=== PATIENT | female | born 1935 | race African-American/Black ===

== ENCOUNTER 2016-10-02 09:14 | Emergency (ER) | payer OTHER, MEDICARE ==
[~2016-10-02] VITALS: Ht 154.9 cm; Wt 81.2 kg
[~2016-10-02 09:14] MED LIST: AMLO10TA2 PO; ASPI81TA2 PO; ATOR20TA PO; CARV3.122 PO; CLOP75TA27 PO; Cefpodoxime Proxetil PO; ESOM40CA25 PO; FOLI0.8T3 PO; FURO-68 PO; FURO-69 PO; HYDR-971 PO; HYDR100T24 PO; INSU100I13 SQ; LEVO75TA PO; LOSA100T2 PO; METH4TAB2 PO; METO-269 PO; ORPH100T PO; OXYC-323 PO; PANT40TA3 PO; SERT25TA4 PO; SEVE800T9 PO; TRAZ50TA15 PO
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
[2016-10-02 09:47] VITALS: BP 191/69
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
[2016-10-02] MEDS ORDERED: DIAZ5TAB PO (10:21)
== END 2016-10-02 10:50 | disposition home or self-care (01) ==
LOC: ER 09:14
DX: S16.1XXA Strain of muscle, fascia and tendon at neck level, initial encounter (principal); S20.211A Contusion of right front wall of thorax, initial encounter; S09.90XA Unspecified injury of head, initial encounter; E11.22 Type 2 diabetes mellitus with diabetic chronic kidney disease; I13.0 Hypertensive heart and chronic kidney disease with heart failure and stage 1 through stage 4 chronic kidney disease, or unspecified chronic kidney disease; N18.9 Chronic kidney disease, unspecified; I50.9 Heart failure, unspecified; E89.0 Postprocedural hypothyroidism; K21.9 Gastro-esophageal reflux disease without esophagitis; Z99.2 Dependence on renal dialysis; Z86.73 Personal history of transient ischemic attack (TIA), and cerebral infarction without residual deficits; V49.60XA Unspecified car occupant injured in collision with unspecified motor vehicles in traffic accident, initial encounter; Y93.89 Activity, other specified; Y92.410 Unspecified street and highway as the place of occurrence of the external cause; Y99.8 Other external cause status
CPT/HCPCS: 70450; 70486; 71010; 72125; 99284-25

== ENCOUNTER 2016-10-29 11:35 | Emergency (ER) | payer MEDICARE, OTHER ==
[~2016-10-29] VITALS: Ht 154.9 cm; Wt 80.7 kg
[~2016-10-29 11:35] MED LIST changes: +ASPI-630 PO; -ASPI81TA2 PO; -CLOP75TA27 PO; +CLOP75TA57 PO; +DIAZ5TAB PO
--- NOTE | 2016-10-29 12:28 | PHYS DOC ---
Past Medical History Past Medical History: Cancer, CHF, CVA, Diabetes-Type II, GERD, Hypertension, Hypothyroid, Renal Failure, Additional Disease, Other Additional Past Medical Histor: Breast cancer, dialysis T- Past Surgical History: Cancer Surgery, Cholecystectomy, Hysterectomy, Other Additional Past Surgical Histo: Fistula RUE, Bilateral mastectomy, THYROIDECTOMY, HERNIA Alcohol Use: None Drug Use: None Adult General Chief Complaint Chief Complaint: MECHANICAL FALL HPI HPI Patient is a 81 year old and [place] female who presents with a fall. She has a past medical history of Cancer, CHF, CVA, Diabetes-Type II, GERD, Hypertension , Hypothyroid, Renal Failure, Additional Disease, Other Review of Systems Review of Systems Constitutional: Denies fever or chills [] Eyes: Denies change in visual acuity, redness, or eye pain [] HENT: Denies nasal congestion or sore throat [] Respiratory: Denies cough or shortness of breath [] Cardiovascular: No additional information not addressed in HPI [] GI: Denies abdominal pain, nausea, vomiting, bloody stools or diarrhea [] : Denies dysuria or hematuria [] Musculoskeletal: Denies back pain or joint pain [] Integument: Denies rash or skin lesions [] Neurologic: Denies headache, focal weakness or sensory changes [] Endocrine: Denies polyuria or polydipsia [] Allergies Allergies Allergies Coded Allergies Type Severity Reaction Last Updated Verified No Known Drug Allergies 04/13/14 No Physical Exam Physical Exam Constitutional: Well developed, well nourished, no acute distress, non-toxic appearance. [] HENT: Normocephalic, atraumatic, bilateral external ears normal, oropharynx moist, no oral exudates, nose normal. [] Eyes: PERRLA, EOMI, conjunctiva normal, no discharge. [] Neck: Cervical collar in place no stridor. [] Cardiovascular:Heart rate regular rhythm, no murmur [] Lungs & Thorax: Bilateral breath sounds clear to auscultation [] Abdomen: Bowel sounds normal, soft, no tenderness, no masses, no pulsatile masses. [] Skin: Warm, dry, no erythema, no rash. [] Back: No tenderness, no CVA tenderness. [] Extremities: Palpation of the right knee with mild effusion noted, tender palpation over the left hip, no cyanosis, no clubbing, ROM intact, no edema. [] Neurologic: Alert and oriented X 3, normal motor function, normal sensory function, no focal deficits noted. [] Psychologic: Affect normal, judgement normal, mood normal. [] Current Patient Data Vital Signs Vital Signs Date Time Temp Pulse Resp B/P (MAP) Pulse Ox O2 Delivery O2 Flow Rate FiO2 10/29/16 14:09 68 18 173/82 (112) 97 Room Air 10/29/16 11:35 98.4 98.4 EKG EKG [] Radiology/Procedures Radiology/Procedures [facility] [address] [place] [address] IMAGING REPORT Signed PATIENT: BRANT HALL ACCOUNT: [id number] : 1935 LOCATION: ER AGE: 81 SEX: F EXAM STATUS: REG ER ORD. PHYSICIAN: KVNG ALLRED MD REASON: fall PROCEDURE: CT HEAD AND CERVICAL SPINE WO Indication fall. Pain. Injury to the head and neck. Noncontrast images of the head were obtained. The cervical spine was also evaluated. Images of the cervical spine were reformatted in the coronal and sagittal planes. Note is made of similar imaging 10/02/2016. CT head: Findings No acute calvarial finding is seen. The visualized paranasal sinuses are unremarkable. There is no subdural or epidural hematoma. Lucency in the left deep white matter compatible with an old insult is noted appearing similar. No mass or midline shift is seen. There is no hemorrhage. Acute finding or significant change when compared to the prior study is not seen. CT cervical spine: Findings. The lung apices are clear. A vascular stent is noted. There are occasional nodules in the right lobe of the thyroid appearing similar to the previous exam. A definite significant soft tissue finding is not seen. Review of axial images is negative with regards to fracture. Some degenerative changes are noted. Reformatted images show no fracture but confirm modest degenerative change. IMPRESSION: Spondylitic changes in the cervical spine. No fracture seen. No acute intracranial finding is seen PQRS Compliance Statement: One or more of the following individualized dose reduction techniques were utilized for this examination: 1. Automated exposure control 2. Adjustment of the mA and/or kV according to patient size 3. Use of iterative reconstruction technique DICTATED and SIGNED BY: POWER CARLIN MD DATE: 10/29/16 1307 CC: KVNG ALLRED MD; NICHOLAS FAIRCHILD MD ~ [id number] [place], [place] [id number] IMAGING REPORT Signed PATIENT: BRANT HALL ACCOUNT: [id number] : 1935 LOCATION: ER AGE: 81 SEX: F EXAM STATUS: REG ER ORD. PHYSICIAN: KVNG ALLRED MD REASON: fall PROCEDURE: LUMBAR SPINE 2-3V Indication fall, pain. AP and lateral views of the lumbar spine were obtained as well as a and coned-down view targeted to the lumbosacral junction. There is probable bony demineralization. No acute finding in the lumbar spine is seen. There are some facet degenerative changes. There is a probable hemangioma at L2. Vascular calcification is noted. Significant degenerative changes noted associated with the left hip IMPRESSION: No acute finding in the lumbar spine DICTATED and SIGNED BY: POWER CARLIN MD DATE: 10/29/16 1407 CC: KVNG ALLRED MD; NICHOLAS FAIRCHILD MD ~ [address] [id number] IMAGING REPORT Signed PATIENT: BRANT HALL ACCOUNT: [id number] : 1935 LOCATION: ER AGE: 81 SEX: F EXAM STATUS: REG ER ORD. PHYSICIAN: KVNG ALLRED MD REASON: fall PROCEDURE: THORACIC SPINE 3V Indication pain. AP and lateral views of the thoracic spine were obtained as well as a swimmer's There are some mild degenerative changes in the thoracic spine.. No acute finding is apparent. Vascular stent is noted in the right hemithorax. There is generalized cardiomegaly. IMPRESSION: No acute finding DICTATED and SIGNED BY: POWER CARLIN MD DATE: 10/29/16 1410 CC: KVNG ALLRED MD; NICHOLAS FAIRCHILD MD ~ [address] [id number] IMAGING REPORT Signed PATIENT: BRANT HALL ACCOUNT: [id number] : 1935 LOCATION: ER AGE: 81 SEX: F EXAM STATUS: PRE ER ORD. PHYSICIAN: KVNG ALLRED MD REASON: fall PROCEDURE: KNEE RIGHT 4V Indication fall, pain. AP oblique and lateral views of the right knee were obtained as well as a sunrise view. There is some medial joint space compartment narrowing. There is probable chondrocalcinosis. There is slight patellofemoral narrowing. Soft tissue swelling above the knee is noted and there is a probable small joint effusion. An acute bony finding is not seen. IMPRESSION: Chronic changes. No acute bony finding seen DICTATED and SIGNED BY: POWER CARLIN MD DATE: 10/29/16 1302 CC: KVNG ALLRED MD; NICHOLAS FAIRCHILD MD ~ [id number] [place] [address] IMAGING REPORT Signed PATIENT: BRANT HALL ACCOUNT: [id number] : 1935 LOCATION: ER AGE: 81 SEX: F EXAM STATUS: REG ER ORD. PHYSICIAN: KVNG ALLRED MD REASON: fall PROCEDURE: HIP LEFT 2V WITH PELVIS Indication fall. Pain. An AP view of the pelvis was obtained as well as individual AP and frog leg views of the left hip. There are some degenerative changes involving both hips manifested as medial joint space compartment narrowing. Some cystic degeneration is noted associated with the acetabulum of the left hip. No acute bony finding is seen IMPRESSION: No acute bony finding DICTATED and SIGNED BY: POWER CARLIN MD DATE: 10/29/161316 CC: KVNG ALLRED MD; NICHOLAS FAIRCHILD MD ~ Impressions: Neck sprain Closed head injury Right knee pain Muscle skeletal back pain Course & Med Decision Making Course & Med Decision Making Pertinent Labs and Imaging studies reviewed. (See chart for details) CT scan of her head neck and plain films of her pelvis, left hip, right knee, thoracic and lumbar spines did not show anything fracture or displaced. Patient being discharged with tramadol rate she was able to ambulate around the department. Return precautions given she is agreeable to the plan and being discharged in stable condition this time with her daughter. Dragon Disclaimer Dragon Disclaimer This electronic medical record was generated, in whole or in part, using a voice recognition dictation system. Departure Departure Impression: Primary Impression: Cervical strain Disposition: 01 HOME, SELF-CARE Condition: STABLE Referrals: NICHOLAS FAIRCHILD MD (PCP) Patient Instructions: Back Pain, Adult, [id number] Additional Instructions: The CAT scans and x-rays not show any broken. Your being discharged home. You can use tramadol as needed for pain. You can also tried Tylenol as well. Return ER for severe pain, confusion or other concerns. Scripts Tramadol Hcl (TRAMADOL HCL) 50 Mg Tablet 1 TAB PO PRN Q6HRS Y for PAIN, #20 TAB Prov: KVNG ALLRED MD 10/29/16 Problem Qualifiers Primary Impression: Cervical strain Encounter type: initial encounter Qualified Codes: S16.1XXA - Strain of muscle, fascia and tendon at neck level, initial encounter KVNG ALLRED MD Oct 29, 2016 12:28
--- NOTE | 2016-10-29 13:06 | RAD ---
Indication fall, pain. AP oblique and lateral views of the right knee were obtained as well as a sunrise view. There is some medial joint space compartment narrowing. There is probable chondrocalcinosis. There is slight patellofemoral narrowing. Soft tissue swelling above the knee is noted and there is a probable small joint effusion. An acute bony finding is not seen. IMPRESSION: Chronic changes. No acute bony finding seen
--- NOTE | 2016-10-29 13:19 | RAD ---
Indication fall. Pain. Injury to the head and neck. Noncontrast images of the head were obtained. The cervical spine was also evaluated. Images of the cervical spine were reformatted in the coronal and sagittal planes. Note is made of similar imaging 10/02/2016. CT head: Findings No acute calvarial finding is seen. The visualized paranasal sinuses are unremarkable. There is no subdural or epidural hematoma. Lucency in the left deep white matter compatible with an old insult is noted appearing similar. No mass or midline shift is seen. There is no hemorrhage. Acute finding or significant change when compared to the prior study is not seen. CT cervical spine: Findings. The lung apices are clear. A vascular stent is noted. There are occasional nodules in the right lobe of the thyroid appearing similar to the previous exam. A definite significant soft tissue finding is not seen. Review of axial images is negative with regards to fracture. Some degenerative changes are noted. Reformatted images show no fracture but confirm modest degenerative change. IMPRESSION: Spondylitic changes in the cervical spine. No fracture seen. No acute intracranial finding is seen PQRS Compliance Statement: One or more of the following individualized dose reduction techniques were utilized for this examination: 1. Automated exposure control 2. Adjustment of the mA and/or kV according to patient size 3. Use of iterative reconstruction technique
--- NOTE | 2016-10-29 13:21 | RAD ---
Indication fall. Pain. An AP view of the pelvis was obtained as well as individual AP and frog leg views of the left hip. There are some degenerative changes involving both hips manifested as medial joint space compartment narrowing. Some cystic degeneration is noted associated with the acetabulum of the left hip. No acute bony finding is seen IMPRESSION: No acute bony finding
--- NOTE | 2016-10-29 14:12 | RAD ---
Indication fall, pain. AP and lateral views of the lumbar spine were obtained as well as a and coned-down view targeted to the lumbosacral junction. There is probable bony demineralization. No acute finding in the lumbar spine is seen. There are some facet degenerative changes. There is a probable hemangioma at L2. Vascular calcification is noted. Significant degenerative changes noted associated with the left hip IMPRESSION: No acute finding in the lumbar spine
--- NOTE | 2016-10-29 14:14 | RAD ---
Indication pain. AP and lateral views of the thoracic spine were obtained as well as a swimmer's There are some mild degenerative changes in the thoracic spine.. No acute finding is apparent. Vascular stent is noted in the right hemithorax. There is generalized cardiomegaly. IMPRESSION: No acute finding
[2016-10-29] MEDS ORDERED: TRAM50TA PO (14:55)
[2016-10-29 15:03] VITALS: BP 168/71
== END 2016-10-29 15:14 | disposition home or self-care (01) ==
LOC: ER 11:35
DX: S16.1XXA Strain of muscle, fascia and tendon at neck level, initial encounter (principal); M25.552 Pain in left hip; M25.461 Effusion, right knee; M54.6 Pain in thoracic spine; M54.5 Low back pain; E11.22 Type 2 diabetes mellitus with diabetic chronic kidney disease; I13.0 Hypertensive heart and chronic kidney disease with heart failure and stage 1 through stage 4 chronic kidney disease, or unspecified chronic kidney disease; N18.9 Chronic kidney disease, unspecified; I50.9 Heart failure, unspecified; E89.0 Postprocedural hypothyroidism; K21.9 Gastro-esophageal reflux disease without esophagitis; Z99.2 Dependence on renal dialysis; Z90.49 Acquired absence of other specified parts of digestive tract; Z90.710 Acquired absence of both cervix and uterus; Z90.13 Acquired absence of bilateral breasts and nipples; Z86.73 Personal history of transient ischemic attack (TIA), and cerebral infarction without residual deficits; W18.39XA Other fall on same level, initial encounter; Y93.89 Activity, other specified; Y92.89 Other specified places as the place of occurrence of the external cause; Y99.8 Other external cause status
CPT/HCPCS: 70450; 72072; 72100; 72125; 73502; 73564; 99284-25

== ENCOUNTER 2016-11-01 21:44 | Emergency (ER) | payer MEDICARE, OTHER ==
[~2016-11-01] VITALS: Ht 154.9 cm; Wt 80.7 kg
[~2016-11-01 21:44] MED LIST changes: +TRAM50TA PO
[2016-11-01 22:37] LABS: BASO % 1 % (0-3); EOS % 4 % (0-3); HEMATOCRIT 35.7 % (36.0-47.0); HEMOGLOBIN 11.7 g/dL (12.0-15.5); LYMPH # 0.8 x10^3/uL (1.0-4.8); LYMPH % 13 % (24-48); MEAN CORPUSCULAR HEMOGLOBIN 33 pg (25-35); MEAN CORPUSCULAR HGB CONC 33 g/dL (31-37); MEAN CORPUSCULAR VOLUME 101 fL (79-100); MONO % 16 % (0-9); NEUT % 67 % (31-73); PLATELET COUNT 204 x10^3/uL (140-400); RED BLOOD COUNT 3.54 x10^6/uL (3.50-5.40); RED CELL DISTRIBUTION WIDTH 15.7 % (11.5-14.5); WHITE BLOOD COUNT 6.6 x10^3/uL (4.0-11.0)
[2016-11-01 22:44] LABS: INR 1.1 (0.8-1.1); PROTHROMBIN TIME PATIENT 13.6 SEC (11.7-14.0)
[2016-11-01 23:30] LABS: CALCIUM 8.1 mg/dL (8.5-10.1); CREATININE 7.4 mg/dL (0.6-1.0); GFR 6.4; POTASSIUM 4.3 mmol/L (3.5-5.1)
[2016-11-01 23:36] LABS: ALBUMIN 3.4 g/dL (3.4-5.0); ALBUMIN/GLOBULIN RATIO 0.9 (1.0-1.7); TOTAL BILIRUBIN 0.7 mg/dL (0.2-1.0); TOTAL PROTEIN 7.4 g/dL (6.4-8.2)
--- NOTE | 2016-11-01 23:51 | RAD ---
Examination: Ultrasound right upper extremity venous duplex HISTORY: History of right hand swelling COMPARISON: None TECHNIQUE: Grayscale, color Doppler 2D, spectral waveform analysis of the right upper extremity venous system performed. FINDINGS: The visualized internal jugular vein, subclavian vein, axillary vein, brachial vein, basilic vein, cephalic, radial and ulnar veins are patent. Patent appearing dialysis graft with the proximal anastomosis, mid graft, distal graft demonstrating vascular flow within. 2 areas of mild aneurysmal dilatation identified , one measuring 1.2 cm in the mid graft region and another in the measuring 1.1 cm in the distal graft region. IMPRESSION: 1. No evidence of deep venous thrombosis. 2. Patent dialysis graft. 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 Electronically signed by: Jacob Pearce MD (11/01/2016 11:47 PM)
[2016-11-02 00:40] VITALS: BP 183/77
--- NOTE | 2016-11-02 00:48 | PHYS DOC ---
Past Medical History Past Medical History: Cancer, CHF, CVA, Diabetes-Type II, GERD, Hypertension, Hypothyroid, Renal Failure, Additional Disease, Other Additional Past Medical Histor: Breast cancer, dialysis Past Surgical History: Cancer Surgery, Cholecystectomy, Hysterectomy, Other Additional Past Surgical Histo: Fistula RUE, Bilateral mastectomy, THYROIDECTOMY, HERNIA Alcohol Use: None Drug Use: None Adult General Chief Complaint Chief Complaint: MULTIPLE COMPLAINTS HPI HPI Patient is a 81 year old female with a history significant for hypertension, diabetes, CHF, PE, TIA who presents here today secondary to right upper extremity and right lower 70 swelling that started approximately 7:30 PM. Patient denies any fevers shakes chills nausea vomiting diarrhea chest pain. Patient reports that she is feeling short of breath however this is not new for her. Patient reports she gets dialyzed every Sunday and Sunday. Patient reports her primary care doctor is Dr. pickard, patient's kidney doctor Dr. Fuller. Patient's physical exam was significant for swelling to her right upper extremity. Patient graft had a positive bruit and thrill. Patient is neurovascularly intact. Patient's pulses were intact. Patient had good capillary refill. Sensation was intact. A Shantz lower 70 has actually no new edema. Patient does have edema to her knee which she reports this is chronic. Patient's labs were within normal limits. Patient's ultrasound which revealed no DVT. I discussed the case with Dr. Greene who is on-call for Dr. Fuller and he feels that the patient likely has central venous stenosis. Patient reports she has a history of central venous stenosis in the past and feels that this is likely what is going on currently. He has recommended that we discharge her to home and to follow-up as scheduled tomorrow for dialysis and they will schedule her as an outpatient for management of her central venous stenosis. Assessment and plan a 81-year-old female with a history significant for end- stage renal disease who has a graft in her right upper extremity presents here today with right upper ext edema. Case was discussed with her tablet repair to feel that the patient is stable to be discharged home and treated with her dialysis tomorrow at which time they will schedule her for outpatient procedure to correct the central venous stenosis that is likely the cause of her edema. Review of Systems Review of Systems Constitutional: Denies fever or chills [] Eyes: Denies change in visual acuity, redness, or eye pain [] All other review systems are negative except as documented in the history of present illness portion. Allergies Allergies Allergies Coded Allergies Type Severity Reaction Last Updated Verified No Known Drug Allergies 04/13/14 No Physical Exam Physical Exam Constitutional: Well developed, well nourished, no acute distress, non-toxic appearance. [] HENT: Normocephalic, atraumatic, bilateral external ears normal, oropharynx moist, no oral exudates, nose normal. [] Eyes: PERRLA, EOMI, conjunctiva normal, no discharge. [] Neck: Normal range of motion, no tenderness, supple, no stridor. [] Cardiovascular:Heart rate regular rhythm, Lungs & Thorax: Bilateral breath sounds clear to auscultation [] Abdomen: Bowel sounds normal, soft, no tenderness, no masses, no pulsatile masses. [] Skin: Warm, dry, no erythema, no rash. [] Back: No tenderness, no CVA tenderness. [] Extremities: See above. Neurologic: Alert and oriented X 3, normal motor function, normal sensory function, no focal deficits noted. [] Psychologic: Affect normal, judgement normal, mood normal. [] Current Patient Data Vital Signs Vital Signs Date Time Temp Pulse Resp B/P (MAP) Pulse Ox O2 Delivery O2 Flow Rate FiO2 11/02/16 00:03 70 162/77 (105) 98 Room Air 11/01/16 23:00 18 11/01/16 21:53 99.2 99.2 Lab Values Laboratory Tests Test 11/01/16 22:25 11/01/16 22:45 White Blood Count 6.6 x10^3/uL (4.0-11.0) Red Blood Count 3.54 x10^6/uL (3.50-5.40) Hemoglobin 11.7 g/dL (12.0-15.5) L Hematocrit 35.7 % (36.0-47.0) L Mean Corpuscular Volume 101 fL (79-100) H Mean Corpuscular Hemoglobin 33 pg (25-35) Mean Corpuscular Hemoglobin Concent 33 g/dL (31-37) Red Cell Distribution Width 15.7 % (11.5-14.5) H Platelet Count 204 x10^3/uL (140-400) Neutrophils (%) (Auto) 67 % (31-73) Lymphocytes (%) (Auto) 13 % (24-48) L Monocytes (%) (Auto) 16 % (0-9) H Eosinophils (%) (Auto) 4 % (0-3) H Basophils (%) (Auto) 1 % (0-3) Neutrophils # (Auto) 4.5 x10^3uL (1.8-7.7) Lymphocytes # (Auto) 0.8 x10^3/uL (1.0-4.8) L Monocytes # (Auto) 1.0 x10^3/uL (0.0-1.1) Eosinophils # (Auto) 0.2 x10^3/uL (0.0-0.7) Basophils # (Auto) 0.0 x10^3/uL (0.0-0.2) Prothrombin Time 13.6 SEC (11.7-14.0) Prothrombin Time INR 1.1 (0.8-1.1) Sodium Level 139 mmol/L (136-145) Potassium Level 4.3 mmol/L (3.5-5.1) Chloride Level 104 mmol/L (98-107) Carbon Dioxide Level 25 mmol/L (21-32) Anion Gap 10 (6-14) Blood Urea Nitrogen 39 mg/dL (7-20) H Creatinine 7.4 mg/dL (0.6-1.0) H Estimated GFR (Cockcroft-Gault) 6.4 BUN/Creatinine Ratio 5 (6-20) L Glucose Level 94 mg/dL (70-99) Calcium Level 8.1 mg/dL (8.5-10.1) L Total Bilirubin 0.7 mg/dL (0.2-1.0) Aspartate Amino Transferase (AST) 9 U/L (15-37) L Alanine Aminotransferase (ALT) 9 U/L (14-59) L Alkaline Phosphatase 120 U/L (46-116) H Total Protein 7.4 g/dL (6.4-8.2) Albumin 3.4 g/dL (3.4-5.0) Albumin/Globulin Ratio 0.9 (1.0-1.7) L Laboratory Tests 11/01/16 22:25 Laboratory Tests 11/01/16 22:45 EKG EKG [] Radiology/Procedures Radiology/Procedures [] Course & Med Decision Making Course & Med Decision Making Pertinent Labs and Imaging studies reviewed. (See chart for details) [] Dragon Disclaimer Dragon Disclaimer This electronic medical record was generated, in whole or in part, using a voice recognition dictation system. Departure Departure Impression: Primary Impression: Renal failure Additional Impression: Arm edema Referrals: NICHOLAS PICKARD MD (PCP) Patient Instructions: Kidney Failure Additional Instructions: Please make sure you go to dialysis tomorrow and they will schedule you as an outpatient for treatment of your central venous stenosis of your right upper extremity. Problem Qualifiers FRANCY RIVERS MD Nov 02, 2016 00:48
--- NOTE | 2016-11-02 00:51 | ACF ---
Admission Forms Criteria RENAL FAILURE, ACUTE Clinical Indications for Admission to Inpatient Care ( Place 'X' for any and all applicable criteria): Admission is indicated for ALL (if I & II) or III of the following [A](2)(3)(4)( 5)(6)(7): [X]I. Acute renal failure as indicated by ANY ONE of the following: [ ]a) A 3-fold rise in serum creatinine from baseline [X]b) Serum creatinine greater than 4 mg/dL (354 micromoles/L) with an acute rise greater than 0.5 mg/dL (44.2 micromoles/L) [ ]c) Reduction of more than 75% in estimated glomerular filtration rate from baseline [ ]d) Estimated glomerular filtration rate less than 35 mL/min/1.73m2 (0.59mL/sec/1.73m2)in a child up to 18 years of age [ ]e) Anuria indicated by ALL of the following: [ ]i) Adequate volume status [ ]ii) Cessation of urine output indicated by ANY ONE of the following: [ ]1) Urine output less than 0.3 mL/kg/hr for 24 hours [ ]2) Anuria (urine output less than 0.1 mL/kg/ hr) for 12 hours [X] II. Renal failure cannot be managed in an outpatient setting or observational care setting as indicating by ANY ONE of the following: [ ]a) Altered mental status that is severe or persistent [ ]b) Volume overload or Respiratory distress (eg, clinically significant pulmonary edema) that is severe or persistent [ ]c) Cardiac arrhythmias of immediate concern [ ]d) Hemodynamic instability [ ]e) Clinically significant electrolyte abnormality that requires inpatient care (eg, hyperkalemia with severe ECG findings)[B] [ ]f) Clinically significant metabolic abnormality (eg, acidosis) that is severe or persistent [ ]g) Acute treatment of renal failure (eg, renal replacement therapy) not feasible or appropriate in observational care setting [ ]h) Clinical situation too unstable or uncertain (eg, inadequate urine output, ongoing decline in renal function, etiology unclear) [ ]i) Necessary support and caregiver ability to comply with outpatient treatment cannot be arranged in observation care timeframe (eg, within 24 hours) [ ]j) Other significant finding or clinical condition judged not to be within scope of observation care [ ]III.General contraindications and/or Inappropriate clinical situations for Observational Care in patients with Acute Renal Failure, when ANY ONE of the following is required: [ ]a) Prediction of prolongation of LOS based on ANY ONE of the following may be considered as a contraindication for observational care 2, 3, 4, 5, 6, 7, 8 , 9, 10, 11 [ ]i) Age > 65 yrs. [ ]ii) Patient arriving by ambulance [ ]iii) Patient with high acuity [ ]iv) Patient requiring vital sign monitoring [ ]v) Patient on IV medication [ ]b) Systolic blood pressures 180mmHg 3,12 [ ]c) Patient with altered mental status including delirium and other alteration of consciousness, (3) [ ]d) Patient whose discharge disposition will be to a residential home or rehabilitation home should not be managed in Emergency Department Observation Unit. CMS rule requires 3 days hospital stay before such placement.3,13 [ ]e) Patient with failure to thrive due to broad array of etiologies 3, 16,17 [ ]f) Inability to ambulate 3,14 Extended stay beyond goal length of stay may be needed for(13) [ ]a) Continuing uremic complications [ ]b) Care for comorbidities [ ]c) acute renal failure [ ]d) Need for dialysis The original [employer] content created by [employer] has been revised. The portions of the content which have been revised are identified through the use of italic text or in bold, and [facility] has neither reviewed nor approved the modified material. All other unmodified content is copyright [employer]. Please see references footnoted in the original [facility] edition 2016 Admission Criteria Met?: Yes RIN BEE Nov 02, 2016 00:51
--- NOTE | 2016-11-02 08:43 | EKG ---
[facility] [address] [place] [address] Test Date: 2016-11-01 Test Time: 22:16:21 Pat Name: BRANT HALL Department: Room: Gender: F [employer]eles[employer] Manager: : [id number] Requested By: FRANCY RIVERS Order Number: [id number] Reading MD: Bam Shaffer Measurements Intervals Gaston Rate: 70 P: 0 MT: 186 QRS: -13 QRSD: 96 T: 140 QT: 408 QTc: 443 Interpretive Statements SINUS RHYTHM Electronically Signed On 11-02-2016 11:15:25 CDT by Bam Shaffer
== END 2016-11-02 00:55 | disposition home or self-care (01) ==
LOC: ER 21:44
DX: I13.2 Hypertensive heart and chronic kidney disease with heart failure and with stage 5 chronic kidney disease, or end stage renal disease (principal); I50.9 Heart failure, unspecified; E11.22 Type 2 diabetes mellitus with diabetic chronic kidney disease; N18.6 End stage renal disease; R60.9 Edema, unspecified; E89.0 Postprocedural hypothyroidism; K21.9 Gastro-esophageal reflux disease without esophagitis; Z99.2 Dependence on renal dialysis; Z90.49 Acquired absence of other specified parts of digestive tract; Z90.710 Acquired absence of both cervix and uterus; Z86.73 Personal history of transient ischemic attack (TIA), and cerebral infarction without residual deficits; Z90.13 Acquired absence of bilateral breasts and nipples; Z86.711 Personal history of pulmonary embolism
CPT/HCPCS: 36415; 80053; 85027; 85610; 93005; 93971; 99285-25

== ENCOUNTER 2017-01-23 11:18 | Emergency (ER) | payer MEDICARE, OTHER ==
[~2017-01-23] VITALS: Ht 154.9 cm; Wt 84.8 kg
[2017-01-23] MEDS ORDERED: ACETAMINOPHEN 500 MG TABLET PO ONE (12:15)
--- NOTE | 2017-01-23 12:23 | ED.ADGEN ---
Past Medical History Past Medical History: Cancer, CHF, CVA, Diabetes-Type II, GERD, Hypertension, Hypothyroid, Renal Failure, Additional Disease, Other Additional Past Medical Histor: Breast cancer, dialysis T--SUN Past Surgical History: Cancer Surgery, Cholecystectomy, Hysterectomy, Other Additional Past Surgical Histo: Fistula RUE, Bilateral mastectomy, THYROIDECTOMY, HERNIA Alcohol Use: None Drug Use: None Adult General Chief Complaint Chief Complaint: DIALYSIS PROBLEM HPI HPI Patient is a 81 year old woman, history of end-stage renal disease and hemodialysis, CVA, CHF, hypertension, who presents to the emergency department from her dialysis center with a complaint of bleeding from her dialysis graft. Patient states that she had almost complete session of dialysis, as as regularly scheduled, however after her dialysis was completed she had persistent bleeding. Patient states that she was bleeding for an hour, states that "there was a lot of blood". She states that usually she does not have issues with bleeding. Patient is on aspirin and Plavix. She denies any recent medication changes, additional medications or missed doses of medication. She states she is expressing a mild frontal headache at this time, denies any lightheadedness or dizziness, any chest pain or shortness breath, any nausea or vomiting, any weakness, numbness, tingling or other complaints. Patient had a clamp applied at the dialysis center, and was brought to the ED for additional evaluation. Review of Systems Review of Systems Constitutional: Denies fever or chills. [] Eyes: Denies change in visual acuity. [] HENT: Denies nasal congestion or sore throat. [] Respiratory: Denies cough or shortness of breath. [] Cardiovascular: Denies chest pain or edema. Bleeding from AV graft in the right upper extremity. [] GI: Denies abdominal pain, nausea, vomiting, bloody stools or diarrhea. [] : Denies dysuria. [] Musculoskeletal: Denies back pain or joint pain. [] Integument: Denies rash. [] Neurologic: Denies headache, focal weakness or sensory changes. [] Endocrine: Denies polyuria or polydipsia. [] Lymphatic: Denies swollen glands. [] Psychiatric: Denies depression or anxiety. [] Current Medications Current Medications Current Medications Medications (Trade) Dose Ordered Sig/Sahil Start Time Stop Time Status Last Admin Dose Admin Acetaminophen (Tylenol) 1,000 mg 1X ONCE 01/23/17 12:15 01/23/17 12:16 DC 01/23/17 13:04 1,000 MG Amlodipine Besylate (Norvasc) 10 mg 1X ONCE 01/23/17 13:15 01/23/17 13:16 DC Cellulose 1 each 1X ONCE 01/23/17 13:15 01/23/17 13:16 DC 01/23/17 13:28 1 EACH Hydralazine HCl (Apresoline) 100 mg 1X ONCE 01/23/17 13:15 01/23/17 13:16 DC 01/23/17 13:26 100 MG Losartan Potassium (Cozaar) 100 mg 1X ONCE 01/23/17 13:15 01/23/17 13:16 DC 01/23/17 13:24 100 MG Allergies Allergies Allergies Coded Allergies Type Severity Reaction Last Updated Verified No Known Drug Allergies 04/13/14 No Physical Exam Physical Exam Constitutional: Well developed, well nourished, no acute distress, non-toxic appearance. [] HENT: Normocephalic, atraumatic, bilateral external ears normal, oropharynx moist, no oral exudates, nose normal. [] Eyes: PERRLA, EOMI, conjunctiva normal, no discharge. [] Neck: Normal range of motion, no tenderness, supple, no stridor. [] Cardiovascular:Heart rate regular rhythm, no murmur, S1, S2, rubs or gallops. [] Lungs & Thorax: Diminished breath sounds at bases bilaterally, no wheezing, rhonchi, rales. No chest or crepitus or tenderness. \\ Abdomen: Bowel sounds normal, soft, no tenderness, no masses, no pulsatile masses. [] Skin: Warm, dry, no erythema, no rash. [] Back: No tenderness, no CVA tenderness. [] Extremities: Patient with a right upper extremity AV graft, with a good thrill, with clamp in place over the upper aspect. No tenderness, no cyanosis, no clubbing, ROM intact, no edema. Negative Primo's sign.[] Neurologic: Alert and oriented X 3, normal motor function, normal sensory function, no focal deficits noted. [] Psychologic: Affect normal, judgement normal, mood normal. [] Current Patient Data Vital Signs Vital Signs Date Time Temp Pulse Resp B/P (MAP) Pulse Ox O2 Delivery O2 Flow Rate FiO2 9/5/17 14:16 62 168/77 (107) 100 Room Air 01/23/17 12:45 98.1 16 98.1 Lab Values Laboratory Tests Test 01/23/17 12:25 01/23/17 13:10 POC Hemoglobin 13.6 g/dL (12-15) POC Hematocrit 40 % (36-40) POC Sodium 135 mmol/L (135-145) POC Potassium 3.8 mmol/L (3.5-5.0) POC Chloride 100 mmol/L (98-110) POC Total CO2 22 mmol/L (23-32) L Anion Gap 18 mmol/L (6-14) H POC Blood Urea Nitrogen 17 mg/dL (8-26) POC Creatinine 4.4 mg/dL (0.5-1.4) H Glucose Level 164 mg/dL (70-99) H POC Ionized Calcium (Vicki) 1.06 mmol/L (1.13-1.32) L Glucose (Fingerstick) 133 mg/dL (70-99) H Laboratory Tests 01/23/17 12:25 EKG EKG Not indicated. Radiology/Procedures Radiology/Procedures Not indicated.[] Course & Med Decision Making Course & Med Decision Making Pertinent Labs and Imaging studies reviewed. (See chart for details) When clamp removed patient noted to have a small using from the needlestick site on the upper aspect of her AV graft. Dressing was reapplied, when it was removed for a recheck Dat 20 minutes later, with no further bleeding at this point. Surgicel was a placed in the area, and tape was placed over the area. Patient was observed for another 25 minutes emergency department without any further bleeding. Patient with hemolytic of 13.6, which are lites within normal limits on her i-STAT in the ED. This is more than 2 and half hours out from onset of bleeding. She was ambulating without difficulty, no lightheadedness or dizziness, and stated that she had a headache, but it was resolved after receiving Tylenol and eating a meal in the ED. Discussed with patient concerning symptoms that prompt return, patient to leave the dressing in place until tomorrow, and then to remove carefully. Patient to continue with her regular scheduled medications and dialysis follow-up. Patient discharged home with clear and detailed instructions and return precautions as stated with plan as above. Dragon Disclaimer Dragon Disclaimer This electronic medical record was generated, in whole or in part, using a voice recognition dictation system. Departure Impression: Primary Impression: AV graft malfunction Disposition: 01 HOME, SELF-CARE Condition: IMPROVED JABIER QUIROGA DO Jan 23, 2017 12:23
[2017-01-23 12:32] LABS: POTASSIUM ISTAT 3.8 mmol/L (3.5-5.0)
[2017-01-23] MEDS ORDERED: SURGICEL FIBRILLAR 1X2 EACH. TP ONE (13:15)
[2017-01-23] MEDS ORDERED: LOSARTAN POTASSIUM 50 MG TABLET. PO ONE (13:15)
[2017-01-23] MEDS ORDERED: amLODIPine BESYLATE 5 MG TABLET PO ONE (13:15)
[2017-01-23 14:16] VITALS: BP 168/77
== END 2017-01-23 14:29 | disposition home or self-care (01) ==
LOC: ER 11:18
DX: T82.9XXA Unspecified complication of cardiac and vascular prosthetic device, implant and graft, initial encounter (principal); K21.9 Gastro-esophageal reflux disease without esophagitis; I13.2 Hypertensive heart and chronic kidney disease with heart failure and with stage 5 chronic kidney disease, or end stage renal disease; E11.22 Type 2 diabetes mellitus with diabetic chronic kidney disease; I50.9 Heart failure, unspecified; N18.6 End stage renal disease; Z99.2 Dependence on renal dialysis; Z86.73 Personal history of transient ischemic attack (TIA), and cerebral infarction without residual deficits; E03.9 Hypothyroidism, unspecified; Z90.710 Acquired absence of both cervix and uterus; Z90.49 Acquired absence of other specified parts of digestive tract; Z79.82 Long term (current) use of aspirin; Z79.02 Long term (current) use of antithrombotics/antiplatelets; Z85.3 Personal history of malignant neoplasm of breast; Z90.13 Acquired absence of bilateral breasts and nipples; Y92.89 Other specified places as the place of occurrence of the external cause
CPT/HCPCS: 80047; 82962; 99284

== ENCOUNTER 2017-02-10 16:15 | Inpatient (IN) | payer MEDICARE, OTHER ==
[~2017-02-10] VITALS: Ht 154.9 cm; Wt 79.0 kg
--- NOTE | 2017-02-10 17:33 | RAD ---
History: Abdominal distention for 2 days, breast cancer. Comparison: None. Technique: CT of the abdomen and pelvis was performed without intravenous or oral contrast. Exposure: One or more of the following individualized dose reduction techniques were utilized for this examination: 1. Automated exposure control 2. Adjustment of the mA and/or kV according to patient size 3. Use of iterative reconstruction technique Findings: Evaluation of solid organs is limited by lack of intravenous contrast. Evaluation of enteric structures may be limited by lack of oral contrast. Mild body wall edema is seen. Images of lower chest demonstrate enlargement of cardiac chambers. Coronary artery calcifications are seen. No focal hepatic mass is identified. Spleen and pancreas are unremarkable. Gallbladder is absent. Aortic atherosclerosis is seen. Both kidneys appear atrophic. Both kidneys demonstrate low-density lesions, not adequately characterized on this examination, statistically should be cysts. Left kidney demonstrates nonobstructive nephrolithiasis. There is also a focus of gas involving left renal collecting system. Small amount of gas is seen in the urinary bladder. No bowel obstruction or inflammation is identified. Small umbilical hernia containing fat is seen. No free air or free fluid is seen in the abdomen or pelvis. Degenerative changes are present in the spine. Impression: 1. Small amount of gas is seen involving the left renal collecting system. There is also gas involving the urinary bladder. This may be iatrogenic if there is a history of a recent bladder catheterization. If not appropriate history, gas-forming infection is possible. 2. No evidence of bowel obstruction. 3. Mild body wall edema. Enlargement of cardiac chambers. Electronically signed by: Osito Arguello MD (02/10/2017 5:30 PM) [id number]
--- NOTE | 2017-02-10 17:44 | PHYS DOC ---
Past Medical History Past Medical History: Cancer, CHF, CVA, Diabetes-Type II, GERD, Hypertension, Hypothyroid, Renal Failure, Additional Disease, Other Additional Past Medical Histor: Breast cancer, dialysis T- Past Surgical History: Cancer Surgery, Cholecystectomy, Hysterectomy, Other Additional Past Surgical Histo: Fistula RUE, Bilateral mastectomy, THYROIDECTOMY, HERNIA Alcohol Use: None Drug Use: None Adult General Chief Complaint Chief Complaint: UPPER EXTREMITY PAIN HPI HPI 81-year-old female presenting to the emergency department today with pain in her right upper extremity associated swelling. The pain is generalized throughout her arm and is a throbbing sensation. She also has epigastric abdominal pain that is nonradiating moderate intermittent and without alleviating or exacerbating factors. She has a history of breast cancer status post bilateral mastectomies end-stage renal disease type 2 diabetes hypertension. Review of systems is negative for shortness of breath chest pain nausea vomiting diaphoresis fevers or chills. All other review of systems is negative unless otherwise noted in history of present illness. ED course: 81-year-old female presenting with epigastric abdominal pain and right upper extremity swelling and pain. Triage vital signs afebrile with normal heart rate. Blood pressure elevated. Pertinent physical exam findings show soft nontender abdomen that is not tympanic to percussion. Negative McBurney's point. Negative Murray sign. EKG ordered along with blood work, CT of the abdomen pelvis along with ultrasound of her right upper extremity. Review of Systems Review of Systems SEE ABOVE. Current Medications Current Medications Current Medications Medications (Trade) Dose Ordered Sig/[facility] Start Time Stop Time Status Last Admin Dose Admin Hydromorphone HCl (Dilaudid) 0.5 mg PRN Q30MIN PRN 02/10/17 17:45 02/10/17 18:44 0.5 MG Labetalol HCl (Normodyne) 20 mg 1X ONCE 02/10/17 17:45 02/10/17 17:46 DC 02/10/17 18:51 20 MG Ondansetron HCl (Zofran) 4 mg 1X ONCE 02/10/17 17:45 02/10/17 17:46 DC 02/10/17 18:44 4 MG Allergies Allergies Allergies Coded Allergies Type Severity Reaction Last Updated Verified No Known Drug Allergies 04/13/14 No Physical Exam Physical Exam SEE ABOVE Constitutional: Well developed, well nourished, no acute distress, non-toxic appearance. [] HENT: Normocephalic, atraumatic, bilateral external ears normal, oropharynx moist, no oral exudates, nose normal. [] Eyes: PERRLA, EOMI, conjunctiva normal, no discharge. [] Neck: Normal range of motion, no tenderness, supple, no stridor. [] Cardiovascular:Heart rate regular rhythm, no murmur [] Lungs & Thorax: Bilateral breath sounds clear to auscultation [] Abdomen: Bowel sounds normal, soft, no tenderness, no masses, no pulsatile masses. [] SEE ABOVE Skin: Warm, dry, no erythema, no rash. [] Back: No tenderness, no CVA tenderness. [] Extremities: No tenderness, no cyanosis, no clubbing, ROM intact, no edema. [] Patient's right upper extremity is swollen with palpable pulse distally. Dialysis fistula present with a thrill upon palpation. Neurologic: Alert and oriented X 3, normal motor function, normal sensory function, no focal deficits noted. [] Psychologic: Affect normal, judgement normal, mood normal. [] Current Patient Data Vital Signs Vital Signs Date Time Temp Pulse Resp B/P (MAP) Pulse Ox O2 Delivery O2 Flow Rate FiO2 02/10/17 18:51 77 185/147 02/10/17 18:44 16 100 Room Air 02/10/17 16:25 98.1 98.1 Lab Values Laboratory Tests Test 02/10/17 17:58 02/10/17 18:15 White Blood Count 10.4 x10^3/uL (4.0-11.0) Red Blood Count 3.44 x10^6/uL (3.50-5.40) L Hemoglobin 11.2 g/dL (12.0-15.5) L Hematocrit 34.6 % (36.0-47.0) L Mean Corpuscular Volume 101 fL (79-100) H Mean Corpuscular Hemoglobin 33 pg (25-35) Mean Corpuscular Hemoglobin Concent 32 g/dL (31-37) Red Cell Distribution Width 15.8 % (11.5-14.5) H Platelet Count 184 x10^3/uL (140-400) Neutrophils (%) (Auto) 85 % (31-73) H Lymphocytes (%) (Auto) 5 % (24-48) L Monocytes (%) (Auto) 9 % (0-9) Eosinophils (%) (Auto) 1 % (0-3) Basophils (%) (Auto) 1 % (0-3) Neutrophils # (Auto) 8.9 x10^3uL (1.8-7.7) H Lymphocytes # (Auto) 0.5 x10^3/uL (1.0-4.8) L Monocytes # (Auto) 1.0 x10^3/uL (0.0-1.1) Eosinophils # (Auto) 0.1 x10^3/uL (0.0-0.7) Basophils # (Auto) 0.1 x10^3/uL (0.0-0.2) Segmented Neutrophils % 78 % (35-66) H Band Neutrophils % 7 % (0-9) Lymphocytes % 7 % (24-48) L Monocytes % 8 % (0-10) Toxic Granulation Slight Platelet Estimate Adequate (ADEQUATE) Sodium Level 133 mmol/L (136-145) L Potassium Level 3.9 mmol/L (3.5-5.1) Chloride Level 98 mmol/L (98-107) Carbon Dioxide Level 23 mmol/L (21-32) Anion Gap 12 (6-14) Blood Urea Nitrogen 17 mg/dL (7-20) Creatinine 3.8 mg/dL (0.6-1.0) H Estimated GFR (Cockcroft-Gault) 13.8 Glucose Level 181 mg/dL (70-99) H Calcium Level 9.0 mg/dL (8.5-10.1) Total Bilirubin 0.6 mg/dL (0.2-1.0) Direct Bilirubin 0.2 mg/dL (0.0-0.2) Aspartate Amino Transferase (AST) 13 U/L (15-37) L Alanine Aminotransferase (ALT) 6 U/L (14-59) L Alkaline Phosphatase 110 U/L (46-116) Troponin I Quantitative 0.117 ng/mL (0.000-0.055) Total Protein 7.8 g/dL (6.4-8.2) Albumin 3.7 g/dL (3.4-5.0) Lipase 225 U/L (73-393) Urine Collection Type U cath Urine Color Dk yellow Urine Clarity Turbid Urine pH 6.0 Urine Specific [place] 1.015 Urine Protein >=300 mg/dL (NEG-TRACE) Urine Glucose (UA) Negative mg/dL (NEG) Urine Ketones (Stick) Trace mg/dL (NEG) Urine Blood Negative (NEG) Urine Nitrite Negative (NEG) Urine Bilirubin Small (NEG) Urine Urobilinogen Dipstick 0.2 mg/dL (0.2 mg/dL) Urine Leukocyte Esterase Large (NEG) Urine RBC 1-2 /HPF (0-2) Urine WBC Tntc /HPF (0-4) Urine Squamous Epithelial Cells Few /LPF Urine Transitional Epithelial Cells Occ /LPF Urine Bacteria Many /HPF (0-FEW) Urine Mucus Marked /LPF Laboratory Tests 02/10/17 17:58 Laboratory Tests 02/10/17 17:58 EKG EKG [] Radiology/Procedures Radiology/Procedures [] Course & Med Decision Making Course & Med Decision Making Pertinent Labs and Imaging studies reviewed. (See chart for details) []81-year-old female who presents to the ER today secondary to right upper extremity edema at the area of her dialysis shunt. Patient also complaining of abdominal pain. Patient had a CT scan of her abdomen which revealed a small amount of gas seen involving the left renal collecting system. There is also gas involving the urinary bladder. This may be iatrogenic if there is a recent history of bladder catheterization if not appropriate history the gas forming infection was possible. Patient had a UA obtained which showed numerous to count WBCs and bacteria. Given the abdominal pain, patient's age and comorbidities, the CT report, and the abnormal urinalysis the patient will be admitted for aggressive IV antibiotics. Patient is a patient of Dr. pickard and Dr. Shipman. Dragon Disclaimer Dragon Disclaimer This electronic medical record was generated, in whole or in part, using a voice recognition dictation system. Departure Departure Impression: Primary Impression: Swelling of right hand Additional Impressions: End stage renal disease Urinary tract infection Disposition: ADMITTED INPATIENT Admitting Physician: Morgan Contreras Condition: STABLE Referrals: NICHOLAS PICKARD MD (PCP) Problem Qualifiers NAA JAIN MD Feb 10, 2017 17:44 FRANCY RIVERS MD Feb 10, 2017 19:31
[2017-02-10] MEDS ORDERED: HYDROmorphone 2 MG/ML VIAL IV PRN (17:45)
[2017-02-10] MEDS ORDERED: ONDANSETRON PF 4 MG/2 ML VIAL. IV ONE (17:45)
[2017-02-10] MEDS ORDERED: LABETALOL 20 MG/4 ML DISP.SYRIN. IVP ONE (17:45)
[2017-02-10 18:11] LABS: BASO # 0.1 x10^3/uL (0.0-0.2); BASO % 1 % (0-3); EOS % 1 % (0-3); HEMATOCRIT 34.6 % (36.0-47.0); HEMOGLOBIN 11.2 g/dL (12.0-15.5); LYMPH # 0.5 x10^3/uL (1.0-4.8); LYMPH % 5 % (24-48); MEAN CORPUSCULAR HEMOGLOBIN 33 pg (25-35); MEAN CORPUSCULAR HGB CONC 32 g/dL (31-37); MEAN CORPUSCULAR VOLUME 101 fL (79-100); MONO % 9 % (0-9); NEUT % 85 % (31-73); PLATELET COUNT 184 x10^3/uL (140-400); RED BLOOD COUNT 3.44 x10^6/uL (3.50-5.40); RED CELL DISTRIBUTION WIDTH 15.8 % (11.5-14.5); WHITE BLOOD COUNT 10.4 x10^3/uL (4.0-11.0)
[2017-02-10 18:20] LABS: CREATININE 3.8 mg/dL (0.6-1.0); GFR 13.8; POTASSIUM 3.9 mmol/L (3.5-5.1)
[2017-02-10 18:24] LABS: BILIRUBIN,URINE SMALL (NEG); GLUCOSE,URINE NEGATIVE (NEG); NITRITE,URINE NEGATIVE (NEG); PROTEIN,URINE >=300 mg/dL (NEG-TRACE); UROBILINOGEN,URINE 0.2 mg/dL (0.2 mg/dL)
[2017-02-10 18:26] LABS: DIRECT BILIRUBIN 0.2 mg/dL (0.0-0.2); TOTAL BILIRUBIN 0.6 mg/dL (0.2-1.0); TOTAL PROTEIN 7.8 g/dL (6.4-8.2)
[2017-02-10 18:35] LABS: ALBUMIN 3.7 g/dL (3.4-5.0)
[2017-02-10 18:36] LABS: BACTERIA,URINE MANY /HPF (0-FEW); SQUAMOUS EPITHELIAL CELL,UR FEW /LPF; WBC,URINE TNTC /HPF (0-4)
--- NOTE | 2017-02-10 18:36 | RAD ---
Right upper extremity venous duplex study 02/10/2017 CLINICAL HISTORY: Right arm swelling. TECHNIQUE: Using a combination real-time ultrasound imaging and color-flow and pulse Doppler imaging techniques along with graded compression and augmentation, duplex evaluation of the major venous structures of the right upper extremity was performed. Multiple images were obtained. FINDINGS: There is no sonographic evidence of thrombosis involving the visualized venous structures of the right upper extremity. A patent dialysis graft is seen in the right forearm. IMPRESSION: There is no sonographic evidence of venous thrombosis involving the visualized venous structures of the right upper extremity. Electronically signed by: Marquis Flanagan MD (02/10/2017 6:32 PM) [facility]
[2017-02-10 19:00] LABS: PLT ESTIMATE ADEQUATE (ADEQUATE); TOXIC GRANULATION SLIGHT
[2017-02-10] MEDS ORDERED: PIP/TAZO PER PHARMACY MC PRN (19:15)
[2017-02-10] MEDS ORDERED: PIPERACILLIN/TAZOBACTAM 2.25 GM in IV NORMAL SALINE 50ML 50 ML IV ONE (19:30)
[2017-02-10] MEDS ORDERED: ONDANSETRON PF 4 MG/2 ML VIAL. IV PRN (19:45)
[2017-02-10] MEDS ORDERED: ACETAMINOPHEN 325 MG TABLET. PO PRN (19:45)
[2017-02-10 21:00] VITALS: BP 165/75
[2017-02-10 23:48] VITALS: BP 170/78
[2017-02-11 03:40] VITALS: BP 154/66
[2017-02-11 05:20] LABS: BASO % 0 % (0-3); EOS % 1 % (0-3); HEMATOCRIT 33.4 % (36.0-47.0); HEMOGLOBIN 11.1 g/dL (12.0-15.5); LYMPH # 0.6 x10^3/uL (1.0-4.8); LYMPH % 6 % (24-48); MEAN CORPUSCULAR HEMOGLOBIN 33 pg (25-35); MEAN CORPUSCULAR HGB CONC 33 g/dL (31-37); MEAN CORPUSCULAR VOLUME 99 fL (79-100); MONO % 10 % (0-9); NEUT % 82 % (31-73); PLATELET COUNT 194 x10^3/uL (140-400); RED BLOOD COUNT 3.36 x10^6/uL (3.50-5.40); RED CELL DISTRIBUTION WIDTH 15.7 % (11.5-14.5)
[2017-02-11] MEDS ORDERED: PIPERACILLIN/TAZOBACTAM 2.25 GM in IV NORMAL SALINE 50ML 50 ML IV SCH (06:00)
[2017-02-11 07:00] VITALS: BP 170/76
[2017-02-11] MEDS ORDERED: oxyCODONE/APAP 5/325 1 TAB TABLET PO PRN (10:30)
[2017-02-11] MEDS ORDERED: traZODone 50 MG TABLET. PO PRN (10:30)
--- NOTE | 2017-02-11 10:41 | PDOC ---
Provider Note Provider Note [id number] XIAO MCINTYRE MD Feb 11, 2017 10:41
--- NOTE | 2017-02-11 10:41 | RAD ---
AP portable chest radiograph 02/10/2017 Clinical History: Chest pain and swelling. An AP portable erect digital radiograph of the chest was obtained. Comparison study is dated 10/02/2016. A stent overlies the expected location of the right brachiocephalic vein. The cardiac silhouette is mildly enlarged. The thoracic aorta is tortuous. Atherosclerotic calcification of the thoracic aorta is seen. No acute pulmonary infiltrate is seen. No pleural effusion or pneumothorax is noted. Degenerative changes are seen involving the thoracic spine and both shoulders. Impression: Mild cardiomegaly. No acute pulmonary infiltrate is seen.
[2017-02-11 11:00] VITALS: BP 173/77
[2017-02-11] MEDS ORDERED: INSULIN DETEMIR 300 UNITS/3 ML INSULN.PEN. SQ SCH (11:00)
--- NOTE | 2017-02-11 12:14 | EKG ---
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
--- NOTE | 2017-02-11 12:23 | PDOC2 ---
CONSULT Date of Consult Date of Consult DATE: 02/11/17 TIME: 12:23 Reason for Consult Reason for Consult: Slightly elevated troponin level Referring Physician Referring Physician: Dr. Dougherty Identification/Chief Complaint Chief Complaint Right arm swelling and pain Problems: Source Source: Chart review, Patient History of Present Illness Reason for Visit: 81-year-old female with history of end-stage renal disease on hemodialysis presented with right upper extremity swelling and pain and is presently being worked up by nephrology for central venous stenosis. Cardiology has been consulted for slightly elevated troponin level. Patient denied any chest pain, orthopnea/PND, palpitations or syncope. She also denied any previous history of coronary artery disease. Past Medical History Cardiovascular: CHF, HTN CENTRAL NERVOUS SYSTEM: TIA GI: GERD Heme/Onc: Cancer Hepatobiliary: No pertinent hx Psych: Depression Musculoskeletal: Osteoarthritis Rheumatologic: No pertinent hx Infectious disease: No pertinent hx Renal/: Chronic renal failure Endocrine: Diabetes Past Surgical History Past Surgical History: Appendectomy, Cholecystectomy, Cataract Removal, Mastectomy, Hysterectomy, Other Family History Family History: No Significant, Hypertension Social History ALCOHOL: none Drugs: None Lives: Alone Current Problem List Problem List Problems Medical Problems: (1) End stage renal disease Status: Acute (2) Swelling of right hand Status: Acute (3) Urinary tract infection Status: Acute Current Medications Current Medications Current Medications Hydromorphone HCl (Dilaudid) 0.5 mg PRN Q30MIN PRN IV SEVERE PAIN Last administered on 02/10/17 18:44; Start 02/10/17 at 17:45 Ondansetron HCl (Zofran) 4 mg 1X ONCE IV Last administered on 02/10/17 18:44 ; Start 02/10/17 at 17:45; Stop 02/10/17 at 17:46; Status DC Labetalol HCl (Normodyne) 20 mg 1X ONCE IVP Last administered on 02/10/17 18: 51; Start 02/10/17 at 17:45; Stop 02/10/17 at 17:46; Status DC Piperacillin Sod/ Tazobactam Sod (Zosyn Per Pharmacy) 1 each PRN DAILY PRN MC SEE COMMENTS; Start 02/10/17 at 19:15 Piperacillin Sod/ Tazobactam Sod 2.25 gm/Sodium Chloride 50 ml @ 100 mls/hr 1X ONCE IV Last administered on 9/23/17at 19:34; Start 02/10/17 at 19:30; Stop 02/10/17 at 19:59; Status DC Ondansetron HCl (Zofran) 4 mg PRN Q8HRS PRN IV NAUSEA/VOMITING; Start 02/10/17 at 19:45; Stop 02/11/17 at 19:44 Acetaminophen (Tylenol) 650 mg PRN Q4HRS PRN PO FEVER; Start 02/10/17 at 19:45 ; Stop 02/11/17 at 19:44 Piperacillin Sod/ Tazobactam Sod 2.25 gm/Sodium Chloride 50 ml @ 100 mls/hr Q8HRS IV Last administered on 02/11/17t 06:42; Start 02/11/17 at 06:00; Stop at 10:43; Status DC Amlodipine Besylate (Norvasc) 10 mg DAILY PO ; Start 02/11/17 at 11:00 Aspirin (Children'S Aspirin) 81 mg DAILY PO ; Start 02/11/17 at 11:00 Atorvastatin Calcium (Lipitor) 20 mg HS PO ; Start 02/11/17 at 21:00 Carvedilol (Coreg) 3.125 mg BIDWMEALS PO ; Start 02/11/17 at 11:00 Clopidogrel Bisulfate (Plavix) 75 mg DAILY PO ; Start 02/11/17 at 11:00 Vitamin B Complex/ Vitamin C (Johana-Manuel) 1 tab DAILY PO ; Start 02/11/17 at 11: 00 Furosemide (Lasix) 40 mg DAILY PO ; Start 02/11/17 at 11:00 Levothyroxine Sodium (Synthroid) 75 mcg DAILYAC PO ; Start 02/11/17 at 11:00 Oxycodone/ Acetaminophen (Percocet 5/325) 1 tab PRN Q6HRS PRN PO MODERATE PAIN ; Start 02/11/17 at 10:30 Sertraline HCl (Zoloft) 25 mg DAILY PO ; Start 02/11/17 at 11:00 Sevelamer Carbonate (Renvela) 800 mg TIDAC PO ; Start 02/11/17 at 11:30 Tramadol HCl (Ultram) 50 mg PRN Q6HRS PRN PO PAIN; Start 02/11/17 at 10:30 Trazodone HCl (Desyrel) 50 mg PRN QHS PRN PO INSOMNIA; Start 02/11/17 at 10:30 Pantoprazole Sodium (Protonix) 40 mg DAILYAC PO ; Start 02/11/17 at 11:30 Hydralazine HCl (Apresoline) 100 mg TID PO ; Start 02/11/17 at 14:00 Insulin Detemir (Levemir) 30 units [id number] SQ ; Start 02/11/17 at 11:00; Stop 02/11/17 at 11:00; Status DC Losartan Potassium (Cozaar) 100 mg DAILY PO ; Start 02/11/17 at 11:00 Piperacillin Sod/ Tazobactam Sod 2.25 gm/Sodium Chloride 50 ml @ 100 mls/hr [id number] IV ; Start 02/11/17 at 18:00 Insulin Detemir (Levemir) 20 units DAILYWBKFT SQ ; Start 02/12/17 at 08:00 Active Scripts Active Tramadol Hcl 50 Mg Tablet 1 Tab PO PRN Q6HRS PRN Trazodone Hcl 50 Mg Tablet 50 Mg PO PRN QHS PRN 30 Days Sertraline Hcl 25 Mg Tablet 25 Mg PO DAILY 30 Days Carvedilol 3.125 Mg Tablet 3.125 Mg PO BIDWMEALS 30 Days Percocet 5-325 Mg Tablet (Oxycodone/Acetaminophen) 1 Each Tablet 1-2 Tab PO Q4- 6HRS Reported Lipitor (Atorvastatin Calcium) 20 Mg Tablet 20 Mg PO HS Amlodipine Besylate 10 Mg Tablet 10 Mg PO DAILY Plavix (Clopidogrel Bisulfate) 75 Mg Tablet 75 Mg PO DAILY Aspirin 81 Mg Tab.chew 81 Mg PO DAILY Synthroid (Levothyroxine Sodium) 75 Mcg Tablet 75 Mcg PO DAILYAC Cozaar (Losartan Potassium) 100 Mg Tablet 100 Mg PO DAILY Renvela (Sevelamer Carbonate) 800 Mg Tablet 800 Mg PO TIDAC Nephro-Manuel Tablet (Folic Acid/Vitamin B Comp W-C) 0.8 Mg Tablet 0.8 Mg PO DAILY Esomeprazole Capsule (Esomeprazole Strontium) 40 Mg Capsule.dr 40 Mg PO DAILYAC Hydralazine Hcl 100 Mg Tablet 100 Mg PO TID Lasix (Furosemide) 40 Mg Tablet 40 Mg PO DAILY Lantus Solostar (Insulin Glargine,Hum.rec.anlog) 100 Unit/1 Ml Insuln.pen 30 Unit SQ DAILYWBKFT Allergies Allergies: Coded Allergies: No Known Drug Allergies (Unverified , 04/13/14) ROS PSYCHOLOGICAL ROS: No: Hallucinations Eyes: No Loss of vision HEENT: No: Epistaxis Respiratory: No: Hemoptysis, Shortness of breath Gastrointestinal: No Vomiting, No Diarrhea Musculoskeletal: Yes Other (right upper extremity swelling and pain) Neurological: No Confusion, No Seizures Skin: No Rash Physical Exam General: Alert, Oriented X3 HEENT: Atraumatic, PERRLA Lungs: Clear to auscultation Heart: Regular rate Abdomen: Soft, No tenderness Extremities: Other (mild RUE edema) Psych/Mental Status: Mood NL Vitals VITALS Vital Signs Date Time Temp Pulse Resp B/P (MAP) Pulse Ox O2 Delivery O2 Flow Rate FiO2 02/11/17 11:00 98.4 76 20 173/77 (109) 97 Room Air 98.4 Labs Labs Laboratory Tests Test 02/10/17 17:58 02/10/17 18:15 02/10/17 22:00 02/11/17 04:00 White Blood Count 10.4 x10^3/uL (4.0-11.0) 10.0 x10^3/uL (4.0-11.0) Red Blood Count 3.44 x10^6/uL (3.50-5.40) 3.36 x10^6/uL (3.50-5.40) Hemoglobin 11.2 g/dL (12.0-15.5) 11.1 g/dL (12.0-15.5) Hematocrit 34.6 % (36.0-47.0) 33.4 % (36.0-47.0) Mean Corpuscular Volume 101 fL (79-100) 99 fL (79-100) Mean Corpuscular Hemoglobin 33 pg (25-35) 33 pg (25-35) Mean Corpuscular Hemoglobin Concent 32 g/dL (31-37) 33 g/dL (31-37) Red Cell Distribution Width 15.8 % (11.5-14.5) 15.7 % (11.5-14.5) Platelet Count 184 x10^3/uL (140-400) 194 x10^3/uL (140-400) Neutrophils (%) (Auto) 85 % (31-73) 82 % (31-73) Lymphocytes (%) (Auto) 5 % (24-48) 6 % (24-48) Monocytes (%) (Auto) 9 % (0-9) 10 % (0-9) Eosinophils (%) (Auto) 1 % (0-3) 1 % (0-3) Basophils (%) (Auto) 1 % (0-3) 0 % (0-3) Neutrophils # (Auto) 8.9 x10^3uL (1.8-7.7) 8.2 x10^3uL (1.8-7.7) Lymphocytes # (Auto) 0.5 x10^3/uL (1.0-4.8) 0.6 x10^3/uL (1.0-4.8) Monocytes # (Auto) 1.0 x10^3/uL (0.0-1.1) 1.0 x10^3/uL (0.0-1.1) Eosinophils # (Auto) 0.1 x10^3/uL (0.0-0.7) 0.1 x10^3/uL (0.0-0.7) Basophils # (Auto) 0.1 x10^3/uL (0.0-0.2) 0.0 x10^3/uL (0.0-0.2) Segmented Neutrophils % 78 % (35-66) Band Neutrophils % 7 % (0-9) Lymphocytes % 7 % (24-48) Monocytes % 8 % (0-10) Toxic Granulation Slight Platelet Estimate Adequate (ADEQUATE) Sodium Level 133 mmol/L (136-145) Potassium Level 3.9 mmol/L (3.5-5.1) Chloride Level 98 mmol/L (98-107) Carbon Dioxide Level 23 mmol/L (21-32) Anion Gap 12 (6-14) Blood Urea Nitrogen 17 mg/dL (7-20) Creatinine 3.8 mg/dL (0.6-1.0) Estimated GFR (Cockcroft-Gault) 13.8 Glucose Level 181 mg/dL (70-99) Calcium Level 9.0 mg/dL (8.5-10.1) Total Bilirubin 0.6 mg/dL (0.2-1.0) Direct Bilirubin 0.2 mg/dL (0.0-0.2) Aspartate Amino Transf (AST/SGOT) 13 U/L (15-37) Alanine Aminotransferase (ALT/SGPT) 6 U/L (14-59) Alkaline Phosphatase 110 U/L (46-116) Troponin I Quantitative 0.117 ng/mL (0.000-0.055) 0.118 ng/mL (0.000-0.055) 0.150 ng/mL (0.000-0.055) Total Protein 7.8 g/dL (6.4-8.2) Albumin 3.7 g/dL (3.4-5.0) Lipase 225 U/L (73-393) Urine Collection Type U cath Urine Color Dk yellow Urine Clarity Turbid Urine pH 6.0 Urine Specific [place] 1.015 Urine Protein >=300 mg/dL (NEG-TRACE) Urine Glucose (UA) Negative mg/dL (NEG) Urine Ketones (Stick) Trace mg/dL (NEG) Urine Blood Negative (NEG) Urine Nitrite Negative (NEG) Urine Bilirubin Small (NEG) Urine Urobilinogen Dipstick 0.2 mg/dL (0.2 mg/dL) Urine Leukocyte Esterase Large (NEG) Urine RBC 1-2 /HPF (0-2) Urine WBC Tntc /HPF (0-4) Urine Squamous Epithelial Cells Few /LPF Urine Transitional Epithelial Cells Occ /LPF Urine Bacteria Many /HPF (0-FEW) Urine Mucus Marked /LPF Lactic Acid Level 1.5 mmol/L (0.4-2.0) Test 02/11/17 07:16 02/11/17 11:47 Glucose (Fingerstick) 110 mg/dL (70-99) 159 mg/dL (70-99) Laboratory Tests Test 02/10/17 17:58 02/10/17 18:15 02/10/17 22:00 02/11/17 04:00 White Blood Count 10.4 x10^3/uL (4.0-11.0) 10.0 x10^3/uL (4.0-11.0) Red Blood Count 3.44 x10^6/uL (3.50-5.40) 3.36 x10^6/uL (3.50-5.40) Hemoglobin 11.2 g/dL (12.0-15.5) 11.1 g/dL (12.0-15.5) Hematocrit 34.6 % (36.0-47.0) 33.4 % (36.0-47.0) Mean Corpuscular Volume 101 fL (79-100) 99 fL (79-100) Mean Corpuscular Hemoglobin 33 pg (25-35) 33 pg (25-35) Mean Corpuscular Hemoglobin Concent 32 g/dL (31-37) 33 g/dL (31-37) Red Cell Distribution Width 15.8 % (11.5-14.5) 15.7 % (11.5-14.5) Platelet Count 184 x10^3/uL (140-400) 194 x10^3/uL (140-400) Neutrophils (%) (Auto) 85 % (31-73) 82 % (31-73) Lymphocytes (%) (Auto) 5 % (24-48) 6 % (24-48) Monocytes (%) (Auto) 9 % (0-9) 10 % (0-9) Eosinophils (%) (Auto) 1 % (0-3) 1 % (0-3) Basophils (%) (Auto) 1 % (0-3) 0 % (0-3) Neutrophils # (Auto) 8.9 x10^3uL (1.8-7.7) 8.2 x10^3uL (1.8-7.7) Lymphocytes # (Auto) 0.5 x10^3/uL (1.0-4.8) 0.6 x10^3/uL (1.0-4.8) Monocytes # (Auto) 1.0 x10^3/uL (0.0-1.1) 1.0 x10^3/uL (0.0-1.1) Eosinophils # (Auto) 0.1 x10^3/uL (0.0-0.7) 0.1 x10^3/uL (0.0-0.7) Basophils # (Auto) 0.1 x10^3/uL (0.0-0.2) 0.0 x10^3/uL (0.0-0.2) Segmented Neutrophils % 78 % (35-66) Band Neutrophils % 7 % (0-9) Lymphocytes % 7 % (24-48) Monocytes % 8 % (0-10) Toxic Granulation Slight Platelet Estimate Adequate (ADEQUATE) Sodium Level 133 mmol/L (136-145) Potassium Level 3.9 mmol/L (3.5-5.1) Chloride Level 98 mmol/L (98-107) Carbon Dioxide Level 23 mmol/L (21-32) Anion Gap 12 (6-14) Blood Urea Nitrogen 17 mg/dL (7-20) Creatinine 3.8 mg/dL (0.6-1.0) Estimated GFR (Cockcroft-Gault) 13.8 Glucose Level 181 mg/dL (70-99) Calcium Level 9.0 mg/dL (8.5-10.1) Total Bilirubin 0.6 mg/dL (0.2-1.0) Direct Bilirubin 0.2 mg/dL (0.0-0.2) Aspartate Amino Transf (AST/SGOT) 13 U/L (15-37) Alanine Aminotransferase (ALT/SGPT) 6 U/L (14-59) Alkaline Phosphatase 110 U/L (46-116) Troponin I Quantitative 0.117 ng/mL (0.000-0.055) 0.118 ng/mL (0.000-0.055) 0.150 ng/mL (0.000-0.055) Total Protein 7.8 g/dL (6.4-8.2) Albumin 3.7 g/dL (3.4-5.0) Lipase 225 U/L (73-393) Urine Collection Type U cath Urine Color Dk yellow Urine Clarity Turbid Urine pH 6.0 Urine Specific [place] 1.015 Urine Protein >=300 mg/dL (NEG-TRACE) Urine Glucose (UA) Negative mg/dL (NEG) Urine Ketones (Stick) Trace mg/dL (NEG) Urine Blood Negative (NEG) Urine Nitrite Negative (NEG) Urine Bilirubin Small (NEG) Urine Urobilinogen Dipstick 0.2 mg/dL (0.2 mg/dL) Urine Leukocyte Esterase Large (NEG) Urine RBC 1-2 /HPF (0-2) Urine WBC Tntc /HPF (0-4) Urine Squamous Epithelial Cells Few /LPF Urine Transitional Epithelial Cells Occ /LPF Urine Bacteria Many /HPF (0-FEW) Urine Mucus Marked /LPF Lactic Acid Level 1.5 mmol/L (0.4-2.0) Test 02/11/17 07:16 02/11/17 11:47 Glucose (Fingerstick) 110 mg/dL (70-99) 159 mg/dL (70-99) Assessment/Plan Assessment/Plan 1. Slightly elevated troponin level most probably secondary to demand ischemia from combination of uncontrolled hypertension and renal insufficiency. Patient denied any chest pain and EKG without acute changes. Doubt ACS. Lexiscan nuclear stress test in November 2015 did not show any significant ischemia. 2-D echo at that time showed LVEF 45-50% with severe pulmonary hypertension. We will repeat 2-D echocardiogram to rule out any wall motion abnormalities. 2. Accelerated hypertension: Resume home medications and titrate for better control 3. UTI/sepsis: Continue intravenous antibiotics 4. Right upper extremity edema and pain: Plan for fistulogram to rule out central venous stenosis per nephrology 5. Hyperlipidemia: Continue statin therapy 6. Hypothyroidism: Continue levothyroxine 7. Diabetes mellitus type 2: Treated per IM 8. End-stage renal disease: Hemodialysis per nephrology team Thank you for your consultation AGA LIU MD Feb 11, 2017 12:23
[2017-02-11] MEDS: SERTRALINE 25 MG TABLET. PO SCH (13:25)
[2017-02-11] MEDS: ASPIRIN CHEWABLE 81 MG TABLET. PO SCH (13:26)
[2017-02-11] MEDS: CLOPIDOGREL BISULFATE 75 MG TABLET PO SCH (13:26)
[2017-02-11] MEDS: LOSARTAN POTASSIUM 50 MG TABLET. PO SCH (13:26)
[2017-02-11] MEDS: SEVELAMER CARBONATE 800 MG TABLET. PO SCH ×2 (13:26→17:16)
[2017-02-11] MEDS: FOLIC/VIT B COMP W-C (RENAL) TABLET. PO SCH (13:26)
[2017-02-11] MEDS: PANTOPRAZOLE 40 MG TABLET.DR. PO SCH (13:26)
[2017-02-11] MEDS: CARVEDILOL 3.125 MG TABLET. PO SCH ×2 (13:26→17:16)
[2017-02-11] MEDS: LEVOTHYROXINE 75 MCG TABLET PO SCH (13:27)
[2017-02-11] MEDS: FUROSEMIDE 40 MG TABLET. PO SCH (13:27)
[2017-02-11] MEDS: amLODIPine BESYLATE 10 MG TABLET PO SCH (13:31)
--- NOTE | 2017-02-11 14:42 | PDOC2 ---
CONSULT Date of Consult Date of Consult DATE: 02/11/17 TIME: 14:36 Reason for Consult Reason for Consult: ESRD Referring Physician Referring Physician: CM Identification/Chief Complaint Chief Complaint RIGHT ARM EDEMA AND PAIN Problems: Source Source: Chart review, Patient History of Present Illness Reason for Visit: THIS IS A VERY PLEASANT 81 YR OLD ADMITTED WITH CHIEF COMPLAINT OF RIGHT ARM EDEMA HER RIGHT ARM ALSO HURTS AND BUT SHE HAS NOT NOTED ANY FEVER OR WARMTH OR REDNESS. SHE HAS AN AV FISTULA IN THE RIGHT ARM AN ACCESS FOR HER DIALYSIS WHICH SHE DOES OP ON TTS. LABS ARE C/W ESRD. SHE IS ALSO NOTED TO HAVE AN UTI AND INCREASED TROPONIN LEVELS. HE LAST OP HD WAS YESTERDAY. Past Medical History Cardiovascular: CHF, HTN CENTRAL NERVOUS SYSTEM: TIA GI: GERD Heme/Onc: Anemia NOS, Cancer Hepatobiliary: No pertinent hx Psych: Depression Musculoskeletal: Osteoarthritis Rheumatologic: No pertinent hx Infectious disease: No pertinent hx Renal/: Chronic renal failure Endocrine: Diabetes, Hyperparathyroidism Past Surgical History Past Surgical History: Appendectomy, Cholecystectomy, Cataract Removal, Mastectomy, Hysterectomy, Other Family History Family History: No Significant, Hypertension Social History ALCOHOL: none Drugs: None Lives: Alone Current Problem List Problem List Problems Medical Problems: (1) End stage renal disease Status: Acute (2) Swelling of right hand Status: Acute (3) Urinary tract infection Status: Acute Current Medications Current Medications Current Medications Hydromorphone HCl (Dilaudid) 0.5 mg PRN Q30MIN PRN IV SEVERE PAIN Last administered on 02/10/17 18:44; Start 02/10/17 at 17:45 Ondansetron HCl (Zofran) 4 mg 1X ONCE IV Last administered on 02/10/17 18:44 ; Start 02/10/17 at 17:45; Stop 02/10/17 at 17:46; Status DC Labetalol HCl (Normodyne) 20 mg 1X ONCE IVP Last administered on 02/10/17 18: 51; Start 02/10/17 at 17:45; Stop 02/10/17 at 17:46; Status DC Piperacillin Sod/ Tazobactam Sod (Zosyn Per Pharmacy) 1 each PRN DAILY PRN MC SEE COMMENTS; Start 02/10/17 at 19:15 Piperacillin Sod/ Tazobactam Sod 2.25 gm/Sodium Chloride 50 ml @ 100 mls/hr 1X ONCE IV Last administered on 02/10/17 19:34; Start 02/10/17 at 19:30; Stop 02/10/17 at 19:59; Status DC Ondansetron HCl (Zofran) 4 mg PRN Q8HRS PRN IV NAUSEA/VOMITING Last administered on 02/11/17 13:23; Start 02/10/17 at 19:45; Stop 02/11/17 at 19:44 Acetaminophen (Tylenol) 650 mg PRN Q4HRS PRN PO FEVER; Start 02/10/17 at 19:45 ; Stop 02/11/17 at 19:44 Piperacillin Sod/ Tazobactam Sod 2.25 gm/Sodium Chloride 50 ml @ 100 mls/hr Q8HRS IV Last administered on 02/11/17 06:42; Start 02/11/17 at 06:00; Stop at 10:43; Status DC Amlodipine Besylate (Norvasc) 10 mg DAILY PO Last administered on 02/11/17 13: 31; Start 02/11/17 at 11:00 Aspirin (Children'S Aspirin) 81 mg DAILY PO Last administered on 02/11/17 13: 26; Start 02/11/17 at 11:00 Atorvastatin Calcium (Lipitor) 20 mg HS PO ; Start 02/11/17 at 21:00 Carvedilol (Coreg) 3.125 mg BIDWMEALS PO Last administered on 02/11/17 13:26; Start 02/11/17 at 11:00 Clopidogrel Bisulfate (Plavix) 75 mg DAILY PO Last administered on 02/11/17 13 :26; Start 02/11/17 at 11:00 Vitamin B Complex/ Vitamin C (Johana-Manuel) 1 tab DAILY PO Last administered on 13:26; Start 02/11/17 at 11:00 Furosemide (Lasix) 40 mg DAILY PO Last administered on 02/11/17 13:27; Start 02/11/17 at 11:00 Levothyroxine Sodium (Synthroid) 75 mcg DAILYAC PO Last administered on 13:27; Start 02/11/17 at 11:00 Oxycodone/ Acetaminophen (Percocet 5/325) 1 tab PRN Q6HRS PRN PO MODERATE PAIN ; Start 02/11/17 at 10:30 Sertraline HCl (Zoloft) 25 mg DAILY PO Last administered on 02/11/17 13:25; Start 02/11/17 at 11:00 Sevelamer Carbonate (Renvela) 800 mg TIDAC PO Last administered on 02/11/17 13 :26; Start 02/11/17 at 11:30 Tramadol HCl (Ultram) 50 mg PRN Q6HRS PRN PO PAIN; Start 02/11/17 at 10:30 Trazodone HCl (Desyrel) 50 mg PRN QHS PRN PO INSOMNIA; Start 02/11/17 at 10:30 Pantoprazole Sodium (Protonix) 40 mg DAILYAC PO Last administered on 02/11/17 13:26; Start 02/11/17 at 11:30 Hydralazine HCl (Apresoline) 100 mg TID PO Last administered on 02/11/17 13:33 ; Start 02/11/17 at 14:00 Insulin Detemir (Levemir) 30 units DAILYWBKFT SQ ; Start 02/11/17 at 11:00; Stop 02/11/17 at 11:00; Status DC Losartan Potassium (Cozaar) 100 mg DAILY PO Last administered on 02/11/17 13: 26; Start 02/11/17 at 11:00 Piperacillin Sod/ Tazobactam Sod 2.25 gm/Sodium Chloride 50 ml @ 100 mls/hr [id number] IV ; Start 02/11/17 at 18:00 Insulin Detemir (Levemir) 20 units DAILYWBKFT SQ ; Start 02/12/17 at 08:00 Active Scripts Active Tramadol Hcl 50 Mg Tablet 1 Tab PO PRN Q6HRS PRN Trazodone Hcl 50 Mg Tablet 50 Mg PO PRN QHS PRN 30 Days Sertraline Hcl 25 Mg Tablet 25 Mg PO DAILY 30 Days Carvedilol 3.125 Mg Tablet 3.125 Mg PO BIDWMEALS 30 Days Percocet 5-325 Mg Tablet (Oxycodone/Acetaminophen) 1 Each Tablet 1-2 Tab PO Q4- 6HRS Reported Lipitor (Atorvastatin Calcium) 20 Mg Tablet 20 Mg PO HS Amlodipine Besylate 10 Mg Tablet 10 Mg PO DAILY Plavix (Clopidogrel Bisulfate) 75 Mg Tablet 75 Mg PO DAILY Aspirin 81 Mg Tab.chew 81 Mg PO DAILY Synthroid (Levothyroxine Sodium) 75 Mcg Tablet 75 Mcg PO DAILYAC Cozaar (Losartan Potassium) 100 Mg Tablet 100 Mg PO DAILY Renvela (Sevelamer Carbonate) 800 Mg Tablet 800 Mg PO TIDAC Nephro-Manuel Tablet (Folic Acid/Vitamin B Comp W-C) 0.8 Mg Tablet 0.8 Mg PO DAILY Esomeprazole Capsule (Esomeprazole Strontium) 40 Mg Capsule.dr 40 Mg PO DAILYAC Hydralazine Hcl 100 Mg Tablet 100 Mg PO TID Lasix (Furosemide) 40 Mg Tablet 40 Mg PO DAILY Lantus Solostar (Insulin Glargine,Hum.rec.anlog) 100 Unit/1 Ml Insuln.pen 30 Unit SQ DAILYWBKFT Allergies Allergies: Coded Allergies: No Known Drug Allergies (Unverified , 04/13/14) ROS General: YES: Fatigue PSYCHOLOGICAL ROS: YES: Anxiety Eyes: Yes Decreased vision HEENT: YES: Heacaches Respiratory: YES: Cough Cardiovascular: yes Edema Gastrointestinal: Yes Constipation Genitourinary: YES Other (ANURIA) Musculoskeletal: Yes Muscular Weakness, Yes Other (RIGHT ARM SWELLING) Skin: Yes Dry Skin Physical Exam General: Alert, Oriented X3, Cooperative, No acute distress HEENT: Atraumatic, PERRLA, EOMI, Mucous membr. moist/pink Lungs: Clear to auscultation Heart: Regular rate, Normal S1, Normal S2 Abdomen: Normal bowel sounds, Soft, No tenderness Extremities: No clubbing, Other (RIGHT ARM EDEMA. BB FISTULA HAS A GOOD THRILL AND BRUIT BUT PULSATILE IN CHARACTER. NO WARMTH OR ERYTHEMA NOTED) Skin: No rashes, No significant lesion Neuro: Normal speech Psych/Mental Status: Mental status NL, Mood NL MUSCULOSKELETAL: No deformity Vitals VITALS Vital Signs Date Time Temp Pulse Resp B/P (MAP) Pulse Ox O2 Delivery O2 Flow Rate FiO2 02/11/17 13:33 76 173/77 02/11/17 11:00 98.4 20 97 Room Air 98.4 Labs Labs Laboratory Tests Test 02/10/17 17:58 02/10/17 18:15 02/10/17 22:00 02/11/17 04:00 White Blood Count 10.4 x10^3/uL (4.0-11.0) 10.0 x10^3/uL (4.0-11.0) Red Blood Count 3.44 x10^6/uL (3.50-5.40) 3.36 x10^6/uL (3.50-5.40) Hemoglobin 11.2 g/dL (12.0-15.5) 11.1 g/dL (12.0-15.5) Hematocrit 34.6 % (36.0-47.0) 33.4 % (36.0-47.0) Mean Corpuscular Volume 101 fL (79-100) 99 fL (79-100) Mean Corpuscular Hemoglobin 33 pg (25-35) 33 pg (25-35) Mean Corpuscular Hemoglobin Concent 32 g/dL (31-37) 33 g/dL (31-37) Red Cell Distribution Width 15.8 % (11.5-14.5) 15.7 % (11.5-14.5) Platelet Count 184 x10^3/uL (140-400) 194 x10^3/uL (140-400) Neutrophils (%) (Auto) 85 % (31-73) 82 % (31-73) Lymphocytes (%) (Auto) 5 % (24-48) 6 % (24-48) Monocytes (%) (Auto) 9 % (0-9) 10 % (0-9) Eosinophils (%) (Auto) 1 % (0-3) 1 % (0-3) Basophils (%) (Auto) 1 % (0-3) 0 % (0-3) Neutrophils # (Auto) 8.9 x10^3uL (1.8-7.7) 8.2 x10^3uL (1.8-7.7) Lymphocytes # (Auto) 0.5 x10^3/uL (1.0-4.8) 0.6 x10^3/uL (1.0-4.8) Monocytes # (Auto) 1.0 x10^3/uL (0.0-1.1) 1.0 x10^3/uL (0.0-1.1) Eosinophils # (Auto) 0.1 x10^3/uL (0.0-0.7) 0.1 x10^3/uL (0.0-0.7) Basophils # (Auto) 0.1 x10^3/uL (0.0-0.2) 0.0 x10^3/uL (0.0-0.2) Segmented Neutrophils % 78 % (35-66) Band Neutrophils % 7 % (0-9) Lymphocytes % 7 % (24-48) Monocytes % 8 % (0-10) Toxic Granulation Slight Platelet Estimate Adequate (ADEQUATE) Sodium Level 133 mmol/L (136-145) Potassium Level 3.9 mmol/L (3.5-5.1) Chloride Level 98 mmol/L (98-107) Carbon Dioxide Level 23 mmol/L (21-32) Anion Gap 12 (6-14) Blood Urea Nitrogen 17 mg/dL (7-20) Creatinine 3.8 mg/dL (0.6-1.0) Estimated GFR (Cockcroft-Gault) 13.8 Glucose Level 181 mg/dL (70-99) Calcium Level 9.0 mg/dL (8.5-10.1) Total Bilirubin 0.6 mg/dL (0.2-1.0) Direct Bilirubin 0.2 mg/dL (0.0-0.2) Aspartate Amino Transf (AST/SGOT) 13 U/L (15-37) Alanine Aminotransferase (ALT/SGPT) 6 U/L (14-59) Alkaline Phosphatase 110 U/L (46-116) Troponin I Quantitative 0.117 ng/mL (0.000-0.055) 0.118 ng/mL (0.000-0.055) 0.150 ng/mL (0.000-0.055) Total Protein 7.8 g/dL (6.4-8.2) Albumin 3.7 g/dL (3.4-5.0) Lipase 225 U/L (73-393) Urine Collection Type U cath Urine Color Dk yellow Urine Clarity Turbid Urine pH 6.0 Urine Specific [place] 1.015 Urine Protein >=300 mg/dL (NEG-TRACE) Urine Glucose (UA) Negative mg/dL (NEG) Urine Ketones (Stick) Trace mg/dL (NEG) Urine Blood Negative (NEG) Urine Nitrite Negative (NEG) Urine Bilirubin Small (NEG) Urine Urobilinogen Dipstick 0.2 mg/dL (0.2 mg/dL) Urine Leukocyte Esterase Large (NEG) Urine RBC 1-2 /HPF (0-2) Urine WBC Tntc /HPF (0-4) Urine Squamous Epithelial Cells Few /LPF Urine Transitional Epithelial Cells Occ /LPF Urine Bacteria Many /HPF (0-FEW) Urine Mucus Marked /LPF Lactic Acid Level 1.5 mmol/L (0.4-2.0) Test 02/11/17 07:16 02/11/17 11:47 Glucose (Fingerstick) 110 mg/dL (70-99) 159 mg/dL (70-99) Laboratory Tests Test 02/10/17 17:58 02/10/17 18:15 02/10/17 22:00 02/11/17 04:00 White Blood Count 10.4 x10^3/uL (4.0-11.0) 10.0 x10^3/uL (4.0-11.0) Red Blood Count 3.44 x10^6/uL (3.50-5.40) 3.36 x10^6/uL (3.50-5.40) Hemoglobin 11.2 g/dL (12.0-15.5) 11.1 g/dL (12.0-15.5) Hematocrit 34.6 % (36.0-47.0) 33.4 % (36.0-47.0) Mean Corpuscular Volume 101 fL (79-100) 99 fL (79-100) Mean Corpuscular Hemoglobin 33 pg (25-35) 33 pg (25-35) Mean Corpuscular Hemoglobin Concent 32 g/dL (31-37) 33 g/dL (31-37) Red Cell Distribution Width 15.8 % (11.5-14.5) 15.7 % (11.5-14.5) Platelet Count 184 x10^3/uL (140-400) 194 x10^3/uL (140-400) Neutrophils (%) (Auto) 85 % (31-73) 82 % (31-73) Lymphocytes (%) (Auto) 5 % (24-48) 6 % (24-48) Monocytes (%) (Auto) 9 % (0-9) 10 % (0-9) Eosinophils (%) (Auto) 1 % (0-3) 1 % (0-3) Basophils (%) (Auto) 1 % (0-3) 0 % (0-3) Neutrophils # (Auto) 8.9 x10^3uL (1.8-7.7) 8.2 x10^3uL (1.8-7.7) Lymphocytes # (Auto) 0.5 x10^3/uL (1.0-4.8) 0.6 x10^3/uL (1.0-4.8) Monocytes # (Auto) 1.0 x10^3/uL (0.0-1.1) 1.0 x10^3/uL (0.0-1.1) Eosinophils # (Auto) 0.1 x10^3/uL (0.0-0.7) 0.1 x10^3/uL (0.0-0.7) Basophils # (Auto) 0.1 x10^3/uL (0.0-0.2) 0.0 x10^3/uL (0.0-0.2) Segmented Neutrophils % 78 % (35-66) Band Neutrophils % 7 % (0-9) Lymphocytes % 7 % (24-48) Monocytes % 8 % (0-10) Toxic Granulation Slight Platelet Estimate Adequate (ADEQUATE) Sodium Level 133 mmol/L (136-145) Potassium Level 3.9 mmol/L (3.5-5.1) Chloride Level 98 mmol/L (98-107) Carbon Dioxide Level 23 mmol/L (21-32) Anion Gap 12 (6-14) Blood Urea Nitrogen 17 mg/dL (7-20) Creatinine 3.8 mg/dL (0.6-1.0) Estimated GFR (Cockcroft-Gault) 13.8 Glucose Level 181 mg/dL (70-99) Calcium Level 9.0 mg/dL (8.5-10.1) Total Bilirubin 0.6 mg/dL (0.2-1.0) Direct Bilirubin 0.2 mg/dL (0.0-0.2) Aspartate Amino Transf (AST/SGOT) 13 U/L (15-37) Alanine Aminotransferase (ALT/SGPT) 6 U/L (14-59) Alkaline Phosphatase 110 U/L (46-116) Troponin I Quantitative 0.117 ng/mL (0.000-0.055) 0.118 ng/mL (0.000-0.055) 0.150 ng/mL (0.000-0.055) Total Protein 7.8 g/dL (6.4-8.2) Albumin 3.7 g/dL (3.4-5.0) Lipase 225 U/L (73-393) Urine Collection Type U cath Urine Color Dk yellow Urine Clarity Turbid Urine pH 6.0 Urine Specific [place] 1.015 Urine Protein >=300 mg/dL (NEG-TRACE) Urine Glucose (UA) Negative mg/dL (NEG) Urine Ketones (Stick) Trace mg/dL (NEG) Urine Blood Negative (NEG) Urine Nitrite Negative (NEG) Urine Bilirubin Small (NEG) Urine Urobilinogen Dipstick 0.2 mg/dL (0.2 mg/dL) Urine Leukocyte Esterase Large (NEG) Urine RBC 1-2 /HPF (0-2) Urine WBC Tntc /HPF (0-4) Urine Squamous Epithelial Cells Few /LPF Urine Transitional Epithelial Cells Occ /LPF Urine Bacteria Many /HPF (0-FEW) Urine Mucus Marked /LPF Lactic Acid Level 1.5 mmol/L (0.4-2.0) Test 02/11/17 07:16 02/11/17 11:47 Glucose (Fingerstick) 110 mg/dL (70-99) 159 mg/dL (70-99) Assessment/Plan Assessment/Plan IMP ESRD - TTS ANEMIA DM II HTN UTI RIGHT ARM EDEMA HX OF RIGHT ARM BB FISTULA-IT HAS A DIMINISHED THRILL AND BRUIT AND PULSATILE IN CHARACTER PLAN HD TTS ANTIBIOTICS WILL ASK IR TO DO A FISTULOGRAM AND INTERVENTION NEEDED 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
[2017-02-11 15:00] VITALS: BP 168/71
[2017-02-11] MEDS: PIPERACILLIN/TAZOBACTAM 2.25 GM in IV NORMAL SALINE 50ML 50 ML IV SCH (17:18)
[2017-02-11 19:50] VITALS: BP 139/60
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
[2017-02-11] MEDS: ATORVASTATIN CALCIUM 20 MG TABLET PO SCH (21:18)
[2017-02-11 23:30] VITALS: BP 153/75
[2017-02-12] VITALS (11 sets, daily range): BP systolic 121–184; BP diastolic 53–90
[2017-02-12] MEDS: PIPERACILLIN/TAZOBACTAM 2.25 GM in IV NORMAL SALINE 50ML 50 ML IV SCH ×2 (06:31→17:20)
[2017-02-12] MEDS: traMADol 50 MG TABLET PO PRN (07:16)
[2017-02-12] MEDS: SEVELAMER CARBONATE 800 MG TABLET. PO SCH ×3 (07:30→17:19)
[2017-02-12] MEDS: INSULIN DETEMIR 300 UNITS/3 ML INSULN.PEN. SQ SCH (08:00)
[2017-02-12] MEDS: LEVOTHYROXINE 75 MCG TABLET PO SCH (08:31)
[2017-02-12 08:57] LABS: INR 1.1 (0.8-1.1); PROTHROMBIN TIME PATIENT 13.3 SEC (11.7-14.0)
--- NOTE | 2017-02-12 10:11 | PDOC ---
ALEX MENDOZA [employer] RE[employer] 02/12/17 1011: CARDIO Progress Notes Date and Time Date of Service 02/12/17 Time of Evaluation 1030 Subjective Subjective: No Chest Pain, No shortness of breath, No Palpitations Vitals Vitals Vital Signs Date Time Temp Pulse Resp B/P (MAP) Pulse Ox O2 Delivery O2 Flow Rate FiO2 02/12/17 08:15 Room Air 02/12/17 07:00 98.5 76 20 151/76 (101) 99 98.5 Weight Weight [ ] Laboratory Labs Laboratory Tests Test 02/11/17 11:47 02/11/17 16:38 02/11/17 20:48 02/12/17 08:20 Glucose (Fingerstick) 159 mg/dL (70-99) 160 mg/dL (70-99) 193 mg/dL (70-99) 217 mg/dL (70-99) Test 02/12/17 08:30 Prothrombin Time 13.3 SEC (11.7-14.0) Prothromb Time International Ratio 1.1 (0.8-1.1) Microbiology Micro Microbiology 02/10/17 Blood Culture - Preliminary, Resulted NO GROWTH AFTER 1 DAY 02/10/17 Urine Culture - Preliminary, Resulted 02/10/17 Urine Culture Result 1 (MAYKEL) - Preliminary, Resulted Physical Exam HEENT: Neck Supple W Full Motion Chest: Symmetric LUNGS: Clear to Auscultation Heart: S1S2, RRR, murmurs (2/6 systolic murmur ) Extremities: Other (RUE edema ) Neurology: alert, oriented, follow commands Assessment Assessment 1. Slightly elevated troponin level; highest 0.150. Most probably demand ischemia related to accelerated HTN and RI. CP free and EKG without acute changes. Doubt ACS. Lexiscan MPI 11/2015 without any significant ischemia. Echo at that time showed LVEF 45-50% with severe pulmonary hypertension. Repeat echo pending to r/o WMA. Further recommendations pending diagnostics. 2. Accelerated hypertension: better controlled with resumption of home antiHTN therapy. Will increase coreg to 6.25mg. 3. UTI/sepsis: Continue intravenous antibiotics 4. Right upper extremity edema and pain: Plan for fistulogram to rule out central venous stenosis per nephrology 5. Hyperlipidemia: check lipids. Continue statin therapy 6. Hypothyroidism: Continue levothyroxine 7. Diabetes mellitus type 2: Treated per IM 8. End-stage renal disease: Hemodialysis per nephrology team AGA LIU MD 02/12/17 2014: CARDIO Progress Notes Assessment Assessment Patient seen and examined. Agree with PANEL MONITOR's assessment and plan. 2D echo showed EF 40-45%, PSAP 50 mm Hg BP better controlled Continue abx for UTI/sepsis HD per nephrology team ALEX MENDOZA APRN Feb 12, 2017 10:11 AGA LIU MD Feb 12, 2017 20:14
--- NOTE | 2017-02-12 11:34 | PDOC ---
Renal-Progress Notes Subjective Notes Notes RIGHT ARM FEELS A BIT BETTER BUT STILL SWOLLEN History of Present Illness Hx of present illness STABLE Vitals Vitals Vital Signs Date Time Temp Pulse Resp B/P (MAP) Pulse Ox O2 Delivery O2 Flow Rate FiO2 02/12/17 11:00 98.3 72 20 165/77 (106) 98 Room Air 98.3 Weight Weight [ ] Labs Labs Laboratory Tests Test 02/11/17 11:47 02/11/17 16:38 02/11/17 20:48 02/12/17 08:20 Glucose (Fingerstick) 159 mg/dL (70-99) 160 mg/dL (70-99) 193 mg/dL (70-99) 217 mg/dL (70-99) Test 02/12/17 08:30 02/12/17 11:19 Prothrombin Time 13.3 SEC (11.7-14.0) Prothromb Time International Ratio 1.1 (0.8-1.1) Glucose (Fingerstick) 169 mg/dL (70-99) Micro Micro Microbiology 02/10/17 Blood Culture - Preliminary, Resulted NO GROWTH AFTER 1 DAY 02/10/17 Urine Culture - Preliminary, Resulted 02/10/17 Urine Culture Result 1 (MAYKEL) - Preliminary, Resulted Review of Systems Constitutional: yes: weakness, alert, oriented Ears/Nose/Throat: Yes: no symptom reported Eyes: Yes: no symptom reported Pulmonary: Yes no symptom reported Cardiovascular: Yes no symptom reported Gastrointestional: Yes: no symptom reported Genitourinary: Yes: no symptom reported Musculoskeletal: Yes: muscle pain, other (RIGHT ARM PAIN) Skin: Yes no symptom reported Psychiatric/Neurological: Yes: no symptom reported Endocrine: Yes: no symptom reported Physical Exam General Appearance: no apparent distress Skin: warm Respiratory: bilateral CTA Heart: S1S2 Abdomen: soft, bowel sounds present Genitourinary: bladder flat Extremities: pulses present Neurology: alert, oriented Musculoskeletal: Osteoarthritis Assessment Assessment IMP RIGHT ARM EDEMA-SUSPECT CENTRAL VENOUS STENOSIS ANEMIA UTI ESRD HTN-LABILE PLAN CARDIOLOGY EVAL HD TOMORROW IR EVALUATION START [facility] IN AM JAVID BLANCHARD MD Feb 12, 2017 11:33
--- NOTE | 2017-02-12 12:08 | CARD ---
APPROVED REPORT EXAM: Two-dimensional and M-mode echocardiogram with Doppler and color Doppler. Other Information Quality : GoodHR: 81bpm Rhythm : NSR INDICATION Elevated troponin 2D DIMENSIONS RVDd3.5 (2.9-3.5cm)Left Atrium(2D)4.4 (1.6-4.0cm) IVSd1.5 (0.7-1.1cm)Aortic Root(2D)3.0 (2.0-3.7cm) LVDd4.6 (3.9-5.9cm)LVOT Diameter2.0 (1.8-2.4cm) PWd1.2 (0.7-1.1cm)LVDs3.8 (2.5-4.0cm) FS (%) 17.1 %SV34.8 ml M-Mode DIMENSIONS LVDd6.35 (4.0-5.6cm)FS (%) 24 % LVDs4.82 (2.0-3.8cm)ESV(Teich)108.8 ml LVEF(%)47 (>50%) Aortic Valve AoV Peak Stephen.164.7cm/sAoV VTI33.2cm AO Peak GR.10.8mmHgLVOT Peak Stephen.86.6cm/s AO Mean GR.6mmHgAVA (VMAX)1.73cm2 AI P 1/2 Fizc864nb Mitral Valve MV E Rbdcqyfe054.1cm/sMV DECEL QISV858ae MV A Mwbyrwtm705.6cm/sE/A Ratio0.9 MV A Xzldjsou42me Pulmonary Valve PV Peak Txetwiqv418.8cm/s Tricuspid Valve TR P. Bovtpuko568ku/sTR Peak Gr.53mmHg Pulmonary Vein S1 Qqvofmem11.1cm/sD2 Cgwywkuz71.6cm/s PVa mmwwswdp76krug LEFT VENTRICLE The left ventricle is normal size. There is mild asymmetric left ventricular hypertrophy. Left ventri daniela systolic function is mildly impaired. The Ejection Fraction is 40-45%. There is mild global hypok inesis of the left ventricle. Transmitral Doppler flow pattern is Grade I-abnormal relaxation pattern . No left ventricle thrombus noted on this study. RIGHT VENTRICLE The right ventricle is normal size. There is normal right ventricular wall thickness. The right ventr icular systolic function is normal. ATRIA The left atrium is mild to moderately dilated. The right atrium size is normal. The interatrial septu m is intact with no evidence for an atrial septal defect or patent foramen ovale as noted on 2-D or D oppler imaging. AORTIC VALVE The aortic valve is mildly sclerotic. The aortic valve is trileaflet. Doppler and Color Flow revealed mild to moderate aortic regurgitation. There is no significant aortic valvular stenosis. MITRAL VALVE Mitral annular calcification is mild. The mitral valve leaflets are thickened. There is no evidence o f mitral valve prolapse. There is no mitral valve stenosis. Doppler and Color Flow revealed mild to m oderate mitral regurgitation. TRICUSPID VALVE Doppler and Color Flow revealed moderate tricuspid regurgitation. The pulmonary artery systolic press ure is estimated at 50 mmHg. PULMONIC VALVE The pulmonic valve is not well visualized but appears to open adequately. Doppler and Color Flow reve aled mild pulmonic valvular regurgitation. There is no pulmonic valvular stenosis by spectral Doppler . GREAT VESSELS The aortic root is normal in size. The ascending aorta is normal in size. The pulmonary artery is nor mal. The IVC is normal in size and collapses >50% with inspiration. PERICARDIAL EFFUSION There is no evidence of significant pericardial effusion. Critical Notification Critical Value: No <Conclusion> The left ventricle is normal size. Left ventricle systolic function is mildly impaired. The Ejection Fraction is 40-45%. There is mild asymmetric left ventricular hypertrophy. There is mild global hypokinesis of the left ventricle. The left atrium is mild to moderately dilated. There is no significant aortic valvular stenosis. Doppler and Color Flow revealed mild to moderate aortic regurgitation. Doppler and Color Flow revealed mild to moderate mitral regurgitation. Doppler and Color Flow revealed moderate tricuspid regurgitation. The pulmonary artery systolic pressure is estimated at 50 mmHg.
[2017-02-12] MEDS ORDERED: IODIXANOL 320 MG/ML 100 ML VIAL. ONE (13:30)
[2017-02-12] MEDS ORDERED: LIDOCAINE 1% / SOD BICARB 8.4% 20 ML VIAL. IJ ONE ×2 (13:30→14:30)
[2017-02-12] MEDS ORDERED: fentaNYL PF VIAL 100 MCG/2 ML VIAL ONE (13:39)
[2017-02-12] MEDS ORDERED: MIDAZOLAM HCL/PF 2 MG/2 ML VIAL. ONE (13:40)
--- NOTE | 2017-02-12 13:52 | PDOC ---
SUBJECTIVE Subjective feels ok , still swelling arm OBJECTIVE Vital Signs Vital Signs Date Time Temp Pulse Resp B/P (MAP) Pulse Ox O2 Delivery O2 Flow Rate FiO2 02/12/17 11:00 98.3 72 20 165/77 (106) 98 Room Air 98.3 02/12/17 08:15 Room Air 02/12/17 07:16 Room Air 02/12/17 07:00 98.5 76 20 151/76 (101) 99 98.5 02/12/17 03:35 98.0 76 18 153/67 (95) 97 Room Air 98.0 02/11/17 23:30 98.5 81 20 153/75 (101) 96 Room Air 98.5 02/11/17 21:19 71 139/60 02/11/17 20:00 Room Air 02/11/17 19:50 98.3 71 18 139/60 (86) 97 Room Air 98.3 02/11/17 17:16 79 168/71 02/11/17 15:00 98.5 79 18 168/71 (103) 95 Room Air 98.5 PHYSICAL EXAM Physical Exam AXOX3 lungs fairly clear heart RRR abd soft and none tender + BS ext no E ASSESSMENT/PLAN Assessment/Plan 1. Slightly elevated troponin level; echo pending and cardiology following 2. Accelerated hypertension: coreg was increased to 6.25mg today 3. UTI/sepsis: Continue intravenous antibiotics 4. Right upper extremity edema and pain: for fistulogram to rule out central venous stenosis 5. Hyperlipidemia: Continue statin therapy 6. Hypothyroidism: Continue levothyroxine 7. Diabetes mellitus type 2: fair control 8. End-stage renal disease: on Hemodialysis Problems: COMMENT Lab Laboratory Tests Test 02/11/17 16:38 02/11/17 20:48 02/12/17 08:20 02/12/17 08:30 Glucose (Fingerstick) 160 mg/dL (70-99) 193 mg/dL (70-99) 217 mg/dL (70-99) Prothrombin Time 13.3 SEC (11.7-14.0) Prothromb Time International Ratio 1.1 (0.8-1.1) Test 02/12/17 11:19 Glucose (Fingerstick) 169 mg/dL (70-99) BRENDA PABON MD Feb 12, 2017 13:52
[2017-02-12] MEDS ORDERED: HEPARIN for IV BOLUS 10,000 UNIT/10 ML VIAL. ONE (14:06)
[2017-02-12] MEDS ORDERED: HEPARIN for IV BOLUS 10,000 UNIT/10 ML VIAL. IV ONE (14:30)
[2017-02-12] MEDS ORDERED: MIDAZOLAM HCL/PF 2 MG/2 ML VIAL. IV ONE (14:30)
[2017-02-12] MEDS ORDERED: fentaNYL PF VIAL 100 MCG/2 ML VIAL IV ONE (14:30)
[2017-02-12] MEDS ORDERED: IODIXANOL 320 MG/ML 100 ML VIAL. IART ONE (14:30)
[2017-02-12] MEDS: PANTOPRAZOLE 40 MG TABLET.DR. PO SCH (15:00)
[2017-02-12] MEDS: FUROSEMIDE 40 MG TABLET. PO SCH (15:00)
[2017-02-12] MEDS: amLODIPine BESYLATE 10 MG TABLET PO SCH (15:01)
[2017-02-12] MEDS: FOLIC/VIT B COMP W-C (RENAL) TABLET. PO SCH (15:01)
[2017-02-12] MEDS: ASPIRIN CHEWABLE 81 MG TABLET. PO SCH (15:01)
[2017-02-12] MEDS: SERTRALINE 25 MG TABLET. PO SCH (15:01)
[2017-02-12] MEDS: LOSARTAN POTASSIUM 50 MG TABLET. PO SCH (15:01)
--- NOTE | 2017-02-12 15:39 | RAD ---
Right upper extremity fistulogram, balloon venoplasty of right innominate vein in-stent stenosis. 02/12/2017 Indication: 81-year-old female with right upper extremity AV graft with recurrent arm swelling. History of right innominate vein stenting status post prior balloon venoplasty of in stent stenosis. Discussion: The risks and benefits of the procedure were discussed with the patient. Informed consent was obtained. The right upper extremity was prepped and draped using maximal sterile barrier technique. 1% lidocaine was administered for local anesthesia. The right upper extremity AV graft was accessed using micropuncture technique under direct ultrasound visualization. Reference images were saved to the medical record. A fistulogram was were performed demonstrating a high-grade in-stent stenosis/near occlusion in the right innominate vein stent. Filling of multiple venous collaterals is noted in the neck and upper chest. The remainder of the graft is patent. 2 Aneurysms noted within the graft at the site of prior access similar to prior study. The arterial-graft anastomosis is patent.035 guidewire was advanced centrally. A 7 German vascular sheath was placed. Stenosis was traversed using an angled Glidewire. A Singh catheter was advanced into the inferior vena cava. The Glidewire was exchanged for an Amplatz wire. Over this wire, balloon dilatation of this in-stent stenosis performed with an 8, and subsequently a 10 mm high pressure balloon. Repeat venograms were performed demonstrating significantly improved morphology and flow through the stenosis. Some residual stenosis was noted however flow is brisk, and all of the previously seen venous collaterals were no longer visualized. The sheath was removed over a pursestring suture. Manual pressure was held. Sterile dressing was applied. No immediate complications were identified. Fluoroscopy time: 5.1 minutes Dose area product: 67 Gycm2 The procedures performed under conscious sedation including continuous cardiopulmonary monitoring via dedicated sedation nurse. 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 This is successfully treated with balloon angioplasty.
[2017-02-12] MEDS: CLOPIDOGREL BISULFATE 75 MG TABLET PO SCH (17:19)
[2017-02-12] MEDS: CARVEDILOL 6.25 MG TABLET. PO SCH (17:20)
[2017-02-12] MEDS: ATORVASTATIN CALCIUM 20 MG TABLET PO SCH (20:52)
[2017-02-13] MEDS: traMADol 50 MG TABLET PO PRN (01:24)
[2017-02-13 03:00] VITALS: BP 158/67
[2017-02-13] MEDS: PIPERACILLIN/TAZOBACTAM 2.25 GM in IV NORMAL SALINE 50ML 50 ML IV SCH (06:06)
[2017-02-13 07:00] VITALS: BP 164/72
[2017-02-13] MEDS: SEVELAMER CARBONATE 800 MG TABLET. PO SCH ×4 (07:30→17:07)
[2017-02-13] MEDS ORDERED: MORPHINE SULFATE 4 MG/ML DISP.SYRIN. IV ONE (07:45)
[2017-02-13] MEDS: INSULIN DETEMIR 300 UNITS/3 ML INSULN.PEN. SQ SCH ×2 (08:00→18:11)
[2017-02-13 08:11] LABS: HEMATOCRIT 33.4 % (36.0-47.0); HEMOGLOBIN 10.7 g/dL (12.0-15.5); RED BLOOD COUNT 3.32 x10^6/uL (3.50-5.40); RED CELL DISTRIBUTION WIDTH 15.3 % (11.5-14.5); WHITE BLOOD COUNT 11.3 x10^3/uL (4.0-11.0)
[2017-02-13 08:17] LABS: CALCIUM 8.3 mg/dL (8.5-10.1); CREATININE 7.8 mg/dL (0.6-1.0); POTASSIUM 5.5 mmol/L (3.5-5.1)
[2017-02-13 08:23] LABS: CHOLESTEROL/HDL RATIO 1.5
--- NOTE | 2017-02-13 09:51 | PDOC ---
SUBJECTIVE Subjective C/O R hip pain seen in dialysis, pain seem severe with minimal movement OBJECTIVE Vital Signs Vital Signs Date Time Temp Pulse Resp B/P (MAP) Pulse Ox O2 Delivery O2 Flow Rate FiO2 02/13/17 08:00 Room Air 02/13/17 07:59 Room Air 02/13/17 07:00 98.2 74 18 164/72 (102) 97 Room Air 98.2 02/13/17 03:00 98.4 74 20 158/67 (97) 96 Room Air 98.4 02/13/17 01:24 Room Air 02/12/17 23:00 98.2 72 20 121/53 (75) 98 Room Air 98.2 02/12/17 20:53 70 141/62 02/12/17 20:00 Room Air 02/12/17 19:25 98.2 70 20 141/62 (88) 98 Room Air 98.2 02/12/17 17:20 78 172/90 02/12/17 16:15 78 18 172/90 (117) 100 Room Air 02/12/17 15:45 76 18 174/86 (115) 100 Room Air 02/12/17 15:30 78 18 172/76 (108) 100 Room Air 02/12/17 15:15 78 18 175/82 (113) 100 Room Air 02/12/17 15:01 75 184/80 02/12/17 15:01 75 184/80 02/12/17 15:00 75 184/80 02/12/17 14:55 98.1 77 18 181/78 (112) 100 Room Air 98.1 02/12/17 14:48 18 96 Room Air 02/12/17 14:33 75 21 100 Nasal Cannula 2.0 02/12/17 11:00 98.3 72 20 165/77 (106) 98 Room Air 98.3 PHYSICAL EXAM Physical Exam arm swelling improved pain with right hip movement ASSESSMENT/PLAN Assessment/Plan 1- 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 successfully treated with balloon angioplasty. 2-right hip pain without trauma will obtain x ray 3. Slightly elevated troponin level, echo noted 3. Accelerated hypertension: improved 4. UTI/sepsis: to Augmentin per sensitivity 5. Hyperlipidemia: Continue statin therapy 6. Hypothyroidism: Continue levothyroxine 7. Diabetes mellitus type 2: fair control 8. End-stage renal disease: on Hemodialysis Problems: COMMENT Lab Laboratory Tests Test 02/12/17 11:19 02/12/17 16:14 02/12/17 20:36 02/13/17 07:14 Glucose (Fingerstick) 169 mg/dL (70-99) 220 mg/dL (70-99) 256 mg/dL (70-99) 144 mg/dL (70-99) Test 02/13/17 07:50 White Blood Count 11.3 x10^3/uL (4.0-11.0) Red Blood Count 3.32 x10^6/uL (3.50-5.40) Hemoglobin 10.7 g/dL (12.0-15.5) Hematocrit 33.4 % (36.0-47.0) Mean Corpuscular Volume 101 fL (79-100) Mean Corpuscular Hemoglobin 32 pg (25-35) Mean Corpuscular Hemoglobin Concent 32 g/dL (31-37) Red Cell Distribution Width 15.3 % (11.5-14.5) Platelet Count 204 x10^3/uL (140-400) Sodium Level 131 mmol/L (136-145) Potassium Level 5.5 mmol/L (3.5-5.1) Chloride Level 96 mmol/L (98-107) Carbon Dioxide Level 20 mmol/L (21-32) Anion Gap 15 (6-14) Blood Urea Nitrogen 46 mg/dL (7-20) Creatinine 7.8 mg/dL (0.6-1.0) Estimated GFR (Cockcroft-Gault) 6.0 Glucose Level 158 mg/dL (70-99) Calcium Level 8.3 mg/dL (8.5-10.1) Triglycerides Level 67 mg/dL (0-150) Cholesterol Level 114 mg/dL (0-200) LDL Cholesterol, Calculated 26 mg/dL (0-100) VLDL Cholesterol, Calculated 13 mg/dL (0-40) Non-HDL Cholesterol Calculated 39 mg/dL (0-129) HDL Cholesterol 75 mg/dL (40-60) Cholesterol/HDL Ratio 1.5 BRENDA PABON MD Feb 13, 2017 09:51
--- NOTE | 2017-02-13 11:53 | PDOC ---
Renal-Progress Notes Subjective Notes Notes SOME RIGHT HIP PAIN, DOING OK OTHERWISE History of Present Illness Hx of present illness BETTER Vitals Vitals Vital Signs Date Time Temp Pulse Resp B/P (MAP) Pulse Ox O2 Delivery O2 Flow Rate FiO2 02/13/17 08:00 Room Air 02/13/17 07:00 98.2 74 18 164/72 (102) 97 98.2 02/12/17 14:33 2.0 Weight Weight [ ] Labs Labs Laboratory Tests Test 02/12/17 16:14 02/12/17 20:36 02/13/17 07:14 02/13/17 07:50 Glucose (Fingerstick) 220 mg/dL (70-99) 256 mg/dL (70-99) 144 mg/dL (70-99) White Blood Count 11.3 x10^3/uL (4.0-11.0) Red Blood Count 3.32 x10^6/uL (3.50-5.40) Hemoglobin 10.7 g/dL (12.0-15.5) Hematocrit 33.4 % (36.0-47.0) Mean Corpuscular Volume 101 fL (79-100) Mean Corpuscular Hemoglobin 32 pg (25-35) Mean Corpuscular Hemoglobin Concent 32 g/dL (31-37) Red Cell Distribution Width 15.3 % (11.5-14.5) Platelet Count 204 x10^3/uL (140-400) Sodium Level 131 mmol/L (136-145) Potassium Level 5.5 mmol/L (3.5-5.1) Chloride Level 96 mmol/L (98-107) Carbon Dioxide Level 20 mmol/L (21-32) Anion Gap 15 (6-14) Blood Urea Nitrogen 46 mg/dL (7-20) Creatinine 7.8 mg/dL (0.6-1.0) Estimated GFR (Cockcroft-Gault) 6.0 Glucose Level 158 mg/dL (70-99) Calcium Level 8.3 mg/dL (8.5-10.1) Triglycerides Level 67 mg/dL (0-150) Cholesterol Level 114 mg/dL (0-200) LDL Cholesterol, Calculated 26 mg/dL (0-100) VLDL Cholesterol, Calculated 13 mg/dL (0-40) Non-HDL Cholesterol Calculated 39 mg/dL (0-129) HDL Cholesterol 75 mg/dL (40-60) Cholesterol/HDL Ratio 1.5 Micro Micro Microbiology 02/10/17 Blood Culture - Preliminary, Resulted NO GROWTH AFTER 2 DAYS 02/10/17 Urine Culture - Final, Complete 02/10/17 Urine Culture Result 1 (MAYKEL) - Final, Complete 02/10/17 Antimicrobic Susceptibility - Final, Complete Review of Systems Constitutional: yes: weakness, alert, oriented Ears/Nose/Throat: Yes: no symptom reported Eyes: Yes: no symptom reported Pulmonary: Yes no symptom reported Cardiovascular: Yes no symptom reported Gastrointestional: Yes: no symptom reported Genitourinary: Yes: no symptom reported Musculoskeletal: Yes: muscle pain, other Skin: Yes no symptom reported Psychiatric/Neurological: Yes: no symptom reported Endocrine: Yes: no symptom reported Physical Exam General Appearance: no apparent distress Skin: warm Respiratory: bilateral CTA Heart: S1S2 Abdomen: soft, bowel sounds present Genitourinary: bladder flat Extremities: pulses present Neurology: alert, oriented, follow commands Musculoskeletal: Osteoarthritis Assessment Assessment IMP RIGHT ARM 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
[2017-02-13] MEDS: amLODIPine BESYLATE 10 MG TABLET PO SCH (12:28)
[2017-02-13] MEDS: FUROSEMIDE 40 MG TABLET. PO SCH (12:28)
[2017-02-13] MEDS: ASPIRIN CHEWABLE 81 MG TABLET. PO SCH (12:29)
[2017-02-13] MEDS: CARVEDILOL 6.25 MG TABLET. PO SCH ×2 (12:29→17:07)
[2017-02-13] MEDS: LEVOTHYROXINE 75 MCG TABLET PO SCH (12:29)
[2017-02-13] MEDS: SERTRALINE 25 MG TABLET. PO SCH (12:29)
[2017-02-13] MEDS: PANTOPRAZOLE 40 MG TABLET.DR. PO SCH (12:29)
[2017-02-13] MEDS: LOSARTAN POTASSIUM 50 MG TABLET. PO SCH (12:30)
[2017-02-13] MEDS: FOLIC/VIT B COMP W-C (RENAL) TABLET. PO SCH (12:30)
[2017-02-13] MEDS: AMOXICILLIN/K CLAV 500/125MG TABLET. PO SCH ×2 (12:30→21:01)
[2017-02-13 15:06] VITALS: BP 131/89
--- NOTE | 2017-02-13 15:28 | RAD ---
Examination: 2 views of the right hip History: History of right hip pain Comparison: None available Findings Moderate to severe joint space loss identified in the right hip joint. Faint lucent line identified in the femoral head seen on the crosstable lateral view is probably artifactual and less likely a fracture. Impression: 1. Severe degenerative disease right hip joint. Faint lucent line identified in the femoral head seen on the crosstable lateral view is probably artifactual due to osteophytes and less likely a fracture. If there is pain consider CT or MRI for further evaluation.
[2017-02-13] MEDS ORDERED: DEXTROSE 50% 25 GM / 50ML DISP.SYRIN. IV PRN (18:15)
[2017-02-13 19:00] VITALS: BP 157/68
[2017-02-13] MEDS: ATORVASTATIN CALCIUM 20 MG TABLET PO SCH (21:01)
[2017-02-13] MEDS: CLOPIDOGREL BISULFATE 75 MG TABLET PO SCH (21:01)
[2017-02-13 23:00] VITALS: BP 161/63
[2017-02-14 03:00] VITALS: BP 141/60
[2017-02-14 07:00] VITALS: BP 176/76
[2017-02-14] MEDS: SEVELAMER CARBONATE 800 MG TABLET. PO SCH ×3 (07:52→17:14)
[2017-02-14] MEDS: LEVOTHYROXINE 75 MCG TABLET PO SCH (07:52)
[2017-02-14] MEDS: PANTOPRAZOLE 40 MG TABLET.DR. PO SCH (07:52)
--- NOTE | 2017-02-14 08:58 | PDOC ---
SUBJECTIVE Subjective still with significant pain R hip, xray noted will obtain MRI OBJECTIVE Vital Signs Vital Signs Date Time Temp Pulse Resp B/P (MAP) Pulse Ox O2 Delivery O2 Flow Rate FiO2 02/14/17 07:00 97.8 75 19 176/76 (109) 98 Room Air 97.8 02/14/17 03:00 98.2 73 18 141/60 (87) 98 98.2 02/13/17 23:00 97.9 74 20 161/63 (95) 100 97.9 02/13/17 21:02 73 157/68 02/13/17 20:00 Room Air 02/13/17 19:00 98.0 73 20 157/68 (97) 97 Room Air 98.0 02/13/17 17:07 76 131/89 02/13/17 15:06 98.0 76 20 131/89 (103) 95 Room Air 98.0 02/13/17 12:30 74 164/72 02/13/17 12:29 74 164/72 02/13/17 12:29 74 164/72 02/13/17 12:28 74 164/72 PHYSICAL EXAM Physical Exam arm swelling better still R hip pain with movement otherwise no change ASSESSMENT/PLAN Assessment/Plan 1- 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 successfully treated with balloon angioplasty. 2-right hip pain without trauma will obtain MRI , ortho consult 3. Slightly elevated troponin level, echo noted 3. Accelerated hypertension: improved 4. UTI/sepsis: to Augmentin per sensitivity 5. Hyperlipidemia: Continue statin therapy 6. Hypothyroidism: Continue levothyroxine 7. Diabetes mellitus type 2: fair control 8. End-stage renal disease: on Hemodialysis Problems: COMMENT Lab Laboratory Tests Test 02/13/17 16:57 02/13/17 20:46 02/14/17 07:16 02/14/17 08:09 Glucose (Fingerstick) 215 mg/dL (70-99) 224 mg/dL (70-99) 58 mg/dL (70-99) 84 mg/dL (70-99) BRENDA PABON MD Feb 14, 2017 08:58
[2017-02-14] MEDS: FUROSEMIDE 40 MG TABLET. PO SCH (09:12)
[2017-02-14] MEDS: CARVEDILOL 6.25 MG TABLET. PO SCH (09:12)
[2017-02-14] MEDS: AMOXICILLIN/K CLAV 500/125MG TABLET. PO SCH ×2 (09:13→21:01)
[2017-02-14] MEDS: amLODIPine BESYLATE 10 MG TABLET PO SCH (09:13)
[2017-02-14] MEDS: ASPIRIN CHEWABLE 81 MG TABLET. PO SCH (09:13)
[2017-02-14] MEDS: CLOPIDOGREL BISULFATE 75 MG TABLET PO SCH (09:13)
[2017-02-14] MEDS: FOLIC/VIT B COMP W-C (RENAL) TABLET. PO SCH (09:13)
[2017-02-14] MEDS: SERTRALINE 25 MG TABLET. PO SCH (09:13)
[2017-02-14] MEDS: LOSARTAN POTASSIUM 50 MG TABLET. PO SCH (09:14)
[2017-02-14] MEDS: POLYETHYLENE GLYCOL 3350 17 GM PACKET. PO SCH ×2 (09:41→21:00)
[2017-02-14 11:17] VITALS: BP 176/67
--- NOTE | 2017-02-14 12:14 | PDOC ---
Renal-Progress Notes Subjective Notes Notes CONTINUES TO HAVE HIP PAIN History of Present Illness Hx of present illness STABLE Vitals Vitals Vital Signs Date Time Temp Pulse Resp B/P (MAP) Pulse Ox O2 Delivery O2 Flow Rate FiO2 02/14/17 11:17 98.1 75 18 176/67 (103) 97 Room Air 98.1 Weight Weight [ ] Labs Labs Laboratory Tests Test 02/13/17 16:57 02/13/17 20:46 02/14/17 07:16 02/14/17 08:09 Glucose (Fingerstick) 215 mg/dL (70-99) 224 mg/dL (70-99) 58 mg/dL (70-99) 84 mg/dL (70-99) Micro Micro Microbiology 02/10/17 Blood Culture - Preliminary, Resulted NO GROWTH AFTER 3 DAYS 02/10/17 Urine Culture - Final, Complete 02/10/17 Urine Culture Result 1 (MAYKEL) - Final, Complete 02/10/17 Antimicrobic Susceptibility - Final, Complete Review of Systems Constitutional: yes: weakness, alert, oriented Ears/Nose/Throat: Yes: no symptom reported Eyes: Yes: no symptom reported Pulmonary: Yes no symptom reported Cardiovascular: Yes no symptom reported Gastrointestional: Yes: no symptom reported Genitourinary: Yes: no symptom reported Musculoskeletal: Yes: muscle pain, other Skin: Yes no symptom reported Psychiatric/Neurological: Yes: no symptom reported Endocrine: Yes: no symptom reported Physical Exam General Appearance: no apparent distress Skin: warm Respiratory: bilateral CTA Heart: S1S2 Abdomen: soft, bowel sounds present Genitourinary: bladder flat Extremities: pulses present Neurology: alert, oriented, follow commands Musculoskeletal: Osteoarthritis Assessment Assessment IMP RIGHT 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
[2017-02-14] MEDS: INSULIN DETEMIR 300 UNITS/3 ML INSULN.PEN. SQ SCH (12:36)
--- NOTE | 2017-02-14 14:44 | RAD ---
MR of the musculoskeletal pelvis Indication: PELVIC PAIN, RIGHT HIP PAIN, RECENT FALLS, NO SX HX, NO PRIORS Technique: Standard multiplanar sequences are obtained with a large [id number], through the musculoskeletal pelvis. Study is not protocoled for examination of intrapelvic soft tissue structures. Findings: Bones: No acute fracture, aggressive bone destruction, or acute bone marrow edema. No femoral head osteonecrosis. Hips: Moderate primary osteoarthritis bilaterally. Trace fluid at both hips, slightly greater on the right. Sacroiliac joints: Intact Pubic symphysis: Intact Major tendon attachments: Bilateral gluteus minimus and medius tendinosis. No acute rupture of the major tendon insertion. Muscles: Mild intramuscular edema bilaterally, particularly the proximal adductors and pectineus, and obturator externus. Lower lumbar spine: Poorly visualized, but there is evidence of degenerative spondylosis. Impression: 1. No evidence of acute fracture. 2. Mild intramuscular edema or strain about both hips. 3. Bilateral hip osteoarthritis. 4. Gluteus minimus and medius tendinosis bilaterally. Electronically signed by: Osito Ochoa MD (02/14/2017 2:40 PM) [facility]
[2017-02-14 15:34] VITALS: BP 162/71
[2017-02-14] MEDS: CARVEDILOL 12.5 MG TABLET. PO SCH (17:14)
--- NOTE | 2017-02-14 18:11 | PDOC ---
PROGRESS NOTES Subjective Subjective Problems overnight: Right hip pain with movement Objective Vital Signs Vital Signs Date Time Temp Pulse Resp B/P (MAP) Pulse Ox O2 Delivery O2 Flow Rate FiO2 02/14/17 17:14 71 162/71 02/14/17 15:34 98.2 96 Room Air 98.2 02/14/17 11:17 18 02/12/17 14:33 2.0 Physical Exam No pain with weightbearing through an extended extremity mainly on movement of the right hip Labs Laboratory Tests Test 02/12/17 20:36 02/13/17 07:14 02/13/17 07:50 02/13/17 16:57 Glucose (Fingerstick) 256 mg/dL (70-99) 144 mg/dL (70-99) 215 mg/dL (70-99) White Blood Count 11.3 x10^3/uL (4.0-11.0) Red Blood Count 3.32 x10^6/uL (3.50-5.40) Hemoglobin 10.7 g/dL (12.0-15.5) Hematocrit 33.4 % (36.0-47.0) Mean Corpuscular Volume 101 fL (79-100) Mean Corpuscular Hemoglobin 32 pg (25-35) Mean Corpuscular Hemoglobin Concent 32 g/dL (31-37) Red Cell Distribution Width 15.3 % (11.5-14.5) Platelet Count 204 x10^3/uL (140-400) Sodium Level 131 mmol/L (136-145) Potassium Level 5.5 mmol/L (3.5-5.1) Chloride Level 96 mmol/L (98-107) Carbon Dioxide Level 20 mmol/L (21-32) Anion Gap 15 (6-14) Blood Urea Nitrogen 46 mg/dL (7-20) Creatinine 7.8 mg/dL (0.6-1.0) Estimated GFR (Cockcroft-Gault) 6.0 Glucose Level 158 mg/dL (70-99) Calcium Level 8.3 mg/dL (8.5-10.1) Triglycerides Level 67 mg/dL (0-150) Cholesterol Level 114 mg/dL (0-200) LDL Cholesterol, Calculated 26 mg/dL (0-100) VLDL Cholesterol, Calculated 13 mg/dL (0-40) Non-HDL Cholesterol Calculated 39 mg/dL (0-129) HDL Cholesterol 75 mg/dL (40-60) Cholesterol/HDL Ratio 1.5 Test 02/13/17 20:46 02/14/17 07:16 02/14/17 08:09 02/14/17 12:30 Glucose (Fingerstick) 224 mg/dL (70-99) 58 mg/dL (70-99) 84 mg/dL (70-99) 177 mg/dL (70-99) Test 02/14/17 17:12 Glucose (Fingerstick) 212 mg/dL (70-99) Laboratory Tests Test 02/13/17 20:46 02/14/17 07:16 02/14/17 08:09 02/14/17 12:30 Glucose (Fingerstick) 224 mg/dL (70-99) 58 mg/dL (70-99) 84 mg/dL (70-99) 177 mg/dL (70-99) Test 02/14/17 17:12 Glucose (Fingerstick) 212 mg/dL (70-99) Imaging MRI shows no evidence of fracture only moderate degenerative change which is likewise seen on AP lateral plain x-rays of the right hip Assessment Assessment Right hip pain and degenerative joint disease Problems: Plan Plan of Care Symptomatic management of right hip pain possible injection and pain clinic if persistent as opposed to any prospective operative intervention LORIE MARLOW MD Feb 14, 2017 18:11
[2017-02-14 19:00] VITALS: BP 135/51
[2017-02-14] MEDS: ATORVASTATIN CALCIUM 20 MG TABLET PO SCH (21:01)
[2017-02-14 23:00] VITALS: BP 144/66
[2017-02-15 03:00] VITALS: BP 162/63
[2017-02-15 05:01] LABS: HEMATOCRIT 31.6 % (36.0-47.0); HEMOGLOBIN 10.4 g/dL (12.0-15.5); RED BLOOD COUNT 3.18 x10^6/uL (3.50-5.40); RED CELL DISTRIBUTION WIDTH 15.5 % (11.5-14.5)
[2017-02-15 05:16] LABS: CALCIUM 8.2 mg/dL (8.5-10.1); CREATININE 6.7 mg/dL (0.6-1.0); GFR 7.2; POTASSIUM 4.2 mmol/L (3.5-5.1)
[2017-02-15] MEDS: LEVOTHYROXINE 75 MCG TABLET PO SCH (06:19)
[2017-02-15] MEDS: PANTOPRAZOLE 40 MG TABLET.DR. PO SCH (06:19)
[2017-02-15] MEDS: SEVELAMER CARBONATE 800 MG TABLET. PO SCH ×3 (07:30→17:10)
[2017-02-15] MEDS ORDERED: IV NORMAL SALINE 1000ML BAG 1,000 ML IV PRN (08:47)
[2017-02-15] MEDS ORDERED: DIALYSIS PATIENT. MC PRN (09:00)
[2017-02-15] MEDS: POLYETHYLENE GLYCOL 3350 17 GM PACKET. PO SCH ×2 (09:00→20:09)
--- NOTE | 2017-02-15 09:53 | PDOC ---
SUBJECTIVE Subjective still in lots of pain R hip, MRI without fracture , ortho consult noted OBJECTIVE Vital Signs Vital Signs Date Time Temp Pulse Resp B/P (MAP) Pulse Ox O2 Delivery O2 Flow Rate FiO2 02/15/17 03:00 98.1 71 20 162/63 (96) 95 Room Air 98.1 02/14/17 23:00 97.9 70 20 144/66 (92) 95 Room Air 97.9 02/14/17 21:02 70 130/51 02/14/17 20:00 Room Air 02/14/17 19:00 98.1 74 20 135/51 (79) 100 Room Air 98.1 02/14/17 17:14 71 162/71 02/14/17 15:34 98.2 71 162/71 (101) 96 Room Air 98.2 02/14/17 15:07 71 162/71 02/14/17 11:17 98.1 75 18 176/67 (103) 97 Room Air 98.1 PHYSICAL EXAM Physical Exam still with hip pain with minimal movement or palpation, less swelling arm rest of exam stable ASSESSMENT/PLAN Assessment/Plan 1- 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 successfully treated with balloon angioplasty. 2-right hip pain appreciate ortho consult will proceed with hip injection she is still in significant pain 3. Slightly elevated troponin level, echo noted 3. Accelerated hypertension: improved 4. UTI/sepsis: to Augmentin per sensitivity 5. Hyperlipidemia: Continue statin therapy 6. Hypothyroidism: Continue levothyroxine 7. Diabetes mellitus type 2: fair control will monitor after steroids 8. End-stage renal disease: on Hemodialysis Problems: COMMENT Lab Laboratory Tests Test 02/14/17 12:30 02/14/17 17:12 02/15/17 03:59 02/15/17 04:28 Glucose (Fingerstick) 177 mg/dL (70-99) 212 mg/dL (70-99) 54 mg/dL (70-99) White Blood Count 8.0 x10^3/uL (4.0-11.0) Red Blood Count 3.18 x10^6/uL (3.50-5.40) Hemoglobin 10.4 g/dL (12.0-15.5) Hematocrit 31.6 % (36.0-47.0) Mean Corpuscular Volume 99 fL (79-100) Mean Corpuscular Hemoglobin 33 pg (25-35) Mean Corpuscular Hemoglobin Concent 33 g/dL (31-37) Red Cell Distribution Width 15.5 % (11.5-14.5) Platelet Count 165 x10^3/uL (140-400) Sodium Level 134 mmol/L (136-145) Potassium Level 4.2 mmol/L (3.5-5.1) Chloride Level 96 mmol/L (98-107) Carbon Dioxide Level 28 mmol/L (21-32) Anion Gap 10 (6-14) Blood Urea Nitrogen 33 mg/dL (7-20) Creatinine 6.7 mg/dL (0.6-1.0) Estimated GFR (Cockcroft-Gault) 7.2 Glucose Level 73 mg/dL (70-99) Calcium Level 8.2 mg/dL (8.5-10.1) Test 02/15/17 04:38 Glucose (Fingerstick) 82 mg/dL (70-99) BRENDA PABON MD Feb 15, 2017 09:52
[2017-02-15 11:25] VITALS: BP 168/78
--- NOTE | 2017-02-15 11:40 | PDOC ---
Renal-Progress Notes Subjective Notes Notes CONTINUES TO HAVE HIP PAIN History of Present Illness Hx of present illness STABLE Vitals Vitals Vital Signs Date Time Temp Pulse Resp B/P (MAP) Pulse Ox O2 Delivery O2 Flow Rate FiO2 02/15/17 03:00 98.1 71 20 162/63 (96) 95 Room Air 98.1 Weight Weight [ ] Labs Labs Laboratory Tests Test 02/14/17 12:30 02/14/17 17:12 02/15/17 03:59 02/15/17 04:28 Glucose (Fingerstick) 177 mg/dL (70-99) 212 mg/dL (70-99) 54 mg/dL (70-99) White Blood Count 8.0 x10^3/uL (4.0-11.0) Red Blood Count 3.18 x10^6/uL (3.50-5.40) Hemoglobin 10.4 g/dL (12.0-15.5) Hematocrit 31.6 % (36.0-47.0) Mean Corpuscular Volume 99 fL (79-100) Mean Corpuscular Hemoglobin 33 pg (25-35) Mean Corpuscular Hemoglobin Concent 33 g/dL (31-37) Red Cell Distribution Width 15.5 % (11.5-14.5) Platelet Count 165 x10^3/uL (140-400) Sodium Level 134 mmol/L (136-145) Potassium Level 4.2 mmol/L (3.5-5.1) Chloride Level 96 mmol/L (98-107) Carbon Dioxide Level 28 mmol/L (21-32) Anion Gap 10 (6-14) Blood Urea Nitrogen 33 mg/dL (7-20) Creatinine 6.7 mg/dL (0.6-1.0) Estimated GFR (Cockcroft-Gault) 7.2 Glucose Level 73 mg/dL (70-99) Calcium Level 8.2 mg/dL (8.5-10.1) Test 02/15/17 04:38 02/15/17 11:24 Glucose (Fingerstick) 82 mg/dL (70-99) 104 mg/dL (70-99) Micro Micro Microbiology 02/10/17 Blood Culture - Preliminary, Resulted NO GROWTH AFTER 4 DAYS 02/10/17 Urine Culture - Final, Complete 02/10/17 Urine Culture Result 1 (MAYKEL) - Final, Complete 02/10/17 Antimicrobic Susceptibility - Final, Complete Review of Systems Constitutional: yes: weakness, alert, oriented Ears/Nose/Throat: Yes: no symptom reported Eyes: Yes: no symptom reported Pulmonary: Yes no symptom reported Cardiovascular: Yes no symptom reported Gastrointestional: Yes: no symptom reported Genitourinary: Yes: no symptom reported Musculoskeletal: Yes: muscle pain, other Skin: Yes no symptom reported Psychiatric/Neurological: Yes: no symptom reported Endocrine: Yes: no symptom reported Physical Exam General Appearance: no apparent distress Skin: warm Respiratory: bilateral CTA Heart: S1S2 Abdomen: soft, bowel sounds present Genitourinary: bladder flat Extremities: pulses present Neurology: alert, oriented, follow commands Musculoskeletal: Osteoarthritis Assessment Assessment IMP RIGHT ARM EDEMA-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
[2017-02-15] MEDS: CLOPIDOGREL BISULFATE 75 MG TABLET PO SCH (12:01)
[2017-02-15] MEDS: LOSARTAN POTASSIUM 50 MG TABLET. PO SCH (12:01)
[2017-02-15] MEDS: ASPIRIN CHEWABLE 81 MG TABLET. PO SCH (12:02)
[2017-02-15] MEDS: FUROSEMIDE 40 MG TABLET. PO SCH (12:02)
[2017-02-15] MEDS: CARVEDILOL 12.5 MG TABLET. PO SCH ×2 (12:02→17:11)
[2017-02-15] MEDS: AMOXICILLIN/K CLAV 500/125MG TABLET. PO SCH ×2 (12:03→21:30)
[2017-02-15] MEDS: FOLIC/VIT B COMP W-C (RENAL) TABLET. PO SCH (12:03)
[2017-02-15] MEDS: SERTRALINE 25 MG TABLET. PO SCH (12:03)
[2017-02-15] MEDS: amLODIPine BESYLATE 10 MG TABLET PO SCH (12:03)
[2017-02-15] MEDS: INSULIN DETEMIR 300 UNITS/3 ML INSULN.PEN. SQ SCH (12:10)
[2017-02-15 14:30] VITALS: BP 138/57
[2017-02-15 19:00] VITALS: BP 145/49
[2017-02-15] MEDS: ATORVASTATIN CALCIUM 20 MG TABLET PO SCH (21:30)
[2017-02-15 23:03] VITALS: BP 108/52
[2017-02-16 03:00] VITALS: BP 143/58
[2017-02-16] MEDS: PANTOPRAZOLE 40 MG TABLET.DR. PO SCH (06:11)
[2017-02-16] MEDS: LEVOTHYROXINE 75 MCG TABLET PO SCH (06:11)
[2017-02-16 07:00] VITALS: BP 140/71
[2017-02-16] MEDS: SEVELAMER CARBONATE 800 MG TABLET. PO SCH ×3 (07:53→17:29)
[2017-02-16] MEDS: INSULIN DETEMIR 300 UNITS/3 ML INSULN.PEN. SQ SCH (07:58)
[2017-02-16] MEDS: FUROSEMIDE 40 MG TABLET. PO SCH (08:17)
[2017-02-16] MEDS: SERTRALINE 25 MG TABLET. PO SCH (08:17)
[2017-02-16] MEDS: FOLIC/VIT B COMP W-C (RENAL) TABLET. PO SCH (08:17)
[2017-02-16] MEDS: ASPIRIN CHEWABLE 81 MG TABLET. PO SCH (08:17)
[2017-02-16] MEDS: AMOXICILLIN/K CLAV 500/125MG TABLET. PO SCH ×2 (08:17→21:42)
[2017-02-16] MEDS: CLOPIDOGREL BISULFATE 75 MG TABLET PO SCH (08:17)
[2017-02-16] MEDS: CARVEDILOL 12.5 MG TABLET. PO SCH ×2 (08:18→17:29)
[2017-02-16] MEDS: LOSARTAN POTASSIUM 50 MG TABLET. PO SCH (08:19)
[2017-02-16] MEDS: amLODIPine BESYLATE 10 MG TABLET PO SCH (08:19)
[2017-02-16] MEDS: POLYETHYLENE GLYCOL 3350 17 GM PACKET. PO SCH ×2 (08:28→21:43)
--- NOTE | 2017-02-16 09:25 | PDOC ---
SUBJECTIVE Subjective feels better today, has been up with PT , does not have help at home OBJECTIVE Vital Signs Vital Signs Date Time Temp Pulse Resp B/P (MAP) Pulse Ox O2 Delivery O2 Flow Rate FiO2 02/16/17 08:19 70 140/71 02/16/17 08:19 70 140/71 02/16/17 08:18 70 140/71 02/16/17 08:18 70 140/71 02/16/17 07:00 98.7 70 18 140/71 (94) 100 Room Air 98.7 02/16/17 03:00 98.1 72 16 143/58 (86) 100 Room Air 98.1 02/15/17 23:03 98.2 71 16 108/52 (70) 100 Room Air 98.2 02/15/17 21:31 69 141/53 02/15/17 20:00 Room Air 02/15/17 19:00 98.2 72 16 145/49 (81) 94 Room Air 98.2 02/15/17 17:11 72 138/57 02/15/17 14:30 98.7 72 18 138/57 (84) 98 Room Air 98.7 02/15/17 12:03 70 141/53 02/15/17 12:02 70 141/53 02/15/17 12:01 70 141/53 02/15/17 12:01 70 141/53 02/15/17 11:25 97.9 75 18 168/78 (108) 100 Room Air 97.9 PHYSICAL EXAM Physical Exam stable ASSESSMENT/PLAN Assessment/Plan 1- 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 successfully treated with balloon angioplasty. 2-right hip pain appreciate ortho consult 3. Slightly elevated troponin level, echo noted 3. Accelerated hypertension: improved 4. UTI/sepsis: to Augmentin per sensitivity 5. Hyperlipidemia: Continue statin therapy 6. Hypothyroidism: Continue levothyroxine 7. Diabetes mellitus type 2: fair control will monitor after steroids 8. End-stage renal disease: on Hemodialysis increase activity, hip injection today and home after dialysis in AM Problems: COMMENT Lab Laboratory Tests Test 02/15/17 11:24 02/15/17 16:34 02/15/17 21:10 02/16/17 07:56 Glucose (Fingerstick) 104 mg/dL (70-99) 252 mg/dL (70-99) 240 mg/dL (70-99) 110 mg/dL (70-99) BRENDA PABON MD Feb 16, 2017 09:25
[2017-02-16 11:00] VITALS: BP 100/63
--- NOTE | 2017-02-16 12:34 | PDOC ---
Renal-Progress Notes Subjective Notes Notes TRYING TO WALK History of Present Illness Hx of present illness BETTER Vitals Vitals Vital Signs Date Time Temp Pulse Resp B/P (MAP) Pulse Ox O2 Delivery O2 Flow Rate FiO2 02/16/17 11:00 98.7 67 18 100/63 (75) 99 Room Air 98.7 02/16/17 08:00 2.0 Weight Weight [ ] Labs Labs Laboratory Tests Test 02/15/17 16:34 02/15/17 21:10 02/16/17 07:56 02/16/17 10:50 Glucose (Fingerstick) 252 mg/dL (70-99) 240 mg/dL (70-99) 110 mg/dL (70-99) 195 mg/dL (70-99) Micro Micro Microbiology 02/10/17 Blood Culture - Final, Complete NO GROWTH AFTER 5 DAYS 02/10/17 Urine Culture - Final, Complete 02/10/17 Urine Culture Result 1 (MAYKEL) - Final, Complete 02/10/17 Antimicrobic Susceptibility - Final, Complete Review of Systems Constitutional: yes: weakness, alert, oriented Ears/Nose/Throat: Yes: no symptom reported Eyes: Yes: no symptom reported Pulmonary: Yes no symptom reported Cardiovascular: Yes no symptom reported Gastrointestional: Yes: no symptom reported Genitourinary: Yes: no symptom reported Musculoskeletal: Yes: muscle pain, other Skin: Yes no symptom reported Psychiatric/Neurological: Yes: no symptom reported Endocrine: Yes: no symptom reported Physical Exam General Appearance: no apparent distress Skin: warm Respiratory: bilateral CTA Heart: S1S2 Abdomen: soft, bowel sounds present Genitourinary: bladder flat Extremities: pulses present Neurology: alert, oriented, follow commands Musculoskeletal: Osteoarthritis Assessment Assessment IMP RIGHT ARM EDEMA-BETTER 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
[2017-02-16 14:44] VITALS: BP 132/58
[2017-02-16 19:00] VITALS: BP 136/69
[2017-02-16] MEDS: ATORVASTATIN CALCIUM 20 MG TABLET PO SCH (21:42)
[2017-02-16 23:00] VITALS: BP 136/89
[2017-02-17 03:00] VITALS: BP 132/66
[2017-02-17 05:07] LABS: HEMOGLOBIN 9.9 g/dL (12.0-15.5); RED BLOOD COUNT 3.03 x10^6/uL (3.50-5.40); RED CELL DISTRIBUTION WIDTH 14.8 % (11.5-14.5); WHITE BLOOD COUNT 6.2 x10^3/uL (4.0-11.0)
[2017-02-17 05:08] LABS: CALCIUM 8.5 mg/dL (8.5-10.1); CREATININE 6.4 mg/dL (0.6-1.0); GFR 7.6
[2017-02-17] MEDS: PANTOPRAZOLE 40 MG TABLET.DR. PO SCH (06:08)
[2017-02-17] MEDS: LEVOTHYROXINE 75 MCG TABLET PO SCH (06:09)
[2017-02-17] MEDS: SEVELAMER CARBONATE 800 MG TABLET. PO SCH ×2 (07:59→12:13)
[2017-02-17] MEDS: INSULIN DETEMIR 300 UNITS/3 ML INSULN.PEN. SQ SCH (08:01)
[2017-02-17] MEDS: AMOXICILLIN/K CLAV 500/125MG TABLET. PO SCH (08:04)
[2017-02-17] MEDS: FOLIC/VIT B COMP W-C (RENAL) TABLET. PO SCH (08:04)
[2017-02-17] MEDS: CLOPIDOGREL BISULFATE 75 MG TABLET PO SCH (08:05)
[2017-02-17] MEDS: ASPIRIN CHEWABLE 81 MG TABLET. PO SCH (08:05)
[2017-02-17] MEDS: POLYETHYLENE GLYCOL 3350 17 GM PACKET. PO SCH (09:00)
--- NOTE | 2017-02-17 11:37 | PDOC ---
Renal-Progress Notes Subjective Notes Notes FEELING BETTER History of Present Illness Hx of present illness STABLE Vitals Vitals Vital Signs Date Time Temp Pulse Resp B/P (MAP) Pulse Ox O2 Delivery O2 Flow Rate FiO2 02/17/17 11:00 off unit 02/17/17 03:00 98.4 69 18 132/66 (88) 98 98.4 02/16/17 08:00 2.0 Weight Weight [ ] Labs Labs Laboratory Tests Test 02/16/17 16:30 02/16/17 20:11 02/17/17 04:20 02/17/17 07:54 Glucose (Fingerstick) 283 mg/dL (70-99) 273 mg/dL (70-99) 155 mg/dL (70-99) White Blood Count 6.2 x10^3/uL (4.0-11.0) Red Blood Count 3.03 x10^6/uL (3.50-5.40) Hemoglobin 9.9 g/dL (12.0-15.5) Hematocrit 30.0 % (36.0-47.0) Mean Corpuscular Volume 99 fL (79-100) Mean Corpuscular Hemoglobin 33 pg (25-35) Mean Corpuscular Hemoglobin Concent 33 g/dL (31-37) Red Cell Distribution Width 14.8 % (11.5-14.5) Platelet Count 156 x10^3/uL (140-400) Sodium Level 133 mmol/L (136-145) Potassium Level 5.0 mmol/L (3.5-5.1) Chloride Level 96 mmol/L (98-107) Carbon Dioxide Level 30 mmol/L (21-32) Anion Gap 7 (6-14) Blood Urea Nitrogen 35 mg/dL (7-20) Creatinine 6.4 mg/dL (0.6-1.0) Estimated GFR (Cockcroft-Gault) 7.6 Glucose Level 148 mg/dL (70-99) Calcium Level 8.5 mg/dL (8.5-10.1) Micro Micro Microbiology 02/10/17 Blood Culture - Final, Complete NO GROWTH AFTER 5 DAYS 02/10/17 Urine Culture - Final, Complete 02/10/17 Urine Culture Result 1 (MAYKEL) - Final, Complete 02/10/17 Antimicrobic Susceptibility - Final, Complete Review of Systems Constitutional: yes: weakness, alert, oriented Ears/Nose/Throat: Yes: no symptom reported Eyes: Yes: no symptom reported Pulmonary: Yes no symptom reported Cardiovascular: Yes no symptom reported Gastrointestional: Yes: no symptom reported Genitourinary: Yes: no symptom reported Musculoskeletal: Yes: muscle pain, other Skin: Yes no symptom reported Psychiatric/Neurological: Yes: no symptom reported Endocrine: Yes: no symptom reported Physical Exam General Appearance: no apparent distress Skin: warm Respiratory: bilateral CTA Heart: S1S2 Abdomen: soft, bowel sounds present Genitourinary: bladder flat Extremities: pulses present Neurology: alert, oriented, follow commands Musculoskeletal: Osteoarthritis Assessment Assessment IMP RIGHT ARM EDEMA-BETTER 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
[2017-02-17] MEDS ORDERED: CARV3.122 PO (11:49)
[2017-02-17] MEDS ORDERED: INSU100I13 SQ (11:49)
[2017-02-17] MEDS ORDERED: AMOX1TAB10 PO (11:49)
--- NOTE | 2017-02-17 11:58 | PDOC ---
SUBJECTIVE Subjective seen in dialysis doing well OBJECTIVE Vital Signs Vital Signs Date Time Temp Pulse Resp B/P (MAP) Pulse Ox O2 Delivery O2 Flow Rate FiO2 02/17/17 11:00 off unit 02/17/17 09:26 off unit 02/17/17 07:00 off unit 02/17/17 03:00 98.4 69 18 132/66 (88) 98 Room Air 98.4 02/16/17 23:00 97.5 63 18 136/89 (105) 96 Room Air 97.5 02/16/17 21:43 64 144/52 02/16/17 20:00 Room Air 02/16/17 19:00 98.8 66 18 136/69 (91) 98 Room Air 98.8 02/16/17 17:29 78 132/58 02/16/17 14:48 78 132/58 02/16/17 14:44 98.3 78 20 132/58 (82) 98 Room Air 98.3 PHYSICAL EXAM Physical Exam lungs clear hip better ASSESSMENT/PLAN Assessment/Plan home today after dialysis. Problems: COMMENT Lab Laboratory Tests Test 02/16/17 16:30 02/16/17 20:11 02/17/17 04:20 02/17/17 07:54 Glucose (Fingerstick) 283 mg/dL (70-99) 273 mg/dL (70-99) 155 mg/dL (70-99) White Blood Count 6.2 x10^3/uL (4.0-11.0) Red Blood Count 3.03 x10^6/uL (3.50-5.40) Hemoglobin 9.9 g/dL (12.0-15.5) Hematocrit 30.0 % (36.0-47.0) Mean Corpuscular Volume 99 fL (79-100) Mean Corpuscular Hemoglobin 33 pg (25-35) Mean Corpuscular Hemoglobin Concent 33 g/dL (31-37) Red Cell Distribution Width 14.8 % (11.5-14.5) Platelet Count 156 x10^3/uL (140-400) Sodium Level 133 mmol/L (136-145) Potassium Level 5.0 mmol/L (3.5-5.1) Chloride Level 96 mmol/L (98-107) Carbon Dioxide Level 30 mmol/L (21-32) Anion Gap 7 (6-14) Blood Urea Nitrogen 35 mg/dL (7-20) Creatinine 6.4 mg/dL (0.6-1.0) Estimated GFR (Cockcroft-Gault) 7.6 Glucose Level 148 mg/dL (70-99) Calcium Level 8.5 mg/dL (8.5-10.1) BRENDA PABON MD Feb 17, 2017 11:58
--- NOTE | 2017-02-17 12:04 | PDOC3 ---
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 successfully treated with balloon angioplasty. 2- acute on chronic right hip pain due to DJD and sprain 3. Slightly elevated troponin level, none specific 3. Accelerated hypertension: improved 4. UTI/sepsis: on Augmentin per sensitivity 3 more daysfor total of 10 5. Hyperlipidemia: Continue statin therapy 6. Hypothyroidism: Continue levothyroxine 7. Diabetes mellitus type 2: fair control 8. End-stage renal disease: on Hemodialysis Problems Medical Problems: (1) End stage renal disease Status: Acute (2) Swelling of right hand Status: Acute (3) Urinary tract infection Status: Acute CONSULTS Renal, interventional radiology, Cardiology, Ortho, Physical Therapy Procedures CXR, CT abd and pelvis, venous US upper ext, venogram and balloon venoplasty of innominate vein, hip xray, pelvis MRI Brief Hospital Course Ms. Doyle is a 81 old [sex] who presented with [ ] Disposition/Orders: D/C to Home CONDITION AT DISCHARGE: Improved Diet: Renal, Consistent Carbohydrate Scheduled Amlodipine Besylate (Amlodipine Besylate), 10 MG PO DAILY, (Reported) Aspirin (Aspirin), 81 MG PO DAILY, (Reported) Atorvastatin Calcium (Lipitor), 20 MG PO HS, (Reported) Carvedilol (Carvedilol), 3.125 MG PO BIDWMEALS Clopidogrel Bisulfate (Plavix), 75 MG PO DAILY, (Reported) Esomeprazole Strontium (Esomeprazole Capsule), 40 MG PO DAILYAC, (Reported) Folic Acid/Vitamin B Comp W-C (Nephro-Manuel Tablet), 0.8 MG PO DAILY, (Reported) Furosemide (Lasix), 40 MG PO DAILY, (Reported) Hydralazine Hcl (Hydralazine Hcl), 100 MG PO TID, (Reported) Insulin Glargine,Hum.rec.anlog (Lantus Solostar), 30 UNIT SQ DAILYWBKFT, ( Reported) Levothyroxine Sodium (Synthroid), 75 MCG PO DAILYAC, (Reported) Losartan Potassium (Cozaar), 100 MG PO DAILY, (Reported) Oxycodone/Apap 5-325 (Percocet 5-325 Mg Tablet), 1-2 TAB PO Q4-6HRS Sertraline Hcl (Sertraline Hcl), 25 MG PO DAILY Sevelamer Carbonate (Renvela), 800 MG PO TIDAC, (Reported) Scheduled PRN Tramadol Hcl (Tramadol Hcl), 1 TAB PO PRN Q6HRS PRN for PAIN Trazodone Hcl (Trazodone Hcl), 50 MG PO PRN QHS PRN for INSOMNIA FOLLOW UP APPOINTMENT: Dr. Reed 1 week Time Spent Total time spent with patient [] minutes for coordination of care, counseling, and education. BRENDA PABON MD Feb 17, 2017 12:04
[2017-02-17] MEDS: SERTRALINE 25 MG TABLET. PO SCH (12:19)
[2017-02-17] MEDS: CARVEDILOL 12.5 MG TABLET. PO SCH (12:19)
[2017-02-17 12:20] VITALS: BP 170/71
[2017-02-17] MEDS: LOSARTAN POTASSIUM 50 MG TABLET. PO SCH (12:20)
[2017-02-17] MEDS: amLODIPine BESYLATE 10 MG TABLET PO SCH (12:20)
[2017-02-17] MEDS: FUROSEMIDE 40 MG TABLET. PO SCH (12:20)
== END 2017-02-17 14:00 | disposition home or self-care (01) | DRG 853 ==
LOC: ER 16:15 → 2 NORTH 19:13 → 5 NORTH 02-14 16:42
PROVIDERS: ADMIT Internal Medicine; ATTEND Internal Medicine
PROC: 5A1D60Z (ICD-10-PCS; principal; 2017-02-11)
PROC: 05733ZZ Dilation of Right Innominate Vein, Percutaneous Approach (ICD-10-PCS; 2017-02-12)
DX: A41.9 Sepsis, unspecified organism (principal); N18.6 End stage renal disease; I13.2 Hypertensive heart and chronic kidney disease with heart failure and with stage 5 chronic kidney disease, or end stage renal disease; I24.8 Other forms of acute ischemic heart disease; E11.22 Type 2 diabetes mellitus with diabetic chronic kidney disease; I42.9 Cardiomyopathy, unspecified; T82.856A Stenosis of peripheral vascular stent, initial encounter; I87.1 Compression of vein; N39.0 Urinary tract infection, site not specified; I27.2 Other secondary pulmonary hypertension; D64.9 Anemia, unspecified; E03.9 Hypothyroidism, unspecified; E78.5 Hyperlipidemia, unspecified; G89.29 Other chronic pain; I50.9 Heart failure, unspecified; K21.9 Gastro-esophageal reflux disease without esophagitis; M16.10 Unilateral primary osteoarthritis, unspecified hip; E21.3 Hyperparathyroidism, unspecified; F32.9 Major depressive disorder, single episode, unspecified; R09.89 Other specified symptoms and signs involving the circulatory and respiratory systems; Z82.49 Family history of ischemic heart disease and other diseases of the circulatory system; Z85.3 Personal history of malignant neoplasm of breast; Z86.73 Personal history of transient ischemic attack (TIA), and cerebral infarction without residual deficits; Z90.710 Acquired absence of both cervix and uterus; Z90.13 Acquired absence of bilateral breasts and nipples; Z99.2 Dependence on renal dialysis; Z98.49 Cataract extraction status, unspecified eye
CPT/HCPCS: 36415; 36901; 36907; 71010; 72195; 73502; 74176; 76937; 80048; 80061; 80076; 81001; 82962; 83605; 83690; 84484; 85007; 85025; 85027; 85610; 87040; 87086; 87186; 93005; 93306; 93971; 96374; 96375; 99152; 99153; C1758; C1769; C1892; C1894; J1170; J1644; J1815; J2250; J2270; J2405; J2543; J3010; J3490; 97116; 97530; 99285-25

== ENCOUNTER 2017-02-20 04:35 | Inpatient (IN) | payer MEDICARE, OTHER ==
[~2017-02-20] VITALS: Ht 154.9 cm; Wt 83.5 kg
[~2017-02-20 04:35] MED LIST changes: +AMOX1TAB10 PO
--- NOTE | 2017-02-20 04:59 | PHYS DOC ---
Past Medical History Past Medical History: Cancer, CHF, CVA, Diabetes-Type II, GERD, Hypertension, Hypothyroid, Renal Failure, Additional Disease, Other Additional Past Medical Histor: Breast cancer, dialysis Past Surgical History: Cancer Surgery, Cholecystectomy, Hysterectomy, Other Additional Past Surgical Histo: Fistula RUE, Bilateral mastectomy, THYROIDECTOMY, HERNIA Alcohol Use: None Drug Use: None Adult General Chief Complaint Chief Complaint: SHORTNESS OF BREATH HPI HPI Patient is a 81 year old female with a history of end-stage renal disease with dialysis Sunday and Sunday. Presents with complaints of shortness of air that is been going on for several days, patient denies any chest pain, neck pain, abdominal pain fevers, rashes, sick contacts, cough. Patient denies any dysuria symptoms Review of Systems Review of Systems Constitutional: Denies fever or chills [] Eyes: Denies change in visual acuity, redness, or eye pain [] HENT: Denies nasal congestion or sore throat [] Respiratory: Denies cough. Yes to shortness of breath Cardiovascular: No chest pain GI: Denies abdominal pain, nausea, vomiting, bloody stools or diarrhea [] : Denies dysuria or hematuria [] Musculoskeletal: Denies back pain or joint pain [] Integument: Denies rash or skin lesions [] Neurologic: Denies headache, focal weakness or sensory changes [] Allergies Allergies Allergies Coded Allergies Type Severity Reaction Last Updated Verified No Known Drug Allergies 04/13/14 No Physical Exam Physical Exam Constitutional: Well developed, well nourished, no acute distress, non-toxic appearance. [] HENT: Normocephalic, atraumatic, oropharynx moist, no oral exudates, nose normal. [] Eyes: PERRLA, EOMI, conjunctiva normal, no discharge. [] Neck: Normal range of motion, no tenderness, supple, no stridor. [] Cardiovascular:Heart rate regular rhythm, no murmur [] Lungs & Thorax: Bilateral breath sounds clear to auscultation [] Abdomen: Bowel sounds normal, soft, no tenderness, no masses, no pulsatile masses. [] Skin: Warm, dry, no erythema, no rash. [] Back: No tenderness, no CVA tenderness. [] Extremities: No tenderness, no cyanosis, no DVT, ROM intact, no edema. Fistula and right upper arm with no signs of infection or thrombus, palpable thrill Neurologic: Alert and oriented X 3, normal motor function, no focal deficits noted. [] Psychologic: Affect normal, judgement normal, mood normal. [] Current Patient Data Vital Signs Vital Signs Date Time Temp Pulse Resp B/P (MAP) Pulse Ox O2 Delivery O2 Flow Rate FiO2 02/20/17 04:54 98.1 78 20 201/83 (122) 97 Room Air 98.1 Lab Values Laboratory Tests Test 02/20/17 05:18 White Blood Count 10.2 x10^3/uL (4.0-11.0) Red Blood Count 3.00 x10^6/uL (3.50-5.40) L Hemoglobin 9.8 g/dL (12.0-15.5) L Hematocrit 29.6 % (36.0-47.0) L Mean Corpuscular Volume 99 fL (79-100) Mean Corpuscular Hemoglobin 33 pg (25-35) Mean Corpuscular Hemoglobin Concent 33 g/dL (31-37) Red Cell Distribution Width 14.2 % (11.5-14.5) Platelet Count 156 x10^3/uL (140-400) Neutrophils (%) (Auto) 86 % (31-73) H Lymphocytes (%) (Auto) 4 % (24-48) L Monocytes (%) (Auto) 8 % (0-9) Eosinophils (%) (Auto) 2 % (0-3) Basophils (%) (Auto) 1 % (0-3) Neutrophils # (Auto) 8.7 x10^3uL (1.8-7.7) H Lymphocytes # (Auto) 0.4 x10^3/uL (1.0-4.8) L Monocytes # (Auto) 0.8 x10^3/uL (0.0-1.1) Eosinophils # (Auto) 0.2 x10^3/uL (0.0-0.7) Basophils # (Auto) 0.1 x10^3/uL (0.0-0.2) Platelet Estimate Pending Sodium Level 143 mmol/L (136-145) Potassium Level 5.2 mmol/L (3.5-5.1) H Chloride Level 103 mmol/L (98-107) Carbon Dioxide Level 30 mmol/L (21-32) Anion Gap 10 (6-14) Blood Urea Nitrogen 43 mg/dL (7-20) H Creatinine 7.8 mg/dL (0.6-1.0) H Estimated GFR (Cockcroft-Gault) 6.0 Glucose Level 59 mg/dL (70-99) L Calcium Level 9.3 mg/dL (8.5-10.1) Magnesium Level 2.4 mg/dL (1.8-2.4) Total Bilirubin 0.7 mg/dL (0.2-1.0) Direct Bilirubin 0.2 mg/dL (0.0-0.2) Aspartate Amino Transferase (AST) 19 U/L (15-37) Alanine Aminotransferase (ALT) 13 U/L (14-59) L Alkaline Phosphatase 80 U/L (46-116) Troponin I Quantitative 0.094 ng/mL (0.000-0.055) Total Protein 7.5 g/dL (6.4-8.2) Albumin 3.7 g/dL (3.4-5.0) Laboratory Tests 02/20/17 05:18 Laboratory Tests 02/20/17 05:18 EKG EKG 0438 A1, no STEMI, sinus rhythm[] Radiology/Procedures Radiology/Procedures One view portable chest x-ray read by me. Heart size is normal. No acute infiltrate is noted. No effusion. There may be some hilar fullness and vascular cephalization consistent with fluid overload/pulmonary edema.[] Course & Med Decision Making Course & Med Decision Making Pertinent Labs and Imaging studies reviewed. (See chart for details) Labs pending. Patient will be signed out to Dr. Mcdonald for final disposition pending reevaluation labs Labs evaluated. Troponin is slightly elevated, which is usual for her. I did note that her hemoglobin is usually in the mid 11 range and has drifted down to today 9.8. This may be dilutional. Chest x-ray does show some fluid in the lungs. Her potassium is mildly elevated but this will be taken care of with dialysis and does not currently require treatment. I visited the patient. Although her pulse ox is 100% on room air currently, the patient appears to be dyspneic at rest on the cart. Patient states that she has had extremity edema and she feels like she is in congestive heart failure. The patient has not had dialysis since Saturday 02/17. She makes a small amount of urine. I believe she is fluid overloaded. With her history of dyspnea with very mild exertion and even currently dyspnea at rest, I don't believe she is appropriate for discharge, we will admit her for dialysis today and reevaluate after she has dialysis. Patient is agreeable to that plan. I discussed the case with Dr. Contreras, who will admit the patient. I wrote bridge orders. I notified nephrology. [] Dragon Disclaimer Dragon Disclaimer This electronic medical record was generated, in whole or in part, using a voice recognition dictation system. Departure Departure Impression: Primary Impression: Congestive heart failure Additional Impressions: Dyspnea Elevated troponin Anemia Hyperkalemia Disposition: ADMITTED INPATIENT Admitting Physician: Morgan Contreras Condition: STABLE Referrals: NICHOLAS FAIRCHILD MD (PCP) Problem Qualifiers Isaías OLGUIN MD Feb 20, 2017 04:59 AYE MCDONALD MD Feb 20, 2017 06:26
[2017-02-20 05:34] LABS: BASO # 0.1 x10^3/uL (0.0-0.2); BASO % 1 % (0-3); EOS % 2 % (0-3); HEMATOCRIT 29.6 % (36.0-47.0); HEMOGLOBIN 9.8 g/dL (12.0-15.5); LYMPH # 0.4 x10^3/uL (1.0-4.8); LYMPH % 4 % (24-48); MEAN CORPUSCULAR HEMOGLOBIN 33 pg (25-35); MEAN CORPUSCULAR HGB CONC 33 g/dL (31-37); MEAN CORPUSCULAR VOLUME 99 fL (79-100); MONO % 8 % (0-9); NEUT % 86 % (31-73); PLATELET COUNT 156 x10^3/uL (140-400); RED CELL DISTRIBUTION WIDTH 14.2 % (11.5-14.5); WHITE BLOOD COUNT 10.2 x10^3/uL (4.0-11.0)
[2017-02-20 05:46] LABS: CALCIUM 9.3 mg/dL (8.5-10.1); CREATININE 7.8 mg/dL (0.6-1.0); POTASSIUM 5.2 mmol/L (3.5-5.1)
[2017-02-20 05:51] LABS: ALBUMIN 3.7 g/dL (3.4-5.0); DIRECT BILIRUBIN 0.2 mg/dL (0.0-0.2); MAGNESIUM 2.4 mg/dL (1.8-2.4); TOTAL BILIRUBIN 0.7 mg/dL (0.2-1.0); TOTAL PROTEIN 7.5 g/dL (6.4-8.2)
--- NOTE | 2017-02-20 07:01 | EKG ---
[facility] [address] [place] [address] Test Date: 2017-02-20 Test Time: 04:38:23 Pat Name: BRANT HALL Department: Room: 442 Gender: F [employer]: : 1935 Requested By: Isaías OLGIUN Order Number: [id number] Reading MD: Billy Bone Measurements Intervals Burton Rate: 81 P: 90 IA: 130 QRS: 6 QRSD: 84 T: -57 QT: 358 QTc: 416 Interpretive Statements SINUS RHYTHM LEFT VENTRICULAR HYPERTROPHY WITH STRAIN PATTERN Electronically Signed On 03-14-2017 16:02:28 CDT by Billy Bone
--- NOTE | 2017-02-20 07:20 | RAD ---
Portable chest, 02/20/2017: History: Dyspnea Comparison is made to a study from 02/10/2017. There are vascular stents projected over the right innominate vein region. The heart is enlarged. There is calcific plaquing and tortuosity of the thoracic aorta. The pulmonary vascularity is prominent. There is loss of vascular margination suggesting mild parahilar-perivascular pulmonary edema. There is no evidence of pleural fluid. IMPRESSION: Mild congestive heart failure.
[2017-02-20 08:37] LABS: % EOS 3 % (0-5); PLT ESTIMATE ADEQUATE (ADEQUATE)
[2017-02-20] MEDS ORDERED: IV NORMAL SALINE 1000ML BAG 1,000 ML IV PRN ×2 (08:49)
[2017-02-20] MEDS ORDERED: DIALYSIS PATIENT. MC PRN ×2 (09:00)
--- NOTE | 2017-02-20 09:12 | PDOC1 ---
History and Physical Date of Admission Date of Admission 02/20/17 Identification/Chief Complaint Chief Complaint SOB Problems: Source Source: Chart review, Patient History of Present Illness History of Present Illness Patient is a 81 year old female with a history of end-stage renal disease with dialysis Sunday and Sunday. Presents with complaints of shortness of air that is been going on for several days, patient denies any chest pain, neck pain, abdominal pain fevers, rashes, sick contacts, cough. Patient denies any dysuria symptoms , was discharged recently after several days hospitalization of arm swelling due to vein obstruction s/p angioplasty on plavix then developed hip pain , she has not missed dialysis and did not have SOB during recent admit Past Medical History Cardiovascular: CHF, HTN CENTRAL NERVOUS SYSTEM: TIA GI: GERD Heme/Onc: Anemia NOS, Cancer Hepatobiliary: No pertinent hx Psych: Depression Rheumatologic: No pertinent hx Infectious disease: No pertinent hx Renal/: Chronic renal failure Endocrine: Diabetes, Hyperparathyroidism Past Surgical History Past Surgical History: Appendectomy, Cholecystectomy, Cataract Removal, Mastectomy, Hysterectomy, Other Family History Family History: No Significant, Hypertension Social History Smoke: No ALCOHOL: none Drugs: None Current Problem List Problem List Problems Medical Problems: (1) Anemia Status: Acute (2) Congestive heart failure Status: Acute (3) Dyspnea Status: Acute (4) Elevated troponin Status: Acute (5) Hyperkalemia Status: Acute Current Medications Current Medications Current Medications Medications (Trade) Dose Ordered Sig/Sahil Start Time Stop Time Status Last Admin Dose Admin Dextrose (Dextrose 50%-Water Syringe) 12.5 gm PRN Q15MIN PRN 02/20/17 08:15 Info (PHARMACY MONITORING -- do not chart) 1 each PRN DAILY PRN 02/20/17 09:00 UNV Sodium Chloride 1,000 ml @ 400 mls/hr Q2H30M PRN 02/20/17 08:49 02/20/17 20:48 UNV Allergies Allergies Allergies Coded Allergies Type Severity Reaction Last Updated Verified No Known Drug Allergies 04/13/14 No ROS Review of System CONSTITUTIONAL: No fever or chills EYES: No recent changes SKIN: No rash or itching CARDIOVASCULAR: No chest pain, syncope, palpitations, or edema RESPIRATORY: +SOB , NO cough GASTROINTESTINAL: No nausea, vomiting or abdominal pain NEUROLOGICAL: No headaches or weakness ENDOCRINE: No cold or heat intolerance GENITOURINARY: No urgency or frequency of urination MUSCULOSKELETAL: usual back pain and joint pain LYMPHATICS: No enlarged lymph nodes PSYCHIATRIC: No anxiety or depression Physical Exam Physical Exam GEN.: No apparent distress. Alert and oriented. HEENT: Head is normocephalic, atraumatic NECK: Supple. LUNGS: few rales biaterally HEART: RRR, . Peripheral pulses intact ABDOMEN: Soft, nontender. Positive bowel sounds. EXTREMITIES: Without any cyanosis. NEUROLOGIC: Normal speech, normal tone PSYCHIATRIC: Normal affect, normal mood. SKIN: No ulcerations Vitals Vitals Vital Signs Date Time Temp Pulse Resp B/P (MAP) Pulse Ox O2 Delivery O2 Flow Rate FiO2 02/20/17 06:30 80 202/87 (125) 96 Room Air 02/20/17 05:45 19 02/20/17 04:54 98.1 98.1 Labs Labs Laboratory Tests Test 02/20/17 05:18 White Blood Count 10.2 x10^3/uL (4.0-11.0) Red Blood Count 3.00 x10^6/uL (3.50-5.40) Hemoglobin 9.8 g/dL (12.0-15.5) Hematocrit 29.6 % (36.0-47.0) Mean Corpuscular Volume 99 fL (79-100) Mean Corpuscular Hemoglobin 33 pg (25-35) Mean Corpuscular Hemoglobin Concent 33 g/dL (31-37) Red Cell Distribution Width 14.2 % (11.5-14.5) Platelet Count 156 x10^3/uL (140-400) Neutrophils (%) (Auto) 86 % (31-73) Lymphocytes (%) (Auto) 4 % (24-48) Monocytes (%) (Auto) 8 % (0-9) Eosinophils (%) (Auto) 2 % (0-3) Basophils (%) (Auto) 1 % (0-3) Neutrophils # (Auto) 8.7 x10^3uL (1.8-7.7) Lymphocytes # (Auto) 0.4 x10^3/uL (1.0-4.8) Monocytes # (Auto) 0.8 x10^3/uL (0.0-1.1) Eosinophils # (Auto) 0.2 x10^3/uL (0.0-0.7) Basophils # (Auto) 0.1 x10^3/uL (0.0-0.2) Segmented Neutrophils % 88 % (35-66) Lymphocytes % 2 % (24-48) Monocytes % 7 % (0-10) Eosinophils % 3 % (0-5) Platelet Estimate Adequate (ADEQUATE) Sodium Level 143 mmol/L (136-145) Potassium Level 5.2 mmol/L (3.5-5.1) Chloride Level 103 mmol/L (98-107) Carbon Dioxide Level 30 mmol/L (21-32) Anion Gap 10 (6-14) Blood Urea Nitrogen 43 mg/dL (7-20) Creatinine 7.8 mg/dL (0.6-1.0) Estimated GFR (Cockcroft-Gault) 6.0 Glucose Level 59 mg/dL (70-99) Calcium Level 9.3 mg/dL (8.5-10.1) Magnesium Level 2.4 mg/dL (1.8-2.4) Total Bilirubin 0.7 mg/dL (0.2-1.0) Direct Bilirubin 0.2 mg/dL (0.0-0.2) Aspartate Amino Transf (AST/SGOT) 19 U/L (15-37) Alanine Aminotransferase (ALT/SGPT) 13 U/L (14-59) Alkaline Phosphatase 80 U/L (46-116) Troponin I Quantitative 0.094 ng/mL (0.000-0.055) Total Protein 7.5 g/dL (6.4-8.2) Albumin 3.7 g/dL (3.4-5.0) Laboratory Tests Test 02/20/17 05:18 White Blood Count 10.2 x10^3/uL (4.0-11.0) Red Blood Count 3.00 x10^6/uL (3.50-5.40) Hemoglobin 9.8 g/dL (12.0-15.5) Hematocrit 29.6 % (36.0-47.0) Mean Corpuscular Volume 99 fL (79-100) Mean Corpuscular Hemoglobin 33 pg (25-35) Mean Corpuscular Hemoglobin Concent 33 g/dL (31-37) Red Cell Distribution Width 14.2 % (11.5-14.5) Platelet Count 156 x10^3/uL (140-400) Neutrophils (%) (Auto) 86 % (31-73) Lymphocytes (%) (Auto) 4 % (24-48) Monocytes (%) (Auto) 8 % (0-9) Eosinophils (%) (Auto) 2 % (0-3) Basophils (%) (Auto) 1 % (0-3) Neutrophils # (Auto) 8.7 x10^3uL (1.8-7.7) Lymphocytes # (Auto) 0.4 x10^3/uL (1.0-4.8) Monocytes # (Auto) 0.8 x10^3/uL (0.0-1.1) Eosinophils # (Auto) 0.2 x10^3/uL (0.0-0.7) Basophils # (Auto) 0.1 x10^3/uL (0.0-0.2) Segmented Neutrophils % 88 % (35-66) Lymphocytes % 2 % (24-48) Monocytes % 7 % (0-10) Eosinophils % 3 % (0-5) Platelet Estimate Adequate (ADEQUATE) Sodium Level 143 mmol/L (136-145) Potassium Level 5.2 mmol/L (3.5-5.1) Chloride Level 103 mmol/L (98-107) Carbon Dioxide Level 30 mmol/L (21-32) Anion Gap 10 (6-14) Blood Urea Nitrogen 43 mg/dL (7-20) Creatinine 7.8 mg/dL (0.6-1.0) Estimated GFR (Cockcroft-Gault) 6.0 Glucose Level 59 mg/dL (70-99) Calcium Level 9.3 mg/dL (8.5-10.1) Magnesium Level 2.4 mg/dL (1.8-2.4) Total Bilirubin 0.7 mg/dL (0.2-1.0) Direct Bilirubin 0.2 mg/dL (0.0-0.2) Aspartate Amino Transf (AST/SGOT) 19 U/L (15-37) Alanine Aminotransferase (ALT/SGPT) 13 U/L (14-59) Alkaline Phosphatase 80 U/L (46-116) Troponin I Quantitative 0.094 ng/mL (0.000-0.055) Total Protein 7.5 g/dL (6.4-8.2) Albumin 3.7 g/dL (3.4-5.0) VTE Prophylaxis Ordered VTE Prophylaxis Devices: Yes VTE Pharmacological Prophylaxi: Yes Assessment/Plan Assessment/Plan 1- SOB liely volume overload 2-anemia worse than usual check guaiac and iron studies 3-elevated troponin ask C.V to see her and recheck echo 4-ESRD on dialysis 5-DM II with hypoglycemia 6-DJD and osteoarthritis 7-hyperkalemia for dialysis today BRENDA PABON MD Feb 20, 2017 09:12
[2017-02-20] MEDS ORDERED: traZODone 50 MG TABLET. PO PRN (09:15)
[2017-02-20] MEDS ORDERED: traMADol 50 MG TABLET PO PRN (09:15)
[2017-02-20] MEDS: DEXTROSE 50% 25 GM / 50ML DISP.SYRIN. IV PRN ×2 (09:17→14:31)
[2017-02-20] MEDS ORDERED: DEXTROSE 50% 25 GM / 50ML DISP.SYRIN. IV PRN (09:30)
[2017-02-20] MEDS ORDERED: INSULIN DETEMIR 300 UNITS/3 ML INSULN.PEN. SQ SCH (10:00)
--- NOTE | 2017-02-20 11:29 | PDOC ---
Renal-Progress Notes Subjective Notes Notes SOB-JUST DISCHARGED SAT. NOW BACK IN WITH SOB History of Present Illness Hx of present illness ABOVE Vitals Vitals Vital Signs Date Time Temp Pulse Resp B/P (MAP) Pulse Ox O2 Delivery O2 Flow Rate FiO2 02/20/17 06:30 80 202/87 (125) 96 Room Air 02/20/17 05:45 19 02/20/17 04:54 98.1 98.1 Weight Weight [ ] Labs Labs Laboratory Tests Test 02/20/17 05:18 02/20/17 07:52 02/20/17 09:32 White Blood Count 10.2 x10^3/uL (4.0-11.0) Red Blood Count 3.00 x10^6/uL (3.50-5.40) Hemoglobin 9.8 g/dL (12.0-15.5) Hematocrit 29.6 % (36.0-47.0) Mean Corpuscular Volume 99 fL (79-100) Mean Corpuscular Hemoglobin 33 pg (25-35) Mean Corpuscular Hemoglobin Concent 33 g/dL (31-37) Red Cell Distribution Width 14.2 % (11.5-14.5) Platelet Count 156 x10^3/uL (140-400) Neutrophils (%) (Auto) 86 % (31-73) Lymphocytes (%) (Auto) 4 % (24-48) Monocytes (%) (Auto) 8 % (0-9) Eosinophils (%) (Auto) 2 % (0-3) Basophils (%) (Auto) 1 % (0-3) Neutrophils # (Auto) 8.7 x10^3uL (1.8-7.7) Lymphocytes # (Auto) 0.4 x10^3/uL (1.0-4.8) Monocytes # (Auto) 0.8 x10^3/uL (0.0-1.1) Eosinophils # (Auto) 0.2 x10^3/uL (0.0-0.7) Basophils # (Auto) 0.1 x10^3/uL (0.0-0.2) Segmented Neutrophils % 88 % (35-66) Lymphocytes % 2 % (24-48) Monocytes % 7 % (0-10) Eosinophils % 3 % (0-5) Platelet Estimate Adequate (ADEQUATE) Sodium Level 143 mmol/L (136-145) Potassium Level 5.2 mmol/L (3.5-5.1) Chloride Level 103 mmol/L (98-107) Carbon Dioxide Level 30 mmol/L (21-32) Anion Gap 10 (6-14) Blood Urea Nitrogen 43 mg/dL (7-20) Creatinine 7.8 mg/dL (0.6-1.0) Estimated GFR (Cockcroft-Gault) 6.0 Glucose Level 59 mg/dL (70-99) Calcium Level 9.3 mg/dL (8.5-10.1) Magnesium Level 2.4 mg/dL (1.8-2.4) Total Bilirubin 0.7 mg/dL (0.2-1.0) Direct Bilirubin 0.2 mg/dL (0.0-0.2) Aspartate Amino Transf (AST/SGOT) 19 U/L (15-37) Alanine Aminotransferase (ALT/SGPT) 13 U/L (14-59) Alkaline Phosphatase 80 U/L (46-116) Troponin I Quantitative 0.094 ng/mL (0.000-0.055) Total Protein 7.5 g/dL (6.4-8.2) Albumin 3.7 g/dL (3.4-5.0) Glucose (Fingerstick) 42 mg/dL (70-99) 146 mg/dL (70-99) Review of Systems Constitutional: yes: weakness, alert, oriented Ears/Nose/Throat: Yes: no symptom reported Eyes: Yes: no symptom reported Pulmonary: Yes dyspnea Cardiovascular: Yes orthopnea Gastrointestional: Yes: no symptom reported Genitourinary: Yes: no symptom reported Musculoskeletal: Yes: no symptom reported Skin: Yes no symptom reported Psychiatric/Neurological: Yes: no symptom reported Endocrine: Yes: no symptom reported Hematologic/Lymphatic: Yes: no symptom reported Physical Exam General Appearance: mild distress Skin: warm Respiratory: decreased breath sounds Heart: S1S2, RRR Abdomen: soft, bowel sounds present Genitourinary: bladder flat, no mass Extremities: pulses present, no edema, atrophy Neurology: alert, oriented Musculoskeletal: Osteoarthritis Assessment Assessment IMP VOLUME OVERLOAD CHF ESRD ANEMIA HTN DM II 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
[2017-02-20] MEDS: INSULIN ASPART 300 UNITS/3 ML INSULN.PEN SQ SCH ×2 (12:00→17:42)
--- NOTE | 2017-02-20 13:09 | PDOC2 ---
VEDA SPRING REFERENCE INVESTIGATOR 02/20/17 1309: CARDIAC CONSULT DATE OF CONSULT Date of Consult DATE: 02/20/17 TIME: 12:51 REASON FOR CONSULT Reason for Consult: SOA REFERRING PHYSICIAN Referring Physician: Diane SOURCE Source: Chart review, Patient HISTORY OF PRESENT ILLNESS HISTORY OF PRESENT ILLNESS This is a pleasant 81 yo female admitted for complains of SOA. Upon admission she was noted with elevated BP and acute CHF which is what she had on her recent admission. She is compliant with her medications and HD. SBP at home was in the 140s. Reports that her SOA started again Sunday and it has progressed. Presently feeling a little better after HD but her BP is elevated citing she has not taken her meds today. 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 FAMILY HISTORY Family History: Hypertension SOCIAL HISTORY Smoke: No ALCOHOL: none Drugs: None CURRENT MEDICATIONS CURRENT MEDICATIONS Current Medications Medications (Trade) Dose Ordered Sig/Sahil Route PRN Reason Start Time Stop Time Status Last Admin Dose Admin Dextrose (Dextrose 50%-Water Syringe) 12.5 gm PRN Q15MIN PRN IV SEE COMMENTS 02/20/17 08:15 02/20/17 09:17 ALLERGIES ALLERGIES: Coded Allergies: No Known Drug Allergies (Unverified , 04/13/14) ROS Review of System 14 point ROS evaluated with pertinent positives noted per HPI PHYSICAL EXAM General: Alert, Oriented X3, Cooperative, No acute distress HEENT: Atraumatic, Mucous membr. moist/pink Lungs: Clear to auscultation, Normal air movement Heart: Regular rate (SR), Normal S1, Normal S2, Other (2/6 systolic murmur to LLS) Abdomen: Soft, No tenderness Extremities: No cyanosis, Other (1+ bilateral LE pitting edema) Skin: No breakdown, No significant lesion Neuro: Normal speech, Sensation intact Psych/Mental Status: Mental status NL, Mood NL MUSCULOSKELETAL: Osteoarthritic changes both hands VITALS VITALS Vital Signs Date Time Temp Pulse Resp B/P (MAP) Pulse Ox O2 Delivery O2 Flow Rate FiO2 02/20/17 06:30 80 202/87 (125) 96 Room Air 02/20/17 05:45 19 02/20/17 04:54 98.1 98.1 LABS Lab: Laboratory Tests Test 02/20/17 05:18 02/20/17 07:52 02/20/17 09:32 White Blood Count 10.2 x10^3/uL (4.0-11.0) Red Blood Count 3.00 x10^6/uL (3.50-5.40) Hemoglobin 9.8 g/dL (12.0-15.5) Hematocrit 29.6 % (36.0-47.0) Mean Corpuscular Volume 99 fL (79-100) Mean Corpuscular Hemoglobin 33 pg (25-35) Mean Corpuscular Hemoglobin Concent 33 g/dL (31-37) Red Cell Distribution Width 14.2 % (11.5-14.5) Platelet Count 156 x10^3/uL (140-400) Neutrophils (%) (Auto) 86 % (31-73) Lymphocytes (%) (Auto) 4 % (24-48) Monocytes (%) (Auto) 8 % (0-9) Eosinophils (%) (Auto) 2 % (0-3) Basophils (%) (Auto) 1 % (0-3) Neutrophils # (Auto) 8.7 x10^3uL (1.8-7.7) Lymphocytes # (Auto) 0.4 x10^3/uL (1.0-4.8) Monocytes # (Auto) 0.8 x10^3/uL (0.0-1.1) Eosinophils # (Auto) 0.2 x10^3/uL (0.0-0.7) Basophils # (Auto) 0.1 x10^3/uL (0.0-0.2) Segmented Neutrophils % 88 % (35-66) Lymphocytes % 2 % (24-48) Monocytes % 7 % (0-10) Eosinophils % 3 % (0-5) Platelet Estimate Adequate (ADEQUATE) Sodium Level 143 mmol/L (136-145) Potassium Level 5.2 mmol/L (3.5-5.1) Chloride Level 103 mmol/L (98-107) Carbon Dioxide Level 30 mmol/L (21-32) Anion Gap 10 (6-14) Blood Urea Nitrogen 43 mg/dL (7-20) Creatinine 7.8 mg/dL (0.6-1.0) Estimated GFR (Cockcroft-Gault) 6.0 Glucose Level 59 mg/dL (70-99) Calcium Level 9.3 mg/dL (8.5-10.1) Magnesium Level 2.4 mg/dL (1.8-2.4) Total Bilirubin 0.7 mg/dL (0.2-1.0) Direct Bilirubin 0.2 mg/dL (0.0-0.2) Aspartate Amino Transf (AST/SGOT) 19 U/L (15-37) Alanine Aminotransferase (ALT/SGPT) 13 U/L (14-59) Alkaline Phosphatase 80 U/L (46-116) Troponin I Quantitative 0.094 ng/mL (0.000-0.055) Total Protein 7.5 g/dL (6.4-8.2) Albumin 3.7 g/dL (3.4-5.0) Glucose (Fingerstick) 42 mg/dL (70-99) 146 mg/dL (70-99) ECHOCARDIOGRAM ECHOCARDIOGRAM <Conclusion> The left ventricle is normal size. Left ventricle systolic function is mildly impaired. The Ejection Fraction is 40-45%. There is mild asymmetric left ventricular hypertrophy. There is mild global hypokinesis of the left ventricle. The left atrium is mild to moderately dilated. There is no significant aortic valvular stenosis. Doppler and Color Flow revealed mild to moderate aortic regurgitation. Doppler and Color Flow revealed mild to moderate mitral regurgitation. Doppler and Color Flow revealed moderate tricuspid regurgitation. The pulmonary artery systolic pressure is estimated at 50 mmHg. DATE: 02/12/17 1207 STRESS TEST STRESS TEST Conclusion 1. Regadenoson cardioisotope stress test did not show any evidence of ischemia or infarct. 2. Mild global left ventricular systolic dysfunction with ejection fraction calculated at 48%. 3. Low to intermediate risk for cardiac events. DATE: 12/01/15 1349 ASSESSMENT/PLAN ASSESSMENT/PLAN 1. Accelerated HTN 2. Acute on chronic diastolic/systolic CHF: refractory due to labile BP as well as possible episodes of hypoglycemic reactions but could not completely rule out ischemic process 3. DM2: noted with hypoglycemic reaction 4. HLP 5. Hypothyroidism 6. ESRD 7. Elevated troponin: initial at 0.09, possibly demand mediated but with his refractory CHF. EKG SR without acute changes, CP free 8. CAD; with possible PCI >5 yrs ago in [place]. Recommendations 1. Resume home BP meds and will adjust as warranted. Labetolol x1. 2. Trend troponin. Avoid hypoglycemic reaction 3. Continue with secondary prevention. 4. Given her refractory CHF and likely CAD with possible PCI in the past would recommend LHC 5. Discussed between repeating MPI vs LHC. Risks and benefits discussed and agreeable to proceed with LHC. Problems: AGA LIU MD 02/20/17 4485: CARDIAC CONSULT ALLERGIES ALLERGIES: Coded Allergies: No Known Drug Allergies (Unverified , 04/13/14) ASSESSMENT/PLAN ASSESSMENT/PLAN Patient seen and examined. Agree with ORACLE APPLICATION ARCHITECT's assessment and plan. Continue fluid removal with hemodialysis for acute on chronic systolic heart failure Resume home antihypertensive medications and titrate for better blood pressure control Agree with cardiac cath for tomorrow to rule out ischemic etiology for her CHF Thank you for your consultation. Problems: VEDA SPRING APRN Feb 20, 2017 13:09 AGA LIU MD Feb 20, 2017 17:45
[2017-02-20] MEDS ORDERED: LABETALOL 20 MG/4 ML DISP.SYRIN. IVP ONE (13:45)
[2017-02-20 14:00] VITALS: BP 179/74
[2017-02-20] MEDS ORDERED: IV DEXTROSE 5% - 0.9 % NACL 1,000 ML IV SCH (14:15)
[2017-02-20] MEDS: PANTOPRAZOLE 40 MG TABLET.DR. PO SCH (14:29)
[2017-02-20] MEDS: SERTRALINE 25 MG TABLET. PO SCH (14:29)
[2017-02-20] MEDS: SEVELAMER CARBONATE 800 MG TABLET. PO SCH ×2 (14:29→17:40)
[2017-02-20] MEDS: CLOPIDOGREL BISULFATE 75 MG TABLET PO SCH (14:30)
[2017-02-20] MEDS: ASPIRIN CHEWABLE 81 MG TABLET. PO SCH (14:31)
[2017-02-20] MEDS: amLODIPine BESYLATE 10 MG TABLET PO SCH (14:31)
[2017-02-20] MEDS: FOLIC/VIT B COMP W-C (RENAL) TABLET. PO SCH (14:31)
[2017-02-20] MEDS: LEVOTHYROXINE 75 MCG TABLET PO SCH (14:32)
[2017-02-20] MEDS: FUROSEMIDE 40 MG TABLET. PO SCH (14:32)
[2017-02-20] MEDS: CARVEDILOL 3.125 MG TABLET. PO SCH ×2 (14:32→17:00)
[2017-02-20] MEDS: LOSARTAN POTASSIUM 50 MG TABLET. PO SCH (14:33)
[2017-02-20 14:40] LABS: FOLATE 10.01 ng/ml (3.2-20.0)
[2017-02-20 14:45] LABS: % SAT IRON 30 % (15-34); IRON,SERUM 54 ug/dL (50-170)
[2017-02-20 19:45] VITALS: BP 129/58
[2017-02-20] MEDS: ATORVASTATIN CALCIUM 20 MG TABLET PO SCH (20:59)
[2017-02-20] MEDS ORDERED: DARBEPOETIN ALFA 60 MCG/0.3 ML DISP.SYRIN. SQ SCH (21:00)
[2017-02-20 23:41] VITALS: BP 140/70
[2017-02-21] VITALS (13 sets, daily range): BP systolic 128–171; BP diastolic 55–77
[2017-02-21] MEDS: oxyCODONE/APAP 5/325 1 TAB TABLET PO PRN ×2 (01:26→16:58)
[2017-02-21 06:15] LABS: HEMATOCRIT 28.6 % (36.0-47.0); HEMOGLOBIN 9.5 g/dL (12.0-15.5); RED BLOOD COUNT 2.89 x10^6/uL (3.50-5.40); RED CELL DISTRIBUTION WIDTH 14.9 % (11.5-14.5); WHITE BLOOD COUNT 7.7 x10^3/uL (4.0-11.0)
[2017-02-21 06:33] LABS: ALBUMIN 3.2 g/dL (3.4-5.0); ALBUMIN/GLOBULIN RATIO 0.8 (1.0-1.7); CALCIUM 8.8 mg/dL (8.5-10.1); CREATININE 5.3 mg/dL (0.6-1.0); GFR 9.4; POTASSIUM 5.1 mmol/L (3.5-5.1); TOTAL BILIRUBIN 0.8 mg/dL (0.2-1.0); TOTAL PROTEIN 7.3 g/dL (6.4-8.2)
[2017-02-21] MEDS: PANTOPRAZOLE 40 MG TABLET.DR. PO SCH (07:30)
[2017-02-21] MEDS: SEVELAMER CARBONATE 800 MG TABLET. PO SCH ×3 (07:30→16:55)
[2017-02-21] MEDS: INSULIN ASPART 300 UNITS/3 ML INSULN.PEN SQ SCH ×3 (08:00→17:30)
[2017-02-21] MEDS: FOLIC/VIT B COMP W-C (RENAL) TABLET. PO SCH ×2 (08:30→16:56)
[2017-02-21] MEDS: amLODIPine BESYLATE 10 MG TABLET PO SCH (08:31)
[2017-02-21] MEDS: LOSARTAN POTASSIUM 50 MG TABLET. PO SCH (08:32)
[2017-02-21] MEDS: SERTRALINE 25 MG TABLET. PO SCH (08:33)
[2017-02-21] MEDS: LEVOTHYROXINE 75 MCG TABLET PO SCH (08:33)
[2017-02-21] MEDS: CARVEDILOL 3.125 MG TABLET. PO SCH ×2 (08:33→17:57)
[2017-02-21] MEDS: CLOPIDOGREL BISULFATE 75 MG TABLET PO SCH (09:00)
--- NOTE | 2017-02-21 09:13 | PDOC ---
SUBJECTIVE Subjective better but still SOB , not back to baseline yet OBJECTIVE Vital Signs Vital Signs Date Time Temp Pulse Resp B/P (MAP) Pulse Ox O2 Delivery O2 Flow Rate FiO2 02/21/17 08:42 78 171/77 02/21/17 08:33 78 171/77 02/21/17 08:32 78 171/77 02/21/17 08:31 78 171/77 02/21/17 07:00 98.1 78 18 171/77 (108) 96 Room Air 98.1 02/21/17 03:38 98.4 76 18 133/60 (84) 95 Room Air 98.4 02/21/17 02:26 Room Air 02/20/17 23:41 98.7 76 18 140/70 (93) 97 Room Air 98.7 02/20/17 20:59 76 129/58 02/20/17 20:00 Nasal Cannula 02/20/17 19:45 99.6 76 18 129/58 (81) 97 Room Air 99.6 02/20/17 14:33 78 179/74 02/20/17 14:32 78 179/74 02/20/17 14:32 78 179/74 02/20/17 14:31 78 179/74 02/20/17 14:00 96.9 78 18 179/74 (109) 100 Nasal Cannula 2.0 96.9 PHYSICAL EXAM Physical Exam heart RRR abd soft and none tender lungs few scattered rales ext no edema ASSESSMENT/PLAN Assessment/Plan for left heart cath today, no further hypoglycemia , insulin on hold, will D/C D5W continue to monitor BS Problems: COMMENT Lab Laboratory Tests Test 02/20/17 09:32 02/20/17 13:50 02/20/17 13:53 02/20/17 15:26 Glucose (Fingerstick) 146 mg/dL (70-99) 48 mg/dL (70-99) 238 mg/dL (70-99) Iron Level 54 ug/dL (50-170) Total Iron Binding Capacity 178 ug/dL (250-450) Iron Saturation 30 % (15-34) Ferritin 1939 ng/mL (8-252) Troponin I Quantitative 0.122 ng/mL (0.000-0.055) Vitamin B12 Level 643 pg/mL (247-911) Serum Folate 10.01 ng/ml (3.2-20.0) Test 02/20/17 16:26 02/20/17 17:34 02/20/17 21:27 02/20/17 21:50 Glucose (Fingerstick) 277 mg/dL (70-99) 217 mg/dL (70-99) Magnesium Level 2.2 mg/dL (1.8-2.4) Troponin I Quantitative 0.120 ng/mL (0.000-0.055) Test 02/21/17 05:20 02/21/17 07:06 White Blood Count 7.7 x10^3/uL (4.0-11.0) Red Blood Count 2.89 x10^6/uL (3.50-5.40) Hemoglobin 9.5 g/dL (12.0-15.5) Hematocrit 28.6 % (36.0-47.0) Mean Corpuscular Volume 99 fL (79-100) Mean Corpuscular Hemoglobin 33 pg (25-35) Mean Corpuscular Hemoglobin Concent 33 g/dL (31-37) Red Cell Distribution Width 14.9 % (11.5-14.5) Platelet Count 140 x10^3/uL (140-400) Sodium Level 138 mmol/L (136-145) Potassium Level 5.1 mmol/L (3.5-5.1) Chloride Level 103 mmol/L (98-107) Carbon Dioxide Level 30 mmol/L (21-32) Anion Gap 5 (6-14) Blood Urea Nitrogen 29 mg/dL (7-20) Creatinine 5.3 mg/dL (0.6-1.0) Estimated GFR (Cockcroft-Gault) 9.4 BUN/Creatinine Ratio 5 (6-20) Glucose Level 178 mg/dL (70-99) Calcium Level 8.8 mg/dL (8.5-10.1) Total Bilirubin 0.8 mg/dL (0.2-1.0) Aspartate Amino Transf (AST/SGOT) 20 U/L (15-37) Alanine Aminotransferase (ALT/SGPT) 16 U/L (14-59) Alkaline Phosphatase 80 U/L (46-116) Troponin I Quantitative 0.112 ng/mL (0.000-0.055) Total Protein 7.3 g/dL (6.4-8.2) Albumin 3.2 g/dL (3.4-5.0) Albumin/Globulin Ratio 0.8 (1.0-1.7) Glucose (Fingerstick) 183 mg/dL (70-99) BRENDA PABON MD Feb 21, 2017 09:12
--- NOTE | 2017-02-21 09:23 | PDOC ---
MODERATE SEDATION ASSESSMENT RISKS/ALTERNATIVES Risks/Alternatives Risks and alternatives of this type of sedation and procedure discussed with: RISK/ALTERNATIVES: Patient H & P ON CHART H & P H & P on chart and reviewed for co-morbid conditions and appropriate labs. H&P ON CHART: Yes STATUS PREG STATUS ASSESSED: Yes MEDS/ALLERGIES REVIEWED Meds/Allergies Reviewed Medications and Allergies including time and route of recently administered narcotics and sedatives. MEDS/ALLERGIES REVIEWED: Yes ASA RATING ASA RATING: II AIRWAY ASSESSMENT Airway Assessment Airway patency, oral function limitations, presence of caps, crowns, dentures, partials, and ability to extend neck assessed. AIRWAY ASSESSMENT: Yes MALLAMPATI SCORE MALLAMPATI SCORE: II PRE-SEDATION ASSESSMENT PRE-SEDATION ASSESSMENT: Yes BRIDGETT SALINAS MD Feb 21, 2017 09:23
[2017-02-21] MEDS ORDERED: IODIXANOL 320 MG/ML 100 ML VIAL. ONE (09:29)
[2017-02-21] MEDS ORDERED: LIDOCAINE 2% 20 ML VIAL. ONE (09:30)
[2017-02-21] MEDS ORDERED: HEPARIN for ARTERIAL LINE 1,500 ML ONE (09:30)
[2017-02-21] MEDS ORDERED: MIDAZOLAM HCL/PF 2 MG/2 ML VIAL. ONE (09:45)
[2017-02-21] MEDS ORDERED: fentaNYL PF VIAL 100 MCG/2 ML VIAL ONE (09:46)
[2017-02-21] MEDS ORDERED: NITROGLYCERIN OINT 1 GM PACKET. ONE (09:59)
[2017-02-21] MEDS ORDERED: NITROGLYCERIN OINT 1 GM PACKET. TP ONE (10:00)
[2017-02-21] MEDS ORDERED: IODIXANOL 320 MG/ML 100 ML VIAL. IART ONE (10:15)
[2017-02-21] MEDS ORDERED: MIDAZOLAM HCL/PF 2 MG/2 ML VIAL. IV ONE (10:15)
[2017-02-21] MEDS ORDERED: fentaNYL PF VIAL 100 MCG/2 ML VIAL IV ONE (10:15)
[2017-02-21] MEDS ORDERED: LIDOCAINE 2% 20 ML VIAL. IJ ONE (10:15)
[2017-02-21] MEDS ORDERED: BIVALIRUDIN 250 MG VIAL. IV ONE ×2 (10:23→10:45)
[2017-02-21] MEDS ORDERED: CLOPIDOGREL BISULFATE 75 MG TABLET PO ONE (10:45)
[2017-02-21] MEDS ORDERED: NITROGLYCERIN 200 MCG/2 ML SYRINGE FOR CATH/VASC LAB. ICAR ONE (10:45)
[2017-02-21] MEDS ORDERED: IV NORMAL SALINE 1000ML BAG 1,000 ML IV SCH (11:03)
[2017-02-21] MEDS ORDERED: NITROGLYCERIN SUBLINGUAL 0.4 MG BOTTLE OF 25. SL PRN (11:15)
[2017-02-21] MEDS ORDERED: 0.9 % SODIUM CHLORIDE 10 ML DISP.SYRIN. IV PRN (11:15)
[2017-02-21] MEDS ORDERED: ACETAMINOPHEN 325 MG TABLET. PO PRN (11:15)
[2017-02-21] MEDS ORDERED: LIDOCAINE 2% 100 MG/5 ML SYRINGE. IV PRN (11:15)
[2017-02-21] MEDS ORDERED: ATROPINE 0.5 MG/5 ML DISP.SYRIN. IV PRN (11:15)
[2017-02-21] MEDS ORDERED: fentaNYL PF VIAL 100 MCG/2 ML VIAL IV PRN (11:15)
[2017-02-21] MEDS ORDERED: AMIODARONE 150 MG in IV DEXTROSE 5% 100 ML IV PRN (11:15)
--- NOTE | 2017-02-21 11:51 | PDOC ---
Renal-Progress Notes Subjective Notes Notes NONE History of Present Illness Hx of present illness NO CHANGE Vitals Vitals Vital Signs Date Time Temp Pulse Resp B/P (MAP) Pulse Ox O2 Delivery O2 Flow Rate FiO2 02/21/17 11:41 97.8 75 16 140/60 (86) 93 Room Air 97.8 02/21/17 11:04 2.0 Weight Weight [ ] Labs Labs Laboratory Tests Test 02/20/17 13:50 02/20/17 13:53 02/20/17 15:26 02/20/17 16:26 Iron Level 54 ug/dL (50-170) Total Iron Binding Capacity 178 ug/dL (250-450) Iron Saturation 30 % (15-34) Ferritin 1939 ng/mL (8-252) Troponin I Quantitative 0.122 ng/mL (0.000-0.055) Vitamin B12 Level 643 pg/mL (247-911) Serum Folate 10.01 ng/ml (3.2-20.0) Glucose (Fingerstick) 48 mg/dL (70-99) 238 mg/dL (70-99) 277 mg/dL (70-99) Test 02/20/17 17:34 02/20/17 21:27 02/20/17 21:50 02/21/17 05:20 Magnesium Level 2.2 mg/dL (1.8-2.4) Glucose (Fingerstick) 217 mg/dL (70-99) Troponin I Quantitative 0.120 ng/mL (0.000-0.055) 0.112 ng/mL (0.000-0.055) White Blood Count 7.7 x10^3/uL (4.0-11.0) Red Blood Count 2.89 x10^6/uL (3.50-5.40) Hemoglobin 9.5 g/dL (12.0-15.5) Hematocrit 28.6 % (36.0-47.0) Mean Corpuscular Volume 99 fL (79-100) Mean Corpuscular Hemoglobin 33 pg (25-35) Mean Corpuscular Hemoglobin Concent 33 g/dL (31-37) Red Cell Distribution Width 14.9 % (11.5-14.5) Platelet Count 140 x10^3/uL (140-400) Sodium Level 138 mmol/L (136-145) Potassium Level 5.1 mmol/L (3.5-5.1) Chloride Level 103 mmol/L (98-107) Carbon Dioxide Level 30 mmol/L (21-32) Anion Gap 5 (6-14) Blood Urea Nitrogen 29 mg/dL (7-20) Creatinine 5.3 mg/dL (0.6-1.0) Estimated GFR (Cockcroft-Gault) 9.4 BUN/Creatinine Ratio 5 (6-20) Glucose Level 178 mg/dL (70-99) Calcium Level 8.8 mg/dL (8.5-10.1) Total Bilirubin 0.8 mg/dL (0.2-1.0) Aspartate Amino Transf (AST/SGOT) 20 U/L (15-37) Alanine Aminotransferase (ALT/SGPT) 16 U/L (14-59) Alkaline Phosphatase 80 U/L (46-116) Total Protein 7.3 g/dL (6.4-8.2) Albumin 3.2 g/dL (3.4-5.0) Albumin/Globulin Ratio 0.8 (1.0-1.7) Test 02/21/17 07:06 Glucose (Fingerstick) 183 mg/dL (70-99) Review of Systems Constitutional: yes: weakness, alert, oriented Ears/Nose/Throat: Yes: no symptom reported Eyes: Yes: no symptom reported Pulmonary: Yes dyspnea Cardiovascular: Yes orthopnea Gastrointestional: Yes: no symptom reported Genitourinary: Yes: no symptom reported Musculoskeletal: Yes: no symptom reported Skin: Yes no symptom reported Psychiatric/Neurological: Yes: no symptom reported Endocrine: Yes: no symptom reported Hematologic/Lymphatic: Yes: no symptom reported Physical Exam General Appearance: mild distress Skin: warm Respiratory: decreased breath sounds Heart: S1S2, RRR Abdomen: soft, bowel sounds present Genitourinary: bladder flat, no mass Extremities: pulses present, no edema, atrophy Neurology: alert, oriented Musculoskeletal: Osteoarthritis Assessment Assessment IMP CAD-OSTIAL LESION ON LHC VOLUME OVERLOAD CHF ESRD ANEMIA HTN DM II 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
--- NOTE | 2017-02-21 12:09 | EKG ---
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
--- NOTE | 2017-02-21 14:11 | CARD ---
APPROVED REPORT Procedures Left heart catheterization. Selective coronary angiogram. Bare metal stent to the ostium of the right coronary artery. The patient is an 81-year-old female with a history of coronary artery disease. Patient has had multi ple admissions for heart failure and remains on hemodialysis for end-stage renal disease. Catheteriza tion was recommended secondary to recurrent episodes of heart failure and atypical chest pain. Risks and benefits were discussed with the patient. She has agreed to proceed. After informed consent was obtained the patient was brought to the heart catheterization lab. The are a of the right femoral artery was prepared in the usual manner with Betadine, sterile draping and loc al anesthetic. An 18-gauge needle was used to enter the right femoral artery, a wire placed and a 6 F rench sheath placed over the wire. A 6 Serbian JL4 diagnostic catheter was used to engage the left cor onary system and sequential injections in various views were obtained. A 6 Serbian Santiago diagnostic catheter attempted to engage the right coronary artery but had significant damping and was removed. A 6 Serbian JR4 diagnostic catheter was then used for an ostial injection of the right coronary artery which showed a greater than 80-85% lesion. This catheter was removed. A pigtail catheter was advance d to the ascending aorta and the left ventricle. Pressures were obtained. No left ventricular was pe rformed. Pullback pressures were measured. The catheter was removed. After review of the patient's co ronary anatomy it was found that she had an ostial right coronary artery lesion. We proceeded to rev ascularize the lesion. Angiomax as per protocol was administered. A 6 Serbian JR4 guide with side holes was used to engage th e right coronary system. 2000 mics of intracoronary nitroglycerin were administered with no resolutio n of the patient's lesion. The lesion was crossed with a PT choice wire. Predilation was with a 2.5 x 15 trek balloon with one inflation at 6 chaparro for 12 seconds. A 3.0 x 12 [employer] vision bare metal s tent was then deployed initially with one inflation at 16 chaparro for 15 seconds. Then a more proximal an d then a ostial root inflation was performed at 17 chaparro for 5 seconds each. Residual lesion was 0%. T he wire and guiding system were removed from the patient. Injection of the sheath showed normal plac ement. The sheath was removed and sealed with an Angio-Seal product. The patient was then moved to [facility] in stable condition. Findings. Hemodynamics. LV pressure 140/26, aortic root pressure of 146/90. Coronaries. Left main. The left main was a normal-size vessel with no lesions. Left anterior descending. The LAD was a moderate-sized vessel with normal distribution. It had a mid 10% lesion and a distal 10% lesion. There was also vascular blushing in the area of the septum with p robable arteriovenous shunting. Left circumflex. The left circumflex was nondominant. It has a mid 15% lesion and distal small vessel disease. Right coronary artery. Right coronary was a dominant vessel. It had an ostial greater than 80% lesion and a distal 15% lesion. <Conclusion> Severe single-vessel coronary artery disease with an ostial greater than 80% right coronary lesion. Successful bare metal stenting of the ostial lesion. Mild coronary artery disease in the left system. Vascular blushing in the area of the septum with probable arteriovenous shunting.
[2017-02-21] MEDS: ASPIRIN CHEWABLE 81 MG TABLET. PO SCH (16:54)
[2017-02-21] MEDS: FUROSEMIDE 40 MG TABLET. PO SCH (16:58)
[2017-02-21] MEDS: ATORVASTATIN CALCIUM 20 MG TABLET PO SCH (21:58)
[2017-02-22 02:43] VITALS: BP 163/82
[2017-02-22] MEDS: oxyCODONE/APAP 5/325 1 TAB TABLET PO PRN (03:32)
[2017-02-22 05:08] LABS: HEMATOCRIT 27.9 % (36.0-47.0); RED BLOOD COUNT 2.79 x10^6/uL (3.50-5.40); RED CELL DISTRIBUTION WIDTH 14.6 % (11.5-14.5); WHITE BLOOD COUNT 7.4 x10^3/uL (4.0-11.0)
[2017-02-22 05:44] LABS: CALCIUM 8.8 mg/dL (8.5-10.1); CREATININE 6.7 mg/dL (0.6-1.0); GFR 7.2; POTASSIUM 5.4 mmol/L (3.5-5.1)
[2017-02-22] MEDS: LEVOTHYROXINE 75 MCG TABLET PO SCH (06:19)
--- NOTE | 2017-02-22 06:59 | EKG ---
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
[2017-02-22 07:00] VITALS: BP 155/71
[2017-02-22] MEDS ORDERED: CLOPIDOGREL BISULFATE 75 MG TABLET PO SCH (08:00)
[2017-02-22] MEDS: PANTOPRAZOLE 40 MG TABLET.DR. PO SCH (08:36)
[2017-02-22] MEDS: SEVELAMER CARBONATE 800 MG TABLET. PO SCH ×3 (08:36→16:30)
[2017-02-22] MEDS: FUROSEMIDE 40 MG TABLET. PO SCH (08:46)
[2017-02-22] MEDS: ASPIRIN CHEWABLE 81 MG TABLET. PO SCH (08:47)
[2017-02-22] MEDS: CLOPIDOGREL BISULFATE 75 MG TABLET PO SCH (08:47)
[2017-02-22] MEDS: SERTRALINE 25 MG TABLET. PO SCH (08:47)
[2017-02-22] MEDS: INSULIN ASPART 300 UNITS/3 ML INSULN.PEN SQ SCH ×3 (08:52→17:00)
[2017-02-22] MEDS: amLODIPine BESYLATE 10 MG TABLET PO SCH (09:00)
[2017-02-22] MEDS: LOSARTAN POTASSIUM 50 MG TABLET. PO SCH (09:00)
--- NOTE | 2017-02-22 09:11 | PDOC ---
SUBJECTIVE Subjective episode of left flank pain this AM , feels better now, cath noted OBJECTIVE Vital Signs Vital Signs Date Time Temp Pulse Resp B/P (MAP) Pulse Ox O2 Delivery O2 Flow Rate FiO2 02/22/17 07:00 98.8 73 24 155/71 (99) 96 Room Air 98.8 02/22/17 04:35 18 97 Room Air 02/22/17 03:32 20 97 Room Air 02/22/17 02:43 98.6 77 20 163/82 (109) 97 Room Air 98.6 02/21/17 22:49 98.6 70 20 134/60 (84) 95 Room Air 98.6 02/21/17 21:59 74 128/55 02/21/17 20:00 Room Air 02/21/17 19:55 98.7 74 128/55 (79) 96 Room Air 98.7 02/21/17 17:58 3.0 02/21/17 17:57 73 148/70 02/21/17 16:58 18 100 Room Air 02/21/17 16:55 73 148/70 02/21/17 15:17 98.4 71 18 148/70 (96) 93 Nasal Cannula 3.0 98.4 02/21/17 14:17 72 140/60 (86) Nasal Cannula 3.0 02/21/17 13:45 72 140/64 (89) Nasal Cannula 3.0 02/21/17 13:17 72 137/63 (87) Nasal Cannula 3.0 02/21/17 12:47 72 18 148/61 (90) Nasal Cannula 3.0 02/21/17 12:17 72 18 154/74 (100) 98 Nasal Cannula 3.0 02/21/17 12:02 77 148/72 (97) 95 Nasal Cannula 3.0 02/21/17 11:47 75 02/21/17 11:41 97.8 75 16 140/60 (86) 93 Room Air 97.8 02/21/17 11:31 74 02/21/17 11:04 75 21 97 Nasal Cannula 2.0 02/21/17 11:01 17 95 Nasal Cannula 2.0 02/21/17 10:00 80 171/79 PHYSICAL EXAM Physical Exam lungs clear heart RRR abd soft ext no edema ASSESSMENT/PLAN Assessment/Plan for dialysis today , if no further problems or pain home after dialysis, decrease lantus dose to 4 units only due to hypoglycemia and f/u soon in the office Problems: COMMENT Lab Laboratory Tests Test 02/21/17 17:15 02/21/17 21:56 02/22/17 04:30 02/22/17 07:58 Glucose (Fingerstick) 176 mg/dL (70-99) 195 mg/dL (70-99) 171 mg/dL (70-99) White Blood Count 7.4 x10^3/uL (4.0-11.0) Red Blood Count 2.79 x10^6/uL (3.50-5.40) Hemoglobin 9.0 g/dL (12.0-15.5) Hematocrit 27.9 % (36.0-47.0) Mean Corpuscular Volume 100 fL (79-100) Mean Corpuscular Hemoglobin 32 pg (25-35) Mean Corpuscular Hemoglobin Concent 32 g/dL (31-37) Red Cell Distribution Width 14.6 % (11.5-14.5) Platelet Count 140 x10^3/uL (140-400) Sodium Level 135 mmol/L (136-145) Potassium Level 5.4 mmol/L (3.5-5.1) Chloride Level 99 mmol/L (98-107) Carbon Dioxide Level 28 mmol/L (21-32) Anion Gap 8 (6-14) Blood Urea Nitrogen 37 mg/dL (7-20) Creatinine 6.7 mg/dL (0.6-1.0) Estimated GFR (Cockcroft-Gault) 7.2 Glucose Level 171 mg/dL (70-99) Calcium Level 8.8 mg/dL (8.5-10.1) BRENDA PABON MD Feb 22, 2017 09:11
--- NOTE | 2017-02-22 09:35 | PDOC3 ---
Discharge Summary* Date of Admission: Feb 20, 2017 Date of Discharge: Feb 22, 2017 Admitting Diagnosis Problems Medical Problems: (1) Anemia Status: Acute (2) Congestive heart failure Status: Acute (3) Dyspnea Status: Acute (4) Elevated troponin Status: Acute (5) Hyperkalemia Status: Acute Problems: Final Diagnosis 1. Acute on chronic diastolic/systolic CHF: 2-accelerated HTN 3. DM2: noted with hypoglycemic reaction decreased insulin 4. HLP 5. Hypothyroidism 6. ESRD 7. anemia 8. CAD S/P stent to ostial right coronary artery 9-DJD and hip pain Problems Medical Problems: (1) Anemia Status: Acute (2) Congestive heart failure Status: Acute (3) Dyspnea Status: Acute (4) Elevated troponin Status: Acute (5) Hyperkalemia Status: Acute CONSULTS Cardiology, Nephrology Procedures CXR, Cardiac cath and bare metal placed to right coronary artery ostial lesion 80% to 0 Brief Hospital Course Ms. Doyle is a 81 old [sex] who presented with [ ] Disposition/Orders: D/C to Home w/ HH CONDITION AT DISCHARGE: Improved Diet: Cardiac, Consistent Carbohydrate Scheduled Amlodipine Besylate (Amlodipine Besylate), 10 MG PO DAILY, (Reported) Amoxicillin/Potassium Clav (Amox Tr-K Clv 500-125 Mg Tab), 1 TAB PO BID Aspirin (Aspirin), 81 MG PO DAILY, (Reported) Atorvastatin Calcium (Lipitor), 20 MG PO HS, (Reported) Carvedilol (Carvedilol), 6.25 MG PO BIDWMEALS Clopidogrel Bisulfate (Plavix), 75 MG PO DAILY, (Reported) Esomeprazole Strontium (Esomeprazole Capsule), 40 MG PO DAILYAC, (Reported) Folic Acid/Vitamin B Comp W-C (Nephro-Manuel Tablet), 0.8 MG PO DAILY, (Reported) Furosemide (Lasix), 40 MG PO DAILY, (Reported) Hydralazine Hcl (Hydralazine Hcl), 100 MG PO TID, (Reported) Insulin Glargine,Hum.rec.anlog (Lantus Solostar), 20 UNIT SQ DAILYWBKFT Levothyroxine Sodium (Synthroid), 75 MCG PO DAILYAC, (Reported) Losartan Potassium (Cozaar), 100 MG PO DAILY, (Reported) Oxycodone/Apap 5-325 (Percocet 5-325 Mg Tablet), 1-2 TAB PO Q4-6HRS Sertraline Hcl (Sertraline Hcl), 25 MG PO DAILY Sevelamer Carbonate (Renvela), 800 MG PO TIDAC, (Reported) Scheduled PRN Tramadol Hcl (Tramadol Hcl), 1 TAB PO PRN Q6HRS PRN for PAIN Trazodone Hcl (Trazodone Hcl), 50 MG PO PRN QHS PRN for INSOMNIA FOLLOW UP APPOINTMENT: Dr. Reed in 1 week bring BS readings, take lantus only 4 units at HS, F/U CV 4 weeks Time Spent Total time spent with patient [] minutes for coordination of care, counseling, and education. BRENDA PABON MD Feb 22, 2017 09:35
[2017-02-22] MEDS ORDERED: INSU100I13 SQ (09:36)
--- NOTE | 2017-02-22 10:04 | PDOC ---
VEDA SPRING REPOSSESSOR 02/22/17 1004: CARDIO Progress Notes Date and Time Date of Service 02/22/2017 Time of Evaluation 0940 Subjective Subjective: No Chest Pain, No shortness of breath, No Palpitations, Other ( feels much better today) Vitals Vitals Vital Signs Date Time Temp Pulse Resp B/P (MAP) Pulse Ox O2 Delivery O2 Flow Rate FiO2 02/22/17 07:00 98.8 73 24 155/71 (99) 96 Room Air 98.8 02/21/17 17:58 3.0 Weight Weight [ ] Laboratory Labs Laboratory Tests Test 02/21/17 17:15 02/21/17 21:56 02/22/17 04:30 02/22/17 07:58 Glucose (Fingerstick) 176 mg/dL (70-99) 195 mg/dL (70-99) 171 mg/dL (70-99) White Blood Count 7.4 x10^3/uL (4.0-11.0) Red Blood Count 2.79 x10^6/uL (3.50-5.40) Hemoglobin 9.0 g/dL (12.0-15.5) Hematocrit 27.9 % (36.0-47.0) Mean Corpuscular Volume 100 fL (79-100) Mean Corpuscular Hemoglobin 32 pg (25-35) Mean Corpuscular Hemoglobin Concent 32 g/dL (31-37) Red Cell Distribution Width 14.6 % (11.5-14.5) Platelet Count 140 x10^3/uL (140-400) Sodium Level 135 mmol/L (136-145) Potassium Level 5.4 mmol/L (3.5-5.1) Chloride Level 99 mmol/L (98-107) Carbon Dioxide Level 28 mmol/L (21-32) Anion Gap 8 (6-14) Blood Urea Nitrogen 37 mg/dL (7-20) Creatinine 6.7 mg/dL (0.6-1.0) Estimated GFR (Cockcroft-Gault) 7.2 Glucose Level 171 mg/dL (70-99) Calcium Level 8.8 mg/dL (8.5-10.1) Review of Systems Constitutional: yes: weakness, alert, oriented Pulmonary: Yes dyspnea Physical Exam HEENT: Neck Supple W Full Motion Chest: Symmetric LUNGS: Clear to Auscultation Heart: S1S2, RRR (SR) Abdomen: Soft N/T Extremities: No Calf Tenderness, Other (trace-1+ bilateral LE edema) Neurology: alert, oriented, follow commands Other Exams right groin arteriotomy site intact, no swelling or erythema, neurovascular status to bilateral LE intact. Assessment Assessment 1. Accelerated HTN: much better controlled 2. Acute on chronic diastolic/systolic CHF: refractory with contributing ischemic process. Presently compensated 3. CAD; S/P PCI/BMS to RCA 4. DM2/HLP 5. Hypothyroidism 6. ESRD Recommendations 1. Continue with secondary prevention. DAPT with ASA/plavix. Avoid nexium or prilosec/omeprazole 2. Avoid hypoglycemic reaction. Encouraged cardiac rehab. Follow up in office in 4 weeks 3. Fluid off loading per HD 4. PT to see pt and provide exercise program prior to DC. Post cath instructions reviewed. AGA LIU MD 02/22/17 3552: CARDIO Progress Notes Assessment Assessment Patient seen and examined. Agree with LINOLEUM LAYER HELPER's assessment and plan. s/p PCI/stent to RCA, presently chest pain-free. Blood pressure better controlled. Continue hemodialysis per nephrology team. Follow-up with her office in 1 month. VEDA SPRING APRN Feb 22, 2017 10:04 AGA LIU MD Feb 22, 2017 17:08
[2017-02-22 11:00] VITALS: BP 170/79
--- NOTE | 2017-02-22 11:38 | PDOC ---
Renal-Progress Notes Subjective Notes Notes FEELING BETTER History of Present Illness Hx of present illness STABLE Vitals Vitals Vital Signs Date Time Temp Pulse Resp B/P (MAP) Pulse Ox O2 Delivery O2 Flow Rate FiO2 02/22/17 07:50 Room Air 02/22/17 07:00 98.8 73 24 155/71 (99) 96 98.8 02/21/17 17:58 3.0 Weight Weight [ ] Labs Labs Laboratory Tests Test 02/21/17 17:15 02/21/17 21:56 02/22/17 04:30 02/22/17 07:58 Glucose (Fingerstick) 176 mg/dL (70-99) 195 mg/dL (70-99) 171 mg/dL (70-99) White Blood Count 7.4 x10^3/uL (4.0-11.0) Red Blood Count 2.79 x10^6/uL (3.50-5.40) Hemoglobin 9.0 g/dL (12.0-15.5) Hematocrit 27.9 % (36.0-47.0) Mean Corpuscular Volume 100 fL (79-100) Mean Corpuscular Hemoglobin 32 pg (25-35) Mean Corpuscular Hemoglobin Concent 32 g/dL (31-37) Red Cell Distribution Width 14.6 % (11.5-14.5) Platelet Count 140 x10^3/uL (140-400) Sodium Level 135 mmol/L (136-145) Potassium Level 5.4 mmol/L (3.5-5.1) Chloride Level 99 mmol/L (98-107) Carbon Dioxide Level 28 mmol/L (21-32) Anion Gap 8 (6-14) Blood Urea Nitrogen 37 mg/dL (7-20) Creatinine 6.7 mg/dL (0.6-1.0) Estimated GFR (Cockcroft-Gault) 7.2 Glucose Level 171 mg/dL (70-99) Calcium Level 8.8 mg/dL (8.5-10.1) Review of Systems Constitutional: yes: weakness, alert, oriented Pulmonary: Yes dyspnea Physical Exam General Appearance: mild distress Skin: warm Respiratory: decreased breath sounds Heart: S1S2, RRR Abdomen: soft, bowel sounds present Genitourinary: bladder flat, no mass Extremities: pulses present, no edema, atrophy Neurology: alert, oriented, follow commands Musculoskeletal: Osteoarthritis Assessment Assessment IMP CAD-OSTIAL LESION ON LHC VOLUME OVERLOAD CHF ESRD ANEMIA HTN DM II 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
[2017-02-22 12:26] VITALS: BP 170/79
[2017-02-22] MEDS: CARVEDILOL 3.125 MG TABLET. PO SCH ×2 (12:26→17:00)
[2017-02-22] MEDS ORDERED: IV NORMAL SALINE 1000ML BAG 1,000 ML IV PRN (12:33)
[2017-02-22] MEDS ORDERED: ALBUMIN HUMAN 25% 200 ML IV PRN (12:45)
[2017-02-22] MEDS ORDERED: DIALYSIS PATIENT. MC PRN (12:45)
[2017-02-22] MEDS ORDERED: diphenhydrAMINE 50 MG/ML VIAL IV PRN ×2 (12:45)
== END 2017-02-22 18:15 | disposition home or self-care (01) | DRG 248 ==
LOC: ER 04:35 → 4 NORTH 06:15 → 2 NORTH 02-21 11:13
PROVIDERS: ADMIT Internal Medicine; ATTEND Internal Medicine
PROC: 02703DZ Dilation of Coronary Artery, One Artery with Intraluminal Device, Percutaneous Approach (ICD-10-PCS; principal; 2017-02-21)
PROC: B2111ZZ Fluoroscopy of Multiple Coronary Arteries using Low Osmolar Contrast (ICD-10-PCS; 2017-02-21)
PROC: 4A023N7 Measurement of Cardiac Sampling and Pressure, Left Heart, Percutaneous Approach (ICD-10-PCS; 2017-02-21)
PROC: 5A1D70Z Performance of Urinary Filtration, Intermittent, Less than 6 Hours Per Day (ICD-10-PCS; 2017-02-21)
PROC: 4A023N7 Measurement of Cardiac Sampling and Pressure, Left Heart, Percutaneous Approach (ICD-10-PCS; 2017-02-21)
DX: I50.43 Acute on chronic combined systolic (congestive) and diastolic (congestive) heart failure (principal); N18.6 End stage renal disease; E11.22 Type 2 diabetes mellitus with diabetic chronic kidney disease; E11.649 Type 2 diabetes mellitus with hypoglycemia without coma; I13.2 Hypertensive heart and chronic kidney disease with heart failure and with stage 5 chronic kidney disease, or end stage renal disease; D64.9 Anemia, unspecified; E03.9 Hypothyroidism, unspecified; E78.5 Hyperlipidemia, unspecified; E87.5 Hyperkalemia; I25.10 Atherosclerotic heart disease of native coronary artery without angina pectoris; K21.9 Gastro-esophageal reflux disease without esophagitis; M19.90 Unspecified osteoarthritis, unspecified site; Z82.49 Family history of ischemic heart disease and other diseases of the circulatory system; Z86.73 Personal history of transient ischemic attack (TIA), and cerebral infarction without residual deficits; Z95.5 Presence of coronary angioplasty implant and graft; Z99.2 Dependence on renal dialysis; E21.3 Hyperparathyroidism, unspecified; F32.9 Major depressive disorder, single episode, unspecified; Z85.9 Personal history of malignant neoplasm, unspecified; Z90.49 Acquired absence of other specified parts of digestive tract; Z90.710 Acquired absence of both cervix and uterus; Z90.13 Acquired absence of bilateral breasts and nipples; Z98.49 Cataract extraction status, unspecified eye; Z90.89 Acquired absence of other organs
CPT/HCPCS: 36415; 71010; 80048; 80053; 80076; 82607; 82728; 82746; 82962; 83540; 83550; 83735; 84484; 85007; 85025; 85027; 92928; 93005; 93458; 99152; 99153; C1725; C1769; C1771; C1877; C1887; C1892; G0269; J0583; J0881; J1644; J1815; J2250; J3010; J3490; J7042; 99285-25; J2001

== ENCOUNTER 2017-04-19 10:36 | Emergency (ER) | payer MEDICARE, OTHER ==
[~2017-04-19] VITALS: Ht 154.9 cm; Wt 78.5 kg
[2017-04-19] MEDS ORDERED: DIPHTH,PERTUSS(ACELL),TET TOX 0.5 ML DISP.SYRIN. VAX IM ONE (11:30)
--- NOTE | 2017-04-19 12:01 | RAD ---
Left knee, 3 views, 04/19/2017: History: Fall, pain No acute fracture or dislocation is identified. There is joint space narrowing with mild marginal spurring and subchondral sclerosis.. There is extensive chondrocalcinosis. There are mild degenerative changes at the patellofemoral articulation. There is a suggestion of a small joint effusion. Moderate subcutaneous is present anteriorly. Arterial calcifications are evident. IMPRESSION: 1. Moderate degenerative change with chondrocalcinosis. 2. No acute bony abnormality is detected.
--- NOTE | 2017-04-19 12:06 | RAD ---
Right wrist, 3 views, 04/19/2017: History: Fall, pain The bony structures are demineralized. There is moderate degenerative change at the radiocarpal articulation with chondrocalcinosis. There are mild degenerative changes at the first and second MCP joints and the IP joint of the thumb. Mild deformity of the fifth metacarpal is compatible with old trauma. No acute fracture or dislocation is identified. Arterial calcifications are present. IMPRESSION: 1. Demineralization. 2. Moderate degenerative changes. 3. No acute bony abnormality is detected.
--- NOTE | 2017-04-19 12:19 | RAD ---
CT of the head without contrast, 04/19/2017: History: Fall, pain, facial injury Comparison is made to a study from 10/29/2016. The ventricles are within normal limits in size. There is no shift of the midline structures. There is no evidence of acute intracranial hemorrhage or mass effect. There is a small unchanged lucency along the lateral aspect of the left basal ganglia compatible with an old infarct. No abnormal extra-axial fluid collection or mass is seen. IMPRESSION: No acute intracranial abnormality is detected. CT of the facial bones without contrast, 04/19/2017: Noncontrast scans were obtained with multiplanar reconstructions produced. No fracture is identified. The paranasal sinuses are clear. The orbital contents are unremarkable. IMPRESSION: No acute facial bone abnormality is detected. PQRS Compliance Statement: One or more of the following individualized dose reduction techniques were utilized for this examination: 1. Automated exposure control 2. Adjustment of the mA and/or kV according to patient size 3. Use of iterative reconstruction technique
--- NOTE | 2017-04-19 13:34 | RAD ---
CT cervical spine without IV contrast Indication: Trauma Technique: CT cervical spine without IV contrast with multiplanar reformats. Comparison: Previous study from 10/29/2016 Findings: There is straightening of the cervical spine which may be secondary to muscle spasm or positioning. No compression deformities. Atlantoaxial joint interval is preserved. The facet joints are in normal anatomic alignment. No acute fractures. There is multilevel intervertebral disc space narrowing with endplate sclerosis and small anterior and posterior osteophyte formation compatible with degenerative disc disease. No cervical adenopathy. 1.3 cm hypoattenuating right thyroid nodule. Mild bilateral atherosclerotic disease of the carotid bulbs, right more than left. Prevertebral soft tissues are within normal limits. Impression: 1. No acute fractures. 2. Multilevel degenerative disc disease with facet arthropathy. 3. Right thyroid lobe nodule. Nonemergent ultrasound thyroid may be obtained for further evaluation. PQRS Compliance Statement: One or more of the following individualized dose reduction techniques were utilized for this examination: 1. Automated exposure control 2. Adjustment of the mA and/or kV according to patient size 3. Use of iterative reconstruction technique
[2017-04-19 13:50] VITALS: BP 170/72
--- NOTE | 2017-04-19 14:11 | PHYS DOC ---
Past Medical History Past Medical History: Cancer, CHF, CVA, Diabetes-Type II, GERD, Hypertension, Hypothyroid, Renal Failure, TIA, Additional Disease, Other Additional Past Medical Histor: Breast cancer, dialysis T- Past Surgical History: Cancer Surgery, Cholecystectomy, Hysterectomy, Other Additional Past Surgical Histo: Fistula RUE, Bilateral mastectomy, THYROIDECTOMY, HERNIA Alcohol Use: None Drug Use: None Adult General Chief Complaint Chief Complaint: MECHANICAL FALL HPI HPI Patient is a 81 year old female with history of hypertension, diabetes type 2, CVA, renal insufficiency, who presents today complaining of falling yesterday at [employer]. She states she was stepping off a curb when she tripped and fell. Patient denies any loss of consciousness. She states she has a broken tooth, lip bruising, right wrist pain, left knee pain, and her neck feels uncomfortable. Patient denies any loss of consciousness when she fell. Review of Systems Review of Systems Constitutional: Denies fever or chills [] Eyes: Denies change in visual acuity, redness, or eye pain [] HENT: Lower lip bruising. Denies nasal congestion or sore throat [] Respiratory: Denies cough or shortness of breath [] Cardiovascular: No additional information not addressed in HPI [] GI: Denies abdominal pain, nausea, vomiting, bloody stools or diarrhea [] : Denies dysuria or hematuria [] Musculoskeletal: Neck discomfort, right wrist pain, left knee pain. Integument: Denies rash or skin lesions [] Neurologic: Denies headache, focal weakness or sensory changes [] All other systems were reviewed and found to be within normal limits, except as documented in this note. Current Medications Current Medications Current Medications Medications (Trade) Dose Ordered Sig/Sahil Start Time Stop Time Status Last Admin Dose Admin Diphtheria/ Tetanus/Acell Pertussis (Boostrix) 0.5 ml ONCE ONCE 04/19/17 11:30 04/19/17 11:31 DC 04/19/17 11:30 0.5 ML Allergies Allergies Allergies Coded Allergies Type Severity Reaction Last Updated Verified No Known Drug Allergies 04/13/14 No Physical Exam Physical Exam Constitutional: Well developed, well nourished, no acute distress, non-toxic appearance. [] HENT: Normocephalic, atraumatic, bilateral external ears normal, oropharynx moist, no oral exudates, nose normal. Lower right lip with bruising. Tooth #8 with a tiny fracture at the tip of the tooth. Eyes: PERRLA, EOMI, conjunctiva normal, no discharge. [] Neck: Normal range of motion, no tenderness, supple, no stridor. [] Cardiovascular:Heart rate regular rhythm, no murmur [] Lungs & Thorax: Bilateral breath sounds clear to auscultation [] Abdomen: Bowel sounds normal, soft, no tenderness, no masses, no pulsatile masses. [] Skin: Warm, dry, no erythema, no rash. [] Back: No tenderness, no CVA tenderness. [] Extremities: Right wrist with no obvious deformity. Tenderness on the dorsal aspect of the wrist, no scaphoid tenderness. Full range of motion to the right wrist. Adequate radial medial and ulnar sensation to the right hand. +2 right radial pulse. Cap refill less than 2 seconds the right upper extremity. Left knee with no obvious deformity. Tenderness diffusely throughout the knee. Slightly Limited range of motion to the knee but mostly due to age. +2 left pedal pulse. Cap refill less than 2 seconds the left toes. Neurologic: Alert and oriented X 3, normal motor function, normal sensory function, no focal deficits noted. [] Psychologic: Affect normal, judgement normal, mood normal. [] Current Patient Data Vital Signs Vital Signs Date Time Temp Pulse Resp B/P (MAP) Pulse Ox O2 Delivery O2 Flow Rate FiO2 04/19/17 13:50 78 98 04/19/17 11:04 98.6 18 174/74 (107) Room Air 98.6 EKG EKG [] Radiology/Procedures Radiology/Procedures []PROCEDURE: CT CERVICAL SPINE WO CONTRAST CT cervical spine without IV contrast Indication: Trauma Technique: CT cervical spine without IV contrast with multiplanar reformats. Comparison: Previous study from 10/29/2016 Findings: There is straightening of the cervical spine which may be secondary to muscle spasm or positioning. No compression deformities. Atlantoaxial joint interval is preserved. The facet joints are in normal anatomic alignment. No acute fractures. There is multilevel intervertebral disc space narrowing with endplate sclerosis and small anterior and posterior osteophyte formation compatible with degenerative disc disease. No cervical adenopathy. 1.3 cm hypoattenuating right thyroid nodule. Mild bilateral atherosclerotic disease of the carotid bulbs, right more than left. Prevertebral soft tissues are within normal limits. Impression: 1. No acute fractures. 2. Multilevel degenerative disc disease with facet arthropathy. 3. Right thyroid lobe nodule. Nonemergent ultrasound thyroid may be obtained for further evaluation. PQRS Compliance Statement: One or more of the following individualized dose reduction techniques were utilized for this examination: 1. Automated exposure control 2. Adjustment of the mA and/or kV according to patient size 3. Use of iterative reconstruction technique DICTATED and SIGNED BY: ALLISON FERNANDEZ DO DATE: 04/19/17 2121 CC: GUILLAUME LEWIS APRN; NON,STAFF; NICHOLAS FAIRCHILD MD ~ Course & Med Decision Making Course & Med Decision Making Pertinent Labs and Imaging studies reviewed. (See chart for details) Patient is in the ED with multiple pain complaints after falling yesterday. She is complaining of right wrist pain, left knee pain, lower lip bruising, broken tooth. CT of the head and face and neck were negative for any acute findings as interpreted by radiologist. X-rays of the left knee and right wrist were negative for any acute findings but noted for arthritis. Right thyroid lobe nodule noted on CT of cervical spine. Nonemergent ultrasound thyroid recommended as outpatient. Patient provided information to f/u with Dr. Fairchild for this. Will be discharged with instructions to follow-up with her orthopedic doctor. Provided return precautions and discharged in stable condition. Dragon Disclaimer Dragon Disclaimer This electronic medical record was generated, in whole or in part, using a voice recognition dictation system. Departure Departure Impression: Primary Impression: Fall from standing Additional Impressions: Facial contusion Tooth fracture Wrist sprain Left knee sprain Disposition: 01 HOME, SELF-CARE Condition: STABLE Referrals: NICHOLAS FAIRCHILD MD (PCP) LORIE MARLOW MD follow up in one week Patient Instructions: Arthritis, Degenerative-Brief, Contusion, Fall Prevention and Home Safety, Joint Sprain Additional Instructions: You were seen after falling yesterday. Your CT of the head face and neck are negative for any acute findings. Your x-rays of the left knee and right wrist are negative for any acute findings. Ice elevate the affected areas. Follow-up with the provided orthopedic doctor as well as your own primary care doctor in one week. Apply Neosporin to the bruised area on your lip. Return to the ED at any point you have concerning symptoms. You received a tetanus shot in the ED today. Your CT was noted for a Right thyroid lobe nodule. Nonemergent ultrasound thyroid may be obtained for further evaluation as out patient. Problem Qualifiers Primary Impression: Fall from standing Encounter type: initial encounter Qualified Codes: W19.XXXA - Unspecified fall, initial encounter Additional Impressions: Facial contusion Encounter type: initial encounter Qualified Codes: S00.83XA - Contusion of other part of head, initial encounter Tooth fracture Encounter type: initial encounter Fracture type: closed Qualified Codes: S02.5XXA - Fracture of tooth (traumatic), initial encounter for closed fracture Wrist sprain Encounter type: initial encounter Laterality: right Qualified Codes: S63.501A - Unspecified sprain of right wrist, initial encounter Left knee sprain Encounter type: initial encounter Involved ligament of knee: unspecified ligament Qualified Codes: S83.92XA - Sprain of unspecified site of left knee, initial encounter GUILLAUME LEWIS APRN Apr 19, 2017 14:11
== END 2017-04-19 14:25 | disposition home or self-care (01) ==
LOC: ER 10:36
DX: S02.5XXA Fracture of tooth (traumatic), initial encounter for closed fracture (principal); S83.92XA Sprain of unspecified site of left knee, initial encounter; S63.501A Unspecified sprain of right wrist, initial encounter; S00.83XA Contusion of other part of head, initial encounter; S00.531A Contusion of lip, initial encounter; M54.2 Cervicalgia; I13.0 Hypertensive heart and chronic kidney disease with heart failure and stage 1 through stage 4 chronic kidney disease, or unspecified chronic kidney disease; E11.22 Type 2 diabetes mellitus with diabetic chronic kidney disease; N18.9 Chronic kidney disease, unspecified; I50.9 Heart failure, unspecified; E89.0 Postprocedural hypothyroidism; K21.9 Gastro-esophageal reflux disease without esophagitis; Z90.13 Acquired absence of bilateral breasts and nipples; Z99.2 Dependence on renal dialysis; Z90.49 Acquired absence of other specified parts of digestive tract; Z86.73 Personal history of transient ischemic attack (TIA), and cerebral infarction without residual deficits; Z90.710 Acquired absence of both cervix and uterus; W01.0XXA Fall on same level from slipping, tripping and stumbling without subsequent striking against object, initial encounter; Y93.89 Activity, other specified; Y92.89 Other specified places as the place of occurrence of the external cause; Y99.8 Other external cause status
CPT/HCPCS: 70450; 70486; 72125; 73110; 73562; 90471; 90715; 99284-25

== ENCOUNTER 2017-05-01 14:41 | Emergency (ER) | payer MEDICARE, OTHER ==
[~2017-05-01] VITALS: Ht 154.9 cm; Wt 78.5 kg
--- NOTE | 2017-05-01 15:40 | PHYS DOC ---
Past Medical History Past Medical History: Cancer, CHF, CVA, Diabetes-Type II, GERD, Hypertension, Hypothyroid, Renal Failure, TIA, Additional Disease, Other Additional Past Medical Histor: Breast cancer, dialysis T- Past Surgical History: Cancer Surgery, Cholecystectomy, Hysterectomy, Other Additional Past Surgical Histo: Graft RUE, Bilateral mastectomy, THYROIDECTOMY , HERNIA Alcohol Use: None Drug Use: None Adult General Chief Complaint Chief Complaint: MECHANICAL FALL HPI HPI Patient is a 81 year old female who fell yesterday denies loss of consciousness but may have hit her head she thinks she may have gotten or had a low blood sugar at the time complaining of minimal pain to the left knee, right forearm right ribs. History of end-stage renal disease on dialysis and was dialyzed earlier today Review of Systems Review of Systems Constitutional: Denies fever or chills [] Eyes: Denies change in visual acuity, redness, or eye pain [] HENT: Denies nasal congestion or sore throat [] Respiratory: Denies cough or shortness of breath [] Cardiovascular: No additional information not addressed in HPI [] GI: Denies abdominal pain, nausea, vomiting, bloody stools or diarrhea [] : Denies dysuria or hematuria [] Musculoskeletal: Denies back pain or joint pain [] Integument: Denies rash or skin lesions [] Neurologic: Denies headache, focal weakness or sensory changes [] Endocrine: Denies polyuria or polydipsia [] All other systems were reviewed and found to be within normal limits, except as documented in this note. Allergies Allergies Allergies Coded Allergies Type Severity Reaction Last Updated Verified No Known Drug Allergies 04/13/14 No Physical Exam Physical Exam Constitutional: Well-developed well-nourished no acute distress, non-toxic appearance. [] HENT: Normocephalic, atraumatic, bilateral external ears normal, oropharynx moist, no oral exudates, nose normal. No external signs of trauma on the head exam [] Eyes: PERRLA, EOMI, conjunctiva normal, no discharge. [] Neck: Normal range of motion, no tenderness, supple, no stridor. No midline tenderness of the cervical spine; no midline tenderness to thoracic or lumbar spine[] Cardiovascular:Heart rate regular rhythm, no murmur [] Lungs & Thorax: Bilateral breath sounds clear to auscultation [questionable right rib tenderness] Abdomen: Bowel sounds normal, soft, no tenderness, no masses, no pulsatile masses. Skin: Warm, dry, no erythema, no rash. [] Back: No tenderness, no CVA tenderness. [] Extremities: No tenderness, no cyanosis, no clubbing, ROM intact, no edema. Tenderness to anterior left knee with no swelling or ecchymosis full range of motion able to do straight leg raises and mild tenderness to the right forearm but no swelling or deformity noted neurovascularly intact. Neurologic: Alert and oriented 4, normal motor and sensory function[] Psychologic: Affect normal, judgement normal, mood normal. [] Current Patient Data Vital Signs Vital Signs Date Time Temp Pulse Resp B/P (MAP) Pulse Ox O2 Delivery O2 Flow Rate FiO2 05/01/17 17:04 84 20 98 05/01/17 15:13 98.2 166/81 (109) Room Air 98.2 Lab Values Laboratory Tests Test 05/01/17 16:21 POC Hemoglobin 12.9 g/dL (12-15) POC Hematocrit 38 % (36-40) POC Sodium 142 mmol/L (135-145) POC Potassium 3.6 mmol/L (3.5-5.0) POC Chloride 106 mmol/L (98-110) POC Total CO2 24 mmol/L (23-32) Anion Gap 16 mmol/L (6-14) H POC Blood Urea Nitrogen 12 mg/dL (8-26) POC Creatinine 3.5 mg/dL (0.5-1.4) H Glucose Level 63 mg/dL (70-99) L POC Ionized Calcium (Vicki) 1.06 mmol/L (1.13-1.32) L Laboratory Tests 05/01/17 16:21 EKG EKG [] Radiology/Procedures Radiology/Procedures CT head negative for intracranial bleed per radiology report X-ray ribs chest x-ray no acute fracture pneumothorax radiology report reviewed Forearm x-ray negative for fracture dislocation radiology report reviewed Left knee x-ray[ negative for fracture or dislocation radiology report reviewed] Course & Med Decision Making Course & Med Decision Making Pertinent Labs and Imaging studies reviewed. (See chart for details) [ Dragon Disclaimer Dragon Disclaimer This electronic medical record was generated, in whole or in part, using a voice recognition dictation system. Departure Departure Impression: Primary Impression: Left knee sprain Additional Impressions: Closed head injury Fall End stage renal disease Disposition: HOME, SELF-CARE Condition: IMPROVED Referrals: NICHOLAS FAIRCHILD MD (PCP) Problem Qualifiers ARIELLE OGLESBY MD May 01, 2017 15:40
--- NOTE | 2017-05-01 16:06 | RAD ---
CT of the head without contrast, 05/01/2017: History: Fall, head injury Comparison is made to a study from 04/19/2017. There is mild cerebral atrophy. There is an unchanged small lucency along the lateral aspect of the left basal ganglia extending into the centrum semiovale, compatible with old infarct. The ventricles are within normal limits in size. There is no shift of the midline structures. There is no evidence of acute intracranial hemorrhage or mass effect. IMPRESSION: No acute intracranial abnormality is detected. PQRS Compliance Statement: One or more of the following individualized dose reduction techniques were utilized for this examination: 1. Automated exposure control 2. Adjustment of the mA and/or kV according to patient size 3. Use of iterative reconstruction technique
[2017-05-01 16:26] LABS: POTASSIUM ISTAT 3.6 mmol/L (3.5-5.0)
--- NOTE | 2017-05-01 16:31 | RAD ---
Indication: Pain after fall today. Technique: 2 views of the right forearm are submitted for review. No comparison is available. Findings: No fracture or osseous lesion is apparent. There is diffuse soft tissue swelling. There are vascular calcifications. Proximal radius is not well evaluated, given superimposition on the ulna. If there is concern for radial head fracture, elbow radiographs would be recommended. Impression: Soft tissue swelling. Negative for fracture.
--- NOTE | 2017-05-01 16:33 | RAD ---
Indication: Fall today, syncope. Technique: Right rib series with PA chest radiograph contains 4 images. Comparison chest radiograph is from February 20, 2017. Findings: The heart is enlarged. There is atheromatous disease in the thoracic aorta. Right subclavian stent is noted. There is no pneumothorax or pleural fluid. There is no airspace disease. A displaced rib fracture is not identified. There is bone demineralization diffusely limiting evaluation. Impression: Negative for displaced rib fracture. Cardiomegaly.
--- NOTE | 2017-05-01 16:34 | RAD ---
Indication: Fall today, pain Technique: 3 views of the left knee are submitted for review. No comparison is available. Findings: There is no fracture or dislocation. There is no joint effusion or soft tissue swelling. There is chondrocalcinosis. There is mild medial and lateral compartment narrowing. There is medial compartment spurring. There are vascular calcifications. Impression: Negative for fracture. Degenerative changes.
[2017-05-01 17:04] VITALS: BP 177/90
== END 2017-05-01 17:23 | disposition home or self-care (01) ==
LOC: ER 14:41
DX: S83.92XA Sprain of unspecified site of left knee, initial encounter (principal); S09.90XA Unspecified injury of head, initial encounter; M79.631 Pain in right forearm; I13.2 Hypertensive heart and chronic kidney disease with heart failure and with stage 5 chronic kidney disease, or end stage renal disease; N18.6 End stage renal disease; I50.9 Heart failure, unspecified; E11.22 Type 2 diabetes mellitus with diabetic chronic kidney disease; K21.9 Gastro-esophageal reflux disease without esophagitis; E89.0 Postprocedural hypothyroidism; Z86.73 Personal history of transient ischemic attack (TIA), and cerebral infarction without residual deficits; Z90.13 Acquired absence of bilateral breasts and nipples; Z90.49 Acquired absence of other specified parts of digestive tract; Z99.2 Dependence on renal dialysis; Z90.710 Acquired absence of both cervix and uterus; W18.39XA Other fall on same level, initial encounter; Y93.89 Activity, other specified; Y92.89 Other specified places as the place of occurrence of the external cause; Y99.8 Other external cause status
CPT/HCPCS: 36415; 70450; 71101; 73090; 73562; 80047; 85014; 85018; 99284-25

== ENCOUNTER 2017-05-02 10:18 | Inpatient (IN) | payer MEDICARE, OTHER ==
[~2017-05-02] VITALS: Ht 154.9 cm; Wt 80.3 kg
[2017-05-02] MEDS ORDERED: IV DEXTROSE 10% 1,000 ML IV ONE (10:45)
[2017-05-02] MEDS ORDERED: IV NORMAL SALINE 1000ML BAG 1,000 ML IV SCH ×2 (10:56→12:30)
[2017-05-02] MEDS ORDERED: 0.9 % SODIUM CHLORIDE 10 ML DISP.SYRIN. IV PRN (11:00)
[2017-05-02 11:13] LABS: BASO % 0 % (0-3); EOS % 1 % (0-3); HEMATOCRIT 36.9 % (36.0-47.0); HEMOGLOBIN 11.8 g/dL (12.0-15.5); LYMPH # 0.5 x10^3/uL (1.0-4.8); LYMPH % 5 % (24-48); MEAN CORPUSCULAR HEMOGLOBIN 32 pg (25-35); MEAN CORPUSCULAR HGB CONC 32 g/dL (31-37); MEAN CORPUSCULAR VOLUME 100 fL (79-100); MONO % 10 % (0-9); NEUT % 84 % (31-73); PLATELET COUNT 210 x10^3/uL (140-400); RED BLOOD COUNT 3.68 x10^6/uL (3.50-5.40); RED CELL DISTRIBUTION WIDTH 16.4 % (11.5-14.5); WHITE BLOOD COUNT 8.7 x10^3/uL (4.0-11.0)
--- NOTE | 2017-05-02 11:13 | PHYS DOC ---
Past Medical History Past Medical History: Cancer, CHF, CVA, Diabetes-Type II, GERD, Hypertension, Hypothyroid, Renal Failure, TIA, Additional Disease, Other Additional Past Medical Histor: Breast cancer, dialysis T- Past Surgical History: Cancer Surgery, Cholecystectomy, Hysterectomy, Other Additional Past Surgical Histo: Graft RUE, Bilateral mastectomy, THYROIDECTOMY , HERNIA Alcohol Use: None Drug Use: None Adult General Chief Complaint Chief Complaint: WEAKNESS/GENERALIZED HPI HPI Patient is a pleasant 81-year-old female who lives by her self and has a history of diabetes, end-stage renal disease, hypertension, breast cancer, hyperlipidemia, as, TIA, prior CVA, who presents with a near-syncopal episode/ fall injuring her face and her right ribs. This is now the second time she's been seen in our ER in the last 2 days. She fell last night and was seen here in the ER and disposition back home. This morning she was getting up again and fell forward this time injuring her bottom right lip. She still complains of right flank pain. She was very weak and dizzy when she fell and she was on the floor for approximate 4 hours before she was able to reach a phone call EMS. Upon EMS arrival they noted her Accu-Chek was 47 although patient was still mentating they attempted to feed her oral glucose challenge as well as a sandwich. Patient denies any chest pain, denies any abdominal pain, denies any focal neurologic deficits or weakness, just generalized fatigue and not feeling well along with flank pain is worse with breathing and movement and direct pressure over her lower abdomen on the right. Fevers, chills, vision changes or problems speaking. She only uses 20 units of Lantus daily regardless of her sugar levels. Since she lives alone she does her own meal preparation. Dr. Restrepo is her PCP, Dr. Contreras as her admitting physician she also sees Dr. Fuller and Dr. Greene for her nephrology issues Review of Systems Review of Systems Constitutional: Denies fever or chills [] Eyes: Denies change in visual acuity, redness, or eye pain [] HENT: Denies nasal congestion or sore throat [] Respiratory: Denies cough or shortness of breath [] Cardiovascular: No additional information not addressed in HPI [] GI: sHe does have complaint of right flank pain which she struck herself earlier in the lower abdomen with no nausea no vomiting no diarrhea no bloody stools. : Denies dysuria or hematuria [] Musculoskeletal: Patient is injured her back multiple times but nothing on this particular event. Integument: Denies rash or skin lesions [] Neurologic: Denies headache, focal weakness or sensory changes he says she generally feels weak with no specific focal neurologic deficit without[] Endocrine: Denies polyuria or polydipsia [] All other systems were reviewed and found to be within normal limits, except as documented in this note. Current Medications Current Medications Current Medications Medications (Trade) Dose Ordered Sig/Sahil Start Time Stop Time Status Last Admin Dose Admin Dextrose 1,000 ml @ 200 mls/hr 1X ONCE 05/02/17 10:45 05/02/17 15:44 05/02/17 10:58 200 MLS/HR Sodium Chloride (Normal Saline Flush) 10 ml QSHIFT PRN 05/02/17 11:00 Allergies Allergies Allergies Coded Allergies Type Severity Reaction Last Updated Verified No Known Drug Allergies 04/13/14 No Physical Exam Physical Exam Other vital signs on the chart patient noted to be hypertensive other than normal. Constitutional: Well developed, well nourished, he is uncomfortable complaining of right lower abdomen pain which is not new this is imaging treated yesterday patient is nondiaphoretic he's Wilow night 3[] HENT: Normocephalic, atraumatic, bilateral external ears normal, oropharynx dry mucous membranes, well fluctuated 3 mm lip laceration on the inside a right lower no active bleeding no active foreign body dentition is intact lip no oral exudates, nose normal. [] Eyes: PERRLA, EOMI, conjunctiva normal, no discharge. [] Neck: Normal range of motion, no tenderness, supple, no stridor. She has no midline tenderness to palpation [] Cardiovascular:Heart rate regular rhythm, no murmur [] Lungs & Thorax: Bilateral breath sounds clear to auscultation [] Abdomen: She has normoactive bowel sounds her abdomen is soft she is obese she has tenderness in the right lower flank area with no obvious signs of ecchymosis or trauma. Negative Ramirez Perez sign, negative Murray's or McBurney' s point tenderness palpation.[] Skin: Warm, dry, no erythema, no rash. [] Back: She has diffuse tenderness throughout her mid and lower back no midline tenderness no obvious signs of trauma Extremities: No tenderness, no cyanosis, no clubbing, ROM intact, no edema. [] Neurologic: Alert and oriented X 3, normal motor function, normal sensory function, no focal deficits noted. [] Psychologic: Affect normal, judgement normal, mood normal. [] Current Patient Data Vital Signs Vital Signs Date Time Temp Pulse Resp B/P (MAP) Pulse Ox O2 Delivery O2 Flow Rate FiO2 05/02/17 10:30 97.5 76 20 163/96 (118) 95 Room Air 97.5 Lab Values Laboratory Tests Test 05/02/17 10:25 05/02/17 11:00 05/02/17 12:09 Glucose (Fingerstick) 43 mg/dL (70-99) *L 138 mg/dL (70-99) H White Blood Count 8.7 x10^3/uL (4.0-11.0) Red Blood Count 3.68 x10^6/uL (3.50-5.40) Hemoglobin 11.8 g/dL (12.0-15.5) L Hematocrit 36.9 % (36.0-47.0) Mean Corpuscular Volume 100 fL (79-100) Mean Corpuscular Hemoglobin 32 pg (25-35) Mean Corpuscular Hemoglobin Concent 32 g/dL (31-37) Red Cell Distribution Width 16.4 % (11.5-14.5) H Platelet Count 210 x10^3/uL (140-400) Neutrophils (%) (Auto) 84 % (31-73) H Lymphocytes (%) (Auto) 5 % (24-48) L Monocytes (%) (Auto) 10 % (0-9) H Eosinophils (%) (Auto) 1 % (0-3) Basophils (%) (Auto) 0 % (0-3) Neutrophils # (Auto) 7.3 x10^3uL (1.8-7.7) Lymphocytes # (Auto) 0.5 x10^3/uL (1.0-4.8) L Monocytes # (Auto) 0.9 x10^3/uL (0.0-1.1) Eosinophils # (Auto) 0.1 x10^3/uL (0.0-0.7) Basophils # (Auto) 0.0 x10^3/uL (0.0-0.2) Sodium Level 143 mmol/L (136-145) Potassium Level 3.9 mmol/L (3.5-5.1) Chloride Level 105 mmol/L (98-107) Carbon Dioxide Level 22 mmol/L (21-32) Anion Gap 16 (6-14) H Blood Urea Nitrogen 21 mg/dL (7-20) H Creatinine 5.0 mg/dL (0.6-1.0) H Estimated GFR (Cockcroft-Gault) 10.1 Glucose Level 60 mg/dL (70-99) L Lactic Acid Level 1.3 mmol/L (0.4-2.0) Calcium Level 8.5 mg/dL (8.5-10.1) Magnesium Level 1.9 mg/dL (1.8-2.4) Total Bilirubin 0.6 mg/dL (0.2-1.0) Direct Bilirubin 0.3 mg/dL (0.0-0.2) H Aspartate Amino Transferase (AST) 22 U/L (15-37) Alanine Aminotransferase (ALT) 11 U/L (14-59) L Alkaline Phosphatase 98 U/L (46-116) Ammonia 12 mcmol/L (11-34) Creatine Kinase 90 U/L (26-192) Creatine Kinase MB (Mass) 2.9 ng/mL (0.0-3.6) Creatine Kinase MB Relative Index 3.2 % (0-4) Troponin I Quantitative 0.087 ng/mL (0.000-0.055) FN-Oij-H-Type Natriuretic Peptide > 43967 pg/mL (0-449) H Total Protein 7.6 g/dL (6.4-8.2) Albumin 3.3 g/dL (3.4-5.0) L Lipase 64 U/L (73-393) L Thyroid Stimulating Hormone (TSH) 3.206 uIU/mL (0.358-3.74) Laboratory Tests 05/02/17 11:00 Laboratory Tests 05/02/17 11:00 EKG EKG []EKG timed 10:29 AM read by me 10:30 AM 05/02/2017 demonstrates heart rate of 79 there's a P wave there were QRS is normal sinus rhythm there is normal PA interval 172, QRS width of 80 which is normal, QTC of 453 which is normal. Patient has not specific ST segment T-wave in flattening in the lateral leads which may represent ischemia or strain. Radiology/Procedures Radiology/Procedures [] [address] [place] [address] IMAGING REPORT Signed PATIENT: BRANT HALL ACCOUNT: [id number] : 1935 LOCATION: ER AGE: 81 SEX: F EXAM STATUS: REG ER ORD. PHYSICIAN: BECKA BORREGO MD REASON: weakness PROCEDURE: PORTABLE CHEST 1V Indication: Weakness, hypoglycemia. Fall yesterday. Technique: Upright portable chest radiograph was obtained. Comparison study is from one day earlier. Findings: The lungs are clear. The heart is upper limits of normal in size. Pulmonary vasculature may be mildly cephalized although this could be accentuated by portable technique. There is atheromatous disease in the thoracic aorta. Stent again is noted. Leads overlie the patient. Impression: Borderline cardiomegaly. There may be mild vascular congestion. DICTATED and SIGNED BY: MIRIAM AVILA MD DATE: 05/02/17 112 CC: BECKA BORREGO MD; NICHOLAS FAIRCHILD MD ~ IMAGING REPORT Signed PATIENT: BRANT HALL ACCOUNT: [id number] : 1935 LOCATION: ER AGE: 81 SEX: F EXAM STATUS: REG ER ORD. PHYSICIAN: BECKA BORREGO MD REASON: weakness and fall PROCEDURE: CT HEAD WO CONTRAST CT of the head without contrast, 05/02/2017: History: Fall, head injury Comparison is made to yesterday's study. A small old infarct is again noted along the lateral aspect of the left basal ganglia. The ventricles are within normal limits in size. There is no shift of the midline structures. There is no evidence of acute intracranial hemorrhage or mass effect. IMPRESSION: No acute intracranial abnormality is detected. PQRS Compliance Statement: One or more of the following individualized dose reduction techniques were utilized for this examination: 1. Automated exposure control 2. Adjustment of the mA and/or kV according to patient size 3. Use of iterative reconstruction technique DICTATED and SIGNED BY: ARETHA WAYNE MD DATE: 05/02/17 4836 CC: BECKA BORREGO MD; NICHOLAS FAIRCHILD MD ~ Course & Med Decision Making Course & Med Decision Making Pertinent Labs and Imaging studies reviewed. (See chart for details) []Patient presents with near syncope a fall from standing and hypoglycemia. Patient been seen multiple times in the ER for similar symptoms. Patient says she's had multiple evaluations to include a CAT scan yesterday her abdomen and pelvis ruling out any cutting intra-abdominal catastrophe. Patient may be from overuse of Lantus that she uses for her hyperglycemia. Patient but she lives alone does not eat well on occasion. Patient says she felt dizzy and fell forward. She denies any headache, focal neurologic deficits, shortness of breath or belly pain. Fingerstick glucose on arrival was 43. This is despite a glucose challenge and. Percentage in route. Patient was immediately given D10 at approximately 2 mL an hour to help provide her sugar bolus before she eats food. Patient in fluids given despite being on dialysis verbally completed yesterday. Patient had a CAT scan of the head, chest x-ray completed will attempt to look for her abdominal pelvis CT from yesterday. Impression to EKG was read and demonstrates some questionable ischemia in the lateral leads. Patient again is not having shortness breath or chest pain but may be contributing to her syncope. Patient did have an elevated proBNP greater than 15,000, troponin was also elevated at 0.087. This may be related to her creatinine which is greater than 5. At this point patient will be admitted to the hospital for continued management of her hypoglycemia. Diesel Engine Tester note: dr. Contreras discussed 11:39 AM Diesel Engine Tester called at of the service 11:45 AM Consult called back at Discussed the case I presented and they agreed with admission. Time of acceptance 11:45 AM "I have assessed this patient clinically and believe that their condition requires an admission to the hospital. After consulting the admitting physician about this case, they have asked that I admit this patient to their service as an inpatient based on the clinical presentation and my impression." Discussed hypogastric events likely low related to her Lantus we will hold and placed on a sliding scale this time. We also discussed positive troponin need for cardiology intervention, and continued management of her near syncope. I did attempt to locate CT scan abdomen and pelvis completed yesterday. This is reported to me by patient been force I was unable to discover any studies done on her with that regard. Travel completed today to ensure that there seem is not from some intra-abdominal catastrophe or bleeding. at this point patient will be brought in for rule out RI process, near-syncope evaluation, and treatment of her hyperglycemia. History: History, ST segment changes on EKG and risk factors and will troponin patient will be admitted to the hospital for continued evaluation. Highly suspicious 2 points moderately suspicious 1. slightly suspicious 0 point EKG: ST segment depression 2. nonspecific repolarization disturbance 1. normal 0 point Age: Greater than 65 2 points, 65-45 1., less than 45 years old 0 points Risk factors:> 3 risk factors 2 points, 1-2 risk factors one point, no risk factors 0 point Troponin: > 2 times normal 2 points, 1-2 times normal 1., normal limits 0 point Total score: Score % pts MACE/n MACE Policy 0-3 32% 1.9% 0.05% Discharge 4-6 51% 413/3136 13% 1.3% Observation Risk management 7-10 17% 518/1045 50% 2.8% Observation Treatment, CAG I spent approximately 45-50 minutes working and engaged directly in the patient care providing critical care evaluation this includes but not limited to time spent engaged in work directly related to the individual patients care. I spent time at the bedside, reviewing test results, discussing the case with staff, documenting the medical record and time spent with EMS discussing specific treatment issues when the patient presented and during his evaluation. Dragon Disclaimer Dragon Disclaimer This electronic medical record was generated, in whole or in part, using a voice recognition dictation system. Departure Departure Impression: Primary Impression: Fall from standing Additional Impressions: Syncope End stage renal disease Elevated troponin Abdominal wall contusion Hypoglycemia associated with diabetes Disposition: 09 ADMITTED INPATIENT Admitting Physician: Morgan Contreras Condition: GUARDED Referrals: NICHOLAS FAIRCHILD MD (PCP) Problem Qualifiers BECKA BORREGO MD May 02, 2017 11:13
--- NOTE | 2017-05-02 11:27 | RAD ---
Indication: Weakness, hypoglycemia. Fall yesterday. Technique: Upright portable chest radiograph was obtained. Comparison study is from one day earlier. Findings: The lungs are clear. The heart is upper limits of normal in size. Pulmonary vasculature may be mildly cephalized although this could be accentuated by portable technique. There is atheromatous disease in the thoracic aorta. Stent again is noted. Leads overlie the patient. Impression: Borderline cardiomegaly. There may be mild vascular congestion.
[2017-05-02 11:28] LABS: CALCIUM 8.5 mg/dL (8.5-10.1); GFR 10.1; POTASSIUM 3.9 mmol/L (3.5-5.1)
[2017-05-02 11:33] LABS: ALBUMIN 3.3 g/dL (3.4-5.0); DIRECT BILIRUBIN 0.3 mg/dL (0.0-0.2); MAGNESIUM 1.9 mg/dL (1.8-2.4); TOTAL BILIRUBIN 0.6 mg/dL (0.2-1.0); TOTAL PROTEIN 7.6 g/dL (6.4-8.2)
[2017-05-02 11:44] LABS: CKMB MASS 2.9 ng/mL (0.0-3.6); CREATINE KINASE 90 U/L (26-192)
--- NOTE | 2017-05-02 12:02 | RAD ---
CT of the head without contrast, 05/02/2017: History: Fall, head injury Comparison is made to yesterday's study. A small old infarct is again noted along the lateral aspect of the left basal ganglia. The ventricles are within normal limits in size. There is no shift of the midline structures. There is no evidence of acute intracranial hemorrhage or mass effect. IMPRESSION: No acute intracranial abnormality is detected. PQRS Compliance Statement: One or more of the following individualized dose reduction techniques were utilized for this examination: 1. Automated exposure control 2. Adjustment of the mA and/or kV according to patient size 3. Use of iterative reconstruction technique
[2017-05-02] MEDS ORDERED: IV NORMAL SALINE 1000ML BAG 1,000 ML IV STA (12:13)
[2017-05-02] MEDS ORDERED: fentaNYL PF VIAL 100 MCG/2 ML VIAL IV PRN (12:15)
[2017-05-02] MEDS ORDERED: ACETAMINOPHEN 325 MG TABLET. PO PRN (12:15)
[2017-05-02] MEDS ORDERED: ONDANSETRON PF 4 MG/2 ML VIAL. IV PRN (12:15)
--- NOTE | 2017-05-02 12:42 | EKG ---
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
--- NOTE | 2017-05-02 13:15 | RAD ---
CT of the abdomen and pelvis without contrast 05/02/2017 Indication: Right flank pain following fall Comparison study: CT of the abdomen and pelvis without contrast February 10, 2017. Technique: Multidetector CT imaging of the abdomen and pelvis was performed without the administration of IV contrast. Findings: Partially visualized lung bases demonstrate a small right pleural effusion and possible trace left effusion versus minimal atelectasis. Mild under lying atelectasis is noted on the right as well. The density is less than be expected for hemorrhage. There are probable nondisplaced fractures involving the posterior lateral right 10th and 11th ribs. The liver is grossly unremarkable. No perihepatic fluid is seen. Spleen is unremarkable. Mildly nodular appearance of the left adrenal gland is similar to comparison study. Renal atrophy and multifocal cysts/masses noted. The appearance is similar to comparison study. Some cysts are noted to be high attenuation likely reflect hemorrhagic cysts. There is a small amount of gas in the renal collecting system on the left. Gas is noted in the bladder. Correlate with recent catheterization. The appearance of the kidneys is similar to prior exam. No perinephric hematoma is identified. There is no evidence of bowel obstruction. No evidence of acute inflammatory change involving the visualized bowel is seen. Small bowel hernia again noted. Degenerative changes of the visualized thoracic and lumbosacral spine are stable. Likely hemangiomas within the L2 and T9 vertebral bodies are similar. Impression: 1. Probable nondisplaced fractures of the right 10th and 11th ribs. 2. Small right pleural effusion. 3. Gas in the bladder and left renal collecting system. The appearance is similar prior exam. Correlate with recent catheterization. Infection involving a gas forming organism or enteric fistula is considered less likely but not completely excluded
[2017-05-02 13:35] VITALS: BP 93/74
--- NOTE | 2017-05-02 14:23 | PDOC2 ---
ALEX MENDOZA POKER MACHINE ATTENDANT 05/02/17 1423: CARDIAC CONSULT DATE OF CONSULT Date of Consult DATE: 05/02/17 TIME: 14:04 REASON FOR CONSULT Reason for Consult: Elevated Troponin Syncope REFERRING PHYSICIAN Referring Physician: Dr. Gaitan SOURCE Source: Chart review, Patient HISTORY OF PRESENT ILLNESS HISTORY OF PRESENT ILLNESS This is an 81 yo female who presented secondary to fall. Patient reports multiple falls recently. Was seen in the ED and discharged home yesterday due to fall. In the middle of the night, patient go out of bed to use the restroom. Reports simply falling and was unable to catch herself. Denies any dizziness/ lightheadedness, chest pain, palpitations. Was on the floor for nearly 4 hours trying the get herself up. Eventually was able to get herself up to the edge of the bed to called for help. No LOC associated with these falls. Does report so LE edema yesterday evening and SOA today. Reports compliance with medications and HD (, , ). No recent fevers/illness. 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 in-stent stenosis of the right innominate vein, s/p PCI/stent to the RCA FAMILY HISTORY Family History: Hypertension SOCIAL HISTORY Social History Smoke: No ALCOHOL: none Drugs: None Lives: Alone CURRENT MEDICATIONS CURRENT MEDICATIONS Current Medications Medications (Trade) Dose Ordered Sig/Sahil Route PRN Reason Start Time Stop Time Status Last Admin Dose Admin Dextrose 1,000 ml @ 200 mls/hr 1X ONCE IV 05/02/17 10:45 05/02/17 15:44 05/02/17 10:58 Sodium Chloride 1,000 ml @ 1,000 mls/hr Q1H IV 05/02/17 10:56 05/02/17 11:55 DC 05/02/17 12:29 ALLERGIES ALLERGIES: Coded Allergies: No Known Drug Allergies (Unverified , 04/13/14) ROS Review of System 14 point ROS conducted with pertinent positives noted above in HPI. PHYSICAL EXAM General: Alert, Oriented X3, Cooperative, mild distress HEENT: Atraumatic, Mucous membr. moist/pink Lungs: Other (diminished throughout ) Heart: Regular rate, Normal S1, Normal S2 Abdomen: Soft, No tenderness Extremities: Other (trace bilateral LE edema ) Skin: No significant lesion Neuro: Normal speech, Sensation intact Psych/Mental Status: Mental status NL, Mood NL MUSCULOSKELETAL: Osteoarthritic changes both hands VITALS VITALS Vital Signs Date Time Temp Pulse Resp B/P (MAP) Pulse Ox O2 Delivery O2 Flow Rate FiO2 05/02/17 12:55 80 18 90 05/02/17 10:30 97.5 163/96 (118) Room Air 97.5 LABS Lab: Laboratory Tests Test 05/02/17 10:25 05/02/17 11:00 05/02/17 12:09 Glucose (Fingerstick) 43 mg/dL (70-99) 138 mg/dL (70-99) White Blood Count 8.7 x10^3/uL (4.0-11.0) Red Blood Count 3.68 x10^6/uL (3.50-5.40) Hemoglobin 11.8 g/dL (12.0-15.5) Hematocrit 36.9 % (36.0-47.0) Mean Corpuscular Volume 100 fL (79-100) Mean Corpuscular Hemoglobin 32 pg (25-35) Mean Corpuscular Hemoglobin Concent 32 g/dL (31-37) Red Cell Distribution Width 16.4 % (11.5-14.5) Platelet Count 210 x10^3/uL (140-400) Neutrophils (%) (Auto) 84 % (31-73) Lymphocytes (%) (Auto) 5 % (24-48) Monocytes (%) (Auto) 10 % (0-9) Eosinophils (%) (Auto) 1 % (0-3) Basophils (%) (Auto) 0 % (0-3) Neutrophils # (Auto) 7.3 x10^3uL (1.8-7.7) Lymphocytes # (Auto) 0.5 x10^3/uL (1.0-4.8) Monocytes # (Auto) 0.9 x10^3/uL (0.0-1.1) Eosinophils # (Auto) 0.1 x10^3/uL (0.0-0.7) Basophils # (Auto) 0.0 x10^3/uL (0.0-0.2) Sodium Level 143 mmol/L (136-145) Potassium Level 3.9 mmol/L (3.5-5.1) Chloride Level 105 mmol/L (98-107) Carbon Dioxide Level 22 mmol/L (21-32) Anion Gap 16 (6-14) Blood Urea Nitrogen 21 mg/dL (7-20) Creatinine 5.0 mg/dL (0.6-1.0) Estimated GFR (Cockcroft-Gault) 10.1 Glucose Level 60 mg/dL (70-99) Lactic Acid Level 1.3 mmol/L (0.4-2.0) Calcium Level 8.5 mg/dL (8.5-10.1) Magnesium Level 1.9 mg/dL (1.8-2.4) Total Bilirubin 0.6 mg/dL (0.2-1.0) Direct Bilirubin 0.3 mg/dL (0.0-0.2) Aspartate Amino Transf (AST/SGOT) 22 U/L (15-37) Alanine Aminotransferase (ALT/SGPT) 11 U/L (14-59) Alkaline Phosphatase 98 U/L (46-116) Ammonia 12 mcmol/L (11-34) Creatine Kinase 90 U/L (26-192) Creatine Kinase MB (Mass) 2.9 ng/mL (0.0-3.6) Creatine Kinase MB Relative Index 3.2 % (0-4) Troponin I Quantitative 0.087 ng/mL (0.000-0.055) KO-Roz-Y-Type Natriuretic Peptide > 48334 pg/mL (0-449) Total Protein 7.6 g/dL (6.4-8.2) Albumin 3.3 g/dL (3.4-5.0) Lipase 64 U/L (73-393) Thyroid Stimulating Hormone (TSH) 3.206 uIU/mL (0.358-3.74) ECHOCARDIOGRAM ECHOCARDIOGRAM <Conclusion> The left ventricle is normal size. Left ventricle systolic function is mildly impaired. The Ejection Fraction is 40-45%. There is mild asymmetric left ventricular hypertrophy. There is mild global hypokinesis of the left ventricle. The left atrium is mild to moderately dilated. There is no significant aortic valvular stenosis. Doppler and Color Flow revealed mild to moderate aortic regurgitation. Doppler and Color Flow revealed mild to moderate mitral regurgitation. Doppler and Color Flow revealed moderate tricuspid regurgitation. The pulmonary artery systolic pressure is estimated at 50 mmHg. DATE: 02/12/17 1207 HEART CATH HEART CATH Findings. Hemodynamics. LV pressure 140/26, aortic root pressure of 146/90. Coronaries. Left main. The left main was a normal-size vessel with no lesions. Left anterior descending. The LAD was a moderate-sized vessel with normal distribution. It had a mid 10% lesion and a distal 10% lesion. There was also vascular blushing in the area of the septum with probable arteriovenous shunting. Left circumflex. The left circumflex was nondominant. It has a mid 15% lesion and distal small vessel disease. Right coronary artery. Right coronary was a dominant vessel. It had an ostial greater than 80% lesion and a distal 15% lesion. <Conclusion> Severe single-vessel coronary artery disease with an ostial greater than 80% right coronary lesion. Successful bare metal stenting of the ostial lesion. Mild coronary artery disease in the left system. Vascular blushing in the area of the septum with probable arteriovenous shunting. DATE: 02/21/17 1410 ASSESSMENT/PLAN ASSESSMENT/PLAN 1. Fall, near syncope sustaining right rib fractures. etiology unclear. Suspect due to weakness/debility 2. CAD s/p recent PCI/BMS to RCA; stable. CP free 3. 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 NT Pro BNP >35 ,000. CXR with vascular congestion 4. Mild troponin elevation; most probably demand ischemia in the setting of fall and CKD 5. Hypertension; controlled 6. Hyperlipidemia; LDL 26 (01/2017) 7. Diabetes, II with hypoglycemia upon arrival 8. ESRD on HD 9. Hypothyroidism; TSH WNL Recommendations Trend troponin Resume secondary prevention measures Fluid offloading via HD per nephrology Monitor telemetry for presence or significant arrhythmias Check orthos Problems: BRIDGETT SALINAS MD 05/02/17 1611: CARDIAC CONSULT ALLERGIES ALLERGIES: Coded Allergies: No Known Drug Allergies (Unverified , 04/13/14) ASSESSMENT/PLAN ASSESSMENT/PLAN Discussed with our nurse practitioner. Progressive weakness with fall as above. Near syncopal episode. Rhythm stable. Continue telemetry. Monitoring lab. Coronary artery disease. Recent bare metal stent to the right coronary artery. No chest pain. No acute EKG changes. Continue present treatment. Acute on chronic mixed heart failure. Fluid management as per hemodialysis. Continue baseline medications. End-stage renal disease. Hemodialysis as per the renal service. Diabetes mellitus as per the hospitalist service. Controlled hypertension. Minimally elevated troponin. No acute EKG changes. Will trend lab. Thank you for allowing us to participate in the care of your patient. Problems: ALEX MENDOZA APRN May 02, 2017 14:23 BRIDGETT SALINAS MD May 02, 2017 16:11
[2017-05-02 16:16] VITALS: BP 153/91
[2017-05-02] MEDS ORDERED: FUROSEMIDE 40 MG/4 ML VIAL. IVP ONE (16:30)
[2017-05-02] MEDS: SEVELAMER CARBONATE 800 MG TABLET. PO SCH (17:43)
[2017-05-02 19:41] VITALS: BP 106/70
[2017-05-02 23:35] VITALS: BP 158/71
[2017-05-02 23:37] VITALS: BP 151/75
[2017-05-03 03:57] VITALS: BP 141/72
[2017-05-03 07:05] VITALS: BP 143/72
[2017-05-03] MEDS: SEVELAMER CARBONATE 800 MG TABLET. PO SCH ×3 (08:46→18:04)
--- NOTE | 2017-05-03 08:56 | PDOC1 ---
History and Physical Date of Admission Date of Admission 04/02/17 Identification/Chief Complaint Chief Complaint hypoglycemia Problems: Source Source: Chart review, Patient History of Present Illness History of Present Illness Patient is a pleasant 81-year-old female who lives by her self and has a history of diabetes, end-stage renal disease, hypertension, breast cancer, hyperlipidemia, as, TIA, prior CVA, who presents with a near-syncopal episode/ fall injuring her face and her right ribs. This is now the second time she's been seen in our ER in the last 2 days. She fell last night and was seen here in the ER and discharged back home. This morning she was getting up again and fell forward this time injuring her bottom right lip. She still complains of right flank pain. She was very weak and dizzy when she fell and she was on the floor for approximate 4 hours before she was able to reach a phone call EMS. Upon EMS arrival they noted her Accu-Chek was 47 although patient was still mentating they attempted to feed her oral glucose challenge as well as a sandwich. Patient denies any chest pain, denies any abdominal pain, denies any focal neurologic deficits or weakness, just generalized fatigue and not feeling well along with flank pain is worse with breathing and movement and direct pressure over her lower abdomen on the right. NO Fevers, chills, vision changes or problems speaking. She only uses 20 units of Lantus daily regardless of her sugar levels. Since she lives alone she does her own meal preparation. Past Medical History Cardiovascular: CHF, HTN CENTRAL NERVOUS SYSTEM: TIA GI: GERD Heme/Onc: Anemia NOS, Cancer Hepatobiliary: No pertinent hx Psych: Depression Rheumatologic: No pertinent hx Infectious disease: No pertinent hx Renal/: Chronic renal failure Endocrine: Diabetes, Hyperparathyroidism Past Surgical History Past Surgical History: Appendectomy, Cholecystectomy, Cataract Removal, Mastectomy, Hysterectomy, Other Family History Family History: Hypertension Social History Smoke: No ALCOHOL: none Drugs: None Current Problem List Problem List Problems Medical Problems: (1) Abdominal wall contusion Status: Acute (2) Elevated troponin Status: Acute (3) End stage renal disease Status: Acute (4) Fall from standing Status: Acute (5) Hypoglycemia associated with diabetes Status: Acute (6) Syncope Status: Acute Current Medications Current Medications Current Medications Medications (Trade) Dose Ordered Sig/Sahil Start Time Stop Time Status Last Admin Dose Admin Acetaminophen (Tylenol) 650 mg PRN Q4HRS PRN 05/02/17 12:15 05/03/17 12:14 Dextrose 1,000 ml @ 200 mls/hr 1X ONCE 05/02/17 10:45 05/02/17 15:44 DC 05/02/17 10:58 200 MLS/HR Fentanyl Citrate (Fentanyl 2ml Vial) 50 mcg PRN Q1HR PRN 05/02/17 12:15 05/03/17 12:14 05/02/17 23:11 50 MCG Furosemide (Lasix) 40 mg 1X ONCE 05/02/17 16:30 05/02/17 16:31 DC 05/02/17 16:52 40 MG Ondansetron HCl (Zofran) 4 mg PRN Q8HRS PRN 05/02/17 12:15 05/03/17 12:14 Sevelamer Carbonate (Renvela) 800 mg TIDAC 05/02/17 17:00 05/03/17 08:46 800 MG Sodium Chloride 1,000 ml @ 1,000 mls/hr Q1H 05/02/17 12:30 05/02/17 13:29 DC Sodium Chloride (Normal Saline Flush) 10 ml QSHIFT PRN 05/02/17 11:00 Allergies Allergies Allergies Coded Allergies Type Severity Reaction Last Updated Verified No Known Drug Allergies 04/13/14 No ROS Review of System CONSTITUTIONAL: No fever or chills EYES: No recent changes SKIN: No rash or itching CARDIOVASCULAR: No chest pain, syncope, palpitations, or edema RESPIRATORY: mild SOB no cough GASTROINTESTINAL: No nausea, vomiting or abdominal pain NEUROLOGICAL: No headaches + weakness ENDOCRINE: No cold or heat intolerance GENITOURINARY: No urgency or frequency of urination MUSCULOSKELETAL: has back pain and right flank pain LYMPHATICS: No enlarged lymph nodes Physical Exam Physical Exam GEN.: No apparent distress. Alert and oriented. HEENT: Head is normocephalic, atraumatic NECK: Supple. LUNGS: Clear to auscultation. HEART: RRR, S1, S2 present. Peripheral pulses intact ABDOMEN: Soft, nontender. Positive bowel sounds. EXTREMITIES: Without any cyanosis. RUE with swelling and pain NEUROLOGIC: Normal speech, normal tone PSYCHIATRIC: Normal affect, normal mood. Vitals Vitals Vital Signs Date Time Temp Pulse Resp B/P (MAP) Pulse Ox O2 Delivery O2 Flow Rate FiO2 05/03/17 08:05 Nasal Cannula 2.0 05/03/17 07:05 98.5 68 18 143/72 (95) 100 98.5 Labs Labs Laboratory Tests Test 05/02/17 10:25 05/02/17 11:00 05/02/17 12:09 05/02/17 16:30 Glucose (Fingerstick) 43 mg/dL (70-99) 138 mg/dL (70-99) 120 mg/dL (70-99) White Blood Count 8.7 x10^3/uL (4.0-11.0) Red Blood Count 3.68 x10^6/uL (3.50-5.40) Hemoglobin 11.8 g/dL (12.0-15.5) Hematocrit 36.9 % (36.0-47.0) Mean Corpuscular Volume 100 fL (79-100) Mean Corpuscular Hemoglobin 32 pg (25-35) Mean Corpuscular Hemoglobin Concent 32 g/dL (31-37) Red Cell Distribution Width 16.4 % (11.5-14.5) Platelet Count 210 x10^3/uL (140-400) Neutrophils (%) (Auto) 84 % (31-73) Lymphocytes (%) (Auto) 5 % (24-48) Monocytes (%) (Auto) 10 % (0-9) Eosinophils (%) (Auto) 1 % (0-3) Basophils (%) (Auto) 0 % (0-3) Neutrophils # (Auto) 7.3 x10^3uL (1.8-7.7) Lymphocytes # (Auto) 0.5 x10^3/uL (1.0-4.8) Monocytes # (Auto) 0.9 x10^3/uL (0.0-1.1) Eosinophils # (Auto) 0.1 x10^3/uL (0.0-0.7) Basophils # (Auto) 0.0 x10^3/uL (0.0-0.2) Sodium Level 143 mmol/L (136-145) Potassium Level 3.9 mmol/L (3.5-5.1) Chloride Level 105 mmol/L (98-107) Carbon Dioxide Level 22 mmol/L (21-32) Anion Gap 16 (6-14) Blood Urea Nitrogen 21 mg/dL (7-20) Creatinine 5.0 mg/dL (0.6-1.0) Estimated GFR (Cockcroft-Gault) 10.1 Glucose Level 60 mg/dL (70-99) Lactic Acid Level 1.3 mmol/L (0.4-2.0) Calcium Level 8.5 mg/dL (8.5-10.1) Magnesium Level 1.9 mg/dL (1.8-2.4) Total Bilirubin 0.6 mg/dL (0.2-1.0) Direct Bilirubin 0.3 mg/dL (0.0-0.2) Aspartate Amino Transf (AST/SGOT) 22 U/L (15-37) Alanine Aminotransferase (ALT/SGPT) 11 U/L (14-59) Alkaline Phosphatase 98 U/L (46-116) Ammonia 12 mcmol/L (11-34) Creatine Kinase 90 U/L (26-192) Creatine Kinase MB (Mass) 2.9 ng/mL (0.0-3.6) Creatine Kinase MB Relative Index 3.2 % (0-4) Troponin I Quantitative 0.087 ng/mL (0.000-0.055) UT-Zfa-Y-Type Natriuretic Peptide > 40962 pg/mL (0-449) Total Protein 7.6 g/dL (6.4-8.2) Albumin 3.3 g/dL (3.4-5.0) Lipase 64 U/L (73-393) Thyroid Stimulating Hormone (TSH) 3.206 uIU/mL (0.358-3.74) Test 05/02/17 18:30 05/02/17 21:02 05/03/17 00:30 05/03/17 07:00 Troponin I Quantitative 0.111 ng/mL (0.000-0.055) 0.114 ng/mL (0.000-0.055) Glucose (Fingerstick) 88 mg/dL (70-99) 70 mg/dL (70-99) Laboratory Tests Test 05/02/17 10:25 05/02/17 11:00 05/02/17 12:09 05/02/17 16:30 Glucose (Fingerstick) 43 mg/dL (70-99) 138 mg/dL (70-99) 120 mg/dL (70-99) White Blood Count 8.7 x10^3/uL (4.0-11.0) Red Blood Count 3.68 x10^6/uL (3.50-5.40) Hemoglobin 11.8 g/dL (12.0-15.5) Hematocrit 36.9 % (36.0-47.0) Mean Corpuscular Volume 100 fL (79-100) Mean Corpuscular Hemoglobin 32 pg (25-35) Mean Corpuscular Hemoglobin Concent 32 g/dL (31-37) Red Cell Distribution Width 16.4 % (11.5-14.5) Platelet Count 210 x10^3/uL (140-400) Neutrophils (%) (Auto) 84 % (31-73) Lymphocytes (%) (Auto) 5 % (24-48) Monocytes (%) (Auto) 10 % (0-9) Eosinophils (%) (Auto) 1 % (0-3) Basophils (%) (Auto) 0 % (0-3) Neutrophils # (Auto) 7.3 x10^3uL (1.8-7.7) Lymphocytes # (Auto) 0.5 x10^3/uL (1.0-4.8) Monocytes # (Auto) 0.9 x10^3/uL (0.0-1.1) Eosinophils # (Auto) 0.1 x10^3/uL (0.0-0.7) Basophils # (Auto) 0.0 x10^3/uL (0.0-0.2) Sodium Level 143 mmol/L (136-145) Potassium Level 3.9 mmol/L (3.5-5.1) Chloride Level 105 mmol/L (98-107) Carbon Dioxide Level 22 mmol/L (21-32) Anion Gap 16 (6-14) Blood Urea Nitrogen 21 mg/dL (7-20) Creatinine 5.0 mg/dL (0.6-1.0) Estimated GFR (Cockcroft-Gault) 10.1 Glucose Level 60 mg/dL (70-99) Lactic Acid Level 1.3 mmol/L (0.4-2.0) Calcium Level 8.5 mg/dL (8.5-10.1) Magnesium Level 1.9 mg/dL (1.8-2.4) Total Bilirubin 0.6 mg/dL (0.2-1.0) Direct Bilirubin 0.3 mg/dL (0.0-0.2) Aspartate Amino Transf (AST/SGOT) 22 U/L (15-37) Alanine Aminotransferase (ALT/SGPT) 11 U/L (14-59) Alkaline Phosphatase 98 U/L (46-116) Ammonia 12 mcmol/L (11-34) Creatine Kinase 90 U/L (26-192) Creatine Kinase MB (Mass) 2.9 ng/mL (0.0-3.6) Creatine Kinase MB Relative Index 3.2 % (0-4) Troponin I Quantitative 0.087 ng/mL (0.000-0.055) JJ-Dnu-W-Type Natriuretic Peptide > 84516 pg/mL (0-449) Total Protein 7.6 g/dL (6.4-8.2) Albumin 3.3 g/dL (3.4-5.0) Lipase 64 U/L (73-393) Thyroid Stimulating Hormone (TSH) 3.206 uIU/mL (0.358-3.74) Test 05/02/17 18:30 05/02/17 21:02 05/03/17 00:30 05/03/17 07:00 Troponin I Quantitative 0.111 ng/mL (0.000-0.055) 0.114 ng/mL (0.000-0.055) Glucose (Fingerstick) 88 mg/dL (70-99) 70 mg/dL (70-99) VTE Prophylaxis Ordered VTE Prophylaxis Devices: Yes VTE Pharmacological Prophylaxi: Yes Assessment/Plan Assessment/Plan 1- Hypoglycemia hold insulin 2-elevated troponin possibly nonespecific 3-swelling LUE will get venous doppler 4-ESRD on dialysis 5-CAD/HTN 6-right side pain and fall no evidence of Fx so far BRENDA PABON MD May 03, 2017 08:56
[2017-05-03] MEDS ORDERED: traZODone 50 MG TABLET. PO PRN (09:00)
[2017-05-03] MEDS ORDERED: traMADol 50 MG TABLET PO PRN (09:00)
[2017-05-03] MEDS ORDERED: oxyCODONE/APAP 5/325 1 TAB TABLET PO PRN (09:15)
[2017-05-03] MEDS: oxyCODONE/APAP 5/325 1 TAB TABLET PO PRN ×2 (09:35→20:13)
[2017-05-03] MEDS: SERTRALINE 25 MG TABLET. PO SCH (10:23)
[2017-05-03] MEDS: PANTOPRAZOLE 40 MG TABLET.DR. PO SCH (10:23)
[2017-05-03] MEDS: FUROSEMIDE 40 MG TABLET. PO SCH (10:23)
[2017-05-03] MEDS: LEVOTHYROXINE 75 MCG TABLET PO SCH (10:23)
[2017-05-03] MEDS: FOLIC/VIT B COMP W-C (RENAL) TABLET. PO SCH (10:23)
[2017-05-03] MEDS: ASPIRIN CHEWABLE 81 MG TABLET. PO SCH (10:23)
[2017-05-03] MEDS: CLOPIDOGREL BISULFATE 75 MG TABLET PO SCH (10:23)
[2017-05-03] MEDS: amLODIPine BESYLATE 10 MG TABLET PO SCH (10:30)
[2017-05-03] MEDS: CARVEDILOL 6.25 MG TABLET. PO SCH ×2 (10:30→18:04)
[2017-05-03] MEDS: LOSARTAN POTASSIUM 50 MG TABLET. PO SCH (10:31)
[2017-05-03 10:51] VITALS: BP 145/58
--- NOTE | 2017-05-03 11:08 | RAD ---
Right upper extremity venous ultrasound, 05/03/2017: History: Right arm inflammation and pain, dialysis fistula Duplex evaluation of the deep veins in the right upper extremity was performed including grayscale, color-flow and spectral Doppler analysis. The right internal jugular, subclavian, axillary, brachial, cephalic, ulnar and radial veins are all patent. There is a dialysis fistula in the upper arm which is widely patent. It runs from the brachial artery superiorly connecting into the axillary vein. The axillary vein is dilated. The shunt is likely constructed from a segment of the basilic vein. A normal basilic vein was not evident in the upper arm. IMPRESSION: 1. No evidence of deep vein thrombosis in the right upper extremity. 2. Patent dialysis fistula in the right upper arm.
--- NOTE | 2017-05-03 12:38 | PDOC2 ---
CONSULT Date of Consult Date of Consult DATE: 05/03/17 TIME: 12:34 Reason for Consult Reason for Consult: ESRD Referring Physician Referring Physician: CM Identification/Chief Complaint Chief Complaint CONFUSION AND FALL Problems: Source Source: Chart review, Patient History of Present Illness Reason for Visit: THIS IS AN 81 YR OLD HERE WITH A FALL AND CONFUSION AND NOTED TO BE HYPOGLYCEMIC. SHE HAS ESRD AND IS ON OP HD ON TTS. LABS ARE C/W ESRD. ESRD DUE TO HTN AND DM. NO OTHER HX. CURRENTLY ANURIC Past Medical History Cardiovascular: CHF, HTN CENTRAL NERVOUS SYSTEM: TIA GI: GERD Heme/Onc: Anemia NOS, Cancer Hepatobiliary: No pertinent hx Psych: Depression Musculoskeletal: Osteoarthritis Rheumatologic: No pertinent hx Infectious disease: No pertinent hx Renal/: Chronic renal failure Endocrine: Diabetes, Hyperparathyroidism Past Surgical History Past Surgical History: Appendectomy, Cholecystectomy, Cataract Removal, Mastectomy, Hysterectomy, Other Family History Family History: Hypertension Social History No ALCOHOL: none Drugs: None Lives: Alone Current Problem List Problem List Problems Medical Problems: (1) Abdominal wall contusion Status: Acute (2) Elevated troponin Status: Acute (3) End stage renal disease Status: Acute (4) Fall from standing Status: Acute (5) Hypoglycemia associated with diabetes Status: Acute (6) Syncope Status: Acute Current Medications Current Medications Current Medications Dextrose 1,000 ml @ 200 mls/hr 1X ONCE IV Last administered on 05/02/17 10: 58; Start 05/02/17 at 10:45; Stop 05/02/17 at 15:44; Status DC Sodium Chloride 1,000 ml @ 1,000 mls/hr Q1H IV Last administered on 12:29; Start 05/02/17 at 10:56; Stop 05/02/17 at 11:55; Status DC Sodium Chloride (Normal Saline Flush) 10 ml QSHIFT PRN IV AFTER MEDS AND BLOOD DRAWS; Start 05/02/17 at 11:00 Ondansetron HCl (Zofran) 4 mg PRN Q8HRS PRN IV NAUSEA/VOMITING; Start at 12:15; Stop 05/03/17 at 12:14; Status DC Fentanyl Citrate (Fentanyl 2ml Vial) 50 mcg PRN Q1HR PRN IV PAIN Last administered on 05/02/17 23:11; Start 05/02/17 at 12:15; Stop 05/03/17 at 12 :14; Status DC Sodium Chloride 1,000 ml 1213 STAT IV ; Start 05/02/17 at 12:13; Stop at 12:14; Status UNV Acetaminophen (Tylenol) 650 mg PRN Q4HRS PRN PO FEVER; Start 05/02/17 at 12:15 ; Stop 05/03/17 at 12:14; Status DC Sodium Chloride 1,000 ml @ 1,000 mls/hr Q1H IV ; Start 05/02/17 at 12:30; Stop 05/02/17 at 13:29; Status DC Furosemide (Lasix) 40 mg 1X ONCE IVP Last administered on 05/02/17 16:52; Start 05/02/17 at 16:30; Stop 05/02/17 at 16:31; Status DC Sevelamer Carbonate (Renvela) 800 mg TIDAC PO Last administered on 05/03/17 12:24; Start 05/02/17 at 17:00 Amlodipine Besylate (Norvasc) 10 mg DAILY PO Last administered on 05/03/17 10 :30; Start 05/03/17 at 10:00 Aspirin (Children'S Aspirin) 81 mg DAILY PO Last administered on 05/03/17 10: 23; Start 05/03/17 at 10:00 Atorvastatin Calcium (Lipitor) 20 mg HS PO ; Start 05/03/17 at 21:00 Carvedilol (Coreg) 6.25 mg BIDWMEALS PO Last administered on 05/03/17 10:30; Start 05/03/17 at 10:00 Clopidogrel Bisulfate (Plavix) 75 mg DAILY PO Last administered on 05/03/17 10:23; Start 05/03/17 at 10:00 Vitamin B Complex/ Vitamin C (Johana-Manuel) 1 tab DAILY PO Last administered on 10:23; Start 05/03/17 at 10:00 Furosemide (Lasix) 40 mg DAILY PO Last administered on 05/03/17 10:23; Start 05/03/17 at 10:00 Levothyroxine Sodium (Synthroid) 75 mcg DAILYAC PO Last administered on 10:23; Start 05/03/17 at 10:00 Oxycodone/ Acetaminophen (Percocet 5/325) 2 tab PRN Q4HRS PRN PO PAIN Last administered on 05/03/17 09:35; Start 05/03/17 at 09:00 Sertraline HCl (Zoloft) 25 mg DAILY PO Last administered on 05/03/17 10:23; Start 05/03/17 at 10:00 Tramadol HCl (Ultram) 50 mg PRN Q6HRS PRN PO PAIN Last administered on 12:26; Start 05/03/17 at 09:00 Trazodone HCl (Desyrel) 50 mg PRN QHS PRN PO INSOMNIA; Start 05/03/17 at 09:00 Pantoprazole Sodium (Protonix) 40 mg DAILYAC PO Last administered on 10:23; Start 05/03/17 at 10:00 Hydralazine HCl (Apresoline) 100 mg TID PO Last administered on 05/03/17 10: 29; Start 05/03/17 at 10:00 Losartan Potassium (Cozaar) 100 mg DAILY PO Last administered on 05/03/17 10: 31; Start 05/03/17 at 10:00 Oxycodone/ Acetaminophen (Percocet 5/325) 1 tab PRN Q4HRS PRN PO PAIN; Start 05/03/17 at 09:15 Active Scripts Active Lantus Solostar (Insulin Glargine,Hum.rec.anlog) 100 Unit/1 Ml Insuln.pen 4 Unit SQ HS 30 Days Carvedilol 3.125 Mg Tablet 6.25 Mg PO BIDWMEALS 30 Days Tramadol Hcl 50 Mg Tablet 1 Tab PO PRN Q6HRS PRN Trazodone Hcl 50 Mg Tablet 50 Mg PO PRN QHS PRN 30 Days Sertraline Hcl 25 Mg Tablet 25 Mg PO DAILY 30 Days Percocet 5-325 Mg Tablet (Oxycodone/Acetaminophen) 1 Each Tablet 1-2 Tab PO Q4- 6HRS Reported Lipitor (Atorvastatin Calcium) 20 Mg Tablet 20 Mg PO HS Amlodipine Besylate 10 Mg Tablet 10 Mg PO DAILY Plavix (Clopidogrel Bisulfate) 75 Mg Tablet 75 Mg PO DAILY Aspirin 81 Mg Tab.chew 81 Mg PO DAILY Synthroid (Levothyroxine Sodium) 75 Mcg Tablet 75 Mcg PO DAILYAC Cozaar (Losartan Potassium) 100 Mg Tablet 100 Mg PO DAILY Renvela (Sevelamer Carbonate) 800 Mg Tablet 800 Mg PO TIDAC Nephro-Manuel Tablet (Folic Acid/Vitamin B Comp W-C) 0.8 Mg Tablet 0.8 Mg PO DAILY Esomeprazole Capsule (Esomeprazole Strontium) 40 Mg Capsule.dr 40 Mg PO DAILYAC Hydralazine Hcl 100 Mg Tablet 100 Mg PO TID Lasix (Furosemide) 40 Mg Tablet 40 Mg PO DAILY Allergies Allergies: Coded Allergies: No Known Drug Allergies (Unverified , 04/13/14) ROS General: YES: Fatigue, Malaise, Appetite PSYCHOLOGICAL ROS: YES: Anxiety Eyes: Yes Decreased vision HEENT: YES: Heacaches Respiratory: YES: Cough, Shortness of breath Cardiovascular: yes Lt Headedness Gastrointestinal: Yes Constipation Genitourinary: YES Other (ANURIA) Musculoskeletal: Yes Muscular Weakness Neurological: Yes Confusion, Yes Dizziness, Yes Gait Disturbance, Yes Weakness Skin: Yes Dry Skin Physical Exam General: Alert, Oriented X3 HEENT: PERRLA Lungs: Clear to auscultation Heart: Regular rate, Normal S2 Abdomen: Normal bowel sounds, Soft Extremities: No clubbing, No cyanosis Skin: No rashes, No breakdown Neuro: Normal speech, Sensation intact, Cranial nerves 3-12 NL Psych/Mental Status: Mental status NL, Mood NL MUSCULOSKELETAL: No joint tenderness, Other (RIGHT CHEST WALL PAIN) Vitals VITALS Vital Signs Date Time Temp Pulse Resp B/P (MAP) Pulse Ox O2 Delivery O2 Flow Rate FiO2 05/03/17 12:27 95 Nasal Cannula 2.0 05/03/17 10:51 97.9 86 20 145/58 (87) 97.9 Labs Labs Laboratory Tests Test 05/02/17 10:25 05/02/17 11:00 05/02/17 12:09 05/02/17 16:30 Glucose (Fingerstick) 43 mg/dL (70-99) 138 mg/dL (70-99) 120 mg/dL (70-99) White Blood Count 8.7 x10^3/uL (4.0-11.0) Red Blood Count 3.68 x10^6/uL (3.50-5.40) Hemoglobin 11.8 g/dL (12.0-15.5) Hematocrit 36.9 % (36.0-47.0) Mean Corpuscular Volume 100 fL (79-100) Mean Corpuscular Hemoglobin 32 pg (25-35) Mean Corpuscular Hemoglobin Concent 32 g/dL (31-37) Red Cell Distribution Width 16.4 % (11.5-14.5) Platelet Count 210 x10^3/uL (140-400) Neutrophils (%) (Auto) 84 % (31-73) Lymphocytes (%) (Auto) 5 % (24-48) Monocytes (%) (Auto) 10 % (0-9) Eosinophils (%) (Auto) 1 % (0-3) Basophils (%) (Auto) 0 % (0-3) Neutrophils # (Auto) 7.3 x10^3uL (1.8-7.7) Lymphocytes # (Auto) 0.5 x10^3/uL (1.0-4.8) Monocytes # (Auto) 0.9 x10^3/uL (0.0-1.1) Eosinophils # (Auto) 0.1 x10^3/uL (0.0-0.7) Basophils # (Auto) 0.0 x10^3/uL (0.0-0.2) Sodium Level 143 mmol/L (136-145) Potassium Level 3.9 mmol/L (3.5-5.1) Chloride Level 105 mmol/L (98-107) Carbon Dioxide Level 22 mmol/L (21-32) Anion Gap 16 (6-14) Blood Urea Nitrogen 21 mg/dL (7-20) Creatinine 5.0 mg/dL (0.6-1.0) Estimated GFR (Cockcroft-Gault) 10.1 Glucose Level 60 mg/dL (70-99) Lactic Acid Level 1.3 mmol/L (0.4-2.0) Calcium Level 8.5 mg/dL (8.5-10.1) Magnesium Level 1.9 mg/dL (1.8-2.4) Total Bilirubin 0.6 mg/dL (0.2-1.0) Direct Bilirubin 0.3 mg/dL (0.0-0.2) Aspartate Amino Transf (AST/SGOT) 22 U/L (15-37) Alanine Aminotransferase (ALT/SGPT) 11 U/L (14-59) Alkaline Phosphatase 98 U/L (46-116) Ammonia 12 mcmol/L (11-34) Creatine Kinase 90 U/L (26-192) Creatine Kinase MB (Mass) 2.9 ng/mL (0.0-3.6) Creatine Kinase MB Relative Index 3.2 % (0-4) Troponin I Quantitative 0.087 ng/mL (0.000-0.055) FV-Kyz-R-Type Natriuretic Peptide > 05832 pg/mL (0-449) Total Protein 7.6 g/dL (6.4-8.2) Albumin 3.3 g/dL (3.4-5.0) Lipase 64 U/L (73-393) Thyroid Stimulating Hormone (TSH) 3.206 uIU/mL (0.358-3.74) Test 05/02/17 18:30 05/02/17 21:02 05/03/17 00:30 05/03/17 07:00 Troponin I Quantitative 0.111 ng/mL (0.000-0.055) 0.114 ng/mL (0.000-0.055) Glucose (Fingerstick) 88 mg/dL (70-99) 70 mg/dL (70-99) Test 05/03/17 11:28 Glucose (Fingerstick) 188 mg/dL (70-99) Laboratory Tests Test 05/02/17 16:30 05/02/17 18:30 05/02/17 21:02 05/03/17 00:30 Glucose (Fingerstick) 120 mg/dL (70-99) 88 mg/dL (70-99) Troponin I Quantitative 0.111 ng/mL (0.000-0.055) 0.114 ng/mL (0.000-0.055) Test 05/03/17 07:00 05/03/17 11:28 Glucose (Fingerstick) 70 mg/dL (70-99) 188 mg/dL (70-99) Assessment/Plan Assessment/Plan IMP ESRD ANEMIA DM II HTN HYPOGLYCEMIA MET ENCEPHALOPATHY RIB FX PLAN HD TODAY UF TO JAVID PARRA MD May 03, 2017 12:37
[2017-05-03] MEDS ORDERED: IV NORMAL SALINE 1000ML BAG 1,000 ML IV PRN ×2 (13:11)
[2017-05-03] MEDS ORDERED: DIALYSIS PATIENT. MC PRN (13:15)
[2017-05-03] MEDS ORDERED: LABETALOL 20 MG/4 ML DISP.SYRIN. IVP PRN (13:15)
[2017-05-03] MEDS ORDERED: diphenhydrAMINE 50 MG/ML VIAL IV PRN ×2 (13:15)
[2017-05-03] MEDS ORDERED: ACETAMINOPHEN 500 MG TABLET PO PRN (13:15)
--- NOTE | 2017-05-03 15:36 | PDOC ---
CARDIO Progress Notes Date and Time Date of Service 05/03/2017 Time of Evaluation 1520 Subjective Subjective: No Chest Pain, No shortness of breath, No Palpitations, Other ( feels better today) Vitals Vitals Vital Signs Date Time Temp Pulse Resp B/P (MAP) Pulse Ox O2 Delivery O2 Flow Rate FiO2 05/03/17 14:58 95 Nasal Cannula 2.0 05/03/17 10:51 97.9 86 20 145/58 (87) 97.9 Weight Weight [ ] Input and Output Intake and Output Intake and Output 05/03/17 07:00 Intake Total 1040 ml Output Total 0 ml Balance 1040 ml Intake Oral 540 ml IV Total 500 ml Output Urine Total 0 ml # Voids 3 Laboratory Labs Laboratory Tests Test 05/02/17 16:30 05/02/17 18:30 05/02/17 21:02 05/03/17 00:30 Glucose (Fingerstick) 120 mg/dL (70-99) 88 mg/dL (70-99) Troponin I Quantitative 0.111 ng/mL (0.000-0.055) 0.114 ng/mL (0.000-0.055) Test 05/03/17 07:00 05/03/17 11:28 Glucose (Fingerstick) 70 mg/dL (70-99) 188 mg/dL (70-99) Microbiology Micro Microbiology 05/02/17 Blood Culture - Preliminary, Resulted NO GROWTH AFTER 1 DAY Physical Exam HEENT: Neck Supple W Full Motion Chest: Symmetric LUNGS: Other (basilar crackles) Heart: S1S2, RRR (SR no significant ectopies) Abdomen: Soft N/T Extremities: No Calf Tenderness, Other (trace LE edema. 3+ RUE edema 1+ LUE) Neurology: alert, oriented, follow commands Assessment Assessment 1. Fall, near syncope sustaining right rib fractures. likely from hypoglycemic reaction 2. CAD s/p recent PCI/BMS to RCA; stable. CP free 3. 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 multifactorial. appears compensated 4. Metabolic encephalopathy 4. Mild troponin elevation; peaked at 0.1, type 2 demand mediated due to hypoglycemia, CHF, and underlying ESRD. 5. HTN: controlled 6. HLP 7. DM2 8. ESRD on HD today Recommendations 1. Secondary prevention measures. Avoid hypoglycemia 2. Fluid offloading via HD per nephrology 3. Check orthostatic readings 4. F/U in office in 4 weeks VEDA SPRING APRN May 03, 2017 15:36
--- NOTE | 2017-05-03 16:15 | RAD ---
Indication: Right shoulder pain and inflammation, recent fall. Technique: 3 views of the right shoulder are submitted for review. No comparison is available. Findings: No fracture or dislocation is identified. There is mild osteoarthritis. There is soft tissue swelling. Impression: Negative for fracture. If further workup is required or if concern for rotator cuff injury, consider MRI.
[2017-05-03 19:25] VITALS: BP 132/58
[2017-05-03] MEDS: ATORVASTATIN CALCIUM 20 MG TABLET PO SCH (20:12)
[2017-05-03 23:25] VITALS: BP 97/58
[2017-05-04 03:25] VITALS: BP 130/57
[2017-05-04 04:30] LABS: HEMATOCRIT 31.7 % (36.0-47.0); HEMOGLOBIN 10.3 g/dL (12.0-15.5); RED BLOOD COUNT 3.18 x10^6/uL (3.50-5.40); RED CELL DISTRIBUTION WIDTH 15.7 % (11.5-14.5); WHITE BLOOD COUNT 7.4 x10^3/uL (4.0-11.0)
[2017-05-04 04:48] LABS: CREATININE 3.5 mg/dL (0.6-1.0); GFR 15.2; POTASSIUM 3.9 mmol/L (3.5-5.1)
[2017-05-04 07:00] VITALS: BP 149/61
[2017-05-04] MEDS: FUROSEMIDE 40 MG TABLET. PO SCH (07:44)
[2017-05-04] MEDS: FOLIC/VIT B COMP W-C (RENAL) TABLET. PO SCH (07:44)
[2017-05-04] MEDS: SERTRALINE 25 MG TABLET. PO SCH (07:44)
[2017-05-04] MEDS: LEVOTHYROXINE 75 MCG TABLET PO SCH (07:45)
[2017-05-04] MEDS: SEVELAMER CARBONATE 800 MG TABLET. PO SCH ×3 (07:45→16:03)
[2017-05-04] MEDS: amLODIPine BESYLATE 10 MG TABLET PO SCH (07:45)
[2017-05-04] MEDS: ASPIRIN CHEWABLE 81 MG TABLET. PO SCH (07:45)
[2017-05-04] MEDS: PANTOPRAZOLE 40 MG TABLET.DR. PO SCH (07:45)
[2017-05-04] MEDS: CLOPIDOGREL BISULFATE 75 MG TABLET PO SCH (07:45)
[2017-05-04] MEDS: LOSARTAN POTASSIUM 50 MG TABLET. PO SCH (07:46)
[2017-05-04] MEDS: CARVEDILOL 6.25 MG TABLET. PO SCH ×2 (07:46→16:00)
--- NOTE | 2017-05-04 09:20 | PDOC ---
SUBJECTIVE Subjective looks better, still not feeling good and in pain OBJECTIVE Vital Signs Vital Signs Date Time Temp Pulse Resp B/P (MAP) Pulse Ox O2 Delivery O2 Flow Rate FiO2 05/04/17 07:47 79 149/61 05/04/17 07:46 79 149/61 05/04/17 07:46 79 149/61 05/04/17 07:45 79 149/61 05/04/17 07:34 Nasal Cannula 2.0 05/04/17 07:00 97.9 79 18 149/61 (90) 97 Nasal Cannula 3.0 97.9 05/04/17 03:25 98.0 75 18 130/57 (81) 98 Room Air 98.0 05/03/17 23:25 98.6 80 18 97/58 (71) 91 Room Air 98.6 05/03/17 22:16 Nasal Cannula 2.0 05/03/17 20:13 Nasal Cannula 2.0 05/03/17 20:12 85 121/69 05/03/17 20:00 Nasal Cannula 2.0 05/03/17 19:25 97.4 82 18 132/58 (82) 99 Room Air 97.4 05/03/17 18:04 85 121/69 05/03/17 14:58 95 Nasal Cannula 2.0 05/03/17 12:27 95 05/03/17 12:26 95 Nasal Cannula 2.0 05/03/17 10:51 97.9 86 20 145/58 (87) 95 Room Air 97.9 05/03/17 10:31 68 143/72 05/03/17 10:30 68 143/72 05/03/17 10:30 68 143/72 05/03/17 10:29 68 143/72 05/03/17 09:35 95 Nasal Cannula 2.0 I & O Intake and Output 05/04/17 07:00 Intake Total 1350 ml Balance 1350 ml Intake Oral 1350 ml PHYSICAL EXAM Physical Exam lungs better air movement heart RRR right side chest wall pain abd soft ext still edema RUE, minimal edema Lower ext ASSESSMENT/PLAN Assessment/Plan 1- Hypoglycemia hold insulin 2-elevated troponin : Mild ; most probably demand ischemia in the setting of fall and CKD 3-swelling LUE , venous doppler ok will elevate 4-ESRD on dialysis 5-CAD/HTN 6-right side pain and Fall, near syncope sustaining right rib fractures. Suspect due to weakness/debility 7. CAD s/p recent PCI/BMS to RCA; stable. 8. 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 NT Pro BNP >35 ,000. CXR with vascular congestion continue dialysis 9. Hyperlipidemia; LDL 26 (01/2017) 10. Diabetes, II with hypoglycemia upon arrival 11. Hypothyroidism; TSH WNL Dr. Dougherty will cover this weekend, may need SNU Problems: COMMENT Lab Laboratory Tests Test 05/03/17 11:02 05/03/17 11:28 05/03/17 20:59 05/04/17 03:35 Hepatitis B Surface Antibody Reactive (.) Glucose (Fingerstick) 188 mg/dL (70-99) 298 mg/dL (70-99) White Blood Count 7.4 x10^3/uL (4.0-11.0) Red Blood Count 3.18 x10^6/uL (3.50-5.40) Hemoglobin 10.3 g/dL (12.0-15.5) Hematocrit 31.7 % (36.0-47.0) Mean Corpuscular Volume 100 fL (79-100) Mean Corpuscular Hemoglobin 32 pg (25-35) Mean Corpuscular Hemoglobin Concent 32 g/dL (31-37) Red Cell Distribution Width 15.7 % (11.5-14.5) Platelet Count 173 x10^3/uL (140-400) Sodium Level 138 mmol/L (136-145) Potassium Level 3.9 mmol/L (3.5-5.1) Chloride Level 101 mmol/L (98-107) Carbon Dioxide Level 28 mmol/L (21-32) Anion Gap 9 (6-14) Blood Urea Nitrogen 16 mg/dL (7-20) Creatinine 3.5 mg/dL (0.6-1.0) Estimated GFR (Cockcroft-Gault) 15.2 Glucose Level 166 mg/dL (70-99) Calcium Level 8.0 mg/dL (8.5-10.1) Test 05/04/17 07:26 Glucose (Fingerstick) 128 mg/dL (70-99) BRENDA PABON MD May 04, 2017 09:20
[2017-05-04 11:00] VITALS: BP 115/52
--- NOTE | 2017-05-04 11:16 | PDOC ---
CARDIO Progress Notes Date and Time Date of Service 05/04/17 Time of Evaluation 1100 Subjective Subjective: No Chest Pain, No shortness of breath, No Palpitations, Other ( mild rib pain) Vitals Vitals Vital Signs Date Time Temp Pulse Resp B/P (MAP) Pulse Ox O2 Delivery O2 Flow Rate FiO2 05/04/17 11:00 98.0 80 18 115/52 (73) 94 Room Air 98.0 05/04/17 07:34 2.0 Weight Weight [ ] Input and Output Intake and Output Intake and Output 05/04/17 07:00 Intake Total 1350 ml Balance 1350 ml Intake Oral 1350 ml Laboratory Labs Laboratory Tests Test 05/03/17 11:28 05/03/17 20:59 05/04/17 03:35 05/04/17 07:26 Glucose (Fingerstick) 188 mg/dL (70-99) 298 mg/dL (70-99) 128 mg/dL (70-99) White Blood Count 7.4 x10^3/uL (4.0-11.0) Red Blood Count 3.18 x10^6/uL (3.50-5.40) Hemoglobin 10.3 g/dL (12.0-15.5) Hematocrit 31.7 % (36.0-47.0) Mean Corpuscular Volume 100 fL (79-100) Mean Corpuscular Hemoglobin 32 pg (25-35) Mean Corpuscular Hemoglobin Concent 32 g/dL (31-37) Red Cell Distribution Width 15.7 % (11.5-14.5) Platelet Count 173 x10^3/uL (140-400) Sodium Level 138 mmol/L (136-145) Potassium Level 3.9 mmol/L (3.5-5.1) Chloride Level 101 mmol/L (98-107) Carbon Dioxide Level 28 mmol/L (21-32) Anion Gap 9 (6-14) Blood Urea Nitrogen 16 mg/dL (7-20) Creatinine 3.5 mg/dL (0.6-1.0) Estimated GFR (Cockcroft-Gault) 15.2 Glucose Level 166 mg/dL (70-99) Calcium Level 8.0 mg/dL (8.5-10.1) Microbiology Micro Microbiology 05/02/17 Blood Culture - Preliminary, Resulted NO GROWTH AFTER 1 DAY Physical Exam HEENT: Neck Supple W Full Motion Chest: Symmetric LUNGS: Other (diminished bases) Heart: S1S2, RRR (SR no significant ectopies) Abdomen: Soft N/T Extremities: No Calf Tenderness, Other (trace LE edema. 2+ RUE edema 1+ LUE) Neurology: alert, oriented, follow commands Assessment Assessment 1. Fall, near syncope sustaining right rib fractures. 2. Mild troponin elevation; peaked at 0.1, most probable type 2 demand mediated due to hypoglycemia, CHF, and underlying ESRD. 3. 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 multifactorial. compensated 4. CAD s/p recent PCI/BMS to RCA; stable. CP free 4. Metabolic encephalopathy 5. HTN: controlled 6. HLP 7. DM2 8. ESRD on HD Recommendations 1. Continue secondary prevention measures. 2. Fluid offloading/management via HD as per nephrology 3. F/U in office in 4 weeks ALEX MENDOZA APRN May 04, 2017 11:16
--- NOTE | 2017-05-04 11:27 | PDOC ---
Renal-Progress Notes Subjective Notes Notes STILL SOME PAIN BUT BETTER History of Present Illness Hx of present illness STABLE Vitals Vitals Vital Signs Date Time Temp Pulse Resp B/P (MAP) Pulse Ox O2 Delivery O2 Flow Rate FiO2 05/04/17 11:00 98.0 80 18 115/52 (73) 94 Room Air 98.0 05/04/17 07:34 2.0 Weight Weight [ ] I.O. Intake and Output Intake and Output 05/04/17 06:59 Intake Total 1350 ml Balance 1350 ml Intake Oral 1350 ml Labs Labs Laboratory Tests Test 05/03/17 11:28 05/03/17 20:59 05/04/17 03:35 05/04/17 07:26 Glucose (Fingerstick) 188 mg/dL (70-99) 298 mg/dL (70-99) 128 mg/dL (70-99) White Blood Count 7.4 x10^3/uL (4.0-11.0) Red Blood Count 3.18 x10^6/uL (3.50-5.40) Hemoglobin 10.3 g/dL (12.0-15.5) Hematocrit 31.7 % (36.0-47.0) Mean Corpuscular Volume 100 fL (79-100) Mean Corpuscular Hemoglobin 32 pg (25-35) Mean Corpuscular Hemoglobin Concent 32 g/dL (31-37) Red Cell Distribution Width 15.7 % (11.5-14.5) Platelet Count 173 x10^3/uL (140-400) Sodium Level 138 mmol/L (136-145) Potassium Level 3.9 mmol/L (3.5-5.1) Chloride Level 101 mmol/L (98-107) Carbon Dioxide Level 28 mmol/L (21-32) Anion Gap 9 (6-14) Blood Urea Nitrogen 16 mg/dL (7-20) Creatinine 3.5 mg/dL (0.6-1.0) Estimated GFR (Cockcroft-Gault) 15.2 Glucose Level 166 mg/dL (70-99) Calcium Level 8.0 mg/dL (8.5-10.1) Micro Micro Microbiology 05/02/17 Blood Culture - Preliminary, Resulted NO GROWTH AFTER 1 DAY Review of Systems Constitutional: yes: weakness, alert, oriented Ears/Nose/Throat: Yes: no symptom reported Eyes: Yes: no symptom reported Pulmonary: Yes no symptom reported Cardiovascular: Yes no symptom reported Gastrointestional: Yes: constipation Genitourinary: Yes: no symptom reported Musculoskeletal: Yes: other (RIGHT SIDED CHEST WALL PAIN) Skin: Yes no symptom reported Psychiatric/Neurological: Yes: no symptom reported Physical Exam General Appearance: no apparent distress Skin: warm Respiratory: bilateral CTA Heart: S1S2 Abdomen: soft, bowel sounds present Genitourinary: bladder flat Neurology: alert, oriented, follow commands Assessment Assessment IMP ESRD ANEMIA DM II HTN HYPOGLYCEMIA ENCEPHALOPATHY-RESOLVED RIGHT SIDED RIB FX ELEVATED TROPONIN PLAN HD TOMORROW SU[facility] CARDIOLOGY JAVID MASSEY MD May 04, 2017 11:27
[2017-05-04 15:00] VITALS: BP 123/57
[2017-05-04] MEDS: ONDANSETRON PF 4 MG/2 ML VIAL. IV PRN ×2 (17:26→21:26)
[2017-05-04 19:38] VITALS: BP 140/60
[2017-05-04] MEDS: ATORVASTATIN CALCIUM 20 MG TABLET PO SCH (21:25)
[2017-05-04] MEDS: oxyCODONE/APAP 5/325 1 TAB TABLET PO PRN (21:26)
[2017-05-04 23:56] VITALS: BP 131/53
[2017-05-05 03:50] VITALS: BP 130/58
[2017-05-05] MEDS: PANTOPRAZOLE 40 MG TABLET.DR. PO SCH (06:52)
[2017-05-05] MEDS: LEVOTHYROXINE 75 MCG TABLET PO SCH (06:52)
[2017-05-05 07:00] VITALS: BP 127/62
[2017-05-05] MEDS: SEVELAMER CARBONATE 800 MG TABLET. PO SCH ×5 (07:30→16:37)
[2017-05-05] MEDS: CARVEDILOL 6.25 MG TABLET. PO SCH ×2 (08:00→16:37)
[2017-05-05] MEDS ORDERED: DIALYSIS PATIENT. MC PRN (08:30)
[2017-05-05] MEDS ORDERED: cloNIDine HCL 0.1 MG TABLET PO PRN (08:30)
[2017-05-05] MEDS ORDERED: diphenhydrAMINE 50 MG/ML VIAL IV PRN ×2 (08:30)
[2017-05-05] MEDS ORDERED: ALBUMIN HUMAN 25% 200 ML IV PRN (08:30)
[2017-05-05] MEDS ORDERED: ACETAMINOPHEN 500 MG TABLET PO PRN (08:30)
[2017-05-05] MEDS ORDERED: IV NORMAL SALINE 1000ML BAG 1,000 ML IV PRN ×2 (08:30)
[2017-05-05] MEDS ORDERED: LABETALOL 20 MG/4 ML DISP.SYRIN. IVP PRN (08:30)
[2017-05-05] MEDS: ASPIRIN CHEWABLE 81 MG TABLET. PO SCH (08:50)
[2017-05-05] MEDS: LOSARTAN POTASSIUM 50 MG TABLET. PO SCH (08:50)
[2017-05-05] MEDS: amLODIPine BESYLATE 10 MG TABLET PO SCH (08:51)
[2017-05-05] MEDS: FUROSEMIDE 40 MG TABLET. PO SCH (08:51)
[2017-05-05] MEDS: SERTRALINE 25 MG TABLET. PO SCH (08:51)
[2017-05-05] MEDS: FOLIC/VIT B COMP W-C (RENAL) TABLET. PO SCH (08:51)
[2017-05-05] MEDS: CLOPIDOGREL BISULFATE 75 MG TABLET PO SCH (08:51)
[2017-05-05] MEDS: oxyCODONE/APAP 5/325 1 TAB TABLET PO PRN (08:53)
--- NOTE | 2017-05-05 09:12 | PDOC ---
Provider Note Provider Note vss, no temp, hypoglycemia resolved off insulin- ckd same- in dialysis- for snu eval re weakness, pain, xr ok- meds same now XIAO MCINTYRE MD May 05, 2017 09:12
--- NOTE | 2017-05-05 11:01 | PDOC ---
PROGRESS NOTES Subjective Subjective SEEN IN FOLLOW UP OF ESRD Objective Objective Vital Signs Date Time Temp Pulse Resp B/P (MAP) Pulse Ox O2 Delivery O2 Flow Rate FiO2 05/05/17 08:53 Room Air 05/05/17 07:24 2.0 05/05/17 07:00 98.2 80 16 127/62 (83) 93 98.2 Intake and Output 05/05/17 07:00 Intake Total 600 ml Output Total 0 ml Balance 600 ml Intake Oral 600 ml Output Urine Total 0 ml Physical Exam Abdomen: Normal bowel sounds, Soft, No tenderness, No hepatosplenomegaly, No masses Heart: Regular rate, Normal S1, Normal S2, No murmurs, Gallops Extremities: No clubbing, No cyanosis, No edema, Normal pulses, No tenderness/ swelling General: Alert, Oriented X3, Cooperative, No acute distress Lungs: Clear to auscultation, Normal air movement Psych/Mental Status: Mental status NL, Mood NL Diagnosis RENAL FAILURE: ESRD Assessment Assessment Problems Medical Problems: (1) Abdominal wall contusion Status: Acute (2) Elevated troponin Status: Acute (3) End stage renal disease Status: Acute (4) Fall from standing Status: Acute (5) Hypoglycemia associated with diabetes Status: Acute (6) Syncope Status: Acute Plan Plan of Care SEEN ON DIALYSIS. NEEDS SOLUTE CLEARANCE AND EDEMA CONTROL. CONT TO WORK ON CAUSE OF FALLS. NEEDS SNU STAY WITH PT/OT. EPOGEN FOR ANEMIA Comment Review of Relevant I have reviewed the following items qing (where applicable) has been applied. Labs Laboratory Tests Test 05/03/17 11:02 05/03/17 11:28 05/03/17 20:59 05/04/17 03:35 Hepatitis B Surface Antibody Reactive (.) Glucose (Fingerstick) 188 mg/dL (70-99) 298 mg/dL (70-99) White Blood Count 7.4 x10^3/uL (4.0-11.0) Red Blood Count 3.18 x10^6/uL (3.50-5.40) Hemoglobin 10.3 g/dL (12.0-15.5) Hematocrit 31.7 % (36.0-47.0) Mean Corpuscular Volume 100 fL (79-100) Mean Corpuscular Hemoglobin 32 pg (25-35) Mean Corpuscular Hemoglobin Concent 32 g/dL (31-37) Red Cell Distribution Width 15.7 % (11.5-14.5) Platelet Count 173 x10^3/uL (140-400) Sodium Level 138 mmol/L (136-145) Potassium Level 3.9 mmol/L (3.5-5.1) Chloride Level 101 mmol/L (98-107) Carbon Dioxide Level 28 mmol/L (21-32) Anion Gap 9 (6-14) Blood Urea Nitrogen 16 mg/dL (7-20) Creatinine 3.5 mg/dL (0.6-1.0) Estimated GFR (Cockcroft-Gault) 15.2 Glucose Level 166 mg/dL (70-99) Calcium Level 8.0 mg/dL (8.5-10.1) Test 05/04/17 07:26 05/04/17 11:51 05/04/17 17:11 05/04/17 21:57 Glucose (Fingerstick) 128 mg/dL (70-99) 162 mg/dL (70-99) 173 mg/dL (70-99) 167 mg/dL (70-99) Test 05/05/17 08:28 Glucose (Fingerstick) 106 mg/dL (70-99) Laboratory Tests Test 05/04/17 11:51 05/04/17 17:11 05/04/17 21:57 05/05/17 08:28 Glucose (Fingerstick) 162 mg/dL (70-99) 173 mg/dL (70-99) 167 mg/dL (70-99) 106 mg/dL (70-99) Microbiology 05/02/17 Blood Culture - Preliminary, Resulted NO GROWTH AFTER 2 DAYS Medications Current Medications Dextrose 1,000 ml @ 200 mls/hr 1X ONCE IV Last administered on 05/02/17 10: 58; Start 05/02/17 at 10:45; Stop 05/02/17 at 15:44; Status DC Sodium Chloride 1,000 ml @ 1,000 mls/hr Q1H IV Last administered on 12:29; Start 05/02/17 at 10:56; Stop 05/02/17 at 11:55; Status DC Sodium Chloride (Normal Saline Flush) 10 ml QSHIFT PRN IV AFTER MEDS AND BLOOD DRAWS; Start 05/02/17 at 11:00 Ondansetron HCl (Zofran) 4 mg PRN Q8HRS PRN IV NAUSEA/VOMITING; Start at 12:15; Stop 05/03/17 at 12:14; Status DC Fentanyl Citrate (Fentanyl 2ml Vial) 50 mcg PRN Q1HR PRN IV PAIN Last administered on 05/02/17 23:11; Start 05/02/17 at 12:15; Stop 05/03/17 at 12 :14; Status DC Sodium Chloride 1,000 ml 1213 STAT IV ; Start 05/02/17 at 12:13; Stop at 12:14; Status UNV Acetaminophen (Tylenol) 650 mg PRN Q4HRS PRN PO FEVER; Start 05/02/17 at 12:15 ; Stop 05/03/17 at 12:14; Status DC Sodium Chloride 1,000 ml @ 1,000 mls/hr Q1H IV ; Start 05/02/17 at 12:30; Stop 05/02/17 at 13:29; Status DC Furosemide (Lasix) 40 mg 1X ONCE IVP Last administered on 05/02/17 16:52; Start 05/02/17 at 16:30; Stop 05/02/17 at 16:31; Status DC Sevelamer Carbonate (Renvela) 800 mg TIDAC PO Last administered on 05/05/17 08:52; Start 05/02/17 at 17:00 Amlodipine Besylate (Norvasc) 10 mg DAILY PO Last administered on 05/04/17 07 :45; Start 05/03/17 at 10:00 Aspirin (Children'S Aspirin) 81 mg DAILY PO Last administered on 05/04/17 07: 45; Start 05/03/17 at 10:00 Atorvastatin Calcium (Lipitor) 20 mg HS PO Last administered on 05/04/17 21: 25; Start 05/03/17 at 21:00 Carvedilol (Coreg) 6.25 mg BIDWMEALS PO Last administered on 05/04/17 07:46; Start 05/03/17 at 10:00 Clopidogrel Bisulfate (Plavix) 75 mg DAILY PO Last administered on 05/04/17 07:45; Start 05/03/17 at 10:00 Vitamin B Complex/ Vitamin C (Johana-Manuel) 1 tab DAILY PO Last administered on 07:44; Start 05/03/17 at 10:00 Furosemide (Lasix) 40 mg DAILY PO Last administered on 05/04/17 07:44; Start 05/03/17 at 10:00 Levothyroxine Sodium (Synthroid) 75 mcg DAILYAC PO Last administered on 07:45; Start 05/03/17 at 10:00 Oxycodone/ Acetaminophen (Percocet 5/325) 2 tab PRN Q4HRS PRN PO MODERATE - SEVERE PAIN Last administered on 05/05/17 08:53; Start 05/03/17 at 09:00 Sertraline HCl (Zoloft) 25 mg DAILY PO Last administered on 05/04/17 07:44; Start 05/03/17 at 10:00 Tramadol HCl (Ultram) 50 mg PRN Q6HRS PRN PO MILD PAIN Last administered on 12:26; Start 05/03/17 at 09:00 Trazodone HCl (Desyrel) 50 mg PRN QHS PRN PO INSOMNIA; Start 05/03/17 at 09:00 Pantoprazole Sodium (Protonix) 40 mg DAILYAC PO Last administered on 07:45; Start 05/03/17 at 10:00 Hydralazine HCl (Apresoline) 100 mg TID PO Last administered on 05/04/17 21: 26; Start 05/03/17 at 10:00 Losartan Potassium (Cozaar) 100 mg DAILY PO Last administered on 05/04/17 07: 46; Start 05/03/17 at 10:00 Oxycodone/ Acetaminophen (Percocet 5/325) 1 tab PRN Q4HRS PRN PO MODERATE - SEVERE PAIN; Start 05/03/17 at 09:15 Sodium Chloride 1,000 ml @ 1,000 mls/hr Q1H PRN IV hypotension; Start at 13:11; Stop 05/03/17 at 19:10; Status DC Acetaminophen (Tylenol) 500 mg 1X PRN PRN PO MILD PAIN / TEMP; Start 05/03/17 at 13:15; Stop 05/04/17 at 13:14; Status DC Diphenhydramine HCl (Benadryl) 25 mg 1X PRN PRN IV ITCHING; Start 05/03/17 at 13:15; Stop 05/04/17 at 13:14; Status DC Diphenhydramine HCl (Benadryl) 25 mg 1X PRN PRN IV ITCHING; Start 05/03/17 at 13:15; Stop 05/04/17 at 13:14; Status DC Labetalol HCl (Normodyne) 10 mg PRN Q1HR PRN IVP SBP > 180; Start 05/03/17 at 13:15; Stop 05/04/17 at 13:14; Status DC Sodium Chloride 1,000 ml @ 400 mls/hr Q2H30M PRN IV PATENCY; Start 05/03/17 at 13:11; Stop 05/04/17 at 01:10; Status DC Info (PHARMACY MONITORING -- do not chart) 1 each PRN DAILY PRN MC SEE COMMENTS ; Start 05/03/17 at 13:15 Ondansetron HCl (Zofran) 4 mg PRN Q6HRS PRN IV NAUSEA/VOMITING Last administered on 05/04/17t 21:26; Start 05/04/17 at 17:30 Sodium Chloride 1,000 ml @ 1,000 mls/hr Q1H PRN IV hypotension; Start at 08:30; Stop 05/05/17 at 14:29 Albumin Human 200 ml @ 200 mls/hr 1X PRN PRN IV Hypotension; Start 05/05/17 at 08:30; Stop 05/05/17 at 14:29 Acetaminophen (Tylenol) 500 mg 1X PRN PRN PO MILD PAIN / TEMP; Start 05/05/17 at 08:30; Stop 05/06/17 at 08:29 Diphenhydramine HCl (Benadryl) 25 mg 1X PRN PRN IV ITCHING; Start 05/05/17 at 08:30; Stop 05/06/17 at 08:29 Diphenhydramine HCl (Benadryl) 25 mg 1X PRN PRN IV ITCHING; Start 05/05/17 at 08:30; Stop 05/06/17 at 08:29 Labetalol HCl (Normodyne) 10 mg PRN Q1HR PRN IVP SBP > 180; Start 05/05/17 at 08:30; Stop 05/06/17 at 08:29 Clonidine HCl (Catapres) 0.1 mg 1X PRN PRN PO SBP > 180; Start 05/05/17 at 08: 30; Stop 05/06/17 at 08:29 Sodium Chloride 1,000 ml @ 400 mls/hr Q2H30M PRN IV PATENCY; Start 05/05/17 at 08:30; Stop 05/05/17 at 20:29 Info (PHARMACY MONITORING -- do not chart) 1 each PRN DAILY PRN MC SEE COMMENTS ; Start 05/05/17 at 08:30; Status UNV Active Scripts Active Lantus Solostar (Insulin Glargine,Hum.rec.anlog) 100 Unit/1 Ml Insuln.pen 4 Unit SQ HS 30 Days Carvedilol 3.125 Mg Tablet 6.25 Mg PO BIDWMEALS 30 Days Tramadol Hcl 50 Mg Tablet 1 Tab PO PRN Q6HRS PRN Trazodone Hcl 50 Mg Tablet 50 Mg PO PRN QHS PRN 30 Days Sertraline Hcl 25 Mg Tablet 25 Mg PO DAILY 30 Days Percocet 5-325 Mg Tablet (Oxycodone/Acetaminophen) 1 Each Tablet 1-2 Tab PO Q4- 6HRS Reported Lipitor (Atorvastatin Calcium) 20 Mg Tablet 20 Mg PO HS Amlodipine Besylate 10 Mg Tablet 10 Mg PO DAILY Plavix (Clopidogrel Bisulfate) 75 Mg Tablet 75 Mg PO DAILY Aspirin 81 Mg Tab.chew 81 Mg PO DAILY Synthroid (Levothyroxine Sodium) 75 Mcg Tablet 75 Mcg PO DAILYAC Cozaar (Losartan Potassium) 100 Mg Tablet 100 Mg PO DAILY Renvela (Sevelamer Carbonate) 800 Mg Tablet 800 Mg PO TIDAC Nephro-Manuel Tablet (Folic Acid/Vitamin B Comp W-C) 0.8 Mg Tablet 0.8 Mg PO DAILY Esomeprazole Capsule (Esomeprazole Strontium) 40 Mg Capsule.dr 40 Mg PO DAILYAC Hydralazine Hcl 100 Mg Tablet 100 Mg PO TID Lasix (Furosemide) 40 Mg Tablet 40 Mg PO DAILY Vitals/I & O Vital Sign - Last 24 Hours 05/04/17 05/04/17 05/04/17 05/04/17 12:19 15:00 16:00 19:38 Temp 98.0 97.5 98.0 97.5 Pulse 80 80 80 78 Resp 16 18 B/P (MAP) 115/52 123/57 (79) 123/57 140/60 (86) Pulse Ox 95 93 O2 Delivery Room Air Nasal Cannula O2 Flow Rate 3.0 05/04/17 05/04/17 05/04/17 05/04/17 20:00 21:26 21:26 22:47 Pulse 78 B/P (MAP) 140/60 O2 Delivery Nasal Cannula Room Air Room Air O2 Flow Rate 2.0 05/04/17 05/05/17 05/05/17 05/05/17 23:56 03:50 07:00 07:24 Temp 98.0 98.0 98.2 98.0 98.0 98.2 Pulse 79 78 80 Resp 18 18 16 B/P (MAP) 131/53 (79) 130/58 (82) 127/62 (83) Pulse Ox 100 100 93 O2 Delivery Room Air Room Air Room Air Nasal Cannula O2 Flow Rate 2.0 05/05/17 08:53 O2 Delivery Room Air Intake and Output 05/04/17 05/04/17 05/05/17 15:00 23:00 07:00 Intake Total 400 ml 200 ml Output Total 0 ml Balance 400 ml 200 ml NIKKI DECKER MD May 05, 2017 11:01
[2017-05-05 11:36] LABS: HEMATOCRIT 31.9 % (36.0-47.0); HEMOGLOBIN 10.3 g/dL (12.0-15.5); RED BLOOD COUNT 3.25 x10^6/uL (3.50-5.40); RED CELL DISTRIBUTION WIDTH 15.6 % (11.5-14.5); WHITE BLOOD COUNT 9.9 x10^3/uL (4.0-11.0)
[2017-05-05 11:48] LABS: CALCIUM 8.2 mg/dL (8.5-10.1); CREATININE 1.9 mg/dL (0.6-1.0); GFR 30.7; POTASSIUM 3.6 mmol/L (3.5-5.1)
[2017-05-05 15:00] VITALS: BP 134/67
[2017-05-05 19:00] VITALS: BP 138/66
[2017-05-05] MEDS: ATORVASTATIN CALCIUM 20 MG TABLET PO SCH (21:09)
[2017-05-05 23:49] VITALS: BP 139/59
[2017-05-06 03:41] VITALS: BP 140/64
--- NOTE | 2017-05-06 06:57 | PDOC ---
Provider Note Provider Note sleeping, bp good on mult meds- glucose better, labs same, creat 1.9 afte rdialysis- no new probs- rehab screen XIAO MCINTYRE MD May 06, 2017 06:57
[2017-05-06 07:00] VITALS: BP 150/61
[2017-05-06] MEDS: SEVELAMER CARBONATE 800 MG TABLET. PO SCH ×3 (07:30→17:13)
[2017-05-06] MEDS: FOLIC/VIT B COMP W-C (RENAL) TABLET. PO SCH (09:28)
[2017-05-06] MEDS: CLOPIDOGREL BISULFATE 75 MG TABLET PO SCH (09:29)
[2017-05-06] MEDS: ASPIRIN CHEWABLE 81 MG TABLET. PO SCH (09:29)
[2017-05-06] MEDS: LEVOTHYROXINE 75 MCG TABLET PO SCH (09:29)
[2017-05-06] MEDS: FUROSEMIDE 40 MG TABLET. PO SCH (09:29)
[2017-05-06] MEDS: LOSARTAN POTASSIUM 50 MG TABLET. PO SCH (09:30)
[2017-05-06] MEDS: PANTOPRAZOLE 40 MG TABLET.DR. PO SCH (09:30)
[2017-05-06] MEDS: CARVEDILOL 6.25 MG TABLET. PO SCH ×2 (09:30→17:13)
[2017-05-06] MEDS: SERTRALINE 25 MG TABLET. PO SCH (09:30)
[2017-05-06] MEDS: amLODIPine BESYLATE 10 MG TABLET PO SCH (09:31)
[2017-05-06 11:00] VITALS: BP 124/51
[2017-05-06 15:00] VITALS: BP 129/55
[2017-05-06 19:25] VITALS: BP 135/81
[2017-05-06] MEDS: ATORVASTATIN CALCIUM 20 MG TABLET PO SCH (21:39)
[2017-05-06 23:25] VITALS: BP 136/63
[2017-05-07 03:25] VITALS: BP 129/60
[2017-05-07 06:52] VITALS: BP 141/55
--- NOTE | 2017-05-07 07:58 | PDOC ---
Provider Note Provider Note bp good on current meds, vss, no temp- no new labs- cont same, placement - glucose ok off insulin XIAO MCINTYRE MD May 07, 2017 07:58
[2017-05-07] MEDS: SEVELAMER CARBONATE 800 MG TABLET. PO SCH ×3 (09:16→17:47)
[2017-05-07] MEDS: FOLIC/VIT B COMP W-C (RENAL) TABLET. PO SCH (09:17)
[2017-05-07] MEDS: CARVEDILOL 6.25 MG TABLET. PO SCH ×2 (09:17→17:50)
[2017-05-07] MEDS: LOSARTAN POTASSIUM 50 MG TABLET. PO SCH (09:17)
[2017-05-07] MEDS: amLODIPine BESYLATE 10 MG TABLET PO SCH (09:18)
[2017-05-07] MEDS: CLOPIDOGREL BISULFATE 75 MG TABLET PO SCH (09:19)
[2017-05-07] MEDS: FUROSEMIDE 40 MG TABLET. PO SCH (09:19)
[2017-05-07] MEDS: PANTOPRAZOLE 40 MG TABLET.DR. PO SCH (09:20)
[2017-05-07] MEDS: ASPIRIN CHEWABLE 81 MG TABLET. PO SCH (09:20)
[2017-05-07] MEDS: LEVOTHYROXINE 75 MCG TABLET PO SCH (09:20)
[2017-05-07] MEDS: SERTRALINE 25 MG TABLET. PO SCH (09:22)
[2017-05-07 10:46] VITALS: BP 149/62
[2017-05-07] MEDS ORDERED: MAGNESIUM SULFATE 2GM 50 ML IV PRN (13:30)
--- NOTE | 2017-05-07 13:35 | PDOC ---
SUBJECTIVE ROS ESRD - on HD TTSAt Rib pain remains bearable, now constipated and so got prune juice last pm - no BM yet CVS: no Orthopnea, no CP RESP: no SOB, no LEONARD GI: no Nausea, no Vomiting : no Dysuria, no Urgency OBJECTIVE Vital Signs Vital Signs Date Time Temp Pulse Resp B/P (MAP) Pulse Ox O2 Delivery O2 Flow Rate FiO2 05/07/17 11:05 Room Air 05/07/17 10:46 98.0 82 16 149/62 (91) 95 98.0 05/06/17 11:05 2.0 I & 0 Intake and Output 05/07/17 07:00 Intake Total 1000 ml Output Total 50 ml Balance 950 ml Intake Oral 1000 ml Urine/Stool Mix 50 ml # Bowel Movements 2 PHYSICAL EXAM Physical Exam GEN: Awake, Oriented x 3, In no distress EYES: Vision Unchanged, Conjunctiva Normal EN: No EN Drainage, Mucous Membranes moist NECK: no JVD, no JVP, Supple, no Thyromegaly CVS: S1S2, + Murmur, No Gallop, No Rub,++ Edema RESP: no Rales, no Rhonchi,no Acc. Muscle Use GI: BS + ve, NO Bruit, Non Tender, Non Distended : no CVA tenderness, no Suprapubic Tenderness DIAGNOSIS/ASSESSMENT Assessment & Plan ESRD: Current fluid and E-lyte status does not necessitate emergent need for dialysis. Will re-evaluate for dialysis in the am and continue on TTSat schedule. Constipation - choice of Laxative will depend on K levelsince she got prune juice last pm ANEMIA; Aranap as ordered, Transfuse with next HD as needed Edema - challenge EDW withHD in am HTN: Current BP meds as reviewed. See orders for changes. BONE & MINERAL: follow phos Discussed Plan of Care with family [] at bedside [] over the phone Problems: COMMENT/RELEVANT DATA Meds Current Medications Medications (Trade) Dose Ordered Sig/Sahil Start Time Stop Time Status Last Admin Dose Admin Acetaminophen (Tylenol) 500 mg 1X PRN PRN 05/05/17 08:30 05/06/17 08:29 DC Albumin Human 200 ml @ 200 mls/hr 1X PRN PRN 05/05/17 08:30 05/05/17 14:29 DC Amlodipine Besylate (Norvasc) 10 mg DAILY 05/03/17 10:00 05/07/17 09:18 10 MG Aspirin (Children'S Aspirin) 81 mg DAILY 05/03/17 10:00 05/07/17 09:20 81 MG Atorvastatin Calcium (Lipitor) 20 mg HS 05/03/17 21:00 05/06/17 21:39 20 MG Carvedilol (Coreg) 6.25 mg BIDWMEALS 05/03/17 10:00 05/07/17 09:17 6.25 MG Clonidine HCl (Catapres) 0.1 mg 1X PRN PRN 05/05/17 08:30 05/06/17 08:29 DC Clopidogrel Bisulfate (Plavix) 75 mg DAILY 05/03/17 10:00 05/07/17 09:19 75 MG Dextrose 1,000 ml @ 200 mls/hr 1X ONCE 05/02/17 10:45 05/02/17 15:44 DC 05/02/17 10:58 200 MLS/HR Diphenhydramine HCl (Benadryl) 25 mg 1X PRN PRN 05/05/17 08:30 05/06/17 08:29 DC Fentanyl Citrate (Fentanyl 2ml Vial) 50 mcg PRN Q1HR PRN 05/02/17 12:15 05/03/17 12:14 DC 05/02/17 23:11 50 MCG Furosemide (Lasix) 40 mg DAILY 05/03/17 10:00 05/07/17 09:19 40 MG Hydralazine HCl (Apresoline) 100 mg TID 05/03/17 10:00 05/07/17 09:19 100 MG Info (PHARMACY MONITORING -- do not chart) 1 each PRN DAILY PRN 05/05/17 08:30 UNV Labetalol HCl (Normodyne) 10 mg PRN Q1HR PRN 05/05/17 08:30 05/06/17 08:29 DC Levothyroxine Sodium (Synthroid) 75 mcg DAILYAC 05/03/17 10:00 05/07/17 09:20 75 MCG Losartan Potassium (Cozaar) 100 mg DAILY 05/03/17 10:00 05/07/17 09:17 100 MG Ondansetron HCl (Zofran) 4 mg PRN Q6HRS PRN 05/04/17 17:30 05/04/17 21:26 4 MG Oxycodone/ Acetaminophen (Percocet 5/325) 1 tab PRN Q4HRS PRN 05/03/17 09:15 05/06/17 09:29 1 TAB Pantoprazole Sodium (Protonix) 40 mg DAILYAC 05/03/17 10:00 05/07/17 09:20 40 MG Sertraline HCl (Zoloft) 25 mg DAILY 05/03/17 10:00 05/07/17 09:22 25 MG Sevelamer Carbonate (Renvela) 800 mg TIDAC 05/02/17 17:00 05/07/17 12:29 800 MG Sodium Chloride 1,000 ml @ 400 mls/hr Q2H30M PRN 05/05/17 08:30 05/05/17 20:29 DC Sodium Chloride (Normal Saline Flush) 10 ml QSHIFT PRN 05/02/17 11:00 Tramadol HCl (Ultram) 50 mg PRN Q6HRS PRN 05/03/17 09:00 05/03/17 12:26 50 MG Trazodone HCl (Desyrel) 50 mg PRN QHS PRN 05/03/17 09:00 Vitamin B Complex/ Vitamin C (Johana-Manuel) 1 tab DAILY 05/03/17 10:00 05/07/17 09:17 1 TAB Lab Laboratory Tests Test 05/06/17 17:33 05/06/17 21:39 05/07/17 07:05 05/07/17 12:06 Glucose (Fingerstick) 176 mg/dL (70-99) 134 mg/dL (70-99) 130 mg/dL (70-99) 241 mg/dL (70-99) GAMAL GOMES MD May 07, 2017 13:35
[2017-05-07] MEDS ORDERED: SORBITOL 70% 30 ML SOLUTION. PO PRN (13:45)
[2017-05-07] MEDS ORDERED: SODIUM POLYSTYRENE SULFONATE 15 GM/60 ML ORAL.SUSP. PO PRN (13:45)
[2017-05-07 15:00] VITALS: BP 131/56
[2017-05-07 15:00] LABS: CALCIUM 8.3 mg/dL (8.5-10.1); CREATININE 5.5 mg/dL (0.6-1.0); POTASSIUM 4.6 mmol/L (3.5-5.1)
[2017-05-07 19:55] VITALS: BP 128/84
[2017-05-07] MEDS: ATORVASTATIN CALCIUM 20 MG TABLET PO SCH (20:49)
[2017-05-07 23:21] VITALS: BP 127/91
[2017-05-08 03:14] VITALS: BP 119/59
[2017-05-08 04:49] LABS: ALBUMIN 2.4 g/dL (3.4-5.0); CREATININE 5.9 mg/dL (0.6-1.0); GFR 8.3; MAGNESIUM 2.1 mg/dL (1.8-2.4); PHOSPHORUS 2.6 mg/dL (2.6-4.7); POTASSIUM 4.5 mmol/L (3.5-5.1)
[2017-05-08 07:00] VITALS: BP 137/61
[2017-05-08] MEDS: CARVEDILOL 6.25 MG TABLET. PO SCH (08:00)
[2017-05-08] MEDS ORDERED: IV NORMAL SALINE 1000ML BAG 1,000 ML IV PRN (08:09)
[2017-05-08] MEDS ORDERED: diphenhydrAMINE 50 MG/ML VIAL IV PRN ×2 (08:15)
[2017-05-08] MEDS ORDERED: ACETAMINOPHEN 500 MG TABLET PO PRN (08:15)
[2017-05-08] MEDS ORDERED: ALBUMIN HUMAN 25% 200 ML IV PRN (08:15)
[2017-05-08] MEDS ORDERED: DIALYSIS PATIENT. MC PRN ×2 (08:15)
[2017-05-08] MEDS ORDERED: POLYETHYLENE GLYCOL 3350 17 GM PACKET. PO PRN (08:30)
[2017-05-08] MEDS ORDERED: MAGNESIUM HYDROXIDE 2,400 MG/30 ML ORAL.SUSP. PO PRN (08:30)
--- NOTE | 2017-05-08 08:31 | PDOC ---
SUBJECTIVE Subjective constipated , feels better in general , still weak to go home, BS ok without insulin OBJECTIVE Vital Signs Vital Signs Date Time Temp Pulse Resp B/P (MAP) Pulse Ox O2 Delivery O2 Flow Rate FiO2 05/08/17 07:00 98.1 74 18 137/61 (86) 96 Room Air 98.1 05/08/17 03:14 98.6 72 18 119/59 (79) 96 Room Air 98.6 05/07/17 23:21 98.2 72 16 127/91 (103) 93 Room Air 98.2 05/07/17 20:49 66 128/84 05/07/17 20:00 Room Air 05/07/17 19:55 97.8 66 18 128/84 (99) 100 Room Air 97.8 05/07/17 17:50 82 149/62 05/07/17 15:17 82 149/62 05/07/17 15:00 98.0 74 16 131/56 (81) 100 Room Air 98.0 05/07/17 11:05 Room Air 05/07/17 10:46 98.0 82 16 149/62 (91) 95 Room Air 98.0 05/07/17 09:19 77 141/55 05/07/17 09:18 77 141/55 05/07/17 09:17 77 141/55 05/07/17 09:17 77 141/55 I & O Intake and Output 05/08/17 07:00 Intake Total 1100 ml Balance 1100 ml Intake Oral 1100 ml # Voids 1 PHYSICAL EXAM Physical Exam lungs clear RUE decrease edema also less edema LE abd soft heart RRR ASSESSMENT/PLAN Assessment/Plan plan to transfer to [facility] when bed available Problems: COMMENT Lab Laboratory Tests Test 05/07/17 12:06 05/07/17 13:54 05/07/17 17:24 05/07/17 21:31 Glucose (Fingerstick) 241 mg/dL (70-99) 155 mg/dL (70-99) 158 mg/dL (70-99) Sodium Level 132 mmol/L (136-145) Potassium Level 4.6 mmol/L (3.5-5.1) Chloride Level 95 mmol/L (98-107) Carbon Dioxide Level 27 mmol/L (21-32) Anion Gap 10 (6-14) Blood Urea Nitrogen 33 mg/dL (7-20) Creatinine 5.5 mg/dL (0.6-1.0) Estimated GFR (Cockcroft-Gault) 9.0 Glucose Level 213 mg/dL (70-99) Calcium Level 8.3 mg/dL (8.5-10.1) Test 05/08/17 04:05 05/08/17 07:23 Hemoglobin 9.5 g/dL (12.0-15.5) Sodium Level 132 mmol/L (136-145) Potassium Level 4.5 mmol/L (3.5-5.1) Chloride Level 96 mmol/L (98-107) Carbon Dioxide Level 27 mmol/L (21-32) Anion Gap 9 (6-14) Blood Urea Nitrogen 38 mg/dL (7-20) Creatinine 5.9 mg/dL (0.6-1.0) Estimated GFR (Cockcroft-Gault) 8.3 Glucose Level 163 mg/dL (70-99) Calcium Level 8.0 mg/dL (8.5-10.1) Phosphorus Level 2.6 mg/dL (2.6-4.7) Magnesium Level 2.1 mg/dL (1.8-2.4) Albumin 2.4 g/dL (3.4-5.0) Glucose (Fingerstick) 131 mg/dL (70-99) BRENDA PABON MD May 08, 2017 08:31
[2017-05-08] MEDS: SEVELAMER CARBONATE 800 MG TABLET. PO SCH ×2 (08:32→14:10)
--- NOTE | 2017-05-08 08:36 | PDOC3 ---
*Discharge Summary* Date of Admission: May 02, 2017 Date of Discharge: May 08, 2017 Admitting Diagnosis Problems Medical Problems: (1) Abdominal wall contusion Status: Acute (2) Elevated troponin Status: Acute (3) End stage renal disease Status: Acute (4) Fall from standing Status: Acute (5) Hypoglycemia associated with diabetes Status: Acute (6) Syncope Status: Acute Problems: Final Diagnosis 1- Hypoglycemia , off insulin , BS ok 2-elevated troponin : Mild ; most probably demand ischemia in the setting of fall and CKD 3-swelling LUE , venous doppler continue elevation 4-ESRD on dialysis 5-CAD/HTN 6-right side pain and Fall, near syncope sustaining right rib fractures. Suspect due to weakness/debility 7. CAD s/p recent PCI/BMS to RCA; stable. 8. 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 NT Pro BNP >35 ,000. CXR with vascular congestion continue dialysis and fluid restriction 9. Hyperlipidemia; LDL 26 (01/2017) 10. Diabetes, II with hypoglycemia upon arrival 11. Hypothyroidism; TSH WNL 12-constipation improved Problems Medical Problems: (1) Abdominal wall contusion Status: Acute (2) Elevated troponin Status: Acute (3) End stage renal disease Status: Acute (4) Fall from standing Status: Acute (5) Hypoglycemia associated with diabetes Status: Acute (6) Syncope Status: Acute CONSULTS Nephrology, Cardiology Procedures CT head to evaluate fall neg, CT abd and pelvis, RUE venous doppler neg, R shoulder xray Brief Hospital Course Ms. Doyle is a 81 old [sex] who presented with [ ] Disposition/Orders: D/C to Another Facility CONDITION AT DISCHARGE: Improved Diet: Renal, Consistent Carbohydrate Home Meds Active Scripts Insulin Glargine,Hum.rec.anlog (LANTUS SOLOSTAR) 100 Unit/1 Ml Insuln.pen, 4 UNIT SQ HS for 30 Days, #1 SYR 5 Refills Prov:BRENDA PABON MD 02/22/17 Carvedilol (CARVEDILOL) 3.125 Mg Tablet, 6.25 MG PO BIDWMEALS for 30 Days, #120 TAB 6 Refills Prov:BRENDA PABON MD 02/17/17 Tramadol Hcl (TRAMADOL HCL) 50 Mg Tablet, 1 TAB PO PRN Q6HRS Y for PAIN, #20 TAB Prov:KVNG ALLRED MD 10/29/16 Trazodone Hcl (TRAZODONE HCL) 50 Mg Tablet, 50 MG PO PRN QHS Y for INSOMNIA for 30 Days, TAB 4 Refills Prov:BRENDA PABON MD 03/16/16 Sertraline Hcl (SERTRALINE HCL) 25 Mg Tablet, 25 MG PO DAILY for 30 Days, TAB 6 Refills Prov:BRENDA PABON MD 12/03/15 Oxycodone/Apap 5-325 (PERCOCET 5-325 MG TABLET) 1 Each Tablet, 1-2 TAB PO Q4- 6HRS, #40 TAB 0 Refills Prov:BYRON LAGUNA MD 04/17/14 Reported Medications Atorvastatin Calcium (LIPITOR) 20 Mg Tablet, 20 MG PO HS for FOR CHOLESTEROL, # 30 TAB 0 Refills 04/06/14 Amlodipine Besylate (AMLODIPINE BESYLATE) 10 Mg Tablet, 10 MG PO DAILY, TAB 03/05/14 Clopidogrel Bisulfate (PLAVIX) 75 Mg Tablet, 75 MG PO DAILY for TO PREVENT BLOOD CLOTS, #30 TAB 0 Refills 03/05/14 Aspirin (ASPIRIN) 81 Mg Tab.chew, 81 MG PO DAILY, TAB.CHEW 03/05/14 Levothyroxine Sodium (SYNTHROID) 75 Mcg Tablet, 75 MCG PO DAILYAC for THYROID SUPPLEMENT, #30 TAB 0 Refills 11/22/13 Losartan Potassium (COZAAR) 100 Mg Tablet, 100 MG PO DAILY, TAB 11/22/13 Sevelamer Carbonate (RENVELA) 800 Mg Tablet, 800 MG PO TIDAC 11/22/13 Folic Acid/Vitamin B Comp W-C (NEPHRO-GEETA TABLET) 0.8 Mg Tablet, 0.8 MG PO DAILY 11/22/13 Esomeprazole Strontium (ESOMEPRAZOLE CAPSULE) 40 Mg Capsule.dr, 40 MG PO DAILYAC , #30 CAP 0 Refills 11/22/13 Hydralazine Hcl (HYDRALAZINE HCL) 100 Mg Tablet, 100 MG PO TID, TAB 11/22/13 Furosemide (LASIX) 40 Mg Tablet, 40 MG PO DAILY, TAB 11/22/13 Scheduled Amlodipine Besylate (Amlodipine Besylate), 10 MG PO DAILY, (Reported) Aspirin (Aspirin), 81 MG PO DAILY, (Reported) Atorvastatin Calcium (Lipitor), 20 MG PO HS, (Reported) Carvedilol (Carvedilol), 6.25 MG PO BIDWMEALS Clopidogrel Bisulfate (Plavix), 75 MG PO DAILY, (Reported) Esomeprazole Strontium (Esomeprazole Capsule), 40 MG PO DAILYAC, (Reported) Folic Acid/Vitamin B Comp W-C (Nephro-Geeta Tablet), 0.8 MG PO DAILY, (Reported) Furosemide (Lasix), 40 MG PO DAILY, (Reported) Hydralazine Hcl (Hydralazine Hcl), 100 MG PO TID, (Reported) Insulin Glargine,Hum.rec.anlog (Lantus Solostar), 4 UNIT SQ HS Levothyroxine Sodium (Synthroid), 75 MCG PO DAILYAC, (Reported) Losartan Potassium (Cozaar), 100 MG PO DAILY, (Reported) Oxycodone/Apap 5-325 (Percocet 5-325 Mg Tablet), 1-2 TAB PO Q4-6HRS Sertraline Hcl (Sertraline Hcl), 25 MG PO DAILY Sevelamer Carbonate (Renvela), 800 MG PO TIDAC, (Reported) Scheduled PRN Tramadol Hcl (Tramadol Hcl), 1 TAB PO PRN Q6HRS PRN for PAIN Trazodone Hcl (Trazodone Hcl), 50 MG PO PRN QHS PRN for INSOMNIA FOLLOW UP APPOINTMENT: 1 week after SNU discharge Time Spent Total time spent with patient [] minutes for coordination of care, counseling, and education. BRENDA PABON MD May 08, 2017 08:36
--- NOTE | 2017-05-08 10:15 | PDOC ---
Dialysis Progress Note Dialysis Note Dialysis Note Seen on Hemodialysis, tolerating treatment Well Vitals on Hemodialysis: 127/55 74 afeb General Appearance: Awake: Alert Oriented x 3 Neck: No JVD or JVP Chest: CTA Cruz Heart: S1 S2 Abdomen - Soft NTND Extremities - No Edema ESRD : Dialysis as below F 180 NR 3.0 Hrs 3 K 2.5 Ca 140 Na 35 HC03 Qb 350 + Qd 500+ Heparin 0 Units Uf to 60kg as tolerated may give 25-50 gms of 25% Albumin if needed to maintain Hemodynamic stability Treatment plan reviewed and discussed with quill stripper Vitals Vital Signs Vital Signs Date Time Temp Pulse Resp B/P (MAP) Pulse Ox O2 Delivery O2 Flow Rate FiO2 05/08/17 07:00 98.1 74 18 137/61 (86) 96 Room Air 98.1 05/06/17 11:05 2.0 Labs Last Labs Laboratory Tests Test 05/06/17 12:07 05/06/17 17:33 05/06/17 21:39 05/07/17 07:05 Glucose (Fingerstick) 166 mg/dL (70-99) 176 mg/dL (70-99) 134 mg/dL (70-99) 130 mg/dL (70-99) Test 05/07/17 12:06 05/07/17 13:54 05/07/17 17:24 05/07/17 21:31 Glucose (Fingerstick) 241 mg/dL (70-99) 155 mg/dL (70-99) 158 mg/dL (70-99) Sodium Level 132 mmol/L (136-145) Potassium Level 4.6 mmol/L (3.5-5.1) Chloride Level 95 mmol/L (98-107) Carbon Dioxide Level 27 mmol/L (21-32) Anion Gap 10 (6-14) Blood Urea Nitrogen 33 mg/dL (7-20) Creatinine 5.5 mg/dL (0.6-1.0) Estimated GFR (Cockcroft-Gault) 9.0 Glucose Level 213 mg/dL (70-99) Calcium Level 8.3 mg/dL (8.5-10.1) Test 05/08/17 04:05 05/08/17 07:23 Hemoglobin 9.5 g/dL (12.0-15.5) Sodium Level 132 mmol/L (136-145) Potassium Level 4.5 mmol/L (3.5-5.1) Chloride Level 96 mmol/L (98-107) Carbon Dioxide Level 27 mmol/L (21-32) Anion Gap 9 (6-14) Blood Urea Nitrogen 38 mg/dL (7-20) Creatinine 5.9 mg/dL (0.6-1.0) Estimated GFR (Cockcroft-Gault) 8.3 Glucose Level 163 mg/dL (70-99) Calcium Level 8.0 mg/dL (8.5-10.1) Phosphorus Level 2.6 mg/dL (2.6-4.7) Magnesium Level 2.1 mg/dL (1.8-2.4) Albumin 2.4 g/dL (3.4-5.0) Glucose (Fingerstick) 131 mg/dL (70-99) Laboratory Tests Test 05/07/17 12:06 05/07/17 13:54 05/07/17 17:24 05/07/17 21:31 Glucose (Fingerstick) 241 mg/dL (70-99) 155 mg/dL (70-99) 158 mg/dL (70-99) Sodium Level 132 mmol/L (136-145) Potassium Level 4.6 mmol/L (3.5-5.1) Chloride Level 95 mmol/L (98-107) Carbon Dioxide Level 27 mmol/L (21-32) Anion Gap 10 (6-14) Blood Urea Nitrogen 33 mg/dL (7-20) Creatinine 5.5 mg/dL (0.6-1.0) Estimated GFR (Cockcroft-Gault) 9.0 Glucose Level 213 mg/dL (70-99) Calcium Level 8.3 mg/dL (8.5-10.1) Test 05/08/17 04:05 05/08/17 07:23 Hemoglobin 9.5 g/dL (12.0-15.5) Sodium Level 132 mmol/L (136-145) Potassium Level 4.5 mmol/L (3.5-5.1) Chloride Level 96 mmol/L (98-107) Carbon Dioxide Level 27 mmol/L (21-32) Anion Gap 9 (6-14) Blood Urea Nitrogen 38 mg/dL (7-20) Creatinine 5.9 mg/dL (0.6-1.0) Estimated GFR (Cockcroft-Gault) 8.3 Glucose Level 163 mg/dL (70-99) Calcium Level 8.0 mg/dL (8.5-10.1) Phosphorus Level 2.6 mg/dL (2.6-4.7) Magnesium Level 2.1 mg/dL (1.8-2.4) Albumin 2.4 g/dL (3.4-5.0) Glucose (Fingerstick) 131 mg/dL (70-99) Assessment Assessment Problems Medical Problems: (1) Abdominal wall contusion Status: Acute (2) Elevated troponin Status: Acute (3) End stage renal disease Status: Acute (4) Fall from standing Status: Acute (5) Hypoglycemia associated with diabetes Status: Acute (6) Syncope Status: Acute Problems: Plan Plan of Care Problems Medical Problems: (1) Abdominal wall contusion Status: Acute (2) Elevated troponin Status: Acute (3) End stage renal disease Status: Acute (4) Fall from standing Status: Acute (5) Hypoglycemia associated with diabetes Status: Acute (6) Syncope Status: Acute GAMAL GOMES MD May 08, 2017 10:15
[2017-05-08] MEDS: PANTOPRAZOLE 40 MG TABLET.DR. PO SCH (14:10)
[2017-05-08] MEDS: SERTRALINE 25 MG TABLET. PO SCH (14:11)
[2017-05-08] MEDS: CLOPIDOGREL BISULFATE 75 MG TABLET PO SCH (14:12)
[2017-05-08] MEDS: amLODIPine BESYLATE 10 MG TABLET PO SCH (14:13)
[2017-05-08] MEDS: FUROSEMIDE 40 MG TABLET. PO SCH (14:13)
[2017-05-08] MEDS: ASPIRIN CHEWABLE 81 MG TABLET. PO SCH (14:14)
[2017-05-08] MEDS: LOSARTAN POTASSIUM 50 MG TABLET. PO SCH (14:14)
[2017-05-08] MEDS: LEVOTHYROXINE 75 MCG TABLET PO SCH (14:14)
[2017-05-08] MEDS: FOLIC/VIT B COMP W-C (RENAL) TABLET. PO SCH (14:15)
[2017-05-08 14:17] VITALS: BP 122/49
== END 2017-05-08 18:30 | DRG 637 ==
LOC: ER 10:18 → 6 SOUTH 11:00
PROVIDERS: ADMIT Internal Medicine; ATTEND Internal Medicine
PROC: 5A1D70Z Performance of Urinary Filtration, Intermittent, Less than 6 Hours Per Day (ICD-10-PCS; 2017-05-03)
PROC: 5A1D70Z Performance of Urinary Filtration, Intermittent, Less than 6 Hours Per Day (ICD-10-PCS; principal; 2017-05-05)
PROC: 5A1D70Z Performance of Urinary Filtration, Intermittent, Less than 6 Hours Per Day (ICD-10-PCS; 2017-05-08)
DX: E11.649 Type 2 diabetes mellitus with hypoglycemia without coma (principal); I50.43 Acute on chronic combined systolic (congestive) and diastolic (congestive) heart failure; I13.2 Hypertensive heart and chronic kidney disease with heart failure and with stage 5 chronic kidney disease, or end stage renal disease; G93.41 Metabolic encephalopathy; N18.6 End stage renal disease; S22.41XA Multiple fractures of ribs, right side, initial encounter for closed fracture; I24.8 Other forms of acute ischemic heart disease; E11.22 Type 2 diabetes mellitus with diabetic chronic kidney disease; D64.9 Anemia, unspecified; E03.9 Hypothyroidism, unspecified; E78.5 Hyperlipidemia, unspecified; F32.9 Major depressive disorder, single episode, unspecified; M19.90 Unspecified osteoarthritis, unspecified site; R29.6 Repeated falls; I25.10 Atherosclerotic heart disease of native coronary artery without angina pectoris; W18.39XA Other fall on same level, initial encounter; K21.9 Gastro-esophageal reflux disease without esophagitis; K59.00 Constipation, unspecified; S30.1XXA Contusion of abdominal wall, initial encounter; Z82.49 Family history of ischemic heart disease and other diseases of the circulatory system; Z85.3 Personal history of malignant neoplasm of breast; Z86.73 Personal history of transient ischemic attack (TIA), and cerebral infarction without residual deficits; Z90.13 Acquired absence of bilateral breasts and nipples; Z90.710 Acquired absence of both cervix and uterus; Z95.5 Presence of coronary angioplasty implant and graft; Z99.2 Dependence on renal dialysis; Z90.49 Acquired absence of other specified parts of digestive tract; Z98.42 Cataract extraction status, left eye; Z98.41 Cataract extraction status, right eye; Y93.89 Activity, other specified; Y92.89 Other specified places as the place of occurrence of the external cause; Y99.8 Other external cause status
CPT/HCPCS: 36415; 70450; 71010; 71101; 73030; 73090; 73562; 74176; 80047; 80048; 80069; 80076; 82140; 82553; 82962; 83605; 83690; 83735; 83880; 84443; 84484; 85014; 85018; 85025; 85027; 86706; 87040; 87340; 93005; 93971; 96360; 96361; J1940; J2405; J3010; J7030; 99291-25

== ENCOUNTER 2017-05-17 11:10 | Emergency (ER) | payer MEDICARE, OTHER | END 2017-05-17 11:49 | disposition home or self-care (01) | LOC: ER 11:10 | DX: T82.838A Hemorrhage due to vascular prosthetic devices, implants and grafts, initial encounter (principal); I13.0 Hypertensive heart and chronic kidney disease with heart failure and stage 1 through stage 4 chronic kidney disease, or unspecified chronic kidney disease; E11.22 Type 2 diabetes mellitus with diabetic chronic kidney disease; N18.9 Chronic kidney disease, unspecified; I50.9 Heart failure, unspecified; K21.9 Gastro-esophageal reflux disease without esophagitis; E89.0 Postprocedural hypothyroidism; Z90.13 Acquired absence of bilateral breasts and nipples; Z99.2 Dependence on renal dialysis; Z86.73 Personal history of transient ischemic attack (TIA), and cerebral infarction without residual deficits; Z90.49 Acquired absence of other specified parts of digestive tract; Z90.710 Acquired absence of both cervix and uterus; Y84.1 Kidney dialysis as the cause of abnormal reaction of the patient, or of later complication, without mention of misadventure at the time of the procedure; Y92.89 Other specified places as the place of occurrence of the external cause | CPT/HCPCS: 99284 ==

== ENCOUNTER 2017-07-04 11:53 | Inpatient (IN) | payer MEDICARE, OTHER ==
[2017-07-04] MEDS: IPRATRPIUM/ALBUTEROL 0.5/2.5MG 3 ML NEBU. NEB (12:36)
[2017-07-04 13:16] LABS: ADD MAN DIFF? NO
[2017-07-04 13:19] LABS: BASO % 0 % (0-3); EOS # 0.1 x10^3/uL (0.0-0.7); EOS % 1 % (0-3); HEMATOCRIT 30.9 % (36.0-47.0); HEMOGLOBIN 10.2 g/dL (12.0-15.5); LYMPH # 0.5 x10^3/uL (1.0-4.8); LYMPH % 8 % (24-48); MEAN CORPUSCULAR HEMOGLOBIN 33 pg (25-35); MEAN CORPUSCULAR HGB CONC 33 g/dL (31-37); MEAN CORPUSCULAR VOLUME 100 fL (79-100); MONO # 1.1 x10^3/uL (0.0-1.1); MONO % 17 % (0-9); NEUT # 4.7 x10^3uL (1.8-7.7); NEUT % 74 % (31-73); PLATELET COUNT 200 x10^3/uL (140-400); RED CELL DISTRIBUTION WIDTH 17.1 % (11.5-14.5); WHITE BLOOD COUNT 6.4 x10^3/uL (4.0-11.0)
[2017-07-04 13:28] LABS: INR 1.1 (0.8-1.1); PARTIAL THROMBOPLASTIN TIME 25 SEC (24-38); PROTHROMBIN TIME PATIENT 13.6 SEC (11.7-14.0)
[2017-07-04 13:37] LABS: ANION GAP 13 (6-14); BLOOD UREA NITROGEN 32 mg/dL (7-20); BUN/CREATININE RATIO 5 (6-20); CALCIUM 8.4 mg/dL (8.5-10.1); CARBON DIOXIDE 22 mmol/L (21-32); CHLORIDE 102 mmol/L (98-107); CREATININE 5.9 mg/dL (0.6-1.0); GFR 8.3; GLUCOSE 140 mg/dL (70-99); SODIUM 137 mmol/L (136-145)
[2017-07-04 13:42] LABS: ALBUMIN 2.6 g/dL (3.4-5.0); ALBUMIN/GLOBULIN RATIO 0.6 (1.0-1.7); ALK PHOS 66 U/L (46-116); ALT (SGPT) 7 U/L (14-59); AST (SGOT) 10 U/L (15-37); MAGNESIUM 1.7 mg/dL (1.8-2.4); TOTAL BILIRUBIN 0.5 mg/dL (0.2-1.0); TOTAL PROTEIN 6.8 g/dL (6.4-8.2)
[2017-07-04 13:43] LABS: TROPONINI 0.052 ng/mL (0.000-0.055)
[2017-07-04 13:50] LABS: NT-PRO BNP > 35000 pg/mL (0-449)
[2017-07-04] MEDS: BENZONATATE 100 MG CAPSULE. PO (13:53)
[2017-07-04] MEDS: methylPREDNISolone SOD SUCC PF 125 MG/2 ML VIAL. IV (13:53)
[2017-07-04 13:57] LABS: INFLUENZA A PATIENT NEGATIVE (NEGATIVE); INFLUENZA B PATIENT NEGATIVE (NEGATIVE); OBC FLU VALID
[2017-07-04] MEDS ORDERED: ONDANSETRON PF 4 MG/2 ML VIAL. IV (14:00)
[2017-07-04] MEDS: AZITHROMYCIN 250 MG TABLET. PO (14:10)
[2017-07-04 16:36] LABS: POC GLUCOSE 142 mg/dL (70-99)
[2017-07-04] MEDS ORDERED: traMADol 50 MG TABLET PO (17:45)
[2017-07-04] MEDS ORDERED: traZODone 50 MG TABLET. PO (17:45)
[2017-07-04] MEDS: CARVEDILOL 3.125 MG TABLET. PO (18:00)
[2017-07-04] MEDS: ATORVASTATIN CALCIUM 20 MG TABLET PO (20:31)
[2017-07-04] MEDS: INSULIN DETEMIR 300 UNITS/3 ML INSULN.PEN. SQ (20:34)
[2017-07-05 01:41] LABS: POC GLUCOSE 194 mg/dL (70-99)
[2017-07-05 04:41] LABS: BASO % 0 % (0-3); EOS % 0 % (0-3); HEMATOCRIT 31.1 % (36.0-47.0); HEMOGLOBIN 10.4 g/dL (12.0-15.5); LYMPH # 0.2 x10^3/uL (1.0-4.8); LYMPH % 4 % (24-48); MEAN CORPUSCULAR HEMOGLOBIN 33 pg (25-35); MEAN CORPUSCULAR HGB CONC 33 g/dL (31-37); MEAN CORPUSCULAR VOLUME 99 fL (79-100); MONO # 0.3 x10^3/uL (0.0-1.1); MONO % 6 % (0-9); NEUT # 5.5 x10^3uL (1.8-7.7); NEUT % 90 % (31-73); PLATELET COUNT 219 x10^3/uL (140-400); RED BLOOD COUNT 3.14 x10^6/uL (3.50-5.40); RED CELL DISTRIBUTION WIDTH 16.9 % (11.5-14.5); WHITE BLOOD COUNT 6.1 x10^3/uL (4.0-11.0)
[2017-07-05 04:59] LABS: ADD MAN DIFF? YES
[2017-07-05 05:08] LABS: ANION GAP 14 (6-14); BLOOD UREA NITROGEN 37 mg/dL (7-20); CALCIUM 8.8 mg/dL (8.5-10.1); CARBON DIOXIDE 21 mmol/L (21-32); CHLORIDE 101 mmol/L (98-107); CREATININE 6.7 mg/dL (0.6-1.0); GFR 7.2; GLUCOSE 174 mg/dL (70-99); POTASSIUM 4.5 mmol/L (3.5-5.1); SODIUM 136 mmol/L (136-145)
[2017-07-05] MEDS: LEVOTHYROXINE 75 MCG TABLET PO (05:40)
[2017-07-05] MEDS: SEVELAMER CARBONATE 800 MG TABLET. PO ×5 (07:29→17:23)
[2017-07-05] MEDS: PANTOPRAZOLE 40 MG TABLET.DR. PO (07:29)
[2017-07-05 07:50] LABS: POC GLUCOSE 124 mg/dL (70-99)
[2017-07-05] MEDS: CARVEDILOL 3.125 MG TABLET. PO ×2 (08:00→17:23)
[2017-07-05] MEDS ORDERED: IV NORMAL SALINE 1000ML BAG 1,000 ML IV ×2 (08:05)
[2017-07-05] MEDS ORDERED: diphenhydrAMINE 50 MG/ML VIAL IV ×2 (08:15)
[2017-07-05] MEDS ORDERED: DIALYSIS PATIENT. MC (08:15)
[2017-07-05] MEDS ORDERED: ACETAMINOPHEN 500 MG TABLET PO (08:15)
[2017-07-05] MEDS: LOSARTAN POTASSIUM 50 MG TABLET. PO (09:00)
[2017-07-05] MEDS: CLOPIDOGREL BISULFATE 75 MG TABLET PO (09:00)
[2017-07-05] MEDS: amLODIPine BESYLATE 10 MG TABLET PO (09:00)
[2017-07-05] MEDS: SERTRALINE 25 MG TABLET. PO (09:00)
[2017-07-05] MEDS: FUROSEMIDE 40 MG TABLET. PO (09:00)
[2017-07-05] MEDS: ASPIRIN CHEWABLE 81 MG TABLET. PO (09:00)
[2017-07-05] MEDS: FOLIC/VIT B COMP W-C (RENAL) TABLET. PO (09:00)
[2017-07-05 10:11] LABS: % LYMPHS 5 % (24-48); % MONOS 5 % (0-10); % SEGS 90 % (35-66); PLT ESTIMATE ADEQUATE (ADEQUATE)
[2017-07-05 12:27] LABS: POC GLUCOSE 106 mg/dL (70-99)
[2017-07-05] MEDS ORDERED: LIDOCAINE WITH 8.4% SOD BICARB 3 ML DISP.SYRIN. (12:44)
[2017-07-05] MEDS ORDERED: IODIXANOL 320 MG/ML 100 ML VIAL. (12:44)
[2017-07-05] MEDS ORDERED: IODIXANOL 320MG/ML 50ML VIAL. (12:45)
[2017-07-05] MEDS: LIDOCAINE WITH 8.4% SOD BICARB 3 ML DISP.SYRIN. IJ (13:00)
[2017-07-05] MEDS: fentaNYL PF VIAL 100 MCG/2 ML VIAL IV (13:00)
[2017-07-05] MEDS ORDERED: CONTRAST GIVEN MC (13:00)
[2017-07-05] MEDS: IODIXANOL 320 MG/ML 100 ML VIAL. IART (13:00)
[2017-07-05] MEDS ORDERED: fentaNYL PF VIAL 100 MCG/2 ML VIAL (13:12)
[2017-07-05] MEDS ORDERED: MIDAZOLAM HCL/PF 2 MG/2 ML VIAL. (13:12)
[2017-07-05] MEDS: MIDAZOLAM HCL/PF 2 MG/2 ML VIAL. IV (13:21)
[2017-07-05] MEDS ORDERED: HEPARIN for IV BOLUS 10,000 UNIT/10 ML VIAL. (13:34)
[2017-07-05] MEDS: HEPARIN for IV BOLUS 10,000 UNIT/10 ML VIAL. IV (13:36)
[2017-07-05] MEDS ORDERED: hydrALAZINE 20 MG/ML VIAL. (13:52)
[2017-07-05] MEDS: cefTRIAXone IV Push 1 GM VIAL. IVP (14:22)
[2017-07-05 16:29] LABS: POC GLUCOSE 156 mg/dL (70-99)
[2017-07-05] MEDS: DARBEPOETIN ALFA 60 MCG/0.3 ML DISP.SYRIN. SQ (20:44)
[2017-07-05] MEDS: ATORVASTATIN CALCIUM 20 MG TABLET PO (20:45)
[2017-07-05] MEDS: INSULIN DETEMIR 300 UNITS/3 ML INSULN.PEN. SQ (20:57)
[2017-07-06] MEDS: LEVOTHYROXINE 75 MCG TABLET PO (05:40)
[2017-07-06 06:02] LABS: HEMATOCRIT 31.1 % (36.0-47.0); HEMOGLOBIN 10.3 g/dL (12.0-15.5); MEAN CORPUSCULAR HEMOGLOBIN 32 pg (25-35); MEAN CORPUSCULAR HGB CONC 33 g/dL (31-37); MEAN CORPUSCULAR VOLUME 97 fL (79-100); PLATELET COUNT 224 x10^3/uL (140-400); RED BLOOD COUNT 3.19 x10^6/uL (3.50-5.40); RED CELL DISTRIBUTION WIDTH 16.6 % (11.5-14.5); WHITE BLOOD COUNT 6.9 x10^3/uL (4.0-11.0)
[2017-07-06 06:24] LABS: ANION GAP 7 (6-14); BLOOD UREA NITROGEN 18 mg/dL (7-20); CALCIUM 8.2 mg/dL (8.5-10.1); CARBON DIOXIDE 31 mmol/L (21-32); CHLORIDE 101 mmol/L (98-107); CREATININE 4.3 mg/dL (0.6-1.0); GFR 11.9; GLUCOSE 54 mg/dL (70-99); POTASSIUM 3.7 mmol/L (3.5-5.1); SODIUM 139 mmol/L (136-145)
[2017-07-06 07:26] LABS: POC GLUCOSE 53 mg/dL (70-99)
[2017-07-06] MEDS ORDERED: DEXTROSE 50% 25 GM / 50ML DISP.SYRIN. IV ×3 (07:27→10:45)
[2017-07-06] MEDS: PANTOPRAZOLE 40 MG TABLET.DR. PO (07:31)
[2017-07-06] MEDS: SEVELAMER CARBONATE 800 MG TABLET. PO ×3 (07:35→17:22)
[2017-07-06 08:05] LABS: POC GLUCOSE 106 mg/dL (70-99)
[2017-07-06 09:20] LABS: HEP B SURFACE ABDY Reactive (.)
[2017-07-06] MEDS: CLOPIDOGREL BISULFATE 75 MG TABLET PO (09:30)
[2017-07-06] MEDS: ASPIRIN CHEWABLE 81 MG TABLET. PO (09:30)
[2017-07-06] MEDS: FUROSEMIDE 40 MG TABLET. PO (09:30)
[2017-07-06] MEDS: FOLIC/VIT B COMP W-C (RENAL) TABLET. PO (09:30)
[2017-07-06] MEDS: SERTRALINE 25 MG TABLET. PO (09:30)
[2017-07-06] MEDS: amLODIPine BESYLATE 10 MG TABLET PO (09:31)
[2017-07-06] MEDS: LOSARTAN POTASSIUM 50 MG TABLET. PO (09:32)
[2017-07-06] MEDS: CARVEDILOL 3.125 MG TABLET. PO ×2 (09:33→17:23)
[2017-07-06] MEDS: INSULIN ASPART 300 UNITS/3 ML INSULN.PEN SQ ×2 (11:49→17:00)
[2017-07-06] MEDS: cefTRIAXone IV Push 1 GM VIAL. IVP (14:19)
[2017-07-06 16:39] LABS: POC GLUCOSE 143 mg/dL (70-99)
[2017-07-06] MEDS: LACTOBACILLUS RHAMNOSUS GG 1 CAPSULE. PO (21:03)
[2017-07-06] MEDS: ATORVASTATIN CALCIUM 20 MG TABLET PO (21:03)
[2017-07-06 22:10] LABS: POC GLUCOSE 107 mg/dL (70-99)
[2017-07-06 22:17] LABS: POC GLUCOSE 173 mg/dL (70-99)
[2017-07-07] MEDS: LEVOTHYROXINE 75 MCG TABLET PO (07:30)
[2017-07-07] MEDS: PANTOPRAZOLE 40 MG TABLET.DR. PO (07:30)
[2017-07-07] MEDS: SEVELAMER CARBONATE 800 MG TABLET. PO ×3 (07:30→17:11)
[2017-07-07 07:49] LABS: POC GLUCOSE 121 mg/dL (70-99)
[2017-07-07] MEDS: INSULIN ASPART 300 UNITS/3 ML INSULN.PEN SQ ×3 (08:00→17:14)
[2017-07-07] MEDS ORDERED: IV NORMAL SALINE 1000ML BAG 1,000 ML IV ×2 (09:58)
[2017-07-07] MEDS ORDERED: ALBUMIN HUMAN 25% 200 ML IV (10:00)
[2017-07-07] MEDS ORDERED: DIALYSIS PATIENT. MC ×2 (10:00)
[2017-07-07] MEDS: FOLIC/VIT B COMP W-C (RENAL) TABLET. PO (13:00)
[2017-07-07] MEDS: ASPIRIN CHEWABLE 81 MG TABLET. PO (13:00)
[2017-07-07] MEDS: LOSARTAN POTASSIUM 50 MG TABLET. PO (13:01)
[2017-07-07] MEDS: SERTRALINE 25 MG TABLET. PO (13:02)
[2017-07-07] MEDS: CARVEDILOL 3.125 MG TABLET. PO ×2 (13:02→17:11)
[2017-07-07] MEDS: LACTOBACILLUS RHAMNOSUS GG 1 CAPSULE. PO ×2 (13:02→21:09)
[2017-07-07] MEDS: FUROSEMIDE 40 MG TABLET. PO (13:03)
[2017-07-07] MEDS: CLOPIDOGREL BISULFATE 75 MG TABLET PO (13:03)
[2017-07-07] MEDS: amLODIPine BESYLATE 10 MG TABLET PO (13:03)
[2017-07-07 13:05] LABS: POC GLUCOSE 105 mg/dL (70-99)
[2017-07-07] MEDS: cefTRIAXone IV Push 1 GM VIAL. IVP (13:37)
[2017-07-07 15:53] LABS: POC GLUCOSE 177 mg/dL (70-99)
[2017-07-07] MEDS: ATORVASTATIN CALCIUM 20 MG TABLET PO (21:09)
[2017-07-07 21:12] LABS: POC GLUCOSE 189 mg/dL (70-99)
[2017-07-08] MEDS: PANTOPRAZOLE 40 MG TABLET.DR. PO (06:21)
[2017-07-08] MEDS: LEVOTHYROXINE 75 MCG TABLET PO (06:21)
[2017-07-08] MEDS: INSULIN ASPART 300 UNITS/3 ML INSULN.PEN SQ ×3 (08:00→17:32)
[2017-07-08] MEDS: ASPIRIN CHEWABLE 81 MG TABLET. PO (08:06)
[2017-07-08] MEDS: amLODIPine BESYLATE 10 MG TABLET PO (08:07)
[2017-07-08] MEDS: LACTOBACILLUS RHAMNOSUS GG 1 CAPSULE. PO ×2 (08:07→21:15)
[2017-07-08] MEDS: CEFPODOXIME PROXETIL 100 MG TABLET. PO (08:07)
[2017-07-08] MEDS: CLOPIDOGREL BISULFATE 75 MG TABLET PO (08:07)
[2017-07-08] MEDS: SERTRALINE 25 MG TABLET. PO (08:08)
[2017-07-08] MEDS: FUROSEMIDE 40 MG TABLET. PO (08:08)
[2017-07-08] MEDS: SEVELAMER CARBONATE 800 MG TABLET. PO ×3 (08:08→17:28)
[2017-07-08] MEDS: FOLIC/VIT B COMP W-C (RENAL) TABLET. PO (08:08)
[2017-07-08 08:09] LABS: POC GLUCOSE 142 mg/dL (70-99)
[2017-07-08] MEDS: CARVEDILOL 3.125 MG TABLET. PO ×2 (08:09→17:28)
[2017-07-08] MEDS: LOSARTAN POTASSIUM 50 MG TABLET. PO (08:09)
[2017-07-08 11:00] LABS: POC GLUCOSE 223 mg/dL (70-99)
[2017-07-08] MEDS: oxyCODONE/APAP 5/325 1 TAB TABLET PO (13:45)
[2017-07-08 17:31] LABS: POC GLUCOSE 174 mg/dL (70-99)
[2017-07-08 20:58] LABS: POC GLUCOSE 165 mg/dL (70-99)
[2017-07-08] MEDS: ATORVASTATIN CALCIUM 20 MG TABLET PO (21:15)
[2017-07-09] MEDS: LEVOTHYROXINE 75 MCG TABLET PO (05:48)
[2017-07-09] MEDS: PANTOPRAZOLE 40 MG TABLET.DR. PO (05:48)
[2017-07-09] MEDS: oxyCODONE/APAP 5/325 1 TAB TABLET PO ×2 (05:49→18:34)
[2017-07-09 07:13] LABS: POC GLUCOSE 135 mg/dL (70-99)
[2017-07-09] MEDS: SEVELAMER CARBONATE 800 MG TABLET. PO ×3 (07:34→16:49)
[2017-07-09] MEDS: CARVEDILOL 3.125 MG TABLET. PO ×2 (07:34→16:50)
[2017-07-09] MEDS: INSULIN ASPART 300 UNITS/3 ML INSULN.PEN SQ ×3 (07:36→16:54)
[2017-07-09] MEDS: CEFPODOXIME PROXETIL 100 MG TABLET. PO (09:12)
[2017-07-09] MEDS: FOLIC/VIT B COMP W-C (RENAL) TABLET. PO (09:12)
[2017-07-09] MEDS: CLOPIDOGREL BISULFATE 75 MG TABLET PO (09:12)
[2017-07-09] MEDS: amLODIPine BESYLATE 10 MG TABLET PO (09:12)
[2017-07-09] MEDS: ASPIRIN CHEWABLE 81 MG TABLET. PO (09:12)
[2017-07-09] MEDS: LACTOBACILLUS RHAMNOSUS GG 1 CAPSULE. PO ×2 (09:12→21:06)
[2017-07-09] MEDS: SERTRALINE 25 MG TABLET. PO (09:12)
[2017-07-09] MEDS: LOSARTAN POTASSIUM 50 MG TABLET. PO (09:12)
[2017-07-09] MEDS: FUROSEMIDE 40 MG TABLET. PO (09:12)
[2017-07-09] MEDS ORDERED: MAGNESIUM SULFATE 2GM 50 ML IV (10:00)
[2017-07-09 11:47] LABS: POC GLUCOSE 151 mg/dL (70-99)
[2017-07-09 15:22] LABS: POC GLUCOSE 198 mg/dL (70-99)
[2017-07-09 16:38] LABS: POC GLUCOSE 172 mg/dL (70-99)
[2017-07-09 20:29] LABS: POC GLUCOSE 178 mg/dL (70-99)
[2017-07-09] MEDS: ATORVASTATIN CALCIUM 20 MG TABLET PO (21:06)
[2017-07-10 05:08] LABS: HEMOGLOBIN 10.3 g/dL (12.0-15.5)
[2017-07-10 05:58] LABS: ALBUMIN 2.6 g/dL (3.4-5.0); ANION GAP 11 (6-14); BLOOD UREA NITROGEN 29 mg/dL (7-20); CALCIUM 8.7 mg/dL (8.5-10.1); CARBON DIOXIDE 28 mmol/L (21-32); CHLORIDE 97 mmol/L (98-107); CREATININE 6.7 mg/dL (0.6-1.0); GFR 7.2; GLUCOSE 167 mg/dL (70-99); MAGNESIUM 1.7 mg/dL (1.8-2.4); PHOSPHORUS 2.1 mg/dL (2.6-4.7); POTASSIUM 4.1 mmol/L (3.5-5.1); SODIUM 136 mmol/L (136-145)
[2017-07-10] MEDS: PANTOPRAZOLE 40 MG TABLET.DR. PO (06:25)
[2017-07-10] MEDS: LEVOTHYROXINE 75 MCG TABLET PO (06:25)
[2017-07-10] MEDS: oxyCODONE/APAP 5/325 1 TAB TABLET PO (07:46)
[2017-07-10] MEDS: SEVELAMER CARBONATE 800 MG TABLET. PO ×2 (07:46→13:42)
[2017-07-10 07:51] LABS: POC GLUCOSE 141 mg/dL (70-99)
[2017-07-10] MEDS: CARVEDILOL 3.125 MG TABLET. PO (08:00)
[2017-07-10] MEDS: INSULIN ASPART 300 UNITS/3 ML INSULN.PEN SQ ×2 (08:00→12:00)
[2017-07-10] MEDS ORDERED: IV NORMAL SALINE 1000ML BAG 1,000 ML IV (08:21)
[2017-07-10] MEDS ORDERED: ACETAMINOPHEN 500 MG TABLET PO (08:30)
[2017-07-10] MEDS ORDERED: DIALYSIS PATIENT. MC ×2 (08:30)
[2017-07-10] MEDS ORDERED: ALBUMIN HUMAN 25% 200 ML IV (08:30)
[2017-07-10] MEDS ORDERED: diphenhydrAMINE 50 MG/ML VIAL IV ×2 (08:30)
[2017-07-10] MEDS: FOLIC/VIT B COMP W-C (RENAL) TABLET. PO (08:43)
[2017-07-10] MEDS: CEFPODOXIME PROXETIL 100 MG TABLET. PO (08:43)
[2017-07-10] MEDS: CLOPIDOGREL BISULFATE 75 MG TABLET PO (08:44)
[2017-07-10] MEDS: ASPIRIN CHEWABLE 81 MG TABLET. PO (08:44)
[2017-07-10] MEDS: LACTOBACILLUS RHAMNOSUS GG 1 CAPSULE. PO (08:44)
[2017-07-10] MEDS: SERTRALINE 25 MG TABLET. PO (08:44)
[2017-07-10 13:23] LABS: POC GLUCOSE 110 mg/dL (70-99)
[2017-07-10] MEDS: amLODIPine BESYLATE 10 MG TABLET PO (13:43)
[2017-07-10] MEDS: LOSARTAN POTASSIUM 50 MG TABLET. PO (13:43)
[2017-07-10] MEDS: FUROSEMIDE 40 MG TABLET. PO (13:44)
== END 2017-07-10 15:12 | DRG 252 ==
LOC: ER 11:53 → 5 NORTH 13:46
PROC: 5A1D70Z Performance of Urinary Filtration, Intermittent, Less than 6 Hours Per Day (ICD-10-PCS; principal; 2017-07-05)
PROC: 05733ZZ Dilation of Right Innominate Vein, Percutaneous Approach (ICD-10-PCS; 2017-07-05)
PROC: B51W1ZZ Fluoroscopy of Dialysis Shunt/Fistula using Low Osmolar Contrast (ICD-10-PCS; 2017-07-05)
PROC: 5A1D70Z Performance of Urinary Filtration, Intermittent, Less than 6 Hours Per Day (ICD-10-PCS; 2017-07-07)
PROC: 5A1D70Z Performance of Urinary Filtration, Intermittent, Less than 6 Hours Per Day (ICD-10-PCS; 2017-07-10)
DX: T82.858A Stenosis of other vascular prosthetic devices, implants and grafts, initial encounter (principal); J96.00 Acute respiratory failure, unspecified whether with hypoxia or hypercapnia; I13.2 Hypertensive heart and chronic kidney disease with heart failure and with stage 5 chronic kidney disease, or end stage renal disease; E11.22 Type 2 diabetes mellitus with diabetic chronic kidney disease; J45.901 Unspecified asthma with (acute) exacerbation; K21.9 Gastro-esophageal reflux disease without esophagitis; N18.6 End stage renal disease; I50.43 Acute on chronic combined systolic (congestive) and diastolic (congestive) heart failure; D64.9 Anemia, unspecified; E03.9 Hypothyroidism, unspecified; E21.3 Hyperparathyroidism, unspecified; E78.5 Hyperlipidemia, unspecified; I25.10 Atherosclerotic heart disease of native coronary artery without angina pectoris; J06.9 Acute upper respiratory infection, unspecified; F32.9 Major depressive disorder, single episode, unspecified; M17.10 Unilateral primary osteoarthritis, unspecified knee; Z82.49 Family history of ischemic heart disease and other diseases of the circulatory system; Z85.3 Personal history of malignant neoplasm of breast; Z86.73 Personal history of transient ischemic attack (TIA), and cerebral infarction without residual deficits; Z90.13 Acquired absence of bilateral breasts and nipples; Z90.710 Acquired absence of both cervix and uterus; Z95.5 Presence of coronary angioplasty implant and graft; Z99.2 Dependence on renal dialysis; Z90.49 Acquired absence of other specified parts of digestive tract
CPT/HCPCS: 36415; 36901; 36907; 71045; 73560; 76937; 80048; 80053; 80069; 82962; 83735; 83880; 84484; 85007; 85018; 85025; 85027; 85610; 85730; 86706; 87040; 87804; 87804-59; 93005; 93306; 94640; 96365; 96375; 97116-GP; 97161-GP; 99152; 99153; 99285; 99285-25; A4215; C1725; C1769; C1892; C1894; J0690; J0696; J0881; J1644; J1815; J2250; J2930; J3010; J7042; J7620; Q0144

== ENCOUNTER 2017-07-21 08:15 | Emergency (ER) | payer MEDICARE, OTHER ==
[2017-07-21 09:02] LABS: ADD MAN DIFF? NO
[2017-07-21 09:04] LABS: BASO % 1 % (0-3); EOS # 0.1 x10^3/uL (0.0-0.7); EOS % 1 % (0-3); HEMATOCRIT 36.4 % (36.0-47.0); HEMOGLOBIN 11.6 g/dL (12.0-15.5); LYMPH # 0.5 x10^3/uL (1.0-4.8); LYMPH % 7 % (24-48); MEAN CORPUSCULAR HEMOGLOBIN 32 pg (25-35); MEAN CORPUSCULAR HGB CONC 32 g/dL (31-37); MEAN CORPUSCULAR VOLUME 102 fL (79-100); MONO # 0.6 x10^3/uL (0.0-1.1); MONO % 9 % (0-9); NEUT # 5.7 x10^3uL (1.8-7.7); NEUT % 82 % (31-73); PLATELET COUNT 211 x10^3/uL (140-400); RED BLOOD COUNT 3.58 x10^6/uL (3.50-5.40); RED CELL DISTRIBUTION WIDTH 17.8 % (11.5-14.5); WHITE BLOOD COUNT 6.9 x10^3/uL (4.0-11.0)
[2017-07-21 09:13] LABS: ANION GAP 8 (6-14); BLOOD UREA NITROGEN 27 mg/dL (7-20); CALCIUM 9.1 mg/dL (8.5-10.1); CARBON DIOXIDE 23 mmol/L (21-32); CHLORIDE 104 mmol/L (98-107); CREATININE 5.1 mg/dL (0.6-1.0); GFR 9.8; GLUCOSE 216 mg/dL (70-99); SODIUM 135 mmol/L (136-145)
[2017-07-21 09:14] LABS: INR 1.1 (0.8-1.1); PARTIAL THROMBOPLASTIN TIME 28 SEC (24-38); PROTHROMBIN TIME PATIENT 13.5 SEC (11.7-14.0)
[2017-07-21 09:18] LABS: ALBUMIN 3.1 g/dL (3.4-5.0); ALK PHOS 90 U/L (46-116); ALT (SGPT) 11 U/L (14-59); AST (SGOT) 12 U/L (15-37); DIRECT BILIRUBIN 0.2 mg/dL (0.0-0.2); LIPASE 211 U/L (73-393); TOTAL BILIRUBIN 0.7 mg/dL (0.2-1.0); TOTAL PROTEIN 7.6 g/dL (6.4-8.2)
[2017-07-21] MEDS: MAG HYDROX/ALUMINUM HYD/SIMETH 30 ML ORAL.SUSP PO (09:18)
[2017-07-21 09:20] LABS: TROPONINI 0.032 ng/mL (0.000-0.055)
[2017-07-21] MEDS ORDERED: fentaNYL PF VIAL 100 MCG/2 ML VIAL IV (11:45)
[2017-07-21] MEDS ORDERED: FAMOTIDINE 20 MG TABLET. (11:58)
[2017-07-21] MEDS: FAMOTIDINE 20 MG TABLET. PO (12:02)
[2017-07-21] MEDS: FAMOTIDINE 20 MG/2 ML VIAL IVP (12:32)
== END 2017-07-21 12:15 | disposition home or self-care (01) ==
LOC: ER 08:15
DX: T82.310A Breakdown (mechanical) of aortic (bifurcation) graft (replacement), initial encounter (principal); I13.2 Hypertensive heart and chronic kidney disease with heart failure and with stage 5 chronic kidney disease, or end stage renal disease; N18.6 End stage renal disease; I50.9 Heart failure, unspecified; E11.22 Type 2 diabetes mellitus with diabetic chronic kidney disease; K21.9 Gastro-esophageal reflux disease without esophagitis; Z99.2 Dependence on renal dialysis; Z90.13 Acquired absence of bilateral breasts and nipples; Z86.73 Personal history of transient ischemic attack (TIA), and cerebral infarction without residual deficits; E03.9 Hypothyroidism, unspecified; Y82.8 Other medical devices associated with adverse incidents; Y92.89 Other specified places as the place of occurrence of the external cause
CPT/HCPCS: 36415; 80048; 80076; 83690; 84484; 85025; 85610; 85730; 86850; 86900; 86901; 99284

== ENCOUNTER 2017-09-27 09:40 | Inpatient (IN) | payer MEDICARE, OTHER ==
[2017-09-27 11:03] LABS: ADD MAN DIFF? NO
[2017-09-27 11:13] LABS: BASO % 0 % (0-3); EOS % 1 % (0-3); HEMATOCRIT 36.1 % (36.0-47.0); HEMOGLOBIN 11.9 g/dL (12.0-15.5); LYMPH # 0.5 x10^3/uL (1.0-4.8); LYMPH % 9 % (24-48); MEAN CORPUSCULAR HEMOGLOBIN 33 pg (25-35); MEAN CORPUSCULAR HGB CONC 33 g/dL (31-37); MEAN CORPUSCULAR VOLUME 100 fL (79-100); MONO # 0.7 x10^3/uL (0.0-1.1); MONO % 14 % (0-9); NEUT % 76 % (31-73); PLATELET COUNT 204 x10^3/uL (140-400); RED BLOOD COUNT 3.61 x10^6/uL (3.50-5.40); RED CELL DISTRIBUTION WIDTH 16.7 % (11.5-14.5); WHITE BLOOD COUNT 5.2 x10^3/uL (4.0-11.0)
[2017-09-27 11:20] LABS: ANION GAP 11 (6-14); BLOOD UREA NITROGEN 19 mg/dL (7-20); BUN/CREATININE RATIO 7 (6-20); CALCIUM 8.4 mg/dL (8.5-10.1); CARBON DIOXIDE 21 mmol/L (21-32); CHLORIDE 103 mmol/L (98-107); CREATININE 2.9 mg/dL (0.6-1.0); GFR 18.8; GLUCOSE 188 mg/dL (70-99); POTASSIUM 4.2 mmol/L (3.5-5.1); SODIUM 135 mmol/L (136-145)
[2017-09-27 11:30] LABS: ALBUMIN 3.4 g/dL (3.4-5.0); ALBUMIN/GLOBULIN RATIO 0.8 (1.0-1.7); ALK PHOS 110 U/L (46-116); ALT (SGPT) 23 U/L (14-59); AST (SGOT) 20 U/L (15-37); LIPASE 389 U/L (73-393); TOTAL BILIRUBIN 0.5 mg/dL (0.2-1.0); TOTAL PROTEIN 7.5 g/dL (6.4-8.2)
[2017-09-27] MEDS: MORPHINE SULFATE 4 MG/ML DISP.SYRIN. IV/SQ ×2 (11:38→12:45)
[2017-09-27] MEDS: IOHEXOL 300 MG/ML 100ML VIAL. IV (11:57)
[2017-09-27] MEDS: hydrALAZINE 20 MG/ML VIAL. IVP (12:46)
[2017-09-27] MEDS: MORPHINE SULFATE 4 MG/ML DISP.SYRIN. IV (15:00)
[2017-09-27] MEDS ORDERED: ONDANSETRON PF 4 MG/2 ML VIAL. (15:59)
[2017-09-27] MEDS: ONDANSETRON PF 4 MG/2 ML VIAL. IV ×2 (16:00→18:47)
[2017-09-27] MEDS ORDERED: ONDANSETRON PF 4 MG/2 ML VIAL. IV (16:00)
[2017-09-27 16:57] LABS: POC GLUCOSE 171 mg/dL (70-99)
[2017-09-27] MEDS ORDERED: traMADol 50 MG TABLET PO (18:30)
[2017-09-27] MEDS ORDERED: traZODone 50 MG TABLET. PO (18:30)
[2017-09-27 21:09] LABS: POC GLUCOSE 232 mg/dL (70-99)
[2017-09-27] MEDS: ATORVASTATIN CALCIUM 20 MG TABLET PO (21:09)
[2017-09-27] MEDS: INSULIN GLARGINE 300 UNITS/3 ML INSULN.PEN. SQ (21:13)
[2017-09-28 00:11] LABS: TROPONINI 0.095 ng/mL (0.000-0.055)
[2017-09-28] MEDS: LEVOTHYROXINE 75 MCG TABLET PO (06:09)
[2017-09-28] MEDS: PANTOPRAZOLE 40 MG TABLET.DR. PO (07:10)
[2017-09-28] MEDS: CARVEDILOL 6.25 MG TABLET. PO ×2 (08:00→17:16)
[2017-09-28] MEDS ORDERED: DEXTROSE 50% 25 GM / 50ML DISP.SYRIN. IV (08:04)
[2017-09-28] MEDS: SEVELAMER CARBONATE 800 MG TABLET. PO ×3 (08:07→17:16)
[2017-09-28] MEDS: DEXTROSE 50% 25 GM / 50ML DISP.SYRIN. IV ×3 (08:13→20:40)
[2017-09-28 08:21] LABS: POC GLUCOSE 58 mg/dL (70-99)
[2017-09-28 08:29] LABS: POC GLUCOSE 126 mg/dL (70-99)
[2017-09-28] MEDS: LOSARTAN POTASSIUM 50 MG TABLET. PO (08:32)
[2017-09-28] MEDS: amLODIPine BESYLATE 10 MG TABLET PO (08:32)
[2017-09-28] MEDS: FUROSEMIDE 40 MG TABLET. PO (08:32)
[2017-09-28] MEDS: ASPIRIN CHEWABLE 81 MG TABLET. PO (08:41)
[2017-09-28] MEDS: FOLIC/VIT B COMP W-C (RENAL) TABLET. PO (08:41)
[2017-09-28] MEDS: SERTRALINE 25 MG TABLET. PO (08:41)
[2017-09-28] MEDS: CLOPIDOGREL BISULFATE 75 MG TABLET PO (08:41)
[2017-09-28 12:01] LABS: POC GLUCOSE 108 mg/dL (70-99)
[2017-09-28 16:08] LABS: POC GLUCOSE 57 mg/dL (70-99)
[2017-09-28 16:22] LABS: POC GLUCOSE 92 mg/dL (70-99)
[2017-09-28] MEDS: INSULIN GLARGINE 300 UNITS/3 ML INSULN.PEN. SQ (20:34)
[2017-09-28] MEDS: ATORVASTATIN CALCIUM 20 MG TABLET PO (20:34)
[2017-09-28 20:38] LABS: POC GLUCOSE 68 mg/dL (70-99)
[2017-09-28 21:32] LABS: POC GLUCOSE 113 mg/dL (70-99)
[2017-09-29 05:21] LABS: BASO % 0 % (0-3); EOS # 0.1 x10^3/uL (0.0-0.7); EOS % 1 % (0-3); HEMATOCRIT 35.6 % (36.0-47.0); HEMOGLOBIN 11.7 g/dL (12.0-15.5); LYMPH # 0.3 x10^3/uL (1.0-4.8); LYMPH % 6 % (24-48); MEAN CORPUSCULAR HEMOGLOBIN 33 pg (25-35); MEAN CORPUSCULAR HGB CONC 33 g/dL (31-37); MEAN CORPUSCULAR VOLUME 100 fL (79-100); MONO # 0.7 x10^3/uL (0.0-1.1); MONO % 11 % (0-9); NEUT # 5.1 x10^3uL (1.8-7.7); NEUT % 82 % (31-73); PLATELET COUNT 189 x10^3/uL (140-400); RED BLOOD COUNT 3.55 x10^6/uL (3.50-5.40); WHITE BLOOD COUNT 6.2 x10^3/uL (4.0-11.0)
[2017-09-29 05:27] LABS: ADD MAN DIFF? YES
[2017-09-29 05:37] LABS: ANION GAP 11 (6-14); BLOOD UREA NITROGEN 36 mg/dL (7-20); CALCIUM 8.8 mg/dL (8.5-10.1); CARBON DIOXIDE 21 mmol/L (21-32); CHLORIDE 100 mmol/L (98-107); CREATININE 5.1 mg/dL (0.6-1.0); GFR 9.8; GLUCOSE 90 mg/dL (70-99); POTASSIUM 5.6 mmol/L (3.5-5.1); SODIUM 132 mmol/L (136-145)
[2017-09-29] MEDS: LEVOTHYROXINE 75 MCG TABLET PO (05:38)
[2017-09-29] MEDS ORDERED: IV NORMAL SALINE 1000ML BAG 1,000 ML IV ×2 (08:00)
[2017-09-29] MEDS: oxyCODONE/APAP 5/325 1 TAB TABLET PO ×3 (08:09→20:57)
[2017-09-29 08:37] LABS: POC GLUCOSE 82 mg/dL (70-99)
[2017-09-29] MEDS ORDERED: DIALYSIS PATIENT. MC (10:15)
[2017-09-29] MEDS: PANTOPRAZOLE 40 MG TABLET.DR. PO (10:44)
[2017-09-29] MEDS: CARVEDILOL 6.25 MG TABLET. PO ×2 (10:45→16:49)
[2017-09-29 11:40] LABS: % BANDS 3 % (0-9); % LYMPHS 6 % (24-48); % MONOS 10 % (0-10); % SEGS 81 % (35-66); ANISOCYTOSIS SLIGHT; PLT ESTIMATE ADEQUATE (ADEQUATE); POIKILOCYTOSIS SLIGHT
[2017-09-29 11:41] LABS: BURR CELLS FEW; OVALOCYTES FEW; POLYCHROMASIA SLIGHT
[2017-09-29] MEDS: SEVELAMER CARBONATE 800 MG TABLET. PO ×3 (12:00→16:49)
[2017-09-29] MEDS: FOLIC/VIT B COMP W-C (RENAL) TABLET. PO (12:01)
[2017-09-29] MEDS: amLODIPine BESYLATE 10 MG TABLET PO (12:02)
[2017-09-29] MEDS: LOSARTAN POTASSIUM 50 MG TABLET. PO (12:02)
[2017-09-29] MEDS: FUROSEMIDE 40 MG TABLET. PO (12:03)
[2017-09-29] MEDS: ASPIRIN CHEWABLE 81 MG TABLET. PO (12:03)
[2017-09-29] MEDS: SERTRALINE 25 MG TABLET. PO (12:03)
[2017-09-29] MEDS: CLOPIDOGREL BISULFATE 75 MG TABLET PO (12:03)
[2017-09-29 12:08] LABS: POC GLUCOSE 58 mg/dL (70-99)
[2017-09-29 17:12] LABS: POC GLUCOSE 215 mg/dL (70-99)
[2017-09-29 20:54] LABS: POC GLUCOSE 287 mg/dL (70-99)
[2017-09-29] MEDS: ATORVASTATIN CALCIUM 20 MG TABLET PO (20:57)
[2017-09-29] MEDS: INSULIN GLARGINE 300 UNITS/3 ML INSULN.PEN. SQ (21:01)
[2017-09-30] MEDS: LEVOTHYROXINE 75 MCG TABLET PO (05:44)
[2017-09-30 06:00] LABS: ADD MAN DIFF? NO
[2017-09-30 06:06] LABS: BASO % 1 % (0-3); EOS # 0.1 x10^3/uL (0.0-0.7); EOS % 2 % (0-3); HEMOGLOBIN 11.7 g/dL (12.0-15.5); LYMPH # 0.4 x10^3/uL (1.0-4.8); LYMPH % 8 % (24-48); MEAN CORPUSCULAR HEMOGLOBIN 33 pg (25-35); MEAN CORPUSCULAR HGB CONC 33 g/dL (31-37); MEAN CORPUSCULAR VOLUME 101 fL (79-100); MONO # 0.7 x10^3/uL (0.0-1.1); MONO % 14 % (0-9); NEUT # 3.9 x10^3uL (1.8-7.7); NEUT % 77 % (31-73); PLATELET COUNT 194 x10^3/uL (140-400); RED BLOOD COUNT 3.58 x10^6/uL (3.50-5.40); RED CELL DISTRIBUTION WIDTH 16.6 % (11.5-14.5)
[2017-09-30 06:18] LABS: ANION GAP 8 (6-14); BLOOD UREA NITROGEN 26 mg/dL (7-20); CARBON DIOXIDE 28 mmol/L (21-32); CHLORIDE 97 mmol/L (98-107); CREATININE 4.4 mg/dL (0.6-1.0); GFR 11.6; GLUCOSE 170 mg/dL (70-99); POTASSIUM 4.4 mmol/L (3.5-5.1); SODIUM 133 mmol/L (136-145)
[2017-09-30 07:25] LABS: POC GLUCOSE 150 mg/dL (70-99)
[2017-09-30] MEDS: ASPIRIN CHEWABLE 81 MG TABLET. PO (08:42)
[2017-09-30] MEDS: SEVELAMER CARBONATE 800 MG TABLET. PO ×3 (08:42→16:44)
[2017-09-30] MEDS: PANTOPRAZOLE 40 MG TABLET.DR. PO (08:43)
[2017-09-30] MEDS: CARVEDILOL 6.25 MG TABLET. PO ×2 (08:43→17:18)
[2017-09-30] MEDS: FOLIC/VIT B COMP W-C (RENAL) TABLET. PO (08:44)
[2017-09-30] MEDS: SERTRALINE 25 MG TABLET. PO (08:45)
[2017-09-30] MEDS: FUROSEMIDE 40 MG TABLET. PO (08:45)
[2017-09-30] MEDS: LOSARTAN POTASSIUM 50 MG TABLET. PO (08:45)
[2017-09-30] MEDS: CLOPIDOGREL BISULFATE 75 MG TABLET PO (08:46)
[2017-09-30] MEDS: amLODIPine BESYLATE 10 MG TABLET PO (09:39)
[2017-09-30 11:28] LABS: POC GLUCOSE 210 mg/dL (70-99)
[2017-09-30 13:46] LABS: LIPASE 276 U/L (73-393)
[2017-09-30 14:39] LABS: POC GLUCOSE 223 mg/dL (70-99)
[2017-09-30] MEDS ORDERED: DEXTROSE 50% 25 GM / 50ML DISP.SYRIN. IV (16:15)
[2017-09-30 16:19] LABS: POC GLUCOSE 179 mg/dL (70-99)
[2017-09-30] MEDS: INSULIN LISPRO 300 UNITS/3 ML INSULN.PEN. SQ (16:49)
[2017-09-30] MEDS ORDERED: diphenhydrAMINE 50 MG/ML VIAL IVP (17:00)
[2017-09-30] MEDS: diphenhydrAMINE HCL 25 MG CAPSULE PO (17:20)
[2017-09-30] MEDS: ATORVASTATIN CALCIUM 20 MG TABLET PO (20:36)
[2017-09-30] MEDS: INSULIN GLARGINE 300 UNITS/3 ML INSULN.PEN. SQ (20:39)
[2017-09-30 20:41] LABS: POC GLUCOSE 189 mg/dL (70-99)
[2017-10-01] MEDS: LEVOTHYROXINE 75 MCG TABLET PO (05:49)
[2017-10-01] MEDS: PANTOPRAZOLE 40 MG TABLET.DR. PO (05:49)
[2017-10-01 06:39] LABS: ADD MAN DIFF? NO
[2017-10-01 06:43] LABS: BASO % 1 % (0-3); EOS # 0.1 x10^3/uL (0.0-0.7); EOS % 1 % (0-3); HEMATOCRIT 35.8 % (36.0-47.0); HEMOGLOBIN 11.9 g/dL (12.0-15.5); LYMPH # 0.6 x10^3/uL (1.0-4.8); LYMPH % 9 % (24-48); MEAN CORPUSCULAR HEMOGLOBIN 33 pg (25-35); MEAN CORPUSCULAR HGB CONC 33 g/dL (31-37); MEAN CORPUSCULAR VOLUME 99 fL (79-100); MONO # 0.8 x10^3/uL (0.0-1.1); MONO % 11 % (0-9); NEUT # 5.3 x10^3uL (1.8-7.7); NEUT % 78 % (31-73); PLATELET COUNT 239 x10^3/uL (140-400); RED BLOOD COUNT 3.61 x10^6/uL (3.50-5.40); RED CELL DISTRIBUTION WIDTH 16.7 % (11.5-14.5); WHITE BLOOD COUNT 6.9 x10^3/uL (4.0-11.0)
[2017-10-01 06:58] LABS: ANION GAP 8 (6-14); BLOOD UREA NITROGEN 35 mg/dL (7-20); CARBON DIOXIDE 26 mmol/L (21-32); CHLORIDE 97 mmol/L (98-107); CREATININE 5.5 mg/dL (0.6-1.0); GLUCOSE 55 mg/dL (70-99); POTASSIUM 4.5 mmol/L (3.5-5.1); SODIUM 131 mmol/L (136-145)
[2017-10-01] MEDS: INSULIN LISPRO 300 UNITS/3 ML INSULN.PEN. SQ ×4 (07:59→17:00)
[2017-10-01] MEDS: SEVELAMER CARBONATE 800 MG TABLET. PO ×3 (08:00→17:09)
[2017-10-01] MEDS: CARVEDILOL 6.25 MG TABLET. PO ×2 (08:00→17:09)
[2017-10-01] MEDS ORDERED: DEXTROSE ORAL GEL 15 GM TUBE. (08:09)
[2017-10-01] MEDS: DEXTROSE ORAL GEL 15 GM TUBE. PO ×2 (08:10→08:31)
[2017-10-01 08:38] LABS: POC GLUCOSE 64 mg/dL (70-99)
[2017-10-01 08:48] LABS: POC GLUCOSE 80 mg/dL (70-99)
[2017-10-01 10:07] LABS: POC GLUCOSE 79 mg/dL (70-99)
[2017-10-01 11:17] LABS: POC GLUCOSE 101 mg/dL (70-99)
[2017-10-01 12:01] LABS: POC GLUCOSE 51 mg/dL (70-99)
[2017-10-01] MEDS: LOSARTAN POTASSIUM 50 MG TABLET. PO (15:21)
[2017-10-01] MEDS: CLOPIDOGREL BISULFATE 75 MG TABLET PO (15:22)
[2017-10-01] MEDS: amLODIPine BESYLATE 10 MG TABLET PO (15:22)
[2017-10-01] MEDS: ASPIRIN CHEWABLE 81 MG TABLET. PO (15:22)
[2017-10-01] MEDS: FOLIC/VIT B COMP W-C (RENAL) TABLET. PO (15:22)
[2017-10-01] MEDS: SERTRALINE 25 MG TABLET. PO (15:22)
[2017-10-01] MEDS: FUROSEMIDE 40 MG TABLET. PO (15:23)
[2017-10-01 17:16] LABS: POC GLUCOSE 81 mg/dL (70-99)
[2017-10-01] MEDS: ATORVASTATIN CALCIUM 20 MG TABLET PO (20:34)
[2017-10-01] MEDS: oxyCODONE/APAP 5/325 1 TAB TABLET PO (20:35)
[2017-10-01 20:48] LABS: POC GLUCOSE 130 mg/dL (70-99)
[2017-10-01] MEDS: INSULIN GLARGINE 300 UNITS/3 ML INSULN.PEN. SQ (21:00)
[2017-10-02] MEDS: oxyCODONE/APAP 5/325 1 TAB TABLET PO (02:35)
[2017-10-02] MEDS: PANTOPRAZOLE 40 MG TABLET.DR. PO (06:05)
[2017-10-02] MEDS: LEVOTHYROXINE 75 MCG TABLET PO (06:05)
[2017-10-02 06:12] LABS: ADD MAN DIFF? NO
[2017-10-02 06:16] LABS: BASO % 0 % (0-3); EOS # 0.1 x10^3/uL (0.0-0.7); EOS % 1 % (0-3); HEMATOCRIT 36.3 % (36.0-47.0); HEMOGLOBIN 12.1 g/dL (12.0-15.5); LYMPH # 0.4 x10^3/uL (1.0-4.8); LYMPH % 6 % (24-48); MEAN CORPUSCULAR HEMOGLOBIN 33 pg (25-35); MEAN CORPUSCULAR HGB CONC 33 g/dL (31-37); MEAN CORPUSCULAR VOLUME 99 fL (79-100); MONO # 0.8 x10^3/uL (0.0-1.1); MONO % 12 % (0-9); NEUT # 5.4 x10^3uL (1.8-7.7); NEUT % 81 % (31-73); PLATELET COUNT 213 x10^3/uL (140-400); RED BLOOD COUNT 3.68 x10^6/uL (3.50-5.40); RED CELL DISTRIBUTION WIDTH 16.4 % (11.5-14.5); WHITE BLOOD COUNT 6.7 x10^3/uL (4.0-11.0)
[2017-10-02 06:33] LABS: ALBUMIN 3.2 g/dL (3.4-5.0); ALBUMIN/GLOBULIN RATIO 0.8 (1.0-1.7); ALK PHOS 146 U/L (46-116); ALT (SGPT) 14 U/L (14-59); ANION GAP 9 (6-14); AST (SGOT) 17 U/L (15-37); BLOOD UREA NITROGEN 44 mg/dL (7-20); BUN/CREATININE RATIO 7 (6-20); CALCIUM 8.6 mg/dL (8.5-10.1); CARBON DIOXIDE 26 mmol/L (21-32); CHLORIDE 96 mmol/L (98-107); CREATININE 6.4 mg/dL (0.6-1.0); GFR 7.5; GLUCOSE 217 mg/dL (70-99); POTASSIUM 4.9 mmol/L (3.5-5.1); SODIUM 131 mmol/L (136-145); TOTAL BILIRUBIN 0.5 mg/dL (0.2-1.0); TOTAL PROTEIN 7.3 g/dL (6.4-8.2)
[2017-10-02] MEDS: SEVELAMER CARBONATE 800 MG TABLET. PO ×4 (07:38→17:14)
[2017-10-02] MEDS: CARVEDILOL 6.25 MG TABLET. PO ×2 (08:00→17:15)
[2017-10-02] MEDS: INSULIN LISPRO 300 UNITS/3 ML INSULN.PEN. SQ ×3 (08:00→17:00)
[2017-10-02 08:20] LABS: POC GLUCOSE 190 mg/dL (70-99)
[2017-10-02] MEDS ORDERED: IV NORMAL SALINE 1000ML BAG 1,000 ML IV (09:22)
[2017-10-02] MEDS ORDERED: DIALYSIS PATIENT. MC ×2 (09:30)
[2017-10-02] MEDS ORDERED: 0.9 % SODIUM CHLORIDE 10 ML DISP.SYRIN. IV ×2 (09:30)
[2017-10-02] MEDS: FOLIC/VIT B COMP W-C (RENAL) TABLET. PO (14:24)
[2017-10-02] MEDS: ASPIRIN CHEWABLE 81 MG TABLET. PO (14:26)
[2017-10-02] MEDS: LOSARTAN POTASSIUM 50 MG TABLET. PO (14:26)
[2017-10-02] MEDS: SERTRALINE 25 MG TABLET. PO (14:27)
[2017-10-02] MEDS: CLOPIDOGREL BISULFATE 75 MG TABLET PO (14:27)
[2017-10-02] MEDS: FUROSEMIDE 40 MG TABLET. PO (14:27)
[2017-10-02] MEDS: amLODIPine BESYLATE 10 MG TABLET PO (14:28)
[2017-10-02 15:27] LABS: POC GLUCOSE 117 mg/dL (70-99)
[2017-10-02] MEDS ORDERED: POLYETHYLENE GLYCOL 3350 17 GM PACKET. PO (16:30)
[2017-10-02 17:16] LABS: POC GLUCOSE 116 mg/dL (70-99)
[2017-10-02] MEDS: ATORVASTATIN CALCIUM 20 MG TABLET PO (20:07)
[2017-10-02 20:55] LABS: POC GLUCOSE 212 mg/dL (70-99)
[2017-10-02] MEDS: INSULIN GLARGINE 300 UNITS/3 ML INSULN.PEN. SQ (21:46)
[2017-10-03] MEDS: oxyCODONE/APAP 5/325 1 TAB TABLET PO ×3 (00:32→20:29)
[2017-10-03 04:13] LABS: ADD MAN DIFF? NO
[2017-10-03 04:17] LABS: BASO % 1 % (0-3); EOS # 0.1 x10^3/uL (0.0-0.7); EOS % 1 % (0-3); HEMATOCRIT 33.3 % (36.0-47.0); HEMOGLOBIN 11.3 g/dL (12.0-15.5); LYMPH # 0.5 x10^3/uL (1.0-4.8); LYMPH % 9 % (24-48); MEAN CORPUSCULAR HEMOGLOBIN 33 pg (25-35); MEAN CORPUSCULAR HGB CONC 34 g/dL (31-37); MEAN CORPUSCULAR VOLUME 98 fL (79-100); MONO # 0.7 x10^3/uL (0.0-1.1); MONO % 13 % (0-9); NEUT % 76 % (31-73); PLATELET COUNT 179 x10^3/uL (140-400); RED CELL DISTRIBUTION WIDTH 16.3 % (11.5-14.5); WHITE BLOOD COUNT 5.3 x10^3/uL (4.0-11.0)
[2017-10-03 05:01] LABS: ANION GAP 6 (6-14); BLOOD UREA NITROGEN 25 mg/dL (7-20); CALCIUM 8.2 mg/dL (8.5-10.1); CARBON DIOXIDE 30 mmol/L (21-32); CHLORIDE 99 mmol/L (98-107); CREATININE 4.3 mg/dL (0.6-1.0); GFR 11.9; GLUCOSE 117 mg/dL (70-99); POTASSIUM 4.4 mmol/L (3.5-5.1); SODIUM 135 mmol/L (136-145)
[2017-10-03] MEDS: LEVOTHYROXINE 75 MCG TABLET PO (06:00)
[2017-10-03] MEDS: INSULIN LISPRO 300 UNITS/3 ML INSULN.PEN. SQ ×3 (08:00→17:00)
[2017-10-03 08:20] LABS: POC GLUCOSE 54 mg/dL (70-99)
[2017-10-03 08:43] LABS: POC GLUCOSE 53 mg/dL (70-99)
[2017-10-03] MEDS: PANTOPRAZOLE 40 MG TABLET.DR. PO (08:44)
[2017-10-03] MEDS: SEVELAMER CARBONATE 800 MG TABLET. PO ×3 (08:44→17:00)
[2017-10-03] MEDS: DEXTROSE 50% 25 GM / 50ML DISP.SYRIN. IV (08:48)
[2017-10-03] MEDS: FOLIC/VIT B COMP W-C (RENAL) TABLET. PO (09:14)
[2017-10-03] MEDS: ASPIRIN CHEWABLE 81 MG TABLET. PO (09:15)
[2017-10-03] MEDS: amLODIPine BESYLATE 10 MG TABLET PO (09:15)
[2017-10-03] MEDS: CLOPIDOGREL BISULFATE 75 MG TABLET PO (09:15)
[2017-10-03] MEDS: FUROSEMIDE 40 MG TABLET. PO (09:15)
[2017-10-03] MEDS: SERTRALINE 25 MG TABLET. PO (09:15)
[2017-10-03] MEDS: CARVEDILOL 6.25 MG TABLET. PO ×2 (09:16→17:00)
[2017-10-03] MEDS: LOSARTAN POTASSIUM 50 MG TABLET. PO (09:16)
[2017-10-03 09:28] LABS: GLUCOSE 149 mg/dL (70-99)
[2017-10-03] MEDS: IV DEXTROSE 5% - 0.9 % NACL 1,000 ML IV (11:30)
[2017-10-03] MEDS: diphenhydrAMINE HCL 25 MG CAPSULE PO (12:10)
[2017-10-03 12:21] LABS: CA 19-9 44 U/mL (0-35)
[2017-10-03 17:03] LABS: POC GLUCOSE 92 mg/dL (70-99)
[2017-10-03 18:29] LABS: POC GLUCOSE 84 mg/dL (70-99)
[2017-10-03] MEDS: ATORVASTATIN CALCIUM 20 MG TABLET PO (20:29)
[2017-10-03 20:43] LABS: POC GLUCOSE 109 mg/dL (70-99)
[2017-10-03] MEDS: INSULIN GLARGINE 300 UNITS/3 ML INSULN.PEN. SQ (21:00)
[2017-10-04] MEDS: PANTOPRAZOLE 40 MG TABLET.DR. PO (05:33)
[2017-10-04] MEDS: LEVOTHYROXINE 75 MCG TABLET PO (05:33)
[2017-10-04 06:38] LABS: ADD MAN DIFF? NO
[2017-10-04 06:51] LABS: BASO % 0 % (0-3); EOS # 0.1 x10^3/uL (0.0-0.7); EOS % 1 % (0-3); HEMATOCRIT 34.1 % (36.0-47.0); HEMOGLOBIN 11.7 g/dL (12.0-15.5); LYMPH # 0.4 x10^3/uL (1.0-4.8); LYMPH % 6 % (24-48); MEAN CORPUSCULAR HEMOGLOBIN 34 pg (25-35); MEAN CORPUSCULAR HGB CONC 34 g/dL (31-37); MEAN CORPUSCULAR VOLUME 99 fL (79-100); MONO # 0.7 x10^3/uL (0.0-1.1); MONO % 11 % (0-9); NEUT # 5.1 x10^3uL (1.8-7.7); NEUT % 82 % (31-73); PLATELET COUNT 168 x10^3/uL (140-400); RED BLOOD COUNT 3.45 x10^6/uL (3.50-5.40); WHITE BLOOD COUNT 6.2 x10^3/uL (4.0-11.0)
[2017-10-04 07:03] LABS: ANION GAP 9 (6-14); BLOOD UREA NITROGEN 35 mg/dL (7-20); CARBON DIOXIDE 27 mmol/L (21-32); CHLORIDE 97 mmol/L (98-107); CREATININE 5.3 mg/dL (0.6-1.0); GFR 9.4; GLUCOSE 94 mg/dL (70-99); POTASSIUM 4.8 mmol/L (3.5-5.1); SODIUM 133 mmol/L (136-145)
[2017-10-04 07:37] LABS: POC GLUCOSE 79 mg/dL (70-99)
[2017-10-04] MEDS: CARVEDILOL 6.25 MG TABLET. PO ×2 (08:00→15:32)
[2017-10-04] MEDS: INSULIN LISPRO 300 UNITS/3 ML INSULN.PEN. SQ ×3 (08:00→17:00)
[2017-10-04] MEDS: SEVELAMER CARBONATE 800 MG TABLET. PO ×3 (08:03→17:47)
[2017-10-04] MEDS ORDERED: IV NORMAL SALINE 1000ML BAG 1,000 ML IV ×2 (08:35)
[2017-10-04] MEDS ORDERED: DIALYSIS PATIENT. MC ×2 (08:45)
[2017-10-04] MEDS ORDERED: ALBUMIN HUMAN 25% 200 ML IV (08:45)
[2017-10-04 11:44] LABS: INR 1.1 (0.8-1.1); PARTIAL THROMBOPLASTIN TIME 28 SEC (24-38)
[2017-10-04 12:15] LABS: POC GLUCOSE 126 mg/dL (70-99)
[2017-10-04] MEDS ORDERED: IODIXANOL 320MG/ML 50ML VIAL. (12:29)
[2017-10-04] MEDS ORDERED: IODIXANOL 320 MG/ML 100 ML VIAL. (12:29)
[2017-10-04] MEDS ORDERED: LIDOCAINE WITH 8.4% SOD BICARB 3 ML DISP.SYRIN. (12:29)
[2017-10-04] MEDS ORDERED: fentaNYL PF VIAL 100 MCG/2 ML VIAL (12:37)
[2017-10-04] MEDS ORDERED: MIDAZOLAM HCL/PF 2 MG/2 ML VIAL. (12:37)
[2017-10-04] MEDS ORDERED: HEPARIN for IV BOLUS 10,000 UNIT/10 ML VIAL. (12:37)
[2017-10-04] MEDS ORDERED: CONTRAST GIVEN MC (13:15)
[2017-10-04] MEDS: LIDOCAINE WITH 8.4% SOD BICARB 3 ML DISP.SYRIN. IJ (14:18)
[2017-10-04] MEDS: IODIXANOL 320 MG/ML 100 ML VIAL. IART (14:18)
[2017-10-04] MEDS: fentaNYL PF VIAL 100 MCG/2 ML VIAL IV (14:19)
[2017-10-04] MEDS: MIDAZOLAM HCL/PF 2 MG/2 ML VIAL. IV (14:19)
[2017-10-04] MEDS: HEPARIN for IV BOLUS 10,000 UNIT/10 ML VIAL. INT CAT (14:23)
[2017-10-04] MEDS: FOLIC/VIT B COMP W-C (RENAL) TABLET. PO (15:20)
[2017-10-04] MEDS: SERTRALINE 25 MG TABLET. PO (15:20)
[2017-10-04] MEDS: CLOPIDOGREL BISULFATE 75 MG TABLET PO (15:20)
[2017-10-04] MEDS: ASPIRIN CHEWABLE 81 MG TABLET. PO (15:21)
[2017-10-04] MEDS: amLODIPine BESYLATE 10 MG TABLET PO (15:26)
[2017-10-04] MEDS: LOSARTAN POTASSIUM 50 MG TABLET. PO (15:30)
[2017-10-04] MEDS: FUROSEMIDE 40 MG TABLET. PO (15:30)
[2017-10-04 16:33] LABS: POC GLUCOSE 134 mg/dL (70-99)
[2017-10-04 21:03] LABS: POC GLUCOSE 187 mg/dL (70-99)
[2017-10-04] MEDS: ATORVASTATIN CALCIUM 20 MG TABLET PO (21:22)
[2017-10-04] MEDS: INSULIN GLARGINE 300 UNITS/3 ML INSULN.PEN. SQ (21:29)
[2017-10-05] MEDS: PANTOPRAZOLE 40 MG TABLET.DR. PO (06:28)
[2017-10-05] MEDS: LEVOTHYROXINE 75 MCG TABLET PO (06:29)
[2017-10-05 07:47] LABS: ADD MAN DIFF? NO
[2017-10-05 07:52] LABS: BASO % 0 % (0-3); EOS # 0.1 x10^3/uL (0.0-0.7); EOS % 1 % (0-3); HEMATOCRIT 33.6 % (36.0-47.0); HEMOGLOBIN 11.3 g/dL (12.0-15.5); LYMPH # 0.5 x10^3/uL (1.0-4.8); LYMPH % 7 % (24-48); MEAN CORPUSCULAR HEMOGLOBIN 33 pg (25-35); MEAN CORPUSCULAR HGB CONC 34 g/dL (31-37); MEAN CORPUSCULAR VOLUME 98 fL (79-100); MONO # 0.8 x10^3/uL (0.0-1.1); MONO % 11 % (0-9); NEUT # 5.5 x10^3uL (1.8-7.7); NEUT % 80 % (31-73); PLATELET COUNT 162 x10^3/uL (140-400); RED BLOOD COUNT 3.42 x10^6/uL (3.50-5.40); RED CELL DISTRIBUTION WIDTH 15.9 % (11.5-14.5); WHITE BLOOD COUNT 6.9 x10^3/uL (4.0-11.0)
[2017-10-05] MEDS: CARVEDILOL 6.25 MG TABLET. PO ×2 (08:00→16:35)
[2017-10-05] MEDS: SEVELAMER CARBONATE 800 MG TABLET. PO ×3 (08:00→16:35)
[2017-10-05] MEDS: INSULIN LISPRO 300 UNITS/3 ML INSULN.PEN. SQ ×3 (08:00→16:56)
[2017-10-05 08:02] LABS: ANION GAP 7 (6-14); BLOOD UREA NITROGEN 42 mg/dL (7-20); CALCIUM 8.5 mg/dL (8.5-10.1); CARBON DIOXIDE 28 mmol/L (21-32); CHLORIDE 96 mmol/L (98-107); CREATININE 5.7 mg/dL (0.6-1.0); GFR 8.6; GLUCOSE 153 mg/dL (70-99); SODIUM 131 mmol/L (136-145)
[2017-10-05 08:04] LABS: POTASSIUM 5.6 mmol/L (3.5-5.1)
[2017-10-05] MEDS ORDERED: IV NORMAL SALINE 1000ML BAG 1,000 ML IV ×2 (08:07)
[2017-10-05] MEDS ORDERED: LABETALOL 20 MG/4 ML DISP.SYRIN. IVP (08:15)
[2017-10-05] MEDS ORDERED: ACETAMINOPHEN 500 MG TABLET PO (08:15)
[2017-10-05] MEDS ORDERED: DIALYSIS PATIENT. MC ×2 (08:15)
[2017-10-05] MEDS ORDERED: cloNIDine HCL 0.1 MG TABLET PO (08:15)
[2017-10-05] MEDS ORDERED: diphenhydrAMINE 50 MG/ML VIAL IV ×2 (08:15)
[2017-10-05] MEDS: FUROSEMIDE 40 MG TABLET. PO (09:00)
[2017-10-05 09:10] LABS: POC GLUCOSE 131 mg/dL (70-99)
[2017-10-05 11:28] LABS: POC GLUCOSE 151 mg/dL (70-99)
[2017-10-05] MEDS: SERTRALINE 25 MG TABLET. PO (12:11)
[2017-10-05] MEDS: FOLIC/VIT B COMP W-C (RENAL) TABLET. PO (12:11)
[2017-10-05] MEDS: LOSARTAN POTASSIUM 50 MG TABLET. PO (12:13)
[2017-10-05] MEDS: CLOPIDOGREL BISULFATE 75 MG TABLET PO (12:14)
[2017-10-05] MEDS: amLODIPine BESYLATE 10 MG TABLET PO (12:14)
[2017-10-05] MEDS: ASPIRIN CHEWABLE 81 MG TABLET. PO (12:16)
[2017-10-05 12:25] LABS: POC GLUCOSE 84 mg/dL (70-99)
[2017-10-05] MEDS: diphenhydrAMINE HCL 25 MG CAPSULE PO (16:52)
[2017-10-05 16:54] LABS: POC GLUCOSE 204 mg/dL (70-99)
[2017-10-05 21:40] LABS: POC GLUCOSE 206 mg/dL (70-99)
[2017-10-05] MEDS: ATORVASTATIN CALCIUM 20 MG TABLET PO (21:42)
[2017-10-05] MEDS: INSULIN GLARGINE 300 UNITS/3 ML INSULN.PEN. SQ (21:47)
[2017-10-06] MEDS: LEVOTHYROXINE 75 MCG TABLET PO (06:12)
[2017-10-06] MEDS: PANTOPRAZOLE 40 MG TABLET.DR. PO (06:12)
[2017-10-06] MEDS ORDERED: IV NORMAL SALINE 1000ML BAG 1,000 ML IV ×2 (07:22)
[2017-10-06] MEDS ORDERED: DIALYSIS PATIENT. MC ×2 (07:30)
[2017-10-06] MEDS: DEXTROSE 50% 25 GM / 50ML DISP.SYRIN. IV (07:35)
[2017-10-06] MEDS: INSULIN LISPRO 300 UNITS/3 ML INSULN.PEN. SQ ×3 (08:00→17:00)
[2017-10-06 08:03] LABS: POC GLUCOSE 44 mg/dL (70-99)
[2017-10-06 08:18] LABS: GLUCOSE 112 mg/dL (70-99)
[2017-10-06] MEDS: SEVELAMER CARBONATE 800 MG TABLET. PO ×3 (12:00→17:14)
[2017-10-06] MEDS: ASPIRIN CHEWABLE 81 MG TABLET. PO (12:43)
[2017-10-06] MEDS: SERTRALINE 25 MG TABLET. PO (12:43)
[2017-10-06] MEDS: FUROSEMIDE 40 MG TABLET. PO (12:44)
[2017-10-06] MEDS: CLOPIDOGREL BISULFATE 75 MG TABLET PO (12:44)
[2017-10-06] MEDS: CARVEDILOL 6.25 MG TABLET. PO ×2 (12:45→17:14)
[2017-10-06] MEDS: amLODIPine BESYLATE 10 MG TABLET PO (12:45)
[2017-10-06] MEDS: LOSARTAN POTASSIUM 50 MG TABLET. PO (12:47)
[2017-10-06] MEDS: FOLIC/VIT B COMP W-C (RENAL) TABLET. PO (12:51)
[2017-10-06 17:44] LABS: POC GLUCOSE 152 mg/dL (70-99)
[2017-10-06] MEDS: ATORVASTATIN CALCIUM 20 MG TABLET PO (20:54)
[2017-10-06] MEDS: INSULIN GLARGINE 300 UNITS/3 ML INSULN.PEN. SQ (20:57)
[2017-10-07] MEDS: LEVOTHYROXINE 75 MCG TABLET PO (05:49)
[2017-10-07] MEDS: INSULIN LISPRO 300 UNITS/3 ML INSULN.PEN. SQ ×3 (08:00→17:29)
[2017-10-07] MEDS: SEVELAMER CARBONATE 800 MG TABLET. PO ×3 (08:03→17:22)
[2017-10-07] MEDS: FOLIC/VIT B COMP W-C (RENAL) TABLET. PO (08:04)
[2017-10-07] MEDS: PANTOPRAZOLE 40 MG TABLET.DR. PO (08:04)
[2017-10-07] MEDS: FUROSEMIDE 40 MG TABLET. PO (08:05)
[2017-10-07] MEDS: ASPIRIN CHEWABLE 81 MG TABLET. PO (08:05)
[2017-10-07] MEDS: SERTRALINE 25 MG TABLET. PO (08:06)
[2017-10-07] MEDS: CLOPIDOGREL BISULFATE 75 MG TABLET PO (08:06)
[2017-10-07 08:13] LABS: POC GLUCOSE 241 mg/dL (70-99)
[2017-10-07] MEDS: CARVEDILOL 6.25 MG TABLET. PO ×2 (08:17→17:22)
[2017-10-07] MEDS: LOSARTAN POTASSIUM 50 MG TABLET. PO (08:17)
[2017-10-07] MEDS: amLODIPine BESYLATE 10 MG TABLET PO (08:18)
[2017-10-07 09:55] LABS: POC GLUCOSE 147 mg/dL (70-99)
[2017-10-07 11:48] LABS: POC GLUCOSE 119 mg/dL (70-99)
[2017-10-07 16:51] LABS: POC GLUCOSE 179 mg/dL (70-99)
[2017-10-07 17:13] LABS: POC GLUCOSE 63 mg/dL (70-99)
[2017-10-07] MEDS: ATORVASTATIN CALCIUM 20 MG TABLET PO (20:44)
[2017-10-07] MEDS: INSULIN GLARGINE 300 UNITS/3 ML INSULN.PEN. SQ (20:49)
[2017-10-07 20:50] LABS: POC GLUCOSE 171 mg/dL (70-99)
[2017-10-08] MEDS: LEVOTHYROXINE 75 MCG TABLET PO (06:05)
[2017-10-08] MEDS: PANTOPRAZOLE 40 MG TABLET.DR. PO (06:05)
[2017-10-08] MEDS: INSULIN LISPRO 300 UNITS/3 ML INSULN.PEN. SQ ×2 (08:00→11:29)
[2017-10-08 08:01] LABS: POC GLUCOSE 98 mg/dL (70-99)
[2017-10-08] MEDS: SEVELAMER CARBONATE 800 MG TABLET. PO ×2 (08:13→11:26)
[2017-10-08] MEDS: CARVEDILOL 6.25 MG TABLET. PO (09:14)
[2017-10-08] MEDS: SERTRALINE 25 MG TABLET. PO (09:14)
[2017-10-08] MEDS: FOLIC/VIT B COMP W-C (RENAL) TABLET. PO (09:14)
[2017-10-08] MEDS: FUROSEMIDE 40 MG TABLET. PO (09:15)
[2017-10-08] MEDS: LOSARTAN POTASSIUM 50 MG TABLET. PO (09:15)
[2017-10-08] MEDS: amLODIPine BESYLATE 10 MG TABLET PO (09:15)
[2017-10-08] MEDS: CLOPIDOGREL BISULFATE 75 MG TABLET PO (09:15)
[2017-10-08] MEDS: ASPIRIN CHEWABLE 81 MG TABLET. PO (09:15)
[2017-10-08 11:15] LABS: POC GLUCOSE 169 mg/dL (70-99)
== END 2017-10-08 14:10 | disposition home health service (06) | DRG 252 ==
LOC: 5 NORTH 09-28 15:08 → ER 09:40 → 5 NORTH 14:45
PROC: 5A1D70Z Performance of Urinary Filtration, Intermittent, Less than 6 Hours Per Day (ICD-10-PCS; principal; 2017-09-29)
PROC: 5A1D70Z Performance of Urinary Filtration, Intermittent, Less than 6 Hours Per Day (ICD-10-PCS; 2017-10-02)
PROC: 5A1D70Z Performance of Urinary Filtration, Intermittent, Less than 6 Hours Per Day (ICD-10-PCS; 2017-10-04)
PROC: 5A1D70Z Performance of Urinary Filtration, Intermittent, Less than 6 Hours Per Day (ICD-10-PCS; 2017-10-05)
PROC: 5A1D70Z Performance of Urinary Filtration, Intermittent, Less than 6 Hours Per Day (ICD-10-PCS; 2017-10-06)
PROC: 05733ZZ Dilation of Right Innominate Vein, Percutaneous Approach (ICD-10-PCS; 2017-10-08)
PROC: B51W1ZZ Fluoroscopy of Dialysis Shunt/Fistula using Low Osmolar Contrast (ICD-10-PCS; 2017-10-08)
DX: T82.858A Stenosis of other vascular prosthetic devices, implants and grafts, initial encounter (principal); K83.1 Obstruction of bile duct; I13.2 Hypertensive heart and chronic kidney disease with heart failure and with stage 5 chronic kidney disease, or end stage renal disease; E11.22 Type 2 diabetes mellitus with diabetic chronic kidney disease; E11.649 Type 2 diabetes mellitus with hypoglycemia without coma; N18.6 End stage renal disease; I50.22 Chronic systolic (congestive) heart failure; K29.70 Gastritis, unspecified, without bleeding; E89.0 Postprocedural hypothyroidism; F32.9 Major depressive disorder, single episode, unspecified; I25.10 Atherosclerotic heart disease of native coronary artery without angina pectoris; I25.5 Ischemic cardiomyopathy; K21.9 Gastro-esophageal reflux disease without esophagitis; K42.9 Umbilical hernia without obstruction or gangrene; K59.00 Constipation, unspecified; K76.0 Fatty (change of) liver, not elsewhere classified; M17.11 Unilateral primary osteoarthritis, right knee; E21.3 Hyperparathyroidism, unspecified; Z82.49 Family history of ischemic heart disease and other diseases of the circulatory system; Z85.3 Personal history of malignant neoplasm of breast; Z83.3 Family history of diabetes mellitus; Z86.73 Personal history of transient ischemic attack (TIA), and cerebral infarction without residual deficits; Z90.13 Acquired absence of bilateral breasts and nipples; Z90.49 Acquired absence of other specified parts of digestive tract; Z90.710 Acquired absence of both cervix and uterus; Z95.5 Presence of coronary angioplasty implant and graft; Z99.2 Dependence on renal dialysis; Z91.048 Other nonmedicinal substance allergy status
CPT/HCPCS: 36415; 36902; 71045; 74177; 74181; 76937; 80048; 80053; 82947; 82962; 83690; 84484; 85007; 85025; 85610; 85730; 86301; 93005; 96374; 96375; 96376; 97116-GP; 97162-GP; 97166-GO; 97530-GO; 97530-GP; 99152; 99153; 99285; 99285-25; C1725; C1769; C1892; C1894; J0360; J1644; J1815; J2250; J2270; J2405; J3010; J7042; Q0163; Q9967

== ENCOUNTER 2017-12-16 13:43 | Inpatient (IN) | payer MEDICARE, OTHER ==
[2017-12-16 14:23] LABS: POC GLUCOSE 287 mg/dL (70-99)
[2017-12-16 14:50] LABS: ADD MAN DIFF? NO
[2017-12-16 14:59] LABS: INR 1.3 (0.8-1.1); PROTHROMBIN TIME PATIENT 15.9 SEC (11.7-14.0)
[2017-12-16 15:02] LABS: BASO % 0 % (0-3); EOS % 1 % (0-3); HEMATOCRIT 39.1 % (36.0-47.0); HEMOGLOBIN 12.7 g/dL (12.0-15.5); LYMPH # 0.5 x10^3/uL (1.0-4.8); LYMPH % 8 % (24-48); MEAN CORPUSCULAR HEMOGLOBIN 32 pg (25-35); MEAN CORPUSCULAR HGB CONC 32 g/dL (31-37); MEAN CORPUSCULAR VOLUME 100 fL (79-100); MONO # 0.9 x10^3/uL (0.0-1.1); MONO % 14 % (0-9); NEUT # 4.8 x10^3uL (1.8-7.7); NEUT % 77 % (31-73); PLATELET COUNT 151 x10^3/uL (140-400); RED BLOOD COUNT 3.92 x10^6/uL (3.50-5.40); RED CELL DISTRIBUTION WIDTH 18.3 % (11.5-14.5); WHITE BLOOD COUNT 6.2 x10^3/uL (4.0-11.0)
[2017-12-16 15:12] LABS: ANION GAP 14 (6-14); BLOOD UREA NITROGEN 31 mg/dL (7-20); BUN/CREATININE RATIO 6 (6-20); CALCIUM 8.2 mg/dL (8.5-10.1); CARBON DIOXIDE 18 mmol/L (21-32); CHLORIDE 101 mmol/L (98-107); CREATININE 4.8 mg/dL (0.6-1.0); GFR 10.5; GLUCOSE 333 mg/dL (70-99); POTASSIUM 3.9 mmol/L (3.5-5.1); SODIUM 133 mmol/L (136-145)
[2017-12-16 15:18] LABS: ALBUMIN 3.2 g/dL (3.4-5.0); ALBUMIN/GLOBULIN RATIO 0.8 (1.0-1.7); ALK PHOS 108 U/L (46-116); ALT (SGPT) 23 U/L (14-59); AST (SGOT) 16 U/L (15-37); MAGNESIUM 1.9 mg/dL (1.8-2.4); TOTAL BILIRUBIN 0.6 mg/dL (0.2-1.0); TOTAL PROTEIN 7.1 g/dL (6.4-8.2)
[2017-12-16 15:26] LABS: CKMB MASS 2.7 ng/mL (0.0-3.6); CREATINE KINASE 36 U/L (26-192)
[2017-12-16 15:28] LABS: TROPONINI 0.073 ng/mL (0.000-0.055)
[2017-12-16 15:34] LABS: NT-PRO BNP > 35000 pg/mL (0-449)
[2017-12-16] MEDS ORDERED: traMADol 50 MG TABLET PO (16:15)
[2017-12-16] MEDS ORDERED: diphenhydrAMINE HCL 25 MG CAPSULE PO (16:15)
[2017-12-16] MEDS ORDERED: ONDANSETRON PF 4 MG/2 ML VIAL. IV (16:15)
[2017-12-16] MEDS ORDERED: DEXTROSE 50% 25 GM / 50ML DISP.SYRIN. IV (16:15)
[2017-12-16] MEDS ORDERED: LABETALOL 20 MG/4 ML DISP.SYRIN. IVP (16:15)
[2017-12-16] MEDS ORDERED: traZODone 50 MG TABLET. PO (16:15)
[2017-12-16] MEDS ORDERED: oxyCODONE/APAP 10/325 1 TAB TABLET PO (16:15)
[2017-12-16] MEDS ORDERED: ACETAMINOPHEN 325 MG TABLET. PO (16:15)
[2017-12-16] MEDS ORDERED: SODIUM CHLORIDE 38.75 MEQ, SODIUM BICARBONATE VIAL 50 MEQ in IV STERILE WATER 1,000 ML IV (16:15)
[2017-12-16] MEDS: PANTOPRAZOLE 40 MG TABLET.DR. PO (17:33)
[2017-12-16] MEDS: SUCRALFATE 1 GM TABLET. PO (17:33)
[2017-12-16] MEDS: SEVELAMER CARBONATE 800 MG TABLET. PO ×2 (17:33→17:45)
[2017-12-16] MEDS: CARVEDILOL 6.25 MG TABLET. PO (17:34)
[2017-12-16] MEDS: SODIUM BICARBONATE VIAL 50 MEQ in IV 1/2 NORMAL SALINE 1,000 ML IV (17:35)
[2017-12-16] MEDS: INSULIN LISPRO 300 UNITS/3 ML INSULN.PEN. SQ (17:44)
[2017-12-16 18:12] LABS: POC GLUCOSE 257 mg/dL (70-99)
[2017-12-16 20:45] LABS: POC GLUCOSE 212 mg/dL (70-99)
[2017-12-16] MEDS: ATORVASTATIN CALCIUM 20 MG TABLET PO (21:09)
[2017-12-16] MEDS: INSULIN GLARGINE 300 UNITS/3 ML INSULN.PEN. SQ (21:13)
[2017-12-16] MEDS: fentaNYL PF VIAL 100 MCG/2 ML VIAL IV (21:19)
[2017-12-16 22:03] LABS: TROPONINI 0.082 ng/mL (0.000-0.055)
[2017-12-17 04:44] LABS: ADD MAN DIFF? NO
[2017-12-17 04:52] LABS: BASO % 1 % (0-3); EOS # 0.1 x10^3/uL (0.0-0.7); EOS % 1 % (0-3); HEMATOCRIT 38.1 % (36.0-47.0); HEMOGLOBIN 12.5 g/dL (12.0-15.5); LYMPH # 0.6 x10^3/uL (1.0-4.8); LYMPH % 10 % (24-48); MEAN CORPUSCULAR HEMOGLOBIN 33 pg (25-35); MEAN CORPUSCULAR HGB CONC 33 g/dL (31-37); MEAN CORPUSCULAR VOLUME 99 fL (79-100); MONO # 0.7 x10^3/uL (0.0-1.1); MONO % 13 % (0-9); NEUT # 4.5 x10^3uL (1.8-7.7); NEUT % 75 % (31-73); PLATELET COUNT 154 x10^3/uL (140-400); RED BLOOD COUNT 3.84 x10^6/uL (3.50-5.40); RED CELL DISTRIBUTION WIDTH 18.1 % (11.5-14.5)
[2017-12-17 05:19] LABS: ALBUMIN 3.1 g/dL (3.4-5.0); ALBUMIN/GLOBULIN RATIO 0.8 (1.0-1.7); ALK PHOS 104 U/L (46-116); ALT (SGPT) 25 U/L (14-59); ANION GAP 12 (6-14); AST (SGOT) 20 U/L (15-37); BLOOD UREA NITROGEN 34 mg/dL (7-20); BUN/CREATININE RATIO 7 (6-20); CALCIUM 7.6 mg/dL (8.5-10.1); CARBON DIOXIDE 19 mmol/L (21-32); CHLORIDE 103 mmol/L (98-107); CREATININE 5.1 mg/dL (0.6-1.0); GFR 9.8; GLUCOSE 111 mg/dL (70-99); POTASSIUM 4.2 mmol/L (3.5-5.1); SODIUM 134 mmol/L (136-145); TOTAL BILIRUBIN 0.7 mg/dL (0.2-1.0); TOTAL PROTEIN 6.8 g/dL (6.4-8.2)
[2017-12-17] MEDS: INSULIN LISPRO 300 UNITS/3 ML INSULN.PEN. SQ ×3 (08:00→17:39)
[2017-12-17 08:12] LABS: POC GLUCOSE 80 mg/dL (70-99)
[2017-12-17] MEDS: CARVEDILOL 6.25 MG TABLET. PO ×2 (09:37→17:34)
[2017-12-17] MEDS: FOLIC/VIT B COMP W-C (RENAL) TABLET. PO (09:37)
[2017-12-17] MEDS: SEVELAMER CARBONATE 800 MG TABLET. PO ×3 (09:37→12:01)
[2017-12-17] MEDS: PANTOPRAZOLE 40 MG TABLET.DR. PO ×2 (09:37→16:18)
[2017-12-17] MEDS: FUROSEMIDE 40 MG TABLET. PO (09:37)
[2017-12-17] MEDS: CLOPIDOGREL BISULFATE 75 MG TABLET PO (09:37)
[2017-12-17] MEDS: SUCRALFATE 1 GM TABLET. PO ×3 (09:37→16:18)
[2017-12-17] MEDS: ASPIRIN CHEWABLE 81 MG TABLET. PO (09:38)
[2017-12-17] MEDS: SERTRALINE 25 MG TABLET. PO (09:38)
[2017-12-17] MEDS: LEVOTHYROXINE 75 MCG TABLET PO (10:59)
[2017-12-17 12:08] LABS: POC GLUCOSE 176 mg/dL (70-99)
[2017-12-17 17:22] LABS: POC GLUCOSE 207 mg/dL (70-99)
[2017-12-17 20:46] LABS: POC GLUCOSE 201 mg/dL (70-99)
[2017-12-17] MEDS: ATORVASTATIN CALCIUM 20 MG TABLET PO (21:14)
[2017-12-17] MEDS: INSULIN GLARGINE 300 UNITS/3 ML INSULN.PEN. SQ (21:19)
[2017-12-18 04:48] LABS: CHOLESTEROL 102 mg/dL (0-200); HDLC 62 mg/dL (40-60); LDLC 32 mg/dL (0-100); NON-HDL CHOLESTEROL 40 mg/dL (0-129); TRIGLYCERIDES 39 mg/dL (0-150); VLDLC 8 mg/dL (0-40)
[2017-12-18 04:54] LABS: CHOLESTEROL/HDL RATIO 1.6
[2017-12-18] MEDS: PANTOPRAZOLE 40 MG TABLET.DR. PO (06:22)
[2017-12-18] MEDS: LEVOTHYROXINE 75 MCG TABLET PO (06:22)
[2017-12-18] MEDS: SUCRALFATE 1 GM TABLET. PO ×2 (06:23→10:20)
[2017-12-18] MEDS: SEVELAMER CARBONATE 800 MG TABLET. PO ×2 (06:27→10:22)
[2017-12-18 07:43] LABS: POC GLUCOSE 174 mg/dL (70-99)
[2017-12-18] MEDS ORDERED: IV NORMAL SALINE 1000ML BAG 1,000 ML IV ×2 (07:47)
[2017-12-18] MEDS ORDERED: DIALYSIS PATIENT. MC ×2 (08:00)
[2017-12-18] MEDS: FUROSEMIDE 40 MG TABLET. PO (08:32)
[2017-12-18] MEDS: CARVEDILOL 6.25 MG TABLET. PO (08:32)
[2017-12-18] MEDS: INSULIN LISPRO 300 UNITS/3 ML INSULN.PEN. SQ ×2 (08:36→12:20)
[2017-12-18] MEDS: FOLIC/VIT B COMP W-C (RENAL) TABLET. PO (10:20)
[2017-12-18] MEDS: CLOPIDOGREL BISULFATE 75 MG TABLET PO (10:20)
[2017-12-18] MEDS: ASPIRIN CHEWABLE 81 MG TABLET. PO (10:20)
[2017-12-18] MEDS: SERTRALINE 25 MG TABLET. PO (10:20)
[2017-12-18 10:25] LABS: HEMOGLOBIN A1C 6.2 % (4.8-5.6)
[2017-12-18 11:19] LABS: POC GLUCOSE 278 mg/dL (70-99)
[2017-12-23] MEDS ORDERED: ERGOCALCIFEROL (VITAMIN D2) 50,000 UNIT CAPSULE. PO (09:00)
== END 2017-12-18 18:00 | DRG 291 ==
LOC: 2 NORTH 17:23 → ER 13:43 → 5 SOUTH 15:40 → 2 NORTH 17:26
PROVIDERS: Internal Medicine
DX: I13.2 Hypertensive heart and chronic kidney disease with heart failure and with stage 5 chronic kidney disease, or end stage renal disease (principal); N18.6 End stage renal disease; E87.1 Hypo-osmolality and hyponatremia; E87.2 Acidosis; I50.22 Chronic systolic (congestive) heart failure; I42.9 Cardiomyopathy, unspecified; F32.9 Major depressive disorder, single episode, unspecified; M19.90 Unspecified osteoarthritis, unspecified site; E21.3 Hyperparathyroidism, unspecified; K21.9 Gastro-esophageal reflux disease without esophagitis; E89.0 Postprocedural hypothyroidism; E11.22 Type 2 diabetes mellitus with diabetic chronic kidney disease; I25.10 Atherosclerotic heart disease of native coronary artery without angina pectoris; D63.1 Anemia in chronic kidney disease; R62.7 Adult failure to thrive; I37.1 Nonrheumatic pulmonary valve insufficiency; I35.1 Nonrheumatic aortic (valve) insufficiency; I07.1 Rheumatic tricuspid insufficiency; G47.00 Insomnia, unspecified; E11.51 Type 2 diabetes mellitus with diabetic peripheral angiopathy without gangrene; Z86.73 Personal history of transient ischemic attack (TIA), and cerebral infarction without residual deficits; Z85.3 Personal history of malignant neoplasm of breast; Z90.710 Acquired absence of both cervix and uterus; Z90.13 Acquired absence of bilateral breasts and nipples; Z88.5 Allergy status to narcotic agent; Z91.048 Other nonmedicinal substance allergy status; Z91.15 Patient's noncompliance with renal dialysis; Z91.19 Patient's noncompliance with other medical treatment and regimen; Z91.14 Patient's other noncompliance with medication regimen; Z98.49 Cataract extraction status, unspecified eye; Z99.2 Dependence on renal dialysis; Z83.3 Family history of diabetes mellitus; Z82.49 Family history of ischemic heart disease and other diseases of the circulatory system; Z80.8 Family history of malignant neoplasm of other organs or systems
CPT/HCPCS: 36415; 71045; 80053; 80061; 82553; 82962; 83036; 83735; 83880; 84484; 85025; 85610; 93005; 97161-GP; 97166-GO; 99285; 99285-25; J1815; J3010

== ENCOUNTER 2018-01-02 12:02 | Emergency (ER) | payer MEDICARE, OTHER ==
[~2018-01-02] VITALS: Ht 154.9 cm; Wt 73.0 kg
[~2018-01-02 12:02] MED LIST changes: +ERGO500027 PO; +OXYC-411 PO; +Pantoprazole PO; +SUCR1TAB35 PO; +TRAZ-85 PO; -TRAZ50TA15 PO
[2018-01-02 12:12] VITALS: BP 138/62
[2018-01-02 13:13] LABS: CREATININE 4.7 mg/dL (0.6-1.0); GFR 10.8; POTASSIUM 4.3 mmol/L (3.5-5.1)
[2018-01-02 13:30] LABS: BASO % 1 % (0-3); EOS # 0.1 x10^3/uL (0.0-0.7); EOS % 2 % (0-3); HEMATOCRIT 39.2 % (36.0-47.0); HEMOGLOBIN 12.7 g/dL (12.0-15.5); LYMPH # 0.4 x10^3/uL (1.0-4.8); LYMPH % 9 % (24-48); MEAN CORPUSCULAR HEMOGLOBIN 32 pg (25-35); MEAN CORPUSCULAR HGB CONC 32 g/dL (31-37); MEAN CORPUSCULAR VOLUME 100 fL (79-100); MONO # 0.7 x10^3/uL (0.0-1.1); MONO % 14 % (0-9); NEUT # 3.6 x10^3uL (1.8-7.7); NEUT % 75 % (31-73); PLATELET COUNT 182 x10^3/uL (140-400); RED BLOOD COUNT 3.93 x10^6/uL (3.50-5.40); WHITE BLOOD COUNT 4.8 x10^3/uL (4.0-11.0)
--- NOTE | 2018-01-02 13:46 | RAD ---
CT HEAD WITHOUT CONTRAST 01/02/2018 1:12 PM Indication: FALL, HEAD AND NECK PAIN, PRIORS SENT Comparison: CT of head without contrast May 02, 2017 Procedure: Multidetector CT imaging of the head was performed without the administration of contrast. Findings: No evidence of acute intracranial hemorrhage is identified. Encephalomalacia in the left frontal lobe and basal ganglia seen consistent with remote infarct. The appearance is similar to prior exam. Subtle malacia in the right parietal lobe also appears to be present but there is reflecting prior infarcts. No acute mass effect or midline shift is seen. The ventricles and basilar cisterns have an unremarkable configuration no acute abnormal extra-axial fluid collections are identified. Periventricular deep white matter hypoattenuation consistent with chronic small vessel disease is again noted. No acute osseous changes are seen. IMPRESSION: No evidence of acute intracranial hemorrhage. Stable chronic findings as described. CT cervical spine without contrast. 01/02/2018 1:12 PM Indication:FALL, HEAD AND NECK PAIN, PRIORS SENT Comparison Study: CT of the cervical spine April 19, 2017 Technique: Multidetector CT imaging of the cervical spine was obtained without administration of contrast. Findings: The patient is malpositioned somewhat limiting study. The craniocervical junction appears to be intact. The atlantoaxial articulation and craniocervical junctions are intact. Vertebral body heights are maintained. Facet joints are aligned. No prevertebral soft tissue edema is identified. IMPRESSION: No evidence of acute fracture or alignment abnormality involving the cervical spine CT DOSING PQRS STATEMENT: One or more of the following individualized dose reduction techniques were utilized for this examination: 1. Automated exposure control 2. Adjustment of the mA and/or kV according to patient size 3. Use of iterative reconstruction technique Electronically signed by: Yrn Garcia MD (01/02/2018 1:42 PM) [facility]
--- NOTE | 2018-01-02 15:50 | PHYS DOC ---
Past Medical History Past Medical History: Cancer, CHF, CVA, Diabetes-Type II, GERD, Hypertension, Hypothyroid, Renal Failure, TIA, Additional Disease, Other Additional Past Medical Histor: Breast CA Past Surgical History: Cancer Surgery, Cholecystectomy, Hysterectomy, Other Additional Past Surgical Histo: Graft RUE; bilateral mastectomy; thyroidectomy ; hernia Alcohol Use: None Drug Use: None Adult General Chief Complaint Chief Complaint: FATIGUE HPI HPI Patient is a 82 year old female who [facility] from [facility]. Patient with mechanical fall on December 29 with injury to right hip. Patient had x-ray at [facility] facility that was reassuring. Patient sent ER due to concerns that patient isn't complaining of a headache. Patient also reports some generalized neck pain. Patient has been taking tramadol at the [facility] with some relief. Patient with multiple chronic comorbidities. Patient states she has some generalized weakness but states that this is her normal baseline state. Patient with no other new complaints. Patient basically sent by [facility] physician for head CT and neck CT. Review of Systems Review of Systems Constitutional: Denies fever or chills [] Eyes: Denies change in visual acuity, redness, or eye pain [] HENT: Denies nasal congestion or sore throat [] Respiratory: Denies cough or shortness of breath [] Cardiovascular: No chest pain, no orthopnea, no lower extremity edema. GI: Denies abdominal pain, nausea, vomiting, bloody stools or diarrhea [] : Denies dysuria or hematuria [] Musculoskeletal: Denies back pain or joint pain [] Integument: Denies rash or skin lesions [] Neurologic: Denies headache, focal weakness or sensory changes [] Endocrine: Denies polyuria or polydipsia [] All other systems were reviewed and found to be within normal limits, except as documented in this note. Allergies Allergies Allergies Coded Allergies Type Severity Reaction Last Updated Verified adhesive tape Allergy Intermediate PAPER TAPE 09/27/17 Yes morphine Allergy Mild Itching 12/16/17 Yes Physical Exam Physical Exam Constitutional: Well developed, well nourished, appears stated age, chronically ill-appearing. HENT: Normocephalic, atraumatic, no palpable hematoma Eyes: PERRLA, EOMI, Neck: No midline spinal tenderness. Eyes paraspinal tenderness that is mild to moderate Normal range of motion.. [] Cardiovascular:Heart rate regular rhythm, no murmur [] Lungs & Thorax: Bilateral breath sounds clear to auscultation [] Abdomen: Bowel sounds normal, soft, no tenderness, no masses, no pulsatile masses. [] Skin: Warm, dry, no erythema, no rash. [] Back: No tenderness, no CVA tenderness. [] Extremities: Chronic decreased range of motion and strength, +1 edema to bilateral lower extremity Neurologic: Alert and oriented X 3, normal motor function, normal sensory function, no focal deficits noted. [] Psychologic: Affect normal, judgement normal, mood normal. [] Current Patient Data Vital Signs Vital Signs Date Time Temp Pulse Resp B/P (MAP) Pulse Ox O2 Delivery O2 Flow Rate FiO2 01/02/18 12:12 98.2 65 16 138/62 (87) 96 Room Air 98.2 Lab Values Laboratory Tests Test 01/02/18 12:50 01/02/18 15:00 White Blood Count 4.8 x10^3/uL (4.0-11.0) Red Blood Count 3.93 x10^6/uL (3.50-5.40) Hemoglobin 12.7 g/dL (12.0-15.5) Hematocrit 39.2 % (36.0-47.0) Mean Corpuscular Volume 100 fL (79-100) Mean Corpuscular Hemoglobin 32 pg (25-35) Mean Corpuscular Hemoglobin Concent 32 g/dL (31-37) Red Cell Distribution Width 18.0 % (11.5-14.5) H Platelet Count 182 x10^3/uL (140-400) Neutrophils (%) (Auto) 75 % (31-73) H Lymphocytes (%) (Auto) 9 % (24-48) L Monocytes (%) (Auto) 14 % (0-9) H Eosinophils (%) (Auto) 2 % (0-3) Basophils (%) (Auto) 1 % (0-3) Neutrophils # (Auto) 3.6 x10^3uL (1.8-7.7) Lymphocytes # (Auto) 0.4 x10^3/uL (1.0-4.8) L Monocytes # (Auto) 0.7 x10^3/uL (0.0-1.1) Eosinophils # (Auto) 0.1 x10^3/uL (0.0-0.7) Basophils # (Auto) 0.0 x10^3/uL (0.0-0.2) Sodium Level 136 mmol/L (136-145) Potassium Level 4.3 mmol/L (3.5-5.1) Chloride Level 104 mmol/L (98-107) Carbon Dioxide Level 20 mmol/L (21-32) L Anion Gap 12 (6-14) Blood Urea Nitrogen 37 mg/dL (7-20) H Creatinine 4.7 mg/dL (0.6-1.0) H Estimated GFR (Cockcroft-Gault) 10.8 Glucose Level 172 mg/dL (70-99) H Calcium Level 8.0 mg/dL (8.5-10.1) L Troponin I Quantitative 0.092 ng/mL (0.000-0.055) 0.087 ng/mL (0.000-0.055) Laboratory Tests 01/02/18 12:50 Laboratory Tests 01/02/18 12:50 EKG EKG Normal sinus rhythm, heart rate 68, T wave inversion present in V4 V5 V6. No significant ST segment changes.[] Radiology/Procedures Radiology/Procedures CXR [facility] [address] [place], [place] [id number] IMAGING REPORT Signed PATIENT: BRANT HALL ACCOUNT: [id number] : 1935 LOCATION: ER AGE: 82 SEX: F EXAM STATUS: REG ER ORD. PHYSICIAN: JULIANE ALCANTARA DO REASON: trauma PROCEDURE: CT HEAD AND CERVICAL SPINE WO CT HEAD WITHOUT CONTRAST 01/02/2018 1:12 PM Indication: FALL, HEAD AND NECK PAIN, PRIORS SENT Comparison: CT of head without contrast May 02, 2017 Procedure: Multidetector CT imaging of the head was performed without the administration of contrast. Findings: No evidence of acute intracranial hemorrhage is identified. Encephalomalacia in the left frontal lobe and basal ganglia seen consistent with remote infarct. The appearance is similar to prior exam. Subtle malacia in the right parietal lobe also appears to be present but there is reflecting prior infarcts. No acute mass effect or midline shift is seen. The ventricles and basilar cisterns have an unremarkable configuration no acute abnormal extra-axial fluid collections are identified. Periventricular deep white matter hypoattenuation consistent with chronic small vessel disease is again noted. No acute osseous changes are seen. IMPRESSION: No evidence of acute intracranial hemorrhage. Stable chronic findings as described. CT cervical spine without contrast. 01/02/2018 1:12 PM Indication:FALL, HEAD AND NECK PAIN, PRIORS SENT Comparison Study: CT of the cervical spine April 19, 2017 Technique: Multidetector CT imaging of the cervical spine was obtained without administration of contrast. Findings: The patient is malpositioned somewhat limiting study. The craniocervical junction appears to be intact. The atlantoaxial articulation and craniocervical junctions are intact. Vertebral body heights are maintained. Facet joints are aligned. No prevertebral soft tissue edema is identified. IMPRESSION: No evidence of acute fracture or alignment abnormality involving the cervical spine CT DOSING PQRS STATEMENT: One or more of the following individualized dose reduction techniques were utilized for this examination: 1. Automated exposure control 2. Adjustment of the mA and/or kV according to patient size 3. Use of iterative reconstruction technique Electronically signed by: Yrn Calloway MD (01/02/2018 1:42 PM) [facility] DICTATED and SIGNED BY: YRN CALLOWAY MD DATE: 01/02/18 1332 [] Course & Med Decision Making Course & Med Decision Making Pertinent Labs and Imaging studies reviewed. (See chart for details) []Labs and imaging as above in no acute findings. Labs consistent with patient' s chronic medical conditions including end-stage renal disease. Patient advised to follow with PCP. [facility] will be [facility] to [facility]. Patient's been hemodynamically stable in the ER. ER return precautions given. Patient verbalized understanding. All questions answered. Dragon Disclaimer Dragon Disclaimer This electronic medical record was generated, in whole or in part, using a voice recognition dictation system. Departure Departure Impression: Primary Impression: Closed head injury Disposition: 01 HOME, SELF-CARE Condition: STABLE Referrals: ROSALINDA DURON MD (PCP) Patient Instructions: Concussion and Brain Injury Additional Instructions: Thank you for coming to [facility]. Please repeat the attached handouts. Please follow-up with your primary care physician. Return to the ER if your symptoms worsen or you have any other concerns. JULIANE ALCANTARA DO Jan 02, 2018 15:50
--- NOTE | 2018-01-02 16:05 | EKG ---
[facility] [address] [place] [address] Test Date: 2018-01-02 Test Time: 14:58:08 Pat Name: BRANT HALL Department: Room: Gender: F Crew Scheduler: : 1935 Requested By: JULIANE ALCANTARA Order Number: [id number] Reading MD: Bam Shaffer MD Measurements Intervals [place] Rate: 68 P: 56 VT: 192 QRS: -7 QRSD: 78 T: 161 QT: 402 QTc: 432 Interpretive Statements SINUS RHYTHM LEFTWARD AXIS ST & T ABNORMALITY, CONSIDER ANTEROLATERAL ISCHEMIA OR LEFT VENTRICULAR STRAIN NON-SPECIFIC ST/T CHANGES Electronically Signed On 01-03-2018 15:27:58 CDT by Bam Shaffer MD
== END 2018-01-02 16:32 | disposition home or self-care (01) ==
LOC: ER 12:02
DX: S09.90XA Unspecified injury of head, initial encounter (principal); R53.1 Weakness; M54.2 Cervicalgia; E03.9 Hypothyroidism, unspecified; K21.9 Gastro-esophageal reflux disease without esophagitis; Z86.73 Personal history of transient ischemic attack (TIA), and cerebral infarction without residual deficits; I13.0 Hypertensive heart and chronic kidney disease with heart failure and stage 1 through stage 4 chronic kidney disease, or unspecified chronic kidney disease; E11.22 Type 2 diabetes mellitus with diabetic chronic kidney disease; N18.9 Chronic kidney disease, unspecified; I50.9 Heart failure, unspecified; Z88.5 Allergy status to narcotic agent; Z88.8 Allergy status to other drugs, medicaments and biological substances; W18.39XA Other fall on same level, initial encounter; Y93.89 Activity, other specified; Y99.8 Other external cause status; Y92.89 Other specified places as the place of occurrence of the external cause
CPT/HCPCS: 36415; 70450; 72125; 80048; 84484; 85025; 93005; 99285-25

== ENCOUNTER 2018-01-29 11:32 | Emergency (ER) | payer MEDICARE, OTHER ==
[~2018-01-29] VITALS: Ht 154.9 cm; Wt 73.0 kg
[~2018-01-29 11:32] MED LIST changes: -AMLO10TA2 PO; +AMLO10TA6 PO
--- NOTE | 2018-01-29 12:24 | PHYS DOC ---
Past Medical History Past Medical History: Cancer, CHF, CVA, Diabetes-Type II, GERD, Hypertension, Hypothyroid, Renal Failure, TIA, Additional Disease, Other Additional Past Medical Histor: Breast CA Past Surgical History: Cancer Surgery, Cholecystectomy, Hysterectomy, Other Additional Past Surgical Histo: Graft RUE; bilateral mastectomy; thyroidectomy ; hernia Alcohol Use: None Drug Use: None Adult General Chief Complaint Chief Complaint: DIALYSIS PROBLEM HPI HPI Patient is a 82 year old -[place] female who presents to the emergency room with complaints of bleeding from her right arm fistula following dialysis this morning. Patient states this has happened in the past and she had to come to the hospital and have the site sutured. Patient denies any injury or pain at the site. She does report having a headache, states that the dialysis nurse was supposed to give her one of her tramadol for relief of her headache. She denies any nausea, vomiting, dizziness, weakness, numbness, or tingling. States that she does take Plavix. Review of Systems Review of Systems Constitutional: Denies fever or chills [] HENT: Denies nasal congestion or sore throat [] Respiratory: Denies cough or shortness of breath [] Musculoskeletal: Denies back pain or joint pain [] Integument: Denies rash or skin lesions; reports bleeding from fistula on JEAN-CLAUDE after dialysis this morning [] Neurologic: Denies focal weakness or sensory changes; reports headache All other systems were reviewed and found to be within normal limits, except as documented in this note. Current Medications Current Medications Current Medications Medications (Trade) Dose Ordered Sig/Sahil Start Time Stop Time Status Last Admin Dose Admin Cellulose (Surgicel Hemostat 2x3) 1 each 1X ONCE 01/29/18 12:30 01/29/18 12:31 Cancel Gelatin (Gelfoam Size 100) 1 each STK-MED ONCE 01/29/18 12:26 01/29/18 12:27 DC Tramadol HCl (Ultram) 50 mg 1X ONCE 01/29/18 12:30 01/29/18 12:31 DC 01/29/18 12:38 50 MG Allergies Allergies Allergies Coded Allergies Type Severity Reaction Last Updated Verified adhesive tape Allergy Intermediate PAPER TAPE 09/27/17 Yes morphine Allergy Mild Itching 12/16/17 Yes Physical Exam Physical Exam Constitutional: Well developed, well nourished, no acute distress, non-toxic appearance. [] HENT: Normocephalic, atraumatic, bilateral external ears normal, oropharynx moist, no oral exudates, nose normal. [] Eyes: PERRLA, EOMI, conjunctiva normal, no discharge. [] Neck: Normal range of motion, no tenderness, supple, no stridor. [] Cardiovascular:Heart rate regular rhythm, no murmur [] Lungs & Thorax: Bilateral breath sounds clear to auscultation [] Abdomen: Bowel sounds normal, soft, no tenderness, no masses, no pulsatile masses. [] Skin: Warm, dry, no erythema, no rash. [] Back: No tenderness, no CVA tenderness. [] Extremities: No tenderness, no cyanosis, no clubbing, ROM intact, no edema. [] Neurologic: Alert and oriented X 3, normal motor function, normal sensory function, no focal deficits noted. [] Psychologic: Affect normal, judgement normal, mood normal. [] Current Patient Data Vital Signs Vital Signs Date Time Temp Pulse Resp B/P (MAP) Pulse Ox O2 Delivery O2 Flow Rate FiO2 01/29/18 12:38 18 98 Room Air 01/29/18 11:32 99.4 18 181/79 (113) 99.4 EKG EKG [] Radiology/Procedures Radiology/Procedures 1230- gel foam applied to bleeding site of right arm fistula then pressure dressing with 4x4s and coban was applied 1425- pressure bandage removed, no bleeding at this time. Course & Med Decision Making Course & Med Decision Making Pertinent Labs and Imaging studies reviewed. (See chart for details) [] Dragon Disclaimer Dragon Disclaimer This electronic medical record was generated, in whole or in part, using a voice recognition dictation system. Departure Departure Impression: Primary Impression: Hemorrhage of surgically-created arteriovenous fistula Disposition: HOME, SELF-CARE Condition: STABLE Referrals: ROSALINDA DURON MD (PCP) Patient Instructions: AV Fistula, Care After Additional Instructions: Keep the dressing that was applied in place. Follow up with your primary care doctor tomorrow. Return to the ER if your symptoms worsen. Problem Qualifiers Primary Impression: Hemorrhage of surgically-created arteriovenous fistula Encounter type: initial encounter Qualified Codes: T82.838A - Hemorrhage due to vascular prosthetic devices, implants and grafts, initial encounter CARMEN AYALA [employer]ORAT[employer] DIRECTOR Jan 29, 2018 12:24
[2018-01-29] MEDS ORDERED: GELATIN SPONGE SIZE 100. ONE (12:26)
[2018-01-29] MEDS ORDERED: traMADol 50 MG TABLET PO ONE (12:30)
[2018-01-29] MEDS ORDERED: SURGICEL HEMOSTAT 2X3 EACH. TP ONE (12:30)
[2018-01-29 14:00] VITALS: BP 179/122
== END 2018-01-29 15:15 | disposition home or self-care (01) ==
LOC: ER 11:32
DX: T82.838A Hemorrhage due to vascular prosthetic devices, implants and grafts, initial encounter (principal); K21.9 Gastro-esophageal reflux disease without esophagitis; E03.9 Hypothyroidism, unspecified; I13.0 Hypertensive heart and chronic kidney disease with heart failure and stage 1 through stage 4 chronic kidney disease, or unspecified chronic kidney disease; E11.22 Type 2 diabetes mellitus with diabetic chronic kidney disease; N18.9 Chronic kidney disease, unspecified; I50.9 Heart failure, unspecified; Z90.49 Acquired absence of other specified parts of digestive tract; Z90.710 Acquired absence of both cervix and uterus; Z98.890 Other specified postprocedural states; Z86.73 Personal history of transient ischemic attack (TIA), and cerebral infarction without residual deficits; Z88.5 Allergy status to narcotic agent; Z88.8 Allergy status to other drugs, medicaments and biological substances; Y84.1 Kidney dialysis as the cause of abnormal reaction of the patient, or of later complication, without mention of misadventure at the time of the procedure; Y92.89 Other specified places as the place of occurrence of the external cause
CPT/HCPCS: 99283

== ENCOUNTER 2018-02-01 09:32 | Inpatient (IN) | payer MEDICARE, OTHER ==
[~2018-02-01] VITALS: Ht 154.9 cm; Wt 75.3 kg
--- NOTE | 2018-02-01 09:59 | PHYS DOC ---
Past Medical History Past Medical History: Cancer, CHF, CVA, Diabetes-Type II, GERD, Hypertension, Hypothyroid, Renal Failure, TIA, Additional Disease, Other Additional Past Medical Histor: Breast CA Past Surgical History: Cancer Surgery, Cholecystectomy, Hysterectomy, Other Additional Past Surgical Histo: Graft RUE; bilateral mastectomy; thyroidectomy ; hernia Alcohol Use: None Drug Use: None Adult General Chief Complaint Chief Complaint: SHORTNESS OF BREATH HPI HPI Patient is a 82 year old [f__sex] who presents with [] Review of Systems Review of Systems Constitutional: Denies fever or chills [] Eyes: Denies change in visual acuity, redness, or eye pain [] HENT: Denies nasal congestion or sore throat [] Respiratory: Denies cough or shortness of breath [] Cardiovascular: No additional information not addressed in HPI [] GI: Denies abdominal pain, nausea, vomiting, bloody stools or diarrhea [] : Denies dysuria or hematuria [] Musculoskeletal: Denies back pain or joint pain [] Integument: Denies rash or skin lesions [] Neurologic: Denies headache, focal weakness or sensory changes [] Endocrine: Denies polyuria or polydipsia [] All other systems were reviewed and found to be within normal limits, except as documented in this note. Allergies Allergies Allergies Coded Allergies Type Severity Reaction Last Updated Verified adhesive tape Allergy Intermediate PAPER TAPE 09/27/17 Yes morphine Allergy Mild Itching 12/16/17 Yes Physical Exam Physical Exam Constitutional: Well developed, well nourished, no acute distress, non-toxic appearance. [] HENT: Normocephalic, atraumatic, bilateral external ears normal, oropharynx moist, no oral exudates, nose normal. [] Eyes: PERRLA, EOMI, conjunctiva normal, no discharge. [] Neck: Normal range of motion, no tenderness, supple, no stridor. [] Cardiovascular:Heart rate regular rhythm, no murmur [] Lungs & Thorax: Bilateral breath sounds clear to auscultation [] Abdomen: Bowel sounds normal, soft, no tenderness, no masses, no pulsatile masses. [] Skin: Warm, dry, no erythema, no rash. [] Back: No tenderness, no CVA tenderness. [] Extremities: No tenderness, no cyanosis, no clubbing, ROM intact, no edema. [] Neurologic: Alert and oriented X 3, normal motor function, normal sensory function, no focal deficits noted. [] Psychologic: Affect normal, judgement normal, mood normal. [] EKG EKG [] Radiology/Procedures Radiology/Procedures [] Course & Med Decision Making Course & Med Decision Making Pertinent Labs and Imaging studies reviewed. (See chart for details) [] Dragon Disclaimer Dragon Disclaimer This electronic medical record was generated, in whole or in part, using a voice recognition dictation system. Departure Departure Referrals: ROSALINDA DURON MD (PCP) AIME BAE DO Feb 01, 2018 09:59
[2018-02-01 10:33] LABS: CALCIUM 8.5 mg/dL (8.5-10.1); CREATININE 4.2 mg/dL (0.6-1.0); GFR 12.3; POTASSIUM 3.7 mmol/L (3.5-5.1)
[2018-02-01 10:39] LABS: ALBUMIN 3.3 g/dL (3.4-5.0); ALBUMIN/GLOBULIN RATIO 0.8 (1.0-1.7); TOTAL BILIRUBIN 0.7 mg/dL (0.2-1.0); TOTAL PROTEIN 7.3 g/dL (6.4-8.2)
[2018-02-01 10:48] LABS: CREATINE KINASE 30 U/L (26-192)
--- NOTE | 2018-02-01 10:55 | EKG ---
[facility] [address] [place] [address] Test Date: 2018-02-01 Test Time: 10:42:16 Pat Name: BRANT HALL Department: Room: Gender: F Sign Out Clerk: : 1935 Requested By: AIME BAE Order Number: [id number] Reading MD: Bam Shaffer MD Measurements Intervals [place] Rate: 71 P: 0 MS: 164 QRS: -19 QRSD: 80 T: 154 QT: 410 QTc: 446 Interpretive Statements SINUS RHYTHM VENTRICULAR PREMATURE COMPLEX(ES) Electronically Signed On 02-01-2018 12:32:12 CDT by Bam Shaffer MD
[2018-02-01 11:06] LABS: PROTHROMBIN TIME PATIENT 14.4 SEC (11.7-14.0)
--- NOTE | 2018-02-01 11:09 | RAD ---
Portable chest, 02/01/2018: HISTORY: Shortness of breath, congestive heart failure, asthma Comparison is made to a study from 12/16/2017. The heart is enlarged. There is calcific plaquing and tortuosity of the thoracic aorta. A vascular stent is projected over the right innominate region. The pulmonary vascularity is at the upper limits of normal. No pulmonary infiltrate is seen. There is no evidence of pleural fluid. IMPRESSION: 1. Cardiomegaly and aortic atherosclerosis. 2. No acute infiltrates. Electronically signed by: Toñito Herr MD (02/01/2018 11:06 AM) [facility]
[2018-02-01 11:32] LABS: BASO % 1 % (0-3); EOS # 0.1 x10^3/uL (0.0-0.7); EOS % 1 % (0-3); HEMOGLOBIN 12.7 g/dL (12.0-15.5); LYMPH # 0.6 x10^3/uL (1.0-4.8); LYMPH % 12 % (24-48); MEAN CORPUSCULAR HEMOGLOBIN 33 pg (25-35); MEAN CORPUSCULAR HGB CONC 33 g/dL (31-37); MEAN CORPUSCULAR VOLUME 100 fL (79-100); MONO # 0.7 x10^3/uL (0.0-1.1); MONO % 15 % (0-9); NEUT # 3.4 x10^3uL (1.8-7.7); NEUT % 71 % (31-73); PLATELET COUNT 146 x10^3/uL (140-400); RED BLOOD COUNT 3.88 x10^6/uL (3.50-5.40); RED CELL DISTRIBUTION WIDTH 18.6 % (11.5-14.5); WHITE BLOOD COUNT 4.9 x10^3/uL (4.0-11.0)
--- NOTE | 2018-02-01 13:28 | PHYS DOC ---
Past Medical History Past Medical History: Cancer, CHF, CVA, Diabetes-Type II, GERD, Hypertension, Hypothyroid, Renal Failure, TIA, Additional Disease, Other Additional Past Medical Histor: Breast CA Past Surgical History: Cancer Surgery, Cholecystectomy, Hysterectomy, Other Additional Past Surgical Histo: Graft RUE; bilateral mastectomy; thyroidectomy ; hernia Alcohol Use: None Drug Use: None Adult General Chief Complaint Chief Complaint: SHORTNESS OF BREATH [facility] HPI Patient is a 82 year old presented to the ER for evaluation of shortness of air since yesterday. The symptoms got worse with exertion or laying down flat, not able to sleep last night due to shortness of air, she denied any cough or fever. No chest pain, no abdominal pain, no nausea or vomiting. Patient had ESRD, ON HD, has dialysis Sunday, and Sunday. Patient had dialysis yesterday for 3.5 hours, felt like they did not remove enough fluid. Review of Systems Review of Systems Constitutional: Denies fever or chills [] Eyes: Denies change in visual acuity, redness, or eye pain [] HENT: Denies nasal congestion or sore throat [] Respiratory: Positive for shortness of air. Cardiovascular: No additional information not addressed in HPI [] GI: Denies abdominal pain, nausea, vomiting, bloody stools or diarrhea [] : Denies dysuria or hematuria [] Musculoskeletal: Denies back pain or joint pain [] Integument: Denies rash or skin lesions [] Neurologic: Denies headache, focal weakness or sensory changes [] Endocrine: Denies polyuria or polydipsia [] All other systems were reviewed and found to be within normal limits, except as documented in this note. Allergies Allergies Allergies Coded Allergies Type Severity Reaction Last Updated Verified adhesive tape Allergy Intermediate PAPER TAPE 09/27/17 Yes morphine Allergy Mild Itching 12/16/17 Yes Physical Exam Physical Exam Constitutional: Well developed, well nourished, no acute distress, non-toxic appearance. [] HENT: Normocephalic, atraumatic, bilateral external ears normal, oropharynx moist, no oral exudates, nose normal. [] Eyes: PERRLA, EOMI, conjunctiva normal, no discharge. [] Neck: Normal range of motion, no tenderness, supple, no stridor. [] Cardiovascular:Heart rate regular rhythm, no murmur [] Lungs & Thorax: rales in bases of lung bilaterally. Abdomen: Bowel sounds normal, soft, no tenderness, no masses, no pulsatile masses. [] Skin: Warm, dry, no erythema, no rash. [] Back: No tenderness, no CVA tenderness. [] Extremities: No tenderness, no cyanosis, no clubbing, ROM intact, no edema. [] Neurologic: Alert and oriented X 3, normal motor function, normal sensory function, no focal deficits noted. [] Psychologic: Affect normal, judgement normal, mood normal. [] Current Patient Data Vital Signs Vital Signs Date Time Temp Pulse Resp B/P (MAP) Pulse Ox O2 Delivery O2 Flow Rate FiO2 02/01/18 11:30 78 18 173/81 (111) 99 Room Air 02/01/18 09:35 98.1 98.1 Lab Values Laboratory Tests Test 02/01/18 10:15 02/01/18 11:10 Prothrombin Time 14.4 SEC (11.7-14.0) H Prothrombin Time INR 1.2 (0.8-1.1) H PTT 27 SEC (24-38) Sodium Level 138 mmol/L (136-145) Potassium Level 3.7 mmol/L (3.5-5.1) Chloride Level 103 mmol/L (98-107) Carbon Dioxide Level 23 mmol/L (21-32) Anion Gap 12 (6-14) Blood Urea Nitrogen 20 mg/dL (7-20) Creatinine 4.2 mg/dL (0.6-1.0) H Estimated GFR (Cockcroft-Gault) 12.3 BUN/Creatinine Ratio 5 (6-20) L Glucose Level 104 mg/dL (70-99) H Calcium Level 8.5 mg/dL (8.5-10.1) Total Bilirubin 0.7 mg/dL (0.2-1.0) Aspartate Amino Transferase (AST) 16 U/L (15-37) Alanine Aminotransferase (ALT) 17 U/L (14-59) Alkaline Phosphatase 124 U/L (46-116) H Creatine Kinase 30 U/L (26-192) Creatine Kinase MB (Mass) 1.8 ng/mL (0.0-3.6) Creatine Kinase MB Relative Index % (0-4) TS-Oae-X-Type Natriuretic Peptide > 09378 pg/mL (0-449) H Total Protein 7.3 g/dL (6.4-8.2) Albumin 3.3 g/dL (3.4-5.0) L Albumin/Globulin Ratio 0.8 (1.0-1.7) L White Blood Count 4.9 x10^3/uL (4.0-11.0) Red Blood Count 3.88 x10^6/uL (3.50-5.40) Hemoglobin 12.7 g/dL (12.0-15.5) Hematocrit 39.0 % (36.0-47.0) Mean Corpuscular Volume 100 fL (79-100) Mean Corpuscular Hemoglobin 33 pg (25-35) Mean Corpuscular Hemoglobin Concent 33 g/dL (31-37) Red Cell Distribution Width 18.6 % (11.5-14.5) H Platelet Count 146 x10^3/uL (140-400) Neutrophils (%) (Auto) 71 % (31-73) Lymphocytes (%) (Auto) 12 % (24-48) L Monocytes (%) (Auto) 15 % (0-9) H Eosinophils (%) (Auto) 1 % (0-3) Basophils (%) (Auto) 1 % (0-3) Neutrophils # (Auto) 3.4 x10^3uL (1.8-7.7) Lymphocytes # (Auto) 0.6 x10^3/uL (1.0-4.8) L Monocytes # (Auto) 0.7 x10^3/uL (0.0-1.1) Eosinophils # (Auto) 0.1 x10^3/uL (0.0-0.7) Basophils # (Auto) 0.0 x10^3/uL (0.0-0.2) Laboratory Tests 02/01/18 11:10 Laboratory Tests 02/01/18 10:15 EKG EKG [] Radiology/Procedures Radiology/Procedures [] Course & Med Decision Making Course & Med Decision Making Pertinent Labs and Imaging studies reviewed. (See chart for details) [] Dragon Disclaimer Dragon Disclaimer This electronic medical record was generated, in whole or in part, using a voice recognition dictation system. Departure Departure Impression: Primary Impression: ESRD (end stage renal disease) on dialysis Additional Impressions: HTN (hypertension) Dyspnea Disposition: ADMITTED INPATIENT Admitting Physician: Nanette Arango Condition: STABLE Referrals: ROSALINDA DURON MD (PCP) Problem Qualifiers AIME BAE DO Feb 01, 2018 13:28
--- NOTE | 2018-02-01 14:21 | HP ---
ADMIT DATE: 02/01/2018 CHIEF COMPLAINT: Shortness of breath. HISTORY OF PRESENT ILLNESS: The patient is a pleasant elderly female well known to our service. Basically, she presented to the ER with shortness of breath. She is concerned she is volume overloaded. She is on dialysis, rates her symptoms at 10/10. She has associated nausea, worse with moving, better with sitting still. I discussed the case with ER physician. We are going to admit the patient and consult Dr. Greene. I just called Dr. Greene. She is going to go ahead and get her dialyzed again today. She did dialyze yesterday, but felt like she did not get enough fluid taken off. PAST MEDICAL HISTORY: Breast cancer, CHF, stroke, diabetes, hypertension, hyperlipidemia, chronic renal failure on dialysis, TIA, cholecystectomy, hysterectomy, right upper extremity graft, bilateral mastectomies, thyroidectomy, hernia repair, chronic pain, arthritis, depression and anxiety, insomnia, GERD. ALLERGIES: ADHESIVE TAPE AND MORPHINE. FAMILY HISTORY: Hypertension. SOCIAL HISTORY: She does not drink, smoke or take drugs. She lives alone. MEDICATIONS: Reviewed, please refer to the MRAD. REVIEW OF SYSTEMS: GENERAL: No history of weight change, weakness or fevers. SKIN: No bruising, hair changes or rashes. EYES: No blurred, double or loss of vision. NOSE AND THROAT: No history of nosebleeds, hoarseness or sore throat. HEART: No history of palpitations, chest pain or shortness of breath on exertion. LUNGS: She complains of shortness of breath. GASTROINTESTINAL: Denies changes in appetite, nausea, vomiting, diarrhea or constipation. GENITOURINARY: No history of frequency, urgency, hesitancy or nocturia. NEUROLOGIC: Denies history of numbness, tingling, tremor or weakness. PSYCHIATRIC: No history of panic, anxiety or depression. ENDOCRINE: No history of heat or cold intolerance, polyuria or polydipsia. EXTREMITIES: Denies muscle weakness, joint pain, pain on walking or stiffness. PHYSICAL EXAMINATION: VITAL SIGNS: Temperature afebrile, pulse 98, respirations 18, blood pressure 174/75. GENERAL: She is awake, alert, short of breath, appears to be in moderate distress. HEART: Normal S1, S2 with a soft S3. LUNGS: Bibasilar crackles. ABDOMEN: Soft and distended. EXTREMITIES: 1+ edema. SKIN: No rashes. ENDOCRINE: No thyromegaly. LYMPHATICS: No cervical nodes. HEMATOPOIETIC: No bruising. LABORATORY DATA: Hematology is normal. Electrolytes are normal other than a creatinine of 4.2. Her BNP is high at 35,000. ASSESSMENT AND PLAN: Acute on chronic end-stage renal disease with acute flare of volume overload and [id number] systolic and diastolic heart failure. The patient is being admitted. We will get her dialyzed today. I am going to go ahead and consult Cardiology as well. Continue her home meds, cardiac monitoring. PROGNOSIS: Guarded. ANGELICA ROSSI DO DR: AURELIANO/pradip JOB#: [id number] / [id number]
--- NOTE | 2018-02-01 15:29 | PDOC2 ---
CARDIAC CONSULT DATE OF CONSULT Date of Consult DATE: 02/01/18 TIME: 15:12 REASON FOR CONSULT Reason for Consult: CHF REFERRING PHYSICIAN Referring Physician: Nba SOURCE Source: Chart review, Patient HISTORY OF PRESENT ILLNESS HISTORY OF PRESENT ILLNESS This is an 82 yo male admitted for complains of SOA. Positive for orthopnea and PND overnight. Denies any chest pain or palpitations. She had dialysis Sunday which was cut short due to very high BP. Yesterday she had another dialysis and 2 KG was taken off. Generally she said her dry wt goal is around 166 lb. Her SBP yesterday as she recalled during dialysis was in the 170s. She took her thyroid med today but did not take her BP meds since she came to ED. She is currently not on any diuretic and has not received this since being transferred to [facility] recently. she still urinates. No frequent dizziness, and no recent falls or injury. Denies any wheezing, fever or chills or progressive coughing. Verbalized compliance to her medications. PAST MEDICAL HISTORY Past Medical History Cardiovascular: CAD (with PCI to RCA), CHF, HTN, Other (cardiac arrest 10/2017 after EGD - ? PEA; ? vasovagal), valvular insufficiency (mod AI,TR,PVR) Pulmonary: Other (none) CENTRAL NERVOUS SYSTEM: TIA GI: GERD Heme/Onc: Anemia NOS, Cancer (left breast with mastectomy; right breast with cystic disease and mastectomy) Hepatobiliary: No pertinent hx Psych: No pertinent hx Musculoskeletal: Osteoarthritis Rheumatologic: No pertinent hx Infectious disease: No pertinent hx ENT: No pertinent hx Renal/: Chronic renal failure (with HD) Endocrine: Diabetes Dermatology: No pertinent hx PAST SURGICAL HISTORY Past Surgical History Appendectomy, Cholecystectomy, Cataract Removal, Mastectomy (bilateral), Hysterectomy, Other (dialysis grafts) FAMILY HISTORY Family History Cancer, Diabetes, Heart Disease SOCIAL HISTORY Social History Smoke: No ALCOHOL: none Drugs: None Lives: Senior Living ([facility] ALLERGIES ALLERGIES: Coded Allergies: adhesive tape (Verified Allergy, Intermediate, PAPER TAPE, 09/27/17) morphine (Verified Allergy, Mild, Itching, 12/16/17) ROS Review of System 14 point ROS evaluated with pertinent positives noted per HPI PHYSICAL EXAM General: Alert, Oriented X3, Cooperative, No acute distress HEENT: Atraumatic, Mucous membr. moist/pink Lungs: Clear to auscultation, Normal air movement Heart: Regular rate (SR), Other (S4, 3/6 systolic murmur to LLS border) Abdomen: Soft, No tenderness Extremities: No cyanosis, Other (1-2+ bilateral LE pitting edema) Skin: No breakdown, No significant lesion Neuro: Normal speech, Sensation intact Psych/Mental Status: Mental status NL, Mood NL MUSCULOSKELETAL: Osteoarthritic changes both hands VITALS VITALS Vital Signs Date Time Temp Pulse Resp B/P (MAP) Pulse Ox O2 Delivery O2 Flow Rate FiO2 02/01/18 12:00 74 18 177/77 (110) 100 Room Air 02/01/18 09:35 98.1 98.1 LABS Lab: Laboratory Tests Test 02/01/18 10:15 02/01/18 11:10 Prothrombin Time 14.4 SEC (11.7-14.0) Prothromb Time International Ratio 1.2 (0.8-1.1) Activated Partial Thromboplast Time 27 SEC (24-38) Sodium Level 138 mmol/L (136-145) Potassium Level 3.7 mmol/L (3.5-5.1) Chloride Level 103 mmol/L (98-107) Carbon Dioxide Level 23 mmol/L (21-32) Anion Gap 12 (6-14) Blood Urea Nitrogen 20 mg/dL (7-20) Creatinine 4.2 mg/dL (0.6-1.0) Estimated GFR (Cockcroft-Gault) 12.3 BUN/Creatinine Ratio 5 (6-20) Glucose Level 104 mg/dL (70-99) Calcium Level 8.5 mg/dL (8.5-10.1) Total Bilirubin 0.7 mg/dL (0.2-1.0) Aspartate Amino Transf (AST/SGOT) 16 U/L (15-37) Alanine Aminotransferase (ALT/SGPT) 17 U/L (14-59) Alkaline Phosphatase 124 U/L (46-116) Creatine Kinase 30 U/L (26-192) Creatine Kinase MB (Mass) 1.8 ng/mL (0.0-3.6) Creatine Kinase MB Relative Index % (0-4) VJ-Das-S-Type Natriuretic Peptide > 95067 pg/mL (0-449) Total Protein 7.3 g/dL (6.4-8.2) Albumin 3.3 g/dL (3.4-5.0) Albumin/Globulin Ratio 0.8 (1.0-1.7) White Blood Count 4.9 x10^3/uL (4.0-11.0) Red Blood Count 3.88 x10^6/uL (3.50-5.40) Hemoglobin 12.7 g/dL (12.0-15.5) Hematocrit 39.0 % (36.0-47.0) Mean Corpuscular Volume 100 fL (79-100) Mean Corpuscular Hemoglobin 33 pg (25-35) Mean Corpuscular Hemoglobin Concent 33 g/dL (31-37) Red Cell Distribution Width 18.6 % (11.5-14.5) Platelet Count 146 x10^3/uL (140-400) Neutrophils (%) (Auto) 71 % (31-73) Lymphocytes (%) (Auto) 12 % (24-48) Monocytes (%) (Auto) 15 % (0-9) Eosinophils (%) (Auto) 1 % (0-3) Basophils (%) (Auto) 1 % (0-3) Neutrophils # (Auto) 3.4 x10^3uL (1.8-7.7) Lymphocytes # (Auto) 0.6 x10^3/uL (1.0-4.8) Monocytes # (Auto) 0.7 x10^3/uL (0.0-1.1) Eosinophils # (Auto) 0.1 x10^3/uL (0.0-0.7) Basophils # (Auto) 0.0 x10^3/uL (0.0-0.2) ECHOCARDIOGRAM ECHOCARDIOGRAM <Conclusion> The systolic function is severely impaired. EF 25%. There is global hypokinesis of the left ventricle. Tissue Doppler imaging reveals severe left ventricular diastolic dysfunction. The right ventricle is moderately dilated. RV Systolic function is visually estimated to be moderately reduced. Doppler and Color Flow revealed moderate aortic regurgitation. Doppler and Color Flow revealed moderate tricuspid regurgitation. Doppler and Color Flow revealed moderate pulmonic valvular regurgitation. DATE: 10/23/17 1115 STRESS TEST STRESS TEST Conclusion 1. Regadenoson cardioisotope stress test did not show any evidence of ischemia or infarct. 2. Mild global left ventricular systolic dysfunction with ejection fraction calculated at 48%. 3. Low to intermediate risk for cardiac events. DATE: 12/01/15 1349 HEART CATH HEART CATH Findings. Hemodynamics. LV pressure 140/26, aortic root pressure of 146/90. Coronaries. Left main. The left main was a normal-size vessel with no lesions. Left anterior descending. The LAD was a moderate-sized vessel with normal distribution. It had a mid 10% lesion and a distal 10% lesion. There was also vascular blushing in the area of the septum with probable arteriovenous shunting. Left circumflex. The left circumflex was nondominant. It has a mid 15% lesion and distal small vessel disease. Right coronary artery. Right coronary was a dominant vessel. It had an ostial greater than 80% lesion and a distal 15% lesion. <Conclusion> Severe single-vessel coronary artery disease with an ostial greater than 80% right coronary lesion. Successful bare metal stenting of the ostial lesion. Mild coronary artery disease in the left system. Vascular blushing in the area of the septum with probable arteriovenous shunting. DATE: 02/21/17 1410 ASSESSMENT/PLAN ASSESSMENT/PLAN 1. Acute on chronic systolic/diastolic dysfunction: likely induced by uncontrolled HTN 2. 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 EF 25% 10/2017. NYHA 2 3. ESRD: dialysis done yesterday 4. HTN: labile episodes noted during dialysis as well. 5. DM2/HLP 6. CAD: CP free. EKG SR without acute changes by comparison. PCI/BMS to RCA 2016 Recommendations 1. May need to decrease dry wt. Defer to nephrology. Fluid off loading per HD possibly today. 2. Labetalol IV PRN. Defer lasix to nephrology as she has been off this for >1mo 3. Restart home coreg. Will consider adding ACEi or ARB if ok with nephrology pending BP trend post HD otherwise imdur or norvasc. 4. ASA/plavix and statin. 5. No noted discussion for potential AICD as pt had 2 failed appointments. further discussion once w/u is complete. 6. Limited TTE and note EF. Troponin, TSH, and lipids. VEDA SPRING [employer]IFESTYLE DIRECTOR Feb 01, 2018 15:29
[2018-02-01 15:31] VITALS: BP 162/77
[2018-02-01] MEDS ORDERED: LABETALOL 20 MG/4 ML DISP.SYRIN. IVP ONE (16:00)
[2018-02-01] MEDS ORDERED: LABETALOL 20 MG/4 ML DISP.SYRIN. IVP PRN (16:00)
[2018-02-01 16:42] LABS: CHOLESTEROL/HDL RATIO 1.4
[2018-02-01] MEDS ORDERED: IV NORMAL SALINE 1000ML BAG 1,000 ML IV PRN ×2 (16:42)
[2018-02-01] MEDS ORDERED: DIALYSIS PATIENT. MC PRN ×2 (16:45)
[2018-02-01 19:00] VITALS: BP 149/63
[2018-02-01] MEDS ORDERED: diphenhydrAMINE 50 MG/ML VIAL IVP ONE (20:15)
[2018-02-01] MEDS ORDERED: HYDR-2869 PO (21:53)
[2018-02-01] MEDS ORDERED: traMADol 50 MG TABLET PO PRN (22:15)
[2018-02-01] MEDS: traZODone 50 MG TABLET. PO PRN (22:19)
[2018-02-01] MEDS: CARVEDILOL 6.25 MG TABLET. PO SCH (22:19)
[2018-02-01] MEDS: ATORVASTATIN CALCIUM 20 MG TABLET PO SCH (22:19)
[2018-02-01 23:00] VITALS: BP 148/57
[2018-02-02 03:00] VITALS: BP 117/52
[2018-02-02] MEDS: LEVOTHYROXINE 75 MCG TABLET PO SCH (06:36)
[2018-02-02 07:20] VITALS: BP 138/61
[2018-02-02] MEDS: CLOPIDOGREL BISULFATE 75 MG TABLET PO SCH (08:22)
[2018-02-02] MEDS: diphenhydrAMINE HCL 25 MG CAPSULE PO PRN (08:23)
[2018-02-02] MEDS: CARVEDILOL 6.25 MG TABLET. PO SCH ×2 (08:23→16:59)
[2018-02-02] MEDS: ASPIRIN CHEWABLE 81 MG TABLET. PO SCH (08:23)
[2018-02-02 11:00] VITALS: BP 134/60
--- NOTE | 2018-02-02 11:14 | PDOC ---
PROGRESS NOTES Subjective Subjective Patient seen and examined She reports feeling better today. Objective Objective Vital Signs Date Time Temp Pulse Resp B/P (MAP) Pulse Ox O2 Delivery O2 Flow Rate FiO2 02/02/18 08:23 67 138/61 02/02/18 08:00 Room Air 02/02/18 07:20 97.7 20 99 97.7 Intake and Output 02/02/18 07:00 Intake Total 120 ml Output Total 0 ml Balance 120 ml Intake Oral 120 ml Output Urine Total 0 ml # Voids 2 Physical Exam Abdomen: Normal bowel sounds Heart: Regular rate General: mild distress Lungs: Other (slightly decreased breath sounds) Assessment Assessment Problems Medical Problems: (1) Dyspnea Status: Acute (2) ESRD (end stage renal disease) on dialysis Status: Acute (3) HTN (hypertension) Status: Acute ASSESSMENT/PLAN 1. Acute on chronic systolic/diastolic dysfunction: The patient is improved on present medications. She denies any chest discomfort. 2. 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 EF 25% 10/2017. NYHA 2. Clinically improving. Discuss possible AICD. 3. ESRD: dialysis as per renal.done 4. HTN: labile episodes. Improved this morning. 5. DM2/HLP 6. CAD: CP free. EKG SR without acute changes by comparison. PCI/BMS to RCA 2016. Continue present treatment. Comment Review of Relevant I have reviewed the following items qing (where applicable) has been applied. Labs Laboratory Tests Test 02/01/18 10:15 02/01/18 11:10 02/01/18 21:42 02/02/18 07:32 Prothrombin Time 14.4 SEC (11.7-14.0) Prothromb Time International Ratio 1.2 (0.8-1.1) Activated Partial Thromboplast Time 27 SEC (24-38) Sodium Level 138 mmol/L (136-145) Potassium Level 3.7 mmol/L (3.5-5.1) Chloride Level 103 mmol/L (98-107) Carbon Dioxide Level 23 mmol/L (21-32) Anion Gap 12 (6-14) Blood Urea Nitrogen 20 mg/dL (7-20) Creatinine 4.2 mg/dL (0.6-1.0) Estimated GFR (Cockcroft-Gault) 12.3 BUN/Creatinine Ratio 5 (6-20) Glucose Level 104 mg/dL (70-99) Calcium Level 8.5 mg/dL (8.5-10.1) Total Bilirubin 0.7 mg/dL (0.2-1.0) Aspartate Amino Transf (AST/SGOT) 16 U/L (15-37) Alanine Aminotransferase (ALT/SGPT) 17 U/L (14-59) Alkaline Phosphatase 124 U/L (46-116) Creatine Kinase 30 U/L (26-192) Creatine Kinase MB (Mass) 1.8 ng/mL (0.0-3.6) Creatine Kinase MB Relative Index % (0-4) Troponin I Quantitative 0.029 ng/mL (0.000-0.055) QR-Mbo-U-Type Natriuretic Peptide > 57373 pg/mL (0-449) Total Protein 7.3 g/dL (6.4-8.2) Albumin 3.3 g/dL (3.4-5.0) Albumin/Globulin Ratio 0.8 (1.0-1.7) Triglycerides Level 42 mg/dL (0-150) Cholesterol Level 94 mg/dL (0-200) LDL Cholesterol, Calculated 18 mg/dL (0-100) VLDL Cholesterol, Calculated 8 mg/dL (0-40) Non-HDL Cholesterol Calculated 26 mg/dL (0-129) HDL Cholesterol 68 mg/dL (40-60) Cholesterol/HDL Ratio 1.4 Thyroid Stimulating Hormone (TSH) 3.748 uIU/mL (0.358-3.74) White Blood Count 4.9 x10^3/uL (4.0-11.0) Red Blood Count 3.88 x10^6/uL (3.50-5.40) Hemoglobin 12.7 g/dL (12.0-15.5) Hematocrit 39.0 % (36.0-47.0) Mean Corpuscular Volume 100 fL (79-100) Mean Corpuscular Hemoglobin 33 pg (25-35) Mean Corpuscular Hemoglobin Concent 33 g/dL (31-37) Red Cell Distribution Width 18.6 % (11.5-14.5) Platelet Count 146 x10^3/uL (140-400) Neutrophils (%) (Auto) 71 % (31-73) Lymphocytes (%) (Auto) 12 % (24-48) Monocytes (%) (Auto) 15 % (0-9) Eosinophils (%) (Auto) 1 % (0-3) Basophils (%) (Auto) 1 % (0-3) Neutrophils # (Auto) 3.4 x10^3uL (1.8-7.7) Lymphocytes # (Auto) 0.6 x10^3/uL (1.0-4.8) Monocytes # (Auto) 0.7 x10^3/uL (0.0-1.1) Eosinophils # (Auto) 0.1 x10^3/uL (0.0-0.7) Basophils # (Auto) 0.0 x10^3/uL (0.0-0.2) Glucose (Fingerstick) 87 mg/dL (70-99) 118 mg/dL (70-99) Laboratory Tests Test 02/01/18 21:42 02/02/18 07:32 Glucose (Fingerstick) 87 mg/dL (70-99) 118 mg/dL (70-99) Medications Current Medications Aspirin (Children'S Aspirin) 81 mg DAILY PO Last administered on 02/02/18at 08: 23; Start 02/02/18 at 09:00 Atorvastatin Calcium (Lipitor) 20 mg HS PO Last administered on 02/01/18at 22:19 ; Start 02/01/18 at 21:00 Carvedilol (Coreg) 6.25 mg BIDWMEALS PO Last administered on 02/02/18at 08:23; Start 02/01/18 at 17:00 Clopidogrel Bisulfate (Plavix) 75 mg DAILY PO Last administered on 02/02/18at 08 :22; Start 02/02/18 at 09:00 Labetalol HCl (Normodyne Iv Push) 10 mg 1X ONCE IVP ; Start 02/01/18 at 16:00; Stop 02/01/18 at 16:07; Status DC Labetalol HCl (Normodyne Iv Push) 20 mg PRN Q2HR PRN IVP HYPERTENSION, SEE COMMENTS; Start 02/01/18 at 16:00 Sodium Chloride 1,000 ml @ 1,000 mls/hr Q1H PRN IV hypotension; Start 02/01/18 at 16:42; Stop 02/01/18 at 22:41; Status DC Sodium Chloride 1,000 ml @ 400 mls/hr Q2H30M PRN IV PATENCY; Start 02/01/18 at 16:42; Stop 02/02/18 at 04:41; Status DC Info (PHARMACY MONITORING -- do not chart) 1 each PRN DAILY PRN MC SEE COMMENTS ; Start 02/01/18 at 16:45 Info (PHARMACY MONITORING -- do not chart) 1 each PRN DAILY PRN MC SEE COMMENTS ; Start 02/01/18 at 16:45; Status UNV Diphenhydramine HCl (Benadryl) 25 mg 1X ONCE IVP Last administered on at 20:12; Start 02/01/18 at 20:15; Stop 02/01/18 at 20:16; Status DC Diphenhydramine HCl (Benadryl) 25 mg PRN Q6HRS PRN PO ITCHING Last administered on 02/02/18at 08:23; Start 02/01/18 at 22:15 Levothyroxine Sodium (Synthroid) 75 mcg DAILYAC PO Last administered on at 06:36; Start 02/02/18 at 07:30 Tramadol HCl (Ultram) 50 mg PRN Q6HRS PRN PO MODERATE PAIN; Start 02/01/18 at 22:15 Trazodone HCl (Desyrel) 50 mg PRN QHS PRN PO INSOMNIA 1ST CHOICE Last administered on 02/01/18at 22:19; Start 02/01/18 at 22:15 Active Scripts Active Carafate (Sucralfate) 1 Gm Tablet 1 Gm PO TIDAC 30 Days Vitamin D2 (Ergocalciferol (Vitamin D2)) 50,000 Unit Capsule 50,000 Unit PO WEEKLY 30 Days [Pantoprazole] 40 MG Tablet.dr 40 Mg PO BIDAC 30 Days Lantus Solostar (Insulin Glargine,Hum.rec.anlog) 100 Unit/1 Ml Insuln.pen 5 Units SQ QHS 30 Days Carvedilol 3.125 Mg Tablet 6.25 Mg PO BIDWMEALS 30 Days Tramadol Hcl 50 Mg Tablet 1 Tab PO PRN Q6HRS PRN Trazodone Hcl 50 Mg Tablet 50 Mg PO PRN QHS PRN 30 Days Sertraline Hcl 25 Mg Tablet 25 Mg PO DAILY 30 Days Reported Hydralazine Hcl 50 Mg Tablet 50 Mg PO BID Lipitor (Atorvastatin Calcium) 20 Mg Tablet 20 Mg PO HS Plavix (Clopidogrel Bisulfate) 75 Mg Tablet 75 Mg PO DAILY Aspirin 81 Mg Tab.chew 81 Mg PO DAILY Synthroid (Levothyroxine Sodium) 75 Mcg Tablet 75 Mcg PO DAILYAC Renvela (Sevelamer Carbonate) 800 Mg Tablet 800 Mg PO TIDAC Nephro-Manuel Tablet (Folic Acid/Vitamin B Comp W-C) 0.8 Mg Tablet 0.8 Mg PO DAILY Lasix (Furosemide) 40 Mg Tablet 40 Mg PO DAILY Vitals/I & O Vital Sign - Last 24 Hours 02/01/18 02/01/18 02/01/18 02/01/18 11:30 12:00 15:31 16:00 Temp 98.1 98.1 Pulse 78 74 77 Resp 18 18 16 B/P (MAP) 173/81 (111) 177/77 (110) 162/77 (105) Pulse Ox 99 100 96 O2 Delivery Room Air Room Air Room Air Room Air 02/01/18 02/01/18 02/01/18 02/01/18 19:00 21:00 22:19 23:00 Temp 98.2 97.7 98.2 97.7 Pulse 70 70 76 Resp 18 B/P (MAP) 149/63 (91) 149/63 148/57 (87) Pulse Ox 99 98 O2 Delivery Room Air Room Air Room Air 02/02/18 02/02/18 02/02/18 02/02/18 03:00 07:20 08:00 08:23 Temp 98.4 97.7 98.4 97.7 Pulse 68 67 67 Resp 18 20 B/P (MAP) 117/52 (73) 138/61 (86) 138/61 Pulse Ox 94 99 O2 Delivery Room Air Intake and Output 02/01/18 02/01/18 02/02/18 15:00 23:00 07:00 Intake Total 120 ml Output Total 0 ml Balance 120 ml 0 ml BRIDGETT SALINAS MD Feb 02, 2018 11:14
--- NOTE | 2018-02-02 11:26 | PDOC ---
PROGRESS NOTES Chief Complaint Chief Complaint 1. Acute on chronic systolic/diastolic dysfunction: likely induced by uncontrolled HTN 2. 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 EF 25% 10/2017. NYHA 2 3. ESRD: dialysis done yesterday 4. HTN: labile episodes noted during dialysis as well. 5. DM2/HLP 6. CAD: CP free. EKG SR without acute changes by comparison. PCI/BMS to RCA 2016 History of Present Illness History of Present Illness she has no complaints,better S OA but claims SOA on long distances or maybe even short Legs are better, I did advise her to keep the legs elevated Lives at home with her own walker, with the family We'll most likely at least need home health, seemingly will not be interested in SNU Wants not to be discharged too soon History of being discharged too early, she claims- [facility] or from the hospital and she is back in the ER again too soon Plan: Follow cards recs, PT OT, dialysis Sunday Supprotive meds [facility] HH on dc Vitals Vitals Vital Signs Date Time Temp Pulse Resp B/P (MAP) Pulse Ox O2 Delivery O2 Flow Rate FiO2 02/02/18 08:23 67 138/61 02/02/18 08:00 Room Air 02/02/18 07:20 97.7 20 99 97.7 Physical Exam General: Alert, Oriented X3, Cooperative, mild distress Heart: Regular rate, Normal S1, Normal S2 Abdomen: Normal bowel sounds Extremities: No clubbing, No cyanosis, Other (1-2+ bilateral LE pitting edema) Skin: No breakdown, No significant lesion Labs LABS Laboratory Tests Test 02/01/18 21:42 02/02/18 07:32 Glucose (Fingerstick) 87 mg/dL (70-99) 118 mg/dL (70-99) Review of Systems Review of Systems A 14 point ROS was completed with the following noted as positive: Other systems reviewed and negative. \CONSTITUTIONAL: No fever or chills EYES: No recent changes SKIN: No rash or itching CARDIOVASCULAR: No chest pain, syncope, palpitations, or edema RESPIRATORY: No SOB or cough GASTROINTESTINAL: No nausea, vomiting or abdominal pain NEUROLOGICAL: No headaches or weakness ENDOCRINE: No cold or heat intolerance GENITOURINARY: No urgency or frequency of urination MUSCULOSKELETAL: No back pain or joint pain LYMPHATICS: No enlarged lymph nodes PSYCHIATRIC: No anxiety or depression Assessment and Plan Assessmemt and Plan Problems Medical Problems: (1) Dyspnea Status: Acute (2) ESRD (end stage renal disease) on dialysis Status: Acute (3) HTN (hypertension) Status: Acute Comment Review of Relevant I have reviewed the following items qing (where applicable) has been applied. Labs Laboratory Tests Test 02/01/18 10:15 02/01/18 11:10 02/01/18 21:42 02/02/18 07:32 Prothrombin Time 14.4 SEC (11.7-14.0) Prothromb Time International Ratio 1.2 (0.8-1.1) Activated Partial Thromboplast Time 27 SEC (24-38) Sodium Level 138 mmol/L (136-145) Potassium Level 3.7 mmol/L (3.5-5.1) Chloride Level 103 mmol/L (98-107) Carbon Dioxide Level 23 mmol/L (21-32) Anion Gap 12 (6-14) Blood Urea Nitrogen 20 mg/dL (7-20) Creatinine 4.2 mg/dL (0.6-1.0) Estimated GFR (Cockcroft-Gault) 12.3 BUN/Creatinine Ratio 5 (6-20) Glucose Level 104 mg/dL (70-99) Calcium Level 8.5 mg/dL (8.5-10.1) Total Bilirubin 0.7 mg/dL (0.2-1.0) Aspartate Amino Transf (AST/SGOT) 16 U/L (15-37) Alanine Aminotransferase (ALT/SGPT) 17 U/L (14-59) Alkaline Phosphatase 124 U/L (46-116) Creatine Kinase 30 U/L (26-192) Creatine Kinase MB (Mass) 1.8 ng/mL (0.0-3.6) Creatine Kinase MB Relative Index % (0-4) Troponin I Quantitative 0.029 ng/mL (0.000-0.055) ET-Jfx-M-Type Natriuretic Peptide > 10844 pg/mL (0-449) Total Protein 7.3 g/dL (6.4-8.2) Albumin 3.3 g/dL (3.4-5.0) Albumin/Globulin Ratio 0.8 (1.0-1.7) Triglycerides Level 42 mg/dL (0-150) Cholesterol Level 94 mg/dL (0-200) LDL Cholesterol, Calculated 18 mg/dL (0-100) VLDL Cholesterol, Calculated 8 mg/dL (0-40) Non-HDL Cholesterol Calculated 26 mg/dL (0-129) HDL Cholesterol 68 mg/dL (40-60) Cholesterol/HDL Ratio 1.4 Thyroid Stimulating Hormone (TSH) 3.748 uIU/mL (0.358-3.74) White Blood Count 4.9 x10^3/uL (4.0-11.0) Red Blood Count 3.88 x10^6/uL (3.50-5.40) Hemoglobin 12.7 g/dL (12.0-15.5) Hematocrit 39.0 % (36.0-47.0) Mean Corpuscular Volume 100 fL (79-100) Mean Corpuscular Hemoglobin 33 pg (25-35) Mean Corpuscular Hemoglobin Concent 33 g/dL (31-37) Red Cell Distribution Width 18.6 % (11.5-14.5) Platelet Count 146 x10^3/uL (140-400) Neutrophils (%) (Auto) 71 % (31-73) Lymphocytes (%) (Auto) 12 % (24-48) Monocytes (%) (Auto) 15 % (0-9) Eosinophils (%) (Auto) 1 % (0-3) Basophils (%) (Auto) 1 % (0-3) Neutrophils # (Auto) 3.4 x10^3uL (1.8-7.7) Lymphocytes # (Auto) 0.6 x10^3/uL (1.0-4.8) Monocytes # (Auto) 0.7 x10^3/uL (0.0-1.1) Eosinophils # (Auto) 0.1 x10^3/uL (0.0-0.7) Basophils # (Auto) 0.0 x10^3/uL (0.0-0.2) Glucose (Fingerstick) 87 mg/dL (70-99) 118 mg/dL (70-99) Laboratory Tests Test 02/01/18 21:42 02/02/18 07:32 Glucose (Fingerstick) 87 mg/dL (70-99) 118 mg/dL (70-99) Medications Current Medications Aspirin (Children'S Aspirin) 81 mg DAILY PO Last administered on 02/02/18at 08: 23; Start 02/02/18 at 09:00 Atorvastatin Calcium (Lipitor) 20 mg HS PO Last administered on 02/01/18at 22:19 ; Start 02/01/18 at 21:00 Carvedilol (Coreg) 6.25 mg BIDWMEALS PO Last administered on 02/02/18at 08:23; Start 02/01/18 at 17:00 Clopidogrel Bisulfate (Plavix) 75 mg DAILY PO Last administered on 02/02/18at 08 :22; Start 02/02/18 at 09:00 Labetalol HCl (Normodyne Iv Push) 10 mg 1X ONCE IVP ; Start 02/01/18 at 16:00; Stop 02/01/18 at 16:07; Status DC Labetalol HCl (Normodyne Iv Push) 20 mg PRN Q2HR PRN IVP HYPERTENSION, SEE COMMENTS; Start 02/01/18 at 16:00 Sodium Chloride 1,000 ml @ 1,000 mls/hr Q1H PRN IV hypotension; Start 02/01/18 at 16:42; Stop 02/01/18 at 22:41; Status DC Sodium Chloride 1,000 ml @ 400 mls/hr Q2H30M PRN IV PATENCY; Start 02/01/18 at 16:42; Stop 02/02/18 at 04:41; Status DC Info (PHARMACY MONITORING -- do not chart) 1 each PRN DAILY PRN MC SEE COMMENTS ; Start 02/01/18 at 16:45 Info (PHARMACY MONITORING -- do not chart) 1 each PRN DAILY PRN MC SEE COMMENTS ; Start 02/01/18 at 16:45; Status UNV Diphenhydramine HCl (Benadryl) 25 mg 1X ONCE IVP Last administered on at 20:12; Start 02/01/18 at 20:15; Stop 02/01/18 at 20:16; Status DC Diphenhydramine HCl (Benadryl) 25 mg PRN Q6HRS PRN PO ITCHING Last administered on 02/02/18at 08:23; Start 02/01/18 at 22:15 Levothyroxine Sodium (Synthroid) 75 mcg DAILYAC PO Last administered on at 06:36; Start 02/02/18 at 07:30 Tramadol HCl (Ultram) 50 mg PRN Q6HRS PRN PO MODERATE PAIN; Start 02/01/18 at 22:15 Trazodone HCl (Desyrel) 50 mg PRN QHS PRN PO INSOMNIA 1ST CHOICE Last administered on 02/01/18at 22:19; Start 02/01/18 at 22:15 Active Scripts Active Carafate (Sucralfate) 1 Gm Tablet 1 Gm PO TIDAC 30 Days Vitamin D2 (Ergocalciferol (Vitamin D2)) 50,000 Unit Capsule 50,000 Unit PO WEEKLY 30 Days [Pantoprazole] 40 MG Tablet.dr 40 Mg PO BIDAC 30 Days Lantus Solostar (Insulin Glargine,Hum.rec.anlog) 100 Unit/1 Ml Insuln.pen 5 Units SQ QHS 30 Days Carvedilol 3.125 Mg Tablet 6.25 Mg PO BIDWMEALS 30 Days Tramadol Hcl 50 Mg Tablet 1 Tab PO PRN Q6HRS PRN Trazodone Hcl 50 Mg Tablet 50 Mg PO PRN QHS PRN 30 Days Sertraline Hcl 25 Mg Tablet 25 Mg PO DAILY 30 Days Reported Hydralazine Hcl 50 Mg Tablet 50 Mg PO BID Lipitor (Atorvastatin Calcium) 20 Mg Tablet 20 Mg PO HS Plavix (Clopidogrel Bisulfate) 75 Mg Tablet 75 Mg PO DAILY Aspirin 81 Mg Tab.chew 81 Mg PO DAILY Synthroid (Levothyroxine Sodium) 75 Mcg Tablet 75 Mcg PO DAILYAC Renvela (Sevelamer Carbonate) 800 Mg Tablet 800 Mg PO TIDAC Nephro-Manuel Tablet (Folic Acid/Vitamin B Comp W-C) 0.8 Mg Tablet 0.8 Mg PO DAILY Lasix (Furosemide) 40 Mg Tablet 40 Mg PO DAILY Vitals/I & O Vital Sign - Last 24 Hours 02/01/18 02/01/18 02/01/18 02/01/18 11:30 12:00 15:31 16:00 Temp 98.1 98.1 Pulse 78 74 77 Resp 18 18 16 B/P (MAP) 173/81 (111) 177/77 (110) 162/77 (105) Pulse Ox 99 100 96 O2 Delivery Room Air Room Air Room Air Room Air 02/01/18 02/01/18 02/01/18 02/01/18 19:00 21:00 22:19 23:00 Temp 98.2 97.7 98.2 97.7 Pulse 70 70 76 Resp 21 18 B/P (MAP) 149/63 (91) 149/63 148/57 (87) Pulse Ox 99 98 O2 Delivery Room Air Room Air Room Air 02/02/18 02/02/18 02/02/18 02/02/18 03:00 07:20 08:00 08:23 Temp 98.4 97.7 98.4 97.7 Pulse 68 67 67 Resp 18 20 B/P (MAP) 117/52 (73) 138/61 (86) 138/61 Pulse Ox 94 99 O2 Delivery Room Air Intake and Output 02/01/18 02/01/18 02/02/18 15:00 23:00 07:00 Intake Total 120 ml Output Total 0 ml Balance 120 ml 0 ml MARYCHUY SINGH MD Feb 02, 2018 11:26
[2018-02-02] MEDS ORDERED: IV NORMAL SALINE 1000ML BAG 1,000 ML IV PRN ×2 (12:41)
[2018-02-02] MEDS ORDERED: DIALYSIS PATIENT. MC PRN (12:45)
[2018-02-02] MEDS ORDERED: diphenhydrAMINE 50 MG/ML VIAL IV PRN ×2 (12:45)
--- NOTE | 2018-02-02 13:07 | CONS ---
DATE OF CONSULTATION: REASON FOR CONSULTATION: Renal failure. HISTORY OF PRESENT ILLNESS: This is an 82-year-old female well known to this physician with history of end-stage renal disease in the setting of diabetic nephropathy. She undergoes dialysis Sunday, , Sunday under direction of this physician at [facility]. The patient currently admitted with increasing shortness of breath and found to have fluid overload. She underwent extra dialysis yesterday and will be on for dialysis today. PAST MEDICAL HISTORY: Diabetes mellitus, hypertension, breast cancer, congestive cardiomyopathy, CVA, hyperlipidemia, TIA, cholecystectomy, hysterectomy, right upper extremity graft, bilateral mastectomy, thyroidectomy, hernia repair, degenerative arthritis, GE reflux disease. ALLERGIES: ADHESIVE TAPE AND MORPHINE. MEDICATIONS: Per med list and reviewed. FAMILY HISTORY: Noncontributory for renal disease. SOCIAL HISTORY: The patient resides independently. She is . REVIEW OF SYSTEMS: No headache, sinus problem, nasal drainage, epistaxis, change in vision or hearing. No difficulty swallowing. No fever, chills, cough, sputum production, or hemoptysis. No chest pain, shortness of breath, PND, orthopnea, dyspnea on exertion. No abdominal pain. No nausea, vomiting, diarrhea, seizures. She has history of breast cancer. PHYSICAL EXAMINATION: GENERAL: The patient is awake, conversant, appropriate. HEENT: Clear. NECK: No increased JVD. No thyromegaly, masses or adenopathy. LUNGS: Clear. CARDIAC: Without S3 or rub. ABDOMEN: Soft, nontender, no bruits. EXTREMITIES: No edema. NEUROLOGIC: Nonfocal, localizing. PSYCHIATRIC: Good attention to detail, appropriate affect. LABORATORY DATA: Hemoglobin 12, hematocrit 39%, creatinine 4.2, potassium 3.7. IMPRESSION: 1. End-stage renal disease secondary to diabetic nephropathy. 2. Fluid overload. RECOMMENDATIONS: Proceed with dialysis today per routine schedule. The patient has had weight loss and will need to continue to challenge for new dry weight. NIKKI DECKER MD DR: SHONNA/pradip JOB#: [id number] / [id number]
[2018-02-02 15:00] VITALS: BP 147/63
[2018-02-02] MEDS: SEVELAMER CARBONATE 800 MG TABLET. PO SCH (17:00)
[2018-02-02 19:00] VITALS: BP 136/58
[2018-02-02] MEDS ORDERED: INSULIN GLARGINE 300 UNITS/3 ML INSULN.PEN. SQ SCH (21:00)
[2018-02-02] MEDS: ATORVASTATIN CALCIUM 20 MG TABLET PO SCH (21:52)
[2018-02-02] MEDS: SUCRALFATE 1 GM TABLET. PO SCH (21:53)
[2018-02-02] MEDS: traZODone 50 MG TABLET. PO PRN (21:54)
[2018-02-02 22:44] VITALS: BP 166/56
[2018-02-03 03:00] VITALS: BP 140/60
[2018-02-03 07:00] VITALS: BP 135/59
[2018-02-03 07:01] LABS: ALBUMIN 3.2 g/dL (3.4-5.0); CALCIUM 8.1 mg/dL (8.5-10.1); CREATININE 3.2 mg/dL (0.6-1.0); GFR 16.8; POTASSIUM 3.8 mmol/L (3.5-5.1)
[2018-02-03] MEDS: LEVOTHYROXINE 75 MCG TABLET PO SCH (07:13)
[2018-02-03] MEDS: PANTOPRAZOLE 40 MG TABLET.DR. PO SCH ×2 (07:13→16:07)
[2018-02-03] MEDS: SEVELAMER CARBONATE 800 MG TABLET. PO SCH ×3 (08:25→17:08)
[2018-02-03] MEDS: SUCRALFATE 1 GM TABLET. PO SCH ×3 (08:26→21:02)
[2018-02-03] MEDS: CARVEDILOL 6.25 MG TABLET. PO SCH ×2 (08:26→17:09)
[2018-02-03] MEDS: FOLIC/VIT B COMP W-C (RENAL) TABLET. PO SCH (08:26)
[2018-02-03] MEDS: FUROSEMIDE 40 MG TABLET. PO SCH (08:27)
[2018-02-03] MEDS: CLOPIDOGREL BISULFATE 75 MG TABLET PO SCH (08:27)
[2018-02-03] MEDS: SERTRALINE 25 MG TABLET. PO SCH (08:27)
[2018-02-03] MEDS: ASPIRIN CHEWABLE 81 MG TABLET. PO SCH (08:27)
[2018-02-03 11:00] VITALS: BP 137/58
--- NOTE | 2018-02-03 11:43 | PDOC ---
PROGRESS NOTES Chief Complaint Chief Complaint 1. Acute on chronic systolic/diastolic dysfunction: likely induced by uncontrolled HTN 2. 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 EF 25% 10/2017. NYHA 2 3. ESRD: dialysis done yesterday 4. HTN: labile episodes noted during dialysis as well. 5. DM2/HLP 6. CAD: CP free. EKG SR without acute changes by comparison. PCI/BMS to RCA 2016 History of Present Illness History of Present Illness she has no complaints,better S OA Just requests podiatry to cut her nails But blood sugars are running high, mid 200s, just on Levemir 5 units daily at bedtime with unknown hemoglobin A1c She does not want to discharge soon because the last time she says she just ended up back in the emergency room Plan: Social work might need home health, she seems not agreeable to SNU Start glyburide 5 by mouth twice a day-I do not see any chondral indications for starting this OHA Increase Levemir from 5 to15 units daily at bedtime Dialysis per renal-days are Sunday Podiatry consult for toenail clipping PT OT Supportive meds Check hemoglobin A1c [facility]ybe HH on dc Vitals Vitals Vital Signs Date Time Temp Pulse Resp B/P (MAP) Pulse Ox O2 Delivery O2 Flow Rate FiO2 02/03/18 08:26 70 135/59 02/03/18 08:00 Room Air 02/03/18 07:00 98.1 18 99 98.1 Physical Exam General: Alert, Oriented X3, Cooperative, mild distress Heart: Regular rate, Normal S1, Normal S2 Abdomen: Normal bowel sounds Extremities: No clubbing, No cyanosis, Other (1-2+ bilateral LE pitting edema) Skin: No breakdown, No significant lesion Labs LABS Laboratory Tests Test 02/02/18 15:02 02/02/18 16:45 02/02/18 20:42 02/03/18 04:47 Glucose (Fingerstick) 73 mg/dL (70-99) 171 mg/dL (70-99) 297 mg/dL (70-99) Sodium Level 136 mmol/L (136-145) Potassium Level 3.8 mmol/L (3.5-5.1) Chloride Level 99 mmol/L (98-107) Carbon Dioxide Level 29 mmol/L (21-32) Anion Gap 8 (6-14) Blood Urea Nitrogen 18 mg/dL (7-20) Creatinine 3.2 mg/dL (0.6-1.0) Estimated GFR (Cockcroft-Gault) 16.8 Glucose Level 296 mg/dL (70-99) Calcium Level 8.1 mg/dL (8.5-10.1) Phosphorus Level 2.0 mg/dL (2.6-4.7) Albumin 3.2 g/dL (3.4-5.0) Test 02/03/18 07:33 Glucose (Fingerstick) 256 mg/dL (70-99) Review of Systems Review of Systems A 14 point ROS was completed with the following noted as positive: Other systems reviewed and negative. \CONSTITUTIONAL: No fever or chills EYES: No recent changes SKIN: No rash or itching CARDIOVASCULAR: No chest pain, syncope, palpitations, or edema RESPIRATORY: No SOB or cough GASTROINTESTINAL: No nausea, vomiting or abdominal pain NEUROLOGICAL: No headaches or weakness ENDOCRINE: No cold or heat intolerance GENITOURINARY: No urgency or frequency of urination MUSCULOSKELETAL: No back pain or joint pain LYMPHATICS: No enlarged lymph nodes PSYCHIATRIC: No anxiety or depression Assessment and Plan Assessmemt and Plan Problems Medical Problems: (1) Dyspnea Status: Acute (2) ESRD (end stage renal disease) on dialysis Status: Acute (3) HTN (hypertension) Status: Acute Comment Review of Relevant I have reviewed the following items qing (where applicable) has been applied. Labs Laboratory Tests Test 02/01/18 21:42 02/02/18 07:32 02/02/18 15:02 02/02/18 16:45 Glucose (Fingerstick) 87 mg/dL (70-99) 118 mg/dL (70-99) 73 mg/dL (70-99) 171 mg/dL (70-99) Test 02/02/18 20:42 02/03/18 04:47 02/03/18 07:33 Glucose (Fingerstick) 297 mg/dL (70-99) 256 mg/dL (70-99) Sodium Level 136 mmol/L (136-145) Potassium Level 3.8 mmol/L (3.5-5.1) Chloride Level 99 mmol/L (98-107) Carbon Dioxide Level 29 mmol/L (21-32) Anion Gap 8 (6-14) Blood Urea Nitrogen 18 mg/dL (7-20) Creatinine 3.2 mg/dL (0.6-1.0) Estimated GFR (Cockcroft-Gault) 16.8 Glucose Level 296 mg/dL (70-99) Calcium Level 8.1 mg/dL (8.5-10.1) Phosphorus Level 2.0 mg/dL (2.6-4.7) Albumin 3.2 g/dL (3.4-5.0) Laboratory Tests Test 02/02/18 15:02 02/02/18 16:45 02/02/18 20:42 02/03/18 04:47 Glucose (Fingerstick) 73 mg/dL (70-99) 171 mg/dL (70-99) 297 mg/dL (70-99) Sodium Level 136 mmol/L (136-145) Potassium Level 3.8 mmol/L (3.5-5.1) Chloride Level 99 mmol/L (98-107) Carbon Dioxide Level 29 mmol/L (21-32) Anion Gap 8 (6-14) Blood Urea Nitrogen 18 mg/dL (7-20) Creatinine 3.2 mg/dL (0.6-1.0) Estimated GFR (Cockcroft-Gault) 16.8 Glucose Level 296 mg/dL (70-99) Calcium Level 8.1 mg/dL (8.5-10.1) Phosphorus Level 2.0 mg/dL (2.6-4.7) Albumin 3.2 g/dL (3.4-5.0) Test 02/03/18 07:33 Glucose (Fingerstick) 256 mg/dL (70-99) Medications Current Medications Aspirin (Children'S Aspirin) 81 mg DAILY PO Last administered on 02/03/18at 08: 27; Start 02/02/18 at 09:00 Atorvastatin Calcium (Lipitor) 20 mg HS PO Last administered on 02/02/18at 21:52 ; Start 02/01/18 at 21:00 Carvedilol (Coreg) 6.25 mg BIDWMEALS PO Last administered on 02/03/18at 08:26; Start 02/01/18 at 17:00 Clopidogrel Bisulfate (Plavix) 75 mg DAILY PO Last administered on 02/03/18at 08 :27; Start 02/02/18 at 09:00 Labetalol HCl (Normodyne Iv Push) 10 mg 1X ONCE IVP ; Start 02/01/18 at 16:00; Stop 02/01/18 at 16:07; Status DC Labetalol HCl (Normodyne Iv Push) 20 mg PRN Q2HR PRN IVP HYPERTENSION, SEE COMMENTS; Start 02/01/18 at 16:00 Sodium Chloride 1,000 ml @ 1,000 mls/hr Q1H PRN IV hypotension; Start 02/01/18 at 16:42; Stop 02/01/18 at 22:41; Status DC Sodium Chloride 1,000 ml @ 400 mls/hr Q2H30M PRN IV PATENCY; Start 02/01/18 at 16:42; Stop 02/02/18 at 04:41; Status DC Info (PHARMACY MONITORING -- do not chart) 1 each PRN DAILY PRN MC SEE COMMENTS ; Start 02/01/18 at 16:45; Stop 02/02/18 at 12:50; Status DC Info (PHARMACY MONITORING -- do not chart) 1 each PRN DAILY PRN MC SEE COMMENTS ; Start 02/01/18 at 16:45; Status UNV Diphenhydramine HCl (Benadryl) 25 mg 1X ONCE IVP Last administered on at 20:12; Start 02/01/18 at 20:15; Stop 02/01/18 at 20:16; Status DC Diphenhydramine HCl (Benadryl) 25 mg PRN Q6HRS PRN PO ITCHING Last administered on 02/02/18at 08:23; Start 02/01/18 at 22:15 Levothyroxine Sodium (Synthroid) 75 mcg DAILYAC PO Last administered on at 07:13; Start 02/02/18 at 07:30 Tramadol HCl (Ultram) 50 mg PRN Q6HRS PRN PO MODERATE PAIN; Start 02/01/18 at 22:15 Trazodone HCl (Desyrel) 50 mg PRN QHS PRN PO INSOMNIA 1ST CHOICE Last administered on 02/02/18at 21:54; Start 02/01/18 at 22:15 Sodium Chloride 1,000 ml @ 1,000 mls/hr Q1H PRN IV hypotension; Start 02/02/18 at 12:41; Stop 02/02/18 at 18:40; Status DC Diphenhydramine HCl (Benadryl) 25 mg 1X PRN PRN IV ITCHING; Start 02/02/18 at 12:45; Stop 02/03/18 at 12:44 Diphenhydramine HCl (Benadryl) 25 mg 1X PRN PRN IV ITCHING; Start 02/02/18 at 12:45; Stop 02/03/18 at 12:44 Sodium Chloride 1,000 ml @ 400 mls/hr Q2H30M PRN IV PATENCY; Start 02/02/18 at 12:41; Stop 02/03/18 at 00:40; Status DC Info (PHARMACY MONITORING -- do not chart) 1 each PRN DAILY PRN MC SEE COMMENTS ; Start 02/02/18 at 12:45 Sevelamer Carbonate (Renvela) 800 mg TIDWMEALS PO Last administered on at 08:25; Start 02/02/18 at 17:00 Ergocalciferol (Vitamin D2) 50,000 unit WEEKLY PO ; Start 02/09/18 at 09:00 Vitamin B Complex/ Vitamin C (Johana-Manuel) 1 tab DAILY PO Last administered on at 08:26; Start 02/03/18 at 09:00 Furosemide (Lasix) 40 mg DAILY PO Last administered on 02/03/18at 08:27; Start 02/03/18 at 09:00 Insulin Glargine (Lantus) 5 units QHS SQ Last administered on 02/02/18at 22:06; Start 02/02/18 at 21:00 Hydralazine HCl (Apresoline) 50 mg BID PO Last administered on 02/02/18at 21:53 ; Start 02/02/18 at 21:00 Sertraline HCl (Zoloft) 25 mg DAILY PO Last administered on 02/03/18at 08:27; Start 02/03/18 at 09:00 Sucralfate (Carafate) 1 gm TID@1000,1500,2200 PO Last administered on at 08:26; Start 02/02/18 at 22:00 Pantoprazole Sodium (Protonix) 40 mg BIDAC PO Last administered on 02/03/18at 07 :13; Start 02/03/18 at 07:30 Active Scripts Active Carafate (Sucralfate) 1 Gm Tablet 1 Gm PO TIDAC 30 Days Vitamin D2 (Ergocalciferol (Vitamin D2)) 50,000 Unit Capsule 50,000 Unit PO WEEKLY 30 Days [Pantoprazole] 40 MG Tablet.dr 40 Mg PO BIDAC 30 Days Lantus Solostar (Insulin Glargine,Hum.rec.anlog) 100 Unit/1 Ml Insuln.pen 5 Units SQ QHS 30 Days Carvedilol 3.125 Mg Tablet 6.25 Mg PO BIDWMEALS 30 Days Tramadol Hcl 50 Mg Tablet 1 Tab PO PRN Q6HRS PRN Trazodone Hcl 50 Mg Tablet 50 Mg PO PRN QHS PRN 30 Days Sertraline Hcl 25 Mg Tablet 25 Mg PO DAILY 30 Days Reported Hydralazine Hcl 50 Mg Tablet 50 Mg PO BID Lipitor (Atorvastatin Calcium) 20 Mg Tablet 20 Mg PO HS Plavix (Clopidogrel Bisulfate) 75 Mg Tablet 75 Mg PO DAILY Aspirin 81 Mg Tab.chew 81 Mg PO DAILY Synthroid (Levothyroxine Sodium) 75 Mcg Tablet 75 Mcg PO DAILYAC Renvela (Sevelamer Carbonate) 800 Mg Tablet 800 Mg PO TIDAC Nephro-Manuel Tablet (Folic Acid/Vitamin B Comp W-C) 0.8 Mg Tablet 0.8 Mg PO DAILY Lasix (Furosemide) 40 Mg Tablet 40 Mg PO DAILY Vitals/I & O Vital Sign - Last 24 Hours 02/02/18 02/02/18 02/02/18 02/02/18 15:00 16:59 19:00 20:00 Temp 97.7 98.4 97.7 98.4 Pulse 69 69 72 Resp 18 18 B/P (MAP) 147/63 (91) 147/63 136/58 (84) Pulse Ox 99 96 O2 Delivery Room Air Room Air 02/02/18 02/02/18 02/03/18 02/03/18 21:53 22:44 03:00 07:00 Temp 98.1 98.1 98.1 98.1 Pulse 72 69 76 70 Resp 19 18 18 B/P (MAP) 136/58 166/56 (92) 140/60 (86) 135/59 (84) Pulse Ox 99 95 99 O2 Delivery Room Air Room Air Room Air 02/03/18 02/03/18 08:00 08:26 Pulse 70 B/P (MAP) 135/59 O2 Delivery Room Air Intake and Output 02/02/18 02/02/18 02/03/18 15:00 23:00 07:00 Intake Total 240 ml 550 ml Balance 240 ml 550 ml MARYCHUY SINGH MD Feb 03, 2018 11:43
[2018-02-03] MEDS ORDERED: DEXTROSE 50% 25 GM / 50ML DISP.SYRIN. IV PRN (11:45)
[2018-02-03] MEDS: glyBURIDE 5 MG TABLET PO SCH ×2 (12:00→17:08)
[2018-02-03] MEDS: INSULIN LISPRO 300 UNITS/3 ML INSULN.PEN. SQ SCH ×2 (12:03→17:00)
--- NOTE | 2018-02-03 12:43 | PDOC ---
PROGRESS NOTES Subjective Subjective Patient seen and examined Objective Objective Vital Signs Date Time Temp Pulse Resp B/P (MAP) Pulse Ox O2 Delivery O2 Flow Rate FiO2 02/03/18 11:00 97.8 68 18 137/58 (84) 99 Room Air 97.8 Intake and Output 02/03/18 07:00 Intake Total 790 ml Balance 790 ml Intake Oral 790 ml # Voids 8 Physical Exam Abdomen: Normal bowel sounds Heart: Regular rate General: No acute distress Lungs: Other (slightly decreased breath sounds) Assessment Assessment Problems Medical Problems: (1) Dyspnea Status: Acute (2) ESRD (end stage renal disease) on dialysis Status: Acute (3) HTN (hypertension) Status: Acute 1. Acute on chronic systolic/diastolic dysfunction: The patient is improved on present medications. She denies any chest discomfort. Updated echocardiogram pending. 2. 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 EF 25% 10/2017. NYHA 2. Clinically improving. Discuss possible AICD. 3. ESRD: dialysis as per renal.done 4. HTN: labile episodes. Improved this morning. 5. DM2/HLP 6. CAD: CP free. EKG SR without acute changes by comparison. PCI/BMS to RCA 2016. Continue present treatment. Comment Review of Relevant I have reviewed the following items qing (where applicable) has been applied. Labs Laboratory Tests Test 02/01/18 21:42 02/02/18 07:32 02/02/18 15:02 02/02/18 16:45 Glucose (Fingerstick) 87 mg/dL (70-99) 118 mg/dL (70-99) 73 mg/dL (70-99) 171 mg/dL (70-99) Test 02/02/18 20:42 02/03/18 04:47 02/03/18 07:33 02/03/18 11:41 Glucose (Fingerstick) 297 mg/dL (70-99) 256 mg/dL (70-99) 327 mg/dL (70-99) Sodium Level 136 mmol/L (136-145) Potassium Level 3.8 mmol/L (3.5-5.1) Chloride Level 99 mmol/L (98-107) Carbon Dioxide Level 29 mmol/L (21-32) Anion Gap 8 (6-14) Blood Urea Nitrogen 18 mg/dL (7-20) Creatinine 3.2 mg/dL (0.6-1.0) Estimated GFR (Cockcroft-Gault) 16.8 Glucose Level 296 mg/dL (70-99) Calcium Level 8.1 mg/dL (8.5-10.1) Phosphorus Level 2.0 mg/dL (2.6-4.7) Albumin 3.2 g/dL (3.4-5.0) Laboratory Tests Test 02/02/18 15:02 02/02/18 16:45 02/02/18 20:42 02/03/18 04:47 Glucose (Fingerstick) 73 mg/dL (70-99) 171 mg/dL (70-99) 297 mg/dL (70-99) Sodium Level 136 mmol/L (136-145) Potassium Level 3.8 mmol/L (3.5-5.1) Chloride Level 99 mmol/L (98-107) Carbon Dioxide Level 29 mmol/L (21-32) Anion Gap 8 (6-14) Blood Urea Nitrogen 18 mg/dL (7-20) Creatinine 3.2 mg/dL (0.6-1.0) Estimated GFR (Cockcroft-Gault) 16.8 Glucose Level 296 mg/dL (70-99) Calcium Level 8.1 mg/dL (8.5-10.1) Phosphorus Level 2.0 mg/dL (2.6-4.7) Albumin 3.2 g/dL (3.4-5.0) Test 02/03/18 07:33 02/03/18 11:41 Glucose (Fingerstick) 256 mg/dL (70-99) 327 mg/dL (70-99) Medications Current Medications Aspirin (Children'S Aspirin) 81 mg DAILY PO Last administered on 02/03/18at 08: 27; Start 02/02/18 at 09:00 Atorvastatin Calcium (Lipitor) 20 mg HS PO Last administered on 02/02/18at 21:52 ; Start 02/01/18 at 21:00 Carvedilol (Coreg) 6.25 mg BIDWMEALS PO Last administered on 02/03/18at 08:26; Start 02/01/18 at 17:00 Clopidogrel Bisulfate (Plavix) 75 mg DAILY PO Last administered on 02/03/18at 08 :27; Start 02/02/18 at 09:00 Labetalol HCl (Normodyne Iv Push) 10 mg 1X ONCE IVP ; Start 02/01/18 at 16:00; Stop 02/01/18 at 16:07; Status DC Labetalol HCl (Normodyne Iv Push) 20 mg PRN Q2HR PRN IVP HYPERTENSION, SEE COMMENTS; Start 02/01/18 at 16:00 Sodium Chloride 1,000 ml @ 1,000 mls/hr Q1H PRN IV hypotension; Start 02/01/18 at 16:42; Stop 02/01/18 at 22:41; Status DC Sodium Chloride 1,000 ml @ 400 mls/hr Q2H30M PRN IV PATENCY; Start 02/01/18 at 16:42; Stop 02/02/18 at 04:41; Status DC Info (PHARMACY MONITORING -- do not chart) 1 each PRN DAILY PRN MC SEE COMMENTS ; Start 02/01/18 at 16:45; Stop 02/02/18 at 12:50; Status DC Info (PHARMACY MONITORING -- do not chart) 1 each PRN DAILY PRN MC SEE COMMENTS ; Start 02/01/18 at 16:45; Status UNV Diphenhydramine HCl (Benadryl) 25 mg 1X ONCE IVP Last administered on at 20:12; Start 02/01/18 at 20:15; Stop 02/01/18 at 20:16; Status DC Diphenhydramine HCl (Benadryl) 25 mg PRN Q6HRS PRN PO ITCHING Last administered on 02/02/18at 08:23; Start 02/01/18 at 22:15 Levothyroxine Sodium (Synthroid) 75 mcg DAILYAC PO Last administered on at 07:13; Start 02/02/18 at 07:30 Tramadol HCl (Ultram) 50 mg PRN Q6HRS PRN PO MODERATE PAIN; Start 02/01/18 at 22:15 Trazodone HCl (Desyrel) 50 mg PRN QHS PRN PO INSOMNIA 1ST CHOICE Last administered on 02/02/18at 21:54; Start 02/01/18 at 22:15 Sodium Chloride 1,000 ml @ 1,000 mls/hr Q1H PRN IV hypotension; Start 02/02/18 at 12:41; Stop 02/02/18 at 18:40; Status DC Diphenhydramine HCl (Benadryl) 25 mg 1X PRN PRN IV ITCHING; Start 02/02/18 at 12:45; Stop 02/03/18 at 12:44 Diphenhydramine HCl (Benadryl) 25 mg 1X PRN PRN IV ITCHING; Start 02/02/18 at 12:45; Stop 02/03/18 at 12:44 Sodium Chloride 1,000 ml @ 400 mls/hr Q2H30M PRN IV PATENCY; Start 02/02/18 at 12:41; Stop 02/03/18 at 00:40; Status DC Info (PHARMACY MONITORING -- do not chart) 1 each PRN DAILY PRN MC SEE COMMENTS ; Start 02/02/18 at 12:45 Sevelamer Carbonate (Renvela) 800 mg TIDWMEALS PO Last administered on at 12:00; Start 02/02/18 at 17:00 Ergocalciferol (Vitamin D2) 50,000 unit WEEKLY PO ; Start 02/09/18 at 09:00 Vitamin B Complex/ Vitamin C (Johaan-Manuel) 1 tab DAILY PO Last administered on at 08:26; Start 02/03/18 at 09:00 Furosemide (Lasix) 40 mg DAILY PO Last administered on 02/03/18at 08:27; Start 02/03/18 at 09:00 Insulin Glargine (Lantus) 5 units QHS SQ Last administered on 02/02/18at 22:06; Start 02/02/18 at 21:00; Stop 02/03/18 at 11:42; Status DC Hydralazine HCl (Apresoline) 50 mg BID PO Last administered on 02/02/18at 21:53 ; Start 02/02/18 at 21:00 Sertraline HCl (Zoloft) 25 mg DAILY PO Last administered on 02/03/18at 08:27; Start 02/03/18 at 09:00 Sucralfate (Carafate) 1 gm TID@1000,1500,2200 PO Last administered on at 08:26; Start 02/02/18 at 22:00 Pantoprazole Sodium (Protonix) 40 mg BIDAC PO Last administered on 02/03/18at 07 :13; Start 02/03/18 at 07:30 Insulin Glargine (Lantus) 15 units QHS SQ ; Start 02/03/18 at 21:00 Glyburide (Diabeta) 5 mg BIDWMEALS PO Last administered on 02/03/18at 12:00; Start 02/03/18 at 12:00 Insulin Human Lispro (HumaLOG) 0-9 UNITS TIDWMEALS SQ Last administered on 02/03at 12:03; Start 02/03/18 at 12:00 Dextrose (Dextrose 50%-Water Syringe) 12.5 gm PRN Q15MIN PRN IV SEE COMMENTS; Start 02/03/18 at 11:45 Active Scripts Active Carafate (Sucralfate) 1 Gm Tablet 1 Gm PO TIDAC 30 Days Vitamin D2 (Ergocalciferol (Vitamin D2)) 50,000 Unit Capsule 50,000 Unit PO WEEKLY 30 Days [Pantoprazole] 40 MG Tablet.dr 40 Mg PO BIDAC 30 Days Lantus Solostar (Insulin Glargine,Hum.rec.anlog) 100 Unit/1 Ml Insuln.pen 5 Units SQ QHS 30 Days Carvedilol 3.125 Mg Tablet 6.25 Mg PO BIDWMEALS 30 Days Tramadol Hcl 50 Mg Tablet 1 Tab PO PRN Q6HRS PRN Trazodone Hcl 50 Mg Tablet 50 Mg PO PRN QHS PRN 30 Days Sertraline Hcl 25 Mg Tablet 25 Mg PO DAILY 30 Days Reported Hydralazine Hcl 50 Mg Tablet 50 Mg PO BID Lipitor (Atorvastatin Calcium) 20 Mg Tablet 20 Mg PO HS Plavix (Clopidogrel Bisulfate) 75 Mg Tablet 75 Mg PO DAILY Aspirin 81 Mg Tab.chew 81 Mg PO DAILY Synthroid (Levothyroxine Sodium) 75 Mcg Tablet 75 Mcg PO DAILYAC Renvela (Sevelamer Carbonate) 800 Mg Tablet 800 Mg PO TIDAC Nephro-Manuel Tablet (Folic Acid/Vitamin B Comp W-C) 0.8 Mg Tablet 0.8 Mg PO DAILY Lasix (Furosemide) 40 Mg Tablet 40 Mg PO DAILY Vitals/I & O Vital Sign - Last 24 Hours 02/02/18 02/02/18 02/02/18 02/02/18 15:00 16:59 19:00 20:00 Temp 97.7 98.4 97.7 98.4 Pulse 69 69 72 Resp 18 18 B/P (MAP) 147/63 (91) 147/63 136/58 (84) Pulse Ox 99 96 O2 Delivery Room Air Room Air 02/02/18 02/02/18 02/03/18 02/03/18 21:53 22:44 03:00 07:00 Temp 98.1 98.1 98.1 98.1 Pulse 72 69 76 70 Resp 19 18 18 B/P (MAP) 136/58 166/56 (92) 140/60 (86) 135/59 (84) Pulse Ox 99 95 99 O2 Delivery Room Air Room Air Room Air 02/03/18 02/03/18 02/03/18 08:00 08:26 11:00 Temp 97.8 97.8 Pulse 70 68 Resp 18 B/P (MAP) 135/59 137/58 (84) Pulse Ox 99 O2 Delivery Room Air Room Air Intake and Output 02/02/18 02/02/18 02/03/18 15:00 23:00 07:00 Intake Total 240 ml 550 ml Balance 240 ml 550 ml BRIDEGTT SALINAS MD Feb 03, 2018 12:43
--- NOTE | 2018-02-03 12:56 | CARD ---
MR#: [id number] Date of Study: 02/03/2018 Ordering Physician: VEDA SPRING, Referring Physician: ANGELICA ROSSI Tech: Josefa Bernal RDCS APPROVED REPORT EXAM: Two-dimensional and M-mode echocardiogram with Doppler and color Doppler. Other Information Quality : GoodHR: 67bpm INDICATION Cardiomyopathy Congestive Heart Failure 2D DIMENSIONS IVSd1.1 (0.7-1.1cm)LVDd5.2 (3.9-5.9cm) PWd1.0 (0.7-1.1cm)LVDs4.4 (2.5-4.0cm) FS (%) 15.0 %SV41.1 ml LVEF(%)31.5 (>50%) LEFT VENTRICLE Limited study for LV function. The Left Ventricle is borderline dilated. There is borderline concentr ic left ventricular hypertrophy. The systolic function is moderately impaired. LV ejection fraction i s 30-35%. There is global hypokinesis of the left ventricle. PERICARDIAL EFFUSION There is no evidence of significant pericardial effusion. Critical Notification Critical Value: No <Conclusion> Limited study for LV function. The Left Ventricle is borderline dilated. The systolic function is moderately impaired. LV ejection fraction is 30-35%. There is global hypokinesis of the left ventricle. There is no evidence of significant pericardial effusion. Signed by : Carlos Tovar MD Electronically Approved : 02/03/2018 12:55:33
[2018-02-03 15:00] VITALS: BP 140/58
[2018-02-03] MEDS: diphenhydrAMINE HCL 25 MG CAPSULE PO PRN (16:07)
[2018-02-03 19:00] VITALS: BP 121/57
[2018-02-03] MEDS ORDERED: INSULIN GLARGINE 300 UNITS/3 ML INSULN.PEN. SQ SCH (21:00)
[2018-02-03] MEDS: traZODone 50 MG TABLET. PO PRN (21:02)
[2018-02-03] MEDS: ATORVASTATIN CALCIUM 20 MG TABLET PO SCH (21:02)
[2018-02-03 23:00] VITALS: BP 115/61
--- NOTE | 2018-02-03 23:09 | CONS ---
DATE OF CONSULTATION: 02/03/2018 REVIEW OF RECORD HISTORY OF PRESENT ILLNESS: The patient is an 82-year-old female that has been seen in my office in the past, but it has been over a year since she was seen. She has been in rehabilitation she states and has not been able to get to the office. She presented to the ER with shortness of breath. She is dialysis dependent. She is admitted for management of her dialysis issues. PAST MEDICAL HISTORY: Breast cancer; congestive heart failure; stroke, diabetes; hypertension; hyperlipidemia; chronic renal failure, on dialysis; TIA; cholecystectomy; hysterectomy; right upper extremity graft; bilateral mastectomy; thyroidectomy; hernia repair; chronic pain; arthritis; depression; anxiety; insomnia and GERD. ALLERGIES: TAPE AND MORPHINE. FAMILY HISTORY: Hypertension. SOCIAL HISTORY: Denies drinking, smoking or recreational drugs and lives alone. PHYSICAL EXAMINATION: DERMAL: The patient has elongated mycotic nails that are dystrophic and thickened with a year's growth 2 through 5. She had absence of great toenails from previous amputation, i.e., distal Syme procedures having been done years ago. Absence of hair growth. Decreased turgor. VASCULAR: Pedal pulses are diminished, +1/4. Skin temperature is slightly cooler. NEUROLOGIC: The patient has normal sensorium, relates no numbness, burning, tingling at this time. MUSCULOSKELETAL: Noncontributory. Distal Syme procedures of great toes. ASSESSMENT: 1. Clinical evidence of painful onychomycosis, onychocryptosis, onycholysis of all nails present, i.e. x 8. 2. History of diabetes with diminished vascularity and amputation of distal great toes, Q7. PLAN: Debridement of all mycotic nails performed using double action nail forceps and rotary drill. No hemorrhage occurred. The patient will hopefully be seen. Continue follow up for diabetic foot care in the office on a more regular basis as she has been seen in the past. Thank you very much, Dr. Arango for the opportunity to take care of this patient during her admission at [facility] [place] [place] [facility] DPM DR: SILVANO/pradip JOB#: [id number] / [id number]
[2018-02-04 00:12] LABS: HEMOGLOBIN A1C 6.4 % (4.8-5.6)
[2018-02-04 03:00] VITALS: BP 126/67
[2018-02-04 07:00] VITALS: BP 141/57
[2018-02-04] MEDS: PANTOPRAZOLE 40 MG TABLET.DR. PO SCH ×2 (07:40→16:41)
[2018-02-04] MEDS: LEVOTHYROXINE 75 MCG TABLET PO SCH (07:40)
[2018-02-04] MEDS ORDERED: TRAZ-85 PO (07:49)
[2018-02-04] MEDS: glyBURIDE 5 MG TABLET PO SCH ×2 (08:10→17:03)
[2018-02-04] MEDS: SEVELAMER CARBONATE 800 MG TABLET. PO SCH ×3 (08:10→17:03)
[2018-02-04] MEDS: CARVEDILOL 6.25 MG TABLET. PO SCH ×2 (08:11→17:04)
[2018-02-04] MEDS: INSULIN LISPRO 300 UNITS/3 ML INSULN.PEN. SQ SCH ×3 (08:13→17:06)
[2018-02-04 09:03] LABS: HEMATOCRIT 35.9 % (36.0-47.0); HEMOGLOBIN 11.7 g/dL (12.0-15.5)
[2018-02-04] MEDS: FUROSEMIDE 40 MG TABLET. PO SCH (09:15)
[2018-02-04] MEDS: FOLIC/VIT B COMP W-C (RENAL) TABLET. PO SCH (09:15)
[2018-02-04] MEDS: CLOPIDOGREL BISULFATE 75 MG TABLET PO SCH (09:15)
[2018-02-04] MEDS: SERTRALINE 25 MG TABLET. PO SCH (09:15)
[2018-02-04] MEDS: ASPIRIN CHEWABLE 81 MG TABLET. PO SCH (09:17)
--- NOTE | 2018-02-04 09:17 | PDOC3 ---
Discharge Summary Visit Information Date of Admission: Feb 01, 2018 Date of Discharge: Feb 04, 2018 Admitting Diagnosis Comment: 1. Acute on chronic systolic/diastolic dysfunction: likely induced by uncontrolled HTN 2. 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 EF 25% 10/2017. NYHA 2 3. ESRD: dialysis done yesterday 4. HTN: labile episodes noted during dialysis as well. 5. DM2/HLP 6. CAD: CP free. EKG SR without acute changes by comparison. PCI/BMS to RCA 2016 Final Diagnosis Problems Medical Problems: (1) Dyspnea Status: Acute (2) ESRD (end stage renal disease) on dialysis Status: Acute (3) HTN (hypertension) Status: Acute Brief Hospital Course Allergies Allergies Coded Allergies Type Severity Reaction Last Updated Verified adhesive tape Allergy Intermediate PAPER TAPE 09/27/17 Yes morphine Allergy Mild Itching 12/16/17 Yes Vital Signs Vital Signs Date Time Temp Pulse Resp B/P (MAP) Pulse Ox O2 Delivery O2 Flow Rate FiO2 02/04/18 08:11 66 141/57 02/04/18 07:00 97.9 18 96 Room Air 97.9 Lab Results Laboratory Tests Test 02/02/18 15:02 02/02/18 16:45 02/02/18 20:42 02/03/18 04:47 Glucose (Fingerstick) 73 mg/dL (70-99) 171 mg/dL (70-99) 297 mg/dL (70-99) Sodium Level 136 mmol/L (136-145) Potassium Level 3.8 mmol/L (3.5-5.1) Chloride Level 99 mmol/L (98-107) Carbon Dioxide Level 29 mmol/L (21-32) Anion Gap 8 (6-14) Blood Urea Nitrogen 18 mg/dL (7-20) Creatinine 3.2 mg/dL (0.6-1.0) Estimated GFR (Cockcroft-Gault) 16.8 Glucose Level 296 mg/dL (70-99) Hemoglobin A1c 6.4 % (4.8-5.6) Calcium Level 8.1 mg/dL (8.5-10.1) Phosphorus Level 2.0 mg/dL (2.6-4.7) Albumin 3.2 g/dL (3.4-5.0) Test 02/03/18 07:33 02/03/18 11:41 02/03/18 16:41 02/03/18 20:11 Glucose (Fingerstick) 256 mg/dL (70-99) 327 mg/dL (70-99) 73 mg/dL (70-99) 151 mg/dL (70-99) Test 02/04/18 07:38 02/04/18 07:45 Glucose (Fingerstick) 244 mg/dL (70-99) Hemoglobin 11.7 g/dL (12.0-15.5) Hematocrit 35.9 % (36.0-47.0) Mean Corpuscular Hemoglobin Concent 33 g/dL (31-37) Laboratory Tests Test 02/03/18 11:41 02/03/18 16:41 02/03/18 20:11 02/04/18 07:38 Glucose (Fingerstick) 327 mg/dL (70-99) 73 mg/dL (70-99) 151 mg/dL (70-99) 244 mg/dL (70-99) Test 02/04/18 07:45 Hemoglobin 11.7 g/dL (12.0-15.5) Hematocrit 35.9 % (36.0-47.0) Mean Corpuscular Hemoglobin Concent 33 g/dL (31-37) Brief Hospital Course Ms. Doyle is a 82 old [place] Malaysian female with ESRD on dialysis TTH S schedule, and also CHF, comes in because of hyperkalemia but hemodynamically stable and no symptoms. Hyperkalemia was addressed with dialysis. I do believe they get fluid off. PT recommended home health I have arranged for that. She wants to stay couple days more, discussed with case management - she needs to leave. She might need a cab ride or at least her niece will not be here until past 5 She requests for a UA prior to discharge Meds on chart, no real change in medications Discharge disposition home health Consults performed renal Procedure performed dialysis Time discharging greater > 30 Mins Greater than 50% DC coordination and education discharge etc. [id number] with social insurance analyst, RN, patient, case management Discharge Information Condition at Discharge: Improved, Stable Disposition/Orders: D/C to Home w/ HH Scheduled Aspirin (Aspirin) 81 Mg Tab.chew, 81 MG PO DAILY, (Reported) Entered as Reported by: ALEKSANDRA CLEMENT on 03/05/14 1209 Last Action: Continued on 02/01/18 1606 by VEDA SPRING Atorvastatin Calcium (Lipitor) 20 Mg Tablet, 20 MG PO HS for FOR CHOLESTEROL, # 30 Ref 0 (Reported) Entered as Reported by: Amie Dougherty on 04/06/14 1551 Last Action: Continued on 02/01/18 1606 by VEDA SPRING Carvedilol (Carvedilol) 3.125 Mg Tablet, 6.25 MG PO BIDWMEALS for 30 Days, #120 Ref 6 Prescribed by: BRENDA PABON on 02/17/17 1149 Last Action: Continued on 02/01/18 1606 by VEDA SPRING Clopidogrel Bisulfate (Plavix) 75 Mg Tablet, 75 MG PO DAILY for TO PREVENT BLOOD CLOTS, #30 Ref 0 (Reported) Entered as Reported by: ALEKSANDRA CLEMENT on 03/05/14 1210 Last Action: Continued on 02/01/18 160 by VEDA SPRING Ergocalciferol (Vitamin D2) (Vitamin D2) 50,000 Unit Capsule, 50,000 UNIT PO WEEKLY for 30 Days, #3 Prescribed by: MALCOM HAWKINS MD on 10/27/17 1211 Last Action: Continued on 02/02/181908 by NIAL CASTSANTINO Folic Acid/Vitamin B Comp W-C (Nephro-Manuel Tablet) 0.8 Mg Tablet, 0.8 MG PO DAILY, (Reported) Entered as Reported by: JONEL MARTIN on 11/22/13218 Last Action: Continued on 02/02/181908 by NIAL CASTSANTINO Furosemide (Lasix) 40 Mg Tablet, 40 MG PO DAILY, (Reported) Entered as Reported by: JONEL MARTIN on 11/22/13218 Last Action: Continued on 02/02/181908 by NIAL CASTSANTINO Hydralazine Hcl (Hydralazine Hcl) 50 Mg Tablet, 50 MG PO BID, (Reported) Entered as Reported by: HAKEEM MATHEWS on 02/01/182152 Last Action: Converted on 02/02/181908 by NIAL CASTSANTINO Insulin Glargine,Hum.rec.anlog (Lantus Solostar) 100 Unit/1 Ml Insuln.pen, 5 UNITS SQ QHS for 30 Days, #1 Prescribed by: BRENDA PABON on 10/08/17 1257 Last Action: Continued on 02/02/181908 by ANGELICA ROSSI Levothyroxine Sodium (Synthroid) 75 Mcg Tablet, 75 MCG PO DAILYAC for THYROID SUPPLEMENT, #30 Ref 0 (Reported) Entered as Reported by: Dre Elliott on 11/22/13 0519 Last Action: Continued on 02/01/182203 by HAKEEM MATHEWS Sertraline Hcl (Sertraline Hcl) 25 Mg Tablet, 25 MG PO DAILY for 30 Days, Ref 6 Prescribed by: BRENDA PABON on 12/03/15 0946 Last Action: Converted on 02/02/181908 by ANGELICA ROSSI Sevelamer Carbonate (Renvela) 800 Mg Tablet, 800 MG PO TIDAC, (Reported) Entered as Reported by: JONEL MARTIN on 11/22/13 0219 Last Action: Continued on 02/02/18 163 by SMITA MERCADO Sucralfate (Carafate) 1 Gm Tablet, 1 GM PO TIDAC for 30 Days, #90 Prescribed by: MALCOM HAWKINS MD on 10/27/17 1211 Last Action: Converted on 02/02/181908 by ANGELICA ROSSI [Pantoprazole] 40 MG TABLET.DR, 40 MG PO BIDAC for 30 Days Prescribed by: MALCOM HAWKINS MD on 10/27/17 1211 Last Action: Converted on 02/02/181908 by ANGELICA ROSSI Scheduled PRN Tramadol Hcl (Tramadol Hcl) 50 Mg Tablet, 1 TAB PO PRN Q6HRS PRN for PAIN, #20 Prescribed by: KVNG ALLRED on 10/29/16 1455 Last Action: Continued on 02/01/182203 by HAKEEM MATHEWS Trazodone Hcl (Trazodone Hcl) 50 Mg Tablet, 50 MG PO PRN QHS PRN for INSOMNIA for 30 Days, Ref 4 Prescribed by: MARYCHUY SINGH on 02/04/18 0749 MARYCHUY SINGH MD Feb 04, 2018 09:17
--- NOTE | 2018-02-04 09:21 | DISCH ---
DISCHARGE WITH HOME HEALTH DISCHARGE INFORMATION: Final Diagnosis: Problems Medical Problems: (1) Dyspnea Status: Acute (2) ESRD (end stage renal disease) on dialysis Status: Acute (3) HTN (hypertension) Status: Acute Condition on Discharge: Stable CODE STATUS: Code Status: Full HOME HEALTH: Face to Face: I certify this patient is under my care and that I, or a nurse practitioner or physician's dental chairside assistant working with me, had a face to face encounter that meets the physician face to face encounter requirements with this patient on []. Medical Complications: Other (esrd) Physical Therapy For: Evalulation/Treatment Occupational Therapy For: Evaluation/Treatment Home Health Aide For: Self-care POST DISCHARGE ORDERS: Activity Instructions for Disc: No restrictions, Activity as tolerated Weight Bearing Status after Di: As tolerated DIET AFTER DISCHARGE: Renal CHECKS AFTER DISCHARGE: Checks after discharge: Check blood press - daily TREATMENT/EQUIPMENT ORDERS: Adaptive Equipment Issued: None Discharge Respiratory Equipmen: Oxygen CERTIFICATION STATEMENT: Certification Statement: Certification Statement: Based on the above finding, I certify that this patient is confined to the home and needs intermittent group home care, physical therapy and/or speech therapy, or continues to need occupational therapy.~ This patient is under my care, and I have initiated the establishment of the plan of care.~ This patient will be followed by myself or a community physician who will periodically review the plan of care. Home Meds Active Scripts Trazodone Hcl (TRAZODONE HCL) 50 Mg Tablet, 50 MG PO PRN QHS PRN for INSOMNIA for 30 Days, TAB 4 Refills Prov:MARYCHUY SINGH MD 02/04/18 Sucralfate (CARAFATE) 1 Gm Tablet, 1 GM PO TIDAC for 30 Days, #90 TAB Prov:MALCOM HAWKINS MD 10/27/17 Ergocalciferol (Vitamin D2) (VITAMIN D2) 50,000 Unit Capsule, 03404 UNIT PO WEEKLY for 30 Days, #3 CAP Prov:MALCOM HAWKINS MD 10/27/17 [Pantoprazole] [address] Milligan Conflict Check, 40 MG PO BIDAC for 30 Days Prov:MALCOM HAWKINS MD 10/27/17 Insulin Glargine,Hum.rec.anlog (LANTUS SOLOSTAR) 100 Unit/1 Ml Insuln.pen, 5 UNITS SQ QHS for 30 Days, #1 EACH Prov:MOUSSA,HALLA S MD 10/08/17 Carvedilol (CARVEDILOL) 3.125 Mg Tablet, 6.25 MG PO BIDWMEALS for 30 Days, #120 TAB 6 Refills Prov:BRENDA PABON MD 02/17/17 Tramadol Hcl (TRAMADOL HCL) 50 Mg Tablet, 1 TAB PO PRN Q6HRS PRN for PAIN, #20 TAB Prov:KVNG ALLRED MD 10/29/16 Sertraline Hcl (SERTRALINE HCL) 25 Mg Tablet, 25 MG PO DAILY for 30 Days, TAB 6 Refills Prov:BRENDA PABON MD 12/03/15 Reported Medications Hydralazine Hcl (HYDRALAZINE HCL) 50 Mg Tablet, 50 MG PO BID, TAB 02/01/18 Atorvastatin Calcium (LIPITOR) 20 Mg Tablet, 20 MG PO HS for FOR CHOLESTEROL, # 30 TAB 0 Refills 04/06/14 Clopidogrel Bisulfate (PLAVIX) 75 Mg Tablet, 75 MG PO DAILY for TO PREVENT BLOOD CLOTS, #30 TAB 0 Refills 03/05/14 Aspirin (ASPIRIN) 81 Mg Tab.chew, 81 MG PO DAILY, TAB.CHEW 03/05/14 Levothyroxine Sodium (SYNTHROID) 75 Mcg Tablet, 75 MCG PO DAILYAC for THYROID SUPPLEMENT, #30 TAB 0 Refills 11/22/13 Sevelamer Carbonate (RENVELA) 800 Mg Tablet, 800 MG PO TIDAC 11/22/13 Folic Acid/Vitamin B Comp W-C (NEPHRO-GEETA TABLET) 0.8 Mg Tablet, 0.8 MG PO DAILY 11/22/13 Furosemide (LASIX) 40 Mg Tablet, 40 MG PO DAILY, TAB 11/22/13 MARYCHUY SINGH MD Feb 04, 2018 09:21
[2018-02-04] MEDS ORDERED: PROAIR HFA8.5 GM INH (09:22)
[2018-02-04 09:31] LABS: ALBUMIN 3.2 g/dL (3.4-5.0); CALCIUM 8.2 mg/dL (8.5-10.1); CREATININE 4.5 mg/dL (0.6-1.0); GFR 11.3; POTASSIUM 4.9 mmol/L (3.5-5.1)
[2018-02-04] MEDS: SUCRALFATE 1 GM TABLET. PO SCH ×2 (09:55→14:59)
[2018-02-04 11:00] VITALS: BP 138/58
--- NOTE | 2018-02-04 13:07 | PDOC ---
Renal-Progress Notes Subjective Notes Notes NO SOB History of Present Illness Hx of present illness BETTER Vitals Vitals Vital Signs Date Time Temp Pulse Resp B/P (MAP) Pulse Ox O2 Delivery O2 Flow Rate FiO2 02/04/18 11:07 18 Room Air 02/04/18 11:00 97.9 68 138/58 (84) 96 97.9 Weight Weight [ ] I.O. Intake and Output Intake and Output 02/04/18 07:00 Intake Total 1500 ml Balance 1500 ml Intake Oral 1500 ml # Voids 2 # Bowel Movements 1 Labs Labs Laboratory Tests Test 02/03/18 16:41 02/03/18 20:11 02/04/18 07:38 02/04/18 07:45 Glucose (Fingerstick) 73 mg/dL (70-99) 151 mg/dL (70-99) 244 mg/dL (70-99) Hemoglobin 11.7 g/dL (12.0-15.5) Hematocrit 35.9 % (36.0-47.0) Mean Corpuscular Hemoglobin Concent 33 g/dL (31-37) Sodium Level 134 mmol/L (136-145) Potassium Level 4.9 mmol/L (3.5-5.1) Chloride Level 97 mmol/L (98-107) Carbon Dioxide Level 28 mmol/L (21-32) Anion Gap 9 (6-14) Blood Urea Nitrogen 32 mg/dL (7-20) Creatinine 4.5 mg/dL (0.6-1.0) Estimated GFR (Cockcroft-Gault) 11.3 Glucose Level 264 mg/dL (70-99) Calcium Level 8.2 mg/dL (8.5-10.1) Phosphorus Level 2.0 mg/dL (2.6-4.7) Albumin 3.2 g/dL (3.4-5.0) Test 02/04/18 11:10 Glucose (Fingerstick) 286 mg/dL (70-99) Review of Systems Constitutional: yes: weakness, alert, oriented Ears/Nose/Throat: Yes: no symptom reported Eyes: Yes: no symptom reported Pulmonary: Yes no symptom reported Cardiovascular: Yes no symptom reported Gastrointestional: Yes: no symptom reported Genitourinary: Yes: no symptom reported Musculoskeletal: Yes: no symptom reported Skin: Yes no symptom reported Psychiatric/Neurological: Yes: no symptom reported Endocrine: Yes: no symptom reported Physical Exam General Appearance: no apparent distress Respiratory: bilateral CTA Heart: S1S2, RRR Abdomen: soft Genitourinary: bladder flat Extremities: pulses present Neurology: alert Musculoskeletal: Osteoarthritis Assessment Assessment IMP ESRD ACUTE ON CHRONIC D CHG ANEMIA HTN-LABILE DM II PLAN HD TOMORROW D/C PLANS NOTED ENC FLUID RESTRICTIONS JAVID BLANCHARD MD Feb 04, 2018 13:07
[2018-02-04 14:58] VITALS: BP 135/60
[2018-02-04 16:01] LABS: BILIRUBIN,URINE SMALL (NEG); CLARITY,URINE TURBID; NITRITE,URINE NEGATIVE (NEG); PROTEIN,URINE 100 mg/dL (NEG-TRACE); UROBILINOGEN,URINE 0.2 mg/dL (0.2 mg/dL)
[2018-02-04 16:16] LABS: COLOR,URINE YELLOW
[2018-02-04 16:17] LABS: BACTERIA,URINE MANY /HPF (0-FEW); WBC,URINE TNTC /HPF (0-4)
--- NOTE | 2018-02-04 16:43 | PDOC ---
PROGRESS NOTES Subjective Subjective Patient feeling better. Dyspnea improved. Objective Objective Vital Signs Date Time Temp Pulse Resp B/P (MAP) Pulse Ox O2 Delivery O2 Flow Rate FiO2 02/04/18 14:58 97.9 67 18 135/60 (85) 96 Room Air 97.9 Intake and Output 02/04/18 07:00 Intake Total 1500 ml Balance 1500 ml Intake Oral 1500 ml # Voids 2 # Bowel Movements 1 Physical Exam Abdomen: Normal bowel sounds Heart: Regular rate Extremities: No clubbing, No cyanosis, Other (1-2+ bilateral LE pitting edema) General: No acute distress HEENT: Atraumatic, Mucous membr. moist/pink Lungs: Other (slightly decreased breath sounds) Neuro: Normal speech, Sensation intact Psych/Mental Status: Mental status NL, Mood NL Skin: No breakdown, No significant lesion Assessment Assessment 1. Acute on chronic systolic/diastolic dysfunction: Better compensated. Repeat 2 -D echo showed LVEF 30-35%. Continue current medical regimen. 2. Cardiomyopathy: Most probably nonischemic with repeat 2-D echo showing LVEF 30-35% as stated above. We will address the issue of AICD implantation as an outpatient 3. ESRD: Continue fluid removal with hemodialysis per nephrology team 4. HTN: Controlled with few labile episodes 5. DM2/HLP 6. CAD: CP free. EKG SR without acute changes by comparison. PCI/BMS to RCA 2016. Continue present treatment. Plan Plan of Care Problems Medical Problems: (1) Dyspnea Status: Acute (2) ESRD (end stage renal disease) on dialysis Status: Acute (3) HTN (hypertension) Status: Acute Comment Review of Relevant I have reviewed the following items qing (where applicable) has been applied. Labs Laboratory Tests Test 02/03/18 20:11 02/04/18 07:38 02/04/18 07:45 02/04/18 11:10 Glucose (Fingerstick) 151 mg/dL (70-99) 244 mg/dL (70-99) 286 mg/dL (70-99) Hemoglobin 11.7 g/dL (12.0-15.5) Hematocrit 35.9 % (36.0-47.0) Mean Corpuscular Hemoglobin Concent 33 g/dL (31-37) Sodium Level 134 mmol/L (136-145) Potassium Level 4.9 mmol/L (3.5-5.1) Chloride Level 97 mmol/L (98-107) Carbon Dioxide Level 28 mmol/L (21-32) Anion Gap 9 (6-14) Blood Urea Nitrogen 32 mg/dL (7-20) Creatinine 4.5 mg/dL (0.6-1.0) Estimated GFR (Cockcroft-Gault) 11.3 Glucose Level 264 mg/dL (70-99) Calcium Level 8.2 mg/dL (8.5-10.1) Phosphorus Level 2.0 mg/dL (2.6-4.7) Albumin 3.2 g/dL (3.4-5.0) Test 02/04/18 15:30 02/04/18 16:08 Urine Collection Type U cath Urine Color Yellow Urine Clarity Turbid Urine pH 6.0 Urine Specific [place] 1.020 Urine Protein 100 mg/dL (NEG-TRACE) Urine Glucose (UA) Negative mg/dL (NEG) Urine Ketones (Stick) Trace mg/dL (NEG) Urine Blood Negative (NEG) Urine Nitrite Negative (NEG) Urine Bilirubin Small (NEG) Urine Urobilinogen Dipstick 0.2 mg/dL (0.2 mg/dL) Urine Leukocyte Esterase Moderate (NEG) Urine RBC /HPF (0-2) Urine WBC Tntc /HPF (0-4) Urine Bacteria Many /HPF (0-FEW) Glucose (Fingerstick) 160 mg/dL (70-99) Medications Current Medications Ergocalciferol (Vitamin D2) 50,000 unit WEEKLY PO ; Start 02/09/18 at 09:00 Insulin Glargine (Lantus) 15 units QHS SQ Last administered on 02/03/18at 21:07 ; Start 02/03/18 at 21:00 Vitals/I & O Vital Sign - Last 24 Hours 02/03/18 02/03/18 02/03/18 02/03/18 17:09 19:00 19:50 21:02 Temp 98.2 98.2 Pulse 64 67 67 Resp 18 B/P (MAP) 140/58 121/57 (78) 121/57 Pulse Ox 98 O2 Delivery Room Air Room Air 02/03/18 02/04/18 02/04/18 02/04/18 23:00 03:00 07:00 08:00 Temp 98.3 98.0 97.9 98.3 98.0 97.9 Pulse 76 67 66 Resp 18 16 18 B/P (MAP) 115/61 (79) 126/67 (86) 141/57 (85) Pulse Ox 97 97 96 O2 Delivery Room Air Room Air Room Air Room Air 02/04/18 02/04/18 02/04/18 02/04/18 08:11 09:16 10:07 11:00 Temp 97.9 97.9 Pulse 66 66 68 Resp 18 18 B/P (MAP) 141/57 141/57 138/58 (84) Pulse Ox 96 O2 Delivery Room Air Room Air 02/04/18 02/04/18 11:07 14:58 Temp 97.9 97.9 Pulse 67 Resp 18 18 B/P (MAP) 135/60 (85) Pulse Ox 96 O2 Delivery Room Air Room Air Intake and Output 02/03/18 02/03/18 02/04/18 15:00 23:00 07:00 Intake Total 600 ml 300 ml 600 ml Balance 600 ml 300 ml 600 ml AGA LIU MD Feb 04, 2018 16:43
[2018-02-04] MEDS ORDERED: CIPROFLOXACIN HCL 250 MG TABLET. PO SCH (17:00)
[2018-02-04 17:04] VITALS: BP 135/60
[2018-02-09] MEDS ORDERED: ERGOCALCIFEROL (VITAMIN D2) 50,000 UNIT CAPSULE. PO SCH (09:00)
== END 2018-02-04 18:30 | disposition home or self-care (01) | DRG 291 ==
LOC: ER 09:32 → 5 SOUTH 11:40
PROVIDERS: ADMIT Internal Medicine; ATTEND Internal Medicine
PROC: 5A1D70Z Performance of Urinary Filtration, Intermittent, Less than 6 Hours Per Day (ICD-10-PCS; 2018-02-01)
PROC: 5A1D70Z Performance of Urinary Filtration, Intermittent, Less than 6 Hours Per Day (ICD-10-PCS; 2018-02-02)
PROC: 0HBRXZZ Excision of Toe Nail, External Approach (ICD-10-PCS; principal; 2018-02-03)
PROC: 0HBRXZZ Excision of Toe Nail, External Approach (ICD-10-PCS; 2018-02-03)
PROC: 0HBRXZZ Excision of Toe Nail, External Approach (ICD-10-PCS; 2018-02-03)
PROC: 0HBRXZZ Excision of Toe Nail, External Approach (ICD-10-PCS; 2018-02-03)
PROC: 0HBRXZZ Excision of Toe Nail, External Approach (ICD-10-PCS; 2018-02-03)
PROC: 0HBRXZZ Excision of Toe Nail, External Approach (ICD-10-PCS; 2018-02-03)
PROC: 0HBRXZZ Excision of Toe Nail, External Approach (ICD-10-PCS; 2018-02-03)
PROC: 0HBRXZZ Excision of Toe Nail, External Approach (ICD-10-PCS; 2018-02-03)
DX: I13.2 Hypertensive heart and chronic kidney disease with heart failure and with stage 5 chronic kidney disease, or end stage renal disease (principal); I50.43 Acute on chronic combined systolic (congestive) and diastolic (congestive) heart failure; N18.6 End stage renal disease; I42.0 Dilated cardiomyopathy; K21.9 Gastro-esophageal reflux disease without esophagitis; E11.21 Type 2 diabetes mellitus with diabetic nephropathy; E89.0 Postprocedural hypothyroidism; E11.22 Type 2 diabetes mellitus with diabetic chronic kidney disease; M19.90 Unspecified osteoarthritis, unspecified site; E78.5 Hyperlipidemia, unspecified; I25.10 Atherosclerotic heart disease of native coronary artery without angina pectoris; L60.1 Onycholysis; L60.0 Ingrowing nail; B35.1 Tinea unguium; G89.29 Other chronic pain; F41.9 Anxiety disorder, unspecified; F51.05 Insomnia due to other mental disorder; F32.9 Major depressive disorder, single episode, unspecified; D64.9 Anemia, unspecified; E87.5 Hyperkalemia; G47.00 Insomnia, unspecified; C50.819 Malignant neoplasm of overlapping sites of unspecified female breast; Z86.73 Personal history of transient ischemic attack (TIA), and cerebral infarction without residual deficits; Z85.3 Personal history of malignant neoplasm of breast; Z90.710 Acquired absence of both cervix and uterus; Z90.13 Acquired absence of bilateral breasts and nipples; Z79.4 Long term (current) use of insulin; Z82.49 Family history of ischemic heart disease and other diseases of the circulatory system; Z83.3 Family history of diabetes mellitus; Z99.2 Dependence on renal dialysis; Z88.6 Allergy status to analgesic agent; Z91.041 Radiographic dye allergy status; Z98.49 Cataract extraction status, unspecified eye; Z90.49 Acquired absence of other specified parts of digestive tract
CPT/HCPCS: 36415; 71045; 80053; 80061; 80069; 81001; 82553; 82962; 83036; 83880; 84443; 84484; 85014; 85018; 85025; 85610; 85730; 93005; 93308; J1200; J1815; Q0163; 97110; 97116; 97530; 99285-25

== ENCOUNTER 2018-03-11 08:40 | Inpatient (IN) | payer MEDICARE, OTHER ==
[2018-03-11] VITALS (15 sets, daily range): BP systolic 78–178; BP diastolic 43–77
[~2018-03-11] VITALS: Ht 154.9 cm; Wt 71.2 kg
[~2018-03-11 08:40] MED LIST changes: +HYDR-2869 PO; +IV RINGERS,LACTATED 1000ML 1,000 ML IV SCH; +LIDOCAINE 1% PF 2 ML VIAL. ID PRN; +ONDANSETRON PF 4 MG/2 ML VIAL. IV PRN; +PROAIR HFA8.5 GM INH; +PROCHLORPERAZINE 10 MG/2 ML VIAL. IV PRN; +fentaNYL PF VIAL 100 MCG/2 ML VIAL IV PRN
[2018-03-11] MEDS ORDERED: PROPOFOL 100 ML IV ONE (08:54)
--- NOTE | 2018-03-11 09:21 | EKG ---
[facility] [address] [place] [address] Test Date: 2018-03-11 Test Time: 09:14:22 Pat Name: BRANT HALL Department: Room: Gender: F Apple Thinner: ROSA ELENA : 1935 Requested By: AGA LIU Order Number: [id number] Reading MD: Bam Shaffer MD Measurements Intervals [place] Rate: 67 P: 59 CT: 168 QRS: -16 QRSD: 82 T: 111 QT: 428 QTc: 455 Interpretive Statements SINUS RHYTHM NON-SPECIFIC ST/T CHANGES Electronically Signed On 03-11-2018 12:31:45 CDT by Bam Shaffer MD
[2018-03-11 09:44] LABS: HEMATOCRIT 37.7 % (36.0-47.0); HEMOGLOBIN 12.6 g/dL (12.0-15.5); RED BLOOD COUNT 3.77 x10^6/uL (3.50-5.40); RED CELL DISTRIBUTION WIDTH 16.7 % (11.5-14.5); WHITE BLOOD COUNT 5.2 x10^3/uL (4.0-11.0)
[2018-03-11 09:53] LABS: CALCIUM 8.1 mg/dL (8.5-10.1); CREATININE 5.3 mg/dL (0.6-1.0); GFR 9.4; POTASSIUM 4.3 mmol/L (3.5-5.1)
[2018-03-11] MEDS ORDERED: MIDAZOLAM HCL/PF 2 MG/2 ML VIAL. ONE (09:53)
[2018-03-11] MEDS ORDERED: LIDOCAINE 2% PF Vial for OR 5 ML VIAL. ONE (09:53)
[2018-03-11] MEDS ORDERED: PROPOFOL 20 ML IV ONE (09:53)
[2018-03-11] MEDS ORDERED: BACITRACIN 50,000 UNIT in IV NORMAL SALINE 250ML 250 ML IRR ONE (10:30)
[2018-03-11] MEDS ORDERED: KETAMINE HCL 50 MG/5 ML SYRINGE ONE (10:39)
[2018-03-11] MEDS ORDERED: LIDOCAINE 2%/EPI 1:100,000 20 ML VIAL. ONE (10:47)
[2018-03-11] MEDS ORDERED: ONDANSETRON PF 4 MG/2 ML VIAL. ONE (10:49)
[2018-03-11] MEDS ORDERED: ONDANSETRON PF 4 MG/2 ML VIAL. IV ONE (11:00)
[2018-03-11] MEDS ORDERED: LIDOCAINE 2%/EPI 1:100,000 20 ML VIAL. IJ ONE (12:15)
[2018-03-11] MEDS ORDERED: NO ANTICOAGULANT THERAPY. MC PRN (12:30)
--- NOTE | 2018-03-11 12:34 | CARD ---
MR#: [id number] Date of Study: 03/11/2018 Ordering Physician: AGA BONE, Referring Physician: AGA BONE Tech: RT Won (R) APPROVED REPORT Technologist: RT Won (R) Nurse: Emma Garay R.N. Procedure(s) performed: Successful implantation of Biotronik dual-chamber automatic implantable cardi overter defibrillator with defibrillation thresholds measurement of the time of implantation INDICATION The indication(s) include : Primary prevention of sudden cardiac in a patient with ischemic car diomyopathy and chronic systolic heart failure. PROCEDURE NARRATIVE After explaining the risks, benefits and alternative options, informed consent was obtained from radha ent. Patient was brought to the cardiac Analyst Business Analysis and her left chest and shoulder were prepped and epi ped in the usual fashion. 30 mL of 2% lidocaine was infiltrated into the skin and subcutaneous tissue s for local anesthesia. An incision was made over the left infraclavicular fossa and using blunt diss ection and cautery a pocket was created. Venous access was obtained in the left subclavian vein and 6 and 8 Russian sheaths inserted. A Biotronik bipolar active fixation right ventricular lead model Plexa ProMRI serial #[id number] was po sitioned in the right ventricular apex under fluoroscopy guidance. Following this, a Biotronik bipola r active fixation right atrial lead model Solia, serial #[id number] was positioned in the right atrial appendage under fluoroscopy guidance. The leads were secured into place and attached to a Biotronik d ual-chamber AICD generator model Ilivia 7 DR-T DF4 ProMRI, serial #[id number]. This was placed in the p ocket that was subsequently closed in 3 layers. Hemostasis was secured. Ventricular fibrillation was then induced to check the defibrillation threshold. Patient successfully converted to sinus rhythm with 15 J shock therapy. At the end of procedure, the right ventricular le ad showed a sensing amplitude of 14.7 mV, impedance of 426 ohms and a threshold of 0.6 V. The right a trial lead showed a sensing amplitude of 2.8 mV, impedance of 472 ohms and a threshold of 0.8 V. Radha ent tolerated the procedure well. There were no immediate complications. Conclusion Successful implantation of Biotronik dual-chamber automatic implantable cardioverter defibrillator fo r primary prevention of sudden cardiac in a patient with chronic systolic heart failure. Defibr illation thresholds were measured at the time of implantation. Signed by : Aga Bone, Electronically Approved : 03/11/2018 12:33:10
--- NOTE | 2018-03-11 14:21 | RAD ---
Portable chest, 03/11/2018: HISTORY: Post pacemaker insertion Comparison is made to a study from 02/01/2018. A left-sided transvenous pacemaker has been inserted with one lead extending into the inferior aspect of the right ventricle while the tip of the other lead is projected over the superior aspect of the right atrium. A vascular stent is again noted in the right innominate vein region. The heart is enlarged. There is calcific plaquing and tortuosity of the thoracic aorta. The pulmonary vascularity is at the upper limits of normal. No pulmonary infiltrate is seen. There is no evidence of pleural fluid or pneumothorax. IMPRESSION: 1. Cardiomegaly and aortic atherosclerosis. 2. Interval insertion of a left-sided transvenous pacing device. 3. No acute abnormality is detected. Electronically signed by: Toñito eHrr MD (03/11/2018 2:17 PM) [facility]
[2018-03-11] MEDS ORDERED: ceFAZolin SODIUM 1 GM in IV DEXTROSE 5% 50 ML IV ONE (17:30)
[2018-03-11] MEDS ORDERED: traZODone 50 MG TABLET. PO PRN (18:00)
[2018-03-11] MEDS ORDERED: NON FORMULARY ITEM (Albuterol Sulfate (Proair Hfa Inhaler) 1 PUFF) INH PRN (18:00)
[2018-03-11] MEDS ORDERED: INSU100C SQ (18:07)
[2018-03-11] MEDS ORDERED: DEXTROSE 50% 25 GM / 50ML DISP.SYRIN. IV PRN (18:15)
[2018-03-11] MEDS: CARVEDILOL 6.25 MG TABLET. PO SCH (18:19)
[2018-03-11] MEDS ORDERED: ALBUTEROL SULFATE 2.5 MG/3 ML NEBU. NEB PRN (18:30)
[2018-03-11] MEDS: ATORVASTATIN CALCIUM 20 MG TABLET PO SCH (20:18)
[2018-03-11] MEDS: INSULIN LISPRO 300 UNITS/3 ML INSULN.PEN. SQ SCH (20:28)
[2018-03-11] MEDS: INSULIN GLARGINE 300 UNITS/3 ML INSULN.PEN. SQ SCH (20:29)
[2018-03-12 02:50] VITALS: BP 154/70
[2018-03-12 07:00] VITALS: BP 154/71
[2018-03-12] MEDS: LEVOTHYROXINE 75 MCG TABLET PO SCH (07:30)
[2018-03-12] MEDS ORDERED: IV NORMAL SALINE 1000ML BAG 1,000 ML IV PRN ×2 (08:14)
[2018-03-12] MEDS ORDERED: DIALYSIS PATIENT. MC PRN ×2 (08:15)
[2018-03-12] MEDS ORDERED: LABETALOL 20 MG/4 ML DISP.SYRIN. IVP PRN (08:15)
[2018-03-12] MEDS: FOLIC/VIT B COMP W-C (RENAL) TABLET. PO SCH (08:23)
[2018-03-12] MEDS: FUROSEMIDE 40 MG TABLET. PO SCH (08:24)
[2018-03-12] MEDS: PANTOPRAZOLE 40 MG TABLET.DR. PO SCH ×2 (08:24→16:55)
[2018-03-12] MEDS: ASPIRIN CHEWABLE 81 MG TABLET. PO SCH (08:24)
[2018-03-12] MEDS: SERTRALINE 25 MG TABLET. PO SCH (08:24)
[2018-03-12] MEDS: SUCRALFATE 1 GM TABLET. PO SCH ×3 (08:24→16:50)
[2018-03-12] MEDS: CARVEDILOL 6.25 MG TABLET. PO SCH ×2 (08:25→16:50)
[2018-03-12] MEDS: INSULIN LISPRO 300 UNITS/3 ML INSULN.PEN. SQ SCH ×3 (08:34→16:53)
--- NOTE | 2018-03-12 10:02 | RAD ---
Chest, 2 views, 03/12/2018: HISTORY: Post pacemaker insertion Comparison is made to yesterday's study. The left-sided transvenous pacemaker leads are unchanged in positions. A right innominate venous stent is again noted. The heart is enlarged. There is calcific plaquing and tortuosity of the thoracic aorta. A small amount pleural fluid has developed on the right with mild underlying basilar atelectasis. No left-sided pleural fluid or infiltrate is seen. There is no evidence of pneumothorax. IMPRESSION: 1. Cardiomegaly and aortic atherosclerosis. 2. New small right pleural effusion. Electronically signed by: Toñito Herr MD (03/12/2018 9:59 AM) [facility]
--- NOTE | 2018-03-12 11:30 | PDOC2 ---
CONSULT Date of Consult Date of Consult DATE: 03/12/18 TIME: 11:25 Reason for Consult Reason for Consult: ESRD Referring Physician Referring Physician: NOE Identification/Chief Complaint Chief Complaint WEAKNESS Source Source: Chart review, Patient History of Present Illness Reason for Visit: THIS IS AN 82 YR OLD WITH ESRD. ADMITTED AND UNDERWENT DEFIBRILLATOR PLACEMENT YESTERDAY. HAS ESRD AN IS ON OP HD ON TTS. HER LABS ARE C/W ESRD. ESRD DUE TO HTN AND DM II. TODAY FEELS VERY WEAK. SHE HAS NO ENERGY AND HAS BACK PAIN AND GENERALIZED WEAKNESS Past Medical History Cardiovascular: CAD, CHF, HTN, Other Pulmonary: Other CENTRAL NERVOUS SYSTEM: TIA GI: GERD Heme/Onc: Anemia NOS, Cancer Hepatobiliary: No pertinent hx Psych: No pertinent hx Musculoskeletal: Osteoarthritis Rheumatologic: No pertinent hx Infectious disease: No pertinent hx Renal/: Chronic renal failure Endocrine: Diabetes Past Surgical History Past Surgical History: Appendectomy, Cholecystectomy, Cataract Removal, Mastectomy, Hysterectomy, Other Family History Family History: Cancer, Diabetes, Heart Disease Social History ALCOHOL: none Drugs: None Lives: Senior Care Current Medications Current Medications Current Medications Ondansetron HCl (Zofran) 4 mg PRN Q6HRS PRN IV NAUSEA/VOMITING; Start at 07:00; Stop 03/12/18 at 07:00; Status DC Fentanyl Citrate (Fentanyl 2ml Vial) 25 mcg PRN Q5MIN PRN IV MILD PAIN; Start 03/11/18 at 07:00; Stop 03/12/18 at 07:00; Status DC Fentanyl Citrate (Fentanyl 2ml Vial) 50 mcg PRN Q5MIN PRN IV MODERATE TO SEVERE PAIN; Start 03/11/18 at 07:00; Stop 03/12/18 at 07:00; Status DC Ringer's Solution 1,000 ml @ 30 mls/hr Q24H IV ; Start 03/11/18 at 07:00; Stop 03/11/18 at 18:59; Status DC Lidocaine HCl (Xylocaine-Mpf 1% 2ml Vial) 2 ml PRN 1X PRN ID PRIOR TO IV START ; Start 03/11/18 at 07:00; Stop 03/12/18 at 07:00; Status DC Prochlorperazine Edisylate (Compazine) 5 mg PACU PRN PRN IV NAUSEA, MRX1; Start 03/11/18 at 07:00; Stop 03/12/18 at 07:00; Status DC Cefazolin Sodium 50 ml @ 100 mls/hr 1X ONCE IV Last administered on at 09:15; Start 03/11/18 at 09:15; Stop 03/11/18 at 09:44; Status DC Bacitracin 28931 unit/Sodium Chloride 250 ml @ 250 mls/hr 1X ONCE IRR Last administered on 03/11/18at 10:30; Start 03/11/18 at 10:30; Stop 03/11/18 at 11 :29; Status DC Propofol 20 ml @ As Directed STK-MED ONCE IV ; Start 03/11/18 at 09:53; Stop 03/11/18 at 09:54; Status DC Lidocaine HCl (Lidocaine Pf 2% Vial) 5 ml STK-MED ONCE .ROUTE ; Start 03/11/18 at 09:53; Stop 03/11/18 at 09:54; Status DC Midazolam HCl (Versed) 2 mg STK-MED ONCE .ROUTE ; Start 03/11/18 at 09:53; Stop 03/11/18 at 09:54; Status DC Propofol 100 ml @ As Directed STK-MED ONCE IV ; Start 03/11/18 at 08:54; Stop 03/11/18 at 09:55; Status DC Ketamine HCl (Ketamine) 50 mg STK-MED ONCE .ROUTE ; Start 03/11/18 at 10:39; Stop 03/11/18 at 10:40; Status Cancel Cefazolin Sodium 50 ml @ As Directed STK-MED ONCE IV ; Start 03/11/18 at 10:46 ; Stop 03/11/18 at 10:47; Status DC Lidocaine/ Epinephrine (LIDOCAINE 2%-EPI 1:100,000 multi-dose) 20 ml STK-MED ONCE .ROUTE ; Start 03/11/18 at 10:47; Stop 03/11/18 at 10:48; Status DC Ondansetron HCl (Zofran) 4 mg STK-MED ONCE .ROUTE ; Start 03/11/18 at 10:49; Stop 03/11/18 at 10:50; Status DC Ondansetron HCl (Zofran) 8 mg 1X ONCE IV Last administered on 03/11/18at 10:52 ; Start 03/11/18 at 11:00; Stop 03/11/18 at 11:01; Status DC Lidocaine/ Epinephrine (LIDOCAINE 2%-EPI 1:100,000 multi-dose) 30 ml 1X ONCE IJ Last administered on 03/11/18at 12:05; Start 03/11/18 at 12:15; Stop 03/11 at 12:16; Status DC Info (No Anticoagulant Therapy) 1 ea CONT PRN PRN MC PER PROTOCOL; Start 03/11 at 12:30 Cefazolin Sodium 1 gm/Dextrose 50 ml @ 100 mls/hr 1X ONCE IV Last administered on 03/11/18at 18:19; Start 03/11/18 at 17:30; Stop 03/11/18 at 17 :59; Status DC Aspirin (Children'S Aspirin) 81 mg DAILY PO Last administered on 03/12/18at 08: 24; Start 03/12/18 at 09:00 Atorvastatin Calcium (Lipitor) 20 mg HS PO Last administered on 03/11/18at 20: 18; Start 03/11/18 at 21:00 Carvedilol (Coreg) 6.25 mg BIDWMEALS PO Last administered on 03/12/18at 08:25; Start 03/11/18 at 18:30 Ergocalciferol (Vitamin D2) 50,000 unit WEEKLY PO ; Start 03/16/18 at 09:00 Vitamin B Complex/ Vitamin C (Johana-Manuel) 1 tab DAILY PO Last administered on at 08:23; Start 03/12/18 at 09:00 Furosemide (Lasix) 40 mg DAILY PO Last administered on 03/12/18at 08:24; Start 03/12/18 at 09:00 Insulin Glargine (Lantus) 5 units QHS SQ Last administered on 03/11/18at 20:29 ; Start 03/11/18 at 21:00 Levothyroxine Sodium (Synthroid) 75 mcg DAILYAC PO ; Start 03/12/18 at 07:30 Trazodone HCl (Desyrel) 50 mg PRN QHS PRN PO INSOMNIA; Start 03/11/18 at 18:00 Non-Formulary Medication (Albuterol Sulfate (Proair Hfa Inhaler)) 1 puff PRN Q6HRS PRN INH SHORTNESS OF BREATH; Start 03/11/18 at 18:00; Stop 03/11/18 at 18:17; Status DC Hydralazine HCl (Apresoline) 50 mg BID PO Last administered on 03/12/18at 08:25 ; Start 03/11/18 at 21:00 Sertraline HCl (Zoloft) 25 mg DAILY PO Last administered on 03/12/18at 08:24; Start 03/12/18 at 09:00 Sucralfate (Carafate) 1 gm TIDAC PO Last administered on 03/12/18at 08:24; Start 03/12/18 at 07:30 Pantoprazole Sodium (Protonix) 40 mg BIDAC PO Last administered on 03/12/18at 08:24; Start 03/12/18 at 07:30 Insulin Human Lispro (HumaLOG) 0-5 UNITS TIDWMEALS SQ Last administered on at 08:34; Start 03/11/18 at 18:45 Dextrose (Dextrose 50%-Water Syringe) 12.5 gm PRN Q15MIN PRN IV SEE COMMENTS; Start 03/11/18 at 18:15 Albuterol Sulfate (Ventolin Neb Soln) 2.5 mg PRN Q6HRS PRN NEB SHORTNESS OF BREATH; Start 03/11/18 at 18:30 Sodium Chloride 1,000 ml @ 1,000 mls/hr Q1H PRN IV hypotension; Start at 08:14; Stop 03/12/18 at 14:13 Labetalol HCl (Normodyne Iv Push) 10 mg PRN Q1HR PRN IVP SBP > 180; Start at 08:15; Stop 03/13/18 at 08:14 Sodium Chloride 1,000 ml @ 400 mls/hr Q2H30M PRN IV PATENCY; Start 03/12/18 at 08:14; Stop 03/12/18 at 20:13 Info (PHARMACY MONITORING -- do not chart) 1 each PRN DAILY PRN MC SEE COMMENTS ; Start 03/12/18 at 08:15; Status UNV Info (PHARMACY MONITORING -- do not chart) 1 each PRN DAILY PRN MC SEE COMMENTS ; Start 03/12/18 at 08:15 Active Scripts Active Proair Hfa Inhaler (Albuterol Sulfate) 8.5 Gm Hfa.aer.ad 1 Puff INH PRN Q6HRS PRN 30 Days Trazodone Hcl 50 Mg Tablet 50 Mg PO PRN QHS PRN 30 Days Carafate (Sucralfate) 1 Gm Tablet 1 Gm PO TIDAC 30 Days Vitamin D2 (Ergocalciferol (Vitamin D2)) 50,000 Unit Capsule 50,000 Unit PO WEEKLY 30 Days [Pantoprazole] 40 MG Tablet.dr 40 Mg PO BIDAC 30 Days Lantus Solostar (Insulin Glargine,Hum.rec.anlog) 100 Unit/1 Ml Insuln.pen 5 Units SQ QHS 30 Days Carvedilol 3.125 Mg Tablet 6.25 Mg PO BIDWMEALS 30 Days Sertraline Hcl 25 Mg Tablet 25 Mg PO DAILY 30 Days Reported Humalog (Insulin Lispro) 100 Unit/1 Ml Cartridge 0-100 Unit SQ TIDAC Hydralazine Hcl 50 Mg Tablet 50 Mg PO BID Lipitor (Atorvastatin Calcium) 20 Mg Tablet 20 Mg PO HS Aspirin 81 Mg Tab.chew 81 Mg PO DAILY Synthroid (Levothyroxine Sodium) 75 Mcg Tablet 75 Mcg PO DAILYAC Nephro-Manuel Tablet (Folic Acid/Vitamin B Comp W-C) 0.8 Mg Tablet 0.8 Mg PO DAILY Lasix (Furosemide) 40 Mg Tablet 40 Mg PO DAILY Allergies Allergies: Coded Allergies: adhesive tape (Verified Allergy, Intermediate, PAPER TAPE, 09/27/17) morphine (Verified Allergy, Mild, Itching, 12/16/17) ROS General: YES: Fatigue, Malaise, Appetite PSYCHOLOGICAL ROS: YES: Anxiety Eyes: Yes Decreased vision HEENT: YES: Heacaches Respiratory: YES: Cough Gastrointestinal: Yes Constipation Genitourinary: YES Other (ANURIA) Musculoskeletal: Yes Muscular Weakness Neurological: Yes Gait Disturbance, Yes Weakness Skin: Yes Dry Skin Physical Exam General: Alert, Oriented X3, Cooperative, No acute distress HEENT: PERRLA, EOMI, Mucous membr. moist/pink Lungs: Clear to auscultation Heart: Regular rate Abdomen: Normal bowel sounds, Soft, No tenderness Extremities: No clubbing Skin: No breakdown Neuro: Normal speech, Cranial nerves 3-12 NL Psych/Mental Status: Mental status NL MUSCULOSKELETAL: No deformity, No swelling Vitals VITALS Vital Signs Date Time Temp Pulse Resp B/P (MAP) Pulse Ox O2 Delivery O2 Flow Rate FiO2 03/12/18 08:25 65 154/71 03/12/18 08:00 Nasal Cannula 3.0 03/12/18 07:00 97.7 14 100 97.7 Labs Labs Laboratory Tests Test 03/11/18 09:35 03/11/18 13:10 03/11/18 16:45 03/11/18 20:19 White Blood Count 5.2 x10^3/uL (4.0-11.0) Red Blood Count 3.77 x10^6/uL (3.50-5.40) Hemoglobin 12.6 g/dL (12.0-15.5) Hematocrit 37.7 % (36.0-47.0) Mean Corpuscular Volume 100 fL (79-100) Mean Corpuscular Hemoglobin 34 pg (25-35) Mean Corpuscular Hemoglobin Concent 34 g/dL (31-37) Red Cell Distribution Width 16.7 % (11.5-14.5) Platelet Count 116 x10^3/uL (140-400) Prothrombin Time 14.0 SEC (11.7-14.0) Prothromb Time International Ratio 1.1 (0.8-1.1) Sodium Level 137 mmol/L (136-145) Potassium Level 4.3 mmol/L (3.5-5.1) Chloride Level 100 mmol/L (98-107) Carbon Dioxide Level 23 mmol/L (21-32) Anion Gap 14 (6-14) Blood Urea Nitrogen 49 mg/dL (7-20) Creatinine 5.3 mg/dL (0.6-1.0) Estimated GFR (Cockcroft-Gault) 9.4 Glucose Level 189 mg/dL (70-99) Calcium Level 8.1 mg/dL (8.5-10.1) Glucose (Fingerstick) 150 mg/dL (70-99) 277 mg/dL (70-99) 270 mg/dL (70-99) Test 03/12/18 04:57 03/12/18 07:22 Glucose (Fingerstick) 292 mg/dL (70-99) 223 mg/dL (70-99) Laboratory Tests Test 03/11/18 13:10 03/11/18 16:45 03/11/18 20:19 03/12/18 04:57 Glucose (Fingerstick) 150 mg/dL (70-99) 277 mg/dL (70-99) 270 mg/dL (70-99) 292 mg/dL (70-99) Test 03/12/18 07:22 Glucose (Fingerstick) 223 mg/dL (70-99) Assessment/Plan Assessment/Plan IMP ESRD HTN ANEMIA DM II S/P DEFIBRILLATOR DECONDITIONING PLAN HD TODAY UF TO DW HOLD JUDITH NEEDS REHAB JAVID BLANCHARD MD Mar 12, 2018 11:30
[2018-03-12] MEDS ORDERED: DEXTROSE 50% 25 GM / 50ML DISP.SYRIN. IV PRN (12:00)
--- NOTE | 2018-03-12 14:43 | PDOC ---
VEDA SPRING CHRISTIAN SCIENCE PRACTITIONER 03/12/18 1443: CARDIO Progress Notes Date and Time Date of Service 03/12/2018 Time of Evaluation 1300 Subjective Subjective: No Chest Pain, No shortness of breath, No Palpitations, Other ( complains of weakness and not able to care for self at home) Vitals Vitals Vital Signs Date Time Temp Pulse Resp B/P (MAP) Pulse Ox O2 Delivery O2 Flow Rate FiO2 03/12/18 08:25 65 154/71 03/12/18 08:00 Nasal Cannula 3.0 03/12/18 07:00 97.7 14 100 97.7 Weight Weight [ ] Input and Output Intake and Output Intake and Output 03/12/18 06:59 Intake Total 1290 ml Output Total 0 ml Balance 1290 ml Intake Oral 1090 ml IV Total 200 ml Output Urine Total 0 ml Laboratory Labs Laboratory Tests Test 03/11/18 16:45 03/11/18 20:19 03/12/18 04:57 03/12/18 07:22 Glucose (Fingerstick) 277 mg/dL (70-99) 270 mg/dL (70-99) 292 mg/dL (70-99) 223 mg/dL (70-99) Physical Exam HEENT: Neck Supple W Full Motion Chest: Symmetric LUNGS: Other (diminished bases) Heart: S1S2, RRR (SR) Abdomen: Soft N/T Extremities: No Calf Tenderness, Other (trace LE edema) Neurology: alert, oriented, follow commands Other Exams Left chest surgical incision is dry and intact with steristrips. No oozing, hematoma, or swelling and no erythema. LA neurovascular status intact. Sling in place. Assessment Assessment 1. Weakness 2. ICM/chronic systolic CHF: EF at 30%. NYHA 2-3. Compensated 3. S/P AICD: Biotronik, no complications. Repeat interrogation revealed normal function 4. CAD: hx of PCI/stent to RCA, clinically stable 5. HTN: SBP mean at 150s. 6. HLP 7. ESRD: HD per nephrology 8. DM2 Recommendations 1. Fluid off loading per HD 2. Continue with current cardiac regimen and insulin therapy. Restart home hydralazine and will add imdur. 3. Pt verbalized being weak and possibly unable to care self at home and worries about safety. She does have her niece in the house and currently has home health. OT/PT evela and treat and await further recommendation. Anticipate DC tomorrow unless OT/PT deemed it otherwise. AGA LIU MD 03/12/18 1547: CARDIO Progress Notes Assessment Assessment Patient seen and examined. Agree with UX MANAGER's assessment and plan. Chest x-ray without any pneumothorax. Device interrogation showed normal function. Continue hemodialysis per nephrology team. Agree with PT/OT today and consider discharge tomorrow. VEDA SPRING APRN Mar 12, 2018 14:43 AGA LIU MD Mar 12, 2018 15:47
[2018-03-12 15:36] VITALS: BP 166/68
[2018-03-12] MEDS ORDERED: HYDROcodone/APAP 5/325MG 1 TAB TABLET PO PRN (16:15)
[2018-03-12] MEDS: traMADol 50 MG TABLET PO PRN ×2 (16:50→22:45)
[2018-03-12] MEDS: ISOSORBIDE MONONITRATE ER 30 MG TAB.ER.24H PO SCH (16:50)
[2018-03-12] MEDS ORDERED: CARVEDILOL 12.5 MG TABLET. PO SCH (17:00)
[2018-03-12 19:00] VITALS: BP 161/63
[2018-03-12] MEDS: ATORVASTATIN CALCIUM 20 MG TABLET PO SCH (20:34)
[2018-03-12] MEDS: INSULIN GLARGINE 300 UNITS/3 ML INSULN.PEN. SQ SCH (20:41)
[2018-03-12 23:00] VITALS: BP 174/77
[2018-03-13 03:00] VITALS: BP 156/67
[2018-03-13] MEDS: LEVOTHYROXINE 75 MCG TABLET PO SCH (05:15)
[2018-03-13 07:36] VITALS: BP 172/79
[2018-03-13] MEDS: PANTOPRAZOLE 40 MG TABLET.DR. PO SCH ×2 (08:05→16:50)
[2018-03-13] MEDS: SUCRALFATE 1 GM TABLET. PO SCH ×3 (08:05→16:50)
[2018-03-13] MEDS: FUROSEMIDE 40 MG TABLET. PO SCH (09:05)
[2018-03-13] MEDS: SERTRALINE 25 MG TABLET. PO SCH (09:06)
[2018-03-13] MEDS: ASPIRIN CHEWABLE 81 MG TABLET. PO SCH (09:06)
[2018-03-13] MEDS: CARVEDILOL 6.25 MG TABLET. PO SCH ×2 (09:06→17:31)
[2018-03-13] MEDS: ISOSORBIDE MONONITRATE ER 30 MG TAB.ER.24H PO SCH (09:06)
[2018-03-13] MEDS: FOLIC/VIT B COMP W-C (RENAL) TABLET. PO SCH (09:06)
[2018-03-13] MEDS: INSULIN LISPRO 300 UNITS/3 ML INSULN.PEN. SQ SCH ×3 (09:12→17:34)
[2018-03-13 10:50] VITALS: BP 153/69
--- NOTE | 2018-03-13 11:57 | PDOC ---
Renal-Progress Notes Subjective Notes Notes FEELING BETTER History of Present Illness Hx of present illness STABLE Vitals Vitals Vital Signs Date Time Temp Pulse Resp B/P (MAP) Pulse Ox O2 Delivery O2 Flow Rate FiO2 03/13/18 10:50 97.8 69 18 153/69 (97) 100 Nasal Cannula 2.0 97.8 Weight Weight [ ] I.O. Intake and Output Intake and Output 03/13/18 07:00 Intake Total 1200 ml Balance 1200 ml Intake Oral 1200 ml Labs Labs Laboratory Tests Test 03/12/18 16:50 03/12/18 20:36 03/13/18 08:07 03/13/18 11:11 Glucose (Fingerstick) 127 mg/dL (70-99) 212 mg/dL (70-99) 213 mg/dL (70-99) 294 mg/dL (70-99) Review of Systems Constitutional: yes: weakness, alert, oriented Ears/Nose/Throat: Yes: no symptom reported Eyes: Yes: no symptom reported Pulmonary: Yes no symptom reported Cardiovascular: Yes no symptom reported Gastrointestional: Yes: no symptom reported Genitourinary: Yes: no symptom reported Musculoskeletal: Yes: no symptom reported Skin: Yes no symptom reported Psychiatric/Neurological: Yes: no symptom reported Endocrine: Yes: no symptom reported Physical Exam General Appearance: no apparent distress Skin: warm Respiratory: bilateral CTA Heart: S1S2 Abdomen: soft, bowel sounds present Genitourinary: bladder flat Neurology: alert, oriented, follow commands Assessment Assessment IMP ESRD ANEMIA HTN S/P DEFIBRILLATOR DECONDITIONING PLAN HD TOMORROW HOME HEALTH OK TO D/C FROM RENAL STANDPOINT JAVID BLANCHARD MD Mar 13, 2018 11:57
[2018-03-13 15:19] VITALS: BP 151/76
--- NOTE | 2018-03-13 16:00 | RAD ---
Left chest wall ultrasound, 03/13/2018: HISTORY: Chest wall swelling around pacemaker generator The area of clinical concern in the left upper chest was carefully scanned. There is subcutaneous edema. A sharp echogenic lying in the soft tissues presumably represents the anterior margin of the pacemaker generator. There is a 1 x 7 x 5 cm oval-shaped hypoechoic area along the anterior margin of the presumed pacemaker generator which most likely represents complex fluid such as seroma or hematoma. Infection cannot be excluded. A hypoechoic area posterior to the sharp echogenic line is compatible with a reverberation or mirror image artifact. No other abnormality is seen. IMPRESSION: 1. Small fluid collection along the anterior margin of the pacemaker generator in the left upper chest wall. 2. Mild subcutaneous edema. Electronically signed by: Toñito Herr MD (03/13/2018 3:57 PM) [facility]
--- NOTE | 2018-03-13 16:04 | RAD ---
Portable chest, 03/13/2018: HISTORY: Chest wall hematoma Comparison is made to yesterday's study. The left-sided transvenous pacing device is unchanged in position with 2 leads extending into the right heart multiple EKG electrodes overlie the chest. A vascular stent is again noted in the right innominate vein region. The heart is enlarged. There is calcific plaquing of the aorta. The pulmonary vascularity is at the upper limits of normal. There is mild linear atelectasis in left base. There is persistent blunting of the right lateral costophrenic angle compatible with a small amount of pleural fluid. No left-sided pleural fluid or pneumothorax is evident. IMPRESSION: 1. Cardiomegaly with borderline vascular congestion. 2. Small persistent right pleural effusion. 3. Minimal left basilar linear atelectasis. Electronically signed by: Toñito Herr MD (03/13/2018 4:01 PM) [facility]
--- NOTE | 2018-03-13 16:34 | PDOC3 ---
Discharge Summary Visit Information Date of Admission: Mar 11, 2018 Date of Discharge: Mar 13, 2018 Admitting Diagnosis: ICM EF 30%, chronic systolic CHF, CAD, HTN Final Diagnosis ICM, ESRD, NYHA 2, CAD, HTN, weakness, S/P AICD placement Brief Hospital Course Allergies Allergies Coded Allergies Type Severity Reaction Last Updated Verified adhesive tape Allergy Intermediate PAPER TAPE 09/27/17 Yes morphine Allergy Mild Itching 12/16/17 Yes Vital Signs Vital Signs Date Time Temp Pulse Resp B/P (MAP) Pulse Ox O2 Delivery O2 Flow Rate FiO2 03/13/18 15:19 97.4 67 16 151/76 (101) 95 Nasal Cannula 2.0 97.4 Lab Results Laboratory Tests Test 03/11/18 16:45 03/11/18 20:19 03/12/18 04:57 03/12/18 07:22 Glucose (Fingerstick) 277 mg/dL (70-99) 270 mg/dL (70-99) 292 mg/dL (70-99) 223 mg/dL (70-99) Test 03/12/18 16:50 03/12/18 20:36 03/13/18 08:07 03/13/18 11:11 Glucose (Fingerstick) 127 mg/dL (70-99) 212 mg/dL (70-99) 213 mg/dL (70-99) 294 mg/dL (70-99) Laboratory Tests Test 03/12/18 16:50 03/12/18 20:36 03/13/18 08:07 03/13/18 11:11 Glucose (Fingerstick) 127 mg/dL (70-99) 212 mg/dL (70-99) 213 mg/dL (70-99) 294 mg/dL (70-99) Brief Hospital Course Ms. Doyle is a 82 yo female admitted for planned AICD placement for primary prevention of SCD with known ICM with EF of 30%. Cardiac felipe she is compensated and tolerated placement of dual chamber Biotronik AICD. No complications was noted and repeat interrogation revealed normal functioning device. Her left chest incision is intact with steristrips, [employer] and well approximated with no obvious erythema or oozing. However it does have swelling with tenderness particularly to the inferior region of the generator hence chest ultrasound was doen and confirmed with small hematoma around region but no progression since initially noted this am. Dr. Greene was consulted during her stay to arrange for inpt hemodialysis as she was due for it yesterday. She was also noted with weakness and was feeling unsafe to be at home at that time hence OT/PT were consulted to evaluate and treat her. After further evaluation it was recommended donna she meay benefit from SNU but pt has refused as she has her niece to help her out and would rather continue with home health therapy. During her stay her BP has been noted at the labile end and imdur was added to her regimen. Her surgical pain has been controlled and otherwise her vital signsn have been stable. Neurovascular status and ROM to her LUE are intact and sling is in place as well. Pacemaker care has been instructed to her in addition to utilizing ice pack PRN. She has been instructed to call if pain increases and swelling increases or any increased disruption to her LUE ROM. Will continue her ASA but will hold of plavix and potentially get restarted in 2 weeks in time for her wound check. Discharge Information Condition at Discharge: Stable Follow Up: Weeks (2) Disposition/Orders: D/C to Home Scheduled Aspirin (Aspirin) 81 Mg Tab.chew, 81 MG PO DAILY, (Reported) Entered as Reported by: ALEKSANDRA CLEMENT on 03/05/14 1209 Last Action: Continued on 03/11/181809 by ALEX BAIRD Atorvastatin Calcium (Lipitor) 20 Mg Tablet, 20 MG PO HS for FOR CHOLESTEROL, # 30 Ref 0 (Reported) Entered as Reported by: Amie Dougherty on 04/06/14 1551 Last Action: Continued on 03/11/181809 by ALEX BAIRD Carvedilol (Carvedilol) 3.125 Mg Tablet, 6.25 MG PO BIDWMEALS for 30 Days, #120 Ref 6 Prescribed by: BRENDA PABON on 02/17/17 1149 Last Action: Continued on 03/11/181809 by ALEX BAIRD Ergocalciferol (Vitamin D2) (Vitamin D2) 50,000 Unit Capsule, 50,000 UNIT PO WEEKLY for 30 Days, #3 Prescribed by: MALCOM HAWKINS MD on 10/27/17 1211 Last Action: Continued on 03/11/181809 by ALEX BAIRD Folic Acid/Vitamin B Comp W-C (Nephro-Manuel Tablet) 0.8 Mg Tablet, 0.8 MG PO DAILY, (Reported) Entered as Reported by: JONEL MARTIN on 11/22/13218 Last Action: Continued on 03/11/181809 by ALEX BAIRD Furosemide (Lasix) 40 Mg Tablet, 40 MG PO DAILY, (Reported) Entered as Reported by: JONEL MARTIN on 11/22/13218 Last Action: Continued on 03/11/181809 by ALEX BAIRD Hydralazine Hcl (Hydralazine Hcl) 50 Mg Tablet, 50 MG PO BID, (Reported) Entered as Reported by: HAKEEM MATHEWS on 02/01/182152 Last Action: Converted on 03/11/181809 by ALEX BAIRD Insulin Glargine,Hum.rec.anlog (Lantus Solostar) 100 Unit/1 Ml Insuln.pen, 5 UNITS SQ QHS for 30 Days, #1 Prescribed by: BRENDA PABON on 10/08/17 1257 Last Action: Continued on 03/11/181809 by ALEX BAIRD Insulin Lispro (Humalog) 100 Unit/1 Ml Cartridge, 0-100 UNIT SQ TIDAC, (Reported ) Entered as Reported by: ALEX BAIRD on 03/11/181806 Last Taken: Unknown Dose on Unknown Date & Time Last Action: New Order on 03/11/181806 by ALEX BAIRD Isosorbide Mononitrate (Isosorbide Mononitrate Er) 30 Mg Tab.er.24h, 30 MG PO DAILY for 30 Days, #30 Prescribed by: VEDA SPRING on 03/13/18 1636 Levothyroxine Sodium (Synthroid) 75 Mcg Tablet, 75 MCG PO DAILYAC for THYROID SUPPLEMENT, #30 Ref 0 (Reported) Entered as Reported by: Dre Elliott on 11/22/13 0519 Last Action: Continued on 03/11/181809 by ALEX BAIRD Sertraline Hcl (Sertraline Hcl) 25 Mg Tablet, 25 MG PO DAILY for 30 Days, Ref 6 Prescribed by: BRENDA PABON on 12/03/15 0946 Last Action: Converted on 03/11/181809 by ALEX BAIRD Sucralfate (Carafate) 1 Gm Tablet, 1 GM PO TIDAC for 30 Days, #90 Prescribed by: MALCOM HAWKINS MD on 10/27/171210 Last Action: Converted on 03/11/181809 by ALEX BAIRD [Pantoprazole] 40 MG TABLET.DR, 40 MG PO BIDAC for 30 Days Prescribed by: MALCOM HAWKINS MD on 10/27/171210 Last Action: Converted on 03/11/181809 by ALEX BAIRD Scheduled PRN Albuterol Sulfate (Proair Hfa Inhaler) 8.5 Gm Hfa.aer.ad, 1 PUFF INH PRN Q6HRS PRN for SHORTNESS OF BREATH for 30 Days, Ref 0 Prescribed by: MARYCHUY SINGH on 02/04/18921 Last Action: Converted on 03/11/181809 by ALEX BAIRD Trazodone Hcl (Trazodone Hcl) 50 Mg Tablet, 50 MG PO PRN QHS PRN for INSOMNIA for 30 Days, Ref 4 Prescribed by: MARYCHUY SINGH on 02/04/18 0749 Last Action: Continued on 03/11/181809 by ALEX BAIRD Discontinued Medications Clopidogrel Bisulfate (Plavix) 75 Mg Tablet, 75 MG PO DAILY for TO PREVENT BLOOD CLOTS, #30 Ref 0 (Reported) Entered as Reported by: ALEKSANDRA CLEMENT on 03/05/141209 Last Action: Discontinued on 03/11/181806 by ALEX BAIRD Sevelamer Carbonate (Renvela) 800 Mg Tablet, 800 MG PO TIDAC, (Reported) Entered as Reported by: JONEL MARTIN on 11/22/13 0219 Last Action: Discontinued on 03/11/18940 by SAM CLEMENS Patient Instructions Patient Instructions Must know & what to expect after device implant: 1. Your surgical dressing should be removed prior to discharge from the hospital, but allow the steri- strips to fall off naturally. 2. Activity restrictions: DO NOT raise arm above shoulder level, lift anything heavier than a gallon of milk, and no push or pull motions such as vacuuming/lawn mowing, no swinging motions (golf), etc for 4 weeks. 3. It is OK to use a cell phone or other electronic devices just be sure you do not store it in a breast pocket on the side where the device was placed. 4. Device will be interrogated prior to your discharge from the hospital and then every 3 months for defibrillators and every 6 months for pacemakers. You may be asked to have your device checked remotely from home as well, but this will depend on your particular physicians preference. 5. You may remove the arm immobilizer the day after device placement. Wear the arm immobilizer/splint at night (during sleep times) for 2 week to prevent unintended arm movement that can cause lead dislodgement. 6. Do not drive for one week as the task of driving may lead to unintended arm motion that may cause lead dislodgement. The seatbelt will also rub against the incision site & cause irritation. 7. It is our recommendation that you utilize Tylenol at home for pain control. You need to call our office if you are having uncontrollable pain at the incision site. 8. Keep your incision clean and dry. It is OK to shower. DO NOT submerge in bath, pool, or hot tub, until cleared by your doctor, as this could lead to increase risk of infection.. It is OK to use regular soap just do not scrub the incision site. Water spray from shower should not directly hit the incision. Be sure to blot dry not rub. 9. Inspect your incision daily. If you notice any increased redness, swelling , or drainage, or if you start running a fever, call the office immediately. The number is [phone]. 10. For women, if you need to protect against irritation from the bra straps, you can place a piece of gauze over the incision site for cushion. Please be sure to tape it loosely to allow air to the site & remove the gauze when you remove the bra. 11. Be sure to carry your device identification information card in your wallet/purse at all times. 12. It is OK to go through security at the airport with your device, but be sure to let the TSA know prior to proceeding as the security settings change depending on varying factors. Please do whatever is requested by security at that time. 13. Some of the newer devices may be MRI compatible but, currently, the use of these devices is not widespread, so you likely will not be able to have an MRI. Please clarify this with your physician. Special instructions for defibrillator patients: If your device recognizes a rhythm that requires treatment with a shock, you will most likely feel the shock. This is usually not a subtle feeling and it is uncomfortable. Please follow these steps if you receive a shock: Call the office if you receive one shock. Go to the emergency room if you receive two consecutive shocks- please have someone drive you & call 911 if nobody is available- DO NOT drive yourself. Call 911 if you receive more than 2 consecutive shocks. If at any time, you feel lightheaded or dizzy/faint, stop what you are doing & lie down immediately. If you are driving, get to the side of the road quickly, turn your car off & call 911 on your cell phone. DO NOT continue to drive as this may cause an accident that seriously injures yourself &/or others. Call the office at [phone] for any questions or concerns. VEDA SPRING DIGESTER Mar 13, 2018 16:34
[2018-03-13] MEDS ORDERED: ISOS30TA4 PO (16:36)
[2018-03-13 17:31] VITALS: BP 151/76
[2018-03-16] MEDS ORDERED: ERGOCALCIFEROL (VITAMIN D2) 50,000 UNIT CAPSULE. PO SCH (09:00)
== END 2018-03-13 18:30 | disposition home health service (06) | DRG 226 ==
LOC: SURG 08:40 → 2 NORTH 08:54
PROVIDERS: ADMIT Internal Medicine Cardiovascular Disease; ATTEND Internal Medicine Cardiovascular Disease
PROC: 02HL3KZ Insertion of Defibrillator Lead into Left Ventricle, Percutaneous Approach (ICD-10-PCS; 2018-03-11)
PROC: 02HK3KZ Insertion of Defibrillator Lead into Right Ventricle, Percutaneous Approach (ICD-10-PCS; 2018-03-11)
PROC: 5A1D70Z Performance of Urinary Filtration, Intermittent, Less than 6 Hours Per Day (ICD-10-PCS; 2018-03-11)
PROC: 0JH608Z Insertion of Defibrillator Generator into Chest Subcutaneous Tissue and Fascia, Open Approach (ICD-10-PCS; principal; 2018-03-11 10:30)
DX: I25.5 Ischemic cardiomyopathy (principal); N18.6 End stage renal disease; I50.22 Chronic systolic (congestive) heart failure; I13.2 Hypertensive heart and chronic kidney disease with heart failure and with stage 5 chronic kidney disease, or end stage renal disease; E11.22 Type 2 diabetes mellitus with diabetic chronic kidney disease; I25.10 Atherosclerotic heart disease of native coronary artery without angina pectoris; K21.9 Gastro-esophageal reflux disease without esophagitis; E78.5 Hyperlipidemia, unspecified; M19.90 Unspecified osteoarthritis, unspecified site; D64.9 Anemia, unspecified; Z86.73 Personal history of transient ischemic attack (TIA), and cerebral infarction without residual deficits; Z90.710 Acquired absence of both cervix and uterus; Z83.3 Family history of diabetes mellitus; Z88.4 Allergy status to anesthetic agent; Z91.041 Radiographic dye allergy status; Z80.9 Family history of malignant neoplasm, unspecified; Z82.49 Family history of ischemic heart disease and other diseases of the circulatory system; Z95.5 Presence of coronary angioplasty implant and graft
CPT/HCPCS: 33249; 36415; 71045; 71046; 76604; 80048; 82962; 85027; 85610; 93005; C1895; C1898; J0690; J1815; J2001; J2250; J2405; J2704; J3490; J7050; 97116; 97530; J7030

== ENCOUNTER 2018-03-15 15:33 | Inpatient (IN) | payer MEDICARE, OTHER ==
[~2018-03-15] VITALS: Ht 154.9 cm; Wt 74.9 kg
[~2018-03-15 15:33] MED LIST changes: +INSU100C SQ; +ISOS30TA4 PO; -IV RINGERS,LACTATED 1000ML 1,000 ML IV SCH; -LIDOCAINE 1% PF 2 ML VIAL. ID PRN; -ONDANSETRON PF 4 MG/2 ML VIAL. IV PRN; -PROCHLORPERAZINE 10 MG/2 ML VIAL. IV PRN; -fentaNYL PF VIAL 100 MCG/2 ML VIAL IV PRN
--- NOTE | 2018-03-15 16:55 | RAD ---
CHEST AP ONLY History: Pain and swelling around pacemaker. Comparison: March 13, 2018 Heart size: Remains enlarged. Cara/mediastinum: Aorta is calcified and tortuous, similar to previous. Lungs: No new area of focal consolidation or airspace disease. Pleura: Decrease in right pleural effusion. Pneumothorax: None visualized Bones: Regional skeleton appears grossly intact. Miscellaneous: Pacemaker redemonstrated. Right endovascular stent again demonstrated. Impression: Improvement in right pleural effusion. Otherwise stable appearance of the chest. No new infiltrate. Electronically signed by: Osito Ochoa MD (03/15/2018 4:52 PM) [id number]
[2018-03-15] MEDS ORDERED: LACTULOSE 20 GM/30 ML SOLUTION. PO PRN (17:30)
[2018-03-15] MEDS ORDERED: ENOXAPARIN 40 MG/0.4 ML SYRINGE. SQ SCH (17:30)
[2018-03-15] MEDS ORDERED: MAGNESIUM HYDROXIDE 2,400 MG/30 ML ORAL.SUSP. PO PRN (17:30)
[2018-03-15] MEDS ORDERED: ACETAMINOPHEN 325 MG TABLET. PO PRN (17:30)
[2018-03-15] MEDS ORDERED: PROCHLORPERAZINE 25 MG SUPP.RECT. PR PRN (17:30)
[2018-03-15] MEDS ORDERED: ONDANSETRON PF 4 MG/2 ML VIAL. IV PRN (17:30)
[2018-03-15] MEDS ORDERED: CALCIUM CARBONATE 500 MG TAB.CHEW PO PRN (17:30)
[2018-03-15] MEDS ORDERED: oxyCODONE/APAP 5/325 1 TAB TABLET PO PRN (17:30)
[2018-03-15] MEDS ORDERED: MAG HYDROX/ALUMINUM HYD/SIMETH 30 ML ORAL.SUSP PO PRN (17:30)
[2018-03-15] MEDS ORDERED: oxyCODONE IR 5 MG TABLET PO PRN (17:30)
[2018-03-15] MEDS ORDERED: PROCHLORPERAZINE 10 MG/2 ML VIAL. IV PRN (17:30)
[2018-03-15] MEDS ORDERED: fentaNYL PF VIAL 100 MCG/2 ML VIAL IV PRN (17:30)
[2018-03-15] MEDS ORDERED: BISACODYL 10 MG SUPP.RECT. PR PRN (17:30)
--- NOTE | 2018-03-15 17:40 | PDOC1 ---
History and Physical Date of Admission Date of Admission DATE: 03/15/18 TIME: 17:34 Identification/Chief Complaint Chief Complaint Can take care of herself at home Source Source: Caregiver, Chart review, Patient History of Present Illness History of Present Illness 82-year-old female known to me, was just here under cardiology service discharged 2 days ago after having an AICD placed. She had the following diagnoses per cardiology note: 1. Weakness 2. ICM/chronic systolic CHF: EF at 30%. NYHA 2-3. Compensated 3. S/P AICD: Biotronik, no complications. Repeat interrogation revealed normal function 4. CAD: hx of PCI/stent to RCA, clinically stable 5. HTN: SBP mean at 150s. 6. HLP 7. ESRD: HD per nephrology 8. DM2 She comes in bec she cant take care of herself at home She is brought by multiple family members at bedside I'm seeing at the emergency room. The rest of the labs are still rolling. She has a left arm sling with some hematoma or bruising on that left pacer site. She is also dialysis with a right AV fistula and is due dialysis tomorrow. She did not miss any HD session CXR: Impression: Improvement in right pleural effusion. Otherwise stable appearance of the chest. No new infiltrate. Past Medical History Cardiovascular: CAD, CHF, HTN, Other Pulmonary: Other CENTRAL NERVOUS SYSTEM: TIA GI: GERD Heme/Onc: Anemia NOS, Cancer Hepatobiliary: No pertinent hx Psych: No pertinent hx Rheumatologic: No pertinent hx Infectious disease: No pertinent hx Renal/: Chronic renal failure Endocrine: Diabetes Past Surgical History Past Surgical History: Appendectomy, Cholecystectomy, Cataract Removal, Mastectomy, Hysterectomy, Other Family History Family History: Cancer, Diabetes, Heart Disease Social History Smoke: No ALCOHOL: none Drugs: None Current Medications Current Medications Current Medications Ondansetron HCl (Zofran) 4 mg PRN Q6HRS PRN IV NAUSEA/VOMITING; Start at 17:30; Status UNV Prochlorperazine Edisylate (Compazine) 10 mg PRN Q6HRS PRN IV NAUSEA/VOMITING; Start 03/15/18 at 17:30; Status UNV Prochlorperazine (Compazine) 25 mg PRN Q12HR PRN [place] NAUSEA/VOMITING; Start at 17:30; Status UNV Al Hydroxide/Mg Hydroxide (Mylanta Plus Xs) 30 ml PRN Q3HRS PRN PO HEARTBURN / GAS; Start 03/15/18 at 17:30; Status UNV Calcium Carbonate/ Glycine (Tums) 500 mg PRN Q3HRS PRN PO UPSET STOMACH; Start 03/15/18 at 17:30; Status UNV Oxycodone HCl (Roxicodone) 5 mg PRN Q3HRS PRN PO BREAKTHROUGH PAIN; Start at 17:30; Status UNV Oxycodone/ Acetaminophen (Percocet 5/325) 1 tab PRN Q4HRS PRN PO MILD PAIN, 1ST CHOICE; Start 03/15/18 at 17:30; Status UNV Active Scripts Active Isosorbide Mononitrate Er (Isosorbide Mononitrate) 30 Mg Tab.er.24h 30 Mg PO DAILY 30 Days Proair Hfa Inhaler (Albuterol Sulfate) 8.5 Gm Hfa.aer.ad 1 Puff INH PRN Q6HRS PRN 30 Days Trazodone Hcl 50 Mg Tablet 50 Mg PO PRN QHS PRN 30 Days Carafate (Sucralfate) 1 Gm Tablet 1 Gm PO TIDAC 30 Days Vitamin D2 (Ergocalciferol (Vitamin D2)) 50,000 Unit Capsule 50,000 Unit PO WEEKLY 30 Days [Pantoprazole] 40 MG Tablet.dr 40 Mg PO BIDAC 30 Days Lantus Solostar (Insulin Glargine,Hum.rec.anlog) 100 Unit/1 Ml Insuln.pen 5 Units SQ QHS 30 Days Carvedilol 3.125 Mg Tablet 6.25 Mg PO BIDWMEALS 30 Days Sertraline Hcl 25 Mg Tablet 25 Mg PO DAILY 30 Days Reported Humalog (Insulin Lispro) 100 Unit/1 Ml Cartridge 0-100 Unit SQ TIDAC Hydralazine Hcl 50 Mg Tablet 50 Mg PO BID Lipitor (Atorvastatin Calcium) 20 Mg Tablet 20 Mg PO HS Aspirin 81 Mg Tab.chew 81 Mg PO DAILY Synthroid (Levothyroxine Sodium) 75 Mcg Tablet 75 Mcg PO DAILYAC Nephro-Manuel Tablet (Folic Acid/Vitamin B Comp W-C) 0.8 Mg Tablet 0.8 Mg PO DAILY Lasix (Furosemide) 40 Mg Tablet 40 Mg PO DAILY Allergies Allergies: Coded Allergies: adhesive tape (Verified Allergy, Intermediate, PAPER TAPE, 09/27/17) morphine (Verified Allergy, Mild, Itching, 12/16/17) ROS Review of System As per history of present illness, the rest of ROS 14 point negative Physical Exam General: Alert, Oriented X3, Cooperative, No acute distress HEENT: Atraumatic, PERRLA Lungs: Clear to auscultation, Normal air movement Heart: S1S2, RRR, no thrills, no rubs, no gallops, other (has a left pacer site with sutures intact and some mild swelling and tenderness to touch) Cardiovascular: S1, S2 Breasts: Normal, Rt breast nml w/o mass, Lt breast nml w/o mass, Nipples normal Rectal Exam: not examined PELVIC: Nml ext genitalia Extremities: No clubbing, No cyanosis, No edema, Normal pulses, No tenderness/ swelling, Other (she has AV fistula in the right arm with a probable bruit and good dorsalis pedis) Neuro: Normal gait, Normal speech, Strength at 5/5 X4 ext, Normal tone, Sensation intact, Cranial nerves 3-12 NL, Reflexes 2+ Psych/Mental Status: Mental status NL, Mood NL Vitals Vitals Vital Signs Date Time Temp Pulse Resp B/P (MAP) Pulse Ox O2 Delivery O2 Flow Rate FiO2 03/15/18 16:15 98.6 72 16 170/74 (106) 97 Room Air 98.6 VTE Prophylaxis Ordered VTE Prophylaxis Devices: Yes VTE Pharmacological Prophylaxi: Yes Assessment/Plan Assessment/Plan Failure to thrive/self-neglect at home Generalized weakness-agreeable to SNU or rehabilitation-she actually wants it Recent pacer placement, by cards for . ICM/chronic systolic CHF: EF at 30%. NYHA 2-3. S/P AICD: Biotronik, n CAD: hx of PCI/stent to RCA, clinically stable HTN: HLP ESRD TTHSAT - HD per nephrology DM2 - on insulin, controlled PLAN: Admit, consult cardiology - she is due follow-up as next week and requests to be seen while here The left pacer site looks a little bit swollen and mildly tender but chest x- ray looks okay Consult renal for dialysis, she is due tomorrow Home meds I have reconciled PT OT Social work - wants rehab/snu SSI high dose Fall risk REquires signif assistance NEeds to lose weight Seen at ER MARYCHUY SINGH MD Mar 15, 2018 17:39
[2018-03-15] MEDS ORDERED: NON FORMULARY ITEM (Albuterol Sulfate (Proair Hfa Inhaler) 1 PUFF) INH PRN (17:45)
[2018-03-15] MEDS ORDERED: DEXTROSE 50% 25 GM / 50ML DISP.SYRIN. IV PRN (17:45)
[2018-03-15] MEDS ORDERED: traZODone 50 MG TABLET. PO PRN (17:45)
[2018-03-15 17:47] LABS: BASO # 0.1 x10^3/uL (0.0-0.2); BASO % 1 % (0-3); EOS # 0.1 x10^3/uL (0.0-0.7); EOS % 1 % (0-3); HEMATOCRIT 28.8 % (36.0-47.0); HEMOGLOBIN 9.6 g/dL (12.0-15.5); LYMPH # 0.4 x10^3/uL (1.0-4.8); LYMPH % 4 % (24-48); MEAN CORPUSCULAR HEMOGLOBIN 33 pg (25-35); MEAN CORPUSCULAR HGB CONC 33 g/dL (31-37); MEAN CORPUSCULAR VOLUME 100 fL (79-100); MONO # 0.7 x10^3/uL (0.0-1.1); MONO % 8 % (0-9); NEUT # 7.3 x10^3uL (1.8-7.7); NEUT % 85 % (31-73); PLATELET COUNT 106 x10^3/uL (140-400); RED BLOOD COUNT 2.87 x10^6/uL (3.50-5.40); RED CELL DISTRIBUTION WIDTH 15.9 % (11.5-14.5); WHITE BLOOD COUNT 8.6 x10^3/uL (4.0-11.0)
[2018-03-15 18:01] LABS: CALCIUM 8.3 mg/dL (8.5-10.1); CREATININE 4.4 mg/dL (0.6-1.0); GFR 11.6; POTASSIUM 4.5 mmol/L (3.5-5.1); PROTHROMBIN TIME PATIENT 15.1 SEC (11.7-14.0)
[2018-03-15 18:07] LABS: ALBUMIN 3.1 g/dL (3.4-5.0); DIRECT BILIRUBIN 0.3 mg/dL (0.0-0.2); TOTAL BILIRUBIN 0.7 mg/dL (0.2-1.0); TOTAL PROTEIN 6.7 g/dL (6.4-8.2)
--- NOTE | 2018-03-15 18:20 | PHYS DOC ---
Past Medical History Past Medical History: Cancer, CHF, CVA, Diabetes-Type II, GERD, Hypertension, Hypothyroid, Renal Failure, TIA, Additional Disease, Other Additional Past Medical Histor: Breast CA Past Surgical History: Cancer Surgery, Cholecystectomy, Hysterectomy, Other Additional Past Surgical Histo: Graft RUE; bilateral mastectomy; thyroidectomy ; hernia Alcohol Use: None Drug Use: None Adult General Chief Complaint Chief Complaint: OTHER COMPLAINTS HPI HPI 82-year-old female presenting to the emergency department today with chest pain. She recently had a pacemaker placed here at our facility 2 days ago. She denies any fevers or chills. She denies any cough. The pain is sharp shooting pain worse with deep breaths. No alleviating or exacerbating factors. Review of systems is negative for abdominal pain nausea vomiting fevers or chills. All other review of systems is negative unless otherwise noted in history of present illness. ED course: 82-year-old status post pacemaker placement 2 days ago presenting with chest pain. EKG shows sinus rhythm with a regular rate. ST segments congruent. Not suggestive of ACS. Chest x-ray unremarkable for acute pathology. Blood work obtained which shows esrd. Patient plans on dialyzing tomorrow. We will admit the patient and Dr. Woo for further evaluation treatment and care. Review of Systems Review of Systems SEE ABOVE. Current Medications Current Medications Current Medications Medications (Trade) Dose Ordered Sig/Sahil Start Time Stop Time Status Last Admin Dose Admin Acetaminophen (Tylenol) 650 mg PRN Q6HRS PRN 03/15/18 17:30 Al Hydroxide/Mg Hydroxide (Mylanta Plus Xs) 30 ml PRN Q3HRS PRN 03/15/18 17:30 UNV Aspirin (Children'S Aspirin) 81 mg DAILY 03/16/18 09:00 UNV Atorvastatin Calcium (Lipitor) 20 mg HS 03/15/18 21:00 UNV Bisacodyl (Dulcolax Supp) 10 mg PRN DAILY PRN 03/15/18 17:30 Calcium Carbonate/ Glycine (Tums) 500 mg PRN Q3HRS PRN 03/15/18 17:30 Carvedilol (Coreg) 6.25 mg BIDWMEALS 03/16/18 08:00 UNV Dextrose (Dextrose 50%-Water Syringe) 12.5 gm PRN Q15MIN PRN 10/26/18 17:45 Diphenhydramine HCl (Benadryl) 25 mg PRN QHS PRN 03/15/18 17:30 Docusate Sodium (Colace) 100 mg BID 03/15/18 21:00 Enoxaparin Sodium (Lovenox 40mg Syringe) 40 mg Q24H 03/15/18 17:30 UNV Ergocalciferol (Vitamin D2) 50,000 unit WEEKLY 03/22/18 09:00 UNV Fentanyl Citrate (Fentanyl 2ml Vial) 50 mcg PRN Q2HR PRN 03/15/18 17:30 Furosemide (Lasix) 40 mg DAILY 03/16/18 09:00 UNV Insulin Glargine (Lantus) 5 units QHS 03/15/18 21:00 UNV Insulin Human Lispro (HumaLOG) 0-9 UNITS TIDWMEALS 03/16/18 08:00 UNV Isosorbide Mononitrate (Imdur) 30 mg DAILY 03/16/18 09:00 UNV Lactulose (Lactulose) 20 gm PRN Q12HR PRN 03/15/18 17:30 Levothyroxine Sodium (Synthroid) 75 mcg DAILYAC 03/16/18 07:30 Magnesium Hydroxide (Milk Of Magnesia) 2,400 mg PRN Q12HR PRN 03/15/18 17:30 Cancel Non-Formulary Medication (Albuterol Sulfate (Proair Hfa Inhaler)) 1 puff PRN Q6HRS PRN 03/15/18 17:45 UNV Non-Formulary Medication (Hydralazine Hcl ) 50 mg BID 03/15/18 21:00 UNV Non-Formulary Medication (Sertraline Hcl ) 25 mg DAILY 03/16/18 09:00 UNV Non-Formulary Medication (Sucralfate (Carafate)) 1 gm TIDAC 03/16/18 07:30 UNV Non-Formulary Medication ([Pantoprazole] ) 40 mg BIDAC 03/16/18 07:30 UNV Ondansetron HCl (Zofran) 4 mg PRN Q6HRS PRN 03/15/18 17:30 Oxycodone HCl (Roxicodone) 5 mg PRN Q3HRS PRN 03/15/18 17:30 Oxycodone/ Acetaminophen (Percocet 5/325) 1 tab PRN Q4HRS PRN 03/15/18 17:30 Prochlorperazine (Compazine) 25 mg PRN Q12HR PRN 03/15/18 17:30 UNV Prochlorperazine Edisylate (Compazine) 10 mg PRN Q6HRS PRN 03/15/18 17:30 UNV Tramadol HCl (Ultram) 50 mg PRN Q6HRS PRN 03/15/18 17:30 UNV Trazodone HCl (Desyrel) 50 mg PRN QHS PRN 03/15/18 17:45 UNV Vitamin B Complex/ Vitamin C (Johana-Manuel) 1 tab DAILY 03/16/18 09:00 Allergies Allergies Allergies Coded Allergies Type Severity Reaction Last Updated Verified adhesive tape Allergy Intermediate PAPER TAPE 09/27/17 Yes morphine Allergy Mild Itching 03/15/18 Yes Physical Exam Physical Exam SEE ABOVE Constitutional: Well developed, well nourished, no acute distress, non-toxic appearance. [] HENT: Normocephalic, atraumatic, bilateral external ears normal, oropharynx moist, no oral exudates, nose normal. [] Eyes: PERRLA, EOMI, conjunctiva normal, no discharge. [] Neck: Normal range of motion, no tenderness, supple, no stridor. [] Cardiovascular:Heart rate regular rhythm, no murmur [] Lungs & Thorax: Bilateral breath sounds clear to auscultation []. The chest wall has swelling without erythema. Mild bruising present. The patient's wound is clean dry and intact. No drainage. Abdomen: Bowel sounds normal, soft, no tenderness, no masses, no pulsatile masses. [] Skin: Warm, dry, no erythema, no rash. [] Back: No tenderness, no CVA tenderness. [] Extremities: No tenderness, no cyanosis, no clubbing, ROM intact, no edema. [] Neurologic: Alert and oriented X 3, normal motor function, normal sensory function, no focal deficits noted. [] Psychologic: Affect normal, judgement normal, mood normal. [] Current Patient Data Vital Signs Vital Signs Date Time Temp Pulse Resp B/P (MAP) Pulse Ox O2 Delivery O2 Flow Rate FiO2 03/15/18 16:15 98.6 72 16 170/74 (106) 97 Room Air 98.6 Lab Values Laboratory Tests Test 03/15/18 17:40 White Blood Count 8.6 x10^3/uL (4.0-11.0) Red Blood Count 2.87 x10^6/uL (3.50-5.40) L Hemoglobin 9.6 g/dL (12.0-15.5) L Hematocrit 28.8 % (36.0-47.0) L Mean Corpuscular Volume 100 fL (79-100) Mean Corpuscular Hemoglobin 33 pg (25-35) Mean Corpuscular Hemoglobin Concent 33 g/dL (31-37) Red Cell Distribution Width 15.9 % (11.5-14.5) H Platelet Count 106 x10^3/uL (140-400) L Neutrophils (%) (Auto) 85 % (31-73) H Lymphocytes (%) (Auto) 4 % (24-48) L Monocytes (%) (Auto) 8 % (0-9) Eosinophils (%) (Auto) 1 % (0-3) Basophils (%) (Auto) 1 % (0-3) Neutrophils # (Auto) 7.3 x10^3uL (1.8-7.7) Lymphocytes # (Auto) 0.4 x10^3/uL (1.0-4.8) L Monocytes # (Auto) 0.7 x10^3/uL (0.0-1.1) Eosinophils # (Auto) 0.1 x10^3/uL (0.0-0.7) Basophils # (Auto) 0.1 x10^3/uL (0.0-0.2) Prothrombin Time 15.1 SEC (11.7-14.0) H Prothrombin Time INR 1.2 (0.8-1.1) H PTT 31 SEC (24-38) Sodium Level 135 mmol/L (136-145) L Potassium Level 4.5 mmol/L (3.5-5.1) Chloride Level 100 mmol/L (98-107) Carbon Dioxide Level 22 mmol/L (21-32) Anion Gap 13 (6-14) Blood Urea Nitrogen 39 mg/dL (7-20) H Creatinine 4.4 mg/dL (0.6-1.0) H Estimated GFR (Cockcroft-Gault) 11.6 Glucose Level 300 mg/dL (70-99) H Calcium Level 8.3 mg/dL (8.5-10.1) L Total Bilirubin 0.7 mg/dL (0.2-1.0) Direct Bilirubin 0.3 mg/dL (0.0-0.2) H Aspartate Amino Transferase (AST) 23 U/L (15-37) Alanine Aminotransferase (ALT) 15 U/L (14-59) Alkaline Phosphatase 129 U/L (46-116) H Total Protein 6.7 g/dL (6.4-8.2) Albumin 3.1 g/dL (3.4-5.0) L Lipase 157 U/L (73-393) Laboratory Tests 03/15/18 17:40 Laboratory Tests 03/15/18 17:40 EKG EKG [] Radiology/Procedures Radiology/Procedures [] Course & Med Decision Making Course & Med Decision Making Pertinent Labs and Imaging studies reviewed. (See chart for details) [] Dragon Disclaimer Dragon Disclaimer This electronic medical record was generated, in whole or in part, using a voice recognition dictation system. Departure Departure Impression: Primary Impression: Chest pain Disposition: ADMITTED INPATIENT Admitting Physician: Edith Woo Condition: STABLE Referrals: CHAPARRITA CALDERON MD (PCP) NAA JAIN MD Mar 15, 2018 18:20
[2018-03-15] MEDS ORDERED: ALBUTEROL SULFATE 2.5 MG/3 ML NEBU. NEB PRN (19:30)
[2018-03-15 20:00] VITALS: BP 121/97
[2018-03-15] MEDS: ATORVASTATIN CALCIUM 20 MG TABLET PO SCH (21:56)
[2018-03-15] MEDS: DOCUSATE SODIUM 100 MG CAPSULE. PO SCH (21:56)
[2018-03-15] MEDS: HEPARIN for SUB-Q USE 5,000 UNIT/ML VIAL. SQ SCH (21:57)
[2018-03-15] MEDS: INSULIN GLARGINE 300 UNITS/3 ML INSULN.PEN. SQ SCH (21:59)
[2018-03-15 22:51] VITALS: BP 154/55
[2018-03-15] MEDS: diphenhydrAMINE HCL 25 MG CAPSULE PO PRN (23:54)
[2018-03-16 03:30] VITALS: BP 156/57
[2018-03-16] MEDS: HEPARIN for SUB-Q USE 5,000 UNIT/ML VIAL. SQ SCH ×3 (04:09→22:00)
[2018-03-16] MEDS ORDERED: SUCRALFATE 1 GM PO SCH (07:30)
[2018-03-16 07:39] VITALS: BP 180/58
[2018-03-16] MEDS: LEVOTHYROXINE 75 MCG TABLET PO SCH (07:43)
[2018-03-16] MEDS: PANTOPRAZOLE 40 MG TABLET.DR. PO SCH ×2 (07:43→17:59)
[2018-03-16] MEDS: DOCUSATE SODIUM 100 MG CAPSULE. PO SCH ×2 (07:43→22:17)
[2018-03-16] MEDS: CARVEDILOL 6.25 MG TABLET. PO SCH ×2 (08:00→17:59)
[2018-03-16] MEDS: INSULIN LISPRO 300 UNITS/3 ML INSULN.PEN. SQ SCH ×3 (08:20→17:00)
[2018-03-16] MEDS ORDERED: ERGOCALCIFEROL (VITAMIN D2) 50,000 UNIT CAPSULE. PO SCH (09:00)
--- NOTE | 2018-03-16 09:17 | EKG ---
[facility] [address] [place] [address] Test Date: 2018-03-15 Test Time: 16:15:29 Pat Name: BRANT HALL Department: Room: 266 1 Gender: F Doctor Of Naprapathy: : 1935 Requested By: NAA JAIN Order Number: [id number] Reading MD: Bam Shaffer MD Measurements Intervals [place] Rate: 73 P: 90 ID: [id number] QRS: -12 QRSD: 84 T: 149 QT: 396 QTc: 440 Interpretive Statements SINUS RHYTHM NON-SPECIFIC ST/T CHANGES Electronically Signed On 03-18-2018 11:27:51 CDT by Bam Shaffer MD
[2018-03-16 09:18] LABS: BASO # 0.1 x10^3/uL (0.0-0.2); BASO % 1 % (0-3); EOS # 0.1 x10^3/uL (0.0-0.7); EOS % 1 % (0-3); HEMATOCRIT 29.9 % (36.0-47.0); HEMOGLOBIN 10.1 g/dL (12.0-15.5); LYMPH # 0.4 x10^3/uL (1.0-4.8); LYMPH % 6 % (24-48); MEAN CORPUSCULAR HEMOGLOBIN 34 pg (25-35); MEAN CORPUSCULAR HGB CONC 34 g/dL (31-37); MEAN CORPUSCULAR VOLUME 100 fL (79-100); MONO # 0.7 x10^3/uL (0.0-1.1); MONO % 9 % (0-9); NEUT # 5.8 x10^3uL (1.8-7.7); NEUT % 83 % (31-73); PLATELET COUNT 119 x10^3/uL (140-400); RED CELL DISTRIBUTION WIDTH 15.8 % (11.5-14.5)
[2018-03-16 09:30] LABS: CALCIUM 8.2 mg/dL (8.5-10.1); POTASSIUM 4.7 mmol/L (3.5-5.1)
--- NOTE | 2018-03-16 10:42 | PDOC2 ---
CONSULT Date of Consult Date of Consult DATE: 03/16/18 TIME: 10:37 Reason for Consult Reason for Consult: ESRD Referring Physician Referring Physician: Dr. jacobo Identification/Chief Complaint Chief Complaint Failure to Thrive Source Source: Chart review, Patient History of Present Illness Reason for Visit: 82-year-old female was here recently under cardiology service discharged 2 days ago after having an AICD placed. She comes in [facility] she cant take care of herself at home She is brought by multiple family members at bedside in ER She has a left arm sling with some hematoma or bruising on that left pacer site. Past Medical History Cardiovascular: CAD, CHF, HTN, Other Pulmonary: Other CENTRAL NERVOUS SYSTEM: TIA GI: GERD Heme/Onc: Anemia NOS, Cancer Hepatobiliary: No pertinent hx Psych: No pertinent hx Rheumatologic: No pertinent hx Infectious disease: No pertinent hx Renal/: Chronic renal failure Endocrine: Diabetes Past Surgical History Past Surgical History: Appendectomy, Cholecystectomy, Cataract Removal, Mastectomy, Hysterectomy, Other Family History Family History: Cancer, Diabetes, Heart Disease Social History No ALCOHOL: none Drugs: None Lives: Snf Current Problem List Problem List Problems Medical Problems: (1) Chest pain Status: Acute Current Medications Current Medications Current Medications Ondansetron HCl (Zofran) 4 mg PRN Q6HRS PRN IV NAUSEA/VOMITING 1ST CHOICE; Start 03/15/18 at 17:30 Prochlorperazine Edisylate (Compazine) 10 mg PRN Q6HRS PRN IV NAUSEA/VOMITING 2ND CHOICE; Start 03/15/18 at 17:30 Prochlorperazine (Compazine) 25 mg PRN Q12HR PRN OR NAUSEA/VOMITING; Start at 17:30 Al Hydroxide/Mg Hydroxide (Mylanta Plus Xs) 30 ml PRN Q3HRS PRN PO HEARTBURN / GAS; Start 03/15/18 at 17:30; Status UNV Calcium Carbonate/ Glycine (Tums) 500 mg PRN Q3HRS PRN PO UPSET STOMACH; Start 03/15/18 at 17:30 Oxycodone HCl (Roxicodone) 5 mg PRN Q3HRS PRN PO BREAKTHROUGH PAIN, SEE COMMENT ; Start 03/15/18 at 17:30 Oxycodone/ Acetaminophen (Percocet 5/325) 1 tab PRN Q4HRS PRN PO MILD PAIN, 1ST CHOICE; Start 03/15/18 at 17:30 Acetaminophen (Tylenol) 650 mg PRN Q6HRS PRN PO Headaches, Temp > 101.5F; Start 03/15/18 at 17:30 Docusate Sodium (Colace) 100 mg BID PO Last administered on 03/16/18at 07:43; Start 03/15/18 at 21:00 Magnesium Hydroxide (Milk Of Magnesia) 2,400 mg PRN Q12HR PRN PO CONSTIPATION 1ST CHOICE; Start 03/15/18 at 17:30; Status Cancel Lactulose (Lactulose) 20 gm PRN Q12HR PRN PO CONSTIPATION 2ND CHOICE; Start at 17:30 Bisacodyl (Dulcolax Supp) 10 mg PRN DAILY PRN OR CONSTIPATION; Start 03/15/18 at 17:30 Enoxaparin Sodium (Lovenox 40mg Syringe) 40 mg Q24H SQ ; Start 03/15/18 at 17: 30; Status UNV Fentanyl Citrate (Fentanyl 2ml Vial) 50 mcg PRN Q2HR PRN IV PAIN; Start at 17:30 Tramadol HCl (Ultram) 50 mg PRN Q6HRS PRN PO PAIN MOD TO SEVERE 1ST CHOICE; Start 03/15/18 at 17:30 Diphenhydramine HCl (Benadryl) 25 mg PRN QHS PRN PO INSOMNIA 1ST CHOICE Last administered on 03/15/18at 23:54; Start 03/15/18 at 17:30 Aspirin (Children'S Aspirin) 81 mg DAILY PO ; Start 03/16/18 at 09:00 Atorvastatin Calcium (Lipitor) 20 mg HS PO Last administered on 03/15/18at 21: 56; Start 03/15/18 at 21:00 Carvedilol (Coreg) 6.25 mg BIDWMEALS PO ; Start 03/16/18 at 08:00 Ergocalciferol (Vitamin D2) 50,000 unit WEEKLY PO ; Start 03/16/18 at 09:00 Vitamin B Complex/ Vitamin C (Johana-Manuel) 1 tab DAILY PO ; Start 03/16/18 at 09: 00 Furosemide (Lasix) 40 mg DAILY PO ; Start 03/16/18 at 09:00 Insulin Glargine (Lantus) 5 units QHS SQ Last administered on 03/15/18at 21:59 ; Start 03/15/18 at 21:00 Isosorbide Mononitrate (Imdur) 30 mg DAILY PO ; Start 03/16/18 at 09:00 Levothyroxine Sodium (Synthroid) 75 mcg DAILYAC PO Last administered on at 07:43; Start 03/16/18 at 07:30 Trazodone HCl (Desyrel) 50 mg PRN QHS PRN PO INSOMNIA 2ND CHOICE; Start at 17:45 Non-Formulary Medication (Albuterol Sulfate (Proair Hfa Inhaler)) 1 puff PRN Q6HRS PRN INH SHORTNESS OF BREATH; Start 03/15/18 at 17:45; Status UNV Hydralazine HCl (Apresoline) 50 mg BID PO Last administered on 03/15/18at 21:56 ; Start 03/15/18 at 21:00 Sertraline HCl (Zoloft) 25 mg DAILY PO ; Start 03/16/18 at 09:00 Non-Formulary Medication (Sucralfate (Carafate)) 1 gm TIDAC PO ; Start at 07:30; Stop 03/16/18 at 07:30; Status DC Pantoprazole Sodium (Protonix) 40 mg BIDAC PO Last administered on 03/16/18at 07:43; Start 03/16/18 at 07:30 Insulin Human Lispro (HumaLOG) 0-9 UNITS TIDWMEALS SQ Last administered on at 08:20; Start 03/16/18 at 08:00 Dextrose (Dextrose 50%-Water Syringe) 12.5 gm PRN Q15MIN PRN IV SEE COMMENTS; Start 03/15/18 at 17:45 Heparin Sodium (Porcine) (Heparin Sodium) 5,000 unit Q8HRS SQ ; Start 03/15/18 at 22:00 Albuterol Sulfate (Ventolin Neb Soln) 2.5 mg PRN Q6HRS PRN NEB SHORTNESS OF BREATH; Start 03/15/18 at 19:30 Active Scripts Active Isosorbide Mononitrate Er (Isosorbide Mononitrate) 30 Mg Tab.er.24h 30 Mg PO DAILY 30 Days Proair Hfa Inhaler (Albuterol Sulfate) 8.5 Gm Hfa.aer.ad 1 Puff INH PRN Q6HRS PRN 30 Days Trazodone Hcl 50 Mg Tablet 50 Mg PO PRN QHS PRN 30 Days Carafate (Sucralfate) 1 Gm Tablet 1 Gm PO TIDAC 30 Days Vitamin D2 (Ergocalciferol (Vitamin D2)) 50,000 Unit Capsule 50,000 Unit PO WEEKLY 30 Days [Pantoprazole] 40 MG Tablet.dr 40 Mg PO BIDAC 30 Days Lantus Solostar (Insulin Glargine,Hum.rec.anlog) 100 Unit/1 Ml Insuln.pen 5 Units SQ QHS 30 Days Carvedilol 3.125 Mg Tablet 6.25 Mg PO BIDWMEALS 30 Days Sertraline Hcl 25 Mg Tablet 25 Mg PO DAILY 30 Days Reported Humalog (Insulin Lispro) 100 Unit/1 Ml Cartridge 0-100 Unit SQ TIDAC Hydralazine Hcl 50 Mg Tablet 50 Mg PO BID Lipitor (Atorvastatin Calcium) 20 Mg Tablet 20 Mg PO HS Aspirin 81 Mg Tab.chew 81 Mg PO DAILY Synthroid (Levothyroxine Sodium) 75 Mcg Tablet 75 Mcg PO DAILYAC Nephro-Manuel Tablet (Folic Acid/Vitamin B Comp W-C) 0.8 Mg Tablet 0.8 Mg PO DAILY Lasix (Furosemide) 40 Mg Tablet 40 Mg PO DAILY Allergies Allergies: Coded Allergies: adhesive tape (Verified Allergy, Intermediate, PAPER TAPE, 09/27/17) morphine (Verified Allergy, Mild, Itching, 03/15/18) Received oxycodone 10/2017 with no documented adverse effects and received tramadol 11/2017 with no documented adverse effects ROS Review of System As per HPI Physical Exam Physical Exam General: , No acute distress HEENT: PERRLA Lungs: Clear to auscultation, Normal air movement Heart: S1S2, RRR,has a left pacer site with sutures intact and some mild swelling and tenderness to touch) Extremities: No edema, , AV fistula in the right arm Neuro: grossly n Psych/Mental Status: Mental status NL, Mood NL - No persaud Skin No rash Vital Signs Vital Signs Date Time Temp Pulse Resp B/P (MAP) Pulse Ox O2 Delivery O2 Flow Rate FiO2 03/16/18 07:50 Room Air 03/16/18 07:39 96.9 68 18 180/58 (98) 99 96.9 Assessment & Plan ESRD- On HD TTS Didn't miss any treatments dialysis today as Ordered - as per her schedule She reports she gets Volume Overloaded if she misses treatment Hyponatremia- Mild Cardiac, HD today Failure to thrive/self-neglect at home Generalized weakness-agreeable to SNU or rehabilitation-she actually wants it ICM/chronic systolic CHF: EF at 30%. 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 Labs Laboratory Tests Test 03/15/18 17:40 03/15/18 21:55 03/16/18 07:34 03/16/18 08:40 White Blood Count 8.6 x10^3/uL (4.0-11.0) 7.0 x10^3/uL (4.0-11.0) Red Blood Count 2.87 x10^6/uL (3.50-5.40) 3.00 x10^6/uL (3.50-5.40) Hemoglobin 9.6 g/dL (12.0-15.5) 10.1 g/dL (12.0-15.5) Hematocrit 28.8 % (36.0-47.0) 29.9 % (36.0-47.0) Mean Corpuscular Volume 100 fL (79-100) 100 fL (79-100) Mean Corpuscular Hemoglobin 33 pg (25-35) 34 pg (25-35) Mean Corpuscular Hemoglobin Concent 33 g/dL (31-37) 34 g/dL (31-37) Red Cell Distribution Width 15.9 % (11.5-14.5) 15.8 % (11.5-14.5) Platelet Count 106 x10^3/uL (140-400) 119 x10^3/uL (140-400) Neutrophils (%) (Auto) 85 % (31-73) 83 % (31-73) Lymphocytes (%) (Auto) 4 % (24-48) 6 % (24-48) Monocytes (%) (Auto) 8 % (0-9) 9 % (0-9) Eosinophils (%) (Auto) 1 % (0-3) 1 % (0-3) Basophils (%) (Auto) 1 % (0-3) 1 % (0-3) Neutrophils # (Auto) 7.3 x10^3uL (1.8-7.7) 5.8 x10^3uL (1.8-7.7) Lymphocytes # (Auto) 0.4 x10^3/uL (1.0-4.8) 0.4 x10^3/uL (1.0-4.8) Monocytes # (Auto) 0.7 x10^3/uL (0.0-1.1) 0.7 x10^3/uL (0.0-1.1) Eosinophils # (Auto) 0.1 x10^3/uL (0.0-0.7) 0.1 x10^3/uL (0.0-0.7) Basophils # (Auto) 0.1 x10^3/uL (0.0-0.2) 0.1 x10^3/uL (0.0-0.2) Prothrombin Time 15.1 SEC (11.7-14.0) Prothromb Time International Ratio 1.2 (0.8-1.1) Activated Partial Thromboplast Time 31 SEC (24-38) Sodium Level 135 mmol/L (136-145) 133 mmol/L (136-145) Potassium Level 4.5 mmol/L (3.5-5.1) 4.7 mmol/L (3.5-5.1) Chloride Level 100 mmol/L (98-107) 101 mmol/L (98-107) Carbon Dioxide Level 22 mmol/L (21-32) 21 mmol/L (21-32) Anion Gap 13 (6-14) 11 (6-14) Blood Urea Nitrogen 39 mg/dL (7-20) 44 mg/dL (7-20) Creatinine 4.4 mg/dL (0.6-1.0) 5.0 mg/dL (0.6-1.0) Estimated GFR (Cockcroft-Gault) 11.6 10.0 Glucose Level 300 mg/dL (70-99) 234 mg/dL (70-99) Calcium Level 8.3 mg/dL (8.5-10.1) 8.2 mg/dL (8.5-10.1) Total Bilirubin 0.7 mg/dL (0.2-1.0) Direct Bilirubin 0.3 mg/dL (0.0-0.2) Aspartate Amino Transf (AST/SGOT) 23 U/L (15-37) Alanine Aminotransferase (ALT/SGPT) 15 U/L (14-59) Alkaline Phosphatase 129 U/L (46-116) Troponin I Quantitative 0.056 ng/mL (0.000-0.055) ZZ-Tiz-J-Type Natriuretic Peptide > 34735 pg/mL (0-449) Total Protein 6.7 g/dL (6.4-8.2) Albumin 3.1 g/dL (3.4-5.0) Lipase 157 U/L (73-393) Glucose (Fingerstick) 304 mg/dL (70-99) 216 mg/dL (70-99) Laboratory Tests Test 03/15/18 17:40 03/15/18 21:55 03/16/18 07:34 03/16/18 08:40 White Blood Count 8.6 x10^3/uL (4.0-11.0) 7.0 x10^3/uL (4.0-11.0) Red Blood Count 2.87 x10^6/uL (3.50-5.40) 3.00 x10^6/uL (3.50-5.40) Hemoglobin 9.6 g/dL (12.0-15.5) 10.1 g/dL (12.0-15.5) Hematocrit 28.8 % (36.0-47.0) 29.9 % (36.0-47.0) Mean Corpuscular Volume 100 fL (79-100) 100 fL (79-100) Mean Corpuscular Hemoglobin 33 pg (25-35) 34 pg (25-35) Mean Corpuscular Hemoglobin Concent 33 g/dL (31-37) 34 g/dL (31-37) Red Cell Distribution Width 15.9 % (11.5-14.5) 15.8 % (11.5-14.5) Platelet Count 106 x10^3/uL (140-400) 119 x10^3/uL (140-400) Neutrophils (%) (Auto) 85 % (31-73) 83 % (31-73) Lymphocytes (%) (Auto) 4 % (24-48) 6 % (24-48) Monocytes (%) (Auto) 8 % (0-9) 9 % (0-9) Eosinophils (%) (Auto) 1 % (0-3) 1 % (0-3) Basophils (%) (Auto) 1 % (0-3) 1 % (0-3) Neutrophils # (Auto) 7.3 x10^3uL (1.8-7.7) 5.8 x10^3uL (1.8-7.7) Lymphocytes # (Auto) 0.4 x10^3/uL (1.0-4.8) 0.4 x10^3/uL (1.0-4.8) Monocytes # (Auto) 0.7 x10^3/uL (0.0-1.1) 0.7 x10^3/uL (0.0-1.1) Eosinophils # (Auto) 0.1 x10^3/uL (0.0-0.7) 0.1 x10^3/uL (0.0-0.7) Basophils # (Auto) 0.1 x10^3/uL (0.0-0.2) 0.1 x10^3/uL (0.0-0.2) Prothrombin Time 15.1 SEC (11.7-14.0) Prothromb Time International Ratio 1.2 (0.8-1.1) Activated Partial Thromboplast Time 31 SEC (24-38) Sodium Level 135 mmol/L (136-145) 133 mmol/L (136-145) Potassium Level 4.5 mmol/L (3.5-5.1) 4.7 mmol/L (3.5-5.1) Chloride Level 100 mmol/L (98-107) 101 mmol/L (98-107) Carbon Dioxide Level 22 mmol/L (21-32) 21 mmol/L (21-32) Anion Gap 13 (6-14) 11 (6-14) Blood Urea Nitrogen 39 mg/dL (7-20) 44 mg/dL (7-20) Creatinine 4.4 mg/dL (0.6-1.0) 5.0 mg/dL (0.6-1.0) Estimated GFR (Cockcroft-Gault) 11.6 10.0 Glucose Level 300 mg/dL (70-99) 234 mg/dL (70-99) Calcium Level 8.3 mg/dL (8.5-10.1) 8.2 mg/dL (8.5-10.1) Total Bilirubin 0.7 mg/dL (0.2-1.0) Direct Bilirubin 0.3 mg/dL (0.0-0.2) Aspartate Amino Transf (AST/SGOT) 23 U/L (15-37) Alanine Aminotransferase (ALT/SGPT) 15 U/L (14-59) Alkaline Phosphatase 129 U/L (46-116) Troponin I Quantitative 0.056 ng/mL (0.000-0.055) CO-Opd-A-Type Natriuretic Peptide > 29522 pg/mL (0-449) Total Protein 6.7 g/dL (6.4-8.2) Albumin 3.1 g/dL (3.4-5.0) Lipase 157 U/L (73-393) Glucose (Fingerstick) 304 mg/dL (70-99) 216 mg/dL (70-99) Review All relevant outside records, renal labs, imaging studies, telemetry/EKG's were reviewed. Images Images CXR: Impression: Improvement in right pleural effusion. Otherwise stable appearance of the chest. No new infiltrate. KRISTAL CHOI MD Mar 16, 2018 10:42
[2018-03-16 11:01] VITALS: BP 158/59
--- NOTE | 2018-03-16 12:22 | PDOC2 ---
CONSULT Date of Consult Date of Consult DATE: 03/16/18 TIME: 12:22 Reason for Consult Reason for Consult: Recent AICD implantation Referring Physician Referring Physician: Dr. Woo Identification/Chief Complaint Chief Complaint Cannot take care of herself at home Source Source: Chart review, Patient History of Present Illness Reason for Visit: 82-year-old female with history of ischemic cardiomyopathy underwent AICD implantation for primary prevention of sudden cardiac and discharged home 2 days ago. She presented back stating that she could not take care of herself at home. She complained of pain and bruising at the incision site but denied any orthopnea/PND, palpitations, syncope or ICD firing episodes. Past Medical History Cardiovascular: CAD, CHF, HTN, Other Pulmonary: Other CENTRAL NERVOUS SYSTEM: TIA GI: GERD Heme/Onc: Anemia NOS, Cancer Hepatobiliary: No pertinent hx Psych: No pertinent hx Rheumatologic: No pertinent hx Infectious disease: No pertinent hx Renal/: Chronic renal failure Endocrine: Diabetes Past Surgical History Past Surgical History: Appendectomy, Cholecystectomy, Cataract Removal, Mastectomy, Hysterectomy, Other Family History Family History: Cancer, Diabetes, Heart Disease Social History No ALCOHOL: none Drugs: None Lives: Alf Current Problem List Problem List Problems Medical Problems: (1) Chest pain Status: Acute Current Medications Current Medications Current Medications Ondansetron HCl (Zofran) 4 mg PRN Q6HRS PRN IV NAUSEA/VOMITING 1ST CHOICE; Start 03/15/18 at 17:30 Prochlorperazine Edisylate (Compazine) 10 mg PRN Q6HRS PRN IV NAUSEA/VOMITING 2ND CHOICE; Start 03/15/18 at 17:30 Prochlorperazine (Compazine) 25 mg PRN Q12HR PRN HI NAUSEA/VOMITING; Start at 17:30 Al Hydroxide/Mg Hydroxide (Mylanta Plus Xs) 30 ml PRN Q3HRS PRN PO HEARTBURN / GAS; Start 03/15/18 at 17:30; Status UNV Calcium Carbonate/ Glycine (Tums) 500 mg PRN Q3HRS PRN PO UPSET STOMACH; Start 03/15/18 at 17:30 Oxycodone HCl (Roxicodone) 5 mg PRN Q3HRS PRN PO BREAKTHROUGH PAIN, SEE COMMENT ; Start 03/15/18 at 17:30 Oxycodone/ Acetaminophen (Percocet 5/325) 1 tab PRN Q4HRS PRN PO MILD PAIN, 1ST CHOICE; Start 03/15/18 at 17:30 Acetaminophen (Tylenol) 650 mg PRN Q6HRS PRN PO Headaches, Temp > 101.5F; Start 03/15/18 at 17:30 Docusate Sodium (Colace) 100 mg BID PO Last administered on 03/16/18at 07:43; Start 03/15/18 at 21:00 Magnesium Hydroxide (Milk Of Magnesia) 2,400 mg PRN Q12HR PRN PO CONSTIPATION 1ST CHOICE; Start 03/15/18 at 17:30; Status Cancel Lactulose (Lactulose) 20 gm PRN Q12HR PRN PO CONSTIPATION 2ND CHOICE; Start at 17:30 Bisacodyl (Dulcolax Supp) 10 mg PRN DAILY PRN HI CONSTIPATION; Start 03/15/18 at 17:30 Enoxaparin Sodium (Lovenox 40mg Syringe) 40 mg Q24H SQ ; Start 03/15/18 at 17: 30; Status UNV Fentanyl Citrate (Fentanyl 2ml Vial) 50 mcg PRN Q2HR PRN IV PAIN; Start at 17:30 Tramadol HCl (Ultram) 50 mg PRN Q6HRS PRN PO PAIN MOD TO SEVERE 1ST CHOICE; Start 03/15/18 at 17:30 Diphenhydramine HCl (Benadryl) 25 mg PRN QHS PRN PO INSOMNIA 1ST CHOICE Last administered on 03/15/18at 23:54; Start 03/15/18 at 17:30 Aspirin (Children'S Aspirin) 81 mg DAILY PO ; Start 03/16/18 at 09:00 Atorvastatin Calcium (Lipitor) 20 mg HS PO Last administered on 03/15/18at 21: 56; Start 03/15/18 at 21:00 Carvedilol (Coreg) 6.25 mg BIDWMEALS PO ; Start 03/16/18 at 08:00 Ergocalciferol (Vitamin D2) 50,000 unit WEEKLY PO ; Start 03/16/18 at 09:00 Vitamin B Complex/ Vitamin C (Johana-Manuel) 1 tab DAILY PO ; Start 03/16/18 at 09: 00 Furosemide (Lasix) 40 mg DAILY PO ; Start 03/16/18 at 09:00 Insulin Glargine (Lantus) 5 units QHS SQ Last administered on 03/15/18at 21:59 ; Start 03/15/18 at 21:00 Isosorbide Mononitrate (Imdur) 30 mg DAILY PO ; Start 03/16/18 at 09:00 Levothyroxine Sodium (Synthroid) 75 mcg DAILYAC PO Last administered on at 07:43; Start 03/16/18 at 07:30 Trazodone HCl (Desyrel) 50 mg PRN QHS PRN PO INSOMNIA 2ND CHOICE; Start at 17:45 Non-Formulary Medication (Albuterol Sulfate (Proair Hfa Inhaler)) 1 puff PRN Q6HRS PRN INH SHORTNESS OF BREATH; Start 03/15/18 at 17:45; Status UNV Hydralazine HCl (Apresoline) 50 mg BID PO Last administered on 03/15/18at 21:56 ; Start 03/15/18 at 21:00 Sertraline HCl (Zoloft) 25 mg DAILY PO ; Start 03/16/18 at 09:00 Non-Formulary Medication (Sucralfate (Carafate)) 1 gm TIDAC PO ; Start at 07:30; Stop 03/16/18 at 07:30; Status DC Pantoprazole Sodium (Protonix) 40 mg BIDAC PO Last administered on 03/16/18at 07:43; Start 03/16/18 at 07:30 Insulin Human Lispro (HumaLOG) 0-9 UNITS TIDWMEALS SQ Last administered on at 12:15; Start 03/16/18 at 08:00 Dextrose (Dextrose 50%-Water Syringe) 12.5 gm PRN Q15MIN PRN IV SEE COMMENTS; Start 03/15/18 at 17:45 Heparin Sodium (Porcine) (Heparin Sodium) 5,000 unit Q8HRS SQ ; Start 03/15/18 at 22:00 Albuterol Sulfate (Ventolin Neb Soln) 2.5 mg PRN Q6HRS PRN NEB SHORTNESS OF BREATH; Start 03/15/18 at 19:30 Active Scripts Active Isosorbide Mononitrate Er (Isosorbide Mononitrate) 30 Mg Tab.er.24h 30 Mg PO DAILY 30 Days Proair Hfa Inhaler (Albuterol Sulfate) 8.5 Gm Hfa.aer.ad 1 Puff INH PRN Q6HRS PRN 30 Days Trazodone Hcl 50 Mg Tablet 50 Mg PO PRN QHS PRN 30 Days Carafate (Sucralfate) 1 Gm Tablet 1 Gm PO TIDAC 30 Days Vitamin D2 (Ergocalciferol (Vitamin D2)) 50,000 Unit Capsule 50,000 Unit PO WEEKLY 30 Days [Pantoprazole] 40 MG Tablet.dr 40 Mg PO BIDAC 30 Days Lantus Solostar (Insulin Glargine,Hum.rec.anlog) 100 Unit/1 Ml Insuln.pen 5 Units SQ QHS 30 Days Carvedilol 3.125 Mg Tablet 6.25 Mg PO BIDWMEALS 30 Days Sertraline Hcl 25 Mg Tablet 25 Mg PO DAILY 30 Days Reported Humalog (Insulin Lispro) 100 Unit/1 Ml Cartridge 0-100 Unit SQ TIDAC Hydralazine Hcl 50 Mg Tablet 50 Mg PO BID Lipitor (Atorvastatin Calcium) 20 Mg Tablet 20 Mg PO HS Aspirin 81 Mg Tab.chew 81 Mg PO DAILY Synthroid (Levothyroxine Sodium) 75 Mcg Tablet 75 Mcg PO DAILYAC Nephro-Manuel Tablet (Folic Acid/Vitamin B Comp W-C) 0.8 Mg Tablet 0.8 Mg PO DAILY Lasix (Furosemide) 40 Mg Tablet 40 Mg PO DAILY Allergies Allergies: Coded Allergies: adhesive tape (Verified Allergy, Intermediate, PAPER TAPE, 09/27/17) morphine (Verified Allergy, Mild, Itching, 03/15/18) Received oxycodone 10/2017 with no documented adverse effects and received tramadol 11/2017 with no documented adverse effects ROS PSYCHOLOGICAL ROS: No: Hallucinations Eyes: No Loss of vision HEENT: No: Epistaxis ENDOCRINE: No: Palpitations Respiratory: No: Hemoptysis, Shortness of breath Cardiovascular: yes Chest Pain Gastrointestinal: No Vomiting, No Diarrhea Neurological: No Seizures Skin: No Rash Physical Exam General: Alert, Oriented X3 HEENT: Atraumatic, PERRLA Lungs: Clear to auscultation Heart: Regular rate Abdomen: Soft, No tenderness Extremities: No edema Psych/Mental Status: Mood NL Vitals VITALS Vital Signs Date Time Temp Pulse Resp B/P (MAP) Pulse Ox O2 Delivery O2 Flow Rate FiO2 10/27/18 11:01 98.1 67 18 158/59 (92) 97 Room Air 98.1 Labs Labs Laboratory Tests Test 03/15/18 17:40 03/15/18 21:55 03/16/18 07:34 03/16/18 08:40 White Blood Count 8.6 x10^3/uL (4.0-11.0) 7.0 x10^3/uL (4.0-11.0) Red Blood Count 2.87 x10^6/uL (3.50-5.40) 3.00 x10^6/uL (3.50-5.40) Hemoglobin 9.6 g/dL (12.0-15.5) 10.1 g/dL (12.0-15.5) Hematocrit 28.8 % (36.0-47.0) 29.9 % (36.0-47.0) Mean Corpuscular Volume 100 fL (79-100) 100 fL (79-100) Mean Corpuscular Hemoglobin 33 pg (25-35) 34 pg (25-35) Mean Corpuscular Hemoglobin Concent 33 g/dL (31-37) 34 g/dL (31-37) Red Cell Distribution Width 15.9 % (11.5-14.5) 15.8 % (11.5-14.5) Platelet Count 106 x10^3/uL (140-400) 119 x10^3/uL (140-400) Neutrophils (%) (Auto) 85 % (31-73) 83 % (31-73) Lymphocytes (%) (Auto) 4 % (24-48) 6 % (24-48) Monocytes (%) (Auto) 8 % (0-9) 9 % (0-9) Eosinophils (%) (Auto) 1 % (0-3) 1 % (0-3) Basophils (%) (Auto) 1 % (0-3) 1 % (0-3) Neutrophils # (Auto) 7.3 x10^3uL (1.8-7.7) 5.8 x10^3uL (1.8-7.7) Lymphocytes # (Auto) 0.4 x10^3/uL (1.0-4.8) 0.4 x10^3/uL (1.0-4.8) Monocytes # (Auto) 0.7 x10^3/uL (0.0-1.1) 0.7 x10^3/uL (0.0-1.1) Eosinophils # (Auto) 0.1 x10^3/uL (0.0-0.7) 0.1 x10^3/uL (0.0-0.7) Basophils # (Auto) 0.1 x10^3/uL (0.0-0.2) 0.1 x10^3/uL (0.0-0.2) Prothrombin Time 15.1 SEC (11.7-14.0) Prothromb Time International Ratio 1.2 (0.8-1.1) Activated Partial Thromboplast Time 31 SEC (24-38) Sodium Level 135 mmol/L (136-145) 133 mmol/L (136-145) Potassium Level 4.5 mmol/L (3.5-5.1) 4.7 mmol/L (3.5-5.1) Chloride Level 100 mmol/L (98-107) 101 mmol/L (98-107) Carbon Dioxide Level 22 mmol/L (21-32) 21 mmol/L (21-32) Anion Gap 13 (6-14) 11 (6-14) Blood Urea Nitrogen 39 mg/dL (7-20) 44 mg/dL (7-20) Creatinine 4.4 mg/dL (0.6-1.0) 5.0 mg/dL (0.6-1.0) Estimated GFR (Cockcroft-Gault) 11.6 10.0 Glucose Level 300 mg/dL (70-99) 234 mg/dL (70-99) Calcium Level 8.3 mg/dL (8.5-10.1) 8.2 mg/dL (8.5-10.1) Total Bilirubin 0.7 mg/dL (0.2-1.0) Direct Bilirubin 0.3 mg/dL (0.0-0.2) Aspartate Amino Transf (AST/SGOT) 23 U/L (15-37) Alanine Aminotransferase (ALT/SGPT) 15 U/L (14-59) Alkaline Phosphatase 129 U/L (46-116) Troponin I Quantitative 0.056 ng/mL (0.000-0.055) OR-Xiz-T-Type Natriuretic Peptide > 48666 pg/mL (0-449) Total Protein 6.7 g/dL (6.4-8.2) Albumin 3.1 g/dL (3.4-5.0) Lipase 157 U/L (73-393) Glucose (Fingerstick) 304 mg/dL (70-99) 216 mg/dL (70-99) Test 03/16/18 11:29 Glucose (Fingerstick) 288 mg/dL (70-99) Laboratory Tests Test 03/15/18 17:40 03/15/18 21:55 03/16/18 07:34 03/16/18 08:40 White Blood Count 8.6 x10^3/uL (4.0-11.0) 7.0 x10^3/uL (4.0-11.0) Red Blood Count 2.87 x10^6/uL (3.50-5.40) 3.00 x10^6/uL (3.50-5.40) Hemoglobin 9.6 g/dL (12.0-15.5) 10.1 g/dL (12.0-15.5) Hematocrit 28.8 % (36.0-47.0) 29.9 % (36.0-47.0) Mean Corpuscular Volume 100 fL (79-100) 100 fL (79-100) Mean Corpuscular Hemoglobin 33 pg (25-35) 34 pg (25-35) Mean Corpuscular Hemoglobin Concent 33 g/dL (31-37) 34 g/dL (31-37) Red Cell Distribution Width 15.9 % (11.5-14.5) 15.8 % (11.5-14.5) Platelet Count 106 x10^3/uL (140-400) 119 x10^3/uL (140-400) Neutrophils (%) (Auto) 85 % (31-73) 83 % (31-73) Lymphocytes (%) (Auto) 4 % (24-48) 6 % (24-48) Monocytes (%) (Auto) 8 % (0-9) 9 % (0-9) Eosinophils (%) (Auto) 1 % (0-3) 1 % (0-3) Basophils (%) (Auto) 1 % (0-3) 1 % (0-3) Neutrophils # (Auto) 7.3 x10^3uL (1.8-7.7) 5.8 x10^3uL (1.8-7.7) Lymphocytes # (Auto) 0.4 x10^3/uL (1.0-4.8) 0.4 x10^3/uL (1.0-4.8) Monocytes # (Auto) 0.7 x10^3/uL (0.0-1.1) 0.7 x10^3/uL (0.0-1.1) Eosinophils # (Auto) 0.1 x10^3/uL (0.0-0.7) 0.1 x10^3/uL (0.0-0.7) Basophils # (Auto) 0.1 x10^3/uL (0.0-0.2) 0.1 x10^3/uL (0.0-0.2) Prothrombin Time 15.1 SEC (11.7-14.0) Prothromb Time International Ratio 1.2 (0.8-1.1) Activated Partial Thromboplast Time 31 SEC (24-38) Sodium Level 135 mmol/L (136-145) 133 mmol/L (136-145) Potassium Level 4.5 mmol/L (3.5-5.1) 4.7 mmol/L (3.5-5.1) Chloride Level 100 mmol/L (98-107) 101 mmol/L (98-107) Carbon Dioxide Level 22 mmol/L (21-32) 21 mmol/L (21-32) Anion Gap 13 (6-14) 11 (6-14) Blood Urea Nitrogen 39 mg/dL (7-20) 44 mg/dL (7-20) Creatinine 4.4 mg/dL (0.6-1.0) 5.0 mg/dL (0.6-1.0) Estimated GFR (Cockcroft-Gault) 11.6 10.0 Glucose Level 300 mg/dL (70-99) 234 mg/dL (70-99) Calcium Level 8.3 mg/dL (8.5-10.1) 8.2 mg/dL (8.5-10.1) Total Bilirubin 0.7 mg/dL (0.2-1.0) Direct Bilirubin 0.3 mg/dL (0.0-0.2) Aspartate Amino Transf (AST/SGOT) 23 U/L (15-37) Alanine Aminotransferase (ALT/SGPT) 15 U/L (14-59) Alkaline Phosphatase 129 U/L (46-116) Troponin I Quantitative 0.056 ng/mL (0.000-0.055) HK-Vcq-L-Type Natriuretic Peptide > 83904 pg/mL (0-449) Total Protein 6.7 g/dL (6.4-8.2) Albumin 3.1 g/dL (3.4-5.0) Lipase 157 U/L (73-393) Glucose (Fingerstick) 304 mg/dL (70-99) 216 mg/dL (70-99) Test 03/16/18 11:29 Glucose (Fingerstick) 288 mg/dL (70-99) Assessment/Plan Assessment/Plan 1. Ischemic cardiomyopathy, chronic systolic heart failure s/p recent AICD implantation for primary prevention SCD. Incision looks good. Small hematoma noted with ecchymosis surrounding it without any evidence of cellulitis. Cardiomyopathy clinically well compensated. Recent device check showed normal function. Chest x-ray did not show any acute cardiopulmonary process. Continue current medical regimen and consider SNF placement. 2. Coronary artery disease s/p PCI/stent to RCA, stable and chest pain-free. Continue current secondary prevention measures. 3. Hypertension: Blood pressure elevated. Resume home medications and titrate for better control. 4. Hyperlipidemia: Statins 5. Diabetes mellitus type 2: Treat per IM 6. End-stage renal disease: Hemodialysis per nephrology team Thank you for your consultation AGA LIU MD Mar 16, 2018 12:22
[2018-03-16] MEDS ORDERED: IV NORMAL SALINE 1000ML BAG 1,000 ML IV PRN ×2 (13:00)
--- NOTE | 2018-03-16 13:31 | PDOC ---
PROGRESS NOTES Chief Complaint Chief Complaint Failure to thrive/self-neglect at home Generalized weakness-agreeable to SNU or rehabilitation-she actually wants it Recent pacer placement, by cards for . ICM/chronic systolic CHF: EF at 30%. NYHA 2-3. S/P AICD: Biotronik, n CAD: hx of PCI/stent to RCA, clinically stable HTN: HLP ESRD TTHSAT - HD per nephrology DM2 - on insulin, controlled History of Present Illness History of Present Illness Appreciate cardiology/renal note Patient is for dialysis as scheduled Patient with physical therapy-might need rehabilitation or SNU She is interested in HCR Plan: CPM, social work HCR screen Home meds have been reconciled since admission Vitals Vitals Vital Signs Date Time Temp Pulse Resp B/P (MAP) Pulse Ox O2 Delivery O2 Flow Rate FiO2 03/16/18 11:01 98.1 67 18 158/59 (92) 97 Room Air 98.1 Physical Exam General: Alert, Oriented X3, Cooperative, No acute distress Heart: Regular rate, Normal S1, Normal S2 Lungs: Clear Abdomen: Normal bowel sounds, Soft Extremities: No clubbing, No cyanosis, No edema, Normal pulses, No tenderness/ swelling, Other (she has AV fistula in the right arm with a probable bruit and good dorsalis pedis) Labs LABS Laboratory Tests Test 03/15/18 17:40 03/15/18 21:55 03/16/18 07:34 03/16/18 08:40 White Blood Count 8.6 x10^3/uL (4.0-11.0) 7.0 x10^3/uL (4.0-11.0) Red Blood Count 2.87 x10^6/uL (3.50-5.40) 3.00 x10^6/uL (3.50-5.40) Hemoglobin 9.6 g/dL (12.0-15.5) 10.1 g/dL (12.0-15.5) Hematocrit 28.8 % (36.0-47.0) 29.9 % (36.0-47.0) Mean Corpuscular Volume 100 fL (79-100) 100 fL (79-100) Mean Corpuscular Hemoglobin 33 pg (25-35) 34 pg (25-35) Mean Corpuscular Hemoglobin Concent 33 g/dL (31-37) 34 g/dL (31-37) Red Cell Distribution Width 15.9 % (11.5-14.5) 15.8 % (11.5-14.5) Platelet Count 106 x10^3/uL (140-400) 119 x10^3/uL (140-400) Neutrophils (%) (Auto) 85 % (31-73) 83 % (31-73) Lymphocytes (%) (Auto) 4 % (24-48) 6 % (24-48) Monocytes (%) (Auto) 8 % (0-9) 9 % (0-9) Eosinophils (%) (Auto) 1 % (0-3) 1 % (0-3) Basophils (%) (Auto) 1 % (0-3) 1 % (0-3) Neutrophils # (Auto) 7.3 x10^3uL (1.8-7.7) 5.8 x10^3uL (1.8-7.7) Lymphocytes # (Auto) 0.4 x10^3/uL (1.0-4.8) 0.4 x10^3/uL (1.0-4.8) Monocytes # (Auto) 0.7 x10^3/uL (0.0-1.1) 0.7 x10^3/uL (0.0-1.1) Eosinophils # (Auto) 0.1 x10^3/uL (0.0-0.7) 0.1 x10^3/uL (0.0-0.7) Basophils # (Auto) 0.1 x10^3/uL (0.0-0.2) 0.1 x10^3/uL (0.0-0.2) Prothrombin Time 15.1 SEC (11.7-14.0) Prothromb Time International Ratio 1.2 (0.8-1.1) Activated Partial Thromboplast Time 31 SEC (24-38) Sodium Level 135 mmol/L (136-145) 133 mmol/L (136-145) Potassium Level 4.5 mmol/L (3.5-5.1) 4.7 mmol/L (3.5-5.1) Chloride Level 100 mmol/L (98-107) 101 mmol/L (98-107) Carbon Dioxide Level 22 mmol/L (21-32) 21 mmol/L (21-32) Anion Gap 13 (6-14) 11 (6-14) Blood Urea Nitrogen 39 mg/dL (7-20) 44 mg/dL (7-20) Creatinine 4.4 mg/dL (0.6-1.0) 5.0 mg/dL (0.6-1.0) Estimated GFR (Cockcroft-Gault) 11.6 10.0 Glucose Level 300 mg/dL (70-99) 234 mg/dL (70-99) Calcium Level 8.3 mg/dL (8.5-10.1) 8.2 mg/dL (8.5-10.1) Total Bilirubin 0.7 mg/dL (0.2-1.0) Direct Bilirubin 0.3 mg/dL (0.0-0.2) Aspartate Amino Transf (AST/SGOT) 23 U/L (15-37) Alanine Aminotransferase (ALT/SGPT) 15 U/L (14-59) Alkaline Phosphatase 129 U/L (46-116) Troponin I Quantitative 0.056 ng/mL (0.000-0.055) GH-Qmg-O-Type Natriuretic Peptide > 96254 pg/mL (0-449) Total Protein 6.7 g/dL (6.4-8.2) Albumin 3.1 g/dL (3.4-5.0) Lipase 157 U/L (73-393) Glucose (Fingerstick) 304 mg/dL (70-99) 216 mg/dL (70-99) Test 03/16/18 11:29 Glucose (Fingerstick) 288 mg/dL (70-99) Review of Systems Review of Systems A 14 point ROS was completed with the following noted as positive: Other systems reviewed and negative. \CONSTITUTIONAL: No fever or chills EYES: No recent changes SKIN: No rash or itching CARDIOVASCULAR: No chest pain, syncope, palpitations, or edema RESPIRATORY: No SOB or cough GASTROINTESTINAL: No nausea, vomiting or abdominal pain NEUROLOGICAL: No headaches or weakness ENDOCRINE: No cold or heat intolerance GENITOURINARY: No urgency or frequency of urination MUSCULOSKELETAL: No back pain or joint pain LYMPHATICS: No enlarged lymph nodes PSYCHIATRIC: No anxiety or depression Assessment and Plan Assessmemt and Plan Problems Medical Problems: (1) Chest pain Status: Acute Comment Review of Relevant I have reviewed the following items qing (where applicable) has been applied. Labs Laboratory Tests Test 03/15/18 17:40 03/15/18 21:55 03/16/18 07:34 03/16/18 08:40 White Blood Count 8.6 x10^3/uL (4.0-11.0) 7.0 x10^3/uL (4.0-11.0) Red Blood Count 2.87 x10^6/uL (3.50-5.40) 3.00 x10^6/uL (3.50-5.40) Hemoglobin 9.6 g/dL (12.0-15.5) 10.1 g/dL (12.0-15.5) Hematocrit 28.8 % (36.0-47.0) 29.9 % (36.0-47.0) Mean Corpuscular Volume 100 fL (79-100) 100 fL (79-100) Mean Corpuscular Hemoglobin 33 pg (25-35) 34 pg (25-35) Mean Corpuscular Hemoglobin Concent 33 g/dL (31-37) 34 g/dL (31-37) Red Cell Distribution Width 15.9 % (11.5-14.5) 15.8 % (11.5-14.5) Platelet Count 106 x10^3/uL (140-400) 119 x10^3/uL (140-400) Neutrophils (%) (Auto) 85 % (31-73) 83 % (31-73) Lymphocytes (%) (Auto) 4 % (24-48) 6 % (24-48) Monocytes (%) (Auto) 8 % (0-9) 9 % (0-9) Eosinophils (%) (Auto) 1 % (0-3) 1 % (0-3) Basophils (%) (Auto) 1 % (0-3) 1 % (0-3) Neutrophils # (Auto) 7.3 x10^3uL (1.8-7.7) 5.8 x10^3uL (1.8-7.7) Lymphocytes # (Auto) 0.4 x10^3/uL (1.0-4.8) 0.4 x10^3/uL (1.0-4.8) Monocytes # (Auto) 0.7 x10^3/uL (0.0-1.1) 0.7 x10^3/uL (0.0-1.1) Eosinophils # (Auto) 0.1 x10^3/uL (0.0-0.7) 0.1 x10^3/uL (0.0-0.7) Basophils # (Auto) 0.1 x10^3/uL (0.0-0.2) 0.1 x10^3/uL (0.0-0.2) Prothrombin Time 15.1 SEC (11.7-14.0) Prothromb Time International Ratio 1.2 (0.8-1.1) Activated Partial Thromboplast Time 31 SEC (24-38) Sodium Level 135 mmol/L (136-145) 133 mmol/L (136-145) Potassium Level 4.5 mmol/L (3.5-5.1) 4.7 mmol/L (3.5-5.1) Chloride Level 100 mmol/L (98-107) 101 mmol/L (98-107) Carbon Dioxide Level 22 mmol/L (21-32) 21 mmol/L (21-32) Anion Gap 13 (6-14) 11 (6-14) Blood Urea Nitrogen 39 mg/dL (7-20) 44 mg/dL (7-20) Creatinine 4.4 mg/dL (0.6-1.0) 5.0 mg/dL (0.6-1.0) Estimated GFR (Cockcroft-Gault) 11.6 10.0 Glucose Level 300 mg/dL (70-99) 234 mg/dL (70-99) Calcium Level 8.3 mg/dL (8.5-10.1) 8.2 mg/dL (8.5-10.1) Total Bilirubin 0.7 mg/dL (0.2-1.0) Direct Bilirubin 0.3 mg/dL (0.0-0.2) Aspartate Amino Transf (AST/SGOT) 23 U/L (15-37) Alanine Aminotransferase (ALT/SGPT) 15 U/L (14-59) Alkaline Phosphatase 129 U/L (46-116) Troponin I Quantitative 0.056 ng/mL (0.000-0.055) MM-Zua-F-Type Natriuretic Peptide > 28941 pg/mL (0-449) Total Protein 6.7 g/dL (6.4-8.2) Albumin 3.1 g/dL (3.4-5.0) Lipase 157 U/L (73-393) Glucose (Fingerstick) 304 mg/dL (70-99) 216 mg/dL (70-99) Test 03/16/18 11:29 Glucose (Fingerstick) 288 mg/dL (70-99) Laboratory Tests Test 03/15/18 17:40 03/15/18 21:55 03/16/18 07:34 03/16/18 08:40 White Blood Count 8.6 x10^3/uL (4.0-11.0) 7.0 x10^3/uL (4.0-11.0) Red Blood Count 2.87 x10^6/uL (3.50-5.40) 3.00 x10^6/uL (3.50-5.40) Hemoglobin 9.6 g/dL (12.0-15.5) 10.1 g/dL (12.0-15.5) Hematocrit 28.8 % (36.0-47.0) 29.9 % (36.0-47.0) Mean Corpuscular Volume 100 fL (79-100) 100 fL (79-100) Mean Corpuscular Hemoglobin 33 pg (25-35) 34 pg (25-35) Mean Corpuscular Hemoglobin Concent 33 g/dL (31-37) 34 g/dL (31-37) Red Cell Distribution Width 15.9 % (11.5-14.5) 15.8 % (11.5-14.5) Platelet Count 106 x10^3/uL (140-400) 119 x10^3/uL (140-400) Neutrophils (%) (Auto) 85 % (31-73) 83 % (31-73) Lymphocytes (%) (Auto) 4 % (24-48) 6 % (24-48) Monocytes (%) (Auto) 8 % (0-9) 9 % (0-9) Eosinophils (%) (Auto) 1 % (0-3) 1 % (0-3) Basophils (%) (Auto) 1 % (0-3) 1 % (0-3) Neutrophils # (Auto) 7.3 x10^3uL (1.8-7.7) 5.8 x10^3uL (1.8-7.7) Lymphocytes # (Auto) 0.4 x10^3/uL (1.0-4.8) 0.4 x10^3/uL (1.0-4.8) Monocytes # (Auto) 0.7 x10^3/uL (0.0-1.1) 0.7 x10^3/uL (0.0-1.1) Eosinophils # (Auto) 0.1 x10^3/uL (0.0-0.7) 0.1 x10^3/uL (0.0-0.7) Basophils # (Auto) 0.1 x10^3/uL (0.0-0.2) 0.1 x10^3/uL (0.0-0.2) Prothrombin Time 15.1 SEC (11.7-14.0) Prothromb Time International Ratio 1.2 (0.8-1.1) Activated Partial Thromboplast Time 31 SEC (24-38) Sodium Level 135 mmol/L (136-145) 133 mmol/L (136-145) Potassium Level 4.5 mmol/L (3.5-5.1) 4.7 mmol/L (3.5-5.1) Chloride Level 100 mmol/L (98-107) 101 mmol/L (98-107) Carbon Dioxide Level 22 mmol/L (21-32) 21 mmol/L (21-32) Anion Gap 13 (6-14) 11 (6-14) Blood Urea Nitrogen 39 mg/dL (7-20) 44 mg/dL (7-20) Creatinine 4.4 mg/dL (0.6-1.0) 5.0 mg/dL (0.6-1.0) Estimated GFR (Cockcroft-Gault) 11.6 10.0 Glucose Level 300 mg/dL (70-99) 234 mg/dL (70-99) Calcium Level 8.3 mg/dL (8.5-10.1) 8.2 mg/dL (8.5-10.1) Total Bilirubin 0.7 mg/dL (0.2-1.0) Direct Bilirubin 0.3 mg/dL (0.0-0.2) Aspartate Amino Transf (AST/SGOT) 23 U/L (15-37) Alanine Aminotransferase (ALT/SGPT) 15 U/L (14-59) Alkaline Phosphatase 129 U/L (46-116) Troponin I Quantitative 0.056 ng/mL (0.000-0.055) WD-Ruo-P-Type Natriuretic Peptide > 65626 pg/mL (0-449) Total Protein 6.7 g/dL (6.4-8.2) Albumin 3.1 g/dL (3.4-5.0) Lipase 157 U/L (73-393) Glucose (Fingerstick) 304 mg/dL (70-99) 216 mg/dL (70-99) Test 03/16/18 11:29 Glucose (Fingerstick) 288 mg/dL (70-99) Medications Current Medications Ondansetron HCl (Zofran) 4 mg PRN Q6HRS PRN IV NAUSEA/VOMITING 1ST CHOICE; Start 03/15/18 at 17:30 Prochlorperazine Edisylate (Compazine) 10 mg PRN Q6HRS PRN IV NAUSEA/VOMITING 2ND CHOICE; Start 03/15/18 at 17:30 Prochlorperazine (Compazine) 25 mg PRN Q12HR PRN DC NAUSEA/VOMITING; Start at 17:30 Al Hydroxide/Mg Hydroxide (Mylanta Plus Xs) 30 ml PRN Q3HRS PRN PO HEARTBURN / GAS; Start 03/15/18 at 17:30; Status UNV Calcium Carbonate/ Glycine (Tums) 500 mg PRN Q3HRS PRN PO UPSET STOMACH; Start 03/15/18 at 17:30 Oxycodone HCl (Roxicodone) 5 mg PRN Q3HRS PRN PO BREAKTHROUGH PAIN, SEE COMMENT ; Start 03/15/18 at 17:30 Oxycodone/ Acetaminophen (Percocet 5/325) 1 tab PRN Q4HRS PRN PO MILD PAIN, 1ST CHOICE; Start 03/15/18 at 17:30 Acetaminophen (Tylenol) 650 mg PRN Q6HRS PRN PO Headaches, Temp > 101.5F; Start 03/15/18 at 17:30 Docusate Sodium (Colace) 100 mg BID PO Last administered on 03/16/18at 07:43; Start 03/15/18 at 21:00 Magnesium Hydroxide (Milk Of Magnesia) 2,400 mg PRN Q12HR PRN PO CONSTIPATION 1ST CHOICE; Start 03/15/18 at 17:30; Status Cancel Lactulose (Lactulose) 20 gm PRN Q12HR PRN PO CONSTIPATION 2ND CHOICE; Start at 17:30 Bisacodyl (Dulcolax Supp) 10 mg PRN DAILY PRN DC CONSTIPATION; Start 03/15/18 at 17:30 Enoxaparin Sodium (Lovenox 40mg Syringe) 40 mg Q24H SQ ; Start 03/15/18 at 17: 30; Status UNV Fentanyl Citrate (Fentanyl 2ml Vial) 50 mcg PRN Q2HR PRN IV PAIN; Start at 17:30 Tramadol HCl (Ultram) 50 mg PRN Q6HRS PRN PO PAIN MOD TO SEVERE 1ST CHOICE; Start 03/15/18 at 17:30 Diphenhydramine HCl (Benadryl) 25 mg PRN QHS PRN PO INSOMNIA 1ST CHOICE Last administered on 03/15/18at 23:54; Start 03/15/18 at 17:30 Aspirin (Children'S Aspirin) 81 mg DAILY PO ; Start 03/16/18 at 09:00 Atorvastatin Calcium (Lipitor) 20 mg HS PO Last administered on 03/15/18at 21: 56; Start 03/15/18 at 21:00 Carvedilol (Coreg) 6.25 mg BIDWMEALS PO ; Start 03/16/18 at 08:00 Ergocalciferol (Vitamin D2) 50,000 unit WEEKLY PO ; Start 03/16/18 at 09:00 Vitamin B Complex/ Vitamin C (Johana-Manuel) 1 tab DAILY PO ; Start 03/16/18 at 09: 00 Furosemide (Lasix) 40 mg DAILY PO ; Start 03/16/18 at 09:00 Insulin Glargine (Lantus) 5 units QHS SQ Last administered on 03/15/18at 21:59 ; Start 03/15/18 at 21:00 Isosorbide Mononitrate (Imdur) 30 mg DAILY PO ; Start 03/16/18 at 09:00 Levothyroxine Sodium (Synthroid) 75 mcg DAILYAC PO Last administered on at 07:43; Start 03/16/18 at 07:30 Trazodone HCl (Desyrel) 50 mg PRN QHS PRN PO INSOMNIA 2ND CHOICE; Start at 17:45 Non-Formulary Medication (Albuterol Sulfate (Proair Hfa Inhaler)) 1 puff PRN Q6HRS PRN INH SHORTNESS OF BREATH; Start 03/15/18 at 17:45; Status UNV Hydralazine HCl (Apresoline) 50 mg BID PO Last administered on 03/15/18at 21:56 ; Start 03/15/18 at 21:00 Sertraline HCl (Zoloft) 25 mg DAILY PO ; Start 03/16/18 at 09:00 Non-Formulary Medication (Sucralfate (Carafate)) 1 gm TIDAC PO ; Start at 07:30; Stop 03/16/18 at 07:30; Status DC Pantoprazole Sodium (Protonix) 40 mg BIDAC PO Last administered on 03/16/18at 07:43; Start 03/16/18 at 07:30 Insulin Human Lispro (HumaLOG) 0-9 UNITS TIDWMEALS SQ Last administered on at 12:15; Start 03/16/18 at 08:00 Dextrose (Dextrose 50%-Water Syringe) 12.5 gm PRN Q15MIN PRN IV SEE COMMENTS; Start 03/15/18 at 17:45 Heparin Sodium (Porcine) (Heparin Sodium) 5,000 unit Q8HRS SQ ; Start 03/15/18 at 22:00 Albuterol Sulfate (Ventolin Neb Soln) 2.5 mg PRN Q6HRS PRN NEB SHORTNESS OF BREATH; Start 03/15/18 at 19:30 Active Scripts Active Isosorbide Mononitrate Er (Isosorbide Mononitrate) 30 Mg Tab.er.24h 30 Mg PO DAILY 30 Days Proair Hfa Inhaler (Albuterol Sulfate) 8.5 Gm Hfa.aer.ad 1 Puff INH PRN Q6HRS PRN 30 Days Trazodone Hcl 50 Mg Tablet 50 Mg PO PRN QHS PRN 30 Days Carafate (Sucralfate) 1 Gm Tablet 1 Gm PO TIDAC 30 Days Vitamin D2 (Ergocalciferol (Vitamin D2)) 50,000 Unit Capsule 50,000 Unit PO WEEKLY 30 Days [Pantoprazole] 40 MG Tablet.dr 40 Mg PO BIDAC 30 Days Lantus Solostar (Insulin Glargine,Hum.rec.anlog) 100 Unit/1 Ml Insuln.pen 5 Units SQ QHS 30 Days Carvedilol 3.125 Mg Tablet 6.25 Mg PO BIDWMEALS 30 Days Sertraline Hcl 25 Mg Tablet 25 Mg PO DAILY 30 Days Reported Humalog (Insulin Lispro) 100 Unit/1 Ml Cartridge 0-100 Unit SQ TIDAC Hydralazine Hcl 50 Mg Tablet 50 Mg PO BID Lipitor (Atorvastatin Calcium) 20 Mg Tablet 20 Mg PO HS Aspirin 81 Mg Tab.chew 81 Mg PO DAILY Synthroid (Levothyroxine Sodium) 75 Mcg Tablet 75 Mcg PO DAILYAC Nephro-Manuel Tablet (Folic Acid/Vitamin B Comp W-C) 0.8 Mg Tablet 0.8 Mg PO DAILY Lasix (Furosemide) 40 Mg Tablet 40 Mg PO DAILY Vitals/I & O Vital Sign - Last 24 Hours 03/15/18 03/15/18 03/15/18 03/15/18 16:15 18:34 20:00 20:00 Temp 98.6 98.2 98.6 98.2 Pulse 72 68 71 Resp 16 18 22 B/P (MAP) 170/74 (106) 179/68 (105) 121/97 (105) Pulse Ox 97 97 99 O2 Delivery Room Air Room Air Room Air Room Air 03/15/18 03/15/18 03/15/18 03/16/18 21:51 21:56 22:51 03:30 Temp 97.5 97.9 97.5 97.9 Pulse 68 72 66 Resp 20 B/P (MAP) 179/68 154/55 (88) 156/57 (90) Pulse Ox 98 98 98 O2 Delivery Room Air Room Air Room Air 03/16/18 03/16/18 03/16/18 07:39 07:50 11:01 Temp 96.9 98.1 96.9 98.1 Pulse 68 67 Resp 18 18 B/P (MAP) 180/58 (98) 158/59 (92) Pulse Ox 99 97 O2 Delivery Room Air Room Air Room Air Intake and Output 03/15/18 03/15/18 03/16/18 15:00 23:00 07:00 Intake Total 200 ml 390 ml Balance 200 ml 390 ml MARYCHUY SINGH MD Mar 16, 2018 13:31
[2018-03-16 14:22] VITALS: BP 177/55
[2018-03-16] MEDS ORDERED: diphenhydrAMINE HCL 25 MG CAPSULE PO PRN (15:00)
[2018-03-16] MEDS ORDERED: DIALYSIS PATIENT. MC PRN ×2 (17:45)
[2018-03-16] MEDS: SERTRALINE 25 MG TABLET. PO SCH (17:59)
[2018-03-16] MEDS: FOLIC/VIT B COMP W-C (RENAL) TABLET. PO SCH (17:59)
[2018-03-16] MEDS: ASPIRIN CHEWABLE 81 MG TABLET. PO SCH (17:59)
[2018-03-16] MEDS: FUROSEMIDE 40 MG TABLET. PO SCH (17:59)
[2018-03-16] MEDS: ISOSORBIDE MONONITRATE ER 30 MG TAB.ER.24H PO SCH (18:00)
[2018-03-16 19:45] VITALS: BP 134/65
[2018-03-16] MEDS: ATORVASTATIN CALCIUM 20 MG TABLET PO SCH (22:17)
[2018-03-16] MEDS: traMADol 50 MG TABLET PO PRN (22:18)
[2018-03-16] MEDS: diphenhydrAMINE HCL 25 MG CAPSULE PO PRN (22:18)
[2018-03-16] MEDS: INSULIN GLARGINE 300 UNITS/3 ML INSULN.PEN. SQ SCH (22:31)
[2018-03-16 23:00] VITALS: BP 144/66
[2018-03-17 03:00] VITALS: BP 158/71
[2018-03-17] MEDS: HEPARIN for SUB-Q USE 5,000 UNIT/ML VIAL. SQ SCH ×3 (05:56→21:22)
[2018-03-17 07:39] VITALS: BP 167/76
[2018-03-17] MEDS: FUROSEMIDE 40 MG TABLET. PO SCH (07:53)
[2018-03-17] MEDS: ASPIRIN CHEWABLE 81 MG TABLET. PO SCH (07:53)
[2018-03-17] MEDS: LEVOTHYROXINE 75 MCG TABLET PO SCH (07:53)
[2018-03-17] MEDS: PANTOPRAZOLE 40 MG TABLET.DR. PO SCH ×2 (07:53→17:23)
[2018-03-17] MEDS: FOLIC/VIT B COMP W-C (RENAL) TABLET. PO SCH (07:54)
[2018-03-17] MEDS: ISOSORBIDE MONONITRATE ER 30 MG TAB.ER.24H PO SCH (07:54)
[2018-03-17] MEDS: DOCUSATE SODIUM 100 MG CAPSULE. PO SCH ×2 (07:54→21:00)
[2018-03-17] MEDS: SERTRALINE 25 MG TABLET. PO SCH (07:54)
[2018-03-17] MEDS: CARVEDILOL 6.25 MG TABLET. PO SCH ×2 (07:54→17:23)
[2018-03-17] MEDS: INSULIN LISPRO 300 UNITS/3 ML INSULN.PEN. SQ SCH ×3 (08:16→17:27)
[2018-03-17 11:04] VITALS: BP 147/61
--- NOTE | 2018-03-17 11:10 | PDOC ---
PROGRESS NOTES Subjective Subjective Patient feeling better today. Complained of weakness but denied any dyspnea. Objective Objective Vital Signs Date Time Temp Pulse Resp B/P (MAP) Pulse Ox O2 Delivery O2 Flow Rate FiO2 03/17/18 11:04 98.1 63 20 147/61 (89) 97 Room Air 98.1 Intake and Output 03/17/18 07:00 # Bowel Movements 2 Physical Exam Abdomen: Soft, No tenderness Heart: Regular rate Extremities: No edema General: Alert, Oriented X3 HEENT: Atraumatic, PERRLA Lungs: Clear to auscultation MUSCULOSKELETAL: No deformity, No swelling Neuro: Normal gait, Normal speech, Strength at 5/5 X4 ext, Normal tone, Sensation intact, Cranial nerves 3-12 NL, Reflexes 2+ Psych/Mental Status: Mood NL Assessment Assessment 1. Ischemic cardiomyopathy, chronic systolic heart failure s/p recent AICD implantation for primary prevention SCD. Incision looks good. Small hematoma noted with ecchymosis surrounding it without any evidence of cellulitis. Cardiomyopathy clinically well compensated. Recent device check showed normal function. Chest x-ray did not show any acute cardiopulmonary process. Continue current medical regimen and plan SNF placement. 2. Coronary artery disease s/p PCI/stent to RCA, stable and chest pain-free. Continue current secondary prevention measures. 3. Hypertension: Blood pressure better controlled since admission. 4. Hyperlipidemia: Statins 5. Diabetes mellitus type 2: Treat per IM 6. End-stage renal disease: Hemodialysis per nephrology team Plan Plan of Care Problems Medical Problems: (1) Chest pain Status: Acute Comment Review of Relevant I have reviewed the following items qing (where applicable) has been applied. Labs Laboratory Tests Test 03/16/18 11:29 03/16/18 17:56 03/16/18 21:49 03/17/18 08:13 Glucose (Fingerstick) 288 mg/dL (70-99) 65 mg/dL (70-99) 184 mg/dL (70-99) 249 mg/dL (70-99) Medications Current Medications Diphenhydramine HCl (Benadryl) 25 mg PRN Q6HRS PRN PO ITCHING; Start 03/16/18 at 15:00 Info (PHARMACY MONITORING -- do not chart) 1 each PRN DAILY PRN MC SEE COMMENTS ; Start 03/16/18 at 17:45 Info (PHARMACY MONITORING -- do not chart) 1 each PRN DAILY PRN MC SEE COMMENTS ; Start 03/16/18 at 17:45; Status UNV Sodium Chloride 1,000 ml @ 400 mls/hr Q2H30M PRN IV PATENCY; Start 03/16/18 at 13:00; Stop 03/17/18 at 00:59; Status DC Sodium Chloride 1,000 ml @ 1,000 mls/hr Q1H PRN IV hypotension; Start at 13:00; Stop 03/16/18 at 18:59; Status DC Vitals/I & O Vital Sign - Last 24 Hours 03/16/18 03/16/18 03/16/18 03/16/18 14:22 17:59 18:00 19:45 Temp 97.0 98.3 97.0 98.3 Pulse 69 69 69 66 Resp 18 20 B/P (MAP) 177/55 (95) 177/55 177/55 134/65 (88) Pulse Ox 98 96 O2 Delivery Room Air Room Air 03/16/18 03/16/18 03/16/18 03/16/18 20:00 22:18 22:19 23:00 Temp 98.3 98.3 Pulse 66 65 Resp 20 20 B/P (MAP) 134/65 144/66 (92) Pulse Ox 96 95 O2 Delivery Room Air Room Air Room Air 03/16/18 03/17/18 03/17/18 03/17/18 23:18 03:00 07:39 07:50 Temp 98.3 97.8 98.3 97.8 Pulse 68 66 Resp 18 22 22 B/P (MAP) 158/71 (100) 167/76 (106) Pulse Ox 96 98 97 O2 Delivery Room Air Room Air Room Air Room Air 03/17/18 03/17/18 03/17/18 03/17/18 07:54 07:54 07:55 11:04 Temp 98.1 98.1 Pulse 66 66 66 63 Resp 20 B/P (MAP) 167/76 167/76 167/76 147/61 (89) Pulse Ox 97 O2 Delivery Room Air AGA LIU MD Mar 17, 2018 11:10
--- NOTE | 2018-03-17 13:01 | PDOC ---
PROGRESS NOTES Chief Complaint Chief Complaint Failure to thrive/self-neglect at home Generalized weakness-agreeable to SNU or rehabilitation-she actually wants it Recent pacer placement, by cards for . ICM/chronic systolic CHF: EF at 30%. NYHA 2-3. S/P AICD: Biotronik, n CAD: hx of PCI/stent to RCA, clinically stable HTN: HLP ESRD TTHSAT - HD per nephrology DM2 - on insulin, controlled History of Present Illness History of Present Illness SHe has no complaints Would want to go back to [facility] on discharge-I am unsure if she has SNU days left Cleared by cardiology to DC Plan: CPM, social work HCR screen Home meds have been reconciled since admission Vitals Vitals Vital Signs Date Time Temp Pulse Resp B/P (MAP) Pulse Ox O2 Delivery O2 Flow Rate FiO2 03/17/18 11:04 98.1 63 20 147/61 (89) 97 Room Air 98.1 Physical Exam General: Alert, Oriented X3 Heart: Regular rate Lungs: Clear Abdomen: Soft, No tenderness Extremities: No edema Labs LABS Laboratory Tests Test 03/16/18 17:56 03/16/18 21:49 03/17/18 08:13 03/17/18 11:22 Glucose (Fingerstick) 65 mg/dL (70-99) 184 mg/dL (70-99) 249 mg/dL (70-99) 201 mg/dL (70-99) Review of Systems Review of Systems A 14 point ROS was completed with the following noted as positive: Other systems reviewed and negative. \CONSTITUTIONAL: No fever or chills EYES: No recent changes SKIN: No rash or itching CARDIOVASCULAR: No chest pain, syncope, palpitations, or edema RESPIRATORY: No SOB or cough GASTROINTESTINAL: No nausea, vomiting or abdominal pain NEUROLOGICAL: No headaches or weakness ENDOCRINE: No cold or heat intolerance GENITOURINARY: No urgency or frequency of urination MUSCULOSKELETAL: No back pain or joint pain LYMPHATICS: No enlarged lymph nodes PSYCHIATRIC: No anxiety or depression Assessment and Plan Assessmemt and Plan Problems Medical Problems: (1) Chest pain Status: Acute Comment Review of Relevant I have reviewed the following items qing (where applicable) has been applied. Labs Laboratory Tests Test 03/15/18 17:40 03/15/18 21:55 03/16/18 07:34 03/16/18 08:40 White Blood Count 8.6 x10^3/uL (4.0-11.0) 7.0 x10^3/uL (4.0-11.0) Red Blood Count 2.87 x10^6/uL (3.50-5.40) 3.00 x10^6/uL (3.50-5.40) Hemoglobin 9.6 g/dL (12.0-15.5) 10.1 g/dL (12.0-15.5) Hematocrit 28.8 % (36.0-47.0) 29.9 % (36.0-47.0) Mean Corpuscular Volume 100 fL (79-100) 100 fL (79-100) Mean Corpuscular Hemoglobin 33 pg (25-35) 34 pg (25-35) Mean Corpuscular Hemoglobin Concent 33 g/dL (31-37) 34 g/dL (31-37) Red Cell Distribution Width 15.9 % (11.5-14.5) 15.8 % (11.5-14.5) Platelet Count 106 x10^3/uL (140-400) 119 x10^3/uL (140-400) Neutrophils (%) (Auto) 85 % (31-73) 83 % (31-73) Lymphocytes (%) (Auto) 4 % (24-48) 6 % (24-48) Monocytes (%) (Auto) 8 % (0-9) 9 % (0-9) Eosinophils (%) (Auto) 1 % (0-3) 1 % (0-3) Basophils (%) (Auto) 1 % (0-3) 1 % (0-3) Neutrophils # (Auto) 7.3 x10^3uL (1.8-7.7) 5.8 x10^3uL (1.8-7.7) Lymphocytes # (Auto) 0.4 x10^3/uL (1.0-4.8) 0.4 x10^3/uL (1.0-4.8) Monocytes # (Auto) 0.7 x10^3/uL (0.0-1.1) 0.7 x10^3/uL (0.0-1.1) Eosinophils # (Auto) 0.1 x10^3/uL (0.0-0.7) 0.1 x10^3/uL (0.0-0.7) Basophils # (Auto) 0.1 x10^3/uL (0.0-0.2) 0.1 x10^3/uL (0.0-0.2) Prothrombin Time 15.1 SEC (11.7-14.0) Prothromb Time International Ratio 1.2 (0.8-1.1) Activated Partial Thromboplast Time 31 SEC (24-38) Sodium Level 135 mmol/L (136-145) 133 mmol/L (136-145) Potassium Level 4.5 mmol/L (3.5-5.1) 4.7 mmol/L (3.5-5.1) Chloride Level 100 mmol/L (98-107) 101 mmol/L (98-107) Carbon Dioxide Level 22 mmol/L (21-32) 21 mmol/L (21-32) Anion Gap 13 (6-14) 11 (6-14) Blood Urea Nitrogen 39 mg/dL (7-20) 44 mg/dL (7-20) Creatinine 4.4 mg/dL (0.6-1.0) 5.0 mg/dL (0.6-1.0) Estimated GFR (Cockcroft-Gault) 11.6 10.0 Glucose Level 300 mg/dL (70-99) 234 mg/dL (70-99) Calcium Level 8.3 mg/dL (8.5-10.1) 8.2 mg/dL (8.5-10.1) Total Bilirubin 0.7 mg/dL (0.2-1.0) Direct Bilirubin 0.3 mg/dL (0.0-0.2) Aspartate Amino Transf (AST/SGOT) 23 U/L (15-37) Alanine Aminotransferase (ALT/SGPT) 15 U/L (14-59) Alkaline Phosphatase 129 U/L (46-116) Troponin I Quantitative 0.056 ng/mL (0.000-0.055) ZS-[id number]-[id number]-Type Natriuretic Peptide > 46961 pg/mL (0-449) Total Protein 6.7 g/dL (6.4-8.2) Albumin 3.1 g/dL (3.4-5.0) Lipase 157 U/L (73-393) Glucose (Fingerstick) 304 mg/dL (70-99) 216 mg/dL (70-99) Test 03/16/18 11:29 03/16/18 17:56 03/16/18 21:49 03/17/18 08:13 Glucose (Fingerstick) 288 mg/dL (70-99) 65 mg/dL (70-99) 184 mg/dL (70-99) 249 mg/dL (70-99) Test 03/17/18 11:22 Glucose (Fingerstick) 201 mg/dL (70-99) Laboratory Tests Test 03/16/18 17:56 03/16/18 21:49 03/17/18 08:13 03/17/18 11:22 Glucose (Fingerstick) 65 mg/dL (70-99) 184 mg/dL (70-99) 249 mg/dL (70-99) 201 mg/dL (70-99) Medications Current Medications Ondansetron HCl (Zofran) 4 mg PRN Q6HRS PRN IV NAUSEA/VOMITING 1ST CHOICE; Start 03/15/18 at 17:30 Prochlorperazine Edisylate (Compazine) 10 mg PRN Q6HRS PRN IV NAUSEA/VOMITING 2ND CHOICE; Start 03/15/18 at 17:30 Prochlorperazine (Compazine) 25 mg PRN Q12HR PRN [place] NAUSEA/VOMITING; Start at 17:30 Al Hydroxide/Mg Hydroxide (Mylanta Plus Xs) 30 ml PRN Q3HRS PRN PO HEARTBURN / GAS; Start 03/15/18 at 17:30; Status UNV Calcium Carbonate/ Glycine (Tums) 500 mg PRN Q3HRS PRN PO UPSET STOMACH; Start 03/15/18 at 17:30 Oxycodone HCl (Roxicodone) 5 mg PRN Q3HRS PRN PO BREAKTHROUGH PAIN, SEE COMMENT ; Start 03/15/18 at 17:30 Oxycodone/ Acetaminophen (Percocet 5/325) 1 tab PRN Q4HRS PRN PO MILD PAIN, 1ST CHOICE; Start 03/15/18 at 17:30 Acetaminophen (Tylenol) 650 mg PRN Q6HRS PRN PO Headaches, Temp > 101.5F; Start 03/15/18 at 17:30 Docusate Sodium (Colace) 100 mg BID PO Last administered on 03/17/18at 07:54; Start 03/15/18 at 21:00 Magnesium Hydroxide (Milk Of Magnesia) 2,400 mg PRN Q12HR PRN PO CONSTIPATION 1ST CHOICE; Start 03/15/18 at 17:30; Status Cancel Lactulose (Lactulose) 20 gm PRN Q12HR PRN PO CONSTIPATION 2ND CHOICE; Start at 17:30 Bisacodyl (Dulcolax Supp) 10 mg PRN DAILY PRN [place] CONSTIPATION; Start 03/15/18 at 17:30 Enoxaparin Sodium (Lovenox 40mg Syringe) 40 mg Q24H SQ ; Start 03/15/18 at 17: 30; Status UNV Fentanyl Citrate (Fentanyl 2ml Vial) 50 mcg PRN Q2HR PRN IV PAIN; Start at 17:30 Tramadol HCl (Ultram) 50 mg PRN Q6HRS PRN PO PAIN MOD TO SEVERE 1ST CHOICE Last administered on 03/16/18at 22:18; Start 03/15/18 at 17:30 Diphenhydramine HCl (Benadryl) 25 mg PRN QHS PRN PO INSOMNIA 1ST CHOICE Last administered on 03/16/18at 22:18; Start 03/15/18 at 17:30 Aspirin (Children'S Aspirin) 81 mg DAILY PO Last administered on 03/17/18at 07: 53; Start 03/16/18 at 09:00 Atorvastatin Calcium (Lipitor) 20 mg HS PO Last administered on 03/16/18at 22: 17; Start 03/15/18 at 21:00 Carvedilol (Coreg) 6.25 mg BIDWMEALS PO Last administered on 03/17/18at 07:54; Start 03/16/18 at 08:00 Ergocalciferol (Vitamin D2) 50,000 unit WEEKLY PO Last administered on at 17:59; Start 03/16/18 at 09:00 Vitamin B Complex/ Vitamin C (Johana-Manuel) 1 tab DAILY PO Last administered on at 07:54; Start 03/16/18 at 09:00 Furosemide (Lasix) 40 mg DAILY PO Last administered on 03/17/18 07:53; Start 03/16/18 at 09:00 Insulin Glargine (Lantus) 5 units QHS SQ Last administered on 03/16/18at 22:31 ; Start 03/15/18 at 21:00 Isosorbide Mononitrate (Imdur) 30 mg DAILY PO Last administered on 03/17/18 07:54; Start 03/16/18 at 09:00 Levothyroxine Sodium (Synthroid) 75 mcg DAILYAC PO Last administered on 07:53; Start 03/16/18 at 07:30 Trazodone HCl (Desyrel) 50 mg PRN QHS PRN PO INSOMNIA 2ND CHOICE; Start at 17:45 Non-Formulary Medication (Albuterol Sulfate (Proair Hfa Inhaler)) 1 puff PRN Q6HRS PRN INH SHORTNESS OF BREATH; Start 03/15/18 at 17:45; Status UNV Hydralazine HCl (Apresoline) 50 mg BID PO Last administered on 03/17/18at 07:55 ; Start 03/15/18 at 21:00 Sertraline HCl (Zoloft) 25 mg DAILY PO Last administered on 03/17/18 07:54; Start 03/16/18 at 09:00 Non-Formulary Medication (Sucralfate (Carafate)) 1 gm TIDAC PO ; Start at 07:30; Stop 03/16/18 at 07:30; Status DC Pantoprazole Sodium (Protonix) 40 mg BIDAC PO Last administered on 03/17/18at 07:53; Start 03/16/18 at 07:30 Insulin Human Lispro (HumaLOG) 0-9 UNITS TIDWMEALS SQ Last administered on at 12:09; Start 03/16/18 at 08:00 Dextrose (Dextrose 50%-Water Syringe) 12.5 gm PRN Q15MIN PRN IV SEE COMMENTS; Start 03/15/18 at 17:45 Heparin Sodium (Porcine) (Heparin Sodium) 5,000 unit Q8HRS SQ Last administered on 03/16/18at 18:04; Start 03/15/18 at 22:00 Albuterol Sulfate (Ventolin Neb Soln) 2.5 mg PRN Q6HRS PRN NEB SHORTNESS OF BREATH; Start 03/15/18 at 19:30 Diphenhydramine HCl (Benadryl) 25 mg PRN Q6HRS PRN PO ITCHING; Start 03/16/18 at 15:00 Sodium Chloride 1,000 ml @ 1,000 mls/hr Q1H PRN IV hypotension; Start at 13:00; Stop 03/16/18 at 18:59; Status DC Sodium Chloride 1,000 ml @ 400 mls/hr Q2H30M PRN IV PATENCY; Start 03/16/18 at 13:00; Stop 03/17/18 at 00:59; Status DC Info (PHARMACY MONITORING -- do not chart) 1 each PRN DAILY PRN MC SEE COMMENTS ; Start 03/16/18 at 17:45; Status UNV Info (PHARMACY MONITORING -- do not chart) 1 each PRN DAILY PRN MC SEE COMMENTS ; Start 03/16/18 at 17:45 Active Scripts Active Isosorbide Mononitrate Er (Isosorbide Mononitrate) 30 Mg Tab.er.24h 30 Mg PO DAILY 30 Days Proair Hfa Inhaler (Albuterol Sulfate) 8.5 Gm Hfa.aer.ad 1 Puff INH PRN Q6HRS PRN 30 Days Trazodone Hcl 50 Mg Tablet 50 Mg PO PRN QHS PRN 30 Days Carafate (Sucralfate) 1 Gm Tablet 1 Gm PO TIDAC 30 Days Vitamin D2 (Ergocalciferol (Vitamin D2)) 50,000 Unit Capsule 50,000 Unit PO WEEKLY 30 Days [Pantoprazole] 40 MG Tablet.dr 40 Mg PO BIDAC 30 Days Lantus Solostar (Insulin Glargine,Hum.rec.anlog) 100 Unit/1 Ml Insuln.pen 5 Units SQ QHS 30 Days Carvedilol 3.125 Mg Tablet 6.25 Mg PO BIDWMEALS 30 Days Sertraline Hcl 25 Mg Tablet 25 Mg PO DAILY 30 Days Reported Humalog (Insulin Lispro) 100 Unit/1 Ml Cartridge 0-100 Unit SQ TIDAC Hydralazine Hcl 50 Mg Tablet 50 Mg PO BID Lipitor (Atorvastatin Calcium) 20 Mg Tablet 20 Mg PO HS Aspirin 81 Mg Tab.chew 81 Mg PO DAILY Synthroid (Levothyroxine Sodium) 75 Mcg Tablet 75 Mcg PO DAILYAC Nephro-Manuel Tablet (Folic Acid/Vitamin B Comp W-C) 0.8 Mg Tablet 0.8 Mg PO DAILY Lasix (Furosemide) 40 Mg Tablet 40 Mg PO DAILY Vitals/I & O Vital Sign - Last 24 Hours 03/16/18 03/16/18 03/16/18 03/16/18 14:22 17:59 18:00 19:45 Temp 97.0 98.3 97.0 98.3 Pulse 69 69 69 66 Resp 18 20 B/P (MAP) 177/55 (95) 177/55 177/55 134/65 (88) Pulse Ox 98 96 O2 Delivery Room Air Room Air 03/16/18 03/16/18 03/16/18 03/16/18 20:00 22:18 22:19 23:00 Temp 98.3 98.3 Pulse 66 65 Resp 20 20 B/P (MAP) 134/65 144/66 (92) Pulse Ox 96 95 O2 Delivery Room Air Room Air Room Air 03/16/18 03/17/18 03/17/18 03/17/18 23:18 03:00 07:39 07:50 Temp 98.3 97.8 98.3 97.8 Pulse 68 66 Resp 18 22 22 B/P (MAP) 158/71 (100) 167/76 (106) Pulse Ox 96 98 97 O2 Delivery Room Air Room Air Room Air Room Air 03/17/18 03/17/18 03/17/18 03/17/18 07:54 07:54 07:55 11:04 Temp 98.1 98.1 Pulse 66 66 66 63 Resp 20 B/P (MAP) 167/76 167/76 167/76 147/61 (89) Pulse Ox 97 O2 Delivery Room Air MARYCHUY SINGH MD Mar 17, 2018 13:00
[2018-03-17 14:37] VITALS: BP 153/64
[2018-03-17 19:00] VITALS: BP 141/48
[2018-03-17] MEDS: ATORVASTATIN CALCIUM 20 MG TABLET PO SCH (21:13)
[2018-03-17] MEDS: INSULIN GLARGINE 300 UNITS/3 ML INSULN.PEN. SQ SCH (21:21)
[2018-03-17 23:00] VITALS: BP 156/60
[2018-03-17] MEDS: diphenhydrAMINE HCL 25 MG CAPSULE PO PRN (23:12)
[2018-03-17] MEDS: traMADol 50 MG TABLET PO PRN (23:15)
[2018-03-18 03:00] VITALS: BP 151/64
[2018-03-18] MEDS: HEPARIN for SUB-Q USE 5,000 UNIT/ML VIAL. SQ SCH ×2 (05:15→14:00)
[2018-03-18 05:38] LABS: HEMATOCRIT 28.2 % (36.0-47.0); HEMOGLOBIN 9.4 g/dL (12.0-15.5)
[2018-03-18 05:44] LABS: CREATININE 4.5 mg/dL (0.6-1.0); GFR 11.3; POTASSIUM 4.6 mmol/L (3.5-5.1)
[2018-03-18] MEDS: PANTOPRAZOLE 40 MG TABLET.DR. PO SCH ×2 (07:36→17:32)
[2018-03-18] MEDS: LEVOTHYROXINE 75 MCG TABLET PO SCH (07:36)
[2018-03-18 07:53] VITALS: BP 162/69
[2018-03-18] MEDS: DOCUSATE SODIUM 100 MG CAPSULE. PO SCH (08:36)
[2018-03-18] MEDS: ASPIRIN CHEWABLE 81 MG TABLET. PO SCH (08:36)
[2018-03-18] MEDS: FOLIC/VIT B COMP W-C (RENAL) TABLET. PO SCH (08:36)
[2018-03-18] MEDS: SERTRALINE 25 MG TABLET. PO SCH (08:36)
[2018-03-18] MEDS: CARVEDILOL 6.25 MG TABLET. PO SCH ×2 (08:37→17:33)
[2018-03-18] MEDS: FUROSEMIDE 40 MG TABLET. PO SCH (08:37)
[2018-03-18] MEDS: ISOSORBIDE MONONITRATE ER 30 MG TAB.ER.24H PO SCH (08:37)
[2018-03-18] MEDS: INSULIN LISPRO 300 UNITS/3 ML INSULN.PEN. SQ SCH ×3 (08:42→17:35)
--- NOTE | 2018-03-18 10:14 | DISCH ---
DISCHARGE DISCHARGE INFORMATION: DISCHARGE DATE: Mar 18, 2018 FINAL DIAGNOSIS Problems Medical Problems: (1) Chest pain Status: Acute CONDITION ON DISCHARGE: Stable CODE STATUS: Code Status: Full SENIOR LIVING: SNF STAY <30 DAYS: Yes POST DISCHARGE ORDERS: ACTIVITY ORDERS: Activity as tolerated WEIGHT BEARING STATUS: As tolerated BATHING ORDERS: No Tub Bath until see Dr. MCLEAN AFTER DISCHARGE: Renal WOUND/INCISION CARE: Ice to area for comfort CHECKS AFTER DISCHARGE: CHECKS AFTER DISCHARGE: Check blood press - daily, Check blood sugar, ac/hs, Weigh Yourself Daily TREATMENT/EQUIPMENT ORDERS: ADAPTIVE EQUIPMENT NEEDED: Front wheeled walker (with arm support/sling) RESPIRATORY EQUIPMENT NEEDED: Oxygen Physical Therapy For: Evalulation/Treatment Occupational Therapy For: Evaluation/Treatment DISCHARGE MEDICATIONS: Home Meds Active Scripts Oxycodone Hcl/Acetaminophen (OXYCODONE-ACETAMINOPHEN 5-325) 1 Each Tablet, 1 TAB PO PRN Q4HRS PRN for MILD PAIN, 1ST CHOICE, #30 TAB Prov:JAMEL VALENZUELA MD 03/18/18 Isosorbide Mononitrate (ISOSORBIDE MONONITRATE ER) 30 Mg Tab.er.24h, 30 MG PO DAILY for 30 Days, #30 TAB.SR Prov:VEDA SPRING SPINNER FIXER 03/13/18 Albuterol Sulfate (PROAIR HFA INHALER) 8.5 Gm Hfa.aer.ad, 1 PUFF INH PRN Q6HRS PRN for SHORTNESS OF BREATH for 30 Days, INHALER 0 Refills Prov:MARYCHUY SINGH MD 02/04/18 Trazodone Hcl (TRAZODONE HCL) 50 Mg Tablet, 50 MG PO PRN QHS PRN for INSOMNIA for 30 Days, TAB 4 Refills Prov:MARYCHUY SINGH MD 02/04/18 Sucralfate (CARAFATE) 1 Gm Tablet, 1 GM PO TIDAC for 30 Days, #90 TAB Prov:MALCOM HAWKINS MD 10/27/17 Ergocalciferol (Vitamin D2) (VITAMIN D2) 50,000 Unit Capsule, 19327 UNIT PO WEEKLY for 30 Days, #3 CAP Prov:MALCOM HAWKINS MD 10/27/17 [Pantoprazole] 40 MG TABLET.DR Milligan Conflict Check, 40 MG PO BIDAC for 30 Days Prov:MALCOM HAWKINS MD 10/27/17 Insulin Glargine,Hum.rec.anlog (LANTUS SOLOSTAR) 100 Unit/1 Ml Insuln.pen, 5 UNITS SQ QHS for 30 Days, #1 EACH Prov:BRENDA PABON MD 10/08/17 Carvedilol (CARVEDILOL) 3.125 Mg Tablet, 6.25 MG PO BIDWMEALS for 30 Days, #120 TAB 6 Refills Prov:BRENDA PABON MD 02/17/17 Sertraline Hcl (SERTRALINE HCL) 25 Mg Tablet, 25 MG PO DAILY for 30 Days, TAB 6 Refills Prov:BRENDA PABON MD 12/03/15 Reported Medications Insulin Lispro (HUMALOG) 100 Unit/1 Ml Cartridge, 0-100 UNIT SQ TIDAC, EACH 03/11/18 Hydralazine Hcl (HYDRALAZINE HCL) 50 Mg Tablet, 50 MG PO BID, TAB 02/01/18 Atorvastatin Calcium (LIPITOR) 20 Mg Tablet, 20 MG PO HS for FOR CHOLESTEROL, # 30 TAB 0 Refills 04/06/14 Aspirin (ASPIRIN) 81 Mg Tab.chew, 81 MG PO DAILY, TAB.CHEW 03/05/14 Levothyroxine Sodium (SYNTHROID) 75 Mcg Tablet, 75 MCG PO DAILYAC for THYROID SUPPLEMENT, #30 TAB 0 Refills 11/22/13 Folic Acid/Vitamin B Comp W-C (NEPHRO-GEETA TABLET) 0.8 Mg Tablet, 0.8 MG PO DAILY 11/22/13 Furosemide (LASIX) 40 Mg Tablet, 40 MG PO DAILY, TAB 11/22/13 Discontinued Reported Medications Clopidogrel Bisulfate (PLAVIX) 75 Mg Tablet, 75 MG PO DAILY for TO PREVENT BLOOD CLOTS, #30 TAB 0 Refills 03/05/14 Sevelamer Carbonate (RENVELA) 800 Mg Tablet, 800 MG PO TIDAC 11/22/13 JAMEL VALENZUELA MD Mar 18, 2018 10:14
[2018-03-18] MEDS ORDERED: OXYC1TAB7 PO (10:16)
[2018-03-18 10:34] VITALS: BP 150/63
[2018-03-18 15:11] VITALS: BP 155/66
--- NOTE | 2018-03-18 16:22 | RAD ---
MR#: [id number] Date of Study: 03/18/2018 Ordering Physician: ALEX MENDOZA, Referring Physician: MARYCHUY SINGH, Tech: Ronnie Landaverde MBA, RDMS, RVT, RDCS, RTR APPROVED REPORT Left Upper Extremity Venous Study for DVT. Patient Location: IN-PATIENT Indications Upper Extremity Edema: Left Vein Imaging (Left) IJV (L): Spontaneous SCV (L): Spontaneous Axillary (L): Compressible Brachial (L): Compressible Basilic (L): Compressible Cephalic (L): Compressible Radial (L): Spontaneous Ulnar (L): Spontaneous Findings Grayscale images of the left internal jugular, axillary, cephalic, brachial, basilic, radial and ulna r veins do not reveal any obvious evidence of thrombus Color flow of the left arm veins are unremarkable. There is a complex fluid collection along the anterior margin of the pacemaker measuring a proximally 5.3 x 3.4 x 0.75 cm. Critical Notification Critical Value: No <Conclusion> No significant evidence of left upper extremity DVT with complex fluid collection along the lines of the pacemaker noted. That fluid collection may simply be resolving postoperative changes. Signed by : Bam Shaffer, Electronically Approved : 03/18/2018 16:21:16
--- NOTE | 2018-03-18 16:54 | PDOC ---
PROGRESS NOTES Subjective Subjective No new complaints. Objective Objective Vital Signs Date Time Temp Pulse Resp B/P (MAP) Pulse Ox O2 Delivery O2 Flow Rate FiO2 03/18/18 15:11 98.0 68 20 155/66 (95) 98 Room Air 98.0 Intake and Output 03/18/18 07:00 Intake Total 400 ml Output Total 0 ml Balance 400 ml Intake Oral 400 ml Output Urine Total 0 ml Physical Exam Abdomen: Soft, No tenderness Heart: Regular rate Extremities: No edema General: Alert, Oriented X3, Other (Echymosis left forearm, axilla and arm) HEENT: Atraumatic, PERRLA Lungs: Clear to auscultation MUSCULOSKELETAL: No deformity, No swelling Neuro: Normal gait, Normal speech, Strength at 5/5 X4 ext, Normal tone, Sensation intact, Cranial nerves 3-12 NL, Reflexes 2+ Psych/Mental Status: Mood NL Assessment Assessment 1. Ischemic cardiomyopathy, chronic systolic heart failure s/p recent AICD implantation for primary prevention SCD. Incision looks good. Small hematoma noted with ecchymosis surrounding it and extending into arm (tracking down tissue planes) without any evidence of cellulitis. Since that appears to be edema of the left forearm, we will check venous ultrasound to rule out DVT prior to discharge. Cardiomyopathy clinically well compensated. Recent device check showed normal function. Chest x-ray did not show any acute cardiopulmonary process. Continue current medical regimen and plan SNF transfer later today. 2. Coronary artery disease s/p PCI/stent to RCA, stable and chest pain-free. Continue current secondary prevention measures. 3. Hypertension: Blood pressure better controlled since admission. 4. Hyperlipidemia: Statins 5. Diabetes mellitus type 2: Treat per IM 6. End-stage renal disease: Hemodialysis per nephrology team Plan Plan of Care Problems Medical Problems: (1) Chest pain Status: Acute Comment Review of Relevant I have reviewed the following items qing (where applicable) has been applied. Labs Laboratory Tests Test 03/17/18 17:23 03/17/18 19:36 03/18/18 03:45 03/18/18 07:42 Glucose (Fingerstick) 224 mg/dL (70-99) 243 mg/dL (70-99) 192 mg/dL (70-99) Hemoglobin 9.4 g/dL (12.0-15.5) Hematocrit 28.2 % (36.0-47.0) Mean Corpuscular Hemoglobin Concent 33 g/dL (31-37) Sodium Level 132 mmol/L (136-145) Potassium Level 4.6 mmol/L (3.5-5.1) Chloride Level 96 mmol/L (98-107) Carbon Dioxide Level 26 mmol/L (21-32) Anion Gap 10 (6-14) Blood Urea Nitrogen 40 mg/dL (7-20) Creatinine 4.5 mg/dL (0.6-1.0) Estimated GFR (Cockcroft-Gault) 11.3 Glucose Level 213 mg/dL (70-99) Calcium Level 8.0 mg/dL (8.5-10.1) Test 03/18/18 10:56 Glucose (Fingerstick) 199 mg/dL (70-99) Vitals/I & O Vital Sign - Last 24 Hours 03/17/18 03/17/18 03/17/18 03/17/18 17:23 19:00 19:40 21:14 Temp 97.4 97.4 Pulse 64 61 61 Resp 18 B/P (MAP) 153/64 141/48 (79) 141/48 Pulse Ox 98 O2 Delivery Room Air Room Air 03/17/18 03/17/18 03/18/18 03/18/18 23:00 23:15 00:15 03:00 Temp 98.2 98.1 98.2 98.1 Pulse 64 62 Resp 18 20 20 18 B/P (MAP) 156/60 (92) 151/64 (93) Pulse Ox 99 100 100 O2 Delivery Room Air Room Air Room Air Room Air 03/18/18 03/18/18 03/18/18 03/18/18 07:53 08:37 08:37 08:37 Temp 98.2 98.2 Pulse 63 63 71 Resp 20 B/P (MAP) 162/69 (100) 162/69 169/69 Pulse Ox 100 O2 Delivery Room Air 03/18/18 03/18/18 10:34 15:11 Temp 97.8 98.0 97.8 98.0 Pulse 66 68 Resp 18 20 B/P (MAP) 150/63 (92) 155/66 (95) Pulse Ox 100 98 O2 Delivery Room Air Room Air Intake and Output 03/17/18 03/17/18 03/18/18 15:00 23:00 07:00 Intake Total 200 ml 200 ml Output Total 0 ml Balance 200 ml 200 ml 0 ml AGA LIU MD Mar 18, 2018 16:54
[2018-03-18 17:33] VITALS: BP 155/66
== END 2018-03-18 18:38 | DRG 919 ==
LOC: ER 15:33 → CVICU 18:16
PROVIDERS: ADMIT Internal Medicine; ATTEND Internal Medicine
PROC: 5A1D70Z Performance of Urinary Filtration, Intermittent, Less than 6 Hours Per Day (ICD-10-PCS; principal; 2018-03-16)
PROC: 4B02XTZ Measurement of Cardiac Defibrillator, External Approach (ICD-10-PCS; 2018-03-16)
DX: L76.32 Postprocedural hematoma of skin and subcutaneous tissue following other procedure (principal); N18.6 End stage renal disease; I13.2 Hypertensive heart and chronic kidney disease with heart failure and with stage 5 chronic kidney disease, or end stage renal disease; I50.22 Chronic systolic (congestive) heart failure; R62.7 Adult failure to thrive; I25.5 Ischemic cardiomyopathy; E11.22 Type 2 diabetes mellitus with diabetic chronic kidney disease; E78.5 Hyperlipidemia, unspecified; E89.0 Postprocedural hypothyroidism; I25.10 Atherosclerotic heart disease of native coronary artery without angina pectoris; K21.9 Gastro-esophageal reflux disease without esophagitis; Y83.1 Surgical operation with implant of artificial internal device as the cause of abnormal reaction of the patient, or of later complication, without mention of misadventure at the time of the procedure; Z79.4 Long term (current) use of insulin; Z83.3 Family history of diabetes mellitus; Z85.3 Personal history of malignant neoplasm of breast; Z86.73 Personal history of transient ischemic attack (TIA), and cerebral infarction without residual deficits; Z90.710 Acquired absence of both cervix and uterus; Z95.5 Presence of coronary angioplasty implant and graft; Z95.810 Presence of automatic (implantable) cardiac defibrillator; Z99.2 Dependence on renal dialysis; Z90.13 Acquired absence of bilateral breasts and nipples; Z90.49 Acquired absence of other specified parts of digestive tract; Z88.8 Allergy status to other drugs, medicaments and biological substances; Z91.048 Other nonmedicinal substance allergy status
CPT/HCPCS: 36415; 71045; 80048; 80076; 82962; 83690; 83880; 84484; 85014; 85018; 85025; 85610; 85730; 93005; 93971; J1644; J1815; Q0163; 99285-25

== ENCOUNTER → 2018-04-19 | Outpatient (CLI) | payer MEDICARE, OTHER ==
[~2018-04-19] MED LIST changes: +CARV3.1210 PO; -CARV3.122 PO; +HYDR-3164 PO; -HYDR-971 PO; -OXYC-323 PO; +OXYC1TAB15 PO; +OXYC1TAB7 PO
[2018-04-19 10:10] LABS: BASO % 0 % (0-3); EOS # 0.1 x10^3/uL (0.0-0.7); EOS % 1 % (0-3); HEMATOCRIT 30.8 % (36.0-47.0); HEMOGLOBIN 10.2 g/dL (12.0-15.5); LYMPH # 0.4 x10^3/uL (1.0-4.8); LYMPH % 7 % (24-48); MEAN CORPUSCULAR HEMOGLOBIN 34 pg (25-35); MEAN CORPUSCULAR HGB CONC 33 g/dL (31-37); MEAN CORPUSCULAR VOLUME 104 fL (79-100); MONO # 0.5 x10^3/uL (0.0-1.1); MONO % 9 % (0-9); NEUT # 5.1 x10^3uL (1.8-7.7); NEUT % 83 % (31-73); PLATELET COUNT 156 x10^3/uL (140-400); RED BLOOD COUNT 2.96 x10^6/uL (3.50-5.40); RED CELL DISTRIBUTION WIDTH 17.8 % (11.5-14.5); WHITE BLOOD COUNT 6.1 x10^3/uL (4.0-11.0)
[2018-04-19 10:37] LABS: CALCIUM 8.6 mg/dL (8.5-10.1); CREATININE 4.3 mg/dL (0.6-1.0); GFR 11.9; POTASSIUM 4.6 mmol/L (3.5-5.1)
[2018-04-19 10:43] LABS: CHOLESTEROL/HDL RATIO 1.5
== END | disposition home or self-care (01) ==
LOC: SPEC 10:00
PROVIDERS: ATTEND Family Medicine
DX: E11.9 Type 2 diabetes mellitus without complications (principal); E03.9 Hypothyroidism, unspecified; Z79.899 Other long term (current) drug therapy
CPT/HCPCS: 36415; 80048; 80061; 82306; 83036; 84443; 85025

== ENCOUNTER → 2018-05-24 | Outpatient (CLI) | payer MEDICARE, OTHER ==
[~2018-05-24] MED LIST changes: +ALBU2.5V8 INH; -PROAIR HFA8.5 GM INH
[2018-05-24 11:15] VITALS: BP 147/70
[2018-05-24 11:45] VITALS: BP 140/68
--- NOTE | 2018-05-24 12:00 | NUR ---
Patient was monitored by this RN during MRI and Rivas from [employer] was also present. No problems during test. Patient was taken to radiology waiting room by wheelchair.
--- NOTE | 2018-05-24 12:53 | RAD ---
MRI Lumbar Spine without contrast History: Low back pain, bilateral leg weakness Technique: Multiplanar, multi sequential noncontrast MR imaging was performed of the lumbar spine. Comparison: March 13, 2016 Findings: There is some motion degradation. There is minimal grade 1 anterior spondylolisthesis L5-S1 as seen previously. Vertebral body stature is similar. There is again superior L4 Schmorl's node. Conus terminates at L1. There is again mild degenerative disc disease L4-5 and L5-S1, mild disc desiccation more superiorly. There is some T2 and STIR hyperintense lesion of the right L3 vertebral body. There is again large area of heterogeneous signal of the L2 vertebral body with associated STIR hyperintense signal also present previously. Focus of STIR hyperintense signal of the left superior L1 vertebral body is also stable as is a small focus anteriorly of S1. Both kidneys are atrophic and there are multiple cystic foci present bilaterally. There is nonspecific prominent edema of the posterior subcutaneous fat of the lower back. L1-L2: Spinal canal and neural foramina are adequate. There is mild facet hypertrophic change. L2-L3: There is mild buckling of the ligamentum flavum. Neural foramina and spinal canal are overall adequate. L3-L4: There is mild buckling of the ligamentum flavum. Neural foramina are overall adequate. Spinal canal is overall adequate. L4-L5: There is moderate to severe buckling of the ligamentum flavum, mild to moderate facet degenerative change, mild prominence of posterior epidural fat. There is again moderate left lateral recess stenosis, mild narrowing of the central canal. There is moderate narrowing of the left neural foramen, right neural foramen adequate. L5-S1: There is again somewhat heterogeneous T2 hyperintense signal resulting in smooth bony erosion of the posterior left L5 vertebral body and widening of the left neural foramen, also somewhat heterogeneously slightly hyperintense on the T1 sequence. This is difficult to accurately measure, estimated about 2.5 cm transverse by 1.8 cm AP by 1.6 cm CC not convincingly changed. There is again facet degenerative change and buckling of the ligamentum flavum. Central canal is overall adequate. There is again left lateral recess stenosis by heterogeneous signal abnormality in the left lateral recess. Right neural foramen is overall adequate. Impression: 1. There is again somewhat heterogeneous signal abnormality in the anterior left lateral recess at L5 with smooth bony erosion of the posterior left L5 vertebral body and widening of the left L5-S1 neural foramen. 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 2. There are again multilevel foci of marrow signal abnormality although stable, may be due to hemangiomas. 3. There is again moderate left lateral recess stenosis L4-5. There is moderate narrowing of the left L4-5 neural foramen. 4. Both kidneys are atrophic, also multiple cystic foci bilaterally. Electronically signed by: Titus Rivers MD (05/24/2018 12:49 PM) [id number]
== END | disposition home or self-care (01) ==
LOC: MRI 10:00
PROVIDERS: ATTEND Family Medicine
DX: M51.37 Other intervertebral disc degeneration, lumbosacral region (principal); M43.17 Spondylolisthesis, lumbosacral region; M48.061 Spinal stenosis, lumbar region without neurogenic claudication; N28.1 Cyst of kidney, acquired
CPT/HCPCS: 72148

== ENCOUNTER → 2018-06-17 | Outpatient (CLI) | payer MEDICARE, OTHER ==
[2018-05-24 11:45] VITALS: BP 140/68
--- NOTE | 2018-06-17 15:15 | RAD ---
Renal ultrasound without comparison for kidney cysts. TECHNIQUE AND FINDINGS: Real-time grayscale and color Doppler imaging of the kidneys and urinary bladder is performed. The right kidney measures 7.4 x 3.5 x 4.5 cm in the left measures 7.5 x 4.6 x 3.5 cm. These are both atrophic, likely due to chronic renal failure. There is no hydronephrosis involving either kidney and there is no perinephric fluid involving either kidney. Both kidneys do demonstrate several cysts, most of which are exophytic. Involving the upper pole of the left kidney, there is a partially exophytic 3.3 x 2.7 x 3.2 cm anechoic cyst which appears to demonstrate at least one internal septation and/or some internal debris, making it complex in nature. No definite soft tissue elements are seen associated with this cyst. Within the midpole of the right kidney there is also an exophytic cyst measuring 2.5 x 2.4 x 3.2 cm. This is not well depicted, but once again may contain some internal septations and/or debris. No renal masses are identified. The IVC is patent. The aorta is atherosclerotic and nonaneurysmal. The urinary bladder is decompressed, and somewhat obscured. Ureteral jets are not identified. IMPRESSION: 1. Changes of chronic medical renal disease with increased echogenicity and atrophy of both kidneys. 2. Multiple bilateral renal cysts, all of which are somewhat poorly characterized with the current study. The larger cyst on the right measures 3.2 cm at the mid pole and appears somewhat complex in nature, and the largest cyst on the left measures 3.3 cm and involves the upper pole, and also appears somewhat complex in nature. Consider follow-up ultrasound study in 6-12 months. 3. Aortic atherosclerosis. Electronically signed by: Duane Ryan MD (06/17/2018 3:10 PM) [id number]
== END | disposition home or self-care (01) ==
LOC: US 14:52
PROVIDERS: ATTEND Family Medicine
DX: N28.1 Cyst of kidney, acquired (principal); I70.0 Atherosclerosis of aorta; N26.1 Atrophy of kidney (terminal)
CPT/HCPCS: 76770

== ENCOUNTER → 2018-07-19 | Outpatient (CLI) | payer MEDICARE, OTHER ==
[2018-05-24 11:45] VITALS: BP 140/68
[~2018-07-19] MED LIST changes: +ACET325T9 PO; -AMLO10TA6 PO; +AMLO10TA8 PO; +BUDE0.5A NEB; +BUPIVACAINE MPF 0.5% 10 ML VIAL for KCIC. IJ ONE; +BUPIVACAINE MPF 0.5% 10 ML VIAL. IJ ONE; +CETI10TA16 PO; +CONTRAST GIVEN. MC PRN; +FLUT16SP NS; +IOHEXOL 300 MG/ML 100ML VIAL. IJ ONE; +IOHEXOL 300 MG/ML 50 ML VIAL. IJ ONE; +IOHEXOL 300 MG/ML 50 ML VIAL. ONE; +IPRA3AMP29 NEB; +LIDOCAINE WITH 8.4% SOD BICARB 3 ML DISP.SYRIN. INJ ONE; +LIDOCAINE WITH 8.4% SOD BICARB 3 ML DISP.SYRIN. ONE; +TRAM-48 PO; +TRAZ-118 PO; -TRAZ-85 PO; +methylPREDNISolone ACETATE 80 MG/ML VIAL. IM ONE; +methylPREDNISolone ACETATE 80 MG/ML VIAL. INJ ONE
--- NOTE | 2018-07-19 16:33 | RAD ---
Therapeutic right hip injection using fluoroscopic guidance: Indication: Right hip pain. Osteoarthritis. Technique: The procedure was explained to the patient as were potential risks including bleeding and infection and allergic reaction. All questions were answered. Informed written consent was obtained. A timeout was performed which confirmed the name of the patient and the date of and the type of procedure and the side of the procedure. An appropriate skin qing was made using fluoroscopic guidance. The right hip was prepped and draped in the usual sterile manner. Following administration of local anesthetic, a 22-gauge spinal needle was advanced into the right hip joint without difficulty, with care taken to avoid the vascular structures. Stylet was removed and following negative aspiration, 2 cc of Omnipaque-300 was injected without difficulty. Fluoroscopy demonstrates uniform and satisfactory distribution of the injection throughout the right hip joint. Fluoroscopic spot images were performed. Following this, 1 mL of 80 mg of Depo-Medrol and 4 mL of 0.5 percent bupivacaine was injected intra-articularly. The needle was removed. There was good hemostasis at the injection site. The patient left in stable condition without immediate complication. The patient was given postprocedural instructions and instructed to contact us or the emergency room if there are any complications. The patient was given instructions to use her walker today and to ask for assistance while walking today in case she develops numbness of her right thigh from the injection. Total fluoroscopic time: 0.1 minutes. Total fluoroscopic spot views: 2 Impression: Uncomplicated therapeutic right hip injection. Electronically signed by: Santhosh Lizama MD (07/19/2018 4:30 PM) [facility]
== END | disposition home or self-care (01) ==
LOC: RAD 11:09
PROVIDERS: ATTEND Orthopaedic Surgery Sports Medicine
DX: M16.11 Unilateral primary osteoarthritis, right hip (principal); I13.2 Hypertensive heart and chronic kidney disease with heart failure and with stage 5 chronic kidney disease, or end stage renal disease; E11.22 Type 2 diabetes mellitus with diabetic chronic kidney disease; N18.6 End stage renal disease; I50.9 Heart failure, unspecified; Z99.2 Dependence on renal dialysis; Z88.5 Allergy status to narcotic agent; Z91.048 Other nonmedicinal substance allergy status; I42.9 Cardiomyopathy, unspecified; Z79.82 Long term (current) use of aspirin; Z86.73 Personal history of transient ischemic attack (TIA), and cerebral infarction without residual deficits; Z79.84 Long term (current) use of oral hypoglycemic drugs
CPT/HCPCS: 20610; 77002; J1040

== ENCOUNTER 2018-08-01 16:31 | Inpatient (IN) | payer MEDICARE, OTHER ==
[~2018-08-01] VITALS: Ht 154.9 cm; Wt 66.7 kg
[~2018-08-01 16:31] MED LIST changes: -ACET325T9 PO; -BUDE0.5A NEB; -BUPIVACAINE MPF 0.5% 10 ML VIAL for KCIC. IJ ONE; -BUPIVACAINE MPF 0.5% 10 ML VIAL. IJ ONE; -CETI10TA16 PO; -CONTRAST GIVEN. MC PRN; -FLUT16SP NS; -IOHEXOL 300 MG/ML 100ML VIAL. IJ ONE; -IOHEXOL 300 MG/ML 50 ML VIAL. IJ ONE; -IOHEXOL 300 MG/ML 50 ML VIAL. ONE; -IPRA3AMP29 NEB; -LIDOCAINE WITH 8.4% SOD BICARB 3 ML DISP.SYRIN. INJ ONE; -LIDOCAINE WITH 8.4% SOD BICARB 3 ML DISP.SYRIN. ONE; -TRAM-48 PO; -methylPREDNISolone ACETATE 80 MG/ML VIAL. IM ONE; -methylPREDNISolone ACETATE 80 MG/ML VIAL. INJ ONE
--- NOTE | 2018-08-01 17:38 | PHYS DOC ---
Past Medical History Past Medical History: Cancer, CHF, CVA, Diabetes-Type II, GERD, Hypertension, Hypothyroid, Renal Failure, TIA, Additional Disease, Other Additional Past Medical Histor: Breast CA Past Surgical History: Cancer Surgery, Cholecystectomy, Hysterectomy, Pacemaker , Other Additional Past Surgical Histo: Graft RUE; bilateral mastectomy; thyroidectomy ; hernia Alcohol Use: None Drug Use: None Adult General Chief Complaint Chief Complaint: SHORTNESS OF BREATH [facility] HPI Patient is an 83-year-old female who presents with complaint of shortness of breath. Patient states that she went in for her dialysis today but states that they were just not able to get enough fluid off. She states that she has been unable to sleep lying down due to feeling like she is drowning. She states that she had seen her reconciliation coordinator a couple of days ago and he had stated that he felt that she should be admitted at that time but she wanted to see if dialysis would improve things. She states that her dialysis did not improve her symptoms and feels like she still needs more fluid taken off. Review of Systems Review of Systems Constitutional: Denies fever or chills [] Respiratory: Complains of cough and shortness of breath [] Cardiovascular: No additional information not addressed in HPI [] GI: Denies abdominal pain, nausea, vomiting or diarrhea [] Integument: Denies rash or skin lesions [] Neurologic: Denies headache, focal weakness or sensory changes [] All other systems were reviewed and found to be within normal limits, except as documented in this note. Allergies Allergies Allergies Coded Allergies Type Severity Reaction Last Updated Verified adhesive tape Allergy Intermediate PAPER TAPE 09/27/17 Yes morphine Allergy Mild Itching 03/15/18 Yes Physical Exam Physical Exam Constitutional: Well developed, well nourished, no acute distress, non-toxic appearance. [] HENT: Normocephalic, atraumatic, bilateral external ears normal, oropharynx moist, no oral exudates, nose normal. [] Eyes: PERRLA, EOMI, conjunctiva normal, no discharge. [] Neck: Normal range of motion, no tenderness, supple, no stridor. [] Cardiovascular: Regular rate and rhythm[] Lungs & Thorax: There are coarse rhonchi bilaterally to auscultation [] Abdomen: Bowel sounds normal, soft, no tenderness. [] Skin: Warm, dry, no erythema, no rash. [] Extremities: No tenderness, no cyanosis, no clubbing, ROM intact, 2+ pitting edema is noted bilaterally. [] Neurologic: Alert and oriented X 3, no focal deficits noted. [] Current Patient Data Vital Signs Vital Signs Date Time Temp Pulse Resp B/P (MAP) Pulse Ox O2 Delivery O2 Flow Rate FiO2 08/01/18 20:21 70 21 159/73 (101) 99 Room Air 08/01/18 16:50 98.3 98.3 Lab Values Laboratory Tests Test 08/01/18 18:25 White Blood Count 5.8 x10^3/uL (4.0-11.0) Red Blood Count 3.23 x10^6/uL (3.50-5.40) L Hemoglobin 10.9 g/dL (12.0-15.5) L Hematocrit 33.4 % (36.0-47.0) L Mean Corpuscular Volume 104 fL (79-100) H Mean Corpuscular Hemoglobin 34 pg (25-35) Mean Corpuscular Hemoglobin Concent 33 g/dL (31-37) Red Cell Distribution Width 17.9 % (11.5-14.5) H Platelet Count 130 x10^3/uL (140-400) L Neutrophils (%) (Auto) 77 % (31-73) H Lymphocytes (%) (Auto) 7 % (24-48) L Monocytes (%) (Auto) 15 % (0-9) H Eosinophils (%) (Auto) 1 % (0-3) Basophils (%) (Auto) 1 % (0-3) Neutrophils # (Auto) 4.4 x10^3uL (1.8-7.7) Lymphocytes # (Auto) 0.4 x10^3/uL (1.0-4.8) L Monocytes # (Auto) 0.8 x10^3/uL (0.0-1.1) Eosinophils # (Auto) 0.0 x10^3/uL (0.0-0.7) Basophils # (Auto) 0.0 x10^3/uL (0.0-0.2) Sodium Level 140 mmol/L (136-145) Potassium Level 3.8 mmol/L (3.5-5.1) Chloride Level 102 mmol/L (98-107) Carbon Dioxide Level 25 mmol/L (21-32) Anion Gap 13 (6-14) Blood Urea Nitrogen 23 mg/dL (7-20) H Creatinine 3.1 mg/dL (0.6-1.0) H Estimated GFR (Cockcroft-Gault) 17.4 BUN/Creatinine Ratio 7 (6-20) Glucose Level 296 mg/dL (70-99) H Calcium Level 8.3 mg/dL (8.5-10.1) L Total Bilirubin 1.0 mg/dL (0.2-1.0) Aspartate Amino Transferase (AST) 25 U/L (15-37) Alanine Aminotransferase (ALT) 20 U/L (14-59) Alkaline Phosphatase 224 U/L (46-116) H Troponin I Quantitative 0.040 ng/mL (0.000-0.055) KS-Nvp-Y-Type Natriuretic Peptide > 33862 pg/mL (0-449) H Total Protein 7.4 g/dL (6.4-8.2) Albumin 3.2 g/dL (3.4-5.0) L Albumin/Globulin Ratio 0.8 (1.0-1.7) L Laboratory Tests 08/01/18 18:25 Laboratory Tests 08/01/18 18:25 EKG EKG [] Radiology/Procedures Radiology/Procedures [] Impressions: PROCEDURE: PORTABLE CHEST 1V EXAM: AP View of the chest DATE: 08/01/2018 6:03 PM INDICATION: dyspnea COMPARISON: 03/15/18 FINDINGS/ IMPRESSION: 1. Cardiac generator pack obscures a portion of the left chest with leads in stable position. 2. The heart is moderately enlarged. Atherosclerotic calcifications of the tortuous aorta are seen. Right brachiocephalic stent is partially profiled. 3. Mediastinal and hilar contours are stable. 4. No lobar consolidation. Interstitial prominence bilaterally, possibly pulmonary vascular congestion. 5. No pleural effusion. Electronically signed by: Germán Centeno MD (08/01/2018 6:25 PM) [facility] Course & Med Decision Making Course & Med Decision Making Pertinent Labs and Imaging studies reviewed. (See chart for details) [] Dragon Disclaimer Dragon Disclaimer This electronic medical record was generated, in whole or in part, using a voice recognition dictation system. Departure Departure Impression: Primary Impression: CHF exacerbation Additional Impression: ESRD (end stage renal disease) Disposition: 09 ADMITTED INPATIENT Admitting Physician: Windy Nichole Condition: GOOD Referrals: CHAPARRITA CALDERON MD (PCP) Problem Qualifiers Primary Impression: CHF exacerbation Heart failure type: unspecified Qualified Codes: I50.9 - Heart failure, unspecified LAUREL JIM Jr. DO Aug 01, 2018 17:38
--- NOTE | 2018-08-01 18:28 | RAD ---
EXAM: AP View of the chest DATE: 08/01/2018 6:03 PM INDICATION: dyspnea COMPARISON: 03/15/18 FINDINGS/ IMPRESSION: 1. Cardiac generator pack obscures a portion of the left chest with leads in stable position. 2. The heart is moderately enlarged. Atherosclerotic calcifications of the tortuous aorta are seen. Right brachiocephalic stent is partially profiled. 3. Mediastinal and hilar contours are stable. 4. No lobar consolidation. Interstitial prominence bilaterally, possibly pulmonary vascular congestion. 5. No pleural effusion. Electronically signed by: Germán Centeno MD (08/01/2018 6:25 PM) [facility]
[2018-08-01 18:40] LABS: BASO % 1 % (0-3); EOS % 1 % (0-3); HEMATOCRIT 33.4 % (36.0-47.0); HEMOGLOBIN 10.9 g/dL (12.0-15.5); LYMPH # 0.4 x10^3/uL (1.0-4.8); LYMPH % 7 % (24-48); MEAN CORPUSCULAR HEMOGLOBIN 34 pg (25-35); MEAN CORPUSCULAR HGB CONC 33 g/dL (31-37); MEAN CORPUSCULAR VOLUME 104 fL (79-100); MONO # 0.8 x10^3/uL (0.0-1.1); MONO % 15 % (0-9); NEUT # 4.4 x10^3uL (1.8-7.7); NEUT % 77 % (31-73); PLATELET COUNT 130 x10^3/uL (140-400); RED BLOOD COUNT 3.23 x10^6/uL (3.50-5.40); RED CELL DISTRIBUTION WIDTH 17.9 % (11.5-14.5); WHITE BLOOD COUNT 5.8 x10^3/uL (4.0-11.0)
[2018-08-01 18:56] LABS: CALCIUM 8.3 mg/dL (8.5-10.1); CREATININE 3.1 mg/dL (0.6-1.0); GFR 17.4; POTASSIUM 3.8 mmol/L (3.5-5.1)
[2018-08-01 19:02] LABS: ALBUMIN 3.2 g/dL (3.4-5.0); ALBUMIN/GLOBULIN RATIO 0.8 (1.0-1.7); TOTAL PROTEIN 7.4 g/dL (6.4-8.2)
[2018-08-01] MEDS ORDERED: TRAM50TA PO (22:26)
[2018-08-01] MEDS ORDERED: SEVE800T9 PO (22:26)
[2018-08-01] MEDS ORDERED: traZODone 50 MG TABLET. PO PRN (22:45)
[2018-08-01] MEDS ORDERED: ALBUTEROL SULFATE 2.5 MG/3 ML NEBU. INH PRN (22:45)
[2018-08-01] MEDS: ATORVASTATIN CALCIUM 20 MG TABLET PO SCH (22:55)
[2018-08-01] MEDS: oxyCODONE/APAP 5/325 1 TAB TABLET PO PRN (22:56)
[2018-08-01 23:00] VITALS: BP 150/65
[2018-08-01] MEDS ORDERED: INSULIN GLARGINE 300 UNITS/3 ML INSULN.PEN. SQ SCH (23:00)
[2018-08-02 03:00] VITALS: BP 173/67
[2018-08-02] MEDS: oxyCODONE/APAP 5/325 1 TAB TABLET PO PRN (03:22)
[2018-08-02] MEDS: traMADol 50 MG TABLET PO PRN ×2 (05:29→09:54)
[2018-08-02] MEDS: LEVOTHYROXINE 75 MCG TABLET PO SCH (05:30)
--- NOTE | 2018-08-02 06:51 | EKG ---
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
[2018-08-02 07:00] VITALS: BP 135/69
[2018-08-02] MEDS: SUCRALFATE 1 GM TABLET. PO SCH ×3 (07:30→18:01)
[2018-08-02] MEDS: SEVELAMER CARBONATE 800 MG TABLET. PO SCH ×3 (08:00→17:00)
--- NOTE | 2018-08-02 08:12 | NUR ---
Chart review done. Pt admitted w/ CHF exacerbation. Nursing notes indicate unsteady gait and mild weakness. Pt may benefit from PT/OT Eval and Treat. Addendum: 08/02/18 at 0812 by LUIS FELIPE SALINAS OT Amended: Links added.
[2018-08-02] MEDS: FOLIC/VIT B COMP W-C (RENAL) TABLET. PO SCH (09:00)
[2018-08-02 09:25] LABS: CALCIUM 8.5 mg/dL (8.5-10.1); CREATININE 4.3 mg/dL (0.6-1.0); GFR 11.9; POTASSIUM 4.3 mmol/L (3.5-5.1)
[2018-08-02 09:30] LABS: BASO % 0 % (0-3); EOS # 0.1 x10^3/uL (0.0-0.7); EOS % 2 % (0-3); HEMATOCRIT 36.2 % (36.0-47.0); HEMOGLOBIN 11.5 g/dL (12.0-15.5); LYMPH # 0.6 x10^3/uL (1.0-4.8); LYMPH % 9 % (24-48); MEAN CORPUSCULAR HEMOGLOBIN 33 pg (25-35); MEAN CORPUSCULAR HGB CONC 32 g/dL (31-37); MEAN CORPUSCULAR VOLUME 104 fL (79-100); MONO # 1.2 x10^3/uL (0.0-1.1); MONO % 19 % (0-9); NEUT # 4.5 x10^3uL (1.8-7.7); NEUT % 70 % (31-73); PLATELET COUNT 159 x10^3/uL (140-400); RED BLOOD COUNT 3.48 x10^6/uL (3.50-5.40); RED CELL DISTRIBUTION WIDTH 18.1 % (11.5-14.5); WHITE BLOOD COUNT 6.5 x10^3/uL (4.0-11.0)
[2018-08-02] MEDS: PANTOPRAZOLE 40 MG TABLET.DR. PO SCH ×2 (09:48→18:01)
[2018-08-02] MEDS: ASPIRIN CHEWABLE 81 MG TABLET. PO SCH (09:48)
[2018-08-02] MEDS: FUROSEMIDE 40 MG TABLET. PO SCH (09:49)
[2018-08-02] MEDS: SERTRALINE 25 MG TABLET. PO SCH (09:49)
[2018-08-02] MEDS: CARVEDILOL 6.25 MG TABLET. PO SCH ×2 (09:50→18:01)
[2018-08-02 10:02] LABS: % BANDS 2 % (0-9); % EOS 2 % (0-5); % LYMPHS 9 % (24-48); % MONOS 9 % (0-10); % SEGS 78 % (35-66); NUCLEATED RBC 1; PLT ESTIMATE ADEQUATE (ADEQUATE)
[2018-08-02] MEDS ORDERED: IV NORMAL SALINE 1000ML BAG 1,000 ML IV PRN ×4 (10:11→10:28)
[2018-08-02] MEDS ORDERED: DIALYSIS PATIENT. MC PRN ×4 (10:15→10:30)
[2018-08-02 10:31] LABS: INFLUENZA A PATIENT NEGATIVE (NEGATIVE); INFLUENZA B PATIENT NEGATIVE (NEGATIVE)
--- NOTE | 2018-08-02 10:44 | PDOC2 ---
VEDA SPRING MANAGEMENT RETAIL INTERN 08/02/18 1044: CARDIAC CONSULT DATE OF CONSULT Date of Consult DATE: 08/02/18 TIME: 10:27 REASON FOR CONSULT Reason for Consult: CHF REFERRING PHYSICIAN Referring Physician: Yann SOURCE Source: Chart review, Patient HISTORY OF PRESENT ILLNESS HISTORY OF PRESENT ILLNESS This is a pleasant [age] yo female admitted for complains shortness of breath. She was seen in out office on 07/31/2018 and was complaining of SOA at that time. She was offerred to be admitted but elected to wait for dialysis the following day. She had her dialysis yesterday and still coughing and has some SOA still. Reports that in the last 3 days she has been having body aches, runny nose and has been coughing with clear and white sputum. Has been having chills and has been feeling good. Does not remember any of her family members being sick. No CP, palpitations and frequent dizziness. She has been complaint with her meds. PAST MEDICAL HISTORY Past Medical History Cardiovascular: CAD, CHF, HTN Pulmonary: Other CENTRAL NERVOUS SYSTEM: TIA GI: GERD Heme/Onc: Anemia NOS, Cancer Hepatobiliary: No pertinent hx Psych: No pertinent hx Rheumatologic: No pertinent hx Infectious disease: No pertinent hx Renal/: Chronic renal failure Endocrine: Diabetes PAST SURGICAL HISTORY Past Surgical History Appendectomy, Cholecystectomy, Cataract Removal, Mastectomy, Hysterectomy, PCI/ stent to RCA, AICD FAMILY HISTORY Family History: Diabetes, Heart Disease SOCIAL HISTORY Smoke: Quit (remotely) ALCOHOL: none Drugs: None Lives: with Family CURRENT MEDICATIONS CURRENT MEDICATIONS Current Medications Medications (Trade) Dose Ordered Sig/Sahil Route PRN Reason Start Time Stop Time Status Last Admin Dose Admin Aspirin (Children'S Aspirin) 81 mg DAILY PO 08/02/18 09:00 08/02/18 09:48 Atorvastatin Calcium (Lipitor) 20 mg HS PO 08/01/18 23:00 08/01/18 22:55 Carvedilol (Coreg) 6.25 mg BIDWMEALS PO 08/02/18 08:00 08/02/18 09:50 Furosemide (Lasix) 40 mg DAILY PO 08/02/18 09:00 08/02/18 09:49 Insulin Glargine (Lantus) 5 units QHS SQ 08/01/18 23:00 08/01/18 23:00 Levothyroxine Sodium (Synthroid) 75 mcg DAILY06 PO 08/02/18 06:00 08/02/18 05:30 Oxycodone/ Acetaminophen (Percocet 5/325) 1 tab PRN Q4HRS PRN PO MILD PAIN, 1ST CHOICE 08/01/18 22:45 08/02/18 03:22 Tramadol HCl (Ultram) 50 mg PRN Q6HRS PRN PO MODERATE PAIN 08/01/18 22:45 08/02/18 09:54 Trazodone HCl (Desyrel) 50 mg PRN QHS PRN PO INSOMNIA 1ST CHOICE 08/01/18 22:45 08/01/18 22:56 Hydralazine HCl (Apresoline) 50 mg BID PO 08/01/18 23:00 08/02/18 09:49 Sertraline HCl (Zoloft) 25 mg DAILY PO 08/02/18 09:00 08/02/18 09:49 Sucralfate (Carafate) 1 gm TIDAC PO 08/02/18 07:30 08/02/18 09:56 Pantoprazole Sodium (Protonix) 40 mg BIDAC PO 08/02/18 07:30 08/02/18 09:48 ALLERGIES ALLERGIES: Coded Allergies: adhesive tape (Verified Allergy, Intermediate, PAPER TAPE, 09/27/17) morphine (Verified Allergy, Mild, Itching, 03/15/18) Received oxycodone 10/2017 with no documented adverse effects and received tramadol 11/2017 with no documented adverse effects ROS Review of System 14 point ROS evaluated with pertinent positives noted per HPI PHYSICAL EXAM General: Alert, Oriented X3, Cooperative, mild distress HEENT: Atraumatic, Mucous membr. moist/pink Lungs: Other (diffuse expiratory wheeze with basilar crackles) Heart: Regular rate (SR), Other (3/6 systolic murmur to LLS border) Abdomen: Soft, No tenderness Extremities: No cyanosis, No edema Skin: No breakdown, No significant lesion Neuro: Normal speech, Sensation intact Psych/Mental Status: Mental status NL, Mood NL MUSCULOSKELETAL: Osteoarthritic changes both hands VITALS VITALS Vital Signs Date Time Temp Pulse Resp B/P (MAP) Pulse Ox O2 Delivery O2 Flow Rate FiO2 08/02/18 09:54 99 Room Air 08/02/18 09:50 71 135/69 08/02/18 07:00 98.1 20 98.1 LABS Lab: Laboratory Tests Test 08/01/18 18:25 08/02/18 07:46 08/02/18 09:10 White Blood Count 5.8 x10^3/uL (4.0-11.0) 6.5 x10^3/uL (4.0-11.0) Red Blood Count 3.23 x10^6/uL (3.50-5.40) 3.48 x10^6/uL (3.50-5.40) Hemoglobin 10.9 g/dL (12.0-15.5) 11.5 g/dL (12.0-15.5) Hematocrit 33.4 % (36.0-47.0) 36.2 % (36.0-47.0) Mean Corpuscular Volume 104 fL (79-100) 104 fL (79-100) Mean Corpuscular Hemoglobin 34 pg (25-35) 33 pg (25-35) Mean Corpuscular Hemoglobin Concent 33 g/dL (31-37) 32 g/dL (31-37) Red Cell Distribution Width 17.9 % (11.5-14.5) 18.1 % (11.5-14.5) Platelet Count 130 x10^3/uL (140-400) 159 x10^3/uL (140-400) Neutrophils (%) (Auto) 77 % (31-73) 70 % (31-73) Lymphocytes (%) (Auto) 7 % (24-48) 9 % (24-48) Monocytes (%) (Auto) 15 % (0-9) 19 % (0-9) Eosinophils (%) (Auto) 1 % (0-3) 2 % (0-3) Basophils (%) (Auto) 1 % (0-3) 0 % (0-3) Neutrophils # (Auto) 4.4 x10^3uL (1.8-7.7) 4.5 x10^3uL (1.8-7.7) Lymphocytes # (Auto) 0.4 x10^3/uL (1.0-4.8) 0.6 x10^3/uL (1.0-4.8) Monocytes # (Auto) 0.8 x10^3/uL (0.0-1.1) 1.2 x10^3/uL (0.0-1.1) Eosinophils # (Auto) 0.0 x10^3/uL (0.0-0.7) 0.1 x10^3/uL (0.0-0.7) Basophils # (Auto) 0.0 x10^3/uL (0.0-0.2) 0.0 x10^3/uL (0.0-0.2) Sodium Level 140 mmol/L (136-145) 139 mmol/L (136-145) Potassium Level 3.8 mmol/L (3.5-5.1) 4.3 mmol/L (3.5-5.1) Chloride Level 102 mmol/L (98-107) 102 mmol/L (98-107) Carbon Dioxide Level 25 mmol/L (21-32) 24 mmol/L (21-32) Anion Gap 13 (6-14) 13 (6-14) Blood Urea Nitrogen 23 mg/dL (7-20) 30 mg/dL (7-20) Creatinine 3.1 mg/dL (0.6-1.0) 4.3 mg/dL (0.6-1.0) Estimated GFR (Cockcroft-Gault) 17.4 11.9 BUN/Creatinine Ratio 7 (6-20) Glucose Level 296 mg/dL (70-99) 249 mg/dL (70-99) Calcium Level 8.3 mg/dL (8.5-10.1) 8.5 mg/dL (8.5-10.1) Total Bilirubin 1.0 mg/dL (0.2-1.0) Aspartate Amino Transf (AST/SGOT) 25 U/L (15-37) Alanine Aminotransferase (ALT/SGPT) 20 U/L (14-59) Alkaline Phosphatase 224 U/L (46-116) Troponin I Quantitative 0.040 ng/mL (0.000-0.055) MD-Vvt-O-Type Natriuretic Peptide > 62826 pg/mL (0-449) Total Protein 7.4 g/dL (6.4-8.2) Albumin 3.2 g/dL (3.4-5.0) Albumin/Globulin Ratio 0.8 (1.0-1.7) Glucose (Fingerstick) 196 mg/dL (70-99) Segmented Neutrophils % 78 % (35-66) Band Neutrophils % 2 % (0-9) Lymphocytes % 9 % (24-48) Monocytes % 9 % (0-10) Eosinophils % 2 % (0-5) Nucleated Red Blood Cells 1 Platelet Estimate Adequate (ADEQUATE) ECHOCARDIOGRAM ECHOCARDIOGRAM <Conclusion> Limited study for LV function. The Left Ventricle is borderline dilated. The systolic function is moderately impaired. LV ejection fraction is 30-35%. There is global hypokinesis of the left ventricle. There is no evidence of significant pericardial effusion. DATE: 02/03/18 1255 HEART CATH HEART CATH Findings. Hemodynamics. LV pressure 140/26, aortic root pressure of 146/90. Coronaries. Left main. The left main was a normal-size vessel with no lesions. Left anterior descending. The LAD was a moderate-sized vessel with normal distribution. It had a mid 10% lesion and a distal 10% lesion. There was also vascular blushing in the area of the septum with probable arteriovenous shunting. Left circumflex. The left circumflex was nondominant. It has a mid 15% lesion and distal small vessel disease. Right coronary artery. Right coronary was a dominant vessel. It had an ostial greater than 80% lesion and a distal 15% lesion. <Conclusion> Severe single-vessel coronary artery disease with an ostial greater than 80% right coronary lesion. Successful bare metal stenting of the ostial lesion. Mild coronary artery disease in the left system. Vascular blushing in the area of the septum with probable arteriovenous shunting. DATE: 02/21/17 1410 ASSESSMENT/PLAN ASSESSMENT/PLAN 1. Acute on chronic systolic CHF with ICM: improved 2. AICD in situ: (medtronic) impedances are stable and no significant arrhythmias. 3. URI/acute bronchitis: likely viral 4. CAD: prior stent to RCA as noted above, clinically stable 5. HTN: controlled 6. DM2/HLP 7. ESRD Recommendations 1. Flu swab 2. HD per nephrology 3. Continue with home cardiac regimen 4. Albuterol x1. Will obtain CT chest noncontrast. 5. TTE today. AGA LIU MD 08/02/182007: CARDIAC CONSULT ASSESSMENT/PLAN ASSESSMENT/PLAN Patient seen and examined. Agree with HAND DEICER ELEMENT WINDER's assessment and plan. Continue fluid removal with HD per nephrology for acute on chronic systolic HF CAD status clinically stable 2D echo results noted Continue current medical regimen Thank you for your consultation VEDA SPRING APRN Aug 02, 2018 10:44 AGA LIU MD Aug 02, 2018 20:08
[2018-08-02] MEDS ORDERED: ALBUTEROL SULFATE 2.5 MG/3 ML NEBU. NEB ONE (10:45)
--- NOTE | 2018-08-02 10:58 | NUR ---
SW following pt for anticipated dc needs. Chart reviewed and discussed with RN. Pt lives at home with family and on room air. PT/OT pending. SW will await for PT/OT recommendation to assess skilled needs. Will continue to follow.
--- NOTE | 2018-08-02 10:59 | PDOC2 ---
CONSULT Date of Consult Date of Consult DATE: 08/02/18 TIME: 10:55 Reason for Consult Reason for Consult: ESRD AND SOB Referring Physician Referring Physician: Identification/Chief Complaint Chief Complaint SOB Source Source: Chart review, Patient History of Present Illness Reason for Visit: THIS IS AN 83 YR OLD ESRD PT WITH SOB. NOTED TO HAVE HYPERVOLEMIA AND PROB CHF. LABS C/W ESRD. SHE HAS OP HD ON TTS. SHE WENT TO HER TX YESTERDAY AND FELT SOB AFTER TX. FEELS THAT THEY DID NOT TAKE ENOUGH FLUID OFF ALTHOUGH DW WAS ACHIEVED. ESRD IS DUE TO DM II AND HTN. SHE IS UNABLE TO LAY FLAT. NO CHEST PAIN REPORTED Past Medical History Cardiovascular: CAD, CHF, HTN, Other Pulmonary: Other CENTRAL NERVOUS SYSTEM: TIA GI: GERD Heme/Onc: Anemia NOS, Cancer Hepatobiliary: No pertinent hx Psych: No pertinent hx Rheumatologic: No pertinent hx Infectious disease: No pertinent hx Renal/: Chronic renal failure Endocrine: Diabetes, Hyperparathyroidism Past Surgical History Past Surgical History: Appendectomy, Cholecystectomy, Cataract Removal, Mastectomy, Hysterectomy, Other Family History Family History: Diabetes, Heart Disease Social History Quit (remotely) ALCOHOL: none Drugs: None Lives: with Family Current Problem List Problem List Problems Medical Problems: (1) CHF exacerbation Status: Acute Current Medications Current Medications Current Medications Albuterol Sulfate (Ventolin Neb Soln) 2.5 mg PRN Q6HRS PRN INH SHORTNESS OF BREATH; Start 08/01/18 at 22:45 Aspirin (Children'S Aspirin) 81 mg DAILY PO Last administered on 08/02/18at 09: 48; Start 08/02/18 at 09:00 Atorvastatin Calcium (Lipitor) 20 mg HS PO Last administered on 08/01/18at 22:55 ; Start 08/01/18 at 23:00 Carvedilol (Coreg) 6.25 mg BIDWMEALS PO Last administered on 08/02/18at 09:50; Start 08/02/18 at 08:00 Ergocalciferol (Vitamin D2) 50,000 unit WEEKLY PO ; Start 08/08/18 at 09:00 Vitamin B Complex/ Vitamin C (Johana-Manuel) 1 tab DAILY PO ; Start 08/02/18 at 09: 00 Furosemide (Lasix) 40 mg DAILY PO Last administered on 08/02/18at 09:49; Start 08/02/18 at 09:00 Insulin Glargine (Lantus) 5 units QHS SQ Last administered on 08/01/18 23:00; Start 08/01/18 at 23:00 Levothyroxine Sodium (Synthroid) 75 mcg DAILY06 PO Last administered on 05:30; Start 08/02/18 at 06:00 Oxycodone/ Acetaminophen (Percocet 5/325) 1 tab PRN Q4HRS PRN PO MILD PAIN, 1ST CHOICE Last administered on 08/02/18 03:22; Start 08/01/18 at 22:45 Sevelamer Carbonate (Renvela) 800 mg TIDWMEALS PO ; Start 08/02/18 at 08:00 Tramadol HCl (Ultram) 50 mg PRN Q6HRS PRN PO MODERATE PAIN Last administered on 08/02/18 09:54; Start 08/01/18 at 22:45 Trazodone HCl (Desyrel) 50 mg PRN QHS PRN PO INSOMNIA 1ST CHOICE Last administered on 08/01/18 22:56; Start 08/01/18 at 22:45 Hydralazine HCl (Apresoline) 50 mg BID PO Last administered on 08/02/18 09:49 ; Start 08/01/18 at 23:00 Sertraline HCl (Zoloft) 25 mg DAILY PO Last administered on 08/02/18 09:49; Start 08/02/18 at 09:00 Sucralfate (Carafate) 1 gm TIDAC PO Last administered on 08/02/18 09:56; Start 08/02/18 at 07:30 Pantoprazole Sodium (Protonix) 40 mg BIDAC PO Last administered on 08/02/18 09 :48; Start 08/02/18 at 07:30 Sodium Chloride 1,000 ml @ 1,000 mls/hr Q1H PRN IV hypotension; Start 08/02/18 at 10:11; Stop 08/02/18 at 16:10 Sodium Chloride 1,000 ml @ 400 mls/hr Q2H30M PRN IV PATENCY; Start 08/02/18 at 10:11; Stop 08/02/18 at 22:10 Info (PHARMACY MONITORING -- do not chart) 1 each PRN DAILY PRN MC SEE COMMENTS ; Start 08/02/18 at 10:15; Status UNV Info (PHARMACY MONITORING -- do not chart) 1 each PRN DAILY PRN MC SEE COMMENTS ; Start 08/02/18 at 10:15 Sodium Chloride 1,000 ml @ 1,000 mls/hr Q1H PRN IV hypotension; Start 08/02/18 at 10:28; Stop 08/02/18 at 16:27 Sodium Chloride 1,000 ml @ 400 mls/hr Q2H30M PRN IV PATENCY; Start 08/02/18 at 10:28; Stop 08/02/18 at 22:27 Info (PHARMACY MONITORING -- do not chart) 1 each PRN DAILY PRN MC SEE COMMENTS ; Start 08/02/18 at 10:30; Status UNV Info (PHARMACY MONITORING -- do not chart) 1 each PRN DAILY PRN MC SEE COMMENTS ; Start 08/02/18 at 10:30 Albuterol Sulfate (Ventolin Neb Soln) 2.5 mg 1X ONCE NEB ; Start 08/02/18 at 10 :45; Stop 08/02/18 at 10:46; Status DC Active Scripts Active Oxycodone-Acetaminophen 5-325 (Oxycodone Hcl/Acetaminophen) 1 Each Tablet 1 Tab PO PRN Q4HRS PRN Isosorbide Mononitrate Er (Isosorbide Mononitrate) 30 Mg Tab.er.24h 30 Mg PO DAILY 30 Days Proair Hfa Inhaler (Albuterol Sulfate) 8.5 Gm Hfa.aer.ad 1 Puff INH PRN Q6HRS PRN 30 Days Trazodone Hcl 50 Mg Tablet 50 Mg PO PRN QHS PRN 30 Days Carafate (Sucralfate) 1 Gm Tablet 1 Gm PO TIDAC 30 Days Vitamin D2 (Ergocalciferol (Vitamin D2)) 50,000 Unit Capsule 50,000 Unit PO WEEKLY 30 Days [Pantoprazole] 40 MG Tablet.dr 40 Mg PO BIDAC 30 Days Lantus Solostar (Insulin Glargine,Hum.rec.anlog) 100 Unit/1 Ml Insuln.pen 5 Units SQ QHS 30 Days Carvedilol (Carvedilol) 3.125 Mg Tablet 6.25 Mg PO BIDWMEALS 30 Days Sertraline Hcl 25 Mg Tablet 25 Mg PO DAILY 30 Days Reported Tramadol Hcl 50 Mg Tablet 50 Mg PO Q6HRS PRN Renvela (Sevelamer Carbonate) 800 Mg Tablet 800 Mg PO TIDWMEALS Humalog (Insulin Lispro) 100 Unit/1 Ml Cartridge 0-100 Unit SQ TIDAC Hydralazine Hcl 50 Mg Tablet 50 Mg PO BID Lipitor (Atorvastatin Calcium) 20 Mg Tablet 20 Mg PO HS Aspirin 81 Mg Tab.chew 81 Mg PO DAILY Synthroid (Levothyroxine Sodium) 75 Mcg Tablet 75 Mcg PO DAILYAC Nephro-Manuel Tablet (Folic Acid/Vitamin B Comp W-C) 0.8 Mg Tablet 0.8 Mg PO DAILY Lasix (Furosemide) 40 Mg Tablet 40 Mg PO DAILY Allergies Allergies: Coded Allergies: adhesive tape (Verified Allergy, Intermediate, PAPER TAPE, 09/27/17) morphine (Verified Allergy, Mild, Itching, 03/15/18) Received oxycodone 10/2017 with no documented adverse effects and received tramadol 11/2017 with no documented adverse effects ROS General: YES: Fatigue, Appetite PSYCHOLOGICAL ROS: YES: Anxiety Eyes: Yes Decreased vision HEENT: YES: Heacaches Respiratory: YES: Cough, Orthopnea, Shortness of breath Cardiovascular: yes Paroxysmal Noc. Dyspnea Gastrointestinal: Yes Constipation Genitourinary: YES Other (ANURIA) Musculoskeletal: Yes Muscular Weakness Neurological: Yes Weakness Skin: Yes Dry Skin Physical Exam General: Alert, Oriented X3, Cooperative, No acute distress HEENT: Atraumatic, PERRLA Lungs: Other (DECREASED AT BASES) Heart: Regular rate, Normal S1 Abdomen: Normal bowel sounds, Soft Extremities: No clubbing Skin: No breakdown, No significant lesion Neuro: Normal speech, Sensation intact, Cranial nerves 3-12 NL Psych/Mental Status: Mental status NL MUSCULOSKELETAL: No joint tenderness, No deformity, No swelling Vitals VITALS Vital Signs Date Time Temp Pulse Resp B/P (MAP) Pulse Ox O2 Delivery O2 Flow Rate FiO2 08/02/18 09:54 99 Room Air 08/02/18 09:50 71 135/69 08/02/18 07:00 98.1 20 98.1 Labs Labs Laboratory Tests Test 08/01/18 18:25 08/02/18 07:46 08/02/18 09:10 08/02/18 09:47 White Blood Count 5.8 x10^3/uL (4.0-11.0) 6.5 x10^3/uL (4.0-11.0) Red Blood Count 3.23 x10^6/uL (3.50-5.40) 3.48 x10^6/uL (3.50-5.40) Hemoglobin 10.9 g/dL (12.0-15.5) 11.5 g/dL (12.0-15.5) Hematocrit 33.4 % (36.0-47.0) 36.2 % (36.0-47.0) Mean Corpuscular Volume 104 fL (79-100) 104 fL (79-100) Mean Corpuscular Hemoglobin 34 pg (25-35) 33 pg (25-35) Mean Corpuscular Hemoglobin Concent 33 g/dL (31-37) 32 g/dL (31-37) Red Cell Distribution Width 17.9 % (11.5-14.5) 18.1 % (11.5-14.5) Platelet Count 130 x10^3/uL (140-400) 159 x10^3/uL (140-400) Neutrophils (%) (Auto) 77 % (31-73) 70 % (31-73) Lymphocytes (%) (Auto) 7 % (24-48) 9 % (24-48) Monocytes (%) (Auto) 15 % (0-9) 19 % (0-9) Eosinophils (%) (Auto) 1 % (0-3) 2 % (0-3) Basophils (%) (Auto) 1 % (0-3) 0 % (0-3) Neutrophils # (Auto) 4.4 x10^3uL (1.8-7.7) 4.5 x10^3uL (1.8-7.7) Lymphocytes # (Auto) 0.4 x10^3/uL (1.0-4.8) 0.6 x10^3/uL (1.0-4.8) Monocytes # (Auto) 0.8 x10^3/uL (0.0-1.1) 1.2 x10^3/uL (0.0-1.1) Eosinophils # (Auto) 0.0 x10^3/uL (0.0-0.7) 0.1 x10^3/uL (0.0-0.7) Basophils # (Auto) 0.0 x10^3/uL (0.0-0.2) 0.0 x10^3/uL (0.0-0.2) Sodium Level 140 mmol/L (136-145) 139 mmol/L (136-145) Potassium Level 3.8 mmol/L (3.5-5.1) 4.3 mmol/L (3.5-5.1) Chloride Level 102 mmol/L (98-107) 102 mmol/L (98-107) Carbon Dioxide Level 25 mmol/L (21-32) 24 mmol/L (21-32) Anion Gap 13 (6-14) 13 (6-14) Blood Urea Nitrogen 23 mg/dL (7-20) 30 mg/dL (7-20) Creatinine 3.1 mg/dL (0.6-1.0) 4.3 mg/dL (0.6-1.0) Estimated GFR (Cockcroft-Gault) 17.4 11.9 BUN/Creatinine Ratio 7 (6-20) Glucose Level 296 mg/dL (70-99) 249 mg/dL (70-99) Calcium Level 8.3 mg/dL (8.5-10.1) 8.5 mg/dL (8.5-10.1) Total Bilirubin 1.0 mg/dL (0.2-1.0) Aspartate Amino Transf (AST/SGOT) 25 U/L (15-37) Alanine Aminotransferase (ALT/SGPT) 20 U/L (14-59) Alkaline Phosphatase 224 U/L (46-116) Troponin I Quantitative 0.040 ng/mL (0.000-0.055) ZB-Jgf-K-Type Natriuretic Peptide > 32605 pg/mL (0-449) Total Protein 7.4 g/dL (6.4-8.2) Albumin 3.2 g/dL (3.4-5.0) Albumin/Globulin Ratio 0.8 (1.0-1.7) Glucose (Fingerstick) 196 mg/dL (70-99) Segmented Neutrophils % 78 % (35-66) Band Neutrophils % 2 % (0-9) Lymphocytes % 9 % (24-48) Monocytes % 9 % (0-10) Eosinophils % 2 % (0-5) Nucleated Red Blood Cells 1 Platelet Estimate Adequate (ADEQUATE) Influenza Type A Antigen Negative (NEGATIVE) Influenza Type B Antigen Negative (NEGATIVE) Laboratory Tests Test 08/01/18 18:25 08/02/18 07:46 08/02/18 09:10 08/02/18 09:47 White Blood Count 5.8 x10^3/uL (4.0-11.0) 6.5 x10^3/uL (4.0-11.0) Red Blood Count 3.23 x10^6/uL (3.50-5.40) 3.48 x10^6/uL (3.50-5.40) Hemoglobin 10.9 g/dL (12.0-15.5) 11.5 g/dL (12.0-15.5) Hematocrit 33.4 % (36.0-47.0) 36.2 % (36.0-47.0) Mean Corpuscular Volume 104 fL (79-100) 104 fL (79-100) Mean Corpuscular Hemoglobin 34 pg (25-35) 33 pg (25-35) Mean Corpuscular Hemoglobin Concent 33 g/dL (31-37) 32 g/dL (31-37) Red Cell Distribution Width 17.9 % (11.5-14.5) 18.1 % (11.5-14.5) Platelet Count 130 x10^3/uL (140-400) 159 x10^3/uL (140-400) Neutrophils (%) (Auto) 77 % (31-73) 70 % (31-73) Lymphocytes (%) (Auto) 7 % (24-48) 9 % (24-48) Monocytes (%) (Auto) 15 % (0-9) 19 % (0-9) Eosinophils (%) (Auto) 1 % (0-3) 2 % (0-3) Basophils (%) (Auto) 1 % (0-3) 0 % (0-3) Neutrophils # (Auto) 4.4 x10^3uL (1.8-7.7) 4.5 x10^3uL (1.8-7.7) Lymphocytes # (Auto) 0.4 x10^3/uL (1.0-4.8) 0.6 x10^3/uL (1.0-4.8) Monocytes # (Auto) 0.8 x10^3/uL (0.0-1.1) 1.2 x10^3/uL (0.0-1.1) Eosinophils # (Auto) 0.0 x10^3/uL (0.0-0.7) 0.1 x10^3/uL (0.0-0.7) Basophils # (Auto) 0.0 x10^3/uL (0.0-0.2) 0.0 x10^3/uL (0.0-0.2) Sodium Level 140 mmol/L (136-145) 139 mmol/L (136-145) Potassium Level 3.8 mmol/L (3.5-5.1) 4.3 mmol/L (3.5-5.1) Chloride Level 102 mmol/L (98-107) 102 mmol/L (98-107) Carbon Dioxide Level 25 mmol/L (21-32) 24 mmol/L (21-32) Anion Gap 13 (6-14) 13 (6-14) Blood Urea Nitrogen 23 mg/dL (7-20) 30 mg/dL (7-20) Creatinine 3.1 mg/dL (0.6-1.0) 4.3 mg/dL (0.6-1.0) Estimated GFR (Cockcroft-Gault) 17.4 11.9 BUN/Creatinine Ratio 7 (6-20) Glucose Level 296 mg/dL (70-99) 249 mg/dL (70-99) Calcium Level 8.3 mg/dL (8.5-10.1) 8.5 mg/dL (8.5-10.1) Total Bilirubin 1.0 mg/dL (0.2-1.0) Aspartate Amino Transf (AST/SGOT) 25 U/L (15-37) Alanine Aminotransferase (ALT/SGPT) 20 U/L (14-59) Alkaline Phosphatase 224 U/L (46-116) Troponin I Quantitative 0.040 ng/mL (0.000-0.055) BG-Ufl-S-Type Natriuretic Peptide > 72518 pg/mL (0-449) Total Protein 7.4 g/dL (6.4-8.2) Albumin 3.2 g/dL (3.4-5.0) Albumin/Globulin Ratio 0.8 (1.0-1.7) Glucose (Fingerstick) 196 mg/dL (70-99) Segmented Neutrophils % 78 % (35-66) Band Neutrophils % 2 % (0-9) Lymphocytes % 9 % (24-48) Monocytes % 9 % (0-10) Eosinophils % 2 % (0-5) Nucleated Red Blood Cells 1 Platelet Estimate Adequate (ADEQUATE) Influenza Type A Antigen Negative (NEGATIVE) Influenza Type B Antigen Negative (NEGATIVE) Assessment/Plan Assessment/Plan IMP CHF-SUSPECT ACUTE ON CHRONIC DIASTOLIC ORTHOPNEA DM II HTN ANEMIA ESRD-TTS PLAN CARDIOLOGY EVALUATION HD EXTRA TODAY UF TODAY 2.0-2.5 LITERS TOLERATED JUDITH WHEN NEEDED WILL FOLLOW JAVID BLANCHARD MD Aug 02, 2018 10:59
[2018-08-02 11:00] VITALS: BP 174/66
[2018-08-02] MEDS ORDERED: DEXTROSE 50% 25 GM / 50ML DISP.SYRIN. IV PRN (11:15)
[2018-08-02] MEDS: INSULIN LISPRO 300 UNITS/3 ML INSULN.PEN. SQ SCH ×2 (12:00→17:00)
--- NOTE | 2018-08-02 12:08 | CARD ---
MR#: [id number] Date of Study: 08/02/2018 Ordering Physician: VEDA SPRING, Referring Physician: Torsten MALAVE Tech: Betzaida Odonnell RDCS APPROVED REPORT EXAM: Two-dimensional and M-mode echocardiogram with Doppler and color Doppler. Other Information Quality : AverageHR: 73bpm Rhythm : NSR INDICATION Congestive Heart Failure 2D DIMENSIONS RVDd3.8 (2.9-3.5cm)Left Atrium(2D)4.8 (1.6-4.0cm) IVSd1.0 (0.7-1.1cm)Aortic Root(2D)2.9 (2.0-3.7cm) LVDd5.6 (3.9-5.9cm)LVOT Diameter1.8 (1.8-2.4cm) PWd0.8 (0.7-1.1cm)LVDs4.8 (2.5-4.0cm) FS (%) 14.3 %SV45.7 ml LVEF(%)30.1 (>50%) M-Mode DIMENSIONS Left Atrium(MM)4.80 (2.5-4.0cm)Aortic Root2.81 (2.2-3.7cm) Aortic Valve AoV Peak Stephen.158.2cm/sAoV VTI31.6cm AO Peak GR.10.0mmHgLVOT Peak Stephen.84.6cm/s AO Mean GR.4mmHgAVA (VMAX)1.42cm2 DIDI (VTI)1.61ne5GP P 1/2 Uilp261ud Mitral Valve MV E Ykbesjzb253.5cm/sMV E Peak Gr.9mmHg MV DECEL [id number] A Tqussikg06.3cm/s MV E Mean Gr.3mmHgE/A Ratio1.5 Pulmonary Valve PV Peak Wencohjs17.9cm/s Tricuspid Valve TR P. Ztwjnibd388jz/sRAP LZIXZDKF11ogVr TR Peak Gr.16jfUsMTKR54pwQd LEFT VENTRICLE The Left Ventricle is borderline dilated. There is normal left ventricular wall thickness. The ejecti on fraction is moderately to severely impaired. The Ejection Fraction is 25-30%. There is global hypo kinesis of the left ventricle. Transmitral Doppler flow pattern is Grade III-reversible restrictive d iastolic dysfunction. No left ventricle thrombus noted on this study. RIGHT VENTRICLE The right ventricle is mildly dilated. There is normal right ventricular wall thickness. Systolic fun ction is mildly reduced. Pacer/ICD lead noted in RV/RA. ATRIA The left atrium is moderately dilated. The right atrium is mildly dilated. The interatrial septum is intact with no evidence for an atrial septal defect or patent foramen ovale as noted on 2-D or Dopple r imaging. AORTIC VALVE The aortic valve is calcified but opens well. The aortic valve is trileaflet. Doppler and Color Flow revealed moderate aortic regurgitation. There is no significant aortic valvular stenosis. There is no aortic valvular vegetation. MITRAL VALVE The mitral valve leaflets are calcified. There is no evidence of mitral valve prolapse. There is no m itral valve stenosis. Doppler and Color-flow revealed mild mitral regurgitation. TRICUSPID VALVE The tricuspid valve is normal in structure and function. Doppler and Color Flow revealed moderate tri cuspid regurgitation. There is severe pulmonary hypertension. The PA pressure was estimated at 81 mmH g. There is no tricuspid valve prolapse or vegetation. There is no tricuspid valve stenosis. PULMONIC VALVE The pulmonic valve is not well visualized. Doppler and Color Flow revealed mild pulmonic valvular reg urgitation. There is no pulmonic valvular stenosis. GREAT VESSELS The aortic root is normal in size. The ascending aorta is normal in size. The IVC is dilated and john apses <50% with inspiration. PERICARDIAL EFFUSION There is no evidence of significant pericardial effusion. Critical Notification Critical Value: No <Conclusion> The ejection fraction is moderately to severely impaired. The Ejection Fraction is 25-30%. There is global hypokinesis of the left ventricle. Transmitral Doppler flow pattern is Grade III-reversible restrictive diastolic dysfunction. Pacer/ICD lead noted in RV/RA. Doppler and Color Flow revealed moderate aortic regurgitation. Doppler and Color Flow revealed moderate tricuspid regurgitation. There is severe pulmonary hypertens ion. The PA pressure was estimated at 81 mmHg. Signed by : Bam Shaffer, Electronically Approved : 08/02/2018 12:08:11
--- NOTE | 2018-08-02 15:11 | CONS ---
DATE OF CONSULTATION: ATTENDING PHYSICIAN: Dr. Vicente Nichole. REASON FOR CONSULTATION: Bronchospasm. HISTORY OF PRESENT ILLNESS: The patient is an 83-year-old female who has no significant history of tobacco use. She has history of end-stage renal disease, on hemodialysis. She was brought into the hospital with complaint of shortness of breath. She has a cough, which has been nonproductive. No fever, no chills. No chest pains. She has some mild lower extremity edema. She was found to be in congestive heart failure. I have reviewed the chest x-ray. This is consistent with mild CHF. She was wheezing. Currently, she is being under dialysis that is why I saw the patient. The patient has history of severe cardiomyopathy with an EF of 25%-30% and also grade 3 diastolic dysfunction. In addition, she had moderate aortic regurgitation. She has secondary pulmonary hypertension. No headaches, no nausea or vomiting, no diarrhea, no dysuria. PAST MEDICAL HISTORY: History of CAD, history of CHF, history of valvular heart disease, TIA. PAST SURGICAL HISTORY: Cholecystectomy, mastectomy, hysterectomy, PCI and stent to RCA and AICD. REVIEW OF SYSTEMS: Ten-point system obtained. Pertinent positives discussed in my history of present illness, otherwise noncontributory. All systems that were negative were reviewed as well. FAMILY HISTORY: Diabetes and heart disease. SOCIAL HISTORY: Quit 30 years ago, smoked minimally for 15 years. ALLERGIES: MORPHINE. MEDICATIONS: All reviewed as listed in the MRAD. REVIEW OF SYSTEMS: A 12-point system obtained. Pertinent positives discussed in my history of present illness, otherwise noncontributory. All systems that were negative were reviewed as well. PHYSICAL EXAMINATION: VITAL SIGNS: Reviewed. Blood pressure on the high side. Afebrile, pulse ox 98% room air. NECK: Supple. LUNGS: With faint expiratory wheezes. CARDIOVASCULAR: Regular rate. ABDOMEN: Soft, nontender. EXTREMITIES: With 1+ pitting edema. LABORATORY DATA: Reviewed. White cell count 6.5, hemoglobin 11.5. BUN 30, creatinine 4.3. BNP is 35,000. IMPRESSION: 1. Bronchospasm, likely related to congestive heart failure. 2. Abnormal chest x-ray consistent with mild congestive heart failure. 3. Severe cardiomyopathy with an ejection fraction of 25%-30% also has grade 3 diastolic dysfunction and moderate aortic regurgitation. She has severe pulmonary hypertension, which is secondary to her valvular heart disease and cardiac dysfunction. 4. No significant history of tobacco use. RECOMMENDATIONS: 1. We will add bronchodilators. 2. Would recommend increase ultrafiltration with hemodialysis that should improve her bronchospasm more than bronchodilators. 3. Follow up chest x-ray post-dialysis. 4. P.r.n. oxygen. 5. We will follow along with you. BEE HUTCHINSON MD DR: ROSY/pradip JOB#: [id number] / [id number] KENDAL
--- NOTE | 2018-08-02 16:31 | RAD ---
CT of the chest without contrast, 08/02/2018: HISTORY: Dyspnea, possible pneumonia Noncontrast scans were obtained. There is moderate calcific plaquing of the thoracic aorta without evidence of aneurysm. Moderate coronary artery calcifications are present. Transvenous pacing leads extend into the right heart. The heart is generally enlarged. No mediastinal adenopathy is seen. There are a few faint scattered groundglass opacities in the lungs. These are nonspecific findings which could be due to inflammation, scarring or minimal edema. No dense pulmonary consolidation or mass is seen. A few scattered linear parenchymal opacities are compatible with scarring. No significant interlobular septal thickening is evident. No pleural fluid is identified. The kidneys are atrophic and contain multiple low and high density nodules most likely represent a combination of simple and complicated cysts. There is no evidence of hydronephrosis. Moderate scattered degenerative changes are present in the spine. There is an abnormal trabecular pattern within the L2 and T9 vertebral bodies likely representing vertebral hemangiomas. There is moderate subcutaneous edema with dominant involvement of the right lateral chest wall and right flank region. This may represent dependent edema if the patient tends to lie on her right side. Cellulitis could also give this appearance. Clinical correlation suggested. IMPRESSION: 1. Cardiomegaly with calcific plaquing of the aorta and coronary arteries. 2. Minimal patchy nonspecific groundglass opacities in the lungs. 3. Atrophic kidneys containing multiple simple and complicated cysts. 4. Chest wall and flank subcutaneous edema, worse on the right. PQRS Compliance Statement: One or more of the following individualized dose reduction techniques were utilized for this examination: 1. Automated exposure control 2. Adjustment of the mA and/or kV according to patient size 3. Use of iterative reconstruction technique Electronically signed by: Toñito Herr MD (08/02/2018 4:28 PM) [facility]
[2018-08-02] MEDS: IPRATRPIUM/ALBUTEROL 0.5/2.5MG 3 ML NEBU. NEB SCH ×2 (16:44→20:56)
--- NOTE | 2018-08-02 18:11 | PDOC1 ---
History and Physical Date of Admission Date of Admission 08/01/18 Identification/Chief Complaint Chief Complaint shortness of breath, orthopnea Source Source: Chart review, Patient History of Present Illness History of Present Illness She is an ESRD pt on dialysis who has been seeing cardiology for CHF and despite routine dialysis and getting to basal weight she has had increased dyspnea and came to ER on encouragement by Dr. Bone and found to be in heart failure and admitted, since admission she has developed bronchospasm and pulm is also consulted and bronchodilaters ordered, trying to avoid steroids as her blood sugar is high. Hyperglycemia may also be contributing to her heart failure. He EF is approximately 25%. She denies flu like symptoms or other acute changes Past Medical History Cardiovascular: CAD, CHF, HTN, Other Pulmonary: Other CENTRAL NERVOUS SYSTEM: TIA GI: GERD Heme/Onc: Anemia NOS, Cancer Hepatobiliary: No pertinent hx Psych: No pertinent hx Rheumatologic: No pertinent hx Infectious disease: No pertinent hx Renal/: Chronic renal failure Endocrine: Diabetes, Hyperparathyroidism Past Surgical History Past Surgical History: Appendectomy, Cholecystectomy, Cataract Removal, Mastectomy, Hysterectomy, Other Family History Family History: Diabetes, Heart Disease Social History Smoke: Quit (remotely) ALCOHOL: none Drugs: None Current Problem List Problem List Problems Medical Problems: (1) CHF exacerbation Status: Acute Current Medications Current Medications Current Medications Medications (Trade) Dose Ordered Sig/Sahil Start Time Stop Time Status Last Admin Dose Admin Albuterol Sulfate (Ventolin Neb Soln) 2.5 mg 1X ONCE 08/02/18 10:45 08/02/18 10:46 DC Albuterol/ Ipratropium (Duoneb) 3 ml RTQID 08/02/18 16:00 08/02/18 16:44 3 ML Aspirin (Children'S Aspirin) 81 mg DAILY 08/02/18 09:00 08/02/18 09:48 81 MG Atorvastatin Calcium (Lipitor) 20 mg HS 08/01/18 23:00 08/01/18 22:55 20 MG Carvedilol (Coreg) 6.25 mg BIDWMEALS 08/02/18 08:00 08/02/18 09:50 6.25 MG Dextrose (Dextrose 50%-Water Syringe) 12.5 gm PRN Q15MIN PRN 08/02/18 11:15 Ergocalciferol (Vitamin D2) 50,000 unit WEEKLY 08/08/18 09:00 Furosemide (Lasix) 40 mg DAILY 08/02/18 09:00 08/02/18 09:49 40 MG Hydralazine HCl (Apresoline) 50 mg BID 08/01/18 23:00 08/02/18 09:49 50 MG Info (PHARMACY MONITORING -- do not chart) 1 each PRN DAILY PRN 08/02/18 10:30 Insulin Glargine (Lantus) 10 units QHS 08/02/18 21:00 Insulin Human Lispro (HumaLOG) 0-5 UNITS TIDWMEALS 08/02/18 12:00 Levothyroxine Sodium (Synthroid) 75 mcg DAILY06 08/02/18 06:00 08/02/18 05:30 75 MCG Oxycodone/ Acetaminophen (Percocet 5/325) 1 tab PRN Q4HRS PRN 08/01/18 22:45 08/02/18 03:22 1 TAB Pantoprazole Sodium (Protonix) 40 mg BIDAC 08/02/18 07:30 08/02/18 09:48 40 MG Sertraline HCl (Zoloft) 25 mg DAILY 08/02/18 09:00 08/02/18 09:49 25 MG Sevelamer Carbonate (Renvela) 800 mg TIDWMEALS 08/02/18 08:00 Sodium Chloride 1,000 ml @ 400 mls/hr Q2H30M PRN 08/02/18 10:28 08/02/18 22:27 Sucralfate (Carafate) 1 gm TIDAC 08/02/18 07:30 08/02/18 09:56 1 GM Tramadol HCl (Ultram) 50 mg PRN Q6HRS PRN 08/01/18 22:45 08/02/18 09:54 50 MG Trazodone HCl (Desyrel) 50 mg PRN QHS PRN 08/01/18 22:45 08/01/18 22:56 50 MG Vitamin B Complex/ Vitamin C (Johana-Manuel) 1 tab DAILY 08/02/18 09:00 Allergies Allergies Allergies Coded Allergies Type Severity Reaction Last Updated Verified adhesive tape Allergy Intermediate PAPER TAPE 09/27/17 Yes morphine Allergy Mild Itching 03/15/18 Yes ROS Review of System CONSTITUTIONAL: No fever or chills EYES: No recent changes SKIN: No rash or itching CARDIOVASCULAR: No chest pain, syncope, palpitations, or edema RESPIRATORY: + SOB and now wheezing GASTROINTESTINAL: No nausea, vomiting or abdominal pain NEUROLOGICAL: No headaches or weakness ENDOCRINE: No cold or heat intolerance GENITOURINARY: No urgency or frequency of urination MUSCULOSKELETAL: No back pain or joint pain LYMPHATICS: No enlarged lymph nodes PSYCHIATRIC: No anxiety or depression Physical Exam Physical Exam GEN.: No apparent distress. Alert and oriented. Sitting upright in chair HEENT: Head is normocephalic, atraumatic NECK: Supple. LUNGS: bilateral coarse expiratory wheezes. HEART: RRR, S1, S2 present. Peripheral pulses intact ABDOMEN: Soft, nontender. Positive bowel sounds. EXTREMITIES: Without any cyanosis. NEUROLOGIC: Normal speech, normal tone PSYCHIATRIC: Normal affect, normal mood. SKIN: No ulcerations Vitals Vitals Vital Signs Date Time Temp Pulse Resp B/P (MAP) Pulse Ox O2 Delivery O2 Flow Rate FiO2 08/02/18 16:46 95 Room Air 08/02/18 11:00 98.3 72 20 174/66 (102) 98.3 Labs Labs Laboratory Tests Test 08/01/18 18:25 08/02/18 07:46 08/02/18 09:10 08/02/18 09:47 White Blood Count 5.8 x10^3/uL (4.0-11.0) 6.5 x10^3/uL (4.0-11.0) Red Blood Count 3.23 x10^6/uL (3.50-5.40) 3.48 x10^6/uL (3.50-5.40) Hemoglobin 10.9 g/dL (12.0-15.5) 11.5 g/dL (12.0-15.5) Hematocrit 33.4 % (36.0-47.0) 36.2 % (36.0-47.0) Mean Corpuscular Volume 104 fL (79-100) 104 fL (79-100) Mean Corpuscular Hemoglobin 34 pg (25-35) 33 pg (25-35) Mean Corpuscular Hemoglobin Concent 33 g/dL (31-37) 32 g/dL (31-37) Red Cell Distribution Width 17.9 % (11.5-14.5) 18.1 % (11.5-14.5) Platelet Count 130 x10^3/uL (140-400) 159 x10^3/uL (140-400) Neutrophils (%) (Auto) 77 % (31-73) 70 % (31-73) Lymphocytes (%) (Auto) 7 % (24-48) 9 % (24-48) Monocytes (%) (Auto) 15 % (0-9) 19 % (0-9) Eosinophils (%) (Auto) 1 % (0-3) 2 % (0-3) Basophils (%) (Auto) 1 % (0-3) 0 % (0-3) Neutrophils # (Auto) 4.4 x10^3uL (1.8-7.7) 4.5 x10^3uL (1.8-7.7) Lymphocytes # (Auto) 0.4 x10^3/uL (1.0-4.8) 0.6 x10^3/uL (1.0-4.8) Monocytes # (Auto) 0.8 x10^3/uL (0.0-1.1) 1.2 x10^3/uL (0.0-1.1) Eosinophils # (Auto) 0.0 x10^3/uL (0.0-0.7) 0.1 x10^3/uL (0.0-0.7) Basophils # (Auto) 0.0 x10^3/uL (0.0-0.2) 0.0 x10^3/uL (0.0-0.2) Sodium Level 140 mmol/L (136-145) 139 mmol/L (136-145) Potassium Level 3.8 mmol/L (3.5-5.1) 4.3 mmol/L (3.5-5.1) Chloride Level 102 mmol/L (98-107) 102 mmol/L (98-107) Carbon Dioxide Level 25 mmol/L (21-32) 24 mmol/L (21-32) Anion Gap 13 (6-14) 13 (6-14) Blood Urea Nitrogen 23 mg/dL (7-20) 30 mg/dL (7-20) Creatinine 3.1 mg/dL (0.6-1.0) 4.3 mg/dL (0.6-1.0) Estimated GFR (Cockcroft-Gault) 17.4 11.9 BUN/Creatinine Ratio 7 (6-20) Glucose Level 296 mg/dL (70-99) 249 mg/dL (70-99) Calcium Level 8.3 mg/dL (8.5-10.1) 8.5 mg/dL (8.5-10.1) Total Bilirubin 1.0 mg/dL (0.2-1.0) Aspartate Amino Transf (AST/SGOT) 25 U/L (15-37) Alanine Aminotransferase (ALT/SGPT) 20 U/L (14-59) Alkaline Phosphatase 224 U/L (46-116) Troponin I Quantitative 0.040 ng/mL (0.000-0.055) EK-Uaz-O-Type Natriuretic Peptide > 35339 pg/mL (0-449) Total Protein 7.4 g/dL (6.4-8.2) Albumin 3.2 g/dL (3.4-5.0) Albumin/Globulin Ratio 0.8 (1.0-1.7) Glucose (Fingerstick) 196 mg/dL (70-99) Segmented Neutrophils % 78 % (35-66) Band Neutrophils % 2 % (0-9) Lymphocytes % 9 % (24-48) Monocytes % 9 % (0-10) Eosinophils % 2 % (0-5) Nucleated Red Blood Cells 1 Platelet Estimate Adequate (ADEQUATE) Influenza Type A Antigen Negative (NEGATIVE) Influenza Type B Antigen Negative (NEGATIVE) Test 08/02/18 11:07 08/02/18 16:45 Glucose (Fingerstick) 263 mg/dL (70-99) 168 mg/dL (70-99) Laboratory Tests Test 08/01/18 18:25 08/02/18 07:46 08/02/18 09:10 08/02/18 09:47 White Blood Count 5.8 x10^3/uL (4.0-11.0) 6.5 x10^3/uL (4.0-11.0) Red Blood Count 3.23 x10^6/uL (3.50-5.40) 3.48 x10^6/uL (3.50-5.40) Hemoglobin 10.9 g/dL (12.0-15.5) 11.5 g/dL (12.0-15.5) Hematocrit 33.4 % (36.0-47.0) 36.2 % (36.0-47.0) Mean Corpuscular Volume 104 fL (79-100) 104 fL (79-100) Mean Corpuscular Hemoglobin 34 pg (25-35) 33 pg (25-35) Mean Corpuscular Hemoglobin Concent 33 g/dL (31-37) 32 g/dL (31-37) Red Cell Distribution Width 17.9 % (11.5-14.5) 18.1 % (11.5-14.5) Platelet Count 130 x10^3/uL (140-400) 159 x10^3/uL (140-400) Neutrophils (%) (Auto) 77 % (31-73) 70 % (31-73) Lymphocytes (%) (Auto) 7 % (24-48) 9 % (24-48) Monocytes (%) (Auto) 15 % (0-9) 19 % (0-9) Eosinophils (%) (Auto) 1 % (0-3) 2 % (0-3) Basophils (%) (Auto) 1 % (0-3) 0 % (0-3) Neutrophils # (Auto) 4.4 x10^3uL (1.8-7.7) 4.5 x10^3uL (1.8-7.7) Lymphocytes # (Auto) 0.4 x10^3/uL (1.0-4.8) 0.6 x10^3/uL (1.0-4.8) Monocytes # (Auto) 0.8 x10^3/uL (0.0-1.1) 1.2 x10^3/uL (0.0-1.1) Eosinophils # (Auto) 0.0 x10^3/uL (0.0-0.7) 0.1 x10^3/uL (0.0-0.7) Basophils # (Auto) 0.0 x10^3/uL (0.0-0.2) 0.0 x10^3/uL (0.0-0.2) Sodium Level 140 mmol/L (136-145) 139 mmol/L (136-145) Potassium Level 3.8 mmol/L (3.5-5.1) 4.3 mmol/L (3.5-5.1) Chloride Level 102 mmol/L (98-107) 102 mmol/L (98-107) Carbon Dioxide Level 25 mmol/L (21-32) 24 mmol/L (21-32) Anion Gap 13 (6-14) 13 (6-14) Blood Urea Nitrogen 23 mg/dL (7-20) 30 mg/dL (7-20) Creatinine 3.1 mg/dL (0.6-1.0) 4.3 mg/dL (0.6-1.0) Estimated GFR (Cockcroft-Gault) 17.4 11.9 BUN/Creatinine Ratio 7 (6-20) Glucose Level 296 mg/dL (70-99) 249 mg/dL (70-99) Calcium Level 8.3 mg/dL (8.5-10.1) 8.5 mg/dL (8.5-10.1) Total Bilirubin 1.0 mg/dL (0.2-1.0) Aspartate Amino Transf (AST/SGOT) 25 U/L (15-37) Alanine Aminotransferase (ALT/SGPT) 20 U/L (14-59) Alkaline Phosphatase 224 U/L (46-116) Troponin I Quantitative 0.040 ng/mL (0.000-0.055) FB-Ayw-G-Type Natriuretic Peptide > 13779 pg/mL (0-449) Total Protein 7.4 g/dL (6.4-8.2) Albumin 3.2 g/dL (3.4-5.0) Albumin/Globulin Ratio 0.8 (1.0-1.7) Glucose (Fingerstick) 196 mg/dL (70-99) Segmented Neutrophils % 78 % (35-66) Band Neutrophils % 2 % (0-9) Lymphocytes % 9 % (24-48) Monocytes % 9 % (0-10) Eosinophils % 2 % (0-5) Nucleated Red Blood Cells 1 Platelet Estimate Adequate (ADEQUATE) Influenza Type A Antigen Negative (NEGATIVE) Influenza Type B Antigen Negative (NEGATIVE) Test 08/02/18 11:07 08/02/18 16:45 Glucose (Fingerstick) 263 mg/dL (70-99) 168 mg/dL (70-99) Images Images CT chest IMPRESSION: 1. Cardiomegaly with calcific plaquing of the aorta and coronary arteries. 2. Minimal patchy nonspecific ground glass opacities in the lungs. 3. Atrophic kidneys containing multiple simple and complicated cysts. 4. Chest wall and flank subcutaneous edema, worse on the right. 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
[2018-08-02 19:00] VITALS: BP 142/65
[2018-08-02] MEDS: ATORVASTATIN CALCIUM 20 MG TABLET PO SCH (21:43)
[2018-08-02] MEDS: INSULIN GLARGINE 300 UNITS/3 ML INSULN.PEN. SQ SCH (21:51)
[2018-08-02 22:14] LABS: HEMOGLOBIN A1C 6.7 % (4.8-5.6)
[2018-08-02 23:00] VITALS: BP 152/58
[2018-08-03 03:53] VITALS: BP 158/65
[2018-08-03] MEDS: oxyCODONE/APAP 5/325 1 TAB TABLET PO PRN (05:10)
[2018-08-03] MEDS: LEVOTHYROXINE 75 MCG TABLET PO SCH (05:10)
[2018-08-03] MEDS ORDERED: IV NORMAL SALINE 1000ML BAG 1,000 ML IV PRN ×2 (06:35)
[2018-08-03] MEDS ORDERED: ALBUMIN HUMAN 25% 200 ML IV PRN (06:45)
[2018-08-03] MEDS ORDERED: diphenhydrAMINE 50 MG/ML VIAL IV PRN ×2 (06:45)
[2018-08-03] MEDS ORDERED: DIALYSIS PATIENT. MC PRN (06:45)
[2018-08-03] MEDS ORDERED: ACETAMINOPHEN 500 MG TABLET PO PRN (06:45)
[2018-08-03 07:00] VITALS: BP 160/73
[2018-08-03] MEDS: PANTOPRAZOLE 40 MG TABLET.DR. PO SCH ×2 (07:29→17:10)
[2018-08-03] MEDS: SUCRALFATE 1 GM TABLET. PO SCH ×3 (07:29→17:10)
[2018-08-03] MEDS: SEVELAMER CARBONATE 800 MG TABLET. PO SCH ×4 (07:29→16:54)
[2018-08-03] MEDS: CARVEDILOL 6.25 MG TABLET. PO SCH ×2 (08:00→17:11)
[2018-08-03] MEDS: INSULIN LISPRO 300 UNITS/3 ML INSULN.PEN. SQ SCH ×3 (08:00→17:14)
[2018-08-03] MEDS: IPRATRPIUM/ALBUTEROL 0.5/2.5MG 3 ML NEBU. NEB SCH ×4 (08:00→19:50)
--- NOTE | 2018-08-03 08:39 | PDOC ---
PULMONARY PROGRESS NOTES Subjective on hd, has cough, small sputum, has post nasal drip Vitals Vital Signs Date Time Temp Pulse Resp B/P (MAP) Pulse Ox O2 Delivery O2 Flow Rate FiO2 08/03/18 07:00 98.0 64 18 160/73 (102) 95 Room Air 98.0 General: Alert, No acute distress Lungs: Other (a few end exp wheezing) Cardiovascular: S1, S2 Abdomen: Soft, Non-tender Neuro Exam: Alert Extremities: No Edema Skin: Warm Labs Laboratory Tests Test 08/01/18 18:25 08/02/18 07:46 08/02/18 09:10 08/02/18 09:47 White Blood Count 5.8 x10^3/uL (4.0-11.0) 6.5 x10^3/uL (4.0-11.0) Red Blood Count 3.23 x10^6/uL (3.50-5.40) 3.48 x10^6/uL (3.50-5.40) Hemoglobin 10.9 g/dL (12.0-15.5) 11.5 g/dL (12.0-15.5) Hematocrit 33.4 % (36.0-47.0) 36.2 % (36.0-47.0) Mean Corpuscular Volume 104 fL (79-100) 104 fL (79-100) Mean Corpuscular Hemoglobin 34 pg (25-35) 33 pg (25-35) Mean Corpuscular Hemoglobin Concent 33 g/dL (31-37) 32 g/dL (31-37) Red Cell Distribution Width 17.9 % (11.5-14.5) 18.1 % (11.5-14.5) Platelet Count 130 x10^3/uL (140-400) 159 x10^3/uL (140-400) Neutrophils (%) (Auto) 77 % (31-73) 70 % (31-73) Lymphocytes (%) (Auto) 7 % (24-48) 9 % (24-48) Monocytes (%) (Auto) 15 % (0-9) 19 % (0-9) Eosinophils (%) (Auto) 1 % (0-3) 2 % (0-3) Basophils (%) (Auto) 1 % (0-3) 0 % (0-3) Neutrophils # (Auto) 4.4 x10^3uL (1.8-7.7) 4.5 x10^3uL (1.8-7.7) Lymphocytes # (Auto) 0.4 x10^3/uL (1.0-4.8) 0.6 x10^3/uL (1.0-4.8) Monocytes # (Auto) 0.8 x10^3/uL (0.0-1.1) 1.2 x10^3/uL (0.0-1.1) Eosinophils # (Auto) 0.0 x10^3/uL (0.0-0.7) 0.1 x10^3/uL (0.0-0.7) Basophils # (Auto) 0.0 x10^3/uL (0.0-0.2) 0.0 x10^3/uL (0.0-0.2) Sodium Level 140 mmol/L (136-145) 139 mmol/L (136-145) Potassium Level 3.8 mmol/L (3.5-5.1) 4.3 mmol/L (3.5-5.1) Chloride Level 102 mmol/L (98-107) 102 mmol/L (98-107) Carbon Dioxide Level 25 mmol/L (21-32) 24 mmol/L (21-32) Anion Gap 13 (6-14) 13 (6-14) Blood Urea Nitrogen 23 mg/dL (7-20) 30 mg/dL (7-20) Creatinine 3.1 mg/dL (0.6-1.0) 4.3 mg/dL (0.6-1.0) Estimated GFR (Cockcroft-Gault) 17.4 11.9 BUN/Creatinine Ratio 7 (6-20) Glucose Level 296 mg/dL (70-99) 249 mg/dL (70-99) Calcium Level 8.3 mg/dL (8.5-10.1) 8.5 mg/dL (8.5-10.1) Total Bilirubin 1.0 mg/dL (0.2-1.0) Aspartate Amino Transf (AST/SGOT) 25 U/L (15-37) Alanine Aminotransferase (ALT/SGPT) 20 U/L (14-59) Alkaline Phosphatase 224 U/L (46-116) Troponin I Quantitative 0.040 ng/mL (0.000-0.055) ZU-Bxr-W-Type Natriuretic Peptide > 00620 pg/mL (0-449) Total Protein 7.4 g/dL (6.4-8.2) Albumin 3.2 g/dL (3.4-5.0) Albumin/Globulin Ratio 0.8 (1.0-1.7) Glucose (Fingerstick) 196 mg/dL (70-99) Segmented Neutrophils % 78 % (35-66) Band Neutrophils % 2 % (0-9) Lymphocytes % 9 % (24-48) Monocytes % 9 % (0-10) Eosinophils % 2 % (0-5) Nucleated Red Blood Cells 1 Platelet Estimate Adequate (ADEQUATE) Hemoglobin A1c 6.7 % (4.8-5.6) Influenza Type A Antigen Negative (NEGATIVE) Influenza Type B Antigen Negative (NEGATIVE) Test 08/02/18 11:07 08/02/18 14:22 08/02/18 16:45 08/02/18 20:23 Glucose (Fingerstick) 263 mg/dL (70-99) 168 mg/dL (70-99) 296 mg/dL (70-99) Hepatitis B Surface Antigen Nonreactive (Nonreactive) Test 08/03/18 05:03 08/03/18 07:27 Glucose (Fingerstick) 161 mg/dL (70-99) 138 mg/dL (70-99) Laboratory Tests Test 08/02/18 09:10 08/02/18 09:47 08/02/18 11:07 08/02/18 14:22 White Blood Count 6.5 x10^3/uL (4.0-11.0) Red Blood Count 3.48 x10^6/uL (3.50-5.40) Hemoglobin 11.5 g/dL (12.0-15.5) Hematocrit 36.2 % (36.0-47.0) Mean Corpuscular Volume 104 fL (79-100) Mean Corpuscular Hemoglobin 33 pg (25-35) Mean Corpuscular Hemoglobin Concent 32 g/dL (31-37) Red Cell Distribution Width 18.1 % (11.5-14.5) Platelet Count 159 x10^3/uL (140-400) Neutrophils (%) (Auto) 70 % (31-73) Lymphocytes (%) (Auto) 9 % (24-48) Monocytes (%) (Auto) 19 % (0-9) Eosinophils (%) (Auto) 2 % (0-3) Basophils (%) (Auto) 0 % (0-3) Neutrophils # (Auto) 4.5 x10^3uL (1.8-7.7) Lymphocytes # (Auto) 0.6 x10^3/uL (1.0-4.8) Monocytes # (Auto) 1.2 x10^3/uL (0.0-1.1) Eosinophils # (Auto) 0.1 x10^3/uL (0.0-0.7) Basophils # (Auto) 0.0 x10^3/uL (0.0-0.2) Segmented Neutrophils % 78 % (35-66) Band Neutrophils % 2 % (0-9) Lymphocytes % 9 % (24-48) Monocytes % 9 % (0-10) Eosinophils % 2 % (0-5) Nucleated Red Blood Cells 1 Platelet Estimate Adequate (ADEQUATE) Sodium Level 139 mmol/L (136-145) Potassium Level 4.3 mmol/L (3.5-5.1) Chloride Level 102 mmol/L (98-107) Carbon Dioxide Level 24 mmol/L (21-32) Anion Gap 13 (6-14) Blood Urea Nitrogen 30 mg/dL (7-20) Creatinine 4.3 mg/dL (0.6-1.0) Estimated GFR (Cockcroft-Gault) 11.9 Glucose Level 249 mg/dL (70-99) Hemoglobin A1c 6.7 % (4.8-5.6) Calcium Level 8.5 mg/dL (8.5-10.1) Influenza Type A Antigen Negative (NEGATIVE) Influenza Type B Antigen Negative (NEGATIVE) Glucose (Fingerstick) 263 mg/dL (70-99) Hepatitis B Surface Antigen Nonreactive (Nonreactive) Test 08/02/18 16:45 08/02/18 20:23 08/03/18 05:03 08/03/18 07:27 Glucose (Fingerstick) 168 mg/dL (70-99) 296 mg/dL (70-99) 161 mg/dL (70-99) 138 mg/dL (70-99) Medications Active Scripts Medications Dose Route/Sig Max Daily Dose Days Date Category Tramadol Hcl 50 Mg Tablet 50 Mg PO Q6HRS PRN 08/01/18 Reported Renvela (Sevelamer Carbonate) 800 Mg Tablet 800 Mg PO TIDWMEALS 08/01/18 Reported Oxycodone-Acetaminophen 5-325 (Oxycodone Hcl/Acetaminophen) 1 Each Tablet 1 Tab PO PRN Q4HRS PRN 03/18/18 Rx Isosorbide Mononitrate Er (Isosorbide Mononitrate) 30 Mg Tab.er.24h 30 Mg PO DAILY 30 03/13/18 Rx Humalog (Insulin Lispro) 100 Unit/1 Ml Cartridge 0-100 Unit SQ TIDAC 03/11/18 Reported Proair Hfa Inhaler (Albuterol Sulfate) 8.5 Gm Hfa.aer.ad 1 Puff INH PRN Q6HRS PRN 30 02/04/18 Rx Trazodone Hcl 50 Mg Tablet 50 Mg PO PRN QHS PRN 30 02/04/18 Rx Hydralazine Hcl 50 Mg Tablet 50 Mg PO BID 02/01/18 Reported Carafate (Sucralfate) 1 Gm Tablet 1 Gm PO TIDAC 30 10/27/17 Rx Vitamin D2 (Ergocalciferol (Vitamin D2)) 50,000 Unit Capsule 50,000 Unit PO WEEKLY 30 10/27/17 Rx [Pantoprazole] 40 MG Tablet.dr 40 Mg PO BIDAC 30 10/27/17 Rx Lantus Solostar (Insulin Glargine,Hum.rec.anlog) 100 Unit/1 Ml Insuln.pen 5 Units SQ QHS 30 10/08/17 Rx Carvedilol (Carvedilol) 3.125 Mg Tablet 6.25 Mg PO BIDWMEALS 30 02/17/17 Rx Sertraline Hcl 25 Mg Tablet 25 Mg PO DAILY 30 12/03/15 Rx Lipitor (Atorvastatin Calcium) 20 Mg Tablet 20 Mg PO HS 04/06/14 Reported Aspirin 81 Mg Tab.chew 81 Mg PO DAILY 03/05/14 Reported Synthroid (Levothyroxine Sodium) 75 Mcg Tablet 75 Mcg PO DAILYAC 11/22/13 Reported Nephro-Manuel Tablet (Folic Acid/Vitamin B Comp W-C) 0.8 Mg Tablet 0.8 Mg PO DAILY 11/22/13 Reported Lasix (Furosemide) 40 Mg Tablet 40 Mg PO DAILY 11/22/13 Reported Impression . IMPRESSION: 1. Bronchospasm, likely related to congestive heart failure. 2. Abnormal chest x-ray consistent with mild congestive heart failure. 3. Severe cardiomyopathy with an ejection fraction of 25%-30% also has grade 3 diastolic dysfunction and moderate aortic regurgitation. She has severe pulmonary hypertension, which is secondary to her valvular heart disease and cardiac dysfunction. 4. No significant history of tobacco use. 5. allergic rhinitis Plan . RECOMMENDATIONS: 1. bronchodilators. add ICS, add flonase 2. Would recommend increase ultrafiltration with hemodialysis that should improve her bronchospasm more than bronchodilators. 3. Follow up chest x-ray post-dialysis. 4. P.r.n. oxygen. 5. We will follow along with you. ELISE Cannon pt, MD Aug 03, 2018 08:39
[2018-08-03] MEDS: BUDESONIDE 0.5 MG/2 ML NEBU. NEB SCH ×2 (09:00→19:51)
[2018-08-03] MEDS: ASPIRIN CHEWABLE 81 MG TABLET. PO SCH (09:00)
--- NOTE | 2018-08-03 09:57 | PDOC ---
PROGRESS NOTES Subjective Subjective Patient seen in dialysis. C/O sob and feeling poorly. Objective Objective Vital Signs Date Time Temp Pulse Resp B/P (MAP) Pulse Ox O2 Delivery O2 Flow Rate FiO2 08/03/18 07:00 98.0 64 18 160/73 (102) 95 Room Air 98.0 Intake and Output 08/03/18 06:59 Intake Total 540 ml Output Total 0 ml Balance 540 ml Intake Oral 540 ml Output Urine Total 0 ml # Voids 3 Physical Exam Abdomen: Normal bowel sounds Heart: Regular rate Extremities: No edema General: Alert Lungs: Other (distant BS) Assessment Assessment Problems Medical Problems: (1) CHF exacerbation Status: Acute Acute respiratory failure and bronchospasm CHF acute on chronic diastolic and systolic Pulm HTN severe - PA pressure >80 valvular Heart Dz ESRD on dialysis - extra dialysis Uncontrolled type 2 diabetes 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 Labs Laboratory Tests Test 08/01/18 18:25 08/02/18 07:46 08/02/18 09:10 08/02/18 09:47 White Blood Count 5.8 x10^3/uL (4.0-11.0) 6.5 x10^3/uL (4.0-11.0) Red Blood Count 3.23 x10^6/uL (3.50-5.40) 3.48 x10^6/uL (3.50-5.40) Hemoglobin 10.9 g/dL (12.0-15.5) 11.5 g/dL (12.0-15.5) Hematocrit 33.4 % (36.0-47.0) 36.2 % (36.0-47.0) Mean Corpuscular Volume 104 fL (79-100) 104 fL (79-100) Mean Corpuscular Hemoglobin 34 pg (25-35) 33 pg (25-35) Mean Corpuscular Hemoglobin Concent 33 g/dL (31-37) 32 g/dL (31-37) Red Cell Distribution Width 17.9 % (11.5-14.5) 18.1 % (11.5-14.5) Platelet Count 130 x10^3/uL (140-400) 159 x10^3/uL (140-400) Neutrophils (%) (Auto) 77 % (31-73) 70 % (31-73) Lymphocytes (%) (Auto) 7 % (24-48) 9 % (24-48) Monocytes (%) (Auto) 15 % (0-9) 19 % (0-9) Eosinophils (%) (Auto) 1 % (0-3) 2 % (0-3) Basophils (%) (Auto) 1 % (0-3) 0 % (0-3) Neutrophils # (Auto) 4.4 x10^3uL (1.8-7.7) 4.5 x10^3uL (1.8-7.7) Lymphocytes # (Auto) 0.4 x10^3/uL (1.0-4.8) 0.6 x10^3/uL (1.0-4.8) Monocytes # (Auto) 0.8 x10^3/uL (0.0-1.1) 1.2 x10^3/uL (0.0-1.1) Eosinophils # (Auto) 0.0 x10^3/uL (0.0-0.7) 0.1 x10^3/uL (0.0-0.7) Basophils # (Auto) 0.0 x10^3/uL (0.0-0.2) 0.0 x10^3/uL (0.0-0.2) Sodium Level 140 mmol/L (136-145) 139 mmol/L (136-145) Potassium Level 3.8 mmol/L (3.5-5.1) 4.3 mmol/L (3.5-5.1) Chloride Level 102 mmol/L (98-107) 102 mmol/L (98-107) Carbon Dioxide Level 25 mmol/L (21-32) 24 mmol/L (21-32) Anion Gap 13 (6-14) 13 (6-14) Blood Urea Nitrogen 23 mg/dL (7-20) 30 mg/dL (7-20) Creatinine 3.1 mg/dL (0.6-1.0) 4.3 mg/dL (0.6-1.0) Estimated GFR (Cockcroft-Gault) 17.4 11.9 BUN/Creatinine Ratio 7 (6-20) Glucose Level 296 mg/dL (70-99) 249 mg/dL (70-99) Calcium Level 8.3 mg/dL (8.5-10.1) 8.5 mg/dL (8.5-10.1) Total Bilirubin 1.0 mg/dL (0.2-1.0) Aspartate Amino Transf (AST/SGOT) 25 U/L (15-37) Alanine Aminotransferase (ALT/SGPT) 20 U/L (14-59) Alkaline Phosphatase 224 U/L (46-116) Troponin I Quantitative 0.040 ng/mL (0.000-0.055) YC-Aiq-T-Type Natriuretic Peptide > 70911 pg/mL (0-449) Total Protein 7.4 g/dL (6.4-8.2) Albumin 3.2 g/dL (3.4-5.0) Albumin/Globulin Ratio 0.8 (1.0-1.7) Glucose (Fingerstick) 196 mg/dL (70-99) Segmented Neutrophils % 78 % (35-66) Band Neutrophils % 2 % (0-9) Lymphocytes % 9 % (24-48) Monocytes % 9 % (0-10) Eosinophils % 2 % (0-5) Nucleated Red Blood Cells 1 Platelet Estimate Adequate (ADEQUATE) Hemoglobin A1c 6.7 % (4.8-5.6) Influenza Type A Antigen Negative (NEGATIVE) Influenza Type B Antigen Negative (NEGATIVE) Test 08/02/18 11:07 08/02/18 14:22 08/02/18 16:45 08/02/18 20:23 Glucose (Fingerstick) 263 mg/dL (70-99) 168 mg/dL (70-99) 296 mg/dL (70-99) Hepatitis B Surface Antigen Nonreactive (Nonreactive) Test 08/03/18 05:03 08/03/18 07:27 Glucose (Fingerstick) 161 mg/dL (70-99) 138 mg/dL (70-99) Laboratory Tests Test 08/02/18 11:07 08/02/18 14:22 08/02/18 16:45 08/02/18 20:23 Glucose (Fingerstick) 263 mg/dL (70-99) 168 mg/dL (70-99) 296 mg/dL (70-99) Hepatitis B Surface Antigen Nonreactive (Nonreactive) Test 08/03/18 05:03 08/03/18 07:27 Glucose (Fingerstick) 161 mg/dL (70-99) 138 mg/dL (70-99) Medications Current Medications Albuterol Sulfate (Ventolin Neb Soln) 2.5 mg PRN Q6HRS PRN INH SHORTNESS OF BREATH; Start 08/01/18 at 22:45 Aspirin (Children'S Aspirin) 81 mg DAILY PO Last administered on 08/02/18at 09: 48; Start 08/02/18 at 09:00 Atorvastatin Calcium (Lipitor) 20 mg HS PO Last administered on 08/02/18at 21:43 ; Start 08/01/18 at 23:00 Carvedilol (Coreg) 6.25 mg BIDWMEALS PO Last administered on 08/02/18at 18:01; Start 08/02/18 at 08:00 Ergocalciferol (Vitamin D2) 50,000 unit WEEKLY PO ; Start 08/08/18 at 09:00 Vitamin B Complex/ Vitamin C (Johana-Manuel) 1 tab DAILY PO ; Start 08/02/18 at 09: 00 Furosemide (Lasix) 40 mg DAILY PO Last administered on 08/02/18at 09:49; Start 08/02/18 at 09:00 Insulin Glargine (Lantus) 5 units QHS SQ Last administered on 08/01/18at 23:00; Start 08/01/18 at 23:00; Stop 08/02/18 at 11:16; Status DC Levothyroxine Sodium (Synthroid) 75 mcg DAILY06 PO Last administered on at 05:10; Start 08/02/18 at 06:00 Oxycodone/ Acetaminophen (Percocet 5/325) 1 tab PRN Q4HRS PRN PO MILD PAIN, 1ST CHOICE Last administered on 08/03/18 05:10; Start 08/01/18 at 22:45 Sevelamer Carbonate (Renvela) 800 mg TIDWMEALS PO ; Start 08/02/18 at 08:00 Tramadol HCl (Ultram) 50 mg PRN Q6HRS PRN PO MODERATE PAIN Last administered on 08/02/18at 09:54; Start 08/01/18 at 22:45 Trazodone HCl (Desyrel) 50 mg PRN QHS PRN PO INSOMNIA 1ST CHOICE Last administered on 08/01/18at 22:56; Start 08/01/18 at 22:45 Hydralazine HCl (Apresoline) 50 mg BID PO Last administered on 08/02/18at 21:43 ; Start 08/01/18 at 23:00 Sertraline HCl (Zoloft) 25 mg DAILY PO Last administered on 08/02/18at 09:49; Start 08/02/18 at 09:00 Sucralfate (Carafate) 1 gm TIDAC PO Last administered on 08/02/18at 18:01; Start 08/02/18 at 07:30 Pantoprazole Sodium (Protonix) 40 mg BIDAC PO Last administered on 08/02/18at 18 :01; Start 08/02/18 at 07:30 Sodium Chloride 1,000 ml @ 1,000 mls/hr Q1H PRN IV hypotension; Start 08/02/18 at 10:11; Stop 08/02/18 at 16:10; Status DC Sodium Chloride 1,000 ml @ 400 mls/hr Q2H30M PRN IV PATENCY; Start 08/02/18 at 10:11; Stop 08/02/18 at 22:10; Status DC Info (PHARMACY MONITORING -- do not chart) 1 each PRN DAILY PRN MC SEE COMMENTS ; Start 08/02/18 at 10:15; Status UNV Info (PHARMACY MONITORING -- do not chart) 1 each PRN DAILY PRN MC SEE COMMENTS ; Start 08/02/18 at 10:15; Stop 08/02/18 at 18:12; Status DC Sodium Chloride 1,000 ml @ 1,000 mls/hr Q1H PRN IV hypotension; Start 08/02/18 at 10:28; Stop 08/02/18 at 16:27; Status DC Sodium Chloride 1,000 ml @ 400 mls/hr Q2H30M PRN IV PATENCY; Start 08/02/18 at 10:28; Stop 08/02/18 at 22:27; Status DC Info (PHARMACY MONITORING -- do not chart) 1 each PRN DAILY PRN MC SEE COMMENTS ; Start 08/02/18 at 10:30; Status UNV Info (PHARMACY MONITORING -- do not chart) 1 each PRN DAILY PRN MC SEE COMMENTS ; Start 08/02/18 at 10:30 Albuterol Sulfate (Ventolin Neb Soln) 2.5 mg 1X ONCE NEB ; Start 08/02/18 at 10 :45; Stop 08/02/18 at 10:46; Status DC Insulin Glargine (Lantus) 10 units QHS SQ Last administered on 08/02/18at 21:51 ; Start 08/02/18 at 21:00 Insulin Human Lispro (HumaLOG) 0-5 UNITS TIDWMEALS SQ ; Start 08/02/18 at 12:00 Dextrose (Dextrose 50%-Water Syringe) 12.5 gm PRN Q15MIN PRN IV SEE COMMENTS; Start 08/02/18 at 11:15 Albuterol/ Ipratropium (Duoneb) 3 ml RTQID NEB Last administered on 08/02/18at 20:56; Start 08/02/18 at 16:00 Sodium Chloride 1,000 ml @ 1,000 mls/hr Q1H PRN IV hypotension; Start 08/03/18 at 06:35; Stop 08/03/18 at 12:34 Albumin Human 200 ml @ 200 mls/hr 1X PRN PRN IV Hypotension; Start 08/03/18 at 06:45; Stop 08/03/18 at 12:44 Acetaminophen (Tylenol) 500 mg 1X PRN PRN PO MILD PAIN / TEMP; Start 08/03/18 at 06:45; Stop 08/04/18 at 06:44 Diphenhydramine HCl (Benadryl) 25 mg 1X PRN PRN IV ITCHING; Start 08/03/18 at 06:45; Stop 08/04/18 at 06:44 Diphenhydramine HCl (Benadryl) 25 mg 1X PRN PRN IV ITCHING; Start 08/03/18 at 06:45; Stop 08/04/18 at 06:44 Sodium Chloride 1,000 ml @ 400 mls/hr Q2H30M PRN IV PATENCY; Start 08/03/18 at 06:35; Stop 08/03/18 at 18:34 Info (PHARMACY MONITORING -- do not chart) 1 each PRN DAILY PRN MC SEE COMMENTS ; Start 08/03/18 at 06:45 Fluticasone Propionate (Flonase) 2 spray DAILY NS ; Start 08/03/18 at 09:00 Budesonide (Pulmicort) 0.5 mg RTBID NEB ; Start 08/03/18 at 09:00 Active Scripts Active Oxycodone-Acetaminophen 5-325 (Oxycodone Hcl/Acetaminophen) 1 Each Tablet 1 Tab PO PRN Q4HRS PRN Isosorbide Mononitrate Er (Isosorbide Mononitrate) 30 Mg Tab.er.24h 30 Mg PO DAILY 30 Days Proair Hfa Inhaler (Albuterol Sulfate) 8.5 Gm Hfa.aer.ad 1 Puff INH PRN Q6HRS PRN 30 Days Trazodone Hcl 50 Mg Tablet 50 Mg PO PRN QHS PRN 30 Days Carafate (Sucralfate) 1 Gm Tablet 1 Gm PO TIDAC 30 Days Vitamin D2 (Ergocalciferol (Vitamin D2)) 50,000 Unit Capsule 50,000 Unit PO WEEKLY 30 Days [Pantoprazole] 40 MG Tablet.dr 40 Mg PO BIDAC 30 Days Lantus Solostar (Insulin Glargine,Hum.rec.anlog) 100 Unit/1 Ml Insuln.pen 5 Units SQ QHS 30 Days Carvedilol (Carvedilol) 3.125 Mg Tablet 6.25 Mg PO BIDWMEALS 30 Days Sertraline Hcl 25 Mg Tablet 25 Mg PO DAILY 30 Days Reported Tramadol Hcl 50 Mg Tablet 50 Mg PO Q6HRS PRN Renvela (Sevelamer Carbonate) 800 Mg Tablet 800 Mg PO TIDWMEALS Humalog (Insulin Lispro) 100 Unit/1 Ml Cartridge 0-100 Unit SQ TIDAC Hydralazine Hcl 50 Mg Tablet 50 Mg PO BID Lipitor (Atorvastatin Calcium) 20 Mg Tablet 20 Mg PO HS Aspirin 81 Mg Tab.chew 81 Mg PO DAILY Synthroid (Levothyroxine Sodium) 75 Mcg Tablet 75 Mcg PO DAILYAC Nephro-Manuel Tablet (Folic Acid/Vitamin B Comp W-C) 0.8 Mg Tablet 0.8 Mg PO DAILY Lasix (Furosemide) 40 Mg Tablet 40 Mg PO DAILY Vitals/I & O Vital Sign - Last 24 Hours 08/02/18 08/02/18 08/02/18 08/02/18 09:54 11:00 11:00 16:46 Temp 98.3 98.3 Pulse 72 Resp 20 B/P (MAP) 174/66 (102) Pulse Ox 99 98 98 95 O2 Delivery Room Air Room Air Room Air Room Air 08/02/18 08/02/18 08/02/18 08/02/18 18:01 19:00 20:57 21:43 Temp 98.3 98.3 Pulse 72 71 71 Resp 20 B/P (MAP) 174/66 142/65 (90) 142/65 Pulse Ox 96 97 O2 Delivery Room Air Room Air 08/02/18 08/03/18 08/03/18 08/03/18 23:00 03:53 05:10 06:28 Temp 97.4 98.3 97.4 98.3 Pulse 68 67 Resp 20 20 20 20 B/P (MAP) 152/58 (89) 158/65 (96) Pulse Ox 95 99 O2 Delivery Room Air Room Air Room Air 08/03/18 07:00 Temp 98.0 98.0 Pulse 64 Resp 18 B/P (MAP) 160/73 (102) Pulse Ox 95 O2 Delivery Room Air Intake and Output 08/02/18 08/02/18 08/03/18 14:59 22:59 06:59 Intake Total 360 ml 180 ml Output Total 0 ml Balance 360 ml 180 ml 0 ml NIKKI ROMERO MD Aug 03, 2018 09:57
--- NOTE | 2018-08-03 11:30 | PDOC ---
Renal-Progress Notes Subjective Notes Notes NONE History of Present Illness Hx of present illness STABLE Vitals Vitals Vital Signs Date Time Temp Pulse Resp B/P (MAP) Pulse Ox O2 Delivery O2 Flow Rate FiO2 08/03/18 08:00 Room Air 08/03/18 07:00 98.0 64 18 160/73 (102) 95 98.0 Weight Weight [ ] I.O. Intake and Output Intake and Output 08/03/18 06:59 Intake Total 540 ml Output Total 0 ml Balance 540 ml Intake Oral 540 ml Output Urine Total 0 ml # Voids 3 Labs Labs Laboratory Tests Test 08/02/18 14:22 08/02/18 16:45 08/02/18 20:23 08/03/18 05:03 Hepatitis B Surface Antigen Nonreactive (Nonreactive) Glucose (Fingerstick) 168 mg/dL (70-99) 296 mg/dL (70-99) 161 mg/dL (70-99) Test 08/03/18 07:27 Glucose (Fingerstick) 138 mg/dL (70-99) Review of Systems Constitutional: yes: alert, oriented Ears/Nose/Throat: Yes: no symptom reported Eyes: Yes: no symptom reported Pulmonary: Yes dyspnea Cardiovascular: Yes no symptom reported Gastrointestional: Yes: no symptom reported Genitourinary: Yes: no symptom reported Musculoskeletal: Yes: no symptom reported Skin: Yes no symptom reported Psychiatric/Neurological: Yes: no symptom reported Endocrine: Yes: no symptom reported Physical Exam General Appearance: no apparent distress Respiratory: bilateral CTA Heart: S1S2 Abdomen: soft, bowel sounds present Genitourinary: bladder flat Extremities: pulses present Neurology: alert Assessment Assessment IMP CHF-SUSPECT ACUTE ON CHRONIC DIASTOLIC ORTHOPNEA-BETTER DM II HTN ANEMIA ESRD-TTS PLAN CARDIOLOGY EVALUATION HD TODAY UF TODAY 2.0-2.5 LITERS TOLERATED JUDITH WHEN NEEDED WILL FOLLOW JAVID BLANCHARD MD Aug 03, 2018 11:30
[2018-08-03] MEDS ORDERED: THROMBIN TOPICAL 20,000 UNIT SPRAY.SYRN KIT TP ONE (13:00)
[2018-08-03] MEDS: FUROSEMIDE 40 MG TABLET. PO SCH (13:10)
[2018-08-03] MEDS: SERTRALINE 25 MG TABLET. PO SCH (13:10)
[2018-08-03] MEDS: FOLIC/VIT B COMP W-C (RENAL) TABLET. PO SCH (13:10)
[2018-08-03] MEDS: FLUTICASONE 50MCG/NASAL SPRAY 16GM BOTTLE. NS SCH (13:11)
[2018-08-03 15:00] VITALS: BP 132/54
[2018-08-03 19:00] VITALS: BP 138/45
[2018-08-03] MEDS: ATORVASTATIN CALCIUM 20 MG TABLET PO SCH (21:26)
[2018-08-03] MEDS: INSULIN GLARGINE 300 UNITS/3 ML INSULN.PEN. SQ SCH (21:33)
[2018-08-03 22:35] VITALS: BP 132/49
[2018-08-04 03:00] VITALS: BP 138/52
[2018-08-04] MEDS: LEVOTHYROXINE 75 MCG TABLET PO SCH (06:15)
[2018-08-04 07:00] VITALS: BP 162/77
[2018-08-04] MEDS: SUCRALFATE 1 GM TABLET. PO SCH ×3 (07:25→17:13)
[2018-08-04] MEDS: PANTOPRAZOLE 40 MG TABLET.DR. PO SCH ×2 (07:25→17:13)
[2018-08-04] MEDS: SEVELAMER CARBONATE 800 MG TABLET. PO SCH ×3 (08:00→16:16)
[2018-08-04] MEDS: INSULIN LISPRO 300 UNITS/3 ML INSULN.PEN. SQ SCH ×3 (08:00→17:20)
[2018-08-04] MEDS: FOLIC/VIT B COMP W-C (RENAL) TABLET. PO SCH (08:40)
[2018-08-04] MEDS: ASPIRIN CHEWABLE 81 MG TABLET. PO SCH (08:40)
[2018-08-04] MEDS: FLUTICASONE 50MCG/NASAL SPRAY 16GM BOTTLE. NS SCH (08:40)
[2018-08-04] MEDS: FUROSEMIDE 40 MG TABLET. PO SCH (08:40)
[2018-08-04] MEDS: SERTRALINE 25 MG TABLET. PO SCH (08:40)
[2018-08-04] MEDS: CARVEDILOL 6.25 MG TABLET. PO SCH ×2 (08:41→17:14)
--- NOTE | 2018-08-04 08:45 | PDOC ---
PULMONARY PROGRESS NOTES Subjective sob better, still has cough, no pain Vitals Vital Signs Date Time Temp Pulse Resp B/P (MAP) Pulse Ox O2 Delivery O2 Flow Rate FiO2 08/04/18 08:41 68 162/77 08/04/18 07:36 Room Air 08/04/18 07:00 97.8 19 95 97.8 ROS: No Nausea, No Chest Pain General: Alert, No acute distress Lungs: Crackles, Other Cardiovascular: S1, S2 Abdomen: Soft, Non-tender Neuro Exam: Alert Extremities: No Edema Skin: Warm Labs Laboratory Tests Test 08/02/18 09:10 08/02/18 09:47 08/02/18 11:07 08/02/18 14:22 White Blood Count 6.5 x10^3/uL (4.0-11.0) Red Blood Count 3.48 x10^6/uL (3.50-5.40) Hemoglobin 11.5 g/dL (12.0-15.5) Hematocrit 36.2 % (36.0-47.0) Mean Corpuscular Volume 104 fL (79-100) Mean Corpuscular Hemoglobin 33 pg (25-35) Mean Corpuscular Hemoglobin Concent 32 g/dL (31-37) Red Cell Distribution Width 18.1 % (11.5-14.5) Platelet Count 159 x10^3/uL (140-400) Neutrophils (%) (Auto) 70 % (31-73) Lymphocytes (%) (Auto) 9 % (24-48) Monocytes (%) (Auto) 19 % (0-9) Eosinophils (%) (Auto) 2 % (0-3) Basophils (%) (Auto) 0 % (0-3) Neutrophils # (Auto) 4.5 x10^3uL (1.8-7.7) Lymphocytes # (Auto) 0.6 x10^3/uL (1.0-4.8) Monocytes # (Auto) 1.2 x10^3/uL (0.0-1.1) Eosinophils # (Auto) 0.1 x10^3/uL (0.0-0.7) Basophils # (Auto) 0.0 x10^3/uL (0.0-0.2) Segmented Neutrophils % 78 % (35-66) Band Neutrophils % 2 % (0-9) Lymphocytes % 9 % (24-48) Monocytes % 9 % (0-10) Eosinophils % 2 % (0-5) Nucleated Red Blood Cells 1 Platelet Estimate Adequate (ADEQUATE) Sodium Level 139 mmol/L (136-145) Potassium Level 4.3 mmol/L (3.5-5.1) Chloride Level 102 mmol/L (98-107) Carbon Dioxide Level 24 mmol/L (21-32) Anion Gap 13 (6-14) Blood Urea Nitrogen 30 mg/dL (7-20) Creatinine 4.3 mg/dL (0.6-1.0) Estimated GFR (Cockcroft-Gault) 11.9 Glucose Level 249 mg/dL (70-99) Hemoglobin A1c 6.7 % (4.8-5.6) Calcium Level 8.5 mg/dL (8.5-10.1) Influenza Type A Antigen Negative (NEGATIVE) Influenza Type B Antigen Negative (NEGATIVE) Glucose (Fingerstick) 263 mg/dL (70-99) Hepatitis B Surface Antigen Nonreactive (Nonreactive) Test 08/02/18 16:45 08/02/18 20:23 08/03/18 05:03 08/03/18 07:27 Glucose (Fingerstick) 168 mg/dL (70-99) 296 mg/dL (70-99) 161 mg/dL (70-99) 138 mg/dL (70-99) Test 08/03/18 13:15 08/03/18 15:58 08/03/18 16:55 08/03/18 20:28 Glucose (Fingerstick) 67 mg/dL (70-99) 253 mg/dL (70-99) 292 mg/dL (70-99) 270 mg/dL (70-99) Test 08/04/18 07:42 Glucose (Fingerstick) 65 mg/dL (70-99) Laboratory Tests Test 08/03/18 13:15 08/03/18 15:58 08/03/18 16:55 08/03/18 20:28 Glucose (Fingerstick) 67 mg/dL (70-99) 253 mg/dL (70-99) 292 mg/dL (70-99) 270 mg/dL (70-99) Test 08/04/18 07:42 Glucose (Fingerstick) 65 mg/dL (70-99) Medications Active Scripts Medications Dose Route/Sig Max Daily Dose Days Date Category Tramadol Hcl 50 Mg Tablet 50 Mg PO Q6HRS PRN 08/01/18 Reported Renvela (Sevelamer Carbonate) 800 Mg Tablet 800 Mg PO TIDWMEALS 08/01/18 Reported Oxycodone-Acetaminophen 5-325 (Oxycodone Hcl/Acetaminophen) 1 Each Tablet 1 Tab PO PRN Q4HRS PRN 03/18/18 Rx Isosorbide Mononitrate Er (Isosorbide Mononitrate) 30 Mg Tab.er.24h 30 Mg PO DAILY 30 03/13/18 Rx Humalog (Insulin Lispro) 100 Unit/1 Ml Cartridge 0-100 Unit SQ TIDAC 03/11/18 Reported Proair Hfa Inhaler (Albuterol Sulfate) 8.5 Gm Hfa.aer.ad 1 Puff INH PRN Q6HRS PRN 30 02/04/18 Rx Trazodone Hcl 50 Mg Tablet 50 Mg PO PRN QHS PRN 30 02/04/18 Rx Hydralazine Hcl 50 Mg Tablet 50 Mg PO BID 02/01/18 Reported Carafate (Sucralfate) 1 Gm Tablet 1 Gm PO TIDAC 30 10/27/17 Rx Vitamin D2 (Ergocalciferol (Vitamin D2)) 50,000 Unit Capsule 50,000 Unit PO WEEKLY 30 10/27/17 Rx [Pantoprazole] 40 MG Tablet.dr 40 Mg PO BIDAC 30 10/27/17 Rx Lantus Solostar (Insulin Glargine,Hum.rec.anlog) 100 Unit/1 Ml Insuln.pen 5 Units SQ QHS 30 10/08/17 Rx Carvedilol (Carvedilol) 3.125 Mg Tablet 6.25 Mg PO BIDWMEALS 30 02/17/17 Rx Sertraline Hcl 25 Mg Tablet 25 Mg PO DAILY 30 12/03/15 Rx Lipitor (Atorvastatin Calcium) 20 Mg Tablet 20 Mg PO HS 04/06/14 Reported Aspirin 81 Mg Tab.chew 81 Mg PO DAILY 03/05/14 Reported Synthroid (Levothyroxine Sodium) 75 Mcg Tablet 75 Mcg PO DAILYAC 11/22/13 Reported Nephro-Manuel Tablet (Folic Acid/Vitamin B Comp W-C) 0.8 Mg Tablet 0.8 Mg PO DAILY 11/22/13 Reported Lasix (Furosemide) 40 Mg Tablet 40 Mg PO DAILY 11/22/13 Reported Impression . IMPRESSION: 1. Bronchospasm, likely related to congestive heart failure. 2. Abnormal chest x-ray consistent with mild congestive heart failure. 3. Severe cardiomyopathy with an ejection fraction of 25%-30% also has grade 3 diastolic dysfunction and moderate aortic regurgitation. She has severe pulmonary hypertension, which is secondary to her valvular heart disease and cardiac dysfunction. 4. No significant history of tobacco use. 5. allergic rhinitis Plan . RECOMMENDATIONS: 1. bronchodilators. ICS, flonase 2. Would recommend increase ultrafiltration with hemodialysis that should improve her bronchospasm more than bronchodilators. 3. Follow up chest x-ray . 4. P.r.n. oxygen. 5. We will follow along with you. ELISE Cannon pt, MD Aug 04, 2018 08:45
[2018-08-04] MEDS: IPRATRPIUM/ALBUTEROL 0.5/2.5MG 3 ML NEBU. NEB SCH ×4 (08:57→19:38)
[2018-08-04] MEDS: BUDESONIDE 0.5 MG/2 ML NEBU. NEB SCH ×2 (08:57→19:38)
[2018-08-04 10:49] VITALS: BP 144/59
--- NOTE | 2018-08-04 11:47 | PDOC ---
Renal-Progress Notes Subjective Notes Notes BETTER History of Present Illness Hx of present illness STABLE Vitals Vitals Vital Signs Date Time Temp Pulse Resp B/P (MAP) Pulse Ox O2 Delivery O2 Flow Rate FiO2 08/04/18 10:49 98.7 69 17 144/59 (87) 96 Room Air 98.7 Weight Weight [ ] I.O. Intake and Output Intake and Output 08/04/18 06:59 Output Total 0 ml Balance 0 ml Output Urine Total 0 ml Labs Labs Laboratory Tests Test 08/03/18 13:15 08/03/18 15:58 08/03/18 16:55 08/03/18 20:28 Glucose (Fingerstick) 67 mg/dL (70-99) 253 mg/dL (70-99) 292 mg/dL (70-99) 270 mg/dL (70-99) Test 08/04/18 07:42 08/04/18 11:42 Glucose (Fingerstick) 65 mg/dL (70-99) 208 mg/dL (70-99) Review of Systems Constitutional: yes: alert, oriented Ears/Nose/Throat: Yes: no symptom reported Eyes: Yes: no symptom reported Pulmonary: Yes dyspnea Cardiovascular: Yes no symptom reported Gastrointestional: Yes: no symptom reported Genitourinary: Yes: no symptom reported Musculoskeletal: Yes: no symptom reported Skin: Yes no symptom reported Psychiatric/Neurological: Yes: no symptom reported Endocrine: Yes: no symptom reported Physical Exam General Appearance: no apparent distress Respiratory: bilateral CTA Heart: S1S2 Abdomen: soft, bowel sounds present Genitourinary: bladder flat Extremities: pulses present Neurology: alert Assessment Assessment IMP CHF-SUSPECT ACUTE ON CHRONIC DIASTOLIC ORTHOPNEA-BETTER DM II HTN ANEMIA ESRD-TTS PLAN CARDIOLOGY EVALUATION HD TTS JUDITH WHEN NEEDED WILL FOLLOW JAVID BLANCHARD MD Aug 04, 2018 11:47
--- NOTE | 2018-08-04 14:37 | PDOC ---
PROGRESS NOTES Subjective Subjective Patient improved today after dialysis yesterday.. Patient still to weak for self care. 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 Labs Laboratory Tests Test 08/02/18 16:45 08/02/18 20:23 08/03/18 05:03 08/03/18 07:27 Glucose (Fingerstick) 168 mg/dL (70-99) 296 mg/dL (70-99) 161 mg/dL (70-99) 138 mg/dL (70-99) Test 08/03/18 13:15 08/03/18 15:58 08/03/18 16:55 08/03/18 20:28 Glucose (Fingerstick) 67 mg/dL (70-99) 253 mg/dL (70-99) 292 mg/dL (70-99) 270 mg/dL (70-99) Test 08/04/18 07:42 08/04/18 11:42 Glucose (Fingerstick) 65 mg/dL (70-99) 208 mg/dL (70-99) Laboratory Tests Test 08/03/18 15:58 08/03/18 16:55 08/03/18 20:28 08/04/18 07:42 Glucose (Fingerstick) 253 mg/dL (70-99) 292 mg/dL (70-99) 270 mg/dL (70-99) 65 mg/dL (70-99) Test 08/04/18 11:42 Glucose (Fingerstick) 208 mg/dL (70-99) Medications Current Medications Albuterol Sulfate (Ventolin Neb Soln) 2.5 mg PRN Q6HRS PRN INH SHORTNESS OF BREATH; Start 08/01/18 at 22:45 Aspirin (Children'S Aspirin) 81 mg DAILY PO Last administered on 08/04/18 08: 40; Start 08/02/18 at 09:00 Atorvastatin Calcium (Lipitor) 20 mg HS PO Last administered on 08/03/18 21:26 ; Start 08/01/18 at 23:00 Carvedilol (Coreg) 6.25 mg BIDWMEALS PO Last administered on 08/04/18 08:41; Start 08/02/18 at 08:00 Ergocalciferol (Vitamin D2) 50,000 unit WEEKLY PO ; Start 08/08/18 at 09:00 Vitamin B Complex/ Vitamin C (Johana-Manuel) 1 tab DAILY PO Last administered on 08:40; Start 08/02/18 at 09:00 Furosemide (Lasix) 40 mg DAILY PO Last administered on 08/04/18 08:40; Start 08/02/18 at 09:00 Insulin Glargine (Lantus) 5 units QHS SQ Last administered on 08/01/18 23:00; Start 08/01/18 at 23:00; Stop 08/02/18 at 11:16; Status DC Levothyroxine Sodium (Synthroid) 75 mcg DAILY06 PO Last administered on 06:15; Start 08/02/18 at 06:00 Oxycodone/ Acetaminophen (Percocet 5/325) 1 tab PRN Q4HRS PRN PO MODERATE- SEVERE PAIN Last administered on 08/03/18at 05:10; Start 08/01/18 at 22:45 Sevelamer Carbonate (Renvela) 800 mg TIDWMEALS PO ; Start 08/02/18 at 08:00 Tramadol HCl (Ultram) 50 mg PRN Q6HRS PRN PO MILD PAIN Last administered on 09:54; Start 08/01/18 at 22:45 Trazodone HCl (Desyrel) 50 mg PRN QHS PRN PO INSOMNIA 1ST CHOICE Last administered on 08/01/18 22:56; Start 08/01/18 at 22:45 Hydralazine HCl (Apresoline) 50 mg BID PO Last administered on 08/04/18at 08:40 ; Start 08/01/18 at 23:00 Sertraline HCl (Zoloft) 25 mg DAILY PO Last administered on 08/04/18at 08:40; Start 08/02/18 at 09:00 Sucralfate (Carafate) 1 gm TIDAC PO Last administered on 08/04/18at 11:40; Start 08/02/18 at 07:30 Pantoprazole Sodium (Protonix) 40 mg BIDAC PO Last administered on 08/04/18at 07 :25; Start 08/02/18 at 07:30 Sodium Chloride 1,000 ml @ 1,000 mls/hr Q1H PRN IV hypotension; Start 08/02/18 at 10:11; Stop 08/02/18 at 16:10; Status DC Sodium Chloride 1,000 ml @ 400 mls/hr Q2H30M PRN IV PATENCY; Start 08/02/18 at 10:11; Stop 08/02/18 at 22:10; Status DC Info (PHARMACY MONITORING -- do not chart) 1 each PRN DAILY PRN MC SEE COMMENTS ; Start 08/02/18 at 10:15; Status UNV Info (PHARMACY MONITORING -- do not chart) 1 each PRN DAILY PRN MC SEE COMMENTS ; Start 08/02/18 at 10:15; Stop 08/02/18 at 18:12; Status DC Sodium Chloride 1,000 ml @ 1,000 mls/hr Q1H PRN IV hypotension; Start 08/02/18 at 10:28; Stop 08/02/18 at 16:27; Status DC Sodium Chloride 1,000 ml @ 400 mls/hr Q2H30M PRN IV PATENCY; Start 08/02/18 at 10:28; Stop 08/02/18 at 22:27; Status DC Info (PHARMACY MONITORING -- do not chart) 1 each PRN DAILY PRN MC SEE COMMENTS ; Start 08/02/18 at 10:30; Status UNV Info (PHARMACY MONITORING -- do not chart) 1 each PRN DAILY PRN MC SEE COMMENTS ; Start 08/02/18 at 10:30; Stop 08/03/18 at 15:33; Status DC Albuterol Sulfate (Ventolin Neb Soln) 2.5 mg 1X ONCE NEB ; Start 08/02/18 at 10 :45; Stop 08/02/18 at 10:46; Status DC Insulin Glargine (Lantus) 10 units QHS SQ Last administered on 08/03/18at 21:33 ; Start 08/02/18 at 21:00 Insulin Human Lispro (HumaLOG) 0-5 UNITS TIDWMEALS SQ Last administered on 08/04at 11:45; Start 08/02/18 at 12:00 Dextrose (Dextrose 50%-Water Syringe) 12.5 gm PRN Q15MIN PRN IV SEE COMMENTS; Start 08/02/18 at 11:15 Albuterol/ Ipratropium (Duoneb) 3 ml RTQID NEB Last administered on 08/04/18at 11:53; Start 08/02/18 at 16:00 Sodium Chloride 1,000 ml @ 1,000 mls/hr Q1H PRN IV hypotension; Start 08/03/18 at 06:35; Stop 08/03/18 at 12:34; Status DC Albumin Human 200 ml @ 200 mls/hr 1X PRN PRN IV Hypotension; Start 08/03/18 at 06:45; Stop 08/03/18 at 12:44; Status DC Acetaminophen (Tylenol) 500 mg 1X PRN PRN PO MILD PAIN / TEMP; Start 08/03/18 at 06:45; Stop 08/04/18 at 06:44; Status DC Diphenhydramine HCl (Benadryl) 25 mg 1X PRN PRN IV ITCHING; Start 08/03/18 at 06:45; Stop 08/04/18 at 06:44; Status DC Diphenhydramine HCl (Benadryl) 25 mg 1X PRN PRN IV ITCHING; Start 08/03/18 at 06:45; Stop 08/04/18 at 06:44; Status DC Sodium Chloride 1,000 ml @ 400 mls/hr Q2H30M PRN IV PATENCY; Start 08/03/18 at 06:35; Stop 08/03/18 at 18:34; Status DC Info (PHARMACY MONITORING -- do not chart) 1 each PRN DAILY PRN MC SEE COMMENTS ; Start 08/03/18 at 06:45 Fluticasone Propionate (Flonase) 2 spray DAILY NS Last administered on at 08:40; Start 08/03/18 at 09:00 Budesonide (Pulmicort) 0.5 mg RTBID NEB Last administered on 08/04/18at 08:57; Start 08/03/18 at 09:00 Thrombin 20,000 unit 1X ONCE TP ; Start 08/03/18 at 13:00; Stop 08/03/18 at 13: 01; Status DC Active Scripts Active Oxycodone-Acetaminophen 5-325 (Oxycodone Hcl/Acetaminophen) 1 Each Tablet 1 Tab PO PRN Q4HRS PRN Isosorbide Mononitrate Er (Isosorbide Mononitrate) 30 Mg Tab.er.24h 30 Mg PO DAILY 30 Days Proair Hfa Inhaler (Albuterol Sulfate) 8.5 Gm Hfa.aer.ad 1 Puff INH PRN Q6HRS PRN 30 Days Trazodone Hcl 50 Mg Tablet 50 Mg PO PRN QHS PRN 30 Days Carafate (Sucralfate) 1 Gm Tablet 1 Gm PO TIDAC 30 Days Vitamin D2 (Ergocalciferol (Vitamin D2)) 50,000 Unit Capsule 50,000 Unit PO WEEKLY 30 Days [Pantoprazole] 40 MG Tablet.dr 40 Mg PO BIDAC 30 Days Lantus Solostar (Insulin Glargine,Hum.rec.anlog) 100 Unit/1 Ml Insuln.pen 5 Units SQ QHS 30 Days Carvedilol (Carvedilol) 3.125 Mg Tablet 6.25 Mg PO BIDWMEALS 30 Days Sertraline Hcl 25 Mg Tablet 25 Mg PO DAILY 30 Days Reported Tramadol Hcl 50 Mg Tablet 50 Mg PO Q6HRS PRN Renvela (Sevelamer Carbonate) 800 Mg Tablet 800 Mg PO TIDWMEALS Humalog (Insulin Lispro) 100 Unit/1 Ml Cartridge 0-100 Unit SQ TIDAC Hydralazine Hcl 50 Mg Tablet 50 Mg PO BID Lipitor (Atorvastatin Calcium) 20 Mg Tablet 20 Mg PO HS Aspirin 81 Mg Tab.chew 81 Mg PO DAILY Synthroid (Levothyroxine Sodium) 75 Mcg Tablet 75 Mcg PO DAILYAC Nephro-Manuel Tablet (Folic Acid/Vitamin B Comp W-C) 0.8 Mg Tablet 0.8 Mg PO DAILY Lasix (Furosemide) 40 Mg Tablet 40 Mg PO DAILY Vitals/I & O Vital Sign - Last 24 Hours 08/03/18 08/03/18 08/03/18 08/03/18 15:00 15:48 17:11 19:00 Temp 98.1 98.7 98.1 98.7 Pulse 71 71 65 Resp 18 17 B/P (MAP) 132/54 (80) 132/54 138/45 (76) Pulse Ox 91 96 96 O2 Delivery Room Air Room Air Room Air 08/03/18 08/03/18 08/03/18 08/03/18 19:52 19:53 20:15 21:26 Pulse 65 B/P (MAP) 138/45 Pulse Ox 98 98 O2 Delivery Room Air Room Air Room Air 08/03/18 08/04/18 08/04/18 08/04/18 22:35 03:00 07:00 07:36 Temp 98.6 98.1 97.8 98.6 98.1 97.8 Pulse 69 67 68 Resp 19 B/P (MAP) 132/49 (76) 138/52 (80) 162/77 (105) Pulse Ox 96 97 95 O2 Delivery Room Air Room Air Room Air 08/04/18 08/04/18 08/04/18 08/04/18 08:40 08:41 08:57 10:49 Temp 98.7 98.7 Pulse 68 68 69 Resp 17 B/P (MAP) 162/77 162/77 144/59 (87) Pulse Ox 97 96 O2 Delivery Room Air Room Air 08/04/18 11:53 O2 Delivery Room Air Intake and Output 08/03/18 08/03/18 08/04/18 15:00 23:00 07:00 Output Total 0 ml Balance 0 ml NIKKI ROMERO MD Aug 04, 2018 14:37
[2018-08-04 14:57] VITALS: BP 135/50
[2018-08-04 19:00] VITALS: BP 144/57
[2018-08-04] MEDS: INSULIN GLARGINE 300 UNITS/3 ML INSULN.PEN. SQ SCH (21:22)
[2018-08-04] MEDS: ATORVASTATIN CALCIUM 20 MG TABLET PO SCH (21:22)
[2018-08-04 23:00] VITALS: BP 159/63
[2018-08-05 03:00] VITALS: BP 165/57
[2018-08-05] MEDS: LEVOTHYROXINE 75 MCG TABLET PO SCH (05:28)
[2018-08-05 07:00] VITALS: BP 117/66
[2018-08-05] MEDS: BUDESONIDE 0.5 MG/2 ML NEBU. NEB SCH (07:45)
[2018-08-05] MEDS: IPRATRPIUM/ALBUTEROL 0.5/2.5MG 3 ML NEBU. NEB SCH ×2 (07:45→11:46)
[2018-08-05] MEDS: PANTOPRAZOLE 40 MG TABLET.DR. PO SCH (09:19)
[2018-08-05] MEDS: FOLIC/VIT B COMP W-C (RENAL) TABLET. PO SCH (09:19)
[2018-08-05] MEDS: SEVELAMER CARBONATE 800 MG TABLET. PO SCH ×2 (09:19→12:00)
[2018-08-05] MEDS: SUCRALFATE 1 GM TABLET. PO SCH ×2 (09:20→11:30)
[2018-08-05] MEDS: SERTRALINE 25 MG TABLET. PO SCH (09:20)
[2018-08-05] MEDS: FUROSEMIDE 40 MG TABLET. PO SCH (09:20)
[2018-08-05] MEDS: ASPIRIN CHEWABLE 81 MG TABLET. PO SCH (09:20)
[2018-08-05] MEDS: CARVEDILOL 6.25 MG TABLET. PO SCH (09:20)
[2018-08-05] MEDS: FLUTICASONE 50MCG/NASAL SPRAY 16GM BOTTLE. NS SCH (09:21)
[2018-08-05] MEDS: INSULIN LISPRO 300 UNITS/3 ML INSULN.PEN. SQ SCH ×2 (09:29→13:42)
--- NOTE | 2018-08-05 09:30 | RAD ---
PROCEDURE: CHEST AP ONLY CLINICAL INDICATION: cough COMPARISON: 08/01/2018 FINDINGS: Stable position of cardiac pacer with its leads ejecting over the heart. Heart is mildly enlarged in size. Mild diffuse interstitial opacities are seen. No focal consolidation. No pneumothorax or pleural effusion. Visualized bony thorax is within normal limits. IMPRESSION: Mild cardiomegaly with stable interstitial opacities which may be from atypical/viral infection. Electronically signed by: Chris Collazo DO (08/05/2018 9:27 AM) [facility]
--- NOTE | 2018-08-05 09:50 | NUR ---
SW following pt. PT/OT recommends SNU. Spoke with pt about SNU options and pt chose [facility]. SW phoned and faxed referral to [facility]. Pt acceptance and admission pending. Aimme will come in to visit pt. SW will continue to follow.
[2018-08-05 11:00] VITALS: BP 120/68
--- NOTE | 2018-08-05 11:11 | PDOC ---
PULMONARY PROGRESS NOTES Subjective sob better, still has cough, no pain Vitals Vital Signs Date Time Temp Pulse Resp B/P (MAP) Pulse Ox O2 Delivery O2 Flow Rate FiO2 08/05/18 09:21 72 117/66 08/05/18 07:47 97 Room Air 08/05/18 07:00 98.4 18 98.4 ROS: No Nausea, No Chest Pain General: Alert, No acute distress Lungs: Wheezing (improved) Cardiovascular: S1, S2 Abdomen: Soft, Non-tender Neuro Exam: Alert Extremities: No Edema Skin: Warm Labs Laboratory Tests Test 08/03/18 13:15 08/03/18 15:58 08/03/18 16:55 08/03/18 20:28 Glucose (Fingerstick) 67 mg/dL (70-99) 253 mg/dL (70-99) 292 mg/dL (70-99) 270 mg/dL (70-99) Test 08/04/18 07:42 08/04/18 11:42 08/04/18 16:16 08/04/18 20:37 Glucose (Fingerstick) 65 mg/dL (70-99) 208 mg/dL (70-99) 219 mg/dL (70-99) 242 mg/dL (70-99) Test 08/05/18 05:30 08/05/18 08:14 08/05/18 09:00 Glucose (Fingerstick) 160 mg/dL (70-99) 178 mg/dL (70-99) 212 mg/dL (70-99) Laboratory Tests Test 08/04/18 11:42 08/04/18 16:16 08/04/18 20:37 08/05/18 05:30 Glucose (Fingerstick) 208 mg/dL (70-99) 219 mg/dL (70-99) 242 mg/dL (70-99) 160 mg/dL (70-99) Test 08/05/18 08:14 08/05/18 09:00 Glucose (Fingerstick) 178 mg/dL (70-99) 212 mg/dL (70-99) Medications Active Scripts Medications Dose Route/Sig Max Daily Dose Days Date Category Tramadol Hcl 50 Mg Tablet 50 Mg PO Q6HRS PRN 08/01/18 Reported Renvela (Sevelamer Carbonate) 800 Mg Tablet 800 Mg PO TIDWMEALS 08/01/18 Reported Oxycodone-Acetaminophen 5-325 (Oxycodone Hcl/Acetaminophen) 1 Each Tablet 1 Tab PO PRN Q4HRS PRN 03/18/18 Rx Isosorbide Mononitrate Er (Isosorbide Mononitrate) 30 Mg Tab.er.24h 30 Mg PO DAILY 30 03/13/18 Rx Humalog (Insulin Lispro) 100 Unit/1 Ml Cartridge 0-100 Unit SQ TIDAC 03/11/18 Reported Proair Hfa Inhaler (Albuterol Sulfate) 8.5 Gm Hfa.aer.ad 1 Puff INH PRN Q6HRS PRN 30 02/04/18 Rx Trazodone Hcl 50 Mg Tablet 50 Mg PO PRN QHS PRN 30 02/04/18 Rx Hydralazine Hcl 50 Mg Tablet 50 Mg PO BID 02/01/18 Reported Carafate (Sucralfate) 1 Gm Tablet 1 Gm PO TIDAC 30 10/27/17 Rx Vitamin D2 (Ergocalciferol (Vitamin D2)) 50,000 Unit Capsule 50,000 Unit PO WEEKLY 30 10/27/17 Rx [Pantoprazole] 40 MG Tablet.dr 40 Mg PO BIDAC 10/27/17 Rx Lantus Solostar (Insulin Glargine,Hum.rec.anlog) 100 Unit/1 Ml Insuln.pen 5 Units SQ QHS 30 10/08/17 Rx Carvedilol (Carvedilol) 3.125 Mg Tablet 6.25 Mg PO BIDWMEALS 30 02/17/17 Rx Sertraline Hcl 25 Mg Tablet 25 Mg PO DAILY 30 12/03/15 Rx Lipitor (Atorvastatin Calcium) 20 Mg Tablet 20 Mg PO HS 04/06/14 Reported Aspirin 81 Mg Tab.chew 81 Mg PO DAILY 03/05/14 Reported Synthroid (Levothyroxine Sodium) 75 Mcg Tablet 75 Mcg PO DAILYAC 11/22/13 Reported Nephro-Manuel Tablet (Folic Acid/Vitamin B Comp W-C) 0.8 Mg Tablet 0.8 Mg PO DAILY 11/22/13 Reported Lasix (Furosemide) 40 Mg Tablet 40 Mg PO DAILY 11/22/13 Reported Impression . IMPRESSION: 1. Bronchospasm, likely related to congestive heart failure. 2. Abnormal chest x-ray consistent with mild congestive heart failure. 3. Severe cardiomyopathy with an ejection fraction of 25%-30% also has grade 3 diastolic dysfunction and moderate aortic regurgitation. She has severe pulmonary hypertension, which is secondary to her valvular heart disease and cardiac dysfunction. 4. No significant history of tobacco use. 5. allergic rhinitis Plan . RECOMMENDATIONS: 1. bronchodilators. ICS, flonase 2. Would recommend increase ultrafiltration with hemodialysis 3. Follow up chest x-ray as needed 4. P.r.n. oxygen. 5. We will follow along with you. mare w BEE Moody MD Aug 05, 2018 11:11
[2018-08-05] MEDS ORDERED: BUDE0.5A NEB (11:41)
[2018-08-05] MEDS ORDERED: FLUT16SP NS (11:41)
[2018-08-05] MEDS ORDERED: INSU100I13 SQ (11:41)
[2018-08-05] MEDS ORDERED: IPRA3AMP29 NEB (11:41)
--- NOTE | 2018-08-05 11:43 | SNU/HH DC ---
DISCHARGE ORDERS DISCHARGE INFORMATION: DISCHARGE DATE: Aug 05, 2018 FINAL DIAGNOSIS (1) acute on chronic systolic and diastolic CHF exacerbation CONDITION ON DISCHARGE: Stable CODE STATUS: Code Status: Full HALF-WAY: SNF STAY <30 DAYS: Yes POST DISCHARGE ORDERS: ACTIVITY ORDERS: Activity as tolerated WEIGHT BEARING STATUS: Full weight bearing DIET AFTER DISCHARGE: Renal WOUND/INCISION CARE: Other, see below CHECKS AFTER DISCHARGE: CHECKS AFTER DISCHARGE: Check blood press - daily, Check blood sugar, ac/hs FOLLOW-UP: PHYSICIAN FOLLOW-UP: Dr. friend 1-2 weeks after SNU discharge TREATMENT/EQUIPMENT ORDERS: ADAPTIVE EQUIPMENT NEEDED: Walker RESPIRATORY EQUIPMENT NEEDED: Oxygen Physical Therapy For: Evalulation/Treatment Occupational Therapy For: Evaluation/Treatment DISCHARGE MEDICATIONS: Home Meds Active Scripts Oxycodone Hcl/Acetaminophen (OXYCODONE-ACETAMINOPHEN 5-325) 1 Each Tablet, 1 TAB PO PRN Q4HRS PRN for MILD PAIN, 1ST CHOICE, #30 TAB Prov:JAMEL VALENZUELA MD 03/18/18 Isosorbide Mononitrate (ISOSORBIDE MONONITRATE ER) 30 Mg Tab.er.24h, 30 MG PO DAILY for 30 Days, #30 TAB.SR Prov:VEDA SPRING CARE SUPPORT REPRESENTATIVE 03/13/18 Albuterol Sulfate (PROAIR HFA INHALER) 8.5 Gm Hfa.aer.ad, 1 PUFF INH PRN Q6HRS PRN for SHORTNESS OF BREATH for 30 Days, INHALER 0 Refills Prov:MARYCHUY SINGH MD 02/04/18 Trazodone Hcl (TRAZODONE HCL) 50 Mg Tablet, 50 MG PO PRN QHS PRN for INSOMNIA for 30 Days, TAB 4 Refills Prov:MARYCHUY SINGH MD 02/04/18 Sucralfate (CARAFATE) 1 Gm Tablet, 1 GM PO TIDAC for 30 Days, #90 TAB Prov:MALCOM HAWKINS MD 10/27/17 Ergocalciferol (Vitamin D2) (VITAMIN D2) 50,000 Unit Capsule, 54901 UNIT PO WEEKLY for 30 Days, #3 CAP Prov:MALCOM HAWKINS MD 10/27/17 [Pantoprazole] 40 MG [address]T.DR Milligan Conflict Check, 40 MG PO BIDAC for 30 Days Prov:MALOCM HAWKINS MD 10/27/17 Insulin Glargine,Hum.rec.anlog (LANTUS SOLOSTAR) 100 Unit/1 Ml Insuln.pen, 5 UNITS SQ QHS for 30 Days, #1 EACH Prov:BRENDA PABON MD 10/08/17 Carvedilol (CARVEDILOL ) 3.125 Mg Tablet, 6.25 MG PO BIDWMEALS for 30 Days, # 120 TAB 6 Refills Prov:BRENDA PABON MD 02/17/17 Sertraline Hcl (SERTRALINE HCL) 25 Mg Tablet, 25 MG PO DAILY for 30 Days, TAB 6 Refills Prov:BRENDA PABON MD 12/03/15 Reported Medications Tramadol Hcl (TRAMADOL HCL) 50 Mg Tablet, 50 MG PO Q6HRS PRN for PAIN, TAB 08/01/18 Sevelamer Carbonate (RENVELA) 800 Mg Tablet, 800 MG PO TIDWMEALS for dialysis, TAB 08/01/18 Insulin Lispro (HUMALOG) 100 Unit/1 Ml Cartridge, 0-100 UNIT SQ TIDAC, EACH 03/11/18 Hydralazine Hcl (HYDRALAZINE HCL) 50 Mg Tablet, 50 MG PO BID, TAB 02/01/18 Atorvastatin Calcium (LIPITOR) 20 Mg Tablet, 20 MG PO HS for FOR CHOLESTEROL, # 30 TAB 0 Refills 04/06/14 Aspirin (ASPIRIN) 81 Mg Tab.chew, 81 MG PO DAILY, TAB.CHEW 03/05/14 Levothyroxine Sodium (SYNTHROID) 75 Mcg Tablet, 75 MCG PO DAILYAC for THYROID SUPPLEMENT, #30 TAB 0 Refills 11/22/13 Folic Acid/Vitamin B Comp W-C (NEPHRO-GEETA TABLET) 0.8 Mg Tablet, 0.8 MG PO DAILY 11/22/13 Furosemide (LASIX) 40 Mg Tablet, 40 MG PO DAILY, TAB 11/22/13 Kecia MALAVE MD Aug 05, 2018 11:43
--- NOTE | 2018-08-05 12:52 | NUR ---
SW following pt. Pt has been accepted at [facility] and Orders faxed to [facility]. Pt will transport via facility w/c van between [id number]. Pt's choice and rights forms signed by pt and copies placed on chart. Pt reported she will notify her family. Packet on chart. RN notified.
--- NOTE | 2018-08-05 13:09 | PDOC3 ---
Discharge Summary [facility] Date of Admission: Aug 01, 2018 Discharge Date: Aug 05, 2018 Admitting Diagnosis CHF, acute on chronic diastolic, systolic Final Diagnosis (1) CHF exacerbation Acute on chronic diastolic, systolic CONSULTS Eloy Bone Nair Procedures hemodialysis Brief Hospital Course Ms. 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 She required additional dialysis, she was also seen by pulm as she was wheezing and placed on nebulized steroids and breathing treatments. She has improved but is in need of SNU for PT/OT and conditioning and agreeable to transfer to [facility] SNF CONDITION AT DISCHARGE: Improved Scheduled Aspirin (Aspirin), 81 MG PO DAILY, (Reported) Atorvastatin Calcium (Lipitor), 20 MG PO HS, (Reported) Budesonide (Budesonide), 0.5 MG NEB RTBID Carvedilol (Carvedilol ), 6.25 MG PO BIDWMEALS Ergocalciferol (Vitamin D2) (Vitamin D2), 50,000 UNIT PO WEEKLY Fluticasone Propionate (Fluticasone Propionate Nasal [place]), 2 SPRAY NS DAILY Folic Acid/Vitamin B Comp W-C (Nephro-Manuel Tablet), 0.8 MG PO DAILY, (Reported) Furosemide (Lasix), 40 MG PO DAILY, (Reported) Hydralazine Hcl (Hydralazine Hcl), 50 MG PO BID, (Reported) Insulin Glargine,Hum.rec.anlog (Lantus Solostar), 10 UNITS SQ QHS Insulin Lispro (Humalog), 0-100 UNIT SQ TIDAC, (Reported) Ipratropium/Albuterol Sulfate (Duoneb 0.5-3(2.5) Mg/3 Ml), 3 ML NEB RTQID Isosorbide Mononitrate (Isosorbide Mononitrate Er), 30 MG PO DAILY Levothyroxine Sodium (Synthroid), 75 MCG PO DAILYAC, (Reported) Sertraline Hcl (Sertraline Hcl), 25 MG PO DAILY Sevelamer Carbonate (Renvela), 800 MG PO TIDWMEALS, (Reported) Sucralfate (Carafate), 1 GM PO TIDAC [Pantoprazole], 40 MG PO BIDAC Scheduled PRN Trazodone Hcl (Trazodone Hcl), 50 MG PO PRN QHS PRN for INSOMNIA Discontinued Medications Albuterol Sulfate (Proair Hfa Inhaler), 1 PUFF INH PRN Q6HRS PRN for SHORTNESS OF BREATH Insulin Glargine,Hum.rec.anlog (Lantus Solostar), 5 UNITS SQ QHS Oxycodone Hcl/Acetaminophen (Oxycodone-Acetaminophen 5-325), 1 TAB PO PRN Q4HRS PRN for MILD PAIN, 1ST CHOICE Tramadol Hcl (Tramadol Hcl), 50 MG PO Q6HRS PRN for PAIN, (Reported) Follow Up Dr. friend 1-2 weeks after SNF discharge Kecia MALAVE MD Aug 05, 2018 13:09
[2018-08-05] MEDS: traMADol 50 MG TABLET PO PRN (14:10)
--- NOTE | 2018-08-05 14:50 | NUR ---
Patient discharged for transfer to [facility]. Report given to Juliet LAWRENCE per phone. Copy of chart, and all belongings in room sent with patient.
[2018-08-08] MEDS ORDERED: ERGOCALCIFEROL (VITAMIN D2) 50,000 UNIT CAPSULE. PO SCH (09:00)
== END 2018-08-05 14:46 | DRG 291 ==
LOC: ER 16:31 → 5 NORTH 21:00
PROVIDERS: ADMIT Family Medicine; ATTEND Family Medicine
PROC: 5A1D70Z Performance of Urinary Filtration, Intermittent, Less than 6 Hours Per Day (ICD-10-PCS; principal; 2018-08-02)
PROC: 5A1D70Z Performance of Urinary Filtration, Intermittent, Less than 6 Hours Per Day (ICD-10-PCS; 2018-08-03)
DX: I13.2 Hypertensive heart and chronic kidney disease with heart failure and with stage 5 chronic kidney disease, or end stage renal disease (principal); I50.43 Acute on chronic combined systolic (congestive) and diastolic (congestive) heart failure; J96.00 Acute respiratory failure, unspecified whether with hypoxia or hypercapnia; N18.6 End stage renal disease; E11.22 Type 2 diabetes mellitus with diabetic chronic kidney disease; E11.65 Type 2 diabetes mellitus with hyperglycemia; K21.9 Gastro-esophageal reflux disease without esophagitis; I25.10 Atherosclerotic heart disease of native coronary artery without angina pectoris; I25.5 Ischemic cardiomyopathy; J20.9 Acute bronchitis, unspecified; E78.5 Hyperlipidemia, unspecified; D64.9 Anemia, unspecified; I35.1 Nonrheumatic aortic (valve) insufficiency; I27.29 Other secondary pulmonary hypertension; J30.9 Allergic rhinitis, unspecified; E89.0 Postprocedural hypothyroidism; Z86.73 Personal history of transient ischemic attack (TIA), and cerebral infarction without residual deficits; Z85.3 Personal history of malignant neoplasm of breast; Z90.710 Acquired absence of both cervix and uterus; Z95.810 Presence of automatic (implantable) cardiac defibrillator; Z90.49 Acquired absence of other specified parts of digestive tract; Z90.13 Acquired absence of bilateral breasts and nipples; Z99.2 Dependence on renal dialysis; Z88.5 Allergy status to narcotic agent; Z91.048 Other nonmedicinal substance allergy status; Z83.3 Family history of diabetes mellitus; Z79.4 Long term (current) use of insulin; Z95.5 Presence of coronary angioplasty implant and graft
CPT/HCPCS: 36415; 71045; 71250; 80048; 80053; 82962; 83036; 83880; 84484; 85007; 85025; 87340; 87804; 93005; 93306; 94640; 94760; J1815; J7620; J7626; 97535; 99285-25

== ENCOUNTER 2018-08-13 11:22 | Emergency (ER) | payer MEDICARE, OTHER ==
[~2018-08-13] VITALS: Ht 154.9 cm; Wt 66.7 kg
[~2018-08-13 11:22] MED LIST changes: +BUDE0.5A NEB; +FLUT16SP NS; +IPRA3AMP29 NEB
--- NOTE | 2018-08-13 12:25 | PHYS DOC ---
Past Medical History Past Medical History: Cancer, CHF, CVA, Diabetes-Type II, GERD, Hypertension, Hypothyroid, Renal Failure, TIA, Additional Disease, Other Additional Past Medical Histor: Breast CA Past Surgical History: Cancer Surgery, Cholecystectomy, Hysterectomy, Pacemaker , Other Additional Past Surgical Histo: Graft RUE; bilateral mastectomy; thyroidectomy ; hernia Alcohol Use: None Drug Use: None Adult General Chief Complaint Chief Complaint: DIALYSIS PROBLEM HPI HPI 83-year-old dialysis patient presents after a full dialysis treatment secondary to the fact that they were unable to get her fistula to stop bleeding. They placed a clamp on the fistula and sent her here for evaluation. Patient was seen and evaluated the clamp was left in place for approximately one hour after her arrival. Had no complaints. She's not had any pain. She states at dialysis treatment was otherwise normal[] Review of Systems Review of Systems Constitutional: Denies fever or chills [] Eyes: Denies change in visual acuity, redness, or eye pain [] HENT: Denies nasal congestion or sore throat [] Respiratory: Denies cough or shortness of breath [] Cardiovascular: No additional information not addressed in HPI [] GI: Denies abdominal pain, nausea, vomiting, bloody stools or diarrhea [] : Denies dysuria or hematuria [] Musculoskeletal: Denies back pain or joint pain [] Integument: Bleeding fistula[] Neurologic: Denies headache, focal weakness or sensory changes [] Endocrine: Denies polyuria or polydipsia [] All other systems were reviewed and found to be within normal limits, except as documented in this note. Allergies Allergies Allergies Coded Allergies Type Severity Reaction Last Updated Verified adhesive tape Allergy Intermediate PAPER TAPE 09/27/17 Yes morphine Allergy Mild Itching 03/15/18 Yes Physical Exam Physical Exam Constitutional: Well developed, well nourished, no acute distress, non-toxic appearance. [] HENT: Normocephalic, atraumatic, bilateral external ears normal, oropharynx moist, no oral exudates, nose normal. [] Eyes: PERRLA, EOMI, conjunctiva normal, no discharge. [] Neck: Normal range of motion, no tenderness, supple, no stridor. [] Cardiovascular:Heart rate regular rhythm, no murmur, AV fistula has a good thrill right upper extremity [] Lungs & Thorax: Bilateral breath sounds clear to auscultation [] Abdomen: Bowel sounds normal, soft, no tenderness, no masses, no pulsatile masses. [] Skin: Warm, dry, no erythema, no rash. [] Back: No tenderness, no CVA tenderness. [] Extremities: Right upper extremity AV fistula had a clamp in place the clamp was removed and there was no further bleeding. [] Neurologic: Alert and oriented X 3, normal motor function, normal sensory function, no focal deficits noted. [] Psychologic: Affect normal, judgement normal, mood normal. [] Current Patient Data Vital Signs Vital Signs Date Time Temp Pulse Resp B/P (MAP) Pulse Ox O2 Delivery O2 Flow Rate FiO2 08/13/18 12:07 97.9 120/68 (85) 97.9 EKG EKG [] Radiology/Procedures Radiology/Procedures [] Course & Med Decision Making Course & Med Decision Making Pertinent Labs and Imaging studies reviewed. (See chart for details) [] Dragon Disclaimer Dragon Disclaimer This electronic medical record was generated, in whole or in part, using a voice recognition dictation system. Departure Departure Impression: Primary Impression: Hemorrhage of surgically-created arteriovenous fistula Disposition: 01 HOME, SELF-CARE Condition: STABLE Referrals: CHAPARRITA CALDERON MD (PCP) Patient Instructions: AV Fistula, Care After, Puncture Wound Additional Instructions: Follow with her primary care physician as directed. Return to the emergency department with any new or concerning symptoms Problem Qualifiers Primary Impression: Hemorrhage of surgically-created arteriovenous fistula Encounter type: initial encounter Qualified Codes: T82.838A - Hemorrhage due to vascular prosthetic devices, implants and grafts, initial encounter BRIANNA CEBALLOS DO Aug 13, 2018 12:25
[2018-08-13] MEDS ORDERED: SURGICEL HEMOSTAT 4X8 EACH. TP ONE (12:45)
[2018-08-13 14:05] VITALS: BP 182/81
== END 2018-08-13 14:07 | disposition home or self-care (01) ==
LOC: ER 11:22
DX: T82.838A Hemorrhage due to vascular prosthetic devices, implants and grafts, initial encounter (principal); I11.0 Hypertensive heart disease with heart failure; I50.9 Heart failure, unspecified; K21.9 Gastro-esophageal reflux disease without esophagitis; E11.9 Type 2 diabetes mellitus without complications; Z86.73 Personal history of transient ischemic attack (TIA), and cerebral infarction without residual deficits; Z90.49 Acquired absence of other specified parts of digestive tract; Z90.710 Acquired absence of both cervix and uterus; Z95.0 Presence of cardiac pacemaker; Z90.13 Acquired absence of bilateral breasts and nipples; E89.0 Postprocedural hypothyroidism; Z88.5 Allergy status to narcotic agent; Z88.8 Allergy status to other drugs, medicaments and biological substances
CPT/HCPCS: 99284

== ENCOUNTER 2018-08-22 10:59 | Inpatient (IN) | payer MEDICARE, OTHER ==
[~2018-08-22] VITALS: Ht 160 cm; Wt 66.7 kg
[2018-08-22 12:24] LABS: BASO % 0 % (0-3); EOS # 0.1 x10^3/uL (0.0-0.7); EOS % 1 % (0-3); HEMATOCRIT 39.2 % (36.0-47.0); HEMOGLOBIN 12.5 g/dL (12.0-15.5); LYMPH # 0.4 x10^3/uL (1.0-4.8); LYMPH % 6 % (24-48); MEAN CORPUSCULAR HEMOGLOBIN 33 pg (25-35); MEAN CORPUSCULAR HGB CONC 32 g/dL (31-37); MEAN CORPUSCULAR VOLUME 104 fL (79-100); MONO # 1.1 x10^3/uL (0.0-1.1); MONO % 19 % (0-9); NEUT # 4.4 x10^3uL (1.8-7.7); NEUT % 74 % (31-73); PLATELET COUNT 182 x10^3/uL (140-400); RED BLOOD COUNT 3.76 x10^6/uL (3.50-5.40); RED CELL DISTRIBUTION WIDTH 16.8 % (11.5-14.5)
[2018-08-22 12:39] LABS: PROTHROMBIN TIME PATIENT 14.2 SEC (11.7-14.0)
[2018-08-22 12:40] LABS: CALCIUM 8.7 mg/dL (8.5-10.1); CREATININE 3.2 mg/dL (0.6-1.0); GFR 16.7; POTASSIUM 3.6 mmol/L (3.5-5.1)
[2018-08-22 13:00] LABS: % BANDS 2 % (0-9); % EOS 1 % (0-5); % LYMPHS 13 % (24-48); % MONOS 6 % (0-10); % SEGS 78 % (35-66)
[2018-08-22 13:04] LABS: ANISOCYTOSIS SLIGHT; PLT ESTIMATE ADEQUATE (ADEQUATE)
--- NOTE | 2018-08-22 13:50 | PHYS DOC ---
Past Medical History Past Medical History: Cancer, CHF, CVA, Diabetes-Type II, GERD, Hypertension, Hypothyroid, Renal Failure, TIA, Additional Disease, Other Additional Past Medical Histor: Breast CA Past Surgical History: Cancer Surgery, Cholecystectomy, Hysterectomy, Pacemaker , Other Additional Past Surgical Histo: Graft RUE; bilateral mastectomy; thyroidectomy ; hernia Alcohol Use: None Drug Use: None Adult General Chief Complaint Chief Complaint: OTHER COMPLAINTS HPI HPI Patient is a 83 year old female with history of chronic renal failure on hemodialysis brought in by EMS because of uncontrolled bleeding from the AV fistula of right upper extremity dialysis site. Patient finished her dialysis but they staff of [facility] was not able to stop the bleeding from the site of AV fistula access. Patient had the same problem was seen in the emergency room last week with applying Surgicel to bleeding but applied a Surgicel. Patient does not have any active bleeding at arrival to ER. Patient denies any pain. Review of Systems Review of Systems Constitutional: Denies fever or chills [] Eyes: Denies change in visual acuity, redness, or eye pain [] HENT: Denies nasal congestion or sore throat [] Respiratory: Denies cough or shortness of breath [] Cardiovascular: No additional information not addressed in HPI [] GI: Denies abdominal pain, nausea, vomiting, bloody stools or diarrhea [] : Denies dysuria or hematuria [] Musculoskeletal: Denies back pain or joint pain [] Integument: Denies rash or skin lesions [] Neurologic: Denies headache, focal weakness or sensory changes [] Endocrine: Denies polyuria or polydipsia [] All other systems were reviewed and found to be within normal limits, except as documented in this note. Allergies Allergies Allergies Coded Allergies Type Severity Reaction Last Updated Verified adhesive tape Allergy Intermediate PAPER TAPE 09/27/17 Yes morphine Allergy Mild Itching 03/15/18 Yes Physical Exam Physical Exam Constitutional: Well developed, mild distress, non-toxic appearance. [] HENT: Normocephalic, atraumatic Eyes: PERRLA, EOMI, conjunctiva normal, no discharge. [] Neck: Normal range of motion, no tenderness, supple, no stridor. [] Cardiovascular:Heart rate regular rhythm, no murmur [] Lungs & Thorax: Bilateral breath sounds clear to auscultation [] Skin: Warm, dry, no erythema, no rash. [] Back: No tenderness, no CVA tenderness. [] Extremities: No tenderness, no cyanosis, no clubbing, ROM intact, right upper extremity AV fistula with dressing in place without active bleeding with good thrill. Neurologic: Patient is somnolent but arousable, oriented, normal motor function , normal sensory function, no focal deficits noted. [] Current Patient Data Vital Signs Vital Signs Date Time Temp Pulse Resp B/P (MAP) Pulse Ox O2 Delivery O2 Flow Rate FiO2 08/22/18 11:05 98.2 75 18 143/59 (87) 98 Room Air 98.2 Lab Values Laboratory Tests Test 08/22/18 11:55 White Blood Count 6.0 x10^3/uL (4.0-11.0) Red Blood Count 3.76 x10^6/uL (3.50-5.40) Hemoglobin 12.5 g/dL (12.0-15.5) Hematocrit 39.2 % (36.0-47.0) Mean Corpuscular Volume 104 fL (79-100) H Mean Corpuscular Hemoglobin 33 pg (25-35) Mean Corpuscular Hemoglobin Concent 32 g/dL (31-37) Red Cell Distribution Width 16.8 % (11.5-14.5) H Platelet Count 182 x10^3/uL (140-400) Neutrophils (%) (Auto) 74 % (31-73) H Lymphocytes (%) (Auto) 6 % (24-48) L Monocytes (%) (Auto) 19 % (0-9) H Eosinophils (%) (Auto) 1 % (0-3) Basophils (%) (Auto) 0 % (0-3) Neutrophils # (Auto) 4.4 x10^3uL (1.8-7.7) Lymphocytes # (Auto) 0.4 x10^3/uL (1.0-4.8) L Monocytes # (Auto) 1.1 x10^3/uL (0.0-1.1) Eosinophils # (Auto) 0.1 x10^3/uL (0.0-0.7) Basophils # (Auto) 0.0 x10^3/uL (0.0-0.2) Segmented Neutrophils % 78 % (35-66) H Band Neutrophils % 2 % (0-9) Lymphocytes % 13 % (24-48) L Monocytes % 6 % (0-10) Eosinophils % 1 % (0-5) Platelet Estimate Adequate (ADEQUATE) Anisocytosis Slight Prothrombin Time 14.2 SEC (11.7-14.0) H Prothrombin Time INR 1.1 (0.8-1.1) PTT 34 SEC (24-38) Sodium Level 139 mmol/L (136-145) Potassium Level 3.6 mmol/L (3.5-5.1) Chloride Level 102 mmol/L (98-107) Carbon Dioxide Level 24 mmol/L (21-32) Anion Gap 13 (6-14) Blood Urea Nitrogen 17 mg/dL (7-20) Creatinine 3.2 mg/dL (0.6-1.0) H Estimated GFR (Cockcroft-Gault) 16.7 Glucose Level 150 mg/dL (70-99) H Calcium Level 8.7 mg/dL (8.5-10.1) Laboratory Tests 08/22/18 11:55 Laboratory Tests 08/22/18 11:55 EKG EKG [] Radiology/Procedures Radiology/Procedures [] Course & Med Decision Making Course & Med Decision Making Pertinent Labs reviewed. (See chart for details) Evaluation of patient in ER showed 83-year-old female patient with history of chronic heart failure on dialysis brought in because of uncontrolled bleeding from dialysis site that was stopped at arrival to ER. Patient had unremarkable labs except for chronic renal failure. Patient is was informed to come to pick her up but she told the nurse that she feels uncomfortable to take her home because of possible fall and requesting hospitalization for social admission for rehabilitation placement. The patient and her niece informed about plan of admission for possible rehabilitation or halfway placement. Dragon Disclaimer Dragon Disclaimer This electronic medical record was generated, in whole or in part, using a voice recognition dictation system. Departure Departure Impression: Primary Impression: Hemorrhage of surgically-created arteriovenous fistula Additional Impressions: ESRD on dialysis Generalized weakness Disposition: 09 ADMITTED INPATIENT (at 1420) Admitting Physician: Chaparrita Calderon (At 1431) Condition: IMPROVED Referrals: CHAPARRITA CALDERON MD (PCP) Problem Qualifiers Primary Impression: Hemorrhage of surgically-created arteriovenous fistula Encounter type: initial encounter Qualified Codes: T82.838A - Hemorrhage due to vascular prosthetic devices, implants and grafts, initial encounter PAMELLA TAYLOR MD Aug 22, 2018 13:50
[2018-08-22 19:00] VITALS: BP 146/53
[2018-08-22] MEDS ORDERED: INSU100I13 SQ (21:37)
[2018-08-22] MEDS ORDERED: TRAM50TA PO (21:38)
[2018-08-22] MEDS ORDERED: ACETAMINOPHEN 325 MG TABLET. PO PRN (22:00)
[2018-08-22] MEDS ORDERED: traZODone 50 MG TABLET. PO PRN (22:15)
[2018-08-22] MEDS: ATORVASTATIN CALCIUM 20 MG TABLET PO SCH (22:34)
[2018-08-22 23:00] VITALS: BP 130/71
[2018-08-23 03:00] VITALS: BP 123/69
[2018-08-23 07:00] VITALS: BP 163/66
[2018-08-23] MEDS ORDERED: DEXTROSE 50% 25 GM / 50ML DISP.SYRIN. IV PRN (07:30)
--- NOTE | 2018-08-23 07:34 | PDOC1 ---
History and Physical Date of Admission Date of Admission 08/22/18 Identification/Chief Complaint Chief Complaint Bleeding from fistula Source Source: Patient History of Present Illness History of Present Illness Pt states that she had bleeding from her fistula yesterday at HD that was difficult to control. She says that during HD she was shaking and spilling her water; she does not remember much of what happened during HD. In addition to this pt was recently seen in clinic. She was accompanied by her niece. Family is concerned because of increase in functional decline and they did not feel that they were able to continue caring for her at home. Labs were ordered to see if anything could explain this decline. Blood cultures are still pending but so far workup was essentially normal. Past Medical History Cardiovascular: CAD, CHF, HTN, Hyperlipidemia, Other Pulmonary: Pulmonary embolus, Other CENTRAL NERVOUS SYSTEM: Dementia, TIA GI: GERD Heme/Onc: Anemia NOS, Cancer Hepatobiliary: No pertinent hx Psych: No pertinent hx Rheumatologic: No pertinent hx Infectious disease: No pertinent hx ENT: No pertinent hx Renal/: Chronic renal failure Endocrine: Diabetes, Hyperparathyroidism Dermatology: No pertinent hx Past Surgical History Past Surgical History: Appendectomy, Cholecystectomy, Cataract Removal, Mastectomy, Hysterectomy, Other Family History Family History: Diabetes, Heart Disease Social History Smoke: No ALCOHOL: none Drugs: None Current Problem List Problem List Problems Medical Problems: (1) Hemorrhage of surgically-created arteriovenous fistula Status: Acute Current Medications Current Medications Current Medications Medications (Trade) Dose Ordered Sig/Sahil Start Time Stop Time Status Last Admin Dose Admin Acetaminophen (Tylenol) 650 mg PRN Q6HRS PRN 08/22/18 22:00 Atorvastatin Calcium (Lipitor) 20 mg HS 08/22/18 22:30 08/22/18 22:34 20 MG Hydralazine HCl (Apresoline) 50 mg BID 08/22/18 22:30 08/22/18 22:35 50 MG Insulin Glargine (Lantus) 6 units BIDWMEALS 08/23/18 08:00 Trazodone HCl (Desyrel) 50 mg PRN QHS PRN 08/22/18 22:15 Allergies Allergies Allergies Coded Allergies Type Severity Reaction Last Updated Verified adhesive tape Allergy Intermediate PAPER TAPE 09/27/17 Yes morphine Allergy Mild Itching 03/15/18 Yes ROS Review of System CONSTITUTIONAL: No fever, always cold EYES: No recent changes SKIN: No rash or itching CARDIOVASCULAR: No chest pain, syncope, palpitations, or edema RESPIRATORY: No SOB or cough GASTROINTESTINAL: No nausea, vomiting or abdominal pain NEUROLOGICAL: No headaches or weakness ENDOCRINE: No cold or heat intolerance GENITOURINARY: No urgency or frequency of urination MUSCULOSKELETAL: No back pain or joint pain LYMPHATICS: No enlarged lymph nodes PSYCHIATRIC: No anxiety or depression Physical Exam Physical Exam GEN.: No apparent distress. Falls asleep just while sitting, arousable HEENT: Head is normocephalic, atraumatic NECK: Supple. LUNGS: upper airway noises appreciated on right HEART: RRR, S1, S2 present. Peripheral pulses intact ABDOMEN: Soft, nontender. Positive bowel sounds. EXTREMITIES: Without any cyanosis. NEUROLOGIC: Normal speech, normal tone PSYCHIATRIC: Normal affect, normal mood. SKIN: No ulcerations Vitals Vitals Vital Signs Date Time Temp Pulse Resp B/P (MAP) Pulse Ox O2 Delivery O2 Flow Rate FiO2 08/23/18 03:00 97.9 70 17 123/69 (87) 97 Room Air 97.9 Labs Labs Laboratory Tests Test 08/22/18 11:55 White Blood Count 6.0 x10^3/uL (4.0-11.0) Red Blood Count 3.76 x10^6/uL (3.50-5.40) Hemoglobin 12.5 g/dL (12.0-15.5) Hematocrit 39.2 % (36.0-47.0) Mean Corpuscular Volume 104 fL (79-100) Mean Corpuscular Hemoglobin 33 pg (25-35) Mean Corpuscular Hemoglobin Concent 32 g/dL (31-37) Red Cell Distribution Width 16.8 % (11.5-14.5) Platelet Count 182 x10^3/uL (140-400) Neutrophils (%) (Auto) 74 % (31-73) Lymphocytes (%) (Auto) 6 % (24-48) Monocytes (%) (Auto) 19 % (0-9) Eosinophils (%) (Auto) 1 % (0-3) Basophils (%) (Auto) 0 % (0-3) Neutrophils # (Auto) 4.4 x10^3uL (1.8-7.7) Lymphocytes # (Auto) 0.4 x10^3/uL (1.0-4.8) Monocytes # (Auto) 1.1 x10^3/uL (0.0-1.1) Eosinophils # (Auto) 0.1 x10^3/uL (0.0-0.7) Basophils # (Auto) 0.0 x10^3/uL (0.0-0.2) Segmented Neutrophils % 78 % (35-66) Band Neutrophils % 2 % (0-9) Lymphocytes % 13 % (24-48) Monocytes % 6 % (0-10) Eosinophils % 1 % (0-5) Platelet Estimate Adequate (ADEQUATE) Anisocytosis Slight Prothrombin Time 14.2 SEC (11.7-14.0) Prothromb Time International Ratio 1.1 (0.8-1.1) Activated Partial Thromboplast Time 34 SEC (24-38) Sodium Level 139 mmol/L (136-145) Potassium Level 3.6 mmol/L (3.5-5.1) Chloride Level 102 mmol/L (98-107) Carbon Dioxide Level 24 mmol/L (21-32) Anion Gap 13 (6-14) Blood Urea Nitrogen 17 mg/dL (7-20) Creatinine 3.2 mg/dL (0.6-1.0) Estimated GFR (Cockcroft-Gault) 16.7 Glucose Level 150 mg/dL (70-99) Calcium Level 8.7 mg/dL (8.5-10.1) Laboratory Tests Test 08/22/18 11:55 White Blood Count 6.0 x10^3/uL (4.0-11.0) Red Blood Count 3.76 x10^6/uL (3.50-5.40) Hemoglobin 12.5 g/dL (12.0-15.5) Hematocrit 39.2 % (36.0-47.0) Mean Corpuscular Volume 104 fL (79-100) Mean Corpuscular Hemoglobin 33 pg (25-35) Mean Corpuscular Hemoglobin Concent 32 g/dL (31-37) Red Cell Distribution Width 16.8 % (11.5-14.5) Platelet Count 182 x10^3/uL (140-400) Neutrophils (%) (Auto) 74 % (31-73) Lymphocytes (%) (Auto) 6 % (24-48) Monocytes (%) (Auto) 19 % (0-9) Eosinophils (%) (Auto) 1 % (0-3) Basophils (%) (Auto) 0 % (0-3) Neutrophils # (Auto) 4.4 x10^3uL (1.8-7.7) Lymphocytes # (Auto) 0.4 x10^3/uL (1.0-4.8) Monocytes # (Auto) 1.1 x10^3/uL (0.0-1.1) Eosinophils # (Auto) 0.1 x10^3/uL (0.0-0.7) Basophils # (Auto) 0.0 x10^3/uL (0.0-0.2) Segmented Neutrophils % 78 % (35-66) Band Neutrophils % 2 % (0-9) Lymphocytes % 13 % (24-48) Monocytes % 6 % (0-10) Eosinophils % 1 % (0-5) Platelet Estimate Adequate (ADEQUATE) Anisocytosis Slight Prothrombin Time 14.2 SEC (11.7-14.0) Prothromb Time International Ratio 1.1 (0.8-1.1) Activated Partial Thromboplast Time 34 SEC (24-38) Sodium Level 139 mmol/L (136-145) Potassium Level 3.6 mmol/L (3.5-5.1) Chloride Level 102 mmol/L (98-107) Carbon Dioxide Level 24 mmol/L (21-32) Anion Gap 13 (6-14) Blood Urea Nitrogen 17 mg/dL (7-20) Creatinine 3.2 mg/dL (0.6-1.0) Estimated GFR (Cockcroft-Gault) 16.7 Glucose Level 150 mg/dL (70-99) Calcium Level 8.7 mg/dL (8.5-10.1) VTE Prophylaxis Ordered VTE Prophylaxis Devices: No VTE Pharmacological Prophylaxi: No Assessment/Plan Assessment/Plan Pt is a 83yo AAF admitted for Fistula bleeding and functional decline at home 1)AV Fistula bleeding- 2nd occurrence within 2 weeks. Hb stable 2)Functional/cognitive decline- outpatient workup has been normal. Discussed with family during last OV possible SNF vs permanent long term placement. PT /OT and SW consulted. 3)HTN- well controlled with home medications. Will continue Hydralazine 50mg TID, Carvedilol 6.25mg BID, Lasix 40mg qday 4)DM2- HbA1C pending. Lantus held for now and SSI available. Will CTM 5)Depression- pt continued on Sertraline 25mg qday 6)HLD- pt continued on Atorvastatin 25mg QHS 7)ESRD- Renal consulted, electrolytes stable 8)Hx breast ca 9)CHF- compensated, pt has ICD 10)ELIF- nocturnal O2 sat ordered given her increased daytime sleepiness 11)Hx of PE- no longer on anticoagulation 12)Hx CAD CHAPARRITA CALDERON MD Aug 23, 2018 07:34
[2018-08-23] MEDS: PANTOPRAZOLE 40 MG TABLET.DR. PO SCH (07:54)
[2018-08-23] MEDS: SUCRALFATE 1 GM TABLET. PO SCH ×4 (07:54→21:32)
[2018-08-23] MEDS: INSULIN GLARGINE 300 UNITS/3 ML INSULN.PEN. SQ SCH ×2 (08:22→17:00)
[2018-08-23] MEDS: INSULIN LISPRO 300 UNITS/3 ML INSULN.PEN. SQ SCH ×3 (08:22→17:00)
[2018-08-23] MEDS ORDERED: ERGOCALCIFEROL (VITAMIN D2) 50,000 UNIT CAPSULE. PO SCH (09:00)
[2018-08-23] MEDS: FUROSEMIDE 40 MG TABLET. PO SCH (09:34)
[2018-08-23] MEDS: FLUTICASONE 50MCG/NASAL SPRAY 16GM BOTTLE. NS SCH (09:34)
[2018-08-23] MEDS: ASPIRIN CHEWABLE 81 MG TABLET. PO SCH (09:34)
[2018-08-23] MEDS: FOLIC/VIT B COMP W-C (RENAL) TABLET. PO SCH (09:34)
[2018-08-23] MEDS: SERTRALINE 25 MG TABLET. PO SCH (09:34)
[2018-08-23] MEDS: CARVEDILOL 3.125 MG TABLET. PO SCH ×2 (09:42→16:33)
[2018-08-23 11:00] VITALS: BP 150/55
[2018-08-23] MEDS: LEVOTHYROXINE 75 MCG TABLET PO SCH (11:06)
--- NOTE | 2018-08-23 12:24 | NUR ---
SW consulted for dc needs. Chart reviewed. Pt is known to SW from previous admission and was discharged to SNF. Spoke with pt at bedside and she states she is interested in going to rehab at [facility]. SW discussed SNU vs LTC. Pt reports currently she is only considering SNU placement to help her with her strength. PT had worked with pt and recommendation is home with assistance. Pt wants to see if [facility] can accept her again and is declining LTC placement but agreeable with SNU. SW phoned and faxed referral to [facility]. Pt acceptance and admission pending. Will continue to follow.
--- NOTE | 2018-08-23 13:03 | NUR ---
MATEO following pt. Pt has been accepted at [facility] and facility will have a bed available upon dc. Aim[facility] reported they do not need three midnights to admit pt as pt has had three mid nights in the last 30 days. SW will wait for dc order and proceed accordingly. Discussed with RN.
[2018-08-23 15:00] VITALS: BP 160/68
--- NOTE | 2018-08-23 15:21 | PDOC2 ---
CONSULT Date of Consult Date of Consult DATE: 08/23/18 TIME: 15:15 Reason for Consult Reason for Consult: ESRD Source Source: Chart review, Patient History of Present Illness Reason for Visit: Pt is 83 yo AAF , ESRD on HD admitted with c/o bleeding from her fistula yesterday at HD that was difficult to control. She says that during HD she was shaking and spilling her water; she does not remember much of what happened during HD. As per PCP note Family is concerned because of increase in functional decline and they did not feel that they were able to continue caring for her at home. Pt denies any complaints . No CP, SOB, No N/V/D. No F/C Past Medical History Cardiovascular: CAD, CHF, HTN, Hyperlipidemia, Other Pulmonary: Pulmonary embolus, Other CENTRAL NERVOUS SYSTEM: Dementia, TIA GI: GERD Heme/Onc: Anemia NOS, Cancer Hepatobiliary: No pertinent hx Psych: No pertinent hx Rheumatologic: No pertinent hx Infectious disease: No pertinent hx ENT: No pertinent hx Renal/: Chronic renal failure Endocrine: Diabetes, Hyperparathyroidism Dermatology: No pertinent hx Past Surgical History Past Surgical History: Appendectomy, Cholecystectomy, Cataract Removal, Mastectomy, Hysterectomy, Other Family History Family History: Diabetes, Heart Disease Social History No ALCOHOL: none Drugs: None Lives: with Family Current Problem List Problem List Problems Medical Problems: (1) Hemorrhage of surgically-created arteriovenous fistula Status: Acute Current Medications Current Medications Current Medications Atorvastatin Calcium (Lipitor) 20 mg HS PO Last administered on 08/22/18at 22:34 ; Start 08/22/18 at 22:30 Insulin Glargine (Lantus) 6 units BIDWMEALS SQ Last administered on 08/23/18at 08 :22; Start 08/23/18 at 08:00 Trazodone HCl (Desyrel) 50 mg PRN QHS PRN PO INSOMNIA; Start 08/22/18 at 22:15 Hydralazine HCl (Apresoline) 50 mg BID PO Last administered on 08/22/18at 22:35; Start 08/22/18 at 22:30; Stop 08/23/18 at 07:32; Status DC Acetaminophen (Tylenol) 650 mg PRN Q6HRS PRN PO MODERATE PAIN; Start 08/22/18 at 22:00 Aspirin (Children'S Aspirin) 81 mg DAILY PO Last administered on 08/23/18 09:34 ; Start 08/23/18 at 09:00 Carvedilol (Coreg) 6.25 mg BIDWMEALS PO Last administered on 08/23/18 09:42; Start 08/23/18 at 08:00 Ergocalciferol (Vitamin D2) 50,000 unit WEEKLY PO ; Start 08/23/18 at 09:00; Stop 08/23/18 at 09:00; Status DC Fluticasone Propionate (Flonase) 2 spray DAILY NS Last administered on 09:34; Start 08/23/18 at 09:00 Vitamin B Complex/ Vitamin C (Johana-Manuel) 1 tab DAILY PO Last administered on 09:34; Start 08/23/18 at 09:00 Furosemide (Lasix) 40 mg DAILY PO Last administered on 08/23/18 09:34; Start at 09:00 Levothyroxine Sodium (Synthroid) 75 mcg DAILY06 PO Last administered on 11:06; Start 08/23/18 at 10:30 Sertraline HCl (Zoloft) 25 mg DAILY PO Last administered on 08/23/18 09:34; Start 08/23/18 at 09:00 Sucralfate (Carafate) 1 gm QIDACHS PO Last administered on 08/23/18 11:39; Start 08/23/18 at 07:30 Pantoprazole Sodium (Protonix) 40 mg DAILYAC PO Last administered on 08/23/18 07:54; Start 08/23/18 at 07:30 Hydralazine HCl (Apresoline) 50 mg TID PO Last administered on 08/23/18 14:29; Start 08/23/18 at 09:00 Levothyroxine Sodium (Synthroid) 75 mcg DAILY06 PO ; Start 08/24/18 at 06:00; Status UNV Insulin Human Lispro (HumaLOG) 0-5 UNITS TIDWMEALS SQ Last administered on 08:22; Start 08/23/18 at 08:00 Dextrose (Dextrose 50%-Water Syringe) 12.5 gm PRN Q15MIN PRN IV SEE COMMENTS; Start 08/23/18 at 07:30 Active Scripts Active Fluticasone Propionate Nasal [place] (Fluticasone Propionate) 16 Gm [place].susp 2 [place] NS DAILY 30 Days Trazodone Hcl 50 Mg Tablet 50 Mg PO PRN QHS PRN 30 Days Carafate (Sucralfate) 1 Gm Tablet 1 Gm PO TIDAC 30 Days Vitamin D2 (Ergocalciferol (Vitamin D2)) 50,000 Unit Capsule 50,000 Unit PO WEEKLY 30 Days [Pantoprazole] 40 MG Tablet.dr 40 Mg PO BIDAC 30 Days Carvedilol (Carvedilol) 3.125 Mg Tablet 6.25 Mg PO BIDWMEALS 30 Days Sertraline Hcl 25 Mg Tablet 25 Mg PO DAILY 30 Days Reported Tramadol Hcl 50 Mg Tablet 50 Mg PO Q6HRS PRN Lantus Solostar (Insulin Glargine,Hum.rec.anlog) 100 Unit/1 Ml Insuln.pen 6 Unit SQ BREAKFAST, HS Hydralazine Hcl 50 Mg Tablet 50 Mg PO BID Lipitor (Atorvastatin Calcium) 20 Mg Tablet 20 Mg PO HS Aspirin 81 Mg Tab.chew 81 Mg PO DAILY Synthroid (Levothyroxine Sodium) 75 Mcg Tablet 75 Mcg PO DAILYAC Nephro-Manuel Tablet (Folic Acid/Vitamin B Comp W-C) 0.8 Mg Tablet 0.8 Mg PO DAILY Lasix (Furosemide) 40 Mg Tablet 40 Mg PO DAILY Allergies Allergies: Coded Allergies: adhesive tape (Verified Allergy, Intermediate, PAPER TAPE, 09/27/17) morphine (Verified Allergy, Mild, Itching, 03/15/18) Received oxycodone 10/2017 with no documented adverse effects and received tramadol 11/2017 with no documented adverse effects ROS Review of System As per HPI Physical Exam Physical Exam GEN.: No apparent distress. HEENT: Head is normocephalic, atraumatic NECK: Supple. LUNGS: upper airway noises appreciated on right HEART: RRR, S1, S2 present. Peripheral pulses intact ABDOMEN: Soft, nontender. Positive bowel sounds. EXTREMITIES: Without any cyanosis. NEUROLOGIC: Normal speech, normal tone SKIN: No RASH Vital Signs Vital Signs Date Time Temp Pulse Resp B/P (MAP) Pulse Ox O2 Delivery O2 Flow Rate FiO2 08/23/18 14:29 77 150/55 08/23/18 11:00 98.5 18 99 Room Air 98.5 Assessment & Plan ESRD on HD TTS Last HD yesterday Currently no indication for HD AV Fistula bleeding- Hb stable Functional/cognitive decline- outpatient workup has been normal. HTN- well controlled with home medications. DM2- as per primary Depression- on Sertraline Hx breast ca CHF- compensated, pt has ICD ELIF- Hx of PE- no longer on anticoagulation Hx CAD Labs Labs Laboratory Tests Test 08/22/18 11:55 08/23/18 07:56 08/23/18 07:59 08/23/18 12:12 White Blood Count 6.0 x10^3/uL (4.0-11.0) Red Blood Count 3.76 x10^6/uL (3.50-5.40) Hemoglobin 12.5 g/dL (12.0-15.5) Hematocrit 39.2 % (36.0-47.0) Mean Corpuscular Volume 104 fL (79-100) Mean Corpuscular Hemoglobin 33 pg (25-35) Mean Corpuscular Hemoglobin Concent 32 g/dL (31-37) Red Cell Distribution Width 16.8 % (11.5-14.5) Platelet Count 182 x10^3/uL (140-400) Neutrophils (%) (Auto) 74 % (31-73) Lymphocytes (%) (Auto) 6 % (24-48) Monocytes (%) (Auto) 19 % (0-9) Eosinophils (%) (Auto) 1 % (0-3) Basophils (%) (Auto) 0 % (0-3) Neutrophils # (Auto) 4.4 x10^3uL (1.8-7.7) Lymphocytes # (Auto) 0.4 x10^3/uL (1.0-4.8) Monocytes # (Auto) 1.1 x10^3/uL (0.0-1.1) Eosinophils # (Auto) 0.1 x10^3/uL (0.0-0.7) Basophils # (Auto) 0.0 x10^3/uL (0.0-0.2) Segmented Neutrophils % 78 % (35-66) Band Neutrophils % 2 % (0-9) Lymphocytes % 13 % (24-48) Monocytes % 6 % (0-10) Eosinophils % 1 % (0-5) Platelet Estimate Adequate (ADEQUATE) Anisocytosis Slight Prothrombin Time 14.2 SEC (11.7-14.0) Prothromb Time International Ratio 1.1 (0.8-1.1) Activated Partial Thromboplast Time 34 SEC (24-38) Sodium Level 139 mmol/L (136-145) Potassium Level 3.6 mmol/L (3.5-5.1) Chloride Level 102 mmol/L (98-107) Carbon Dioxide Level 24 mmol/L (21-32) Anion Gap 13 (6-14) Blood Urea Nitrogen 17 mg/dL (7-20) Creatinine 3.2 mg/dL (0.6-1.0) Estimated GFR (Cockcroft-Gault) 16.7 Glucose Level 150 mg/dL (70-99) Calcium Level 8.7 mg/dL (8.5-10.1) Thyroid Stimulating Hormone (TSH) 4.986 uIU/mL (0.358-3.74) Glucose (Fingerstick) 200 mg/dL (70-99) 146 mg/dL (70-99) Laboratory Tests Test 08/23/18 07:56 08/23/18 07:59 08/23/18 12:12 Thyroid Stimulating Hormone (TSH) 4.986 uIU/mL (0.358-3.74) Glucose (Fingerstick) 200 mg/dL (70-99) 146 mg/dL (70-99) Review All relevant outside records, renal labs, imaging studies, telemetry/EKG's were reviewed. KRISTAL CHOI MD Aug 23, 2018 15:21
[2018-08-23] MEDS: CETIRIZINE HCL 10 MG TABLET. PO SCH (17:26)
[2018-08-23 19:00] VITALS: BP 125/47
[2018-08-23] MEDS: ATORVASTATIN CALCIUM 20 MG TABLET PO SCH (21:32)
[2018-08-23 22:10] LABS: HEMOGLOBIN A1C 6.6 % (4.8-5.6)
[2018-08-23 23:02] VITALS: BP 137/50
[2018-08-24 03:02] VITALS: BP 131/53
[2018-08-24 04:55] LABS: CALCIUM 8.4 mg/dL (8.5-10.1); CREATININE 5.4 mg/dL (0.6-1.0); GFR 9.2; POTASSIUM 3.9 mmol/L (3.5-5.1)
[2018-08-24] MEDS ORDERED: LEVOTHYROXINE 75 MCG TABLET PO SCH (06:00)
[2018-08-24] MEDS: LEVOTHYROXINE 75 MCG TABLET PO SCH (06:20)
[2018-08-24 07:00] VITALS: BP 158/70
[2018-08-24] MEDS: CARVEDILOL 3.125 MG TABLET. PO SCH (08:00)
[2018-08-24] MEDS: FLUTICASONE 50MCG/NASAL SPRAY 16GM BOTTLE. NS SCH (08:17)
[2018-08-24] MEDS: SUCRALFATE 1 GM TABLET. PO SCH ×2 (08:17→11:30)
[2018-08-24] MEDS: PANTOPRAZOLE 40 MG TABLET.DR. PO SCH (08:17)
[2018-08-24] MEDS: INSULIN LISPRO 300 UNITS/3 ML INSULN.PEN. SQ SCH ×2 (08:25→12:00)
[2018-08-24] MEDS: INSULIN GLARGINE 300 UNITS/3 ML INSULN.PEN. SQ SCH (08:26)
[2018-08-24] MEDS ORDERED: CETI10TA16 PO (08:50)
[2018-08-24] MEDS ORDERED: ACET325T9 PO (08:50)
[2018-08-24] MEDS ORDERED: 0.9 % SODIUM CHLORIDE 10 ML DISP.SYRIN. IV PRN ×2 (09:00)
[2018-08-24] MEDS ORDERED: IV NORMAL SALINE 1000ML BAG 1,000 ML IV PRN ×2 (09:00)
[2018-08-24] MEDS ORDERED: DIALYSIS PATIENT. MC PRN ×2 (09:00→09:15)
[2018-08-24] MEDS: ASPIRIN CHEWABLE 81 MG TABLET. PO SCH (09:00)
--- NOTE | 2018-08-24 09:54 | SNU/HH DC ---
DISCHARGE ORDERS DISCHARGE INFORMATION: FINAL DIAGNOSIS Problems Medical Problems: (1) Hemorrhage of surgically-created arteriovenous fistula Status: Acute CONDITION ON DISCHARGE: Stable CODE STATUS: Code Status: Full HALF-WAY: SNF STAY <30 DAYS: Yes POST DISCHARGE ORDERS: ACTIVITY ORDERS: Activity as tolerated WEIGHT BEARING STATUS: As tolerated DIET AFTER DISCHARGE: Renal WOUND/INCISION CARE: Other, see below CHECKS AFTER DISCHARGE: CHECKS AFTER DISCHARGE: Check blood press - daily, Check blood sugar, ac/hs TREATMENT/EQUIPMENT ORDERS: ADAPTIVE EQUIPMENT NEEDED: None RESPIRATORY EQUIPMENT NEEDED: Oxygen Physical Therapy For: Evalulation/Treatment Occupational Therapy For: Evaluation/Treatment DISCHARGE MEDICATIONS: Home Meds Active Scripts Acetaminophen (TYLENOL) 325 Mg Tablet, 650 MG PO PRN Q6HRS PRN for MODERATE PAIN for 30 Days, #60 TAB Prov:NIKKI ROMERO MD 08/24/18 Cetirizine Hcl (CETIRIZINE HCL) 10 Mg Tablet, 10 MG PO DAILY for allergies for 30 Days, #30 TAB Prov:NIKKI ROMERO MD 08/24/18 Fluticasone Propionate (FLUTICASONE PROPIONATE NASAL SPRAY) 16 Gm [place].susp, 2 SPRAY NS DAILY for nasal allergies for 30 Days, #1 SPRAY Prov:Kecia MALAVE MD 08/05/18 Trazodone Hcl (TRAZODONE HCL) 50 Mg Tablet, 50 MG PO PRN QHS PRN for INSOMNIA for 30 Days, TAB 4 Refills Prov:MARYCHUY SINGH MD 02/04/18 Sucralfate (CARAFATE) 1 Gm Tablet, 1 GM PO TIDAC for 30 Days, #90 TAB Prov:MALCOM HAWKINS MD 10/27/17 Ergocalciferol (Vitamin D2) (VITAMIN D2) 50,000 Unit Capsule, 42090 UNIT PO WEEKLY for 30 Days, #3 CAP Prov:MALCOM HAWKINS MD 10/27/17 [Pantoprazole] [address] Milligan Conflict Check, 40 MG PO BIDAC for 30 Days Prov:MALCOM HAWKINS MD 10/27/17 Carvedilol (CARVEDILOL ) 3.125 Mg Tablet, 6.25 MG PO BIDWMEALS for 30 Days, # 120 TAB 6 Refills Prov:BRENDA PABON MD 02/17/17 Sertraline Hcl (SERTRALINE HCL) 25 Mg Tablet, 25 MG PO DAILY for 30 Days, TAB 6 Refills Prov:BRENDA PABON MD 12/03/15 Reported Medications Tramadol Hcl (TRAMADOL HCL) 50 Mg Tablet, 50 MG PO Q6HRS PRN for PAIN, TAB 08/22/18 Insulin Glargine,Hum.rec.anlog (LANTUS SOLOSTAR) 100 Unit/1 Ml Insuln.pen, 6 UNIT SQ BREAKFAST, HS for BLOOD GLUCUSE, #15 ML 3 Refills 08/22/18 Hydralazine Hcl (HYDRALAZINE HCL) 50 Mg Tablet, 50 MG PO BID, TAB 02/01/18 Atorvastatin Calcium (LIPITOR) 20 Mg Tablet, 20 MG PO HS for FOR CHOLESTEROL, # 30 TAB 0 Refills 04/06/14 Aspirin (ASPIRIN) 81 Mg Tab.chew, 81 MG PO DAILY, TAB.CHEW 03/05/14 Levothyroxine Sodium (SYNTHROID) 75 Mcg Tablet, 75 MCG PO DAILYAC for THYROID SUPPLEMENT, #30 TAB 0 Refills 11/22/13 Folic Acid/Vitamin B Comp W-C (NEPHRO-GEETA TABLET) 0.8 Mg Tablet, 0.8 MG PO DAILY 11/22/13 Furosemide (LASIX) 40 Mg Tablet, 40 MG PO DAILY, TAB 11/22/13 Discontinued Scripts Isosorbide Mononitrate (ISOSORBIDE MONONITRATE ER) 30 Mg Tab.er.24h, 30 MG PO DAILY for 30 Days, #30 TAB.SR Prov:VEDA SPRING APRN 03/13/18 NIKKI ROMERO MD Aug 24, 2018 09:54
[2018-08-24] MEDS ORDERED: traZODone 50 MG TABLET. PO PRN (10:00)
[2018-08-24] MEDS: FUROSEMIDE 40 MG TABLET. PO SCH (14:07)
[2018-08-24] MEDS: CETIRIZINE HCL 10 MG TABLET. PO SCH (14:07)
[2018-08-24] MEDS: SERTRALINE 25 MG TABLET. PO SCH (14:07)
[2018-08-24] MEDS: FOLIC/VIT B COMP W-C (RENAL) TABLET. PO SCH (14:07)
--- NOTE | 2018-08-24 14:59 | NUR ---
Discharge Note: BRANT HALL Discharge instructions and discharge home medications reviewed with Patient and a copy given. All questions have been answered and understanding verbalized. The following instructions and handouts were given: Patient given education regarding generalized weakness. Discontinued lines and drains: Patient did not have an IV. Patient discharged to [facility], Report given to Sami LAWRENCE.
[2018-08-24 15:00] VITALS: BP 112/48
--- NOTE | 2018-08-24 16:38 | PDOC ---
SUBJECTIVE ROS Tolerated HD well OBJECTIVE Vital Signs Vital Signs Date Time Temp Pulse Resp B/P (MAP) Pulse Ox O2 Delivery O2 Flow Rate FiO2 08/24/18 15:00 98.1 60 16 112/48 (69) 94 Room Air 98.1 I & 0 Intake and Output 08/24/18 07:00 Intake Total 850 ml Output Total 0 ml Balance 850 ml Intake Oral 850 ml Output Urine Total 0 ml # Voids 5 # Bowel Movements 3 PHYSICAL EXAM Physical Exam GEN.: No apparent distress. HEENT: Head is normocephalic, atraumatic NECK: Supple. LUNGS: upper airway noises appreciated on right HEART: RRR, S1, S2 present. Peripheral pulses intact ABDOMEN: Soft, nontender. Positive bowel sounds. EXTREMITIES: Without any cyanosis. 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 HTN- well controlled with home medications. DM2- as per primary Depression- on Sertraline Hx breast ca CHF- compensated, pt has ICD ELIF- Hx of PE- no longer on anticoagulation Hx CAD COMMENT/RELEVANT DATA Meds Current Medications Medications (Trade) Dose Ordered Sig/Sahil Start Time Stop Time Status Last Admin Dose Admin Acetaminophen (Tylenol) 650 mg PRN Q6HRS PRN 08/22/18 22:00 08/24/18 15:48 DC 08/23/18 19:22 650 MG Aspirin (Children'S Aspirin) 81 mg DAILY 08/23/18 09:00 08/24/18 15:48 DC 08/23/18 09:34 81 MG Atorvastatin Calcium (Lipitor) 20 mg HS 08/22/18 22:30 08/24/18 15:48 DC 08/23/18 21:32 20 MG Carvedilol (Coreg) 6.25 mg BIDWMEALS 08/23/18 08:00 08/24/18 15:48 DC 08/23/18 16:33 6.25 MG Cetirizine HCl (ZyrTEC) 10 mg DAILY 08/23/18 17:00 08/24/18 15:48 DC 08/24/18 14:07 10 MG Dextrose (Dextrose 50%-Water Syringe) 12.5 gm PRN Q15MIN PRN 08/23/18 07:30 08/24/18 15:48 DC Ergocalciferol (Vitamin D2) 50,000 unit WEEKLY 08/23/18 09:00 08/23/18 09:00 DC Fluticasone Propionate (Flonase) 2 spray DAILY 08/23/18 09:00 08/24/18 15:48 DC 08/24/18 08:17 2 SPRAY Furosemide (Lasix) 40 mg DAILY 08/23/18 09:00 08/24/18 15:48 DC 08/24/18 14:07 40 MG Hydralazine HCl (Apresoline) 50 mg TID 08/23/18 09:00 08/24/18 15:48 DC 08/23/18 21:32 50 MG Info (PHARMACY MONITORING -- do not chart) 1 each PRN DAILY PRN 08/24/18 09:15 UNV Insulin Glargine (Lantus) 6 units BIDWMEALS 08/23/18 08:00 08/24/18 15:48 DC 08/24/18 08:26 6 UNITS Insulin Human Lispro (HumaLOG) 0-5 UNITS TIDWMEALS 08/23/18 08:00 08/24/18 15:48 DC 08/24/18 08:25 2 UNITS Levothyroxine Sodium (Synthroid) 75 mcg DAILY06 08/24/18 06:00 UNV Pantoprazole Sodium (Protonix) 40 mg DAILYAC 08/23/18 07:30 08/24/18 15:48 DC 08/24/18 08:17 40 MG Sertraline HCl (Zoloft) 25 mg DAILY 08/23/18 09:00 08/24/18 15:48 DC 08/24/18 14:07 25 MG Sodium Chloride 1,000 ml @ 400 mls/hr Q2H30M PRN 08/24/18 09:00 08/24/18 15:48 DC Sodium Chloride (Normal Saline Flush) 10 ml 1X PRN PRN 08/24/18 09:00 08/24/18 15:48 DC Sucralfate (Carafate) 1 gm QIDACHS 08/23/18 07:30 08/24/18 15:48 DC 08/24/18 08:17 1 GM Trazodone HCl (Desyrel) 50 mg PRN QHS PRN 08/24/18 10:00 UNV Vitamin B Complex/ Vitamin C (Johana-Manuel) 1 tab DAILY 08/23/18 09:00 08/24/18 15:48 DC 08/24/18 14:07 1 TAB Lab Laboratory Tests Test 08/23/18 16:47 08/23/18 20:22 08/24/18 03:30 08/24/18 07:48 Glucose (Fingerstick) 200 mg/dL (70-99) 249 mg/dL (70-99) 187 mg/dL (70-99) Sodium Level 136 mmol/L (136-145) Potassium Level 3.9 mmol/L (3.5-5.1) Chloride Level 99 mmol/L (98-107) Carbon Dioxide Level 23 mmol/L (21-32) Anion Gap 14 (6-14) Blood Urea Nitrogen 41 mg/dL (7-20) Creatinine 5.4 mg/dL (0.6-1.0) Estimated GFR (Cockcroft-Gault) 9.2 Glucose Level 256 mg/dL (70-99) Calcium Level 8.4 mg/dL (8.5-10.1) Test 08/24/18 14:04 Glucose (Fingerstick) 73 mg/dL (70-99) Results All relevant outside records, renal labs, imaging studies, telemetry/EKG's were reviewed. KRISTAL CHOI MD Aug 24, 2018 16:38
--- NOTE | 2018-08-24 19:45 | DS ---
DATE OF DISCHARGE: 08/24/2018 ADMITTING DIAGNOSIS: Arteriovenous fistula malfunction. SECONDARY DIAGNOSES: 1. Debilitation. 2. Cognitive impairment. 3. Hypertension. 4. Type 2 diabetes. 5. Major depression. 6. Hyperlipidemia. 7. End-stage renal disease. 8. Congestive heart failure with implantable cardioverter-defibrillator in place. 9. Obstructive sleep apnea. 10. History of pulmonary embolism, off anticoagulation at present. 11. History of coronary artery disease. 12. History of breast cancer. DISMISSAL DIAGNOSES: 1. Debilitation. 2. Cognitive impairment. 3. Hypertension. 4. Type 2 diabetes. 5. Major depression. 6. Hyperlipidemia. 7. End-stage renal disease. 8. Congestive heart failure with implantable cardioverter-defibrillator in place. 9. Obstructive sleep apnea. 10. History of pulmonary embolism, off anticoagulation at present. 11. History of coronary artery disease. 12. History of breast cancer. HISTORY OF PRESENT ILLNESS AND HOSPITAL COURSE: This patient was admitted with increasing weakness and inability for family to care for her. She also had bleeding from her fistula and required dialysis; therefore, she was admitted for further evaluation and dialysis and management of AV fistula. The patient stabilized but due to ongoing debilitation and recent hospitalization less than 30 days ago with a cough only 3-day hospital stay, she was sent to senior care for PT and OT evaluation and treatment and possible snf placement if not improved. The patient was stable at the time of discharge. DISCHARGE MEDICATIONS: As follows: Tylenol 650 mg p.r.n. q. 6, Zyrtec 10 mg every day for allergies, aspirin 81 mg daily, atorvastatin 20 mg daily, carvedilol 6.25 b.i.d., vitamin D 50,000 units weekly, Flonase 2 sprays each nostril daily, folic acid in the form of Nephro-Manuel daily, Lasix 40 mg daily, hydralazine 50 mg b.i.d., insulin Lantus 6 units with breakfast, levothyroxine 75 mcg daily, pantoprazole 40 mg daily, sertraline 25 mg daily, Carafate 1 gram before meals and at bedtime, tramadol 50 mg q. 6 p.r.n. and trazodone 50 mg at bedtime for sleep. NIKKI ROMERO MD DR: FIONA/pradip JOB#: [id number] / [id number]
--- NOTE | 2018-08-26 13:49 | RESP ---
DATE OF SERVICE: 08/23/2018 NOCTURNAL OXIMETRY The patient underwent nocturnal oximetry study. The patient's mean oxygen saturation remained around 97% with the lowest of 89%. No significant desaturation of less than 90% observed. The patient remained sleepy most of the night. IMPRESSION: Normal nocturnal oximetry study with no significant desaturations. BEE HUTCHINSON MD DR: ROSY/pradip JOB#: [id number] / [id number]
== END 2018-08-24 15:00 | DRG 314 ==
LOC: ER 10:59 → 5 NORTH 14:18
PROVIDERS: ADMIT Family Medicine; ATTEND Family Medicine
PROC: 5A1D70Z Performance of Urinary Filtration, Intermittent, Less than 6 Hours Per Day (ICD-10-PCS; principal; 2018-08-24)
DX: T82.838A Hemorrhage due to vascular prosthetic devices, implants and grafts, initial encounter (principal); N18.6 End stage renal disease; I13.2 Hypertensive heart and chronic kidney disease with heart failure and with stage 5 chronic kidney disease, or end stage renal disease; T82.510A Breakdown (mechanical) of surgically created arteriovenous fistula, initial encounter; I50.9 Heart failure, unspecified; E11.22 Type 2 diabetes mellitus with diabetic chronic kidney disease; E78.5 Hyperlipidemia, unspecified; E89.0 Postprocedural hypothyroidism; F03.90 Unspecified dementia, unspecified severity, without behavioral disturbance, psychotic disturbance, mood disturbance, and anxiety; F32.9 Major depressive disorder, single episode, unspecified; G47.33 Obstructive sleep apnea (adult) (pediatric); I25.10 Atherosclerotic heart disease of native coronary artery without angina pectoris; K21.9 Gastro-esophageal reflux disease without esophagitis; Y71.2 Prosthetic and other implants, materials and accessory cardiovascular devices associated with adverse incidents; Y84.1 Kidney dialysis as the cause of abnormal reaction of the patient, or of later complication, without mention of misadventure at the time of the procedure; Z83.3 Family history of diabetes mellitus; E21.3 Hyperparathyroidism, unspecified; Z85.3 Personal history of malignant neoplasm of breast; Z86.711 Personal history of pulmonary embolism; Z86.73 Personal history of transient ischemic attack (TIA), and cerebral infarction without residual deficits; Z90.710 Acquired absence of both cervix and uterus; Z95.810 Presence of automatic (implantable) cardiac defibrillator; Z99.2 Dependence on renal dialysis; Z99.81 Dependence on supplemental oxygen; Z90.13 Acquired absence of bilateral breasts and nipples; Z88.8 Allergy status to other drugs, medicaments and biological substances; Z91.048 Other nonmedicinal substance allergy status
CPT/HCPCS: 36415; 80048; 82962; 83036; 84443; 85007; 85025; 85610; 85730; 94799; J1815; 97116; 97535

== ENCOUNTER 2018-09-21 05:43 | Emergency (ER) | payer MEDICARE, OTHER ==
[~2018-09-21] VITALS: Ht 154.9 cm; Wt 61.7 kg
[~2018-09-21 05:43] MED LIST changes: +ACET325T9 PO; +CETI10TA16 PO
[2018-09-21 06:00] VITALS: BP 164/72
[2018-09-21] MEDS ORDERED: fentaNYL PF VIAL 100 MCG/2 ML VIAL IM ONE (06:15)
--- NOTE | 2018-09-21 06:33 | PHYS DOC ---
Past Medical History Past Medical History: Cancer, CHF, CVA, Diabetes-Type II, GERD, Hypertension, Hypothyroid, Renal Failure, TIA, Additional Disease, Other Additional Past Medical Histor: Breast CA Past Surgical History: Cancer Surgery, Cholecystectomy, Hysterectomy, Pacemaker, Other Additional Past Surgical Histo: Graft RUE; bilateral mastectomy; thyroidectomy; hernia Alcohol Use: None Drug Use: None Adult General Chief Complaint Chief Complaint: chronic pain exacerbation HPI HPI Patient is a 83 year old female with history of chronic renal failure on dialysis who brought in by EMS because of pain in left rib cage and right hip and right knee. Patient states she has had chronic pain in her left rib cage and extremity for a long time and currently taking rehabilitation for her chronic p ain. Patient states for the last 3 days she has had increasing pain after physical therapy patient complains of pain in left rib cage with radiation to right hip and right knee as sharp and constant pain that getting worse with movement and taking deep breaths. Patient rated her pain 10 over 10 and states she used to take tramadol for her pain but she ran out of her medication and called her physician yesterday but then gets different of trauma. Patient didn't take any [id number] pain medication. Patient was on her way to go to dialysis this morning and called 911 regarding severe pain. Patient denies chest pain, shortness of breath, nausea and vomiting, focal neuro deficit, fever and chills. Review of Systems Review of Systems Constitutional: Denies fever or chills [] Eyes: Denies change in visual acuity, redness, or eye pain [] HENT: Denies nasal congestion or sore throat [] Respiratory: Denies cough or shortness of breath [] Cardiovascular: No additional information not addressed in HPI [] GI: Denies abdominal pain, nausea, vomiting, bloody stools or diarrhea [] : Denies dysuria or hematuria [] Musculoskeletal: Denies back pain, reports joint pain [] Integument: Denies rash or skin lesions [] Neurologic: Denies headache, focal weakness or sensory changes [] Endocrine: Denies polyuria or polydipsia [] All other systems were reviewed and found to be within normal limits, except as documented in this note. Current Medications Current Medications Current Medications Medications (Trade) Dose Ordered Sig/Sahil Start Time Stop Time Status Last Admin Dose Admin Fentanyl Citrate (Fentanyl 2ml Vial) 50 mcg 1X ONCE 09/21/18 06:15 09/21/18 06:16 DC 09/21/18 06:23 50 MCG Allergies Allergies Allergies Coded Allergies Type Severity Reaction Last Updated Verified adhesive tape Allergy Intermediate PAPER TAPE 09/27/17 Yes morphine Allergy Mild Itching 03/15/18 Yes Physical Exam Physical Exam Constitutional: Well developed, well nourished, mild distress, non-toxic appearance. [] HENT: Normocephalic, atraumatic. [] Eyes: PERRLA, EOMI, conjunctiva normal, no discharge. [] Neck: Normal range of motion, no tenderness, supple, no stridor. [] Cardiovascular:Heart rate regular rhythm, no murmur [] Lungs & Thorax: Bilateral breath sounds clear to auscultation , left lower lateral chest wall without sign of injury or deformity, reproducible pain[] Skin: Warm, dry, no erythema, no rash. [] Back: No tenderness, no CVA tenderness. [] Extremities: No tenderness, no cyanosis, no clubbing, ROM intact, no edema. [] Neurologic: Alert and oriented X 3, normal motor function, normal sensory function, no focal deficits noted. [] Psychologic: Affect normal, judgement normal, mood normal. [] Current Patient Data Vital Signs Vital Signs Date Time Temp Pulse Resp B/P (MAP) Pulse Ox O2 Delivery O2 Flow Rate FiO2 09/21/18 06:23 19 98 Room Air 09/21/18 06:00 98.4 72 164/72 (102) 98.4 EKG EKG [] Radiology/Procedures Radiology/Procedures [] Course & Med Decision Making Course & Med Decision Making Evaluation of patient in ER showed 83-year-old female patient brought in by EMS because of chronic pain exacerbation that improved with fentanyl. Patient had appointment for dialysis this morning and after contacting the dialysis center, they plan to perform dialysis for her as well as she get there Patient was discharged with family member to go to dialysis. Dragon Disclaimer Dragon Disclaimer This electronic medical record was generated, in whole or in part, using a voice recognition dictation system. Departure Departure Impression: Primary Impression: Chronic pain Additional Impression: Chronic kidney disease with end stage renal failure on dialysis Disposition: HOME, SELF-CARE (At 0636 to dialysis center) Condition: IMPROVED Referrals: CHAPARRITA CALDERON MD (PCP) Patient Instructions: Chronic Pain, Chronic Pain Management Additional Instructions: Fallow up with your scheduled dialysis today Follow up with your primary care physician for refill of pain medication Return to ER if not getting better Scripts Tramadol Hcl (ULTRAM) 50 Mg Tablet 50 MG PO Q6HRS PRN for PAIN, #14 TAB 0 Refills Prov: PAMELLA TAYLOR MD 09/21/18 Problem Qualifiers Primary Impression: Chronic pain Chronic pain type: other chronic pain Qualified Codes: G89.29 - Other chronic pain PAMELLA TAYLOR MD September 21, 2018 06:33
[2018-09-21] MEDS ORDERED: TRAM-48 PO (06:39)
== END 2018-09-21 06:48 | disposition home or self-care (01) ==
LOC: ER 05:43
DX: I13.2 Hypertensive heart and chronic kidney disease with heart failure and with stage 5 chronic kidney disease, or end stage renal disease (principal); E11.22 Type 2 diabetes mellitus with diabetic chronic kidney disease; N18.6 End stage renal disease; I50.9 Heart failure, unspecified; G89.29 Other chronic pain; R07.81 Pleurodynia; M25.551 Pain in right hip; M25.561 Pain in right knee; Z99.2 Dependence on renal dialysis; K21.9 Gastro-esophageal reflux disease without esophagitis; E03.9 Hypothyroidism, unspecified; Z86.73 Personal history of transient ischemic attack (TIA), and cerebral infarction without residual deficits; Z90.49 Acquired absence of other specified parts of digestive tract; Z90.710 Acquired absence of both cervix and uterus; Z95.0 Presence of cardiac pacemaker; Z98.890 Other specified postprocedural states; Z88.5 Allergy status to narcotic agent; Z88.8 Allergy status to other drugs, medicaments and biological substances
CPT/HCPCS: 96372; 99283; J3010

== ENCOUNTER 2018-10-31 08:31 | Emergency (ER) | payer MEDICARE, OTHER ==
[~2018-10-31] VITALS: Ht 154.9 cm; Wt 62.1 kg
[~2018-10-31 08:31] MED LIST changes: +TRAM-48 PO
--- NOTE | 2018-10-31 08:46 | PHYS DOC ---
Past Medical History Past Medical History: Cancer, CHF, CVA, Diabetes-Type II, GERD, Hypertension, Hypothyroid, Renal Failure, TIA, Additional Disease, Other Additional Past Medical Histor: Breast CA Past Surgical History: Cancer Surgery, Cholecystectomy, Hysterectomy, Pacemaker, Other Additional Past Surgical Histo: Graft RUE; bilateral mastectomy; thyroidectomy; hernia Alcohol Use: None Drug Use: None Adult General HPI HPI Patient is a 83 year old female with hx of left breast Ca-treated CHF, CVA, Diabetes-Type II, GERD, Hypertension, Hypothyroid, TIA, ESRD, on dialysis Sunday, , Sunday who presents to the ED from dialysis to be evaluated for central blurry vision that began while at dialysis. Patient states typically she gets blurry revision if she is hypotensive during dialysis. She states her blood pressure was low during dialysis. Patient states symptoms have improved on arrival to the ED. She states she only had 90 minutes left before her dialysis session was over. Patient denies any shortness of breath, denies any chest pain. She still has a dialysis clamp to the RUE she states she has hx of bleeding. Review of Systems Review of Systems Constitutional: Denies fever or chills [] Eyes: Reports blurry vision. Denies change in visual acuity, redness, or eye pain [] HENT: Denies nasal congestion or sore throat [] Respiratory: Denies cough or shortness of breath [] Cardiovascular: No additional information not addressed in HPI [] GI: Denies abdominal pain, nausea, vomiting, bloody stools or diarrhea [] : Denies dysuria or hematuria [] Musculoskeletal: Denies back pain or joint pain [] Integument: Denies rash or skin lesions [] Neurologic: Denies headache, focal weakness or sensory changes [] Endocrine: ESRD All other systems were reviewed and found to be within normal limits, except as documented in this note. Current Medications Current Medications Current Medications Medications (Trade) Dose Ordered Sig/Sahil Start Time Stop Time Status Last Admin Dose Admin Ondansetron HCl (Zofran Odt) 4 mg 1X ONCE 10/31/18 10:15 10/31/18 10:16 DC Allergies Allergies Allergies Coded Allergies Type Severity Reaction Last Updated Verified adhesive tape Allergy Intermediate PAPER TAPE 09/27/17 Yes morphine Allergy Mild Itching 03/15/18 Yes Physical Exam Physical Exam Constitutional: Well developed, well nourished, no acute distress, non-toxic appearance. [] HENT: Normocephalic, atraumatic, bilateral external ears normal, oropharynx moist, no oral exudates, nose normal. [] Eyes: PERRLA, EOMI, conjunctiva normal, no discharge. [] Neck: Normal range of motion, no tenderness, supple, no stridor. [] Cardiovascular:Heart rate regular rhythm, no murmur [] Lungs & Thorax: Bilateral breath sounds clear to auscultation [] Abdomen: Bowel sounds normal, soft, no tenderness, no masses, no pulsatile masses. [] Skin: Warm, dry, RUE with dialysis clamp. No bleeding Back: No tenderness, no CVA tenderness. [] Extremities: No tenderness, no cyanosis, no clubbing, ROM intact, no edema. [] Neurologic: Alert and oriented X 3, normal motor function, normal sensory function, no focal deficits noted. Cranial nerves II-XII intact Psychologic: Affect normal, judgement normal, mood normal. [] Current Patient Data Vital Signs Vital Signs Date Time Temp Pulse Resp B/P (MAP) Pulse Ox O2 Delivery O2 Flow Rate FiO2 10/31/18 08:45 98.0 81 20 144/66 (92) 94 Room Air 98.0 Lab Values Laboratory Tests Test 10/31/18 08:50 White Blood Count 5.3 x10^3/uL (4.0-11.0) Red Blood Count 3.57 x10^6/uL (3.50-5.40) Hemoglobin 11.6 g/dL (12.0-15.5) L Hematocrit 36.0 % (36.0-47.0) Mean Corpuscular Volume 101 fL (79-100) H Mean Corpuscular Hemoglobin 33 pg (25-35) Mean Corpuscular Hemoglobin Concent 32 g/dL (31-37) Red Cell Distribution Width 15.3 % (11.5-14.5) H Platelet Count 112 x10^3/uL (140-400) L Neutrophils (%) (Auto) 78 % (31-73) H Lymphocytes (%) (Auto) 8 % (24-48) L Monocytes (%) (Auto) 12 % (0-9) H Eosinophils (%) (Auto) 2 % (0-3) Basophils (%) (Auto) 1 % (0-3) Neutrophils # (Auto) 4.2 x10^3uL (1.8-7.7) Lymphocytes # (Auto) 0.4 x10^3/uL (1.0-4.8) L Monocytes # (Auto) 0.7 x10^3/uL (0.0-1.1) Eosinophils # (Auto) 0.1 x10^3/uL (0.0-0.7) Basophils # (Auto) 0.0 x10^3/uL (0.0-0.2) Prothrombin Time 14.2 SEC (11.7-14.0) H Prothrombin Time INR 1.1 (0.8-1.1) Sodium Level 135 mmol/L (136-145) L Potassium Level 3.7 mmol/L (3.5-5.1) Chloride Level 102 mmol/L (98-107) Carbon Dioxide Level 20 mmol/L (21-32) L Anion Gap 13 (6-14) Blood Urea Nitrogen 22 mg/dL (7-20) H Creatinine 3.3 mg/dL (0.6-1.0) H Estimated GFR (Cockcroft-Gault) 16.2 BUN/Creatinine Ratio 7 (6-20) Glucose Level 189 mg/dL (70-99) H Calcium Level 8.2 mg/dL (8.5-10.1) L Magnesium Level 1.7 mg/dL (1.8-2.4) L Total Bilirubin 0.5 mg/dL (0.2-1.0) Aspartate Amino Transferase (AST) 21 U/L (15-37) Alanine Aminotransferase (ALT) 11 U/L (14-59) L Alkaline Phosphatase 260 U/L (46-116) H Creatine Kinase 83 U/L (26-192) Creatine Kinase MB (Mass) 5.3 ng/mL (0.0-3.6) H Creatine Kinase MB Relative Index 6.4 % (0-4) H Troponin I Quantitative 0.051 ng/mL (0.000-0.055) DU-Lej-C-Type Natriuretic Peptide 59811 pg/mL (0-449) H Total Protein 7.8 g/dL (6.4-8.2) Albumin 3.2 g/dL (3.4-5.0) L Albumin/Globulin Ratio 0.7 (1.0-1.7) L Thyroid Stimulating Hormone (TSH) 3.728 uIU/mL (0.358-3.74) Laboratory Tests 10/31/18 08:50 Laboratory Tests 10/31/18 08:50 EKG EKG [address] Hummel sinus rhyth, no ST elevations, inverted T waves on the lateral leads. Radiology/Procedures Radiology/Procedures []PROCEDURE: PORTABLE CHEST 1V Portable chest, 10/31/2018: HISTORY: Blurry vision Comparison is made to a study from 08/21/2018. A left-sided transvenous pacemaker remains in place with 2 leads extending into the right heart. A vascular stent is projected over the right innominate vein region. The heart is enlarged. There is calcific plaquing and tortuosity of the thoracic aorta. The pulmonary vascularity is normal. No pulmonary infiltrate is seen. There is no evidence of pleural fluid. IMPRESSION: 1. Cardiomegaly and aortic atherosclerosis. 2. No acute cardiopulmonary abnormality is detected. Electronically signed by: Toñito Herr MD (10/31/2018 9:04 AM) [facility] DICTATED and SIGNED BY: TOÑITO HERR MD DATE: 10/31/1804 PROCEDURE: CT HEAD WO CONTRAST EXAM: CT Head without IV contrast CLINICAL HISTORY: COMPARISON: None. TECHNIQUE: Routine CT of the head without contrast. Soft tissues and bone windows were reviewed. RS compliance statement - One or more of the following individualized dose reduction techniques were utilized for this study: 1. Automated exposure control 2. Adjustment of the mA and/or kV according to patient size 3. Use of iterative reconstruction technique FINDINGS: There is no evidence of hemorrhage, mass or extra-axial fluid collection. Subcortical and periventricular foci of hypoattenuation are seen likely changes of chronic small vessel disease. Particularly prominent left frontal region, stable. Old lacunar infarct left basal ganglia. Changes of old infarct right posterior parietal occipital region is also stable. There is no mass effect or shift of the intracranial structures. The ventricles, basilar cisterns and cortical sulci are normal in size and configuration for the patients stated age. The cerebellum and brainstem are unremarkable. The calvarium demonstrates no evidence of fracture or focal lesion. There is normal aeration of the visualized paranasal sinuses and mastoid air cells. The visualized portions of the orbits are normal. IMPRESSION: 1. No evidence for acute intracranial process. If there is clinical concern for acute infarct, MRI is recommended. 2. Changes of chronic small vessel disease are seen. Electronically signed by: Germán Martin MD (10/31/2018 9:33 AM) [id number] DICTATED and SIGNED BY: GERMÁN MARTIN MD DATE: 10/31/18 0933 Course & Med Decision Making Course & Med Decision Making Pertinent Labs and Imaging studies reviewed. (See chart for details) This is a 83-year-old female patient presenting to the ED today from dialysis because she had central blurry vision during dialysis session which she states occurs when her BP is low. On arrival to the ED, she states the blurry vision has improved. Vitals on arrival to the ED blood pressure 144/60 temperature 98.0, heart rate 81, respiration 20, O2 sats 94% on room air. CBC with normal WBC, hemoglobin 11.6, hematocrit 36%. CMP with creatinine of 3.3, BUN 22, the rest of the lab work was negative for any acute findings includ ing ALK of 260-has hx of elevated ALK no abd pain last value was 240. EKG was noted for inverted T waves once on the lateral leads. Patient has no chest, troponin 0.051, chest x-ray and CT of the head were negative for any acute findings. While in the ED, patient stated her symptoms have cleared up, she even requested a meal tray which was given to her, she eat and requeted to be discharged to [facility]. She was discharged to home, instructed to follow-up with her own PCP in the course of this week. Dragon Disclaimer Dragon Disclaimer This electronic medical record was generated, in whole or in part, using a voice recognition dictation system. Departure Departure Impression: Primary Impression: Blurry vision, bilateral Additional Impression: ESRD on dialysis Disposition: HOME, SELF-CARE Condition: STABLE Referrals: CHAPARRITA CALDERON MD (PCP) follow up in 1 week Patient Instructions: Eye - Blurred Vision Additional Instructions: You were evaluated the emergency room, we recommend you follow-up with your primary care doctor in the course of this week or next week, please return to the ED at any point symptoms worsen. Problem Qualifiers GUILLAUME LEWIS [employer] SUPERVISOR Oct 31, 2018 08:46
[2018-10-31 09:01] LABS: BASO % 1 % (0-3); EOS # 0.1 x10^3/uL (0.0-0.7); EOS % 2 % (0-3); HEMOGLOBIN 11.6 g/dL (12.0-15.5); LYMPH # 0.4 x10^3/uL (1.0-4.8); LYMPH % 8 % (24-48); MEAN CORPUSCULAR HEMOGLOBIN 33 pg (25-35); MEAN CORPUSCULAR HGB CONC 32 g/dL (31-37); MEAN CORPUSCULAR VOLUME 101 fL (79-100); MONO # 0.7 x10^3/uL (0.0-1.1); MONO % 12 % (0-9); NEUT # 4.2 x10^3uL (1.8-7.7); NEUT % 78 % (31-73); PLATELET COUNT 112 x10^3/uL (140-400); RED BLOOD COUNT 3.57 x10^6/uL (3.50-5.40); RED CELL DISTRIBUTION WIDTH 15.3 % (11.5-14.5); WHITE BLOOD COUNT 5.3 x10^3/uL (4.0-11.0)
--- NOTE | 2018-10-31 09:06 | RAD ---
Portable chest, 10/31/2018: HISTORY: Blurry vision Comparison is made to a study from 08/21/2018. A left-sided transvenous pacemaker remains in place with 2 leads extending into the right heart. A vascular stent is projected over the right innominate vein region. The heart is enlarged. There is calcific plaquing and tortuosity of the thoracic aorta. The pulmonary vascularity is normal. No pulmonary infiltrate is seen. There is no evidence of pleural fluid. IMPRESSION: 1. Cardiomegaly and aortic atherosclerosis. 2. No acute cardiopulmonary abnormality is detected. Electronically signed by: Toñito Herr MD (10/31/2018 9:04 AM) [facility]
[2018-10-31 09:11] LABS: PROTHROMBIN TIME PATIENT 14.2 SEC (11.7-14.0)
--- NOTE | 2018-10-31 09:12 | EKG ---
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
[2018-10-31 09:15] LABS: CALCIUM 8.2 mg/dL (8.5-10.1); CREATININE 3.3 mg/dL (0.6-1.0); GFR 16.2; POTASSIUM 3.7 mmol/L (3.5-5.1)
[2018-10-31 09:20] LABS: ALBUMIN 3.2 g/dL (3.4-5.0); ALBUMIN/GLOBULIN RATIO 0.7 (1.0-1.7); MAGNESIUM 1.7 mg/dL (1.8-2.4); TOTAL BILIRUBIN 0.5 mg/dL (0.2-1.0); TOTAL PROTEIN 7.8 g/dL (6.4-8.2)
--- NOTE | 2018-10-31 09:36 | RAD ---
EXAM: CT Head without IV contrast CLINICAL HISTORY: COMPARISON: None. TECHNIQUE: Routine CT of the head without contrast. Soft tissues and bone windows were reviewed. PQRS compliance statement - One or more of the following individualized dose reduction techniques were utilized for this study: 1. Automated exposure control 2. Adjustment of the mA and/or kV according to patient size 3. Use of iterative reconstruction technique FINDINGS: There is no evidence of hemorrhage, mass or extra-axial fluid collection. Subcortical and periventricular foci of hypoattenuation are seen likely changes of chronic small vessel disease. Particularly prominent left frontal region, stable. Old lacunar infarct left basal ganglia. Changes of old infarct right posterior parietal occipital region is also stable. There is no mass effect or shift of the intracranial structures. The ventricles, basilar cisterns and cortical sulci are normal in size and configuration for the patients stated age. The cerebellum and brainstem are unremarkable. The calvarium demonstrates no evidence of fracture or focal lesion. There is normal aeration of the visualized paranasal sinuses and mastoid air cells. The visualized portions of the orbits are normal. IMPRESSION: 1. No evidence for acute intracranial process. If there is clinical concern for acute infarct, MRI is recommended. 2. Changes of chronic small vessel disease are seen. Electronically signed by: Germán Centeno MD (10/31/2018 9:33 AM) [id number]
[2018-10-31] MEDS ORDERED: ONDANSETRON ODT 4 MG TAB.RAPDIS. PO ONE (10:15)
[2018-10-31 10:30] VITALS: BP 161/77
== END 2018-10-31 11:11 | disposition home or self-care (01) ==
LOC: ER 08:31
DX: H53.8 Other visual disturbances (principal); I13.2 Hypertensive heart and chronic kidney disease with heart failure and with stage 5 chronic kidney disease, or end stage renal disease; E11.22 Type 2 diabetes mellitus with diabetic chronic kidney disease; N18.6 End stage renal disease; I50.9 Heart failure, unspecified; Z99.2 Dependence on renal dialysis; E03.9 Hypothyroidism, unspecified; Z86.73 Personal history of transient ischemic attack (TIA), and cerebral infarction without residual deficits; K21.9 Gastro-esophageal reflux disease without esophagitis; Z95.0 Presence of cardiac pacemaker; Z90.49 Acquired absence of other specified parts of digestive tract; Z90.710 Acquired absence of both cervix and uterus; Z88.5 Allergy status to narcotic agent; Z88.8 Allergy status to other drugs, medicaments and biological substances
CPT/HCPCS: 36415; 70450; 71045; 80053; 82553; 83735; 83880; 84443; 84484; 85025; 85610; 93005; 99285-25

== ENCOUNTER 2018-11-19 11:45 | Emergency (ER) | payer MEDICARE, OTHER ==
[~2018-11-19] VITALS: Ht 154.9 cm; Wt 64.9 kg
[~2018-11-19 11:45] MED LIST changes: +ALBU2.5V8 NEB; +DICL100G18 TP; +DOCU-109 PO; +INSU100I11 SQ; -PANT40TA3 PO; +PANT40TA77 PO; +TICA90TA PO
--- NOTE | 2018-11-19 12:10 | PHYS DOC ---
Past Medical History Past Medical History: Cancer, CHF, CVA, Diabetes-Type II, GERD, Hypertension, Hypothyroid, Renal Failure, TIA, Additional Disease, Other Additional Past Medical Histor: Breast CA Past Surgical History: Cancer Surgery, Cholecystectomy, Hysterectomy, Pacemaker, Other Additional Past Surgical Histo: Graft RUE; bilateral mastectomy; thyroidectomy; hernia Alcohol Use: None Drug Use: None Adult General Chief Complaint Chief Complaint: NEAR SYNCOPE HPI HPI Patient is an 83-year-old female who presents to the emergency department for evaluation. She was at dialysis, and began getting lightheaded and hypotensive, and having some blackout of her vision. Dialysis staff recorded blood pressure in the 60s systolic. They put back more fluid via the dialysis machine, the patient's blood pressure improved, as did her symptoms. She states she still feels a little weak, but her blood pressure is normal at the time of arrival in the emergency department. She denies any new pain. She did have a little nausea and some diarrhea while at dialysis, but states that she has this occasionally. She denies any chest pain or shortness of breath, headache, numbness, or focal weakness. The patient has significantly improved, and she is able to read my name of my badge without difficulty. There are no alleviating or exacerbating factors to her symptoms, except as noted above. Patient was recently hospitalized for an NSTEMI, discharged yesterday, after treatment for in-stent stenosis. Notes from her recent hospital stay have been reviewed.. Review of Systems Review of Systems Constitutional: Denies fever or chills [] Eyes: Denies eye redness, or eye pain [] HENT: Denies nasal congestion or sore throat [] Respiratory: Denies cough or shortness of breath [] Cardiovascular:The patient denies any shortness of breath, chest pain, palpitations, or orthopnea [] GI: No additional information not addressed in HPI [] : Denies dysuria or hematuria [] Musculoskeletal: Denies back pain or joint pain [] Integument: Denies rash or skin lesions [] Neurologic: Denies headache, focal weakness or sensory changes [] Endocrine: Denies polyuria or polydipsia [] All other systems were reviewed and found to be within normal limits, except as documented in this note. Allergies Allergies Allergies Coded Allergies Type Severity Reaction Last Updated Verified adhesive tape Allergy Intermediate PAPER TAPE 09/27/17 Yes morphine Allergy Mild Itching 03/15/18 Yes Physical Exam Physical Exam PHYSICAL EXAM: CONSTITUTIONAL: Well developed, well nourished HEAD: normocephalic, atraumatic EENT: PERRL, EOMI. Conjunctivae normal color, sclerae non-icteric; moist mucous membranes. NECK: Supple, non-tender; no meningismus. LUNGS: Lungs CTA, breathing even and unlabored. Normal air movement. HEART: Regular rate and rhythm, no murmur CHEST: No deformity; non-tender ABDOMEN: The abdomen is soft, and non-tender, no masses or bruits. EXTREM: Normal ROM; no deformity, no calf tenderness. Normal pulses palpable in all extremities. There is no pedal edema. There is an AV fistula in the right upper extremity SKIN: No rash; no diaphoresis NEURO: Alert; normal speech and cognition; CN's grossly intact; strength grossly intact without focal deficit.Visual zepeda are intact by confrontation. BACK: No CVA TTP. Current Patient Data Vital Signs Vital Signs Date Time Temp Pulse Resp B/P (MAP) Pulse Ox O2 Delivery O2 Flow Rate FiO2 11/19/18 11:49 98.2 79 16 138/64 (88) 97 Room Air 98.2 Lab Values Laboratory Tests Test 11/19/18 13:05 White Blood Count 7.2 x10^3/uL (4.0-11.0) Red Blood Count 3.11 x10^6/uL (3.50-5.40) L Hemoglobin 10.3 g/dL (12.0-15.5) L Hematocrit 31.5 % (36.0-47.0) L Mean Corpuscular Volume 101 fL (79-100) H Mean Corpuscular Hemoglobin 33 pg (25-35) Mean Corpuscular Hemoglobin Concent 33 g/dL (31-37) Red Cell Distribution Width 15.7 % (11.5-14.5) H Platelet Count 164 x10^3/uL (140-400) Neutrophils (%) (Auto) 80 % (31-73) H Lymphocytes (%) (Auto) 6 % (24-48) L Monocytes (%) (Auto) 13 % (0-9) H Eosinophils (%) (Auto) 2 % (0-3) Basophils (%) (Auto) 1 % (0-3) Neutrophils # (Auto) 5.7 x10^3uL (1.8-7.7) Lymphocytes # (Auto) 0.4 x10^3/uL (1.0-4.8) L Monocytes # (Auto) 0.9 x10^3/uL (0.0-1.1) Eosinophils # (Auto) 0.1 x10^3/uL (0.0-0.7) Basophils # (Auto) 0.0 x10^3/uL (0.0-0.2) Sodium Level 136 mmol/L (136-145) Potassium Level 4.1 mmol/L (3.5-5.1) Chloride Level 100 mmol/L (98-107) Carbon Dioxide Level 25 mmol/L (21-32) Anion Gap 11 (6-14) Blood Urea Nitrogen 14 mg/dL (7-20) Creatinine 3.0 mg/dL (0.6-1.0) H Estimated GFR (Cockcroft-Gault) 18.0 BUN/Creatinine Ratio 5 (6-20) L Glucose Level 225 mg/dL (70-99) H Calcium Level 8.5 mg/dL (8.5-10.1) Total Bilirubin 1.1 mg/dL (0.2-1.0) H Aspartate Amino Transferase (AST) 24 U/L (15-37) Alanine Aminotransferase (ALT) 12 U/L (14-59) L Alkaline Phosphatase 305 U/L (46-116) H Troponin I Quantitative 0.049 ng/mL (0.000-0.055) Total Protein 7.6 g/dL (6.4-8.2) Albumin 3.3 g/dL (3.4-5.0) L Albumin/Globulin Ratio 0.8 (1.0-1.7) L Laboratory Tests 11/19/18 13:05 Laboratory Tests 11/19/18 13:05 EKG EKG Normal sinus rhythm at a rate of 76 bpm, left axis deviation, normal intervals, lateral T wave inversion, without acute ischemic ST/T changes, the EKG is not significant change compared to patient's EKG from 11/13/18.[] Radiology/Procedures Radiology/Procedures [PROCEDURE: PORTABLE CHEST 1V PORTABLE CHEST 1V Clinical Indication: Weakness Comparison: AP chest, November 13, 2018. Findings: Left chest dual-chamber ICD and right paramediastinal vascular stent are stable. Atherosclerotic thoracic aorta. Cardiac size upper limits of normal but stable. Lungs are clear. There is no pneumothorax. No pleural effusion is appreciated. No acute bone abnormality. IMPRESSION: No acute cardiopulmonary process. ] Course & Med Decision Making Course & Med Decision Making Pertinent Labs and Imaging studies reviewed. (See chart for details) []Patient's condition remained stable. Her hemodynamics remained stable and she has no complaints at this time. She is ready for discharge back to her rehabilitation facility. Dragon Disclaimer Dragon Disclaimer This electronic medical record was generated, in whole or in part, using a voice recognition dictation system. Departure Departure Impression: Primary Impression: Hypotension of hemodialysis Disposition: HOME, SELF-CARE Condition: STABLE Referrals: CHAPARRITA CALDERON MD (PCP) Patient Instructions: Dialysis, Care After, Hypotension XIAO MARIANO MD Nov 19, 2018 12:10
--- NOTE | 2018-11-19 12:15 | EKG ---
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
--- NOTE | 2018-11-19 12:33 | RAD ---
PORTABLE CHEST 1V Clinical Indication: Weakness Comparison: AP chest, November 13, 2018. Findings: Left chest dual-chamber ICD and right paramediastinal vascular stent are stable. Atherosclerotic thoracic aorta. Cardiac size upper limits of normal but stable. Lungs are clear. There is no pneumothorax. No pleural effusion is appreciated. No acute bone abnormality. IMPRESSION: No acute cardiopulmonary process. Electronically signed by: Bg Zepeda MD (11/19/2018 12:30 PM) [id number]
[2018-11-19 13:13] LABS: BASO % 1 % (0-3); EOS # 0.1 x10^3/uL (0.0-0.7); EOS % 2 % (0-3); HEMATOCRIT 31.5 % (36.0-47.0); HEMOGLOBIN 10.3 g/dL (12.0-15.5); LYMPH # 0.4 x10^3/uL (1.0-4.8); LYMPH % 6 % (24-48); MEAN CORPUSCULAR HEMOGLOBIN 33 pg (25-35); MEAN CORPUSCULAR HGB CONC 33 g/dL (31-37); MEAN CORPUSCULAR VOLUME 101 fL (79-100); MONO # 0.9 x10^3/uL (0.0-1.1); MONO % 13 % (0-9); NEUT # 5.7 x10^3uL (1.8-7.7); NEUT % 80 % (31-73); PLATELET COUNT 164 x10^3/uL (140-400); RED BLOOD COUNT 3.11 x10^6/uL (3.50-5.40); RED CELL DISTRIBUTION WIDTH 15.7 % (11.5-14.5); WHITE BLOOD COUNT 7.2 x10^3/uL (4.0-11.0)
[2018-11-19 13:22] LABS: CALCIUM 8.5 mg/dL (8.5-10.1); POTASSIUM 4.1 mmol/L (3.5-5.1)
[2018-11-19 13:28] LABS: ALBUMIN 3.3 g/dL (3.4-5.0); ALBUMIN/GLOBULIN RATIO 0.8 (1.0-1.7); TOTAL BILIRUBIN 1.1 mg/dL (0.2-1.0); TOTAL PROTEIN 7.6 g/dL (6.4-8.2)
[2018-11-19 14:21] VITALS: BP 138/60
== END 2018-11-19 15:10 | disposition home or self-care (01) ==
LOC: ER 11:45
DX: I95.3 Hypotension of hemodialysis (principal); R55 Syncope and collapse; K21.9 Gastro-esophageal reflux disease without esophagitis; I13.0 Hypertensive heart and chronic kidney disease with heart failure and stage 1 through stage 4 chronic kidney disease, or unspecified chronic kidney disease; E11.22 Type 2 diabetes mellitus with diabetic chronic kidney disease; N18.9 Chronic kidney disease, unspecified; I50.9 Heart failure, unspecified; E03.9 Hypothyroidism, unspecified; Z86.73 Personal history of transient ischemic attack (TIA), and cerebral infarction without residual deficits; Z95.0 Presence of cardiac pacemaker; Z88.5 Allergy status to narcotic agent; Z88.8 Allergy status to other drugs, medicaments and biological substances
CPT/HCPCS: 36415; 71045; 80053; 84484; 85025; 93005; 99285

== ENCOUNTER 2018-12-26 11:20 | Emergency (ER) | payer MEDICARE, OTHER ==
[~2018-12-26] VITALS: Ht 154.9 cm; Wt 65.3 kg
[2018-12-26 11:21] VITALS: BP 165/72
--- NOTE | 2018-12-26 11:35 | PHYS DOC ---
Past Medical History Past Medical History: Cancer, CHF, CVA, Diabetes-Type II, GERD, Hypertension, Hypothyroid, Renal Failure, TIA, Additional Disease, Other Additional Past Medical Histor: Breast CA Past Surgical History: Cancer Surgery, Cholecystectomy, Hysterectomy, Pacemaker, Other Additional Past Surgical Histo: Graft RUE; bilateral mastectomy; thyroidectomy; hernia Alcohol Use: None Drug Use: None Adult General Chief Complaint Chief Complaint: OTHER COMPLAINTS HPI HPI Patient is a 83 year old -[place] female end-stage renal dialysis patient presents with bleeding from dialysis fistula insertion site. Patient had to come off dialysis 20 minutes early this morning due to bleeding around needle catheter insertion site. Bleeding has since resolved. Patient's fistula is bandaged with a spring-loaded clamp in place. Reported 100 ML's of blood loss. Patient is not on anticoagulation therapy. Denies dizziness lightheadedness or any pain complaint. Patient states she has had prior episodes of postdialysis fistula bleeding. [] Review of Systems Review of Systems ROS as per HPI. All other systems were reviewed and found to be within normal limits, except as documented in this note. Allergies Allergies Allergies Coded Allergies Type Severity Reaction Last Updated Verified adhesive tape Allergy Intermediate PAPER TAPE 09/27/17 Yes morphine Allergy Mild Itching 03/15/18 Yes Physical Exam Physical Exam Constitutional: Well developed, well nourished, no acute distress, non-toxic appearance. [] HENT: Normocephalic, atraumatic, bilateral external ears normal, oropharynx mois t, no oral exudates, nose normal. [] Eyes: PERRLA, EOMI, conjunctiva normal, no discharge. [] Neck: Normal range of motion, no tenderness, supple, no stridor. [] Cardiovascular:Heart rate regular rhythm, no murmur [] Lungs & Thorax: Bilateral breath sounds clear to auscultation [] Extremities: Right upper extremity, L arm AV fisutala , bandage with springloaded clamp, bleeding controlled. Palpable thrill, good distal pulses. [] Neurologic: Alert and oriented X 3, normal motor function, normal sensory function, no focal deficits noted. [] Psychologic: Affect normal, judgement normal, mood normal. [] Current Patient Data Vital Signs Vital Signs Date Time Temp Pulse Resp B/P (MAP) Pulse Ox O2 Delivery O2 Flow Rate FiO2 12/26/18 11:21 97.6 71 18 165/72 (103) 99 Room Air 97.6 Lab Values Laboratory Tests Test 12/26/18 12:15 White Blood Count 4.9 x10^3/uL (4.0-11.0) Red Blood Count 3.78 x10^6/uL (3.50-5.40) Hemoglobin 12.9 g/dL (12.0-15.5) Hematocrit 39.7 % (36.0-47.0) Mean Corpuscular Volume 105 fL (79-100) H Mean Corpuscular Hemoglobin 34 pg (25-35) Mean Corpuscular Hemoglobin Concent 32 g/dL (31-37) Red Cell Distribution Width 16.6 % (11.5-14.5) H Platelet Count 137 x10^3/uL (140-400) L Neutrophils (%) (Auto) 78 % (31-73) H Lymphocytes (%) (Auto) 9 % (24-48) L Monocytes (%) (Auto) 13 % (0-9) H Eosinophils (%) (Auto) 1 % (0-3) Basophils (%) (Auto) 0 % (0-3) Neutrophils # (Auto) 3.8 x10^3/uL (1.8-7.7) Lymphocytes # (Auto) 0.4 x10^3/uL (1.0-4.8) L Monocytes # (Auto) 0.6 x10^3/uL (0.0-1.1) Eosinophils # (Auto) 0.0 x10^3/uL (0.0-0.7) Basophils # (Auto) 0.0 x10^3/uL (0.0-0.2) Sodium Level 137 mmol/L (136-145) Potassium Level 4.4 mmol/L (3.5-5.1) Chloride Level 103 mmol/L (98-107) Carbon Dioxide Level 24 mmol/L (21-32) Anion Gap 10 (6-14) Blood Urea Nitrogen 14 mg/dL (7-20) Creatinine 3.5 mg/dL (0.6-1.0) H Estimated GFR (Cockcroft-Gault) 15.1 Glucose Level 290 mg/dL (70-99) H Calcium Level 8.1 mg/dL (8.5-10.1) L Laboratory Tests 12/26/18 12:15 Laboratory Tests 12/26/18 12:15 EKG EKG [] Radiology/Procedures Radiology/Procedures [] Course & Med Decision Making Course & Med Decision Making Pertinent Labs and Imaging studies reviewed. (See chart for details) [Clamp reviewed. Labs reviewed, no bleeding through the age. Recommend patient leaving bandage in place until tomorrow and follow up with dialysis center a scheduled Sunday. ] Dragon Disclaimer Dragon Disclaimer This electronic medical record was generated, in whole or in part, using a voice recognition dictation system. Departure Departure Impression: Primary Impression: Bleeding due to dialysis catheter placement Disposition: HOME, SELF-CARE Condition: IMPROVED Referrals: CHAPARRITA CALDERON MD (PCP) Patient Instructions: Dialysis Additional Instructions: Please leave bandage in place over night. You may remove tomorrow morning. Follow up with your dialysis as scheduled. MLIANA KAPLAN DO Dec 26, 2018 11:35
[2018-12-26 12:24] LABS: BASO % 0 % (0-3); EOS % 1 % (0-3); HEMATOCRIT 39.7 % (36.0-47.0); HEMOGLOBIN 12.9 g/dL (12.0-15.5); LYMPH # 0.4 x10^3/uL (1.0-4.8); LYMPH % 9 % (24-48); MEAN CORPUSCULAR HEMOGLOBIN 34 pg (25-35); MEAN CORPUSCULAR HGB CONC 32 g/dL (31-37); MEAN CORPUSCULAR VOLUME 105 fL (79-100); MONO # 0.6 x10^3/uL (0.0-1.1); MONO % 13 % (0-9); NEUT # 3.8 x10^3/uL (1.8-7.7); NEUT % 78 % (31-73); PLATELET COUNT 137 x10^3/uL (140-400); RED BLOOD COUNT 3.78 x10^6/uL (3.50-5.40); RED CELL DISTRIBUTION WIDTH 16.6 % (11.5-14.5); WHITE BLOOD COUNT 4.9 x10^3/uL (4.0-11.0)
[2018-12-26 12:35] LABS: CALCIUM 8.1 mg/dL (8.5-10.1); CREATININE 3.5 mg/dL (0.6-1.0); GFR 15.1; POTASSIUM 4.4 mmol/L (3.5-5.1)
== END 2018-12-26 13:39 | disposition home or self-care (01) ==
LOC: ER 11:20
DX: T82.838A Hemorrhage due to vascular prosthetic devices, implants and grafts, initial encounter (principal); E11.22 Type 2 diabetes mellitus with diabetic chronic kidney disease; I13.2 Hypertensive heart and chronic kidney disease with heart failure and with stage 5 chronic kidney disease, or end stage renal disease; I50.9 Heart failure, unspecified; N18.6 End stage renal disease; Z99.2 Dependence on renal dialysis; K21.9 Gastro-esophageal reflux disease without esophagitis; E03.9 Hypothyroidism, unspecified; Z86.73 Personal history of transient ischemic attack (TIA), and cerebral infarction without residual deficits; Z90.710 Acquired absence of both cervix and uterus; Z90.49 Acquired absence of other specified parts of digestive tract; Z88.5 Allergy status to narcotic agent; Z88.8 Allergy status to other drugs, medicaments and biological substances; Y82.8 Other medical devices associated with adverse incidents; Y92.89 Other specified places as the place of occurrence of the external cause
CPT/HCPCS: 36415; 80048; 85025; 99284